=== PATIENT | male | born 1960 | race Caucasian/White ===

== ENCOUNTER 2017-07-08 15:14 | Emergency (ER) | payer BC ==
[~2017-07-08 15:14] MED LIST: CYCL10TA6 PO; DABI150C PO; DILT1CAP PO; FURO80TA63 PO; GLIM2TAB PO; HYDR-5688 PO; MELATAB2 PO; METO5TAB25 PO; POTA20TA16 PO; SUCR1TAB PO; SYN100 PO; TRC145 PO; TRIA0.2579 PO
[2017-07-08 15:20] VITALS: TEMP 36.4; Ht 177.8 cm
[2017-07-08] MEDS ORDERED: MoRPHine SULFATE 10 MG/ML CARP/VIAL IM STA (15:40)
[2017-07-08] MEDS ORDERED: MULTTAB58 PO (15:42)
[2017-07-08] MEDS ORDERED: ONDANSETRON 4MG OD TAB PO ONE (15:45)
[2017-07-08] MEDS ORDERED: DILT360C17 PO (15:59)
[2017-07-08] MEDS ORDERED: ESZO1TAB19 PO (15:59)
[2017-07-08] MEDS ORDERED: LEVO112T4 PO (15:59)
[2017-07-08] MEDS ORDERED: HYDR-3983 PO (15:59)
[2017-07-08] MEDS ORDERED: LSN5 PO (15:59)
[2017-07-08] MEDS ORDERED: FLX10 PO (16:04)
[2017-07-08] MEDS ORDERED: LSX80 PO (16:04)
[2017-07-08] MEDS ORDERED: CHOL20002 PO (16:07)
[2017-07-08] MEDS ORDERED: [UNRECOGNIZED DRUG - CODE] PO (16:07)
[2017-07-08] MEDS ORDERED: DULA1INJ INJ (16:07)
--- NOTE | 2017-07-08 16:42 | DIAGNOSTIC IMAGING REPORT ---
LUMBAR SPINE WITHOUT CLINICAL HISTORY: Right lumbar radiculitis. COMPARISON STUDY: CT of the abdomen and pelvis July 28, 2016. FINDINGS: For purposes of numbering on this exam, the L5-S1 disc space is assigned to axial image 669 of 783. Alignment of the lumbar spine is anatomic with the exception of mild levoscoliosis. Vertebral body heights are maintained. No fracture or suspicious lesion is dense 5. Note is made of a 3.9 x 3.7 cm infrarenal saccular abdominal aortic aneurysm with displaced intimal calcifications. This is similar to exam of July 28, 2016. There is no rupture. The left kidney is surgically absent. Central canal and neural foramen are suboptimally assessed by CT. T12-L1: The central canal and neural foramen are patent. L1-L2: The central canal and neural foramen are patent. L2-L3: There is mild disc bulge, ligamentous hypertrophy and facet arthrosis. There is mild narrowing of the central canal and lateral recesses. The neural foramen are patent. L3-L4: There is disc space narrowing with osteophytosis and vacuum disc phenomenon. There is disc bulge with ligamentous hypertrophy and facet arthrosis. Findings result in moderate narrowing of the central canal, lateral recesses and the right neural foramen. L4-L5: Disc bulge is noted. There is mild narrowing of the central canal and neural foramen. L5-S1: There is disc space narrowing with disc bulge and vacuum disc phenomenon. There is mild during of the central canal and lateral recesses with mild narrowing of the left neural foramen. IMPRESSION: 1. No acute lumbar spine fracture or subluxation. 2. Moderate multilevel degenerative disc disease and facet arthrosis, most pronounced at L3-L4. Suboptimal evaluation of the central canal and neural foramen but suspected moderate central canal stenosis at L3-L4. No disc herniation identified by CT. 3. Mild levoscoliosis of the lumbar spine. 4. 3.9 cm infrarenal saccular abdominal aortic aneurysm which is similar to CT of July 28, 2016. No rupture. Electronically signed by: Abdifatah Bledsoe M.D. 07/08/2017 4:40 PM Dictated Date/Time: 07/08/2017 4:28 PM
[2017-07-08 18:45] VITALS: BP 106/65; PULSE 89; O2SAT 96
[2017-07-08] MEDS ORDERED: OXYCODONE IR HOME PACK PO ONE (18:45)
[2017-07-08] MEDS ORDERED: FLEXERIL HOME PACK 10 MG VIAL PO ONE (18:45)
[2017-07-08] MEDS ORDERED: CYCL10TA6 PO (18:47)
[2017-07-08] MEDS ORDERED: OXYC1TAB3 PO (18:47)
[2017-07-08] MEDS ORDERED: TPRSR/100 PO (20:28)
[2017-07-08] MEDS ORDERED: MAGN1TAB19 PO (20:28)
[2017-07-08] MEDS ORDERED: PRAV80TA2 PO (20:33)
[2017-07-08] MEDS ORDERED: OXGN (20:33)
--- NOTE | 2017-07-08 22:52 | EMERGENCY ROOM VISIT NOTE ---
History First contact with patient: 15:28 Chief Complaint: LEG PAIN,LEG INJURY Stated Complaint: INTENSE PAIN IN RT LEG, LEG NOT WORKING History of Present Illness The patient is a 57 year old male who presents to the Emergency Room with complaints of lower pain radiating into the right lower extremity with weakness. The patient reports that he cannot put any weight on the leg at this point. The patient reports a history of chronic lumbar pain and osteoarthritis of the back and joints. He was seen by orthopedics and may for a left knee pain. A steroid shot was administered to the knee without any significant relief. The patient now reports that he has had right leg pain for the past 2 weeks. The pain is getting worse. The patient has an appointment scheduled with Dr. Guzman on 07/16. The patient reports that the weakness has significantly worsened over the past 2 days. He denies any recent infections, fevers or chills. He denies any recent trauma to the back. He has been taking [place] 7.5/ 325 without relief. He was able to find a left over oxycodone at home that allowed him to sleep last night for 8 hours. The patient reports that he has chronic diarrhea, but denies stool or urine incontinence. He denies saddle anesthesias. He reports that he cannot lift the leg because of pain and weakness. He currently rates his discomfort a 9 out of 10. Review of Systems 10 system review was performed and was negative except for pertinent positives and negatives as indicated in history of present illness Past Medical/Surgical History Medical Problems: (1) Abdominal pain (2) Acute on chronic diastolic heart failure (3) Acute on chronic systolic heart failure (4) GENE (acute kidney injury) (5) Anticoagulants,Lt,Current Use (6) Atrial fibrillation (7) Congestive Heart Failure Nos (8) Coronary Atherosclerosis Of [place] Coronary Vessel (9) Diabetes mellitus type 2 (10) Hyperlipidemia (11) Hypertensive disorder, systemic arterial (12) Hypotension (13) Hypothyroidism (14) Obstructive Sleep Apnea (Adult) (Pediatric) (15) possible ileus (16) Renal cell carcinoma (17) Renal insufficiency (18) Renal insufficiency Surgical Problems: (1) S/p nephrectomy Family History No family history noted Social History Smoking Status: Former Smoker Marital Status: single Occupation Status: disabled Current/Historical Medications Scheduled Cholecalciferol (Vitamin D3 Super Strength), 2,000 INTER.UNIT PO DAILY Cyclobenzaprine HCl (Cyclobenzaprine HCl), 10 MG PO HS Dabigatran Etexilate Mesylate (Pradaxa), 150 MG PO BID Diltiazem Hcl Coated Beads (Cardizem Cd), 360 MG PO DAILY Dulaglutide (Trulicity), 0.75 MG INJ WK Fenofibrate (Fenofibrate), 145 MG PO DAILY Ferrous Sulfate (Ferrousul), 325 MG PO DAILY Furosemide (Furosemide), 80 MG PO BID Home O2 Therapy (Oxygen), 2 LITERS NA HS Levothyroxine Sodium (Levothyroxine Sodium), 112 MCG PO Q2D Lisinopril (Lisinopril), 5 MG PO DAILY Magnesium Oxide (Mg Supplement (Magnesium Oxide), 400 MG PO Q2D Metoprolol Succinate (Metoprolol Succinate ER), 100 MG PO DAILY Multiple Vitamin (Multivitamin), 1 TAB PO DAILY Potassium Ext Rel (Klor-Con), 1 DOSE PO BID Pravastatin Sodium (Pravastatin Sodium), 80 MG PO DAILY Scheduled PRN Cyclobenzaprine Hcl (Flexeril), 10 MG PO TID PRN for spasm Eszopiclone (Eszopiclone), 1 MG PO HS PRN for Sleep Hydrocodone/Acetaminophen 7.5MG/325MG ([place] 7.5MG/325MG), 1 TAB PO Q4-6HRS PRN for Pain Metolazone (Zaroxolyn), 5 MG PO DAILY PRN for Fluid Retention Oxycodone Ir (Roxicodone Ir), 1-2 TAB PO Q4H PRN for Pain Physical Exam Vital Signs Date Time Temp Pulse Resp B/P (MAP) Pulse Ox O2 Delivery O2 Flow Rate FiO2 07/08/17 18:45 89 20 106/65 96 Room Air 07/08/17 17:06 98 24 115/73 92 Room Air 07/08/17 15:20 36.4 82 18 116/64 96 Room Air Physical Exam CONSTITUTIONAL: Healthy and well nourished. Alert and oriented X 3 with positive affect. Patient appears in mild discomfort from pain. HEENT: Normocephalic, atraumatic. Pupils equal, round and reactive. NECK: Full active range of motion without discomfort. RESPIRATORY: Clear to auscultation bilaterally with no wheezing, crackles, rhonchi or stridor. CARDIOVASCULAR: Regular rate and rhythm with no murmurs, rubs or gallops. GASTROINTESTINAL: Bowel sounds present in all quadrants. Soft and nontender to palpation. MUSCULOSKELETAL: Examination of the right lower extremity shows that the patient has difficulty lifting the leg off of the bed. Ankle plantar/ dorsiflexion strength is 2 out of 5 on the right, 4 out of 5 on the left. Negative logroll bilaterally. Positive straight leg raise on the right. The patient does have tenderness to palpation through the right lower lumbar paraspinous muscle and SI joints. Pedal pulses are intact. INTEGUMENTARY: No rash or other significant dermatologic conditions noted. NEUROLOGIC: No focal neurologic deficits noted. Deep tendon reflexes are 2+ and symmetric bilaterally. Feet and toes are sensory intact. Medical Decision & Procedures ER Provider Diagnostic Interpretation: Noncontrast CT of the lumbar spine shows the following: LUMBAR SPINE WITHOUT CLINICAL HISTORY: Right lumbar radiculitis. COMPARISON STUDY: CT of the abdomen and pelvis July 28, 2016. FINDINGS: For purposes of numbering on this exam, the L5-S1 disc space is assigned to axial image 669 of 783. Alignment of the lumbar spine is anatomic with the exception of mild levoscoliosis. Vertebral body heights are maintained. No fracture or suspicious lesion is dense 5. Note is made of a 3.9 x 3.7 cm infrarenal saccular abdominal aortic aneurysm with displaced intimal calcifications. This is similar to exam of July 28, 2016. There is no rupture. The left kidney is surgically absent. Central canal and neural foramen are suboptimally assessed by CT. T12-L1: The central canal and neural foramen are patent. L1-L2: The central canal and neural foramen are patent. L2-L3: There is mild disc bulge, ligamentous hypertrophy and facet arthrosis. There is mild narrowing of the central canal and lateral recesses. The neural foramen are patent. L3-L4: There is disc space narrowing with osteophytosis and vacuum disc phenomenon. There is disc bulge with ligamentous hypertrophy and facet arthrosis. Findings result in moderate narrowing of the central canal, lateral recesses and the right neural foramen. L4-L5: Disc bulge is noted. There is mild narrowing of the central canal and neural foramen. L5-S1: There is disc space narrowing with disc bulge and vacuum disc phenomenon. There is mild during of the central canal and lateral recesses with mild narrowing of the left neural foramen. IMPRESSION: 1. No acute lumbar spine fracture or subluxation. 2. Moderate multilevel degenerative disc disease and facet arthrosis, most pronounced at L3-L4. Suboptimal evaluation of the central canal and neural foramen but suspected moderate central canal stenosis at L3-L4. No disc herniation identified by CT. 3. Mild levoscoliosis of the lumbar spine. 4. 3.9 cm infrarenal saccular abdominal aortic aneurysm which is similar to CT of July 28, 2016. No rupture. Medications Administered Medications (Trade) Dose Ordered Sig/Elizabeth Route Start Time Stop Time Status Last Admin Dose Admin Morphine Sulfate (MoRPHine SULFATE INJ) 10 mg NOW STAT IM 07/08/17 15:40 07/08/17 15:42 DC 07/08/17 16:00 10 MG Ondansetron HCl (Zofran Odt) 4 mg ONE ONCE PO 07/08/17 15:45 07/08/17 15:46 DC 07/08/17 15:59 4 MG Oxycodone HCl (Roxicodone Immediate Rel 5MG Home Pack) 1 homepack UD ONCE PO 07/08/17 18:45 07/08/17 18:46 DC 07/08/17 19:00 1 HOMEPACK Cyclobenzaprine HCl (FLEXERIL 10MG Home Pack) 1 homepack UD ONCE PO 07/08/17 18:45 07/08/17 18:46 DC 07/08/17 19:00 1 HOMEPACK ED Course Patient history and physical exam were performed. Nurse's notes were reviewed. Vital signs were reviewed and normal. The patient appears in moderate discomfort from pain. Because the patient has cochlear implants, an MRI cannot be performed. The patient was administered morphine 10 mg IM and Zofran [address] of the lumbar spine shows degenerative changes with probable moderate central canal stenosis. The patient was advised of his CT findings. He reports that the pain medicine provided only provided minimal relief, but refused any additional medications. The patient is requesting a prescription for a muscle relaxer, and something stronger than his hydrocodone 7.5/325. He again reports that oxycodone works better for him. I'll ambulation prior to discharge shows the patient was able to ambulate well with a walker. The walker was dispensed for his use. Review of the [place] Prescription Drug Monitoring Program shows that the patient receives monthly prescriptions from his PCP. Unfortunate, I reviewed this after I had already sent prescriptions to his pharmacy for oxycodone 5 mg and Flexeril 10 mg. I explained to the patient that he MUST contact his family doctor to advise them that he received a prescription for narcotics in our emergency department. The patient was advised that he likely has a pain management contract, and if he does not advise them, he runs the risk of his contract being canceled. The patient reports that he will call the office first thing in the morning. Upon further questioning, the patient reports that he also drove here, and would like to drive home. The patient was advised that our policy is that he must wait a total 6 hours after receiving his opioid analgesics, or call someone for a ride. The patient reports that he would try to call someone to come get him. Someone did come to pick him up from the emergency department. The patient was otherwise instructed to contact [facility] to advise them of his visit here. He may also try to call Dr. Guzman's office for a sooner appointment, or an appointment with one of the spine surgeons in the same office. The patient was advised that the emergency department would not provide chronic pain management, and this must also be discussed with his PCP. The patient rated his discomfort a 4 out of 10 at the time of discharge. Medical Decision Patient history and clinical exam findings are not consistent with conus medullaris or cauda equina syndrome. He does have notable weakness of the right leg. Unfortunately, an MRI cannot be performed because he has cochlear implants. He will need to discuss further workup options with Dr. Guzman or orthopedics/spine surgery. [place] Drug Monitoring Program Search Results: patient reviewed within database, see additional documentation Impression Primary Impression: Right lumbar radiculitis Departure Information Prescriptions Oxycodone Ir (Roxicodone Ir) 5 Mg Tab 1-2 TAB PO Q4H Y for Pain, #24 TAB For Initial Treatment Prov: Jose Johnson PA 07/08/17 Cyclobenzaprine Hcl (FLEXERIL) 10 Mg Tab 10 MG PO TID Y for spasm, #15 TAB Prov: Jose Johnson PA 07/08/17 Referrals Drew James D.O. (PCP) Forms HOME CARE DOCUMENTATION FORM, IMPORTANT VISIT INFORMATION Patient Instructions [facility]
== END 2017-07-08 19:25 | disposition home or self-care (01) ==
LOC: C.EDB 15:15 → C.EDC 19:25
DX: M54.16 Radiculopathy, lumbar region (principal); I50.9 Heart failure, unspecified; N17.9 Acute kidney failure, unspecified; E11.9 Type 2 diabetes mellitus without complications; E78.5 Hyperlipidemia, unspecified; I10 Essential (primary) hypertension; E03.9 Hypothyroidism, unspecified; G47.33 Obstructive sleep apnea (adult) (pediatric); Z87.891 Personal history of nicotine dependence

== ENCOUNTER 2017-10-17 12:14 | Inpatient (IN) | payer BC ==
[~2017-10-17] VITALS: Ht 177.8 cm; Wt 101.2 kg
[~2017-10-17 12:14] MED LIST changes: +CHOL20002 PO; -CYCL10TA6 PO; -DILT1CAP PO; +DILT360C17 PO; +DULA1INJ INJ; +ESZO1TAB19 PO; +FLX10 PO; -FURO80TA63 PO; -GLIM2TAB PO; +HYDR-3983 PO; -HYDR-5688 PO; +LEVO112T4 PO; +LSN5 PO; +LSX80 PO; +MAGN1TAB19 PO; -MELATAB2 PO; +MULTTAB58 PO; +OXGN; +OXYC1TAB3 PO; +PRAV80TA2 PO; -SUCR1TAB PO; -SYN100 PO; +TPRSR/100 PO; -TRIA0.2579 PO; +[UNRECOGNIZED DRUG - CODE] PO
[2017-10-17 13:21] VITALS: BP 116/74; PULSE 100; TEMP 36.5; O2SAT 94
[2017-10-17 13:45] VITALS: BP 116/74; PULSE 100; TEMP 36.5; O2SAT 98; Ht 177.8 cm; Wt 101.2 kg
[2017-10-17 15:07] LABS: BASO % 0.1 %; BASO ABS # 0.01 K/uL (0-0.2); COMPLETE YES; EOS % 2.3 %; HEMATOCRIT 39.1 % (42-52); IG% 0.1 %; LYMPH % 9.7 %; LYMPH ABS # 0.72 K/uL (1.2-3.4); MEAN CELL VOLUME 89.1 fL (80-100); MEAN CORPUSCULAR HEMOGLOBIN 29.4 pg (25-34); MEAN PLATELET VOLUME 10.5 fL (7.4-10.4); MONO % 8.3 %; NEUT % 79.5 %; PLATELET COUNT 161 K/uL (130-400); RED BLOOD COUNT 4.39 M/uL (4.7-6.1); WHITE BLOOD COUNT 7.46 K/uL (4.8-10.8)
[2017-10-17 15:10] VITALS: BP 111/75; PULSE 88; TEMP 36.7; O2SAT 97
[2017-10-17 15:30] LABS: CALCIUM 10.3 mg/dl (8.5-10.1); CREATININE 1.39 mg/dl (0.60-1.40); POTASSIUM 3.8 mmol/L (3.5-5.1)
[2017-10-17] MEDS ORDERED: METOLAZONE 5 MG TAB PO PRN (15:30)
[2017-10-17] MEDS ORDERED: HYDROCODONE/ACETAMINOPHEN 7.5/325MG TAB PO PRN (15:30)
[2017-10-17] MEDS ORDERED: OXYCODONE HCL IR 5 MG TAB (IMMEDIATE RELEASE) PO PRN (15:30)
[2017-10-17] MEDS ORDERED: ESZOPICLONE 1 MG TAB PO PRN (15:30)
[2017-10-17] MEDS ORDERED: DEXTROSE 50% 50 ML SYR IV PRN (15:45)
[2017-10-17] MEDS ORDERED: POLYETHYLENE (MIRALAX) 17 GM PACK PO PRN (15:45)
[2017-10-17] MEDS ORDERED: GLUCAGON FOR INJ 1 MG VIAL SQ PRN (15:45)
[2017-10-17] MEDS ORDERED: ZOLPIDEM TARTRATE 5 MG TAB PO PRN (15:45)
[2017-10-17] MEDS ORDERED: MAGNESIUM HYDROXIDE SUSP 30 ML UDC PO PRN (15:45)
[2017-10-17] MEDS ORDERED: ACETAMINOPHEN 325 MG TAB PO PRN (15:45)
[2017-10-17] MEDS ORDERED: ALUMINUM/MAGNESIUM/SIMETH (MAALOX MAX) 30 ML UDC PO PRN (15:45)
[2017-10-17] MEDS ORDERED: GLUCOSE 10 TABS/TUBE PO PRN (15:45)
[2017-10-17] MEDS ORDERED: NITROGLYCERIN 0.4 MG SL PER TAB CHARGE SL PRN (15:45)
[2017-10-17] MEDS ORDERED: GLUCOSE 40% GEL 15 GM TUBE PO PRN (15:45)
[2017-10-17 16:00] VITALS: O2SAT 97
[2017-10-17] MEDS ORDERED: APIX1TAB3 PO (16:03)
[2017-10-17] MEDS ORDERED: DILT-113 PO (16:04)
[2017-10-17 16:05] LABS: INR 1.1 (0.9-1.1); PROTHROMBIN TIME (PATIENT) 11.7 SECONDS (9.0-12.0)
[2017-10-17] MEDS: INSULIN ASPART 100 UNITS/ML 3 ML PEN SC SCH ×2 (16:15→20:22)
--- NOTE | 2017-10-17 16:26 | DIAGNOSTIC IMAGING REPORT ---
SINGLE VIEW CHEST CLINICAL HISTORY: Dyspnea. FINDINGS: An AP, portable, upright chest radiograph is compared to study dated 07/19/2015 and correlated with chest CT dated 05/03/2012. The examination is degraded by portable technique and patient rotation. There is significant mediastinal widening. The heart appears mildly enlarged. The pulmonary vasculature is noncongested. There are layering pleural effusions with bibasilar atelectasis. No pneumothorax is seen. The skeletal structures are osteopenic. The bony thorax is grossly intact. IMPRESSION: 1. There is marked mediastinal widening, which represents a significant change from 07/19/2015. This could represent mass lesion/adenopathy versus aneurysm. Correlation with a CT angiogram of the chest is recommended for further assessment. 2. Cardiomegaly without radiographic evidence of congestive failure. 3. Bilateral pleural effusions with associated consolidation. Electronically signed by: Norris Bell M.D. 10/17/2017 4:24 PM Dictated Date/Time: 10/17/2017 4:22 PM
[2017-10-17] MEDS ORDERED: FUROSEMIDE 80 MG TAB PO SCH (17:00)
[2017-10-17 17:10] LABS: CKMB/CK RATIO 1.7 (0-3.0)
[2017-10-17] MEDS ORDERED: OPTIRAY 320 IV PRN (17:45)
--- NOTE | 2017-10-17 18:09 | DIAGNOSTIC IMAGING REPORT ---
CT ANGIOGRAM OF THE CHEST CLINICAL HISTORY: Mediastinal widening seen by x-ray. Reported history of recently diagnosed lymphoma. COMPARISON STUDY: Chest x-ray dated 10/17/2017. Chest CT dated 05/03/2012. TECHNIQUE: Following the IV administration of 115 cc of Optiray 320, CT angiogram of the chest was performed from the thoracic inlet to the upper abdomen utilizing the dissection protocol. Images are reviewed in the axial, sagittal, and coronal planes. 3-D MIPS images are created and assessed. IV contrast was administered without complication. A dose lowering technique was utilized adhering to the principles of ALARA. CT DOSE: 623.03 mGy.cm FINDINGS: Thyroid: Imaged portions of the thyroid gland are normal in size and attenuation. Thoracic aorta: There is mild atherosclerotic calcification of the thoracic aorta, which is normal in caliber and demonstrates standard 3-vessel arch anatomy. No dissection is seen. Pulmonary vasculature: The pulmonary trunk is normal in caliber. The left lower lobe pulmonary artery is narrowed by the large mediastinal mass. There are no central filling defects identified in the pulmonary vessels to suggest pulmonary embolus. Note that this examination was not specifically protocoled to assess for pulmonary emboli. Heart: The heart is mildly enlarged and without pericardial effusion. There are coronary artery calcifications. Lungs and pleural spaces: There are small to moderate layering pleural effusions with associated atelectasis. The large mediastinal mass significantly narrows the ravindra, in the main stem bronchi, left greater than right. There is near complete occlusion of the left lower lobe bronchus. Mediastinum: There is a large mediastinal mass which measures approximately 16 x 7 x 13.5 cm. This is centered in the subcarinal space, and extends from the AP window to the diaphragmatic hiatus. Ange: There is abnormal soft tissue in the ange bilaterally extending along the bronchial vascular bundles, greatest in the left lower lobe. Axillae: There is no axillary lymphadenopathy. Upper abdomen: The spleen is enlarged measuring over 14 cm in length. A tiny hiatal hernia is identified. A prominent gastrohepatic lymph node measures up to 11 mm in short axis. The esophagus is filled with fluid to the level of the thoracic inlet. Skeletal structures: No lytic or blastic bony lesions are seen. IMPRESSION: 1. Unremarkable CT angiogram of the thoracic aorta. 2. There is a large heterogeneous mass lesion in the mediastinum as above, likely related to the reported history of recently diagnosed lymphoma. 3. 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 4. Abnormal soft tissue tracking along the bronchovascular bundles in the lower lobes likely represents lymphomatous involvement. 5. Small to moderate pleural effusions with associated atelectasis. 6. Splenomegaly. 7. There is fluid filling the upper esophagus. This is likely related to some degree of esophageal obstruction due to the mediastinal mass, and may place the patient at risk for aspiration. 8. Additional findings as above. Electronically signed by: Norris Bell M.D. 10/17/2017 6:08 PM Dictated Date/Time: 10/17/2017 5:59 PM
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
[2017-10-17] MEDS ORDERED: FUROSEMIDE INJ 40 MG in SYRINGE 0 ML IV SCH (19:00)
[2017-10-17 20:00] VITALS: BP 106/66; PULSE 74; TEMP 36.6; O2SAT 98
[2017-10-17] MEDS: MoRPHine SULFATE 2 MG/ML CARP IV PRN ×2 (20:13→22:11)
[2017-10-17] MEDS: METOPROLOL TARTRATE 1 MG/ML VIAL IV. SCH (20:15)
[2017-10-17] MEDS: APIXABAN 2.5 MG TAB PO SCH (20:23)
[2017-10-17] MEDS ORDERED: BISACODYL 10 MG SUPP PR PRN (20:30)
[2017-10-17] MEDS ORDERED: FENTANYL PATCH REMOVE & WASTE SCH (20:59)
[2017-10-17] MEDS ORDERED: FENTANYL 12 MCG/HR TDSY TD SCH (21:00)
[2017-10-17] MEDS ORDERED: POTASSIUM CHLORIDE 10 MEQ TABCR PO SCH (21:00)
[2017-10-17] MEDS ORDERED: DABIGATRAN ELEXILATE 75 MG CAP PO SCH (21:00)
[2017-10-17] MEDS ORDERED: CYCLOBENZAPRINE HCL 10 MG TAB PO SCH (21:00)
[2017-10-17] MEDS ORDERED: NURSING VERBAL MED ORDER ONE (23:30)
[2017-10-17 23:56] VITALS: BP 98/58; PULSE 73; TEMP 36.5; O2SAT 97
[2017-10-17] MEDS: CHECK FENTANYL PATCH PLACEMENT SCH (23:56)
[2017-10-18] VITALS (10 sets, daily range): BP systolic 106–114; BP diastolic 69–73; PULSE 76–119; TEMP 36.2–36.6; O2SAT 91–98
[2017-10-18] MEDS ORDERED: LEVOFLOXACIN / D5W 500 MG in PREMIXED IN D5W 100 ML IV SCH
[2017-10-18] MEDS: MoRPHine SULFATE 2 MG/ML CARP IV PRN ×4 (00:20→20:09)
[2017-10-18] MEDS ORDERED: NURSING VERBAL MED ORDER ONE (01:30)
[2017-10-18] MEDS ORDERED: ONDANSETRON INJ 2 MG/ML 2 ML VIAL ONE (01:33)
[2017-10-18] MEDS: METOPROLOL TARTRATE 1 MG/ML VIAL IV. SCH ×4 (01:42→20:08)
[2017-10-18] MEDS: INSULIN ASPART 100 UNITS/ML 3 ML PEN SC SCH ×4 (06:00→23:27)
[2017-10-18 06:58] LABS: HEMATOCRIT 40.5 % (42-52); MEAN CELL VOLUME 91.4 fL (80-100); MEAN CORPUSCULAR HEMOGLOBIN 28.7 pg (25-34); MEAN CORPUSCULAR HGB CONC 31.4 g/dl (32-36); MEAN PLATELET VOLUME 10.3 fL (7.4-10.4); PLATELET COUNT 148 K/uL (130-400); RED BLOOD COUNT 4.43 M/uL (4.7-6.1)
[2017-10-18] MEDS: ALBUT/IPRATROP 3MG/0.5MG NEB 3 ML VIAL INH SCH ×4 (07:12→19:30)
[2017-10-18 07:29] LABS: BUN/CREATININE RATIO 19.5 (10-20); CALCIUM 9.7 mg/dl (8.5-10.1); CREATININE 1.39 mg/dl (0.60-1.40); POTASSIUM 3.9 mmol/L (3.5-5.1)
[2017-10-18 07:30] LABS: URINE APPEARANCE CLEAR (CLEAR); URINE BILIRUBIN NEG (NEG); URINE COLOR DK YELLOW; URINE NITRITE NEG (NEG); URINE SPECIFIC GRAVITY > 1.045 (1.000-1.030); UROBILINOGEN NEG (NEG); ZZUR CULT IF INDIC CLEAN CATCH NO
[2017-10-18 07:32] LABS: CHOLESTEROL/HDL RATIO 2.6
[2017-10-18 07:37] LABS: MANUAL MICROSCOPIC REQUIRED? NO; REVIEW REQ? NO
[2017-10-18 07:41] LABS: ESTIMATED AVERAGE GLUCOSE 134 mg/dl; HA1C FLAG Normal (Normal)
[2017-10-18] MEDS: CHECK FENTANYL PATCH PLACEMENT SCH ×3 (08:00→23:19)
[2017-10-18] MEDS: APIXABAN 2.5 MG TAB PO SCH (08:31)
[2017-10-18] MEDS ORDERED: LISINOPRIL 5 MG TAB PO SCH (09:00)
[2017-10-18] MEDS ORDERED: MULTIVITAMIN TAB PO SCH (09:00)
[2017-10-18] MEDS ORDERED: ASPIRIN 81 MG ECTAB PO SCH (09:00)
[2017-10-18] MEDS ORDERED: PRAVASTATIN SOD 40 MG TAB PO SCH (09:00)
[2017-10-18] MEDS ORDERED: FERROUS SULFATE 325 MG TAB PO SCH (09:00)
[2017-10-18] MEDS ORDERED: FENOFIBRATE 145 MG TAB PO SCH (09:00)
[2017-10-18] MEDS ORDERED: CHOLECALCIFEROL 1000 INTER.UNIT TAB PO SCH (09:00)
[2017-10-18] MEDS ORDERED: METOPROLOL SUCC 50MG EXT REL TAB PO SCH (09:00)
[2017-10-18] MEDS ORDERED: DILTIAZEM HCL 180 MG ER CAP PO SCH (09:00)
[2017-10-18] MEDS ORDERED: FUROSEMIDE INJ 40 MG in SYRINGE 0 ML IV SCH (09:00)
--- NOTE | 2017-10-18 09:21 | Progress Note ---
Progress Note Date of Service Oct 18, 2017. Progress Note Full consultation was dictated today Recommendations Consider use of TPN for nutritional support Consider referral to tertiary center as an esophageal stent is likely to result in respiratory compromise due to the mass Patient may benefit from feeding tube placement, given his prior abdominal surgeries this is likely to be complicated and would be best performed at a tertiary center
--- NOTE | 2017-10-18 09:41 | GASTROINTESTINAL CONSULTATION ---
DATE OF CONSULTATION: 10/18/2017 CHIEF COMPLAINT: Shortness of breath. HISTORY OF PRESENT ILLNESS: The patient is a 57-year-old male who was referred to the emergency room by his oncologist due to progressive shortness of breath and worsening difficulty with swallowing over the past month. The patient has a recently diagnosed small cell lung cancer notable for mediastinal lymphadenopathy. He recently had a bronchoscopy performed by Dr. Ovalles at [facility] who made the diagnosis. The patient was referred to medical oncology at [facility]. Details of this meeting are not available for review today. The patient was referred to Dr. Olsen as he lives in the [facility]. Today, the patient notes that he continues to have shortness of breath and is unable to lie flat. He describes having inability to swallow solids or liquids which has been progressive over the last few weeks. 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 PAST MEDICAL HISTORY: 1. Congestive heart failure. 2. Chronic renal insufficiency. 3. Atrial fibrillation. 4. Diabetes. 5. Hypercholesterolemia. 6. Hypertension. 7. Hypothyroidism. 8. Obstructive sleep apnea. 9. Renal cell carcinoma. PAST SURGICAL HISTORY: 1. Right nephrectomy. 2. Duodenotomy performed after abdominal trauma. OUTPATIENT MEDICATIONS: 1. Eliquis 5 mg daily. 2. Neurontin 300 mg daily. 3. Metoprolol 50 mg daily. 4. Diltiazem 180 mg daily. 5. Prednisone 20 mg daily. 6. Furosemide 20 mg daily. 7. Metolazone 5 mg daily. 8. Levothyroxine 112 mcg daily. 9. Pepcid 20 mg daily. 10. Pravastatin 80 mg at bedtime. 11. Albuterol inhaler. 12. Advair inhaler. 13. Tricor 145 mg daily. 14. Oxycodone IR 5 mg p.r.n. 15. Trulicity one time weekly. 16. Allopurinol 100 mg daily. ALLERGIES: PENICILLIN. SOCIAL HISTORY: Prior smoker, 1.5 pack per day x30 years. The patient does drink alcohol 1-2 drinks per day. FAMILY HISTORY: Brother with no significant problems. Father with a history of atherosclerotic coronary artery disease and a myocardial infarction. Mother with history of diabetes and stroke. REVIEW OF SYSTEMS: CONSTITUTIONAL: The patient with history of weight loss and weakness. RESPIRATORY: The patient with cough, shortness of breath. CARDIOVASCULAR: The patient without chest pain today. Denies palpitations today. GASTROINTESTINAL: The patient with history of nausea, vomiting. NEUROLOGIC: The patient without double vision. Patient with diffuse weakness. ENDOCRINE: The patient with fatigue. No polydipsia noted. MUSCULOSKELETAL: The patient with no new joint pains or muscle pains. PSYCHIATRIC: History of depression. DERMATOLOGY: No rashes, no itching noted by patient. PHYSICAL EXAMINATION: VITAL SIGNS: Temperature is 36.3, pulse 76, respiratory rate 22, blood pressure is 107/73, pulse ox 97% on 2 liters by nasal cannula. HEENT: No scleral icterus noted. NECK: No JVD noted. LUNGS: The patient with wheezes bilaterally, crackles in the bases on the left with poor air sounds throughout. CARDIAC: Irregular rhythm. ABDOMEN: Soft, nontender today. No rebound or peritoneal signs. EXTREMITIES: 1-2+ pitting edema noted bilaterally with stasis dermatitis noted. NEUROLOGIC: Cranial nerves grossly intact, motor grossly intact. No asterixis noted. LABORATORIES: White blood cell count 5.2, hemoglobin is 12.7, hematocrit is 40.5, platelet count is 148. Chemistry: Sodium is 135, potassium 3.9, chloride is 96, BUN is 8, creatinine 1.39, calcium 9.7, magnesium 2.0. Triglycerides are 210, cholesterol was 123. IMAGING STUDIES: Reviewed, please see CT angio report from 10/17/2017. IMPRESSION: A 57-year-old male with a history of small cell lung cancer. GI is consulted due to dysphagia. The specific request was made for need of esophageal stenting. I reviewed the patient's imaging study and it appears he has a very large mediastinal mass that extends from the trachea up near the region of the AP window down to the ravindra and distal esophagus. Based on the appearance, he would need a rather long esophageal stent and there is a high probability that this could result in a tracheal compression or compromise resulting in respiratory distress. Given this and his prior surgical history, it may be best to refer the patient to a tertiary care medical center for an expert opinion with regard to options of therapy. RECOMMENDATIONS: 1. N.p.o. 2. Consider TPN. 3. Consider referral to a tertiary center as this would be the best approach for this complex patient. We appreciate this consult. Please call with any questions or concerns during the remainder of the hospital admission.
--- NOTE | 2017-10-18 09:45 | ECHOCARDIOGRAM REPORT ---
*NOTICE TO RECEIVING [employer] This information is strictly Confidential and protected under [place] law. [place] law prohibits you from making any further disclosure of this information unless further disclosure is expressly permitted by the written consent of the person to whom it pertains or is authorized by law. A general authorization for the release of medical or other information is not sufficient for this purpose. Hospital accepts no responsibility if the information is made available to any other person, INCLUDING THE PATIENT. Interpretation Summary * Name: TYREE LARSON Study Date: 10/18/2017 07:35 AM BP: 114/70 mmHg * Patient Location: C.2T\S\E217\S\1 HR: 76 * : 1960 (M/d/yyyy) Gender: Male Height: 70 in * Age: 57 yrs Ethnicity: CA Weight: 220 lb * Ordering Physician: Kathie Garza * Referring Physician: Shahzad Blue * Performed By: Noelle Crowell RDCS * * Reason For Study: Chest pain * BSA: 2.2 m2 * -- Conclusions -- * Normal LV chamber size and wall thickness. * Normal LV systolic function, EF 60-65%. * Flattened septum is consistent with RV pressure/volume overload, otherwise, no segmental left ventricular wall motion abnormalities are noted. * Diastolic dysfunction is present based on left atrial enlargement. * Aortic valve sclerosis moderate, without significant aortic valvular stenosis. * The mitral valve leaflets appear thickened, but open well. * Calcified mitral apparatus. * There is mild mitral regurgitation. * Mild tricuspid regurgitation. * Mild biatrial enlargement. * Pulmonary hypertension is present with a PASP of 48 mmHg assuming a RA pressure of 15 mmHg. Procedure Details * A complete two-dimensional transthoracic echocardiogram was performed (2D, M-mode, Doppler and color flow Doppler). * A contrast injection of Definity was performed to improve assessment of LV function. * Contrast was injected into an intravenous site in the right arm. * One vial of Definity ultrasound contrast was diluted in normal saline to a total volume of 10 ml. A total of '2' ml of solution was administered during imaging. * Lot # [id number] of Definity utilized for procedure. * Expiration date NOV 12. * The attending nurse who injected the contrast agent was Brooks Chavez RN. Left Ventricle * The left ventricle is normal in size. * There is normal left ventricular wall thickness. * Ejection Fraction = 60-65%. * Left ventricular systolic function is normal. * No segmental left ventricular wall motion abnormalities are noted. * Flattened septum is consistent with RV pressure/volume overload. Right Ventricle * The right ventricle is mildly dilated. * The right ventricular systolic function is normal as assessed by tricuspid annular plane systolic excursion (TAPSE) (normal >1.5 cm). Atria * The left atrium is mildly dilated. * The right atrium is mildly dilated. * No ASD detected; PFO is not assessed. Mitral Valve * The mitral valve leaflets appear thickened, but open well. * Calcified mitral apparatus. * There is no mitral valve stenosis. * There is mild mitral regurgitation. Tricuspid Valve * The tricuspid valve anatomy is normal. * There is no tricuspid stenosis. * There is mild tricuspid regurgitation. Aortic Valve * The aortic valve is not well visualized. * Aortic valve sclerosis moderate, without significant aortic valvular stenosis. * There is no significant aortic regurgitation. Pulmonic Valve * The pulmonary valve is not well seen, but the Doppler examination is normal without significant regurgitation or stenosis. Great Vessels * The aortic root and proximal ascending aorta are normal sized. Pericardium/Pleural * There is no pericardial effusion. Great Vessels * Dilated inferior vena cava with reduced collapsability with sniff indicates an elevated right atrial pressure of 15 mmHg Left Ventricular Diastolic Function * Diastolic dysfunction is present based on left atrial enlargement. MMode 2D Measurements and Calculations IVSd 0.89 cm LVIDd 4.7 cm LVIDs 3.1 cm LVPWd 1.0 cm IVS/LVPW 0.86 FS 33.5 % EDV(Teich) 103.5 ml ESV(Teich) 39.1 ml EF(Teich) 62.2 % EDV(cubed) 105.3 ml ESV(cubed) 30.9 ml EF(cubed) 70.6 % LV mass(C)d 157.6 grams LV mass(C)dI 72.5 grams/m\S\2 SV(Teich) 64.4 ml SI(Teich) 29.6 ml/m\S\2 SV(cubed) 74.4 ml SI(cubed) 34.2 ml/m\S\2 Ao root diam 2.9 cm Ao root area 6.6 cm\S\2 ACS 1.5 cm asc Aorta Diam 3.8 cm LVOT diam 2.0 cm LVOT area 3.2 cm\S\2 LVAd ap4 34.8 cm\S\2 LVLd ap4 7.3 cm EDV(MOD-sp4) 136.5 ml EDV(sp4-el) 140.9 ml LVAs ap4 18.5 cm\S\2 LVLs ap4 5.9 cm ESV(MOD-sp4) 47.2 ml ESV(sp4-el) 49.4 ml EF(MOD-sp4) 65.4 % EF(sp4-el) 64.9 % LVAd ap2 23.7 cm\S\2 LVLd ap2 6.2 cm EDV(MOD-sp2) 75.5 ml EDV(sp2-el) 77.1 ml LVAs ap2 13.9 cm\S\2 LVLs ap2 5.6 cm ESV(MOD-sp2) 29.0 ml ESV(sp2-el) 29.3 ml EF(MOD-sp2) 61.6 % EF(sp2-el) 62.0 % LVLd %diff -18.55 % EDV(MOD-bp) 106.3 ml LVLs %diff -5.21 % ESV(MOD-bp) 37.9 ml EF(MOD-bp) 64.3 % SV(MOD-sp4) 89.3 ml SI(MOD-sp4) 41.1 ml/m\S\2 SV(MOD-sp2) 46.5 ml SI(MOD-sp2) 21.4 ml/m\S\2 SV(MOD-bp) 68.3 ml SI(MOD-bp) 31.4 ml/m\S\2 SV(sp4-el) 91.5 ml SI(sp4-el) 42.1 ml/m\S\2 SV(sp2-el) 47.8 ml SI(sp2-el) 22.0 ml/m\S\2 Doppler Measurements and Calculations MV E max rosaura 148.1 cm/sec MV dec time 0.22 sec Ao V2 max 135.5 cm/sec Ao max PG 7.3 mmHg Ao max PG (full) 4.0 mmHg GAY(V,A) 2.2 cm\S\2 GAY(V,D) 2.2 cm\S\2 LV V1 max PG 3.4 mmHg LV V1 max 91.8 cm/sec PA V2 max 99.1 cm/sec PA max PG 3.9 mmHg PA acc slope 590.4 cm/sec\S\2 PA acc time 0.10 sec PI max rosaura 171.0 cm/sec PI max PG 11.7 mmHg PI dec slope 211.8 cm/sec\S\2 PI P1/2t 236.6 msec TR max rosaura 288.4 cm/sec PA pr(Accel) 34.6 mmHg
--- NOTE | 2017-10-18 12:29 | Oncology Consultation ---
Oncology/Heme Consultation Date of Consultation: Oct 18, 2017. Attending Physician: Mohsen Abdullahi M.D. Reason for Consultation: Recent diagnosis of small cell lung carcinoma History of Present Illness Mr. Glasgow was seen yesterday in our clinic. He is a 57-year-old gentleman who recently was found to have an diagnosed as having small cell lung carcinoma most likely extensive stage. His history is that he has been in a general decline over the past several months with weight loss of several pounds with associated anorexia and dysphasia. He has had anterior chest wall pain typically on inspiration. He denies fever or chills. He has a history of atrial fibrillation in the past as well as heart failure he states. He also has a history of renal carcinoma with resection of the left kidney in 2013 for a small renal cell neoplasm. Because of this general decline the patient had CT scans revealed a very large mediastinal mass. A PET scan performed on October 09 revealed large bulky mediastinal lymphadenopathy with extension into the left hilar region with central necrosis and mass-effect causing dilatation of the proximal esophagus. In addition there was a 3.9 cm necrotic right upper lobe paratracheal lymph node in a metabolically active 0.4 cm left lower lobe nodule suspicious for disease extension. There is no evidence of metastatic disease in the abdomen or pelvis. Biopsies of this tissue were read at [facility] as showing small cell carcinoma. The patient was seen in our clinic yesterday and because of his comorbid issues and general decline was admitted. Today he is seen at the bedside reading a newspaper and looking fairly comfortable. He reviews with me that he has had marked dysphagia over the past few weeks. He is able to swallow juices at the very most. He does have trouble with clearing mucus secretion Past Medical/Surgical History Medical Problems: (1) Anticoagulants,Lt,Current Use Status: Chronic (2) Atrial fibrillation Status: Chronic (3) Bowel obstruction Status: Acute (4) Congestive Heart Failure Nos Status: Chronic (5) Coronary Atherosclerosis Of [place] Coronary Vessel Status: Chronic (6) Diabetes mellitus type 2 Status: Chronic (7) Hyperlipidemia Status: Chronic (8) Hypertensive disorder, systemic arterial Status: Chronic (9) Hypothyroidism Status: Chronic (10) Obstructive Sleep Apnea (Adult) (Pediatric) Status: Chronic (11) Renal insufficiency Status: Chronic (12) Right lumbar radiculitis Status: Acute (13) Upper abdominal pain Status: Acute Family History No family history noted Social History Smoking Status: Former Smoker Marital Status: single Occupation Status: disabled Allergies Coded Allergies: Penicillins (Verified Allergy, Intermediate, RASH, 07/28/16) PT HAD A RXN AND IT COULD NOT BE RULED OUT IF IT WAS THE PCN Home Medications Scheduled Apixaban (Eliquis), 5 MG PO BID Cholecalciferol (Vitamin D3 Super Strength), 2,000 INTER.UNIT PO DAILY Cyclobenzaprine HCl (Cyclobenzaprine HCl), 10 MG PO HS Diltiazem Hcl Ext Rel (Tiazac), 180 MG PO DAILY Dulaglutide (Trulicity), 0.75 MG INJ WK Fenofibrate (Fenofibrate), 145 MG PO DAILY Ferrous Sulfate (Ferrousul), 325 MG PO DAILY Furosemide (Furosemide), 80 MG PO BID Home O2 Therapy (Oxygen), 2 LITERS NA HS Levothyroxine Sodium (Levothyroxine Sodium), 112 MCG PO Q2D Lisinopril (Lisinopril), 5 MG PO DAILY Magnesium Oxide (Mg Supplement (Magnesium Oxide), 400 MG PO Q2D Metoprolol Succinate (Metoprolol Succinate ER), 100 MG PO DAILY Multiple Vitamin (Multivitamin), 1 TAB PO DAILY Potassium Ext Rel (Klor-Con), 1 DOSE PO BID Pravastatin Sodium (Pravastatin Sodium), 80 MG PO DAILY Scheduled PRN Eszopiclone (Eszopiclone), 1 MG PO HS PRN for Sleep Hydrocodone/Acetaminophen 7.5MG/325MG ([place] 7.5MG/325MG), 1 TAB PO Q4-6HRS PRN for Pain Metolazone (Zaroxolyn), 5 MG PO DAILY PRN for Fluid Retention Oxycodone Ir (Roxicodone Ir), 1-2 TAB PO Q4H PRN for Pain Current Inpatient Medications Current Inpatient Medications Medications (Trade) Dose Ordered Sig/Elizabeth Route Start Time Stop Time Status Last Admin Dose Admin Eszopiclone (Lunesta Tab) 1 mg HS PRN PO 10/17/17 15:30 11/16/17 15:29 Acetaminophen/ Hydrocodone Bitart ([place] 7.5/325 Tab) 1 tab Q6 PRN PO 10/17/17 15:30 10/31/17 15:29 Metolazone (Zaroxolyn Tab) 5 mg DAILY PRN PO 10/17/17 15:30 11/16/17 15:29 Oxycodone HCl (Roxicodone Immediate Rel Tab) 10 mg Q4H PRN PO 10/17/17 15:30 10/31/17 15:29 Magnesium Hydroxide (Milk Of Magnesia Susp) 30 ml Q12H PRN PO 10/17/17 15:45 11/16/17 15:44 Nitroglycerin (Nitrostat Tab) 0.4 mg UD PRN SL 10/17/17 15:45 11/16/17 15:44 Polyethylene (Miralax Powder Packet) 17 gm DAILY PRN PO 10/17/17 15:45 11/16/17 15:44 Glucose (Glucose 40% Gel) 15-30 GRAMS 15 GRAMS... UD PRN PO 10/17/17 15:45 11/16/17 15:44 Glucose (Glucose Chew Tab) 4-8 Tablets 4 Tabl... UD PRN PO 10/17/17 15:45 11/16/17 15:44 Dextrose (Dextrose 50% 50ML Syringe) 25-50ML OF 50% DW IV FOR... UD PRN IV 10/17/17 15:45 11/16/17 15:44 Glucagon (Glucagon Inj) 1 mg UD PRN SQ 10/17/17 15:45 11/16/17 15:44 Apixaban (Eliquis Tab) 5 mg BID PO 10/17/17 21:00 11/16/17 20:59 Morphine Sulfate (MoRPHine SULFATE INJ) 1 mg Q4 PRN IV 10/17/17 17:30 10/31/17 17:29 10/18/17 00:20 1 MG Morphine Sulfate (MoRPHine SULFATE INJ) 2 mg Q4 PRN IV 10/17/17 17:30 10/31/17 17:29 10/18/17 07:04 2 MG Ioversol (Optiray 320) 100 ml UD PRN IV 10/17/17 17:45 10/21/17 17:44 Metoprolol Tartrate (Lopressor Iv) 5 mg Q6H IV. 10/17/17 20:00 11/16/17 19:59 10/18/17 08:33 5 MG Furosemide 40 mg/ Syringe 4 ml @ 4 mls/min BID17 IV 10/18/17 09:00 11/17/17 08:59 10/18/17 08:33 4 MLS/MIN Fentanyl (Duragesic Patch) 12 mcg Q3D@2100 TD 10/17/17 21:00 10/31/17 20:59 10/17/17 22:06 12 MCG Miscellaneous (Fentanyl Patch Remove & Waste) 1 ea Q3D@2059 N/A 10/17/17 20:59 11/16/17 20:58 Miscellaneous Information (Check Fentanyl Patch Placement) 1 ea QS N/A 10/18/17 00:00 11/17/17 00:00 10/18/17 08:00 1 EA Bisacodyl (Dulcolax Supp) 10 mg DAILY PRN [place] 10/17/17 20:30 11/16/17 20:29 Insulin Aspart (novoLOG ASPART) SLIDING SCALE IF C... Q6 SC 10/18/17 06:00 11/17/17 05:59 Albuterol/ Ipratropium (Duoneb) 3 ml QIDR INH 10/18/17 08:00 11/17/17 07:59 10/18/17 11:13 3 ML Levofloxacin 500 mg/Prmx 100 ml @ 100 mls/hr Q24H IV 10/18/17 00:00 10/25/17 00:00 10/18/17 00:20 100 MLS/HR Ondansetron HCl (Zofran Inj) 4 mg Q6H PRN IV 10/18/17 02:15 11/17/17 02:14 Review of Systems Constitutional: Negative for night sweats, or fever Eyes: Negative for event change of vision ENT: Negative for epistaxis, nasal discharge, sore throat, or deafness Cardiovascular: Negative for diaphoresis. He has had some retrosternal chest pain Respiratory: Positive for increasing shortness of breath Gastrointestinal: Negative for diarrhea, hematemesis, melena, nausea, vomiting , or dyspepsia Integumentary (skin): Negative for rash or jaundice discoloration Genitourinary: Negative for urinary frequency, hematuria, or dysuria Neurological: Negative for weakness, seizure activity, headache, or dizziness Lymphatic/Hematologic: Negative for petechiae, bleeding or new adenopathy Musculoskeletal: Negative for new joint or back pain Allergic/Immunologic: Negative for unusual rash or pruritis. Physical Exam Date Time Temp Pulse Resp B/P (MAP) Pulse Ox O2 Delivery O2 Flow Rate FiO2 10/18/17 12:00 Nasal Cannula 2.0 10/18/17 11:33 36.6 90 20 108/72 (84) 93 Nasal Cannula 3.0 10/18/17 11:13 85 18 91 Nasal Cannula 2.0 10/18/17 08:33 83 107/73 10/18/17 08:00 Nasal Cannula 2.0 10/18/17 07:36 78 18 97 Nasal Cannula 2.0 10/18/17 07:34 36.3 76 22 107/73 (84) 97 Nasal Cannula 2.0 10/18/17 04:00 Nasal Cannula 2.0 10/18/17 03:24 36.6 76 19 114/70 (85) 98 Nasal Cannula 2.0 10/17/17 23:59 Nasal Cannula 2.0 10/17/17 23:56 36.5 73 18 98/58 (71) 97 Nasal Cannula 2.0 10/17/17 20:15 77 110/72 10/17/17 20:00 Nasal Cannula 2.0 10/17/17 20:00 36.6 74 24 106/66 (79) 98 Nasal Cannula 2.0 10/17/17 16:00 97 Nasal Cannula 2.0 10/17/17 15:10 36.7 88 22 111/75 (87) 97 Nasal Cannula 3.0 10/17/17 13:45 36.5 100 16 116/74 98 Nasal Cannula 2.0 10/17/17 13:21 36.5 100 18 116/74 (88) 94 Room Air Constitutional: vitals are stable. Voice quality was mildly dysphonic. Eyes: Eyes are DANG EOMI without conjuctival erythema or icterus. ENT: External examination was negative for masses. Neck: Negative for masses or palpable thyromegaly Respiratory: Lung sounds were generally clear but decreased bilaterally Cardiovascular: Heart was RRR without significant murmur, gallops aoe rubs Gastrointestinal: No palpable hepatic or splenomegaly. The abdomen was soft with normal bowel sounds. Lymphatic system: there was no palpable peripheral lymphadenopathy Musculoskeletal System: The musculoskeletal system seemed concordant with age. Skin: The skin was negative for jaundice. Neurologic exam: The exam was negative for any focal findings. Deep tendon reflexes were equal and symmetrical. Psychiatric exam: Was essentially negative with normal mood and effect. Extremities: Mild trace to 1+ bilateral dependent lower extremity edema Laboratory Results Last 24 Hours Test 10/17/17 14:58 10/17/17 15:44 10/17/17 16:07 10/17/17 20:14 White Blood Count 7.46 K/uL Red Blood Count 4.39 M/uL Hemoglobin 12.9 g/dL Hematocrit 39.1 % Mean Corpuscular Volume 89.1 fL Mean Corpuscular Hemoglobin 29.4 pg Mean Corpuscular Hemoglobin Concent 33.0 g/dl Platelet Count 161 K/uL Mean Platelet Volume 10.5 fL Neutrophils (%) (Auto) 79.5 % Lymphocytes (%) (Auto) 9.7 % Monocytes (%) (Auto) 8.3 % Eosinophils (%) (Auto) 2.3 % Basophils (%) (Auto) 0.1 % Neutrophils # (Auto) 5.93 K/uL Lymphocytes # (Auto) 0.72 K/uL Monocytes # (Auto) 0.62 K/uL Eosinophils # (Auto) 0.17 K/uL Basophils # (Auto) 0.01 K/uL RDW Standard Deviation 47.7 fL RDW Coefficient of Variation 14.6 % Immature Granulocyte % (Auto) 0.1 % Immature Granulocyte # (Auto) 0.01 K/uL Sodium Level 136 mmol/L Potassium Level 3.8 mmol/L Chloride Level 97 mmol/L Carbon Dioxide Level 34 mmol/L Anion Gap 5.0 mmol/L Blood Urea Nitrogen 26 mg/dl Creatinine 1.39 mg/dl Est Creatinine Clear Calc Drug Dose 70.3 ml/min Estimated GFR () 65.2 Estimated GFR (Non- 56.3 BUN/Creatinine Ratio 19.0 Random Glucose 116 mg/dl Calcium Level 10.3 mg/dl Prothrombin Time 11.7 SECONDS Prothromb Time International Ratio 1.1 Total Creatine Kinase 42 U/L Creatine Kinase MB 0.7 ng/ml Creatine Kinase MB Ratio 1.7 Troponin I < 0.015 ng/ml Bedside Glucose 112 mg/dl 123 mg/dl Test 10/18/17 00:00 10/18/17 06:03 10/18/17 06:43 10/18/17 07:05 Bedside Glucose 99 mg/dl 99 mg/dl White Blood Count 5.20 K/uL Red Blood Count 4.43 M/uL Hemoglobin 12.7 g/dL Hematocrit 40.5 % Mean Corpuscular Volume 91.4 fL Mean Corpuscular Hemoglobin 28.7 pg Mean Corpuscular Hemoglobin Concent 31.4 g/dl RDW Standard Deviation 50.4 fL RDW Coefficient of Variation 15.0 % Platelet Count 148 K/uL Mean Platelet Volume 10.3 fL Sodium Level 135 mmol/L Potassium Level 3.9 mmol/L Chloride Level 96 mmol/L Carbon Dioxide Level 31 mmol/L Anion Gap 8.0 mmol/L Blood Urea Nitrogen 27 mg/dl Creatinine 1.39 mg/dl Est Creatinine Clear Calc Drug Dose 69.9 ml/min Estimated GFR () 65.2 Estimated GFR (Non- 56.3 BUN/Creatinine Ratio 19.5 Random Glucose 102 mg/dl Estimated Average Glucose 134 mg/dl Hemoglobin A1c 6.3 % Calcium Level 9.7 mg/dl Magnesium Level 2.0 mg/dl Triglycerides Level 210 mg/dl Cholesterol Level 123 mg/dl HDL Cholesterol 48 mg/dl LDL Cholesterol, Calculated 33 mg/dl VLDL Cholesterol, Calculated 42 mg/dl Cholesterol/HDL Ratio 2.6 Urine Color DK YELLOW Urine Appearance CLEAR Urine pH 5.0 Urine Specific [place] > 1.045 Urine Protein NEG Urine Glucose (UA) NEG Urine Ketones NEG Urine Occult Blood NEG Urine Nitrite NEG Urine Bilirubin NEG Urine Urobilinogen NEG Urine Leukocyte Esterase NEG Test 10/18/17 11:58 Bedside Glucose 98 mg/dl Assessment & Plan Recent diagnosis of small cell lung carcinoma probable extensions extensive stage by PET CT scan. He is obviously having major problems locally with dysphasia. I suspect the chest pain that he has is secondary to this large bulky mediastinal mass. His tumor is treatment julian. I would expected this neoplasm to respond to chemotherapy and radiation. He is able to swallow some liquids. One approach that could be started would be the initiation of chemotherapy plus radiation therapy to this mass. He will need support nutritionally for the next 2-3 weeks. Predictably this tumor should respond at the rate of 70-80%. Hopefully then this dysphagia would be relieved. I introduced this idea to him receiving nutrition perhaps parenterally for the next 2-3 weeks as we begin our therapy. I introduced to him the possibility of receiving chemotherapy namely carboplatinum plus [employer]-16. I reviewed this is a 3 day IV treatment usually given as an outpatient every 3-4 weeks with the major potential side effects of nausea risk of hair loss risk of fever infection bleeding and paresthesias. I stated that this tumor is not curable. I stated though that this tumor should respond to her therapy so that he can swallow once again. I did also review this with Dr. Abdullahi. We reviewed the possibility of placing a double-lumen PICC line in preparation for the above. I will be in touch with radiation therapy. We can perhaps even begin the chemotherapy this weekend in anticipation of the addition of radiation therapy to this mediastinal mass early next week.
--- NOTE | 2017-10-18 15:20 | Progress Note ---
Medicine Progress Note Date & Time of Visit: Oct 18, 2017 at 15:20 . Subjective Occasional cough. No dyspnea. No fever. Left parasternal chest pain. Ongoing dysphagia; unable to swallow oral medications. No diarrhea. . Objective Last 8 Hrs Date Time Temp Pulse Resp B/P (MAP) Pulse Ox O2 Delivery O2 Flow Rate FiO2 10/18/17 15:06 83 108/72 10/18/17 14:32 96 18 98 Nasal Cannula 3.0 10/18/17 12:00 Nasal Cannula 2.0 10/18/17 11:33 36.6 90 20 108/72 (84) 93 Nasal Cannula 3.0 10/18/17 11:13 85 18 91 Nasal Cannula 2.0 10/18/17 08:33 83 107/73 10/18/17 08:00 Nasal Cannula 2.0 10/18/17 07:36 78 18 97 Nasal Cannula 2.0 10/18/17 07:34 36.3 76 22 107/73 (84) 97 Nasal Cannula 2.0 Physical Exam: General- no acute distress Eyes- anicteric Neck- no JVD Lungs- diffuse wheezing, few scattered rhonchi Heart- irregular; no murmur or gallop appreciated Abdomen- + BS, soft, nontender Extremities- trace pretibial edema; no calf tenderness Neuro- alert . Laboratory Results: Last 24 Hours Test 10/17/17 15:44 10/17/17 16:07 10/17/17 20:14 10/18/17 00:00 Prothrombin Time 11.7 SECONDS Prothromb Time International Ratio 1.1 Total Creatine Kinase 42 U/L Creatine Kinase MB 0.7 ng/ml Creatine Kinase MB Ratio 1.7 Troponin I < 0.015 ng/ml Bedside Glucose 112 mg/dl 123 mg/dl 99 mg/dl Test 10/18/17 06:03 10/18/17 06:43 10/18/17 07:05 10/18/17 11:58 Bedside Glucose 99 mg/dl 98 mg/dl White Blood Count 5.20 K/uL Red Blood Count 4.43 M/uL Hemoglobin 12.7 g/dL Hematocrit 40.5 % Mean Corpuscular Volume 91.4 fL Mean Corpuscular Hemoglobin 28.7 pg Mean Corpuscular Hemoglobin Concent 31.4 g/dl RDW Standard Deviation 50.4 fL RDW Coefficient of Variation 15.0 % Platelet Count 148 K/uL Mean Platelet Volume 10.3 fL Sodium Level 135 mmol/L Potassium Level 3.9 mmol/L Chloride Level 96 mmol/L Carbon Dioxide Level 31 mmol/L Anion Gap 8.0 mmol/L Blood Urea Nitrogen 27 mg/dl Creatinine 1.39 mg/dl Est Creatinine Clear Calc Drug Dose 69.9 ml/min Estimated GFR () 65.2 Estimated GFR (Non- 56.3 BUN/Creatinine Ratio 19.5 Random Glucose 102 mg/dl Estimated Average Glucose 134 mg/dl Hemoglobin A1c 6.3 % Calcium Level 9.7 mg/dl Magnesium Level 2.0 mg/dl Triglycerides Level 210 mg/dl Cholesterol Level 123 mg/dl HDL Cholesterol 48 mg/dl LDL Cholesterol, Calculated 33 mg/dl VLDL Cholesterol, Calculated 42 mg/dl Cholesterol/HDL Ratio 2.6 Urine Color DK YELLOW Urine Appearance CLEAR Urine pH 5.0 Urine Specific [place] > 1.045 Urine Protein NEG Urine Glucose (UA) NEG Urine Ketones NEG Urine Occult Blood NEG Urine Nitrite NEG Urine Bilirubin NEG Urine Urobilinogen NEG Urine Leukocyte Esterase NEG Test 10/18/17 12:42 Lactate Dehydrogenase 298 U/L Assessment & Plan DYSPHAGIA Severe dysphagia to solids, liquids, meds due to extrinsic compression from mediastinal mass. NPO. Case discussed with GI and Medical Oncology. Esophageal stent placement would be challenging and could lead to complications. Medical Oncology suggests short-term nutritional support with TPN pending anticipated response to chemoradiation. PICC line ordered for administration of TPN. Keep head elevated at all times. SMALL CELL CARCINOMA OF LUNG Imaging by CT and PET scans demonstrated large mediastinal lymphadenopathy with extension into the left hilar region and extrinsic compression on the proximal esophagus. Biopsy demonstrated small cell carcinoma. Management per Medical Oncology and Radiation Oncology. COUGH Probably aspirating, but no evidence of pneumonia (afebrile, no infiltrates on chest imaging). Discontinue levofloxacin. NPO. Aspiration precautions. Keep head of bed elevated to minimize risk of aspiration. CORONARY ARTERY DISEASE Chest pain probably due to malignancy. Troponin normal. Hold aspirin because of GI symptoms. Continue metoprolol. ATRIAL FIBRILLATION (CHRONIC) Rate controlled on metoprolol; converted to parenteral metoprolol due to severe dysphagia. Usually anticoagulated with a apixaban; change to SQ enoxaparin (will wait until PICC or Hooper placement before starting full dose). HYPERTENSION Continue metoprolol as noted above. CHRONIC HYPOXIC RESPIRATORY FAILURE Continue oxygen. SLEEP APNEA Does not tolerate CPAP. DM TYPE 2 Expect fluctuating blood sugars due to acute illness, NPO status, anticipated TPN. Lantus / NovoLog per protocol. VTE PROPHYLAXIS Unable to swallow apixaban. Transition to SQ enoxaparin (prophylactic dosing until line placed for TPN, then therapeutic dosing). DISPOSITION To be determined. Primary care follow-up with Dr. James. . Current Inpatient Medications: Current Inpatient Medications Medications (Trade) Dose Ordered Sig/Elizabeth Route Start Time Stop Time Status Last Admin Dose Admin Eszopiclone (Lunesta Tab) 1 mg HS PRN PO 10/17/17 15:30 11/16/17 15:29 Acetaminophen/ Hydrocodone Bitart ([place] 7.5/325 Tab) 1 tab Q6 PRN PO 10/17/17 15:30 10/31/17 15:29 Metolazone (Zaroxolyn Tab) 5 mg DAILY PRN PO 10/17/17 15:30 11/16/17 15:29 Oxycodone HCl (Roxicodone Immediate Rel Tab) 10 mg Q4H PRN PO 10/17/17 15:30 10/31/17 15:29 Magnesium Hydroxide (Milk Of Magnesia Susp) 30 ml Q12H PRN PO 10/17/17 15:45 11/16/17 15:44 Nitroglycerin (Nitrostat Tab) 0.4 mg UD PRN SL 10/17/17 15:45 11/16/17 15:44 Polyethylene (Miralax Powder Packet) 17 gm DAILY PRN PO 10/17/17 15:45 11/16/17 15:44 Glucose (Glucose 40% Gel) 15-30 GRAMS 15 GRAMS... UD PRN PO 10/17/17 15:45 11/16/17 15:44 Glucose (Glucose Chew Tab) 4-8 Tablets 4 Tabl... UD PRN PO 10/17/17 15:45 11/16/17 15:44 Dextrose (Dextrose 50% 50ML Syringe) 25-50ML OF 50% DW IV FOR... UD PRN IV 10/17/17 15:45 11/16/17 15:44 Glucagon (Glucagon Inj) 1 mg UD PRN SQ 10/17/17 15:45 11/16/17 15:44 Apixaban (Eliquis Tab) 5 mg BID PO 10/17/17 21:00 11/16/17 20:59 Morphine Sulfate (MoRPHine SULFATE INJ) 1 mg Q4 PRN IV 10/17/17 17:30 10/31/17 17:29 10/18/17 00:20 1 MG Morphine Sulfate (MoRPHine SULFATE INJ) 2 mg Q4 PRN IV 10/17/17 17:30 10/31/17 17:29 10/18/17 12:51 2 MG Ioversol (Optiray 320) 100 ml UD PRN IV 10/17/17 17:45 10/21/17 17:44 Metoprolol Tartrate (Lopressor Iv) 5 mg Q6H IV. 10/17/17 20:00 11/16/17 19:59 10/18/17 15:06 5 MG Furosemide 40 mg/ Syringe 4 ml @ 4 mls/min BID17 IV 10/18/17 09:00 11/17/17 08:59 10/18/17 08:33 4 MLS/MIN Fentanyl (Duragesic Patch) 12 mcg Q3D@2100 TD 10/17/17 21:00 10/31/17 20:59 10/17/17 22:06 12 MCG Miscellaneous (Fentanyl Patch Remove & Waste) 1 ea Q3D@2059 N/A 10/17/17 20:59 11/16/17 20:58 Miscellaneous Information (Check Fentanyl Patch Placement) 1 ea QS N/A 10/18/17 00:00 11/17/17 00:00 10/18/17 15:06 1 EA Bisacodyl (Dulcolax Supp) 10 mg DAILY PRN [place] 10/17/17 20:30 11/16/17 20:29 Insulin Aspart (novoLOG ASPART) SLIDING SCALE IF C... Q6 SC 10/18/17 06:00 11/17/17 05:59 Albuterol/ Ipratropium (Duoneb) 3 ml QIDR INH 10/18/17 08:00 11/17/17 07:59 10/18/17 14:31 3 ML Levofloxacin 500 mg/Prmx 100 ml @ 100 mls/hr Q24H IV 10/18/17 00:00 10/25/17 00:00 10/18/17 00:20 100 MLS/HR Ondansetron HCl (Zofran Inj) 4 mg Q6H PRN IV 10/18/17 02:15 11/17/17 02:14
[2017-10-18] MEDS ORDERED: ENOXAPARIN 40 MG/0.4 ML SYR SQ ONE (15:30)
[2017-10-18] MEDS ORDERED: POTASSIUM CHLORIDE INJ 20 MEQ in D5W AND NSS 1,000 ML IV SCH (16:45)
[2017-10-18] MEDS: D5NSS + 20MEQ KCL 1,000 ML IV SCH (17:42)
[2017-10-19] VITALS (18 sets, daily range): BP systolic 95–118; BP diastolic 64–79; PULSE 95–138; TEMP 36.2–37.2; O2SAT 90–97
[2017-10-19] MEDS: D5NSS + 20MEQ KCL 1,000 ML IV SCH ×2 (01:49→08:06)
[2017-10-19] MEDS: METOPROLOL TARTRATE 1 MG/ML VIAL IV. SCH ×4 (01:49→20:00)
[2017-10-19] MEDS: MoRPHine SULFATE 2 MG/ML CARP IV PRN ×4 (01:51→13:57)
[2017-10-19] MEDS: INSULIN ASPART 100 UNITS/ML 3 ML PEN SC SCH ×3 (06:00→18:52)
[2017-10-19] MEDS ORDERED: LEVOTHYROXINE 112 MCG TAB PO SCH (06:00)
[2017-10-19] MEDS: ALBUT/IPRATROP 3MG/0.5MG NEB 3 ML VIAL INH SCH ×4 (07:06→19:09)
[2017-10-19 07:22] LABS: BUN/CREATININE RATIO 19.3 (10-20); CALCIUM 9.2 mg/dl (8.5-10.1); CREATININE 1.35 mg/dl (0.60-1.40); MAGNESIUM 1.9 mg/dl (1.8-2.4); POTASSIUM 4.1 mmol/L (3.5-5.1)
[2017-10-19 07:25] LABS: ALB/GLOB RATIO 0.7 (0.9-2); PHOSPHORUS 3.9 mg/dl (2.5-4.9)
[2017-10-19] MEDS: CHECK FENTANYL PATCH PLACEMENT SCH ×2 (08:06→16:02)
--- NOTE | 2017-10-19 08:42 | DIAGNOSTIC IMAGING REPORT ---
CHEST ONE VIEW PORTABLE CLINICAL HISTORY: PICC PLACEMENT TO LEFT ARM tube position COMPARISON STUDY: 10/17/2017 FINDINGS: Unchanging mediastinal prominence. Mild increase in pulmonary vascular congestion. Small bilateral pleural effusions slightly increased in volume. PICC catheter is in the superior vena cava. No evidence pneumothorax. IMPRESSION: PICC catheter in superior vena cava. No evidence pneumothorax. Developing congestive failure The above report was generated using voice recognition software. It may contain grammatical, syntax or spelling errors. Electronically signed by: Luis Felipe Yang M.D. 10/19/2017 8:41 AM Dictated Date/Time: 10/19/2017 8:39 AM
[2017-10-19] MEDS ORDERED: MAGNESIUM OXIDE 400 MG TAB PO SCH (09:00)
[2017-10-19] MEDS ORDERED: FUROSEMIDE INJ 40 MG in SYRINGE 0 ML IV ONE ×2 (09:30→19:00)
[2017-10-19] MEDS ORDERED: TPN/PPN CONSULT PHARMACY SCH (10:15)
--- NOTE | 2017-10-19 10:34 | Progress Note ---
Medicine Progress Note Date & Time of Visit: Oct 19, 2017 at 10:33 . Subjective Experiencing left ankle pain and left calf tenderness. No fever. Has some sinus drainage and occasional cough productive of green sputum. Ongoing left parasternal chest pain, relieved by morphine. No nausea, vomiting, diarrhea. . Objective Last 8 Hrs Date Time Temp Pulse Resp B/P (MAP) Pulse Ox O2 Delivery O2 Flow Rate FiO2 10/19/17 08:06 102 108/66 10/19/17 08:00 Room Air 10/19/17 07:29 37.2 102 18 108/66 (80) 97 Nasal Cannula 2.0 10/19/17 07:06 95 16 96 Nasal Cannula 2.0 10/19/17 04:10 36.6 101 17 107/72 (84) 91 Nasal Cannula 2.0 10/19/17 04:00 Nasal Cannula 2.0 Physical Exam: General- sitting in chair, no acute distress Eyes- anicteric Neck- no JVD Lungs- diffuse mild wheezing, few scattered rhonchi Heart- irregular; no murmur or gallop appreciated Abdomen- + BS, soft, nontender Extremities- trace pretibial edema; left calf tenderness; erythema and tenderness left medial ankle Neuro- alert . Laboratory Results: Last 24 Hours Test 10/18/17 11:58 10/18/17 12:42 10/18/17 17:40 10/18/17 23:21 Bedside Glucose 98 mg/dl 81 mg/dl 128 mg/dl Lactate Dehydrogenase 298 U/L Test 10/19/17 00:00 10/19/17 06:12 10/19/17 06:31 Bedside Glucose 134 mg/dl Sodium Level 140 mmol/L Potassium Level 4.1 mmol/L Chloride Level 101 mmol/L Carbon Dioxide Level 34 mmol/L Anion Gap 5.0 mmol/L Blood Urea Nitrogen 26 mg/dl Creatinine 1.35 mg/dl Est Creatinine Clear Calc Drug Dose 72.3 ml/min Estimated GFR () 67.5 Estimated GFR (Non- 58.3 BUN/Creatinine Ratio 19.3 Random Glucose 138 mg/dl Calcium Level 9.2 mg/dl Phosphorus Level 3.9 mg/dl Magnesium Level 1.9 mg/dl Total Bilirubin 0.5 mg/dl Aspartate Amino Transf (AST/SGOT) 40 U/L Alanine Aminotransferase (ALT/SGPT) 20 U/L Alkaline Phosphatase 61 U/L Total Protein 6.8 gm/dl Albumin 2.7 gm/dl Globulin 4.1 gm/dl Albumin/Globulin Ratio 0.7 Date/Time Source Procedure Growth Status 10/19/17 10:30 Sputum Expectorated Sputum Gram Stain Pending Ordered 10/19/17 10:30 Sputum Expectorated Sputum Sputum Culture Pending Ordered Assessment & Plan DYSPHAGIA Severe dysphagia to solids, liquids, meds due to extrinsic compression from mediastinal mass. NPO. Case discussed with GI and Medical Oncology. Esophageal stent placement would be challenging and could lead to complications. Medical Oncology suggests short-term nutritional support with TPN pending anticipated response to chemoradiation. Keep head elevated at all times. SMALL CELL CARCINOMA OF LUNG Imaging by CT and PET scans demonstrated large mediastinal lymphadenopathy with extension into the left hilar region and extrinsic compression on the proximal esophagus. Biopsy demonstrated small cell carcinoma. Management per Medical Oncology and Radiation Oncology. Chemotherapy starting today. COUGH Cough productive of green sputum. No fever. Probably aspirating, but no evidence of pneumonia (afebrile, no infiltrates on chest imaging). May have sinusitis or bronchitis. May be prudent to resume antibiotic therapy in light of chemotherapy. Allergic to penicillin. Resume levofloxacin. NPO. Aspiration precautions. Keep head of bed elevated to minimize risk of aspiration. CORONARY ARTERY DISEASE Chest pain probably due to malignancy. Troponin normal. Hold aspirin because of GI symptoms. Continue metoprolol. ATRIAL FIBRILLATION (CHRONIC) Rate controlled on metoprolol; converted to parenteral metoprolol due to severe dysphagia. Usually anticoagulated with a apixaban; change to SQ enoxaparin. CHF Acute on chronic left ventricular diastolic heart failure. Continue diuretics. HYPERTENSION Continue metoprolol as noted above. CHRONIC HYPOXIC RESPIRATORY FAILURE Continue oxygen. SLEEP APNEA Does not tolerate CPAP. DM TYPE 2 Expect fluctuating blood sugars due to acute illness, NPO status, anticipated TPN, steroids. Lantus / NovoLog per protocol. FBS this morning = 134. LEFT CALF PAIN Venous duplex negative for DVT. LEFT ANKLE PAIN Suspect gout flare. Uric acid this morning 14.9. Cannot take colchicine due to NPO status (may be potential issue with chemo as well). Cannot take NSAID's. Best option = steroids. IV methylprednisolone ordered. VTE PROPHYLAXIS Unable to swallow apixaban. Transitioned to SQ enoxaparin. DISPOSITION To be determined. Primary care follow-up with Dr. James. Patient being transferred to for chemotherapy. Intermittent tachycardia, but otherwise stable on IV metoprolol. . Current Inpatient Medications: Current Inpatient Medications Medications (Trade) Dose Ordered Sig/Elizabeth Route Start Time Stop Time Status Last Admin Dose Admin Acetaminophen/ Hydrocodone Bitart ([place] 7.5/325 Tab) 1 tab Q6 PRN PO 10/17/17 15:30 10/31/17 15:29 Nitroglycerin (Nitrostat Tab) 0.4 mg UD PRN SL 10/17/17 15:45 11/16/17 15:44 Glucose (Glucose 40% Gel) 15-30 GRAMS 15 GRAMS... UD PRN PO 10/17/17 15:45 11/16/17 15:44 Glucose (Glucose Chew Tab) 4-8 Tablets 4 Tabl... UD PRN PO 10/17/17 15:45 11/16/17 15:44 Dextrose (Dextrose 50% 50ML Syringe) 25-50ML OF 50% DW IV FOR... UD PRN IV 10/17/17 15:45 11/16/17 15:44 Glucagon (Glucagon Inj) 1 mg UD PRN SQ 10/17/17 15:45 11/16/17 15:44 Morphine Sulfate (MoRPHine SULFATE INJ) 1 mg Q4 PRN IV 10/17/17 17:30 10/31/17 17:29 10/19/17 05:08 1 MG Morphine Sulfate (MoRPHine SULFATE INJ) 2 mg Q4 PRN IV 10/17/17 17:30 10/31/17 17:29 10/19/17 01:51 2 MG Ioversol (Optiray 320) 100 ml UD PRN IV 10/17/17 17:45 10/21/17 17:44 Metoprolol Tartrate (Lopressor Iv) 5 mg Q6H IV. 10/17/17 20:00 11/16/17 19:59 10/19/17 08:06 5 MG Fentanyl (Duragesic Patch) 12 mcg Q3D@2100 TD 10/17/17 21:00 10/31/17 20:59 10/17/17 22:06 12 MCG Miscellaneous (Fentanyl Patch Remove & Waste) 1 ea Q3D@2058 N/A 10/17/17 20:59 11/16/17 20:58 Miscellaneous Information (Check Fentanyl Patch Placement) 1 ea QS N/A 10/18/17 00:00 11/17/17 00:00 10/19/17 08:06 1 EA Bisacodyl (Dulcolax Supp) [address] 10/17/17 20:30 11/16/17 20:29 Insulin Aspart (novoLOG ASPART) SLIDING SCALE IF C... Q6 SC 10/18/17 06:00 11/17/17 05:59 Albuterol/ Ipratropium (Duoneb) 3 ml QIDR INH 10/18/17 08:00 11/17/17 07:59 10/19/17 07:06 3 ML Ondansetron HCl (Zofran Inj) 4 mg Q6H PRN IV 10/18/17 02:15 11/17/17 02:14 Miscellaneous Information (Pharmacy Tpn/ Ppn Consult Active) 1 ea NOW N/A 10/19/17 10:15 11/18/17 10:14 UNV Miscellaneous Information (Pharmacy Tpn/ Ppn Consult Active) 1 ea DAILY N/A 10/20/17 09:00 11/19/17 08:59 UNV
--- NOTE | 2017-10-19 10:45 | Hematology/Oncology Prog Note ---
Hematology/Onc Progress Note Date of Service Oct 19, 2017. Diagnoses Small cell lung carcinoma probable extensive stage with massive mediastinal involvement Medications Medications Administered Medications (Trade) Dose Ordered Sig/Elizabeth Route Start Time Stop Time Status Last Admin Dose Admin Furosemide (Lasix Tab) 80 mg BID17 PO 10/17/17 17:00 10/17/17 18:30 DC 10/17/17 16:26 80 MG Morphine Sulfate (MoRPHine SULFATE INJ) 1 mg Q4 PRN IV 10/17/17 17:30 10/31/17 17:29 10/19/17 05:08 1 MG Morphine Sulfate (MoRPHine SULFATE INJ) 2 mg Q4 PRN IV 10/17/17 17:30 10/31/17 17:29 10/19/17 01:51 2 MG Metoprolol Tartrate (Lopressor Iv) 5 mg Q6H IV. 10/17/17 20:00 11/16/17 19:59 10/19/17 08:06 5 MG Furosemide 40 mg/ Syringe 4 ml @ 4 mls/min BID17 IV 10/18/17 09:00 10/18/17 15:24 DC 10/18/17 08:33 4 MLS/MIN Fentanyl (Duragesic Patch) 12 mcg Q3D@2100 TD 10/17/17 21:00 10/31/17 20:59 10/17/17 22:06 12 MCG Miscellaneous Information (Check Fentanyl Patch Placement) 1 ea QS N/A 10/18/17 00:00 11/17/17 00:00 10/19/17 08:06 1 EA Albuterol/ Ipratropium (Duoneb) 3 ml QIDR INH 10/18/17 08:00 11/17/17 07:59 10/19/17 07:06 3 ML Levofloxacin 500 mg/Prmx 100 ml @ 100 mls/hr Q24H IV 10/18/17 00:00 10/18/17 15:24 DC 10/18/17 00:20 100 MLS/HR Ondansetron HCl (Zofran Inj) 4 mg STK-MED ONCE .ROUTE 10/18/17 01:33 10/18/17 01:34 DC 10/18/17 01:42 4 MG Enoxaparin Sodium (Lovenox Inj) 40 mg NOW ONCE SQ 10/18/17 15:30 10/18/17 16:22 DC 10/18/17 17:43 40 MG Potassium Chloride/Dextrose/ Sod Cl 1,000 ml @ 125 mls/hr Q8H IV 10/18/17 17:00 10/19/17 10:31 DC 10/19/17 08:06 125 MLS/HR Furosemide 40 mg/ Syringe 4 ml @ 4 mls/min NOW ONCE IV 10/19/17 09:30 10/19/17 09:31 DC 10/19/17 09:57 4 MLS/MIN Subjective A PICC line has been placed. Echocardiogram is acceptable. Today I reviewed with him chemotherapy and I believe you are ready to begin. CT scans of been reviewed with radiology. Review of Systems: Constitutional: Negative for night sweats, or fever Eyes: Negative for event change of vision ENT: Negative for epistaxis, nasal discharge, sore throat, or deafness Cardiovascular: Negative for chest pain, palpitations, dizziness, diaphoresis Respiratory: Negative for new shortness of breath,hemoptysis, or purulent cough Gastrointestinal: Negative for diarrhea, hematemesis, melena, nausea, vomiting , or dyspepsia. Marked dysphagia as before Integumentary (skin): Negative for rash or jaundice discoloration Genitourinary: Negative for urinary frequency, hematuria, or dysuria Neurological: Negative for weakness, seizure activity, headache, or dizziness Lymphatic/Hematologic: Negative for petechiae, bleeding or new adenopathy Musculoskeletal: Negative for new joint or back pain Allergic/Immunologic: Negative for unusual rash or pruritis. Vital Signs Vital Signs Past 12 Hours Date Time Temp Pulse Resp B/P (MAP) Pulse Ox O2 Delivery O2 Flow Rate FiO2 10/19/17 08:06 102 108/66 10/19/17 08:00 Room Air 10/19/17 07:29 37.2 102 18 108/66 (80) 97 Nasal Cannula 2.0 10/19/17 07:06 95 16 96 Nasal Cannula 2.0 10/19/17 04:10 36.6 101 17 107/72 (84) 91 Nasal Cannula 2.0 10/19/17 04:00 Nasal Cannula 2.0 10/19/17 01:49 118 109/71 10/18/17 23:59 Nasal Cannula 2.0 10/18/17 23:54 36.6 119 18 106/72 (83) 97 Nasal Cannula 2.0 Physical Exam Constitutional: vitals are stable. Eyes: Eyes are DANG EOMI without conjuctival erythema or icterus. ENT: External examination was negative for masses. Neck: Negative for masses or palpable thyromegaly Respiratory: Lung sounds were generally clear bilaterally Cardiovascular: Heart was IRRR without significant murmur, gallops aoe rubs Gastrointestinal: No palpable hepatic or splenomegaly. The abdomen was soft with normal bowel sounds. Lymphatic system: there was no palpable peripheral lymphadenopathy Musculoskeletal System: The musculoskeletal system seemed concordant with age. Skin: The skin was negative for jaundice. Neurologic exam: The exam was negative for any focal findings. Deep tendon reflexes were equal and symmetrical. Psychiatric exam: Was essentially negative with normal mood and effect. Extremities: mild dependent edema as before Laboratory Last 24 Hours Test 10/18/17 11:58 10/18/17 12:42 10/18/17 17:40 10/18/17 23:21 Bedside Glucose 98 mg/dl 81 mg/dl 128 mg/dl Lactate Dehydrogenase 298 U/L Test 10/19/17 00:00 10/19/17 06:12 10/19/17 06:31 Bedside Glucose 134 mg/dl Sodium Level 140 mmol/L Potassium Level 4.1 mmol/L Chloride Level 101 mmol/L Carbon Dioxide Level 34 mmol/L Anion Gap 5.0 mmol/L Blood Urea Nitrogen 26 mg/dl Creatinine 1.35 mg/dl Est Creatinine Clear Calc Drug Dose 72.3 ml/min Estimated GFR () 67.5 Estimated GFR (Non- 58.3 BUN/Creatinine Ratio 19.3 Random Glucose 138 mg/dl Calcium Level 9.2 mg/dl Phosphorus Level 3.9 mg/dl Magnesium Level 1.9 mg/dl Total Bilirubin 0.5 mg/dl Aspartate Amino Transf (AST/SGOT) 40 U/L Alanine Aminotransferase (ALT/SGPT) 20 U/L Alkaline Phosphatase 61 U/L Total Protein 6.8 gm/dl Albumin 2.7 gm/dl Globulin 4.1 gm/dl Albumin/Globulin Ratio 0.7 Assessment & Plan Small cell lung carcinoma with massive mediastinal mass. I believe we are ready now to begin therapy. I spoke with the patient today about carboplatinum and etoposide. I chose carboplatinum (instead of cisplatin ) to try to limit the amount of fluid that he might get. He does have a history of congestive heart failure. In addition he is status post resection of one kidney due to a prior history of renal cell carcinoma. I reviewed the regimen as carboplatinum and etoposide given IV every 3 weeks times at least 4 sessions. Carboplatinum and etoposide is given on day 1 with etoposide given as a single agent day 2 and day 3. Again a PICC line is in place. I reviewed the major potential side effects of nausea vomiting, hair loss, risk of fever, infection, bleeding, and paresthesias. I stated that this tumor is not curable and the hopes are that it will respond to therapy so that he can breathe and swallow better. Scans reviewed with radiology and although is difficult to be certain there may be disease in both lungs. I also reviewed over the phone the situation with radiation therapy. I would like to intervene also with radiation therapy to this large mediastinal mass early in the upcoming week. Again this was reviewed with the patient. Consent forms were signed Orders are written for the chemotherapy and hopefully will be able to begin later today. This was reviewed also with . TPN will be coordinated with Dr. Abdullahi help
--- NOTE | 2017-10-19 11:03 | DIAGNOSTIC IMAGING REPORT ---
ULTRASOUND LEFT LOWER EXTREMITY VENOUS CLINICAL HISTORY: Calf pain. COMPARISON STUDY: No priors. TECHNIQUE: Real-time, grayscale, and color Doppler sonography of the deep veins of the left lower extremity was performed from the inguinal crease to the calf. Compression and augmentation were utilized. FINDINGS: There is no sonographic evidence of deep venous thrombosis identified in the left lower extremity. The common femoral, superficial femoral, and popliteal veins are patent and normally compressible. The greater saphenous vein and the profunda femoris vein at the junction with the common femoral vein are clear. The visualized calf veins are patent. Atherosclerotic calcification is noted in the femoral artery. IMPRESSION: There is no sonographic evidence of deep venous thrombosis identified in the left lower extremity. Electronically signed by: Norris Bell M.D. 10/19/2017 11:02 AM Dictated Date/Time: 10/19/2017 11:01 AM
[2017-10-19] MEDS: LEVOFLOXACIN / D5W 750 MG in PREMIXED IN D5W 150 ML IV SCH (11:42)
[2017-10-19] MEDS ORDERED: METHYLPREDNISOLONE IV 40 MG in SYRINGE 0 ML IV ONE (11:45)
[2017-10-19] MEDS ORDERED: DEXTROSE 10% 1,000 ML IV PRN (11:50)
[2017-10-19] MEDS ORDERED: MoRPHine SULFATE 2 MG/ML CARP IV PRN (13:30)
[2017-10-19 14:53] LABS: BASO % 0.2 %; BASO ABS # 0.01 K/uL (0-0.2); EOS % 0.4 %; HEMATOCRIT 39.5 % (42-52); LYMPH % 6.7 %; LYMPH ABS # 0.34 K/uL (1.2-3.4); MEAN CELL VOLUME 92.3 fL (80-100); MEAN PLATELET VOLUME 10.5 fL (7.4-10.4); MONO % 2.4 %; NEUT % 90.3 %; PLATELET COUNT 156 K/uL (130-400); RED BLOOD COUNT 4.28 M/uL (4.7-6.1); WHITE BLOOD COUNT 5.05 K/uL (4.8-10.8)
[2017-10-19 15:42] LABS: COMPLETE YES; MEAN CORPUSCULAR HGB CONC 31.4 g/dl (32-36)
[2017-10-19] MEDS ORDERED: CUSTOM CENTRAL PN 1 BAG IV SCH (16:00)
[2017-10-19] MEDS: ONDANSETRON INJ 2 MG/ML 2 ML VIAL IV PRN ×2 (17:19→17:20)
[2017-10-19] MEDS ORDERED: FOSAPREPITANT DIMEGLUMINE INJ 150 MG in SODIUM CHLORIDE 0.9% 150ML 145 ML IV SCH (18:00)
[2017-10-19] MEDS ORDERED: DEXAMETHASONE IV SCH (18:00)
[2017-10-19] MEDS ORDERED: SODIUM CHLORIDE 0.9% IV SCH ×3 (18:00→19:00)
[2017-10-19] MEDS ORDERED: ONDANSETRON IV SCH (18:00)
[2017-10-19] MEDS ORDERED: CARBOPLATIN IV SCH (18:30)
[2017-10-19] MEDS ORDERED: ETOPOSIDE IV SCH (19:00)
[2017-10-19] MEDS ORDERED: NURSING VERBAL MED ORDER ONE (21:00)
[2017-10-19] MEDS ORDERED: ENOXAPARIN 100 MG/1ML SYR SQ SCH (21:00)
[2017-10-19] MEDS ORDERED: DIGOXIN IV 250 MCG in SYRINGE 9 ML IV SCH (21:15)
[2017-10-20] VITALS (14 sets, daily range): BP systolic 100–134; BP diastolic 66–78; PULSE 78–115; TEMP 36.2–36.5; O2SAT 90–95
[2017-10-20] MEDS: CHECK FENTANYL PATCH PLACEMENT SCH ×3 (00:17→15:48)
[2017-10-20] MEDS: INSULIN ASPART 100 UNITS/ML 3 ML PEN SC SCH ×4 (00:20→18:06)
[2017-10-20] MEDS: ONDANSETRON INJ 2 MG/ML 2 ML VIAL IV PRN (00:35)
[2017-10-20] MEDS: MoRPHine SULFATE 2 MG/ML CARP IV PRN ×3 (00:36→22:10)
[2017-10-20] MEDS: METOPROLOL TARTRATE 1 MG/ML VIAL IV. SCH ×4 (02:44→20:13)
[2017-10-20 06:46] LABS: COMPLETE YES; HEMATOCRIT 37.2 % (42-52); IG% 0.2 %; LYMPH % 5.9 %; LYMPH ABS # 0.26 K/uL (1.2-3.4); MEAN CELL VOLUME 91.9 fL (80-100); MEAN CORPUSCULAR HEMOGLOBIN 29.1 pg (25-34); MEAN CORPUSCULAR HGB CONC 31.7 g/dl (32-36); MEAN PLATELET VOLUME 10.5 fL (7.4-10.4); MONO % 3.4 %; NEUT % 90.5 %; PLATELET COUNT 161 K/uL (130-400); RED BLOOD COUNT 4.05 M/uL (4.7-6.1); WHITE BLOOD COUNT 4.43 K/uL (4.8-10.8)
[2017-10-20] MEDS: ALBUT/IPRATROP 3MG/0.5MG NEB 3 ML VIAL INH SCH (06:53)
[2017-10-20 07:17] LABS: BUN/CREATININE RATIO 22.2 (10-20); CALCIUM 9.5 mg/dl (8.5-10.1); CREATININE 1.32 mg/dl (0.60-1.40); MAGNESIUM 1.9 mg/dl (1.8-2.4); POTASSIUM 4.7 mmol/L (3.5-5.1)
[2017-10-20 07:20] LABS: PHOSPHORUS 2.8 mg/dl (2.5-4.9)
[2017-10-20] MEDS: DEXAMETHASONE INJ 4 MG in SYRINGE 0 ML IV SCH (07:35)
[2017-10-20] MEDS ORDERED: INSULIN GLARGINE SOLOSTAR 100 UNITS/ML 3 ML PEN SC ONE ×2 (08:00→13:30)
--- NOTE | 2017-10-20 08:43 | Progress Note ---
Medicine Progress Note Date & Time of Visit: Oct 20, 2017 at 08:05 . Subjective Received chemo last evening. Experienced some nausea, no other problems. Afebrile. Cough productive of bloody mucus. No significant SOB. Intermittent anterior chest pain, no different than what he has been experiencing recently. No bowel movements for several days. Left ankle pain better. . Objective Last 8 Hrs Date Time Temp Pulse Resp B/P (MAP) Pulse Ox O2 Delivery O2 Flow Rate FiO2 10/20/17 07:35 78 100/66 10/20/17 07:19 36.3 105 18 100/66 (77) 92 Room Air 10/20/17 06:54 93 16 93 Room Air 10/20/17 05:12 36.5 81 21 108/69 (82) 95 Room Air 10/20/17 02:44 106 113/77 (89) 92 Room Air 10/20/17 02:44 115 113/77 10/20/17 00:30 Room Air Physical Exam: General- sitting in chair, no acute distress Eyes- anicteric Neck- no JVD Lungs- diffuse mild wheezing, few scattered rhonchi Heart- irregular; no murmur or gallop appreciated Abdomen- + BS, soft, nontender Extremities- trace pretibial edema; less erythema and tenderness left medial ankle Neuro- alert . Laboratory Results: Last 24 Hours Test 10/19/17 11:26 10/19/17 14:27 10/19/17 18:19 10/20/17 00:08 Bedside Glucose 123 mg/dl 207 mg/dl 247 mg/dl White Blood Count 5.05 K/uL Red Blood Count 4.28 M/uL Hemoglobin 12.4 g/dL Hematocrit 39.5 % Mean Corpuscular Volume 92.3 fL Mean Corpuscular Hemoglobin 29.0 pg Mean Corpuscular Hemoglobin Concent 31.4 g/dl Platelet Count 156 K/uL Mean Platelet Volume 10.5 fL Neutrophils (%) (Auto) 90.3 % Lymphocytes (%) (Auto) 6.7 % Monocytes (%) (Auto) 2.4 % Eosinophils (%) (Auto) 0.4 % Basophils (%) (Auto) 0.2 % Neutrophils # (Auto) 4.56 K/uL Lymphocytes # (Auto) 0.34 K/uL Monocytes # (Auto) 0.12 K/uL Eosinophils # (Auto) 0.02 K/uL Basophils # (Auto) 0.01 K/uL RDW Standard Deviation 50.0 fL RDW Coefficient of Variation 14.9 % Immature Granulocyte % (Auto) 0.0 % Immature Granulocyte # (Auto) 0.00 K/uL Test 10/20/17 06:05 10/20/17 06:35 White Blood Count 4.43 K/uL Red Blood Count 4.05 M/uL Hemoglobin 11.8 g/dL Hematocrit 37.2 % Mean Corpuscular Volume 91.9 fL Mean Corpuscular Hemoglobin 29.1 pg Mean Corpuscular Hemoglobin Concent 31.7 g/dl Platelet Count 161 K/uL Mean Platelet Volume 10.5 fL Neutrophils (%) (Auto) 90.5 % Lymphocytes (%) (Auto) 5.9 % Monocytes (%) (Auto) 3.4 % Eosinophils (%) (Auto) 0.0 % Basophils (%) (Auto) 0.0 % Neutrophils # (Auto) 4.01 K/uL Lymphocytes # (Auto) 0.26 K/uL Monocytes # (Auto) 0.15 K/uL Eosinophils # (Auto) 0.00 K/uL Basophils # (Auto) 0.00 K/uL RDW Standard Deviation 50.0 fL RDW Coefficient of Variation 14.8 % Immature Granulocyte % (Auto) 0.2 % Immature Granulocyte # (Auto) 0.01 K/uL Sodium Level 137 mmol/L Potassium Level 4.7 mmol/L Chloride Level 100 mmol/L Carbon Dioxide Level 30 mmol/L Anion Gap 7.0 mmol/L Blood Urea Nitrogen 29 mg/dl Creatinine 1.32 mg/dl Est Creatinine Clear Calc Drug Dose 74.2 ml/min Estimated GFR () 69.4 Estimated GFR (Non- 59.9 BUN/Creatinine Ratio 22.2 Random Glucose 210 mg/dl Calcium Level 9.5 mg/dl Phosphorus Level 2.8 mg/dl Magnesium Level 1.9 mg/dl Bedside Glucose 205 mg/dl Assessment & Plan SMALL CELL CARCINOMA OF LUNG Imaging by CT and PET scans demonstrated large mediastinal lymphadenopathy with extension into the left hilar region and extrinsic compression on the proximal esophagus. Biopsy demonstrated small cell carcinoma. Management per Medical Oncology and Radiation Oncology. Chemotherapy started 10/19 (carboplatin, etoposide, fosaprepitant, dexamethasone ). DYSPHAGIA Severe dysphagia to solids, liquids, meds due to extrinsic compression from mediastinal mass. NPO. Case discussed with GI and Medical Oncology. Esophageal stent placement would be challenging and could lead to complications. Medical Oncology suggests short-term nutritional support with TPN pending anticipated response to chemoradiation. Keep head elevated at all times. COUGH / HEMOPTYSIS Cough productive of green sputum for past few weeks. No fever. Probably aspirating, but no evidence of pneumonia (afebrile, no infiltrates on chest imaging). May have sinusitis or bronchitis. May be prudent to resume antibiotic therapy in light of chemotherapy. Sputum C&S pending. Continue levofloxacin. Aspiration precautions. Keep head of bed elevated to minimize risk of aspiration. Cough now productive of bloody mucus. Differential diagnosis includes hemoptysis secondary to infection, malignancy, pulmonary embolism. Blood seems to be mixed with purulent sputum, so favor infection. Certainly at risk for pulmonary embolism, but hemoptysis not characteristic, CTA chest on admission negative for PE, and venous duplex left lower extremity negative for DVT. Hold enoxaparin. Check sputum gram stain, C&S. CORONARY ARTERY DISEASE Chest pain probably due to malignancy. Troponin normal. Hold aspirin because of GI symptoms. Continue metoprolol. ATRIAL FIBRILLATION (CHRONIC) Rate usually controlled on metoprolol and diltiazem. Converted to parenteral metoprolol due to severe dysphagia. Unable to swallow apixaban. Add IV digoxin for better rate control. Anticoagulation management as noted. CHF Acute on chronic left ventricular diastolic heart failure. Receiving TPN + chemo. Watch exam, weights. Continue diuretics. HYPERTENSION Continue metoprolol as noted above. CHRONIC HYPOXIC RESPIRATORY FAILURE Continue oxygen. SLEEP APNEA Does not tolerate CPAP. DM TYPE 2 Expect fluctuating blood sugars due to acute illness, NPO status, anticipated TPN, steroids. Lantus / NovoLog per protocol. FBS this morning = 205. LEFT CALF PAIN Venous duplex 10/19 negative for DVT. LEFT ANKLE PAIN Suspect gout flare. Uric acid 10/19 14.9. Cannot take colchicine due to NPO status (may be potential issue with chemo as well). Cannot take NSAID's. Best option = steroids. IV methylprednisolone x 1 ordered. Also receiving dexamethasone with chemo. Pain / exam improved. VTE PROPHYLAXIS Unable to swallow apixaban. Transitioned to SQ enoxaparin. Now with bloody sputum. Hold enoxaparin. SCD's. Ambulate. DISPOSITION To be determined. Primary care follow-up with Dr. James. . Consultants: GI Medical Oncology Radiation Oncology . Procedures: CTA chest cardiac monitoring IV meds PICC TPN chemotherapy . Current Inpatient Medications: Current Inpatient Medications Medications (Trade) Dose Ordered Sig/Elizabeth Route Start Time Stop Time Status Last Admin Dose Admin Acetaminophen/ Hydrocodone Bitart ([place] 7.5/325 Tab) 1 tab Q6 PRN PO 10/17/17 15:30 10/31/17 15:29 Nitroglycerin (Nitrostat Tab) 0.4 mg UD PRN SL 10/17/17 15:45 11/16/17 15:44 Glucose (Glucose 40% Gel) 15-30 GRAMS 15 GRAMS... UD PRN PO 10/17/17 15:45 11/16/17 15:44 Glucose (Glucose Chew Tab) 4-8 Tablets 4 Tabl... UD PRN PO 10/17/17 15:45 11/16/17 15:44 Dextrose (Dextrose 50% 50ML Syringe) 25-50ML OF 50% DW IV FOR... UD PRN IV 10/17/17 15:45 11/16/17 15:44 Glucagon (Glucagon Inj) 1 mg UD PRN SQ 10/17/17 15:45 11/16/17 15:44 Ioversol (Optiray 320) 100 ml UD PRN IV 10/17/17 17:45 10/21/17 17:44 Metoprolol Tartrate (Lopressor Iv) 5 mg Q6H IV. 10/17/17 20:00 11/16/17 19:59 10/20/17 07:35 5 MG Fentanyl (Duragesic Patch) 12 mcg Q3D@2100 TD 10/17/17 21:00 10/31/17 20:59 10/17/17 22:06 12 MCG Miscellaneous (Fentanyl Patch Remove & Waste) 1 ea Q3D@2059 N/A 10/17/17 20:59 11/16/17 20:58 Miscellaneous Information (Check Fentanyl Patch Placement) 1 ea QS N/A 10/18/17 00:00 11/17/17 00:00 10/20/17 07:38 1 EA Bisacodyl (Dulcolax Supp) 10 mg DAILY PRN DC 10/17/17 20:30 11/16/17 20:29 Insulin Aspart (novoLOG ASPART) SLIDING SCALE IF C... Q6 SC 10/18/17 06:00 11/17/17 05:59 10/20/17 07:14 3 UNITS Albuterol/ Ipratropium (Duoneb) 3 ml QIDR INH 10/18/17 08:00 11/17/17 07:59 10/20/17 06:53 3 ML Ondansetron HCl (Zofran Inj) 4 mg Q6H PRN IV 10/18/17 02:15 11/17/17 02:14 10/20/17 00:35 4 MG Miscellaneous Information (Pharmacy Tpn/ Ppn Consult Active) 1 ea UD PRN N/A 10/20/17 09:00 11/19/17 08:59 Levofloxacin 750 mg/Prmx 150 ml @ 100 mls/hr Q24H IV 10/19/17 12:00 10/26/17 11:59 10/19/17 11:42 100 MLS/HR Nutrition (Parenteral) 0 ml @ 0 mls/hr TODAY@1600 IV 10/19/17 16:00 10/20/17 15:59 10/19/17 16:03 0 MLS/HR Dextrose 1,000 ml @ 0 mls/hr Q0M PRN IV 10/19/17 11:50 11/18/17 11:49 Dexamethasone Sodium Phosphate 4 mg/Syringe 1 ml @ 1 mls/min DAILY IV 10/20/17 08:00 11/19/17 07:59 10/20/17 07:35 1 MLS/MIN Morphine Sulfate (MoRPHine SULFATE INJ) 1 mg Q2H PRN IV 10/19/17 13:30 10/31/17 17:29 Morphine Sulfate (MoRPHine SULFATE INJ) 2 mg Q2H PRN IV 10/19/17 13:30 11/02/17 13:29 10/20/17 07:37 2 MG Etoposide 175 mg/ Sodium Chloride 558.75 ml @ 558.75 mls/hr DAILY@1830 IV 10/20/17 18:30 10/21/17 19:29 Ondansetron HCl 24 mg/ Dexamethasone Sodium Phosphate 4 mg/Sodium Chloride 63 ml @ 236.8 mls/ hr TODAY@1800 IV 10/20/17 18:00 10/21/17 18:16 Furosemide 40 mg/ Syringe 4 ml @ 4 mls/min BID@0900,1500 IV 10/20/17 09:00 11/19/17 08:59 Heparin Sodium (Porcine) (Heparin 10 Unit/ ml 5 ml Flush) 5 ml PRN PRN FLUSH 10/20/17 02:15 11/19/17 02:14 10/20/17 06:06 5 ML Fentanyl (Duragesic Patch) 25 mcg Q72H TD 10/20/17 09:00 11/03/17 08:59 UNV Miscellaneous (Fentanyl Patch Remove & Waste) 1 ea Q3D N/A 10/23/17 08:30 11/22/17 08:29 UNV Miscellaneous Information (Check Fentanyl Patch Placement) 1 ea QS N/A 10/20/17 16:00 11/19/17 15:59 UNV
[2017-10-20] MEDS: FUROSEMIDE INJ 40 MG in SYRINGE 0 ML IV SCH ×2 (08:50→15:47)
[2017-10-20] MEDS ORDERED: TPN/PPN CONSULT PHARMACY PRN (09:00)
[2017-10-20] MEDS ORDERED: LEVALBUTEROL 0.63MG/3 ML NEB INH PRN (09:00)
[2017-10-20] MEDS ORDERED: DIGOXIN IV 250 MCG in SYRINGE 9 ML IV ONE ×2 (09:00→21:00)
[2017-10-20] MEDS: FENTANYL PATCH REMOVE & WASTE SCH (09:32)
[2017-10-20] MEDS: FENTANYL 25 MCG/HR TDSY TD SCH (09:33)
[2017-10-20] MEDS: IPRATROPIUM BROMIDE NEB SOLN 0.02% 2.5 ML VIAL INH SCH ×3 (11:03→19:59)
[2017-10-20] MEDS: LEVALBUTEROL 1.25MG/0.5ML NEB INH SCH ×3 (11:03→19:59)
[2017-10-20] MEDS ORDERED: PHARMACY GLYCEMIC MGMT CONSULT PRN (11:12)
--- NOTE | 2017-10-20 12:09 | Hematology/Oncology Prog Note ---
Hematology/Onc Progress Note Date of Service Oct 20, 2017. 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 10/17/17 20:00 11/16/17 19:59 10/20/17 07:35 5 MG Furosemide 40 mg/ Syringe 4 ml @ 4 mls/min BID17 IV 10/18/17 09:00 10/18/17 15:24 DC 10/18/17 08:33 4 MLS/MIN Fentanyl (Duragesic Patch) 12 mcg Q3D@2100 TD 10/17/17 21:00 10/20/17 08:46 DC 10/17/17 22:06 12 MCG Miscellaneous Information (Check Fentanyl Patch Placement) 1 ea QS N/A 10/18/17 00:00 10/20/17 08:46 DC 10/20/17 07:38 1 EA Insulin Aspart (novoLOG ASPART) SLIDING SCALE IF C... Q6 SC 10/18/17 06:00 11/17/17 05:59 10/20/17 07:14 3 UNITS Albuterol/ Ipratropium (Duoneb) 3 ml QIDR INH 10/18/17 08:00 10/20/17 08:48 DC 10/20/17 06:53 3 ML Levofloxacin 500 mg/Prmx 100 ml @ 100 mls/hr Q24H IV 10/18/17 00:00 10/18/17 15:24 DC 10/18/17 00:20 100 MLS/HR Ondansetron HCl (Zofran Inj) 4 mg STK-MED ONCE .ROUTE 10/18/17 01:33 10/18/17 01:34 DC 10/18/17 01:42 4 MG Ondansetron HCl (Zofran Inj) 4 mg Q6H PRN IV 10/18/17 02:15 11/17/17 02:14 10/20/17 00:35 4 MG Enoxaparin Sodium (Lovenox Inj) 40 mg NOW ONCE SQ 10/18/17 15:30 10/18/17 16:22 DC 10/18/17 17:43 40 MG Potassium Chloride/Dextrose/ Sod Cl 1,000 ml @ 125 mls/hr Q8H IV 10/18/17 17:00 10/19/17 10:31 DC 10/19/17 08:06 125 MLS/HR Furosemide 40 mg/ Syringe 4 ml @ 4 mls/min NOW ONCE IV 10/19/17 09:30 10/19/17 09:31 DC 10/19/17 09:57 4 MLS/MIN Levofloxacin 750 mg/Prmx 150 ml @ 100 mls/hr Q24H IV 10/19/17 12:00 10/26/17 11:59 10/19/17 11:42 100 MLS/HR Methylprednisolone Sodium Succinate 40 mg/Syringe 0.64 ml @ 1.5 mls/min NOW ONCE IV 10/19/17 11:45 10/19/17 11:46 DC 10/19/17 11:42 1.5 MLS/MIN Enoxaparin Sodium (Lovenox Inj) 100 mg Q12 SQ 10/19/17 21:00 10/20/17 08:22 DC 10/19/17 21:13 100 MG Nutrition (Parenteral) 0 ml @ 0 mls/hr TODAY@1600 IV 10/19/17 16:00 10/20/17 15:59 10/19/17 16:03 0 MLS/HR Dexamethasone Sodium Phosphate 4 mg/Syringe 1 ml @ 1 mls/min DAILY IV 10/20/17 08:00 11/19/17 07:59 10/20/17 07:35 1 MLS/MIN Morphine Sulfate (MoRPHine SULFATE INJ) 2 mg Q2H PRN IV 10/19/17 13:30 11/02/17 13:29 10/20/17 07:37 2 MG Ondansetron HCl 16 mg/ Dexamethasone Sodium Phosphate 12 mg/Sodium Chloride 59.2 ml @ 236.8 mls/ hr TODAY@1800 IV 10/19/17 18:00 10/19/17 20:00 DC 10/19/17 18:15 236.8 MLS/HR Fosaprepitant 150 mg/Sodium Chloride 150 ml @ 300 mls/hr TODAY@1800 IV 10/19/17 18:00 10/19/17 20:00 DC 10/19/17 18:15 300 MLS/HR Carboplatin 550 mg/Sodium Chloride 305 ml @ 610 mls/hr TODAY@1830 IV 10/19/17 18:30 10/19/17 20:30 DC 10/19/17 19:09 610 MLS/HR Etoposide 175 mg/ Sodium Chloride 558.75 ml @ 558.75 mls/hr TODAY@1900 IV 10/19/17 19:00 10/19/17 21:00 DC 10/19/17 20:20 558.75 MLS/HR Furosemide 40 mg/ Syringe 4 ml @ 4 mls/min NOW ONCE IV 10/19/17 19:00 10/19/17 19:01 DC 10/19/17 21:11 4 MLS/MIN Furosemide 40 mg/ Syringe 4 ml @ 4 mls/min BID@0900,1500 IV 10/20/17 09:00 11/19/17 08:59 10/20/17 08:50 4 MLS/MIN Digoxin 250 mcg/ Syringe 10 ml @ 2 mls/min TODAY@2115 IV 10/19/17 21:15 10/19/17 21:19 DC 10/19/17 21:26 2 MLS/MIN Heparin Sodium (Porcine) (Heparin 10 Unit/ ml 5 ml Flush) 5 ml PRN PRN FLUSH 10/20/17 02:15 11/19/17 02:14 10/20/17 06:06 5 ML Insulin Glargine (Lantus Solostar Pen) 10 units NOW ONCE SC 10/20/17 08:00 10/20/17 08:01 DC 10/20/17 08:48 10 UNITS Fentanyl (Duragesic Patch) 25 mcg Q3D@0900 TD 10/20/17 09:30 11/03/17 09:29 10/20/17 09:33 25 MCG Miscellaneous (Fentanyl Patch Remove & Waste) 1 ea Q3D@0859 N/A 10/20/17 09:29 11/19/17 09:28 10/20/17 09:32 1 EA Digoxin 250 mcg/ Syringe 10 ml @ 2 mls/min 0900 ONCE IV 10/20/17 09:00 10/20/17 09:04 DC 10/20/17 09:23 2 MLS/MIN Ipratropium [place] (Atrovent 0.02% 0.5MG/2.5ML Neb) 0.5 mg QIDR INH 10/20/17 12:00 11/19/17 11:59 10/20/17 11:03 0.5 MG Levalbuterol (Xopenex 1.25MG/ 0.5ML Neb) 1.25 mg QIDR INH 10/20/17 12:00 11/19/17 11:59 10/20/17 11:03 1.25 MG Subjective Received carboplatinum and [employer] PHYSICIAN-16 yesterday and is scheduled for another dose of etoposide today. He did have some mild nausea but he downplays that. Otherwise he seems to be doing rather well. Review of Systems: Constitutional: Negative for night sweats, or fever Eyes: Negative for event change of vision ENT: Negative for epistaxis, nasal discharge, sore throat, or deafness Cardiovascular: Negative for worsening chest pain, palpitations, dizziness, diaphoresis Respiratory: Negative for worsening shortness of breath,hemoptysis, or purulent cough Gastrointestinal: Negative for diarrhea, hematemesis, melena, nausea, vomiting , or dyspepsia Integumentary (skin): Negative for rash or jaundice discoloration Genitourinary: Negative for urinary frequency, hematuria, or dysuria Neurological: Negative for weakness, seizure activity, headache, or dizziness Lymphatic/Hematologic: Negative for petechiae, bleeding or new adenopathy Musculoskeletal: Negative for new joint or back pain Allergic/Immunologic: Negative for unusual rash or pruritis. Vital Signs Vital Signs Past 12 Hours Date Time Temp Pulse Resp B/P (MAP) Pulse Ox O2 Delivery O2 Flow Rate FiO2 10/20/17 11:09 103 20 116/77 (90) 93 Room Air 10/20/17 11:05 104 16 93 Room Air 10/20/17 09:23 100 10/20/17 08:00 Room Air 10/20/17 07:35 78 100/66 10/20/17 07:19 36.3 105 18 100/66 (77) 92 Room Air 10/20/17 06:54 93 16 93 Room Air 10/20/17 05:12 36.5 81 21 108/69 (82) 95 Room Air 10/20/17 02:44 106 113/77 (89) 92 Room Air 10/20/17 02:44 115 113/77 10/20/17 00:30 Room Air Physical Exam Constitutional: vitals are stable. Eyes: Eyes are DANG EOMI without conjuctival erythema or icterus. ENT: External examination was negative for masses. Neck: Negative for masses or palpable thyromegaly Respiratory: Lung sounds were generally clear but with decreased sounds bilaterally Cardiovascular: Heart was IRRR without significant murmur, gallops aoe rubs Gastrointestinal: No palpable hepatic or splenomegaly. The abdomen was soft with normal bowel sounds. Lymphatic system: there was no palpable peripheral lymphadenopathy Musculoskeletal System: The musculoskeletal system seemed concordant with age. Skin: The skin was negative for jaundice. Neurologic exam: The exam was negative for any focal findings. Deep tendon reflexes were equal and symmetrical. Psychiatric exam: Was essentially negative with normal mood and effect. Extremities; Bilateral edema particularly on the left. Mild erythema around the just inferior to the ankle and the left Laboratory Last 24 Hours Test 10/19/17 14:27 10/19/17 18:19 10/20/17 00:08 10/20/17 06:05 White Blood Count 5.05 K/uL 4.43 K/uL Red Blood Count 4.28 M/uL 4.05 M/uL Hemoglobin 12.4 g/dL 11.8 g/dL Hematocrit 39.5 % 37.2 % Mean Corpuscular Volume 92.3 fL 91.9 fL Mean Corpuscular Hemoglobin 29.0 pg 29.1 pg Mean Corpuscular Hemoglobin Concent 31.4 g/dl 31.7 g/dl Platelet Count 156 K/uL 161 K/uL Mean Platelet Volume 10.5 fL 10.5 fL Neutrophils (%) (Auto) 90.3 % 90.5 % Lymphocytes (%) (Auto) 6.7 % 5.9 % Monocytes (%) (Auto) 2.4 % 3.4 % Eosinophils (%) (Auto) 0.4 % 0.0 % Basophils (%) (Auto) 0.2 % 0.0 % Neutrophils # (Auto) 4.56 K/uL 4.01 K/uL Lymphocytes # (Auto) 0.34 K/uL 0.26 K/uL Monocytes # (Auto) 0.12 K/uL 0.15 K/uL Eosinophils # (Auto) 0.02 K/uL 0.00 K/uL Basophils # (Auto) 0.01 K/uL 0.00 K/uL RDW Standard Deviation 50.0 fL 50.0 fL RDW Coefficient of Variation 14.9 % 14.8 % Immature Granulocyte % (Auto) 0.0 % 0.2 % Immature Granulocyte # (Auto) 0.00 K/uL 0.01 K/uL Bedside Glucose 207 mg/dl 247 mg/dl Sodium Level 137 mmol/L Potassium Level 4.7 mmol/L Chloride Level 100 mmol/L Carbon Dioxide Level 30 mmol/L Anion Gap 7.0 mmol/L Blood Urea Nitrogen 29 mg/dl Creatinine 1.32 mg/dl Est Creatinine Clear Calc Drug Dose 74.2 ml/min Estimated GFR () 69.4 Estimated GFR (Non- 59.9 BUN/Creatinine Ratio 22.2 Random Glucose 210 mg/dl Calcium Level 9.5 mg/dl Phosphorus Level 2.8 mg/dl Magnesium Level 1.9 mg/dl Test 10/20/17 06:35 10/20/17 11:42 Bedside Glucose 205 mg/dl 247 mg/dl Assessment & Plan Small cell lung carcinoma with massive mediastinal mass. TPN ongoing. Chemotherapy has begun. Etoposide dose #2 of 3 doses planned for today. Clinically he appears stable. Laboratory is acceptable. Radiation therapy consult Sunday.
[2017-10-20] MEDS: LEVOFLOXACIN / D5W 750 MG in PREMIXED IN D5W 150 ML IV SCH (12:20)
--- NOTE | 2017-10-20 14:00 | Pharmacy Progress Note ---
Glycemic Control Intl Consult Date of Service Oct 20, 2017. Scope Glycemic Pharmacist consulted by Dr Abdullahi on 10/20/17 for glycemic control and to write orders per [facility] inpatient glycemic control protocol Objective Weight (Kilograms): 100.400 Accuchecks BSG (last 24hrs): Test 10/19/17 18:19 10/20/17 00:08 10/20/17 06:05 10/20/17 06:35 Bedside Glucose 207 mg/dl (70-99) 247 mg/dl (70-99) 205 mg/dl (70-99) Random Glucose 210 mg/dl (70-99) Test 10/20/17 11:42 Bedside Glucose 247 mg/dl (70-99) Laboratory Data (last 24hrs) Test 10/19/17 14:27 10/20/17 06:05 White Blood Count 5.05 K/uL 4.43 K/uL Red Blood Count 4.28 M/uL 4.05 M/uL Hemoglobin 12.4 g/dL 11.8 g/dL Hematocrit 39.5 % 37.2 % Mean Corpuscular Volume 92.3 fL 91.9 fL Mean Corpuscular Hemoglobin 29.0 pg 29.1 pg Mean Corpuscular Hemoglobin Concent 31.4 g/dl 31.7 g/dl Platelet Count 156 K/uL 161 K/uL Mean Platelet Volume 10.5 fL 10.5 fL Neutrophils (%) (Auto) 90.3 % 90.5 % Lymphocytes (%) (Auto) 6.7 % 5.9 % Monocytes (%) (Auto) 2.4 % 3.4 % Eosinophils (%) (Auto) 0.4 % 0.0 % Basophils (%) (Auto) 0.2 % 0.0 % Neutrophils # (Auto) 4.56 K/uL 4.01 K/uL Lymphocytes # (Auto) 0.34 K/uL 0.26 K/uL Monocytes # (Auto) 0.12 K/uL 0.15 K/uL Eosinophils # (Auto) 0.02 K/uL 0.00 K/uL Basophils # (Auto) 0.01 K/uL 0.00 K/uL Anion Gap 7.0 mmol/L BUN/Creatinine Ratio 22.2 Blood Urea Nitrogen 29 mg/dl Creatinine 1.32 mg/dl Potassium Level 4.7 mmol/L Sodium Level 137 mmol/L HbA1c Test 10/18/17 06:43 Hemoglobin A1c 6.3 % (4.5-5.6) H Recent Pertinent Medications Outpatient Anti-diabetic Regimen: * None - diet controlled? The patient is currently receiving: * Basal insulin: Lantus 10 units x 1 this AM, then BID as per scale * Correctional Insulin: Novolog Correction per scale q6h Goal Range: Low 140 mg/dL - High 180 mg/dL Correction Factor: 20 mg/dL/unit * Prandial insulin: None Risk Factors for Insulin Resistance: * Steroids: Decadron 12 mg last night, then 4 mg IV BID while receiving chemo * Diet: TPN started last evening - current bag w/ 150 gm of dextrose Assessment & Plan ASSESSMENT: * 57 y/o male with type 2 diabetes, not on any medications at home * TPN was started last evening, along with IV Decadron with chemo and BSGs have been in the 200s since starting both * Dr. Abdullahi was making some changes with SQ insulin and I spoke with him about adding insulin in the bag as well. Pharmacy has been consulted for glycemic management because we are also managing the TPN. * Dextrose in TPN will be increased today, but only by 50 gm due to hyperglycemia * Insulin regimen based on insulin calculator estimates using patient's weight and stress level of 3 - due to the IV Decadron * Will determine further adjustments to insulin in the bag based upon what patient receives in correctional insulin over the next 24 hours PLAN FOR INPATIENT GLYCEMIC CONTROL: * Additional 15 units of Lantus x 1 now, then 17 or 25 units (stress level of 2 or 3) BID * Novolog q6h * Goal 140-180 * TIGHTEN CF to 15 * 30 units of insulin in TPN to start at 1600 today Discharge recommendations: * No change, A1c in pre-diabetes range Thank you.
[2017-10-20] MEDS ORDERED: CUSTOM CENTRAL PN 1 BAG IV SCH (16:00)
[2017-10-20] MEDS: DEXAMETHASONE IV SCH (17:04)
[2017-10-20] MEDS: ONDANSETRON IV SCH (17:04)
[2017-10-20] MEDS: SODIUM CHLORIDE 0.9% IV SCH ×2 (17:04→17:58)
[2017-10-20] MEDS: ETOPOSIDE IV SCH (17:58)
[2017-10-20] MEDS ORDERED: ONDANSETRON IV SCH (18:00)
[2017-10-20] MEDS ORDERED: ONDANSETRON 8 MG TAB PO SCH (18:00)
[2017-10-20] MEDS ORDERED: INSULIN GLARGINE SOLOSTAR 100 UNITS/ML 3 ML PEN SC SCH ×2 (18:00→20:00)
[2017-10-20] MEDS ORDERED: DEXAMETHASONE IV SCH (18:00)
[2017-10-20] MEDS ORDERED: DEXAMETHASONE 4 MG TAB PO SCH (18:00)
[2017-10-20] MEDS ORDERED: SODIUM CHLORIDE 0.9% IV SCH (18:00)
[2017-10-21] VITALS (16 sets, daily range): BP systolic 107–124; BP diastolic 68–81; PULSE 80–109; TEMP 36–37.4; O2SAT 91–98
[2017-10-21] MEDS: INSULIN ASPART 100 UNITS/ML 3 ML PEN SC SCH ×4 (00:57→18:00)
[2017-10-21] MEDS: CHECK FENTANYL PATCH PLACEMENT SCH ×3 (00:59→16:11)
[2017-10-21] MEDS: ONDANSETRON INJ 2 MG/ML 2 ML VIAL IV PRN (02:10)
[2017-10-21] MEDS: METOPROLOL TARTRATE 1 MG/ML VIAL IV. SCH ×4 (02:15→20:17)
[2017-10-21] MEDS: MoRPHine SULFATE 2 MG/ML CARP IV PRN (04:10)
[2017-10-21 06:07] LABS: COMPLETE YES; HEMATOCRIT 34.9 % (42-52); IG% 0.2 %; LYMPH % 3.8 %; LYMPH ABS # 0.22 K/uL (1.2-3.4); MEAN CELL VOLUME 90.9 fL (80-100); MEAN CORPUSCULAR HEMOGLOBIN 29.2 pg (25-34); MEAN CORPUSCULAR HGB CONC 32.1 g/dl (32-36); MEAN PLATELET VOLUME 10.8 fL (7.4-10.4); MONO % 5.4 %; NEUT % 90.6 %; PLATELET COUNT 157 K/uL (130-400); RED BLOOD COUNT 3.84 M/uL (4.7-6.1); WHITE BLOOD COUNT 5.72 K/uL (4.8-10.8)
[2017-10-21 06:40] LABS: CALCIUM 8.9 mg/dl (8.5-10.1); CREATININE 1.3 mg/dl (0.60-1.40); POTASSIUM 4.7 mmol/L (3.5-5.1)
[2017-10-21 06:41] LABS: PHOSPHORUS 2.9 mg/dl (2.5-4.9)
[2017-10-21] MEDS: IPRATROPIUM BROMIDE NEB SOLN 0.02% 2.5 ML VIAL INH SCH ×4 (07:17→18:36)
[2017-10-21] MEDS: LEVALBUTEROL 1.25MG/0.5ML NEB INH SCH ×4 (07:17→18:36)
[2017-10-21] MEDS ORDERED: INSULIN GLARGINE SOLOSTAR 100 UNITS/ML 3 ML PEN SC ONE (08:00)
[2017-10-21] MEDS: DEXAMETHASONE INJ 4 MG in SYRINGE 0 ML IV SCH (09:12)
[2017-10-21] MEDS: FUROSEMIDE INJ 40 MG in SYRINGE 0 ML IV SCH ×2 (09:13→16:01)
[2017-10-21] MEDS: LEVOFLOXACIN / D5W 750 MG in PREMIXED IN D5W 150 ML IV SCH (11:50)
--- NOTE | 2017-10-21 11:52 | Pharmacy Progress Note ---
Pharmacy Glycemic Short Note 2 Date of Service Oct 21, 2017. ASSESSMENT: * Mr. Glasgow received 95 units of insulin yesterday with BSGs improved significantly * BID Decadron will remain for today and will plan to increase dextrose in the TPN by another 50 gm * I would like to adjust the insulin regimen to be ~30% basal with the steroids on board, especially if the TPN would be stopped abruptly PLAN FOR INPATIENT GLYCEMIC CONTROL: * Increase insulin in TPN to 70 units (will receive 250 gm dextrose in TPN) * Decrease Lantus to 15 units BID, but give 20 units this AM since insulin increase in TPN will not start until ~1600 * Continue Novolog q6h * Goal 140-180 * CF 15 mg/dL/unit * Note that Decadron will be decreased to just once daily tomorrow since last day of chemo is today. Will need to reassess tomorrow AM to determine further changes.
--- NOTE | 2017-10-21 12:09 | Hematology/Oncology Prog Note ---
Hematology/Onc Progress Note Date of Service Oct 21, 2017. 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 10/17/17 20:00 11/16/17 19:59 10/21/17 09:12 5 MG Furosemide 40 mg/ Syringe 4 ml @ 4 mls/min BID17 IV 10/18/17 09:00 10/18/17 15:24 DC 10/18/17 08:33 4 MLS/MIN Fentanyl (Duragesic Patch) 12 mcg Q3D@2100 TD 10/17/17 21:00 10/20/17 08:46 DC 10/17/17 22:06 12 MCG Miscellaneous Information (Check Fentanyl Patch Placement) 1 ea QS N/A 10/18/17 00:00 10/20/17 08:46 DC 10/20/17 07:38 1 EA Insulin Aspart (novoLOG ASPART) SLIDING SCALE IF C... Q6 SC 10/18/17 06:00 11/17/17 05:59 10/21/17 06:52 1 UNITS Albuterol/ Ipratropium (Duoneb) 3 ml QIDR INH 10/18/17 08:00 10/20/17 08:48 DC 10/20/17 06:53 3 ML Levofloxacin 500 mg/Prmx 100 ml @ 100 mls/hr Q24H IV 10/18/17 00:00 10/18/17 15:24 DC 10/18/17 00:20 100 MLS/HR Ondansetron HCl (Zofran Inj) 4 mg STK-MED ONCE .ROUTE 10/18/17 01:33 10/18/17 01:34 DC 10/18/17 01:42 4 MG Ondansetron HCl (Zofran Inj) 4 mg Q6H PRN IV 10/18/17 02:15 11/17/17 02:14 10/21/17 02:10 4 MG Enoxaparin Sodium (Lovenox Inj) 40 mg NOW ONCE SQ 10/18/17 15:30 10/18/17 16:22 DC 10/18/17 17:43 40 MG Potassium Chloride/Dextrose/ Sod Cl 1,000 ml @ 125 mls/hr Q8H IV 10/18/17 17:00 10/19/17 10:31 DC 10/19/17 08:06 125 MLS/HR Furosemide 40 mg/ Syringe 4 ml @ 4 mls/min NOW ONCE IV 10/19/17 09:30 10/19/17 09:31 DC 10/19/17 09:57 4 MLS/MIN Levofloxacin 750 mg/Prmx 150 ml @ 100 mls/hr Q24H IV 10/19/17 12:00 10/26/17 11:59 10/21/17 11:50 100 MLS/HR Methylprednisolone Sodium Succinate 40 mg/Syringe 0.64 ml @ 1.5 mls/min NOW ONCE IV 10/19/17 11:45 10/19/17 11:46 DC 10/19/17 11:42 1.5 MLS/MIN Enoxaparin Sodium (Lovenox Inj) 100 mg Q12 SQ 10/19/17 21:00 10/20/17 08:22 DC 10/19/17 21:13 100 MG Nutrition (Parenteral) 0 ml @ 0 mls/hr TODAY@1600 IV 10/19/17 16:00 10/20/17 15:59 DC 10/19/17 16:03 0 MLS/HR Dexamethasone Sodium Phosphate 4 mg/Syringe 1 ml @ 1 mls/min DAILY IV 10/20/17 08:00 11/19/17 07:59 10/21/17 09:12 1 MLS/MIN Morphine Sulfate (MoRPHine SULFATE INJ) 2 mg Q2H PRN IV 10/19/17 13:30 11/02/17 13:29 10/21/17 04:10 2 MG Ondansetron HCl 16 mg/ Dexamethasone Sodium Phosphate 12 mg/Sodium Chloride 59.2 ml @ 236.8 mls/ hr TODAY@1800 IV 10/19/17 18:00 10/19/17 20:00 DC 10/19/17 18:15 236.8 MLS/HR Fosaprepitant 150 mg/Sodium Chloride 150 ml @ 300 mls/hr TODAY@1800 IV 10/19/17 18:00 10/19/17 20:00 DC 10/19/17 18:15 300 MLS/HR Carboplatin 550 mg/Sodium Chloride 305 ml @ 610 mls/hr TODAY@1830 IV 10/19/17 18:30 10/19/17 20:30 DC 10/19/17 19:09 610 MLS/HR Etoposide 175 mg/ Sodium Chloride 558.75 ml @ 558.75 mls/hr TODAY@1900 IV 10/19/17 19:00 10/19/17 21:00 DC 10/19/17 20:20 558.75 MLS/HR Etoposide 175 mg/ Sodium Chloride 558.75 ml @ 558.75 mls/hr DAILY@1830 IV 10/20/17 18:30 10/21/17 15:29 10/20/17 17:58 558.75 MLS/HR Ondansetron HCl 24 mg/ Dexamethasone Sodium Phosphate 4 mg/Sodium Chloride 63 ml @ 236.8 mls/ hr TODAY@1800 IV 10/20/17 18:00 10/21/17 14:16 10/20/17 17:04 236.8 MLS/HR Furosemide 40 mg/ Syringe 4 ml @ 4 mls/min NOW ONCE IV 10/19/17 19:00 10/19/17 19:01 DC 10/19/17 21:11 4 MLS/MIN Furosemide 40 mg/ Syringe 4 ml @ 4 mls/min BID@0900,1500 IV 10/20/17 09:00 11/19/17 08:59 10/21/17 09:13 4 MLS/MIN Digoxin 250 mcg/ Syringe 10 ml @ 2 mls/min TODAY@2115 IV 10/19/17 21:15 10/19/17 21:19 DC 10/19/17 21:26 2 MLS/MIN Heparin Sodium (Porcine) (Heparin 10 Unit/ ml 5 ml Flush) 5 ml PRN PRN FLUSH 10/20/17 02:15 11/19/17 02:14 10/20/17 19:10 5 ML Insulin Glargine (Lantus Solostar Pen) 10 units NOW ONCE SC 10/20/17 08:00 10/20/17 08:01 DC 10/20/17 08:48 10 UNITS Fentanyl (Duragesic Patch) 25 mcg Q3D@0900 TD 10/20/17 09:30 11/03/17 09:29 10/20/17 09:33 25 MCG Miscellaneous (Fentanyl Patch Remove & Waste) 1 ea Q3D@0859 N/A 10/20/17 09:29 11/19/17 09:28 10/20/17 09:32 1 EA Miscellaneous Information (Check Fentanyl Patch Placement) 1 ea QS N/A 10/20/17 16:00 11/19/17 15:59 10/21/17 09:13 1 EA Digoxin 250 mcg/ Syringe 10 ml @ 2 mls/min 0900 ONCE IV 10/20/17 09:00 10/20/17 09:04 DC 10/20/17 09:23 2 MLS/MIN Digoxin 250 mcg/ Syringe 10 ml @ 2 mls/min TODAY@2100 ONCE IV 10/20/17 21:00 10/20/17 21:04 DC 10/20/17 20:10 2 MLS/MIN Ipratropium [place] (Atrovent 0.02% 0.5MG/2.5ML Neb) 0.5 mg QIDR INH 10/20/17 12:00 11/19/17 11:59 10/21/17 11:11 0.5 MG Levalbuterol (Xopenex 1.25MG/ 0.5ML Neb) 1.25 mg QIDR INH 10/20/17 12:00 11/19/17 11:59 10/21/17 11:11 1.25 MG Nutrition (Parenteral) 0 ml @ 0 mls/hr TODAY@1600 IV 10/20/17 16:00 10/21/17 15:59 10/20/17 16:25 0 MLS/HR Insulin Glargine (Lantus Solostar Pen) 15 units ONE ONCE SC 10/20/17 13:30 10/20/17 13:31 DC 10/20/17 13:35 15 UNITS Insulin Glargine (Lantus Solostar Pen) SEE PROTOCOL TEXT BID SC 10/20/17 20:00 10/21/17 07:42 DC 10/20/17 20:17 25 UNITS Insulin Glargine (Lantus Solostar Pen) 20 units 0800 ONCE SC 10/21/17 08:00 10/21/17 08:01 DC 10/21/17 09:27 20 UNITS Subjective Received MEDICAID SERVICE COORDINATOR-16 yesterday and is doing well. He states he felt a little queasy but tolerated it well. Sitting in a bedside chair reading the morning newspaper. Review of Systems: Constitutional: Negative for night sweats, or fever Eyes: Negative for event change of vision ENT: Negative for epistaxis, nasal discharge, sore throat, or deafness Cardiovascular: Negative for new chest pain, palpitations, dizziness, diaphoresis Respiratory: Negative for new shortness of breath,hemoptysis, or purulent cough Gastrointestinal: Negative for diarrhea, hematemesis, melena, nausea, vomiting , or dyspepsia. He states he feels actually is swallowing might be a little better Integumentary (skin): Negative for rash or jaundice discoloration Genitourinary: Negative for urinary frequency, hematuria, or dysuria Neurological: Negative for weakness, seizure activity, headache, or dizziness Lymphatic/Hematologic: Negative for petechiae, bleeding or new adenopathy Musculoskeletal: Negative for new joint or back pain Allergic/Immunologic: Negative for unusual rash or pruritis. Vital Signs Vital Signs Past 12 Hours Date Time Temp Pulse Resp B/P (MAP) Pulse Ox O2 Delivery O2 Flow Rate FiO2 10/21/17 11:25 108 20 107/68 (81) Nasal Cannula 2.0 10/21/17 11:11 98 16 98 Nasal Cannula 2.0 10/21/17 09:12 89 112/68 10/21/17 09:11 89 112/68 (83) 10/21/17 08:00 Nasal Cannula 2.0 10/21/17 07:20 36.0 88 121/81 (94) 96 Nasal Cannula 2.0 10/21/17 07:17 80 16 96 Nasal Cannula 2.0 10/21/17 04:15 36.3 95 20 107/71 (83) 94 Room Air 10/21/17 02:15 105 114/72 10/21/17 00:20 Room Air Physical Exam Constitutional: vitals are stable. Eyes: Eyes are DANG EOMI without conjuctival erythema or icterus. ENT: External examination was negative for masses. Neck: Negative for masses or palpable thyromegaly Respiratory: Lung sounds were generally clear bilaterally Cardiovascular: Heart was RRR without significant murmur, gallops aoe rubs Gastrointestinal: No palpable hepatic or splenomegaly. The abdomen was soft with normal bowel sounds. Lymphatic system: there was no palpable peripheral lymphadenopathy Musculoskeletal System: The musculoskeletal system seemed concordant with age. Skin: The skin was negative for jaundice. Neurologic exam: The exam was negative for any focal findings. Deep tendon reflexes were equal and symmetrical. Psychiatric exam: Was essentially negative with normal mood and effect. Extremities: Mild edema as before dependently. Laboratory Last 24 Hours Test 10/20/17 16:36 10/20/17 18:03 10/21/17 00:47 10/21/17 05:48 Bedside Glucose 244 mg/dl 251 mg/dl 225 mg/dl White Blood Count 5.72 K/uL Red Blood Count 3.84 M/uL Hemoglobin 11.2 g/dL Hematocrit 34.9 % Mean Corpuscular Volume 90.9 fL Mean Corpuscular Hemoglobin 29.2 pg Mean Corpuscular Hemoglobin Concent 32.1 g/dl Platelet Count 157 K/uL Mean Platelet Volume 10.8 fL Neutrophils (%) (Auto) 90.6 % Lymphocytes (%) (Auto) 3.8 % Monocytes (%) (Auto) 5.4 % Eosinophils (%) (Auto) 0.0 % Basophils (%) (Auto) 0.0 % Neutrophils # (Auto) 5.18 K/uL Lymphocytes # (Auto) 0.22 K/uL Monocytes # (Auto) 0.31 K/uL Eosinophils # (Auto) 0.00 K/uL Basophils # (Auto) 0.00 K/uL RDW Standard Deviation 48.0 fL RDW Coefficient of Variation 14.6 % Immature Granulocyte % (Auto) 0.2 % Immature Granulocyte # (Auto) 0.01 K/uL Sodium Level 135 mmol/L Potassium Level 4.7 mmol/L Chloride Level 98 mmol/L Carbon Dioxide Level 28 mmol/L Anion Gap 9.0 mmol/L Blood Urea Nitrogen 46 mg/dl Creatinine 1.30 mg/dl Est Creatinine Clear Calc Drug Dose 75.3 ml/min Estimated GFR () 70.7 Estimated GFR (Non- 61.0 BUN/Creatinine Ratio 35.0 Random Glucose 165 mg/dl Calcium Level 8.9 mg/dl Phosphorus Level 2.9 mg/dl Magnesium Level 2.0 mg/dl Digoxin Level 1.3 ng/ml Test 10/21/17 06:48 10/21/17 11:30 Bedside Glucose 188 mg/dl 152 mg/dl Assessment & Plan Small cell lung carcinoma with massive mediastinal mass. TPN ongoing. Received day #2 with chest etoposide yesterday in the same will happen today. Seems to be tolerating therapy well. Neck systemic chemotherapy will be in 3 weeks. Radiation therapy will see the patient tomorrow in anticipation of radiation in addition to this massive mediastinal mass.
[2017-10-21] MEDS: DEXAMETHASONE IV SCH (14:04)
[2017-10-21] MEDS: ONDANSETRON IV SCH (14:04)
[2017-10-21] MEDS: SODIUM CHLORIDE 0.9% IV SCH ×2 (14:04→14:45)
[2017-10-21] MEDS: ETOPOSIDE IV SCH (14:45)
[2017-10-21] MEDS ORDERED: CUSTOM CENTRAL PN 1 BAG IV SCH (16:00)
[2017-10-21] MEDS: DIGOXIN IV 250 MCG in SYRINGE 9 ML IV SCH (16:01)
[2017-10-21] MEDS: INSULIN GLARGINE SOLOSTAR 100 UNITS/ML 3 ML PEN SC SCH (19:55)
--- NOTE | 2017-10-21 22:42 | Progress Note ---
Medicine Progress Note Date & Time of Visit: Oct 21, 2017 at 10:30 . Subjective Tolerating chemotherapy without significant side effects. Cough improved. No hemoptysis since last evening. No dyspnea. Anterior chest pain about same. Tolerating ice chips and sips of clear liquids. No nausea or vomiting. No diarrhea. Ambulating in hallway. . Objective Last 8 Hrs Date Time Temp Pulse Resp B/P (MAP) Pulse Ox O2 Delivery O2 Flow Rate FiO2 10/21/17 20:17 111 111/73 10/21/17 19:53 97 116/71 (86) 10/21/17 19:32 36.7 107 20 115/73 (87) 97 Nasal Cannula 2.0 10/21/17 18:38 98 16 97 Nasal Cannula 2.0 10/21/17 16:01 99 10/21/17 16:00 Nasal Cannula 2.0 10/21/17 15:56 95 20 115/76 (89) 96 Nasal Cannula 1.5 10/21/17 15:51 109 18 116/74 (88) 94 10/21/17 15:15 95 20 115/76 (89) 96 Nasal Cannula 2.0 10/21/17 14:45 36.2 100 18 115/71 (86) 97 Nasal Cannula 2.0 Physical Exam: General- sitting in chair, no acute distress Eyes- anicteric Neck- no JVD Lungs- diffuse mild wheezing, few scattered rhonchi Heart- irregular; no murmur or gallop appreciated Abdomen- + BS, soft, nontender Extremities- trace pretibial edema; no erythema or tenderness left medial ankle Neuro- alert . Laboratory Results: Last 24 Hours Test 10/21/17 00:47 10/21/17 05:48 10/21/17 06:48 10/21/17 11:30 Bedside Glucose 225 mg/dl 188 mg/dl 152 mg/dl White Blood Count 5.72 K/uL Red Blood Count 3.84 M/uL Hemoglobin 11.2 g/dL Hematocrit 34.9 % Mean Corpuscular Volume 90.9 fL Mean Corpuscular Hemoglobin 29.2 pg Mean Corpuscular Hemoglobin Concent 32.1 g/dl Platelet Count 157 K/uL Mean Platelet Volume 10.8 fL Neutrophils (%) (Auto) 90.6 % Lymphocytes (%) (Auto) 3.8 % Monocytes (%) (Auto) 5.4 % Eosinophils (%) (Auto) 0.0 % Basophils (%) (Auto) 0.0 % Neutrophils # (Auto) 5.18 K/uL Lymphocytes # (Auto) 0.22 K/uL Monocytes # (Auto) 0.31 K/uL Eosinophils # (Auto) 0.00 K/uL Basophils # (Auto) 0.00 K/uL RDW Standard Deviation 48.0 fL RDW Coefficient of Variation 14.6 % Immature Granulocyte % (Auto) 0.2 % Immature Granulocyte # (Auto) 0.01 K/uL Sodium Level 135 mmol/L Potassium Level 4.7 mmol/L Chloride Level 98 mmol/L Carbon Dioxide Level 28 mmol/L Anion Gap 9.0 mmol/L Blood Urea Nitrogen 46 mg/dl Creatinine 1.30 mg/dl Est Creatinine Clear Calc Drug Dose 75.3 ml/min Estimated GFR () 70.7 Estimated GFR (Non- 61.0 BUN/Creatinine Ratio 35.0 Random Glucose 165 mg/dl Calcium Level 8.9 mg/dl Phosphorus Level 2.9 mg/dl Magnesium Level 2.0 mg/dl Digoxin Level 1.3 ng/ml Test 10/21/17 18:11 Bedside Glucose 154 mg/dl Assessment & Plan SMALL CELL CARCINOMA OF LUNG Imaging by CT and PET scans demonstrated large mediastinal lymphadenopathy with extension into the left hilar region and extrinsic compression on the proximal esophagus. Biopsy demonstrated small cell carcinoma. Management per Medical Oncology and Radiation Oncology. Chemotherapy started 10/19 (carboplatin, etoposide, fosaprepitant, dexamethasone ). DYSPHAGIA Severe dysphagia to solids, liquids, meds due to extrinsic compression from mediastinal mass. NPO. Case discussed with GI and Medical Oncology. Esophageal stent placement would be challenging and could lead to complications. Medical Oncology suggests short-term nutritional support with TPN pending anticipated response to chemoradiation. Keep head elevated at all times. COUGH / HEMOPTYSIS Cough productive of green sputum for past few weeks. No fever. Probably aspirating, but no evidence of pneumonia (afebrile, no infiltrates on chest imaging). May have sinusitis or bronchitis. [place] prudent to resume antibiotic therapy in light of chemotherapy. Sputum C&S --> normal rao. Continue levofloxacin. Aspiration precautions. Keep head of bed elevated to minimize risk of aspiration. Cough became productive of bloody mucus. Differential diagnosis includes hemoptysis secondary to infection, malignancy, pulmonary embolism. Blood seems to be mixed with purulent sputum, so favor infection. Certainly at risk for pulmonary embolism, but hemoptysis not characteristic, CTA chest on admission negative for PE, and venous duplex left lower extremity negative for DVT. Holding enoxaparin. Cough / hemoptysis improved. CORONARY ARTERY DISEASE Chest pain probably due to malignancy. Troponin normal. Holding aspirin because of GI symptoms and hemoptysis. Continue metoprolol. ATRIAL FIBRILLATION (CHRONIC) Rate usually controlled on metoprolol and diltiazem. Converted to parenteral metoprolol due to severe dysphagia. Unable to swallow apixaban. Added IV digoxin for better rate control. Hold therapeutic dosing for enoxaparin due to hemoptysis. CHF Acute on chronic left ventricular diastolic heart failure. Receiving TPN + chemo. Watch exam, weights. Continue IV diuretics. HYPERTENSION Continue metoprolol as noted above. CHRONIC HYPOXIC RESPIRATORY FAILURE Continue oxygen. SLEEP APNEA Does not tolerate CPAP. DM TYPE 2 Expect fluctuating blood sugars due to acute illness, NPO status, anticipated TPN, steroids. Lantus / NovoLog per protocol. FBS this morning = 188. LEFT CALF PAIN Venous duplex 10/19 negative for DVT. LEFT ANKLE PAIN Suspect gout flare. Uric acid 10/19 14.9. Cannot take colchicine due to NPO status (may be potential issue with chemo as well). Cannot take NSAID's. Best option = steroids. Received IV methylprednisolone x 1. Also receiving dexamethasone with chemo. Pain / exam improved. VTE PROPHYLAXIS Unable to swallow apixaban. Transitioned to therapeutic dosing of SQ enoxaparin. Developed bloody sputum. SCD's. Ambulate. Try resuming enoxaparin at prophylactic dose tomorrow. DISPOSITION To be determined. Primary care follow-up with Dr. James. Hematology / Oncology follow-up with Drs. Olsen and Lorenza. . Consultants: GI Medical Oncology Radiation Oncology . Procedures: CTA chest cardiac monitoring IV meds PICC TPN chemotherapy . Current Inpatient Medications: Current Inpatient Medications Medications (Trade) Dose Ordered Sig/Elizabeth Route Start Time Stop Time Status Last Admin Dose Admin Nitroglycerin (Nitrostat Tab) 0.4 mg UD PRN SL 10/17/17 15:45 11/16/17 15:44 10/21/17 04:11 0.4 MG Glucose (Glucose 40% Gel) 15-30 GRAMS 15 GRAMS... UD PRN PO 11/22/17 15:45 11/16/17 15:44 Glucose (Glucose Chew Tab) 4-8 Tablets 4 Tabl... UD PRN PO 10/17/17 15:45 11/16/17 15:44 Dextrose (Dextrose 50% 50ML Syringe) 25-50ML OF 50% DW IV FOR... UD PRN IV 10/17/17 15:45 11/16/17 15:44 Glucagon (Glucagon Inj) 1 mg UD PRN SQ 10/17/17 15:45 11/16/17 15:44 Metoprolol Tartrate (Lopressor Iv) 5 mg Q6H IV. 10/17/17 20:00 11/16/17 19:59 10/21/17 20:17 5 MG Bisacodyl (Dulcolax Supp) 10 mg DAILY PRN [place] 10/17/17 20:30 11/16/17 20:29 Insulin Aspart (novoLOG ASPART) SLIDING SCALE IF C... Q6 SC 10/18/17 06:00 11/17/17 05:59 10/21/17 06:52 1 UNITS Ondansetron HCl (Zofran Inj) 4 mg Q6H PRN IV 10/18/17 02:15 11/17/17 02:14 10/21/17 02:10 4 MG Miscellaneous Information (Pharmacy Tpn/ Ppn Consult Active) 1 ea UD PRN N/A 10/20/17 09:00 11/19/17 08:59 Levofloxacin 750 mg/Prmx 150 ml @ 100 mls/hr Q24H IV 10/19/17 12:00 10/26/17 11:59 10/21/17 11:50 100 MLS/HR Dextrose 1,000 ml @ 0 mls/hr Q0M PRN IV 10/19/17 11:50 11/18/17 11:49 Dexamethasone Sodium Phosphate 4 mg/Syringe 1 ml @ 1 mls/min DAILY IV 10/20/17 08:00 11/19/17 07:59 10/21/17 09:12 1 MLS/MIN Morphine Sulfate (MoRPHine SULFATE INJ) 1 mg Q2H PRN IV 10/19/17 13:30 10/31/17 17:29 Morphine Sulfate (MoRPHine SULFATE INJ) 2 mg Q2H PRN IV 10/19/17 13:30 11/02/17 13:29 10/21/17 04:10 2 MG Furosemide 40 mg/ Syringe 4 ml @ 4 mls/min BID@0900,1500 IV 10/20/17 09:00 11/19/17 08:59 10/21/17 16:01 4 MLS/MIN Heparin Sodium (Porcine) (Heparin 10 Unit/ ml 5 ml Flush) 5 ml PRN PRN FLUSH 10/20/17 02:15 11/19/17 02:14 10/21/17 16:47 5 ML Fentanyl (Duragesic Patch) 25 mcg Q3D@0900 TD 10/20/17 09:30 11/03/17 09:29 10/20/17 09:33 25 MCG Miscellaneous (Fentanyl Patch Remove & Waste) 1 ea Q3D@0859 N/A 10/20/17 09:29 11/19/17 09:28 10/20/17 09:32 1 EA Miscellaneous Information (Check Fentanyl Patch Placement) 1 ea QS N/A 10/20/17 16:00 11/19/17 15:59 10/21/17 16:11 1 EA Ipratropium [place] (Atrovent 0.02% 0.5MG/2.5ML Neb) 0.5 mg QIDR INH 10/20/17 12:00 11/19/17 11:59 10/21/17 18:36 0.5 MG Levalbuterol (Xopenex 1.25MG/ 0.5ML Neb) 1.25 mg QIDR INH 10/20/17 12:00 11/19/17 11:59 10/21/17 18:36 1.25 MG Levalbuterol (Xopenex 0.63 Mg/ 3 Ml Neb) 0.63 mg Q2H PRN INH 10/20/17 09:00 11/19/17 08:59 Miscellaneous Information (Consult Glycemic Management Pharmacy) 1 ea UD PRN N/A 10/20/17 11:12 11/19/17 11:11 Insulin Glargine (Lantus Solostar Pen) 15 units BID SC 10/21/17 20:00 11/20/17 19:59 10/21/17 19:55 15 UNITS Nutrition (Parenteral) 0 ml @ 0 mls/hr TODAY@1600 IV 10/21/17 16:00 10/22/17 15:59 10/21/17 17:42 0 MLS/HR Digoxin 250 mcg/ Syringe 10 ml @ 2 mls/min DAILY@16 IV 10/21/17 16:00 11/20/17 15:59 10/21/17 16:01 2 MLS/MIN
[2017-10-22] VITALS (11 sets, daily range): BP systolic 95–122; BP diastolic 64–78; PULSE 85–109; TEMP 36.2–36.7; O2SAT 90–98
[2017-10-22] MEDS: INSULIN ASPART 100 UNITS/ML 3 ML PEN SC SCH ×4 (00:38→18:00)
[2017-10-22] MEDS: METOPROLOL TARTRATE 1 MG/ML VIAL IV. SCH ×4 (02:08→20:00)
[2017-10-22] MEDS: MoRPHine SULFATE 2 MG/ML CARP IV PRN ×2 (02:16→10:01)
[2017-10-22 06:52] LABS: COMPLETE YES; HEMATOCRIT 36.1 % (42-52); IG% 0.2 %; LYMPH % 4.4 %; LYMPH ABS # 0.25 K/uL (1.2-3.4); MEAN CELL VOLUME 90.9 fL (80-100); MEAN CORPUSCULAR HGB CONC 31.9 g/dl (32-36); MEAN PLATELET VOLUME 10.5 fL (7.4-10.4); MONO % 1.9 %; NEUT % 93.5 %; PLATELET COUNT 166 K/uL (130-400); RED BLOOD COUNT 3.97 M/uL (4.7-6.1); WHITE BLOOD COUNT 5.67 K/uL (4.8-10.8)
[2017-10-22] MEDS: LEVALBUTEROL 1.25MG/0.5ML NEB INH SCH ×4 (07:21→19:34)
[2017-10-22] MEDS: IPRATROPIUM BROMIDE NEB SOLN 0.02% 2.5 ML VIAL INH SCH ×4 (07:21→19:34)
[2017-10-22 07:28] LABS: CREATININE 1.15 mg/dl (0.60-1.40); POTASSIUM 4.6 mmol/L (3.5-5.1)
[2017-10-22 07:31] LABS: PHOSPHORUS 3.5 mg/dl (2.5-4.9)
[2017-10-22] MEDS ORDERED: ONDANSETRON IV SCH (08:30)
[2017-10-22] MEDS ORDERED: SODIUM CHLORIDE 0.9% IV SCH ×3 (08:30→09:30)
[2017-10-22] MEDS ORDERED: DEXAMETHASONE IV SCH (08:30)
[2017-10-22] MEDS ORDERED: FOSAPREPITANT DIMEGLUMINE INJ 150 MG in SODIUM CHLORIDE 0.9% 150ML 145 ML IV SCH (08:30)
[2017-10-22] MEDS: FUROSEMIDE INJ 40 MG in SYRINGE 0 ML IV SCH ×2 (08:50→15:22)
[2017-10-22] MEDS: DEXAMETHASONE INJ 4 MG in SYRINGE 0 ML IV SCH (08:50)
--- NOTE | 2017-10-22 08:51 | Radiation Oncology Consult ---
Radiation Oncology Consult Date / Reason Oct 22, 2017. Physicians Medical Oncologist: Dr. Britt/Dr. Blue Radiation Oncologist: Dr. Dav Baron Diagnosis (1) Small cell lung cancer Stage: lll (Limited stage) History of Present Illness I am seeing Mr. Glasgow in consultation at the request of Dr. Brigido Britt. ECOG PS: 2 Mr. Glasgow is a 57-year-old gentleman who initially presented with shortness of breath and significant weight loss over the last several months. The patient underwent a chest x-ray (reports available) and a CT of the chest on and a CT of the abdomen/pelvis on 09/24/2017 (reports unavailable) which revealed a large mediastinal mass (reports unavailable). The patient underwent a bronchoscopy on 10/04/2017 and biopsied subcarinal lymph node, station 7, and right paratracheal lymph node, station 4, which revealed metastatic small cell lung carcinoma. The patient underwent a PET/CT scan on which revealed: "a metabolically active large bulky mediastinal lymphadenopathy centered in the subcarinal and paraesophageal region with extension into the left hilar region. This demonstrates central necrosis and mass effect and nearby structures causing dilatation of the proximal esophagus. Findings are consistent with biopsy proven small cell carcinoma. Metabolically active 3.9 cm necrotic right upper paratracheal lymph node consistent with small cell carcinoma. Metabolically active 2.4 segment left lower lobe nodule suspicious for additional sites of disease. No evidence of metabolically active disease in the abdomen/pelvis." The patient was seen by Dr. Luis Enrique Olsen from medical oncology 10/17/2017. Dr. Olsen recommended the patient a direct admission due to his severe malnutrition and overall poor performance status. The patient was admitted to [facility] on 10/17/2017. The patient did have a CT chest angiograph completed on 10/17/2017 which revealed: "IMPRESSION: 1. Unremarkable CT angiogram of the thoracic aorta. 2. There is a large heterogeneous mass lesion in the mediastinum as above, likely related to the reported history of recently diagnosed lymphoma. 3. 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 4. Abnormal soft tissue tracking along the bronchovascular bundles in the lower lobes likely represents lymphomatous involvement. 5. Small to moderate pleural effusions with associated atelectasis. 6. Splenomegaly." The patient has been seen by Dr. Britt from medical oncology who is recommended consideration of chemotherapy with radiation therapy. The patient has received carboplatin/etoposide chemotherapy and is currently undergoing etoposide chemotherapy as part of his first cycle. We have been asked to evaluate the patient for consideration of radiation therapy. Currently, the patient continues to have some dyspnea at rest and exertional dyspnea. Additionally, the patient does have some dysphagia which has stabilized. He denies any other significant complaints. Pacemaker Hx Pacemaker: No Past History Past Medical/Surgical History: Atrial Fibrillation, Diabetes Type 2, Endocrine Disorder, Sleep Apnea, CHF, Hypertension, Kidney Disease Social History Smoking Status: Former Smoker Hx Tobacco Use In Past Year?: No Quit Date: Feb 28, 2004 Do You Dip or Chew Tobacco: No Hx Alcohol Use: No Hx Substance Use : No Allergies Coded Allergies: Penicillins (Verified Allergy, Intermediate, RASH, 07/28/16) PT HAD A RXN AND IT COULD NOT BE RULED OUT IF IT WAS THE PCN Home Medications Scheduled Apixaban (Eliquis), 5 MG PO BID Cholecalciferol (Vitamin D3 Super Strength), 2,000 INTER.UNIT PO DAILY Cyclobenzaprine HCl (Cyclobenzaprine HCl), 10 MG PO HS Diltiazem Hcl Ext Rel (Tiazac), 180 MG PO DAILY Dulaglutide (Trulicity), 0.75 MG INJ WK Fenofibrate (Fenofibrate), 145 MG PO DAILY Ferrous Sulfate (Ferrousul), 325 MG PO DAILY Furosemide (Furosemide), 80 MG PO BID Home O2 Therapy (Oxygen), 2 LITERS NA HS Levothyroxine Sodium (Levothyroxine Sodium), 112 MCG PO Q2D Lisinopril (Lisinopril), 5 MG PO DAILY Magnesium Oxide (Mg Supplement (Magnesium Oxide), 400 MG PO Q2D Metoprolol Succinate (Metoprolol Succinate ER), 100 MG PO DAILY Multiple Vitamin (Multivitamin), 1 TAB PO DAILY Potassium Ext Rel (Klor-Con), 1 DOSE PO BID Pravastatin Sodium (Pravastatin Sodium), 80 MG PO DAILY Scheduled PRN Eszopiclone (Eszopiclone), 1 MG PO HS PRN for Sleep Hydrocodone/Acetaminophen 7.5MG/325MG ([place] 7.5MG/325MG), 1 TAB PO Q4-6HRS PRN for Pain Metolazone (Zaroxolyn), 5 MG PO DAILY PRN for Fluid Retention Oxycodone Ir (Roxicodone Ir), 1-2 TAB PO Q4H PRN for Pain Review of Systems Ear/Hearing: Ear Side: Bilateral Hearing Ability: Hard of Hearing Hearing Aid: Bilateral Edema: Present?: Yes Location Body Site Modifier: Right Type: Pitting Degree: 1+ Pain Management Side: Right Pain Location: Chest Patient Preferred Pain Scale: 0 - 10 Pain Rating (0-10): 0 Pain Management Plan Currently on fentanyl transdermal 25 g. Continue with current pain management plan. Physical Exam Height: 5 (Feet) 10.00 (Inches) 177.8 (Centimeters) 1.7780 (Meters) Weight: 223 (Pounds) 1.7 (Ounces) 101.200 (Kilograms) 177467.000 (Grams) Date Time Temp Pulse Resp B/P (MAP) Pulse Ox O2 Delivery O2 Flow Rate FiO2 10/22/17 08:13 36.2 92 18 122/78 (93) 96 1.0 10/22/17 07:21 97 16 98 Nasal Cannula 2.0 10/22/17 04:40 36.4 91 20 116/73 (87) 95 Nasal Cannula 2.0 10/22/17 02:08 84 113/72 10/22/17 02:06 92 113/72 (86) 10/22/17 00:00 Nasal Cannula 2.0 10/21/17 23:59 36.4 97 20 113/73 (86) 93 Nasal Cannula 2.0 10/21/17 20:17 111 111/73 10/21/17 20:00 Nasal Cannula 2.0 10/21/17 19:53 97 116/71 (86) 10/21/17 19:32 36.7 107 20 115/73 (87) 97 Nasal Cannula 2.0 10/21/17 18:38 98 16 97 Nasal Cannula 2.0 10/21/17 16:01 99 10/21/17 16:00 Nasal Cannula 2.0 10/21/17 15:56 95 20 115/76 (89) 96 Nasal Cannula 1.5 10/21/17 15:51 109 18 116/74 (88) 94 10/21/17 15:15 95 20 115/76 (89) 96 Nasal Cannula 2.0 10/21/17 14:45 36.2 100 18 115/71 (86) 97 Nasal Cannula 2.0 10/21/17 14:22 90 16 97 Nasal Cannula 2.0 10/21/17 13:49 97 117/74 10/21/17 11:25 108 20 107/68 (81) Nasal Cannula 2.0 10/21/17 11:11 98 16 98 Nasal Cannula 2.0 10/21/17 09:12 89 112/68 10/21/17 09:11 89 112/68 (83) General Appearance: no apparent distress Head: normocephalic, atraumatic Eyes: normal inspection ENT: normal ENT inspection Neck: supple, no adenopathy Respiratory/Chest: chest non-tender, lungs clear, normal breath sounds, no respiratory distress Cardiovascular: regular rate, rhythm, no edema, no gallop, no JVD Abdomen/GI: normal bowel sounds, non tender, soft, no organomegaly Back: normal inspection, no CVA tenderness Extremities: normal inspection, no calf tenderness, normal capillary refill, no pedal edema Neurologic/Psych: hide buyer II-XII nml as tested, alert, oriented x 3 Skin: normal color, warm/dry, no rash Laboratory Labortaory Results: were reviewed, and no pertinent findings Pathology Pathology results: were reviewed Imaging Imaging studies: were reviewed Assessment & Recommendations Mr. Glasgow is a 57-year-old gentleman who presents with locally advanced small cell lung carcinoma involving the mediastinum and left lung. After reviewing the PET/CT scan with Dr. Britt, we both agreed the patient most likely has limited stage small cell lung carcinoma and have recommended up front chemotherapy and radiation therapy. The patient has already received chemotherapy with carboplatin and etoposide. We plan to initiate radiation therapy as soon as possible. We will bring the patient today down for CT simulation. We will expedite treatment planning as quickly as possible and treat the patient once the plan is finalized. The patient was in agreement with this plan. We have explained the indications, alternatives, benefits, risks and side effects of radiation therapy to the lung. We have explained the most common side effects which include but are not limited to skin erythema, skin break down , pulmonary fibrosis, adhesion development, radiation pneumonitis, rib fracture , heart failure and heart disease, esophagitis, development of fistula, fatigue and development of secondary malignancy. We have explained the CT simulation process and treatment planning. We explained what to expect before, during and after treatment on a regular basis. The patient understands and would be willing to consent to treatment. The patient had multiple questions which were answered to their full satisfaction. Thank you for allowing us to participate in the care of this patient. This chart was completed in part utilizing [employer] Speech Voice Recognition software. Attempts were made to minimize the grammatical errors, random word insertions, pronoun errors and incomplete sentences. Any formal questions or concerns about the content, text or information contained within the body of this dictation should be directly addressed to the provider for clarification. Dav Baron MD Department of Radiation Oncology [facility] Total Time In Consultation I spent 30 minutes examining and counseling the patient. I spent 15 minutes completing this note. DARKLIGHT INSPECTOR Copy To Brigido Britt D.O.; Mohsen Abdullahi M.D.; Shahzad Blue MD
[2017-10-22] MEDS: CHECK FENTANYL PATCH PLACEMENT SCH ×3 (08:52→16:00)
[2017-10-22] MEDS: INSULIN GLARGINE SOLOSTAR 100 UNITS/ML 3 ML PEN SC SCH ×2 (08:54→20:28)
[2017-10-22] MEDS ORDERED: CARBOPLATIN IV SCH (09:00)
[2017-10-22] MEDS ORDERED: ETOPOSIDE IV SCH (09:30)
--- NOTE | 2017-10-22 10:08 | Pharmacy Progress Note ---
Pharmacy Glycemic Short Note 2 Date of Service Oct 22, 2017. OUTPATIENT ANTIDIABETIC REGIMEN: * diet controlled ASSESSMENT: * Mr. Glasgow received 107 units of insulin yesterday and BSGs have remained stable - well controlled * BID Decadron reduced to daily decadron starting this AM * Dextrose in TPN to be increased to 300 g (up 50 g from yesterday) - titrating slowly on dextrose due to steroid changes and insulin requirements * I want to continue keeping the majority of glycemic control in the TPN as steroids increase need for tight carb coverage * My plan today will be to reduce basal insulin further to a stress of 1 and continue aggressive carb coverage in TPN but keep this to a maximum of wt based/ stress 3 carb coverage equivalent PLAN FOR INPATIENT GLYCEMIC CONTROL: * Reduce insulin in TPN to 60 units * Decrease Lantus to 10 units BID * Continue Novolog q6h * Goal 140-180 * CF 15 mg/dL/unit * Note that insulin requirements will drastically change if dexamethasone discontinued
--- NOTE | 2017-10-22 10:51 | Hematology/Oncology Prog Note ---
Hematology/Onc Progress Note Date of Service Oct 22, 2017. 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 10/17/17 20:00 11/16/17 19:59 10/22/17 08:51 5 MG Furosemide 40 mg/ Syringe 4 ml @ 4 mls/min BID17 IV 10/18/17 09:00 10/18/17 15:24 DC 10/18/17 08:33 4 MLS/MIN Fentanyl (Duragesic Patch) 12 mcg Q3D@2100 TD 10/17/17 21:00 10/20/17 08:46 DC 10/17/17 22:06 12 MCG Miscellaneous Information (Check Fentanyl Patch Placement) 1 ea QS N/A 10/18/17 00:00 10/20/17 08:46 DC 10/20/17 07:38 1 EA Insulin Aspart (novoLOG ASPART) SLIDING SCALE IF C... Q6 SC 10/18/17 06:00 11/17/17 05:59 10/22/17 00:38 1 UNITS Albuterol/ Ipratropium (Duoneb) 3 ml QIDR INH 10/18/17 08:00 10/20/17 08:48 DC 10/20/17 06:53 3 ML Levofloxacin 500 mg/Prmx 100 ml @ 100 mls/hr Q24H IV 10/18/17 00:00 10/18/17 15:24 DC 10/18/17 00:20 100 MLS/HR Ondansetron HCl (Zofran Inj) 4 mg STK-MED ONCE .ROUTE 10/18/17 01:33 10/18/17 01:34 DC 10/18/17 01:42 4 MG Ondansetron HCl (Zofran Inj) 4 mg Q6H PRN IV 10/18/17 02:15 11/17/17 02:14 10/21/17 02:10 4 MG Enoxaparin Sodium (Lovenox Inj) 40 mg NOW ONCE SQ 10/18/17 15:30 10/18/17 16:22 DC 10/18/17 17:43 40 MG Potassium Chloride/Dextrose/ Sod Cl 1,000 ml @ 125 mls/hr Q8H IV 10/18/17 17:00 10/19/17 10:31 DC 10/19/17 08:06 125 MLS/HR Furosemide 40 mg/ Syringe 4 ml @ 4 mls/min NOW ONCE IV 10/19/17 09:30 10/19/17 09:31 DC 10/19/17 09:57 4 MLS/MIN Levofloxacin 750 mg/Prmx 150 ml @ 100 mls/hr Q24H IV 10/19/17 12:00 10/26/17 11:59 10/21/17 11:50 100 MLS/HR Methylprednisolone Sodium Succinate 40 mg/Syringe 0.64 ml @ 1.5 mls/min NOW ONCE IV 10/19/17 11:45 10/19/17 11:46 DC 10/19/17 11:42 1.5 MLS/MIN Enoxaparin Sodium (Lovenox Inj) 100 mg Q12 SQ 10/19/17 21:00 10/20/17 08:22 DC 10/19/17 21:13 100 MG Nutrition (Parenteral) 0 ml @ 0 mls/hr TODAY@1600 IV 10/19/17 16:00 10/20/17 15:59 DC 10/19/17 16:03 0 MLS/HR Dexamethasone Sodium Phosphate 4 mg/Syringe 1 ml @ 1 mls/min DAILY IV 10/20/17 08:00 11/19/17 07:59 10/22/17 08:50 1 MLS/MIN Morphine Sulfate (MoRPHine SULFATE INJ) 2 mg Q2H PRN IV 10/19/17 13:30 11/02/17 13:29 10/22/17 10:01 2 MG Ondansetron HCl 16 mg/ Dexamethasone Sodium Phosphate 12 mg/Sodium Chloride 59.2 ml @ 236.8 mls/ hr TODAY@1800 IV 10/19/17 18:00 10/19/17 20:00 DC 10/19/17 18:15 236.8 MLS/HR Fosaprepitant 150 mg/Sodium Chloride 150 ml @ 300 mls/hr TODAY@1800 IV 10/19/17 18:00 10/19/17 20:00 DC 10/19/17 18:15 300 MLS/HR Carboplatin 550 mg/Sodium Chloride 305 ml @ 610 mls/hr TODAY@1830 IV 10/19/17 18:30 10/19/17 20:30 DC 10/19/17 19:09 610 MLS/HR Etoposide 175 mg/ Sodium Chloride 558.75 ml @ 558.75 mls/hr TODAY@1900 IV 10/19/17 19:00 10/19/17 21:00 DC 10/19/17 20:20 558.75 MLS/HR Etoposide 175 mg/ Sodium Chloride 558.75 ml @ 558.75 mls/hr DAILY@1830 IV 10/20/17 18:30 10/21/17 15:29 DC 10/21/17 14:45 558.75 MLS/HR Ondansetron HCl 24 mg/ Dexamethasone Sodium Phosphate 4 mg/Sodium Chloride 63 ml @ 236.8 mls/ hr TODAY@1800 IV 10/20/17 18:00 10/21/17 14:16 DC 10/21/17 14:04 236.8 MLS/HR Furosemide 40 mg/ Syringe 4 ml @ 4 mls/min NOW ONCE IV 10/19/17 19:00 10/19/17 19:01 DC 10/19/17 21:11 4 MLS/MIN Furosemide 40 mg/ Syringe 4 ml @ 4 mls/min BID@0900,1500 IV 10/20/17 09:00 11/19/17 08:59 10/22/17 08:50 4 MLS/MIN Digoxin 250 mcg/ Syringe 10 ml @ 2 mls/min TODAY@2115 IV 10/19/17 21:15 10/19/17 21:19 DC 10/19/17 21:26 2 MLS/MIN Heparin Sodium (Porcine) (Heparin 10 Unit/ ml 5 ml Flush) 5 ml PRN PRN FLUSH 10/20/17 02:15 11/19/17 02:14 10/21/17 16:47 5 ML Insulin Glargine (Lantus Solostar Pen) 10 units NOW ONCE SC 10/20/17 08:00 10/20/17 08:01 DC 10/20/17 08:48 10 UNITS Fentanyl (Duragesic Patch) 25 mcg Q3D@0900 TD 10/20/17 09:30 11/03/17 09:29 10/20/17 09:33 25 MCG Miscellaneous (Fentanyl Patch Remove & Waste) 1 ea Q3D@0859 N/A 10/20/17 09:29 11/19/17 09:28 10/20/17 09:32 1 EA Miscellaneous Information (Check Fentanyl Patch Placement) 1 ea QS N/A 10/20/17 16:00 11/19/17 15:59 10/22/17 08:52 1 EA Digoxin 250 mcg/ Syringe 10 ml @ 2 mls/min 0900 ONCE IV 10/20/17 09:00 10/20/17 09:04 DC 10/20/17 09:23 2 MLS/MIN Digoxin 250 mcg/ Syringe 10 ml @ 2 mls/min TODAY@2100 ONCE IV 10/20/17 21:00 10/20/17 21:04 DC 10/20/17 20:10 2 MLS/MIN Ipratropium [place] (Atrovent 0.02% 0.5MG/2.5ML Neb) 0.5 mg QIDR INH 10/20/17 12:00 11/19/17 11:59 10/22/17 07:21 0.5 MG Levalbuterol (Xopenex 1.25MG/ 0.5ML Neb) 1.25 mg QIDR INH 10/20/17 12:00 11/19/17 11:59 10/22/17 07:21 1.25 MG Nutrition (Parenteral) 0 ml @ 0 mls/hr TODAY@1600 IV 10/20/17 16:00 10/21/17 15:59 DC 10/20/17 16:25 0 MLS/HR Insulin Glargine (Lantus Solostar Pen) 15 units ONE ONCE SC 10/20/17 13:30 10/20/17 13:31 DC 10/20/17 13:35 15 UNITS Insulin Glargine (Lantus Solostar Pen) SEE PROTOCOL TEXT BID SC 10/20/17 20:00 10/21/17 07:42 DC 10/20/17 20:17 25 UNITS Insulin Glargine (Lantus Solostar Pen) 15 units BID SC 10/21/17 20:00 10/22/17 09:53 DC 10/22/17 08:54 15 UNITS Insulin Glargine (Lantus Solostar Pen) 20 units 0800 ONCE SC 10/21/17 08:00 10/21/17 08:01 DC 10/21/17 09:27 20 UNITS Nutrition (Parenteral) 0 ml @ 0 mls/hr TODAY@1600 IV 10/21/17 16:00 10/22/17 15:59 10/21/17 17:42 0 MLS/HR Digoxin 250 mcg/ Syringe 10 ml @ 2 mls/min DAILY@16 IV 10/21/17 16:00 11/20/17 15:59 10/21/17 16:01 2 MLS/MIN Subjective Received [employer]-16 yesterday and continues to do well. He states he has some mild nausea but is comfortable now. He is being seen in radiation therapy this morning Review of Systems: Constitutional: Negative for night sweats, or fever Eyes: Negative for event change of vision ENT: Negative for epistaxis, nasal discharge, sore throat, or deafness Cardiovascular: Negative for worsening chest pain, palpitations, dizziness, diaphoresis Respiratory: Negative for new shortness of breath,hemoptysis, or purulent cough Gastrointestinal: Negative for diarrhea, hematemesis, melena, significant nausea, vomiting, or dyspepsia, Dysphagia continues. Integumentary (skin): Negative for rash or jaundice discoloration Genitourinary: Negative for urinary frequency, hematuria, or dysuria Neurological: Negative for weakness, seizure activity, headache, or dizziness Lymphatic/Hematologic: Negative for petechiae, bleeding or new adenopathy Musculoskeletal: Negative for new joint or back pain Allergic/Immunologic: Negative for unusual rash or pruritis. Vital Signs Vital Signs Past 12 Hours Date Time Temp Pulse Resp B/P (MAP) Pulse Ox O2 Delivery O2 Flow Rate FiO2 10/22/17 08:51 92 122/78 10/22/17 08:13 36.2 92 18 122/78 (93) 96 1.0 10/22/17 07:21 97 16 98 Nasal Cannula 2.0 10/22/17 04:40 36.4 91 20 116/73 (87) 95 Nasal Cannula 2.0 10/22/17 02:08 84 113/72 10/22/17 02:06 92 113/72 (86) 10/22/17 00:00 Nasal Cannula 2.0 10/21/17 23:59 36.4 97 20 113/73 (86) 93 Nasal Cannula 2.0 Physical Exam Constitutional: vitals are stable. Eyes: Eyes are DANG EOMI without conjuctival erythema or icterus. ENT: External examination was negative for masses. Neck: Negative for masses or palpable thyromegaly Respiratory: Lung sounds were generally clear bilaterally Cardiovascular: Heart was IRRR without significant murmur, gallops aoe rubs Gastrointestinal: No palpable hepatic or splenomegaly. The abdomen was soft with normal bowel sounds. Lymphatic system: there was no palpable peripheral lymphadenopathy Musculoskeletal System: The musculoskeletal system seemed concordant with age. Skin: The skin was negative for jaundice. Neurologic exam: The exam was negative for any focal findings. Deep tendon reflexes were equal and symmetrical. Psychiatric exam: Was essentially negative with normal mood and effect. Laboratory Last 24 Hours Test 10/21/17 11:30 10/21/17 18:11 10/22/17 00:26 10/22/17 05:46 Bedside Glucose 152 mg/dl 154 mg/dl 181 mg/dl 122 mg/dl Test 10/22/17 06:03 10/22/17 07:54 White Blood Count 5.67 K/uL Red Blood Count 3.97 M/uL Hemoglobin 11.5 g/dL Hematocrit 36.1 % Mean Corpuscular Volume 90.9 fL Mean Corpuscular Hemoglobin 29.0 pg Mean Corpuscular Hemoglobin Concent 31.9 g/dl Platelet Count 166 K/uL Mean Platelet Volume 10.5 fL Neutrophils (%) (Auto) 93.5 % Lymphocytes (%) (Auto) 4.4 % Monocytes (%) (Auto) 1.9 % Eosinophils (%) (Auto) 0.0 % Basophils (%) (Auto) 0.0 % Neutrophils # (Auto) 5.30 K/uL Lymphocytes # (Auto) 0.25 K/uL Monocytes # (Auto) 0.11 K/uL Eosinophils # (Auto) 0.00 K/uL Basophils # (Auto) 0.00 K/uL RDW Standard Deviation 48.6 fL RDW Coefficient of Variation 14.7 % Immature Granulocyte % (Auto) 0.2 % Immature Granulocyte # (Auto) 0.01 K/uL Sodium Level 133 mmol/L Potassium Level 4.6 mmol/L Chloride Level 98 mmol/L Carbon Dioxide Level 25 mmol/L Anion Gap 10.0 mmol/L Blood Urea Nitrogen 51 mg/dl Creatinine 1.15 mg/dl Est Creatinine Clear Calc Drug Dose 85.5 ml/min Estimated GFR () 82.0 Estimated GFR (Non- 70.7 BUN/Creatinine Ratio 44.0 Random Glucose 104 mg/dl Calcium Level 9.0 mg/dl Phosphorus Level 3.5 mg/dl Magnesium Level 2.0 mg/dl Bedside Glucose 131 mg/dl Assessment & Plan Small cell lung carcinoma with massive mediastinal mass. It is difficult to be certain of his disease staging. PET scan is reviewed and left lung nodule is noted with of course the major mediastinal mass and no disease elsewhere. I believe it is fair to approach and then has having a limited stage problem. TPN ongoing. Received day #3 etoposide yesterday. Tolerated chemotherapy well. Next systemic therapy will be in 3 weeks. Radiation therapy to mediastinal mass is about to begin.
[2017-10-22] MEDS: LEVOFLOXACIN / D5W 750 MG in PREMIXED IN D5W 150 ML IV SCH (12:07)
[2017-10-22] MEDS ORDERED: CUSTOM CENTRAL PN 1 BAG IV SCH (16:00)
[2017-10-22] MEDS: DIGOXIN IV 250 MCG in SYRINGE 9 ML IV SCH (16:37)
--- NOTE | 2017-10-22 23:57 | Progress Note ---
Medicine Progress Note Date & Time of Visit: Oct 22, 2017 at 11:50 . Subjective Anterior chest pain somewhat better. Cough improved. No hemoptysis since yesterday. Swallowing clear liquids without difficulty. No nausea or vomiting. No diarrhea. Left ankle pain resolved. . Objective Last 8 Hrs Date Time Temp Pulse Resp B/P (MAP) Pulse Ox O2 Delivery O2 Flow Rate FiO2 10/22/17 23:35 36.3 92 20 107/68 (81) 95 Nasal Cannula 2.0 10/22/17 20:00 102 95/64 10/22/17 19:41 36.4 102 16 95/64 (74) 96 Nasal Cannula 1.0 10/22/17 19:36 92 16 97 Nasal Cannula 2.0 10/22/17 16:37 96 Physical Exam: General- sitting in chair, no distress Eyes- anicteric Neck- no JVD Lungs- diffuse mild wheezing Heart- irregular; no murmur or gallop appreciated Abdomen- + BS, soft, nontender Extremities- trace pretibial edema Neuro- alert . Laboratory Results: Last 24 Hours Test 10/22/17 00:26 10/22/17 05:46 10/22/17 06:03 10/22/17 07:54 Bedside Glucose 181 mg/dl 122 mg/dl 131 mg/dl White Blood Count 5.67 K/uL Red Blood Count 3.97 M/uL Hemoglobin 11.5 g/dL Hematocrit 36.1 % Mean Corpuscular Volume 90.9 fL Mean Corpuscular Hemoglobin 29.0 pg Mean Corpuscular Hemoglobin Concent 31.9 g/dl Platelet Count 166 K/uL Mean Platelet Volume 10.5 fL Neutrophils (%) (Auto) 93.5 % Lymphocytes (%) (Auto) 4.4 % Monocytes (%) (Auto) 1.9 % Eosinophils (%) (Auto) 0.0 % Basophils (%) (Auto) 0.0 % Neutrophils # (Auto) 5.30 K/uL Lymphocytes # (Auto) 0.25 K/uL Monocytes # (Auto) 0.11 K/uL Eosinophils # (Auto) 0.00 K/uL Basophils # (Auto) 0.00 K/uL RDW Standard Deviation 48.6 fL RDW Coefficient of Variation 14.7 % Immature Granulocyte % (Auto) 0.2 % Immature Granulocyte # (Auto) 0.01 K/uL Sodium Level 133 mmol/L Potassium Level 4.6 mmol/L Chloride Level 98 mmol/L Carbon Dioxide Level 25 mmol/L Anion Gap 10.0 mmol/L Blood Urea Nitrogen 51 mg/dl Creatinine 1.15 mg/dl Est Creatinine Clear Calc Drug Dose 85.5 ml/min Estimated GFR () 82.0 Estimated GFR (Non- 70.7 BUN/Creatinine Ratio 44.0 Random Glucose 104 mg/dl Calcium Level 9.0 mg/dl Phosphorus Level 3.5 mg/dl Magnesium Level 2.0 mg/dl Test 10/22/17 11:36 10/22/17 18:16 Bedside Glucose 79 mg/dl 174 mg/dl Assessment & Plan SMALL CELL CARCINOMA OF LUNG Imaging by CT and PET scans demonstrated large mediastinal lymphadenopathy with extension into the left hilar region and extrinsic compression on the proximal esophagus. Biopsy demonstrated small cell carcinoma. Management per Medical Oncology and Radiation Oncology. Received chemotherapy 10/19 - 10/21. (carboplatin, etoposide, fosaprepitant, dexamethasone). Radiation therapy being initiated. DYSPHAGIA Severe dysphagia to solids, liquids, meds due to extrinsic compression from mediastinal mass. NPO. Case discussed with GI and Medical Oncology. Esophageal stent placement would be challenging and could lead to complications. Medical Oncology suggests short-term nutritional support with TPN pending anticipated response to chemoradiation. Keep head elevated at all times. Tolerating thin liquids. Advance diet as tolerated with caution. COUGH / HEMOPTYSIS Cough productive of green sputum for past few weeks. No fever. Probably aspirating, but no evidence of pneumonia (afebrile, no infiltrates on chest imaging). May have sinusitis or bronchitis. [place] prudent to resume antibiotic therapy in light of chemotherapy. Sputum C&S --> normal rao. Continue levofloxacin. Aspiration precautions. Keep head of bed elevated to minimize risk of aspiration. Cough became productive of bloody mucus. Differential diagnosis includes hemoptysis secondary to infection, malignancy, pulmonary embolism. Blood seems to be mixed with purulent sputum, so favor infection. Certainly at risk for pulmonary embolism, but hemoptysis not characteristic, CTA chest on admission negative for PE, and venous duplex left lower extremity negative for DVT. Held enoxaparin. No further hemoptysis. Cough improved. CORONARY ARTERY DISEASE Chest pain probably due to malignancy. Troponin normal. Holding aspirin because of GI symptoms and hemoptysis. Continue metoprolol. ATRIAL FIBRILLATION (CHRONIC) Rate usually controlled on metoprolol and diltiazem. Converted to parenteral metoprolol due to severe dysphagia. Unable to swallow apixaban. Added IV digoxin for better rate control. Held therapeutic dosing for enoxaparin due to hemoptysis; resume as able. CHF Acute on chronic left ventricular diastolic heart failure. Receiving TPN + chemo. Watch exam, weights. Continue IV diuretics. HYPERTENSION Continue metoprolol as noted above. CHRONIC HYPOXIC RESPIRATORY FAILURE Continue oxygen. SLEEP APNEA Does not tolerate CPAP. DM TYPE 2 Expect fluctuating blood sugars due to acute illness, NPO status, anticipated TPN, steroids. Pharmacy consulted for glycemic management. Lantus / NovoLog per protocol + insulin in TPN. FBS this morning = 131. LEFT CALF PAIN Venous duplex 10/19 negative for DVT. LEFT ANKLE PAIN Suspect gout flare. Uric acid 10/19 14.9. Cannot take colchicine due to NPO status (may be potential issue with chemo as well). Cannot take NSAID's. Best option = steroids. Received IV methylprednisolone x 1 and dexamethasone with chemo x 3. Pain / exam improved. Start allopurinol (1) after current flare and (2) when able to swallow meds. VTE PROPHYLAXIS Unable to swallow apixaban. Transitioned to therapeutic dosing of SQ enoxaparin. Developed bloody sputum and enoxaparin held. SCD's. Ambulate. Resume enoxaparin at prophylactic dose tomorrow. DISPOSITION To be determined. Primary care follow-up with Dr. James. Hematology / Oncology follow-up with Drs. Olsen and Lorenza. . Consultants: GI Medical Oncology Radiation Oncology . Procedures: CTA chest cardiac monitoring IV meds PICC TPN chemotherapy . Current Inpatient Medications: Current Inpatient Medications Medications (Trade) Dose Ordered Sig/Elizabeth Route Start Time Stop Time Status Last Admin Dose Admin Nitroglycerin (Nitrostat Tab) 0.4 mg UD PRN SL 10/17/17 15:45 11/16/17 15:44 10/21/17 04:11 0.4 MG Glucose (Glucose 40% Gel) 15-30 GRAMS 15 GRAMS... UD PRN PO 10/17/17 15:45 11/16/17 15:44 Glucose (Glucose Chew Tab) 4-8 Tablets 4 Tabl... UD PRN PO 10/17/17 15:45 11/16/17 15:44 Dextrose (Dextrose 50% 50ML Syringe) 25-50ML OF 50% DW IV FOR... UD PRN IV 10/17/17 15:45 11/16/17 15:44 Glucagon (Glucagon Inj) 1 mg UD PRN SQ 10/17/17 15:45 11/16/17 15:44 Metoprolol Tartrate (Lopressor Iv) 5 mg Q6H IV. 10/17/17 20:00 11/16/17 19:59 10/22/17 13:47 5 MG Bisacodyl (Dulcolax Supp) 10 mg DAILY PRN OK 10/17/17 20:30 11/16/17 20:29 Insulin Aspart (novoLOG ASPART) SLIDING SCALE IF C... Q6 SC 10/18/17 06:00 11/17/17 05:59 10/22/17 00:38 1 UNITS Ondansetron HCl (Zofran Inj) 4 mg Q6H PRN IV 10/18/17 02:15 11/17/17 02:14 10/21/17 02:10 4 MG Miscellaneous Information (Pharmacy Tpn/ Ppn Consult Active) 1 ea UD PRN N/A 10/20/17 09:00 11/19/17 08:59 Levofloxacin 750 mg/Prmx 150 ml @ 100 mls/hr Q24H IV 10/19/17 12:00 10/26/17 11:59 10/22/17 12:07 100 MLS/HR Dextrose 1,000 ml @ 0 mls/hr Q0M PRN IV 10/19/17 11:50 11/18/17 11:49 Dexamethasone Sodium Phosphate 4 mg/Syringe 1 ml @ 1 mls/min DAILY IV 10/20/17 08:00 11/19/17 07:59 10/22/17 08:50 1 MLS/MIN Morphine Sulfate (MoRPHine SULFATE INJ) 1 mg Q2H PRN IV 10/19/17 13:30 10/31/17 17:29 Morphine Sulfate (MoRPHine SULFATE INJ) 2 mg Q2H PRN IV 10/19/17 13:30 11/02/17 13:29 10/22/17 10:01 2 MG Furosemide 40 mg/ Syringe 4 ml @ 4 mls/min BID@0900,1500 IV 10/20/17 09:00 11/19/17 08:59 10/22/17 15:22 4 MLS/MIN Heparin Sodium (Porcine) (Heparin 10 Unit/ ml 5 ml Flush) 5 ml PRN PRN FLUSH 10/20/17 02:15 11/19/17 02:14 10/22/17 13:48 5 ML Fentanyl (Duragesic Patch) 25 mcg Q3D@0900 TD 10/20/17 09:30 11/03/17 09:29 10/20/17 09:33 25 MCG Miscellaneous (Fentanyl Patch Remove & Waste) 1 ea Q3D@0859 N/A 10/20/17 09:29 11/19/17 09:28 10/20/17 09:32 1 EA Miscellaneous Information (Check Fentanyl Patch Placement) 1 ea QS N/A 10/20/17 16:00 11/19/17 15:59 10/22/17 16:00 1 EA Ipratropium [place] (Atrovent 0.02% 0.5MG/2.5ML Neb) 0.5 mg QIDR INH 10/20/17 12:00 11/19/17 11:59 10/22/17 19:34 0.5 MG Levalbuterol (Xopenex 1.25MG/ 0.5ML Neb) 1.25 mg QIDR INH 10/20/17 12:00 11/19/17 11:59 10/22/17 19:34 1.25 MG Levalbuterol (Xopenex 0.63 Mg/ 3 Ml Neb) 0.63 mg Q2H PRN INH 10/20/17 09:00 11/19/17 08:59 Miscellaneous Information (Consult Glycemic Management Pharmacy) 1 ea UD PRN N/A 10/20/17 11:12 11/19/17 11:11 Digoxin 250 mcg/ Syringe 10 ml @ 2 mls/min DAILY@16 IV 10/21/17 16:00 11/20/17 15:59 10/22/17 16:37 2 MLS/MIN Insulin Glargine (Lantus Solostar Pen) 10 units BID SC 10/22/17 20:00 11/21/17 19:59 10/22/17 20:28 10 UNITS Nutrition (Parenteral) 0 ml @ 0 mls/hr TODAY@1600 IV 10/22/17 16:00 10/23/17 15:59 10/22/17 16:35 0 MLS/HR
[2017-10-23] VITALS (13 sets, daily range): BP systolic 106–124; BP diastolic 72–78; PULSE 86–100; TEMP 36.2–36.6; O2SAT 94–99
[2017-10-23] MEDS: INSULIN ASPART 100 UNITS/ML 3 ML PEN SC SCH ×5 (00:07→19:26)
[2017-10-23] MEDS: CHECK FENTANYL PATCH PLACEMENT SCH ×4 (00:10→23:02)
[2017-10-23] MEDS: METOPROLOL TARTRATE 1 MG/ML VIAL IV. SCH ×4 (02:06→19:25)
[2017-10-23] MEDS: MoRPHine SULFATE 2 MG/ML CARP IV PRN (02:14)
[2017-10-23 07:22] LABS: BUN/CREATININE RATIO 50.6 (10-20); CALCIUM 8.6 mg/dl (8.5-10.1); CREATININE 1.04 mg/dl (0.60-1.40); PHOSPHORUS 2.8 mg/dl (2.5-4.9); POTASSIUM 3.9 mmol/L (3.5-5.1)
[2017-10-23] MEDS: LEVALBUTEROL 1.25MG/0.5ML NEB INH SCH ×4 (07:47→18:59)
[2017-10-23] MEDS: IPRATROPIUM BROMIDE NEB SOLN 0.02% 2.5 ML VIAL INH SCH ×4 (07:47→18:59)
[2017-10-23] MEDS: DEXAMETHASONE INJ 4 MG in SYRINGE 0 ML IV SCH (07:47)
[2017-10-23] MEDS: INSULIN GLARGINE SOLOSTAR 100 UNITS/ML 3 ML PEN SC SCH ×2 (07:52→19:25)
[2017-10-23] MEDS: ENOXAPARIN 40 MG/0.4 ML SYR SQ SCH (07:53)
[2017-10-23] MEDS ORDERED: ONDANSETRON 8 MG TAB PO SCH (08:00)
[2017-10-23] MEDS ORDERED: DEXAMETHASONE 4 MG TAB PO SCH (08:00)
[2017-10-23] MEDS: FENTANYL PATCH REMOVE & WASTE SCH (08:05)
[2017-10-23] MEDS: FENTANYL 25 MCG/HR TDSY TD SCH (08:07)
[2017-10-23] MEDS: FUROSEMIDE INJ 40 MG in SYRINGE 0 ML IV SCH ×2 (08:08→14:44)
[2017-10-23] MEDS ORDERED: SODIUM CHLORIDE 0.9% IV SCH (09:00)
[2017-10-23] MEDS ORDERED: ETOPOSIDE IV SCH (09:00)
--- NOTE | 2017-10-23 11:24 | Pharmacy Progress Note ---
Pharmacy Glycemic Short Note 2 Date of Service Oct 23, 2017. OUTPATIENT ANTIDIABETIC REGIMEN: * Diet controlled * A1c 6.3% 10/18/17 ASSESSMENT: * 57 yr old male with hyperglycemia due to IV steroids and administration of TPN * Dextrose in TPN was titrated to goal of 350 grams per day on 10/23 * Dexamethasone IV was decreased from 4 mg BID to daily on 10/22 - expect to see the effect of this change today. * Pt received 88 units of insulin over the past 24 hours with BSGs ranging from 79 to 216 mg/dL. * Will increase regular insulin in TPN to cover additional dextrose and increase Lantus to scale (10-15 units) since fasting BSG is elevated today. PLAN FOR INPATIENT GLYCEMIC CONTROL: * Basal insulin - increase * Lantus 10-15 units SQ BID * 10 units for BSG less than 180 * 15 units for BSG 180 or more * Bolus insulin * NovoLog per scale Q6hrs * Goal Range: Low 140 mg/dL - High 180 mg/dL * Correction Factor: 15 mg/dL/unit * 70 units of regular insulin in TPN * to cover 350 grams of dextrose * equal to carb ratio of 5
[2017-10-23] MEDS: LEVOFLOXACIN / D5W 750 MG in PREMIXED IN D5W 150 ML IV SCH (12:27)
--- NOTE | 2017-10-23 13:15 | Progress Note ---
Internal Med Progress Note Date of Service: Oct 23, 2017. Provider Documentation: SUBJECTIVE: The patient was seen and examined OOB in a chair Generally weak but denies any other complaints OBJECTIVE: Vital Signs-as noted below Exam: General-No distress at rest Eyes-normal ENT-normal Neck-supple Lungs-Clear to auscultate bilaterally with decreased breath sound Heart-Regular,no murmur appreciated Abdomen-Benign,no masses Extremities-1 to 2 + edema bilaterally with chronic skin changes Neuro-AAOx3 Deaf and generally weak Lab data as noted below. ASSESSMENT & PLAN: SMALL CELL CARCINOMA OF LUNG Imaging by CT and PET scans demonstrated large mediastinal lymphadenopathy with extension into the left hilar region and extrinsic compression on the proximal esophagus. Biopsy demonstrated small cell carcinoma. Management per Medical Oncology and Radiation Oncology. Received chemotherapy 10/19 - 10/21. (carboplatin, etoposide, fosaprepitant, dexamethasone). Appreciate Oncology input Radiation Oncology will start Radiation soon Patient remains stable COUGH / HEMOPTYSIS Cough productive of green sputum for past few weeks. Probably aspirating, but no evidence of pneumonia (afebrile, no infiltrates on chest imaging). Sputum C&S --> normal rao. Continue Levofloxacin for probable Bronchitis/pneumonia. Aspiration precautions. Keep head of bed elevated to minimize risk of aspiration. Differential diagnosis includes hemoptysis secondary to infection, malignancy, pulmonary embolism. Blood seems to be mixed with purulent sputum, so favor infection. Certainly at risk for pulmonary embolism, but hemoptysis not characteristic, CTA chest on admission negative for PE, and venous duplex left lower extremity negative for DVT. Held enoxaparin due to Hemoptysis No further hemoptysis. Cough improved. DYSPHAGIA Severe dysphagia to solids, liquids, meds due to extrinsic compression from mediastinal mass. Case discussed with GI and Medical Oncology. Esophageal stent placement would be challenging and could lead to complications. Started on short-term nutritional support with TPN pending anticipated response to chemoradiation. Keep head elevated at all times. Tolerating thin liquids orally . Advance diet as tolerated with caution. CORONARY ARTERY DISEASE Chest pain probably due to malignancy. Troponin normal. Holding aspirin because of GI symptoms and hemoptysis. Continue metoprolol. ATRIAL FIBRILLATION (CHRONIC) Rate usually controlled on metoprolol and diltiazem. Converted to parenteral metoprolol due to severe dysphagia. Unable to swallow apixaban. Added IV digoxin for better rate control. Held therapeutic dosing for enoxaparin due to hemoptysis; resume as able. CHF Acute on chronic left ventricular diastolic heart failure. Receiving TPN + chemo. Watch exam, weights. Continue IV diuretics for now No overt CHF HTN,Chronic Respiratory Failure and Sleep Apnea Remains stable DM TYPE 2 Expect fluctuating blood sugars due to acute illness, NPO status, anticipated TPN, steroids. Pharmacy consulted for glycemic management. Lantus / NovoLog per protocol + insulin in TPN. FBS this morning = 131. LEFT ANKLE PAIN Suspect gout flare. Uric acid 10/19 14.9. Received IV methylprednisolone x 1 and dexamethasone with chemo x 3. Pain / exam improved. Venous duplex 10/19 negative for DVT. Start allopurinol (1) after current flare and (2) when able to swallow meds. VTE PROPHYLAXIS Unable to swallow apixaban. Transitioned to therapeutic dosing of SQ enoxaparin. Developed bloody sputum and enoxaparin held. SCD's. Ambulate. Resume enoxaparin prophylactic dose DISPOSITION To be determined. Primary care follow-up with Dr. James. Hematology / Oncology follow-up with Drs. Olsen and Lorenza. . Consultants: GI Medical Oncology Radiation Oncology . Procedures: CTA chest cardiac monitoring IV meds PICC TPN chemotherapy Vital Signs: Date Time Temp Pulse Resp B/P (MAP) Pulse Ox O2 Delivery O2 Flow Rate FiO2 10/23/17 11:49 36.3 98 18 115/72 (86) 98 Nasal Cannula 1.5 10/23/17 11:31 100 18 97 Nasal Cannula 2.0 10/23/17 08:15 96 Nasal Cannula 2.0 10/23/17 07:51 90 16 96 Nasal Cannula 2.0 10/23/17 07:51 94 119/78 10/23/17 07:38 36.3 88 20 106/73 (84) 94 Nasal Cannula 1.5 10/23/17 02:50 36.6 93 17 107/73 (84) 98 Nasal Cannula 2.0 Humidified Oxygen 10/23/17 02:06 82 113/70 10/23/17 00:00 96 Nasal Cannula 2.0 10/22/17 23:35 36.3 92 20 107/68 (81) 95 Nasal Cannula 2.0 10/22/17 20:00 102 95/64 10/22/17 19:41 36.4 102 16 95/64 (74) 96 Nasal Cannula 1.0 10/22/17 19:36 92 16 97 Nasal Cannula 2.0 10/22/17 16:37 96 10/22/17 15:41 36.7 109 18 97/69 (78) 90 1.0 10/22/17 15:30 90 Nasal Cannula 2.0 10/22/17 14:28 90 16 97 Nasal Cannula 2.0 10/22/17 13:47 101 108/71 Lab Results: Results Past 24 Hours Test 10/22/17 18:16 10/23/17 00:04 10/23/17 05:29 10/23/17 06:00 Range/Units Bedside Glucose 174 216 159 70-99 mg/dl Sodium Level 132 136-145 mmol/L Potassium Level 3.9 3.5-5.1 mmol/L Chloride Level 96 98-107 mmol/L Carbon Dioxide Level 29 21-32 mmol/L Anion Gap 7.0 3-11 mmol/L Blood Urea Nitrogen 53 7-18 mg/dl Creatinine 1.04 0.60-1.40 mg/dl Est Creatinine Clear Calc Drug Dose 93.9 ml/min Estimated GFR () 92.6 Estimated GFR (Non- 79.9 BUN/Creatinine Ratio 50.6 10-20 Random Glucose 181 70-99 mg/dl Calcium Level 8.6 8.5-10.1 mg/dl Phosphorus Level 2.8 2.5-4.9 mg/dl Magnesium Level 2.0 1.8-2.4 mg/dl Triglycerides Level 198 0-150 mg/dl Test 10/23/17 11:27 Range/Units Bedside Glucose 177 70-99 mg/dl
[2017-10-23] MEDS ORDERED: CUSTOM CENTRAL PN 1 BAG IV SCH (16:00)
[2017-10-23] MEDS: DIGOXIN IV 250 MCG in SYRINGE 9 ML IV SCH (16:24)
[2017-10-23] MEDS ORDERED: NURSING DECISION MEDICATION ORDER SCH (17:45)
[2017-10-23] MEDS ORDERED: INSULIN GLARGINE SOLOSTAR 100 UNITS/ML 3 ML PEN SC SCH (20:00)
[2017-10-24] VITALS (10 sets, daily range): BP systolic 117–130; BP diastolic 68–78; PULSE 79–105; TEMP 36.2–36.6; O2SAT 96–99
[2017-10-24] MEDS: METOPROLOL TARTRATE 1 MG/ML VIAL IV. SCH ×4 (01:57→20:31)
[2017-10-24] MEDS: MoRPHine SULFATE 2 MG/ML CARP IV PRN (01:58)
[2017-10-24 06:40] LABS: BUN/CREATININE RATIO 49.1 (10-20); CALCIUM 8.5 mg/dl (8.5-10.1); CREATININE 0.9 mg/dl (0.60-1.40); MAGNESIUM 1.8 mg/dl (1.8-2.4); PHOSPHORUS 2.5 mg/dl (2.5-4.9); POTASSIUM 3.7 mmol/L (3.5-5.1)
[2017-10-24] MEDS: LEVALBUTEROL 1.25MG/0.5ML NEB INH SCH ×4 (06:58→19:06)
[2017-10-24] MEDS: IPRATROPIUM BROMIDE NEB SOLN 0.02% 2.5 ML VIAL INH SCH ×4 (06:58→19:06)
[2017-10-24] MEDS: FUROSEMIDE INJ 40 MG in SYRINGE 0 ML IV SCH ×2 (07:57→15:33)
[2017-10-24] MEDS: DEXAMETHASONE INJ 4 MG in SYRINGE 0 ML IV SCH (07:58)
[2017-10-24] MEDS: ENOXAPARIN 40 MG/0.4 ML SYR SQ SCH (07:58)
[2017-10-24] MEDS: INSULIN ASPART 100 UNITS/ML 3 ML PEN SC SCH ×4 (08:34→21:13)
[2017-10-24] MEDS: INSULIN GLARGINE SOLOSTAR 100 UNITS/ML 3 ML PEN SC SCH ×2 (08:35→21:13)
[2017-10-24] MEDS: CHECK FENTANYL PATCH PLACEMENT SCH ×3 (08:35→23:28)
--- NOTE | 2017-10-24 10:33 | Pharmacy Progress Note ---
Parenteral Nutrition Consult Date of Service Oct 24, 2017. Scope Pharmacy was consulted on 10/19/17 to manage parenteral nutrition orders for this patient. Subjective The patient is currently on day 6 of central parenteral nutrition for lung cancer with large mediastinal mass. Pt has severe dysphagia to solids, liquids, and medications due to extrinsic compression from mediastinal mass. Objective Height (Feet): 5 Height (Inches): 10.00 Weight (Kilograms): 100.400 Intake & Output (Last 72 Hr): 10/23/17 10/24/17 10/25/17 08:00 08:00 08:00 Intake Total 2715 ml 4195 ml Output Total 3175 ml 5725 ml Balance -460 ml -1530 ml Laboratory Data (Last 24 Hr): Test 10/24/17 05:24 Blood Urea Nitrogen 44 mg/dl (7-18) Calcium Level 8.5 mg/dl (8.5-10.1) Carbon Dioxide Level 32 mmol/L (21-32) Chloride Level 97 mmol/L (98-107) Creatinine 0.90 mg/dl (0.60-1.40) Magnesium Level 1.8 mg/dl (1.8-2.4) Phosphorus Level 2.5 mg/dl (2.5-4.9) Potassium Level 3.7 mmol/L (3.5-5.1) Random Glucose 166 mg/dl (70-99) Sodium Level 133 mmol/L (136-145) Nutrition Assessment Please refer to the Notes section of the EMR for the most recent salvage winder and inspector note. Assessment Mr. Glasgow is a 57 yr old male on day #6 of TPN administered via PICC line * macronutrients at goal * serum sodium, potassium, phosphorus, and magnesium were low this morning ( this is despite increasing potassium, sodium, and phosphorus in TPN yesterday) * electrolyte abnormality likely due to diuresis (pt receiving Lasix 40 mg IV BID); h/o chronic left ventricular diastolic hear failure, A fib, and renal cancer s/p nephrectomy * good urine output, ~4075 mL documented on 10/23 Plan For day 6 of PN administration, the following will be ordered: Macronutrients Amino acids 150 grams/day Dextrose 350 grams/day Lipids 50 grams/day Micronutrients Sodium phosphate 33 MMol - increased Sodium chloride 150 mEq - increased Sodium acetate 40 mEq Potassium chloride 120 mEq - increased Magnesium sulfate 16.24 mEq - increased Calcium gluconate (removed due to increasing Phos and Mag) Multivitamins 10 mL Trace Elements 1 mL Folic acid 1 mg Thiamine 100 mg Regular insulin 80 units Total volume 2418 mL to be infused over 24 hrs will provide 2290 kcal/day Labs, as indicated, will be ordered per protocol Pharmacy will continue to follow and adjust parenteral nutrition orders on a daily basis. Thank you for allowing us to participate in the care of this patient.
--- NOTE | 2017-10-24 10:45 | Pharmacy Progress Note ---
Pharmacy Glycemic Short Note 2 Date of Service Oct 24, 2017. OUTPATIENT ANTIDIABETIC REGIMEN: * Diet controlled * A1c 6.3% 10/18/17 ASSESSMENT: * 57 yr old male with hyperglycemia due to IV steroids and administration of TPN * Dextrose in TPN was titrated to goal of 350 grams per day on 10/23 * Dexamethasone continues at 4 mg IV daily * Pt tolerating thin liquids on 10/23. Diet advanced today starting with lunch. * Pt received 108 units of insulin over the past 24 hours with BSGs ranging from 159 to 235 mg/dL. * I have lowered his goal range to allow for more correctional insulin. A carb ratio was added last evening since diet is advancing. PLAN FOR INPATIENT GLYCEMIC CONTROL: * Basal insulin * Lantus 15 units SQ BID * Bolus insulin * NovoLog per scale ACHS * Goal Gange: Low 120 mg/dL - High 150 mg/dL * Correction Factor: 15 mg/dL/unit * Carb ratio: 1 unit for every 5 grams of carbohydrate * Increase to 80 units of regular insulin in TPN * to cover 350 grams of dextrose PLAN FOR DISCHARGE: * Patient is diet controlled with adequate outpatient glycemic management. Patient may require a daily dose of NPH on discharge if steroids are continued.
[2017-10-24] MEDS: LEVOFLOXACIN / D5W 750 MG in PREMIXED IN D5W 150 ML IV SCH (12:20)
--- NOTE | 2017-10-24 14:28 | Progress Note ---
Internal Med Progress Note Date of Service: Oct 24, 2017. Provider Documentation: SUBJECTIVE: The patient was seen and examined OOB in a chair Generally weak but denies any other complaints Tolerating oral feeding Advanced as tolerated OBJECTIVE: Vital Signs-as noted below Exam: General-No distress at rest Eyes-normal ENT-normal Neck-supple Lungs-Clear to auscultate bilaterally with decreased breath sound Heart-Regular,no murmur appreciated Abdomen-Benign,no masses Extremities-1 to 2 + edema bilaterally with chronic skin changes Neuro-AAOx3 Deaf and generally weak Lab data as noted below. ASSESSMENT & PLAN: SMALL CELL CARCINOMA OF LUNG Imaging by CT and PET scans demonstrated large mediastinal lymphadenopathy with extension into the left hilar region and extrinsic compression on the proximal esophagus. Biopsy demonstrated small cell carcinoma. Management per Medical Oncology and Radiation Oncology. Received chemotherapy 10/19 - 10/21. (carboplatin, etoposide, fosaprepitant, dexamethasone). Appreciate Oncology input Radiation Oncology will start Radiation soon Denies any symptoms COUGH / HEMOPTYSIS Cough productive of green sputum for past few weeks. Probably aspirating, but no evidence of pneumonia (afebrile, no infiltrates on chest imaging). Sputum C&S --> normal rao. Continue Levofloxacin for probable Bronchitis/pneumonia. Aspiration precautions. Keep head of bed elevated to minimize risk of aspiration. Differential diagnosis includes hemoptysis secondary to infection, malignancy, pulmonary embolism. Blood seems to be mixed with purulent sputum, so favor infection. Certainly at risk for pulmonary embolism, but hemoptysis not characteristic, CTA chest on admission negative for PE, and venous duplex left lower extremity negative for DVT. Held enoxaparin due to Hemoptysis No further hemoptysis. Cough improved and no more hemoptysis . DYSPHAGIA Severe dysphagia to solids, liquids, meds due to extrinsic compression from mediastinal mass. Case discussed with GI and Medical Oncology. Esophageal stent placement would be challenging and could lead to complications. Started on short-term nutritional support with TPN pending anticipated response to chemoradiation. Keep head elevated at all times. Tolerating thin liquids orally and want more food to take orally . Advance diet as tolerated with caution.-explained the risk of aspiration CORONARY ARTERY DISEASE Chest pain probably due to malignancy. Troponin normal. Holding aspirin because of GI symptoms and hemoptysis. Continue metoprolol. ATRIAL FIBRILLATION (CHRONIC) Rate usually controlled on metoprolol and diltiazem. Converted to parenteral metoprolol due to severe dysphagia. Unable to swallow apixaban. Added IV digoxin for better rate control. Held therapeutic dosing for enoxaparin due to hemoptysis; resume as able. Resumed Therapeutic dose of Lovenox CHF Acute on chronic left ventricular diastolic heart failure. Receiving TPN + chemo. Watch exam, weights. Continue IV diuretics for now No overt CHF HTN,Chronic Respiratory Failure and Sleep Apnea Remains stable DM TYPE 2 Expect fluctuating blood sugars due to acute illness, NPO status, anticipated TPN, steroids. Pharmacy consulted for glycemic management. Lantus / NovoLog per protocol + insulin in TPN. FBS this morning = 131. LEFT ANKLE PAIN Suspect gout flare. Uric acid 10/19 14.9. Received IV methylprednisolone x 1 and dexamethasone with chemo x 3. Pain / exam improved. Venous duplex 10/19 negative for DVT. Start allopurinol (1) after current flare and (2) when able to swallow meds. VTE PROPHYLAXIS Unable to swallow apixaban. Transitioned to therapeutic dosing of SQ enoxaparin. Developed bloody sputum and enoxaparin held. SCD's. Ambulate. Resume enoxaparin prophylactic dose DISPOSITION To be determined. Primary care follow-up with Dr. James. Hematology / Oncology follow-up with Drs. Olsen and Lorenza. . Consultants: GI Medical Oncology Radiation Oncology . Procedures: CTA chest cardiac monitoring IV meds PICC TPN chemotherapy Vital Signs: Date Time Temp Pulse Resp B/P (MAP) Pulse Ox O2 Delivery O2 Flow Rate FiO2 10/24/17 13:06 108 124/75 10/24/17 11:28 82 16 96 Nasal Cannula 2.0 10/24/17 11:08 36.2 79 14 121/78 (92) 96 Nasal Cannula 2.0 10/24/17 08:00 Nasal Cannula 2.0 10/24/17 07:58 92 120/71 10/24/17 07:48 97 Nasal Cannula 2.0 10/24/17 07:15 36.3 87 16 117/74 (88) 97 Nasal Cannula 2.0 10/24/17 07:00 89 16 98 Nasal Cannula 2.0 10/24/17 01:57 91 109/71 10/24/17 00:00 Nasal Cannula 2.0 10/23/17 23:08 36.5 86 20 122/76 (91) 98 Nasal Cannula 2.0 10/23/17 20:00 Nasal Cannula 2.0 10/23/17 19:25 99 128/72 10/23/17 19:22 36.2 99 18 124/78 (93) 97 Nasal Cannula 2.0 10/23/17 18:59 91 16 97 Nasal Cannula 2.0 10/23/17 16:24 102 10/23/17 16:15 99 Nasal Cannula 2.0 10/23/17 15:19 36.3 89 20 122/75 (91) 99 Nasal Cannula 1.5 10/23/17 15:01 89 16 96 Nasal Cannula 2.0 10/23/17 14:44 98 115/72 Lab Results: Results Past 24 Hours Test 10/23/17 16:19 10/23/17 19:23 10/23/17 23:56 10/24/17 05:24 Range/Units Bedside Glucose 235 218 189 70-99 mg/dl Sodium Level 133 136-145 mmol/L Potassium Level 3.7 3.5-5.1 mmol/L Chloride Level 97 98-107 mmol/L Carbon Dioxide Level 32 21-32 mmol/L Anion Gap 4.0 3-11 mmol/L Blood Urea Nitrogen 44 7-18 mg/dl Creatinine 0.90 0.60-1.40 mg/dl Est Creatinine Clear Calc Drug Dose 108.8 ml/min Estimated GFR () 110.3 Estimated GFR (Non- 95.1 BUN/Creatinine Ratio 49.1 10-20 Random Glucose 166 70-99 mg/dl Calcium Level 8.5 8.5-10.1 mg/dl Phosphorus Level 2.5 2.5-4.9 mg/dl Magnesium Level 1.8 1.8-2.4 mg/dl Test 10/24/17 07:36 10/24/17 11:17 Range/Units Bedside Glucose 130 146 70-99 mg/dl
[2017-10-24] MEDS: DIGOXIN IV 250 MCG in SYRINGE 9 ML IV SCH (15:42)
[2017-10-24] MEDS ORDERED: CUSTOM CENTRAL PN 1 BAG IV SCH (16:00)
[2017-10-25] VITALS (11 sets, daily range): BP systolic 113–131; BP diastolic 65–86; PULSE 71–97; TEMP 36.3–36.8; O2SAT 91–98
[2017-10-25] MEDS: MoRPHine SULFATE 2 MG/ML CARP IV PRN ×2 (01:08→10:23)
[2017-10-25] MEDS: METOPROLOL TARTRATE 1 MG/ML VIAL IV. SCH ×2 (01:09→07:48)
[2017-10-25 06:37] LABS: BUN/CREATININE RATIO 46.6 (10-20); CALCIUM 8.4 mg/dl (8.5-10.1); CREATININE 0.91 mg/dl (0.60-1.40); MAGNESIUM 1.9 mg/dl (1.8-2.4); POTASSIUM 3.8 mmol/L (3.5-5.1)
[2017-10-25 06:42] LABS: PHOSPHORUS 2.2 mg/dl (2.5-4.9); PREALBUMIN 36.6 mg/dl (20-40)
[2017-10-25] MEDS: IPRATROPIUM BROMIDE NEB SOLN 0.02% 2.5 ML VIAL INH SCH ×4 (07:12→19:23)
[2017-10-25] MEDS: LEVALBUTEROL 1.25MG/0.5ML NEB INH SCH ×4 (07:12→19:23)
[2017-10-25] MEDS: DEXAMETHASONE INJ 4 MG in SYRINGE 0 ML IV SCH (07:48)
[2017-10-25] MEDS: INSULIN GLARGINE SOLOSTAR 100 UNITS/ML 3 ML PEN SC SCH ×2 (07:49→20:55)
[2017-10-25] MEDS: FUROSEMIDE INJ 40 MG in SYRINGE 0 ML IV SCH (07:50)
[2017-10-25] MEDS: ENOXAPARIN 40 MG/0.4 ML SYR SQ SCH (07:50)
[2017-10-25] MEDS: CHECK FENTANYL PATCH PLACEMENT SCH ×2 (08:00→16:09)
[2017-10-25] MEDS: INSULIN ASPART 100 UNITS/ML 3 ML PEN SC SCH ×4 (09:01→20:58)
--- NOTE | 2017-10-25 11:25 | Pharmacy Progress Note ---
Pharmacy Glycemic Short Note 2 Date of Service Oct 25, 2017. Test 10/24/17 11:17 10/24/17 17:42 10/24/17 21:03 10/25/17 05:23 Bedside Glucose 146 mg/dl (70-99) 177 mg/dl (70-99) 188 mg/dl (70-99) Random Glucose 141 mg/dl (70-99) Test 10/25/17 07:20 Bedside Glucose 135 mg/dl (70-99) OUTPATIENT ANTIDIABETIC REGIMEN: * Diet controlled * A1c 6.3% 10/18/17 ASSESSMENT: * 57 yr old male with hyperglycemia due to IV steroids and administration of TPN * Dextrose in TPN was titrated to goal of 350 grams per day on 10/23 * Dexamethasone continues at 4 mg IV daily * Pt tolerating type 2 diabetes diet - TPN to discontinue after finishing current bag at 1600 today * TPN contains 350g CHO and 80 units of insulin to cover those carbohydrates so patient should not need any changes in insulin regimen, blood sugars at goal * Will do an additional accucheck overnight tonight to ensure glycemic control PLAN FOR INPATIENT GLYCEMIC CONTROL: * Continue Basal insulin * Lantus 15 units SQ BID * Continue Bolus insulin * NovoLog per scale ACHS and at 0200 tonight * Goal Gange: Low 120 mg/dL - High 150 mg/dL * Correction Factor: 15 mg/dL/unit * Carb ratio: 1 unit for every 5 grams of carbohydrate * 80 units of regular insulin in TPN - DISCONTINUE AT 1600 TODAY AFTER TODAY'S BAG IS FINISHED * to cover 350 grams of dextrose PLAN FOR DISCHARGE: * Patient is diet controlled with adequate outpatient glycemic management. Patient may require a daily dose of NPH on discharge if steroids are continued. * For a prednisone equivalent of 30mg (Dexamethasone 4mg) - recommend NPH 30 units SQ QAM Thank you.
[2017-10-25] MEDS: LEVOFLOXACIN / D5W 750 MG in PREMIXED IN D5W 150 ML IV SCH (12:50)
[2017-10-25] MEDS: FUROSEMIDE 40 MG TAB PO SCH (16:06)
[2017-10-25] MEDS: DIGOXIN 0.125 MG TAB PO SCH (16:07)
--- NOTE | 2017-10-25 16:53 | Progress Note ---
Internal Med Progress Note Date of Service: Oct 25, 2017. Provider Documentation: SUBJECTIVE: The patient was seen and examined Generally weak but denies any other complaints Tolerating oral feeding Advanced as tolerated and tolerated well OBJECTIVE: Vital Signs-as noted below Exam: General-No distress at rest Eyes-normal ENT-normal Neck-supple Lungs-Clear to auscultate bilaterally with decreased breath sound Heart-Regular,no murmur appreciated Abdomen-Benign,no masses Extremities-1 to 2 + edema bilaterally with chronic skin changes Neuro-AAOx3 Deaf and generally weak Lab data as noted below. ASSESSMENT & PLAN: SMALL CELL CARCINOMA OF LUNG Imaging by CT and PET scans demonstrated large mediastinal lymphadenopathy with extension into the left hilar region and extrinsic compression on the proximal esophagus. Biopsy demonstrated small cell carcinoma. Management per Medical Oncology and Radiation Oncology. Received chemotherapy 10/19 - 10/21. (carboplatin, etoposide, fosaprepitant, dexamethasone). Appreciate Oncology input Radiation Oncology will start Radiation soon Denies any symptoms Arrange to continue RT sessions in [facility] COUGH / HEMOPTYSIS Cough productive of green sputum for past few weeks. Probably aspirating, but no evidence of pneumonia (afebrile, no infiltrates on chest imaging). Sputum C&S --> normal rao. Continue Levofloxacin for probable Bronchitis/pneumonia. Aspiration precautions. Keep head of bed elevated to minimize risk of aspiration. Differential diagnosis includes hemoptysis secondary to infection, malignancy, pulmonary embolism. Blood seems to be mixed with purulent sputum, so favor infection. Certainly at risk for pulmonary embolism, but hemoptysis not characteristic, CTA chest on admission negative for PE, and venous duplex left lower extremity negative for DVT. Held enoxaparin due to Hemoptysis No further hemoptysis. Cough improved and no more hemoptysis . Restarted on Eliquis DYSPHAGIA Severe dysphagia to solids, liquids, meds due to extrinsic compression from mediastinal mass. Case discussed with GI and Medical Oncology. Esophageal stent placement would be challenging and could lead to complications. Started on short-term nutritional support with TPN pending anticipated response to chemoradiation. Keep head elevated at all times. Tolerating thin liquids orally and want more food to take orally . Advance diet as tolerated with caution.-explained the risk of aspiration Denies any more symptoms and tolerating advanced diet CORONARY ARTERY DISEASE Chest pain probably due to malignancy. Troponin normal. Holding aspirin because of GI symptoms and hemoptysis. Continue metoprolol. ATRIAL FIBRILLATION (CHRONIC) Rate usually controlled on metoprolol and diltiazem. Converted to parenteral metoprolol due to severe dysphagia. Unable to swallow apixaban. Added IV digoxin for better rate control. Held therapeutic dosing for enoxaparin due to hemoptysis; resume as able. Resumed Therapeutic dose of Lovenox and changed to Eliquis CHF Acute on chronic left ventricular diastolic heart failure. Receiving TPN + chemo. Watch exam, weights. Continue IV diuretics for now No overt CHF HTN,Chronic Respiratory Failure and Sleep Apnea Remains stable DM TYPE 2 Expect fluctuating blood sugars due to acute illness, NPO status, anticipated TPN, steroids. Pharmacy consulted for glycemic management. Lantus / NovoLog per protocol + insulin in TPN. Blood sugar remains reasonable LEFT ANKLE PAIN Suspect gout flare. Uric acid 10/19 14.9. Received IV methylprednisolone x 1 and dexamethasone with chemo x 3. Pain / exam improved. Venous duplex 10/19 negative for DVT. Start allopurinol (1) after current flare and (2) when able to swallow meds. VTE PROPHYLAXIS Unable to swallow apixaban. Transitioned to therapeutic dosing of SQ enoxaparin. Developed bloody sputum and enoxaparin held. SCD's. Ambulate. Resume enoxaparin prophylactic dose DISPOSITION To be determined. Primary care follow-up with Dr. James. Hematology / Oncology follow-up with Drs. Olsen and Lorenza. . Consultants: GI Medical Oncology Radiation Oncology . Procedures: CTA chest cardiac monitoring IV meds PICC TPN chemotherapy Disposition Likely discharge home tomorrow Vital Signs: Date Time Temp Pulse Resp B/P (MAP) Pulse Ox O2 Delivery O2 Flow Rate FiO2 10/25/17 16:07 82 10/25/17 16:00 94 Room Air 10/25/17 15:46 82 16 94 Room Air 10/25/17 15:05 36.6 97 22 113/73 (86) 97 Nasal Cannula 1.5 10/25/17 11:58 36.3 71 18 131/86 (101) 95 Room Air 10/25/17 08:00 95 Nasal Cannula 1.5 10/25/17 07:48 90 122/79 10/25/17 07:46 36.6 73 18 119/78 (92) 95 Nasal Cannula 1.5 10/25/17 07:14 90 17 96 Nasal Cannula 2.0 10/25/17 04:03 36.7 79 18 114/73 (87) 98 Nasal Cannula 2.0 10/25/17 01:09 88 118/77 10/25/17 00:00 Nasal Cannula 2.0 10/24/17 23:52 36.4 85 16 118/77 (91) 99 Nasal Cannula 2.0 10/24/17 22:00 Nasal Cannula 2.0 Humidified Oxygen 10/24/17 20:31 105 125/74 10/24/17 19:26 36.6 100 18 122/68 (86) 96 Nasal Cannula 1.5 10/24/17 19:06 89 16 98 Nasal Cannula 2.0 Lab Results: Results Past 24 Hours Test 10/24/17 17:42 10/24/17 21:03 10/25/17 05:23 10/25/17 07:20 Range/Units Bedside Glucose 177 188 135 70-99 mg/dl Sodium Level 133 136-145 mmol/L Potassium Level 3.8 3.5-5.1 mmol/L Chloride Level 98 98-107 mmol/L Carbon Dioxide Level 32 21-32 mmol/L Anion Gap 3.0 3-11 mmol/L Blood Urea Nitrogen 43 7-18 mg/dl Creatinine 0.91 0.60-1.40 mg/dl Est Creatinine Clear Calc Drug Dose 108.1 ml/min Estimated GFR () 108.8 Estimated GFR (Non- 93.9 BUN/Creatinine Ratio 46.6 10-20 Random Glucose 141 70-99 mg/dl Calcium Level 8.4 8.5-10.1 mg/dl Phosphorus Level 2.2 2.5-4.9 mg/dl Magnesium Level 1.9 1.8-2.4 mg/dl Total Bilirubin 0.3 0.2-1 mg/dl Aspartate Amino Transf (AST/SGOT) 27 15-37 U/L Alanine Aminotransferase (ALT/SGPT) 24 12-78 U/L Alkaline Phosphatase 47 45-117 U/L Prealbumin 36.6 20-40 mg/dl Test 10/25/17 12:01 10/25/17 16:20 Range/Units Bedside Glucose 114 113 70-99 mg/dl
[2017-10-25] MEDS: DEXAMETHASONE 1 MG TAB PO SCH (20:56)
[2017-10-25] MEDS: APIXABAN 2.5 MG TAB PO SCH (20:58)
[2017-10-26] MEDS: CHECK FENTANYL PATCH PLACEMENT SCH ×3 (00:02→16:00)
[2017-10-26] MEDS: MoRPHine SULFATE 2 MG/ML CARP IV PRN (00:19)
[2017-10-26] MEDS ORDERED: INSULIN ASPART 100 UNITS/ML 3 ML PEN SC ONE (02:00)
[2017-10-26 04:13] VITALS: BP 128/86; PULSE 79; TEMP 36.3; O2SAT 94
[2017-10-26 06:03] LABS: HEMATOCRIT 34.2 % (42-52); MEAN CELL VOLUME 88.4 fL (80-100); MEAN CORPUSCULAR HEMOGLOBIN 29.2 pg (25-34); MEAN PLATELET VOLUME 10.5 fL (7.4-10.4); PLATELET COUNT 149 K/uL (130-400); RED BLOOD COUNT 3.87 M/uL (4.7-6.1); WHITE BLOOD COUNT 1.28 K/uL (4.8-10.8)
[2017-10-26 06:42] LABS: BUN/CREATININE RATIO 45.9 (10-20); CALCIUM 8.7 mg/dl (8.5-10.1); CREATININE 0.88 mg/dl (0.60-1.40); MAGNESIUM 1.9 mg/dl (1.8-2.4); PHOSPHORUS 3.1 mg/dl (2.5-4.9); POTASSIUM 4.5 mmol/L (3.5-5.1)
[2017-10-26 07:26] VITALS: BP 119/74; PULSE 79; TEMP 36.6; O2SAT 94
[2017-10-26 07:36] VITALS: PULSE 77; O2SAT 96
[2017-10-26] MEDS: IPRATROPIUM BROMIDE NEB SOLN 0.02% 2.5 ML VIAL INH SCH (07:36)
[2017-10-26] MEDS: LEVALBUTEROL 1.25MG/0.5ML NEB INH SCH (07:36)
[2017-10-26] MEDS ORDERED: DILTIAZEM HCL (TIAzac) 180 MG CAPCR PO SCH (08:00)
[2017-10-26] MEDS: DEXAMETHASONE 1 MG TAB PO SCH (08:08)
[2017-10-26] MEDS: FUROSEMIDE 40 MG TAB PO SCH ×2 (08:08→17:52)
[2017-10-26] MEDS: APIXABAN 2.5 MG TAB PO SCH (08:09)
[2017-10-26] MEDS: INSULIN ASPART 100 UNITS/ML 3 ML PEN SC SCH ×2 (08:19→12:34)
[2017-10-26] MEDS: INSULIN GLARGINE SOLOSTAR 100 UNITS/ML 3 ML PEN SC SCH (08:19)
[2017-10-26] MEDS: FENTANYL PATCH REMOVE & WASTE SCH (09:00)
[2017-10-26] MEDS: FENTANYL 25 MCG/HR TDSY TD SCH (09:00)
[2017-10-26] MEDS ORDERED: IPRATROPIUM BROMIDE NEB SOLN 0.02% 2.5 ML VIAL INH PRN (09:45)
[2017-10-26] MEDS ORDERED: LEVALBUTEROL 1.25MG/0.5ML NEB INH PRN (09:45)
[2017-10-26] MEDS ORDERED: LEVOFLOXACIN 750 MG TAB PO SCH (11:00)
[2017-10-26 11:09] VITALS: BP 120/73; PULSE 82; TEMP 36.4; O2SAT 96
[2017-10-26] MEDS ORDERED: LEVALBUTEROL 1.25MG/0.5ML NEB INH SCH (12:00)
[2017-10-26] MEDS ORDERED: IPRATROPIUM BROMIDE NEB SOLN 0.02% 2.5 ML VIAL INH SCH (12:00)
--- NOTE | 2017-10-26 15:24 | Progress Note ---
Internal Med Progress Note Date of Service: Oct 26, 2017. Provider Documentation: SUBJECTIVE: The patient was seen and examined Generally weak but denies any other complaints Advanced as tolerated and tolerated well Ready to be discharged today Ambulating well OBJECTIVE: Vital Signs-as noted below Exam: General-No distress at rest Eyes-normal ENT-normal Neck-supple Lungs-Clear to auscultate bilaterally with decreased breath sound Heart-Regular,no murmur appreciated Abdomen-Benign,no masses Extremities-1 to 2 + edema bilaterally with chronic skin changes -improves a little Neuro-AAOx3 Deaf and generally weak Lab data as noted below. ASSESSMENT & PLAN: SMALL CELL CARCINOMA OF LUNG Imaging by CT and PET scans demonstrated large mediastinal lymphadenopathy with extension into the left hilar region and extrinsic compression on the proximal esophagus. Biopsy demonstrated small cell carcinoma. Management per Medical Oncology and Radiation Oncology. Received chemotherapy 10/19 - 10/21. (carboplatin, etoposide, fosaprepitant, dexamethasone). Appreciate Oncology input Radiation Oncology will start Radiation soon Denies any symptoms Arrange to continue RT sessions in [facility] Discussed with the Oncologist -will call patient for follow up appointment after radiation therapy is done COUGH / HEMOPTYSIS Cough productive of green sputum for past few weeks. Probably aspirating, but no evidence of pneumonia (afebrile, no infiltrates on chest imaging). Sputum C&S --> normal rao. Continue Levofloxacin for probable Bronchitis/pneumonia. Aspiration precautions. Keep head of bed elevated to minimize risk of aspiration. Differential diagnosis includes hemoptysis secondary to infection, malignancy, pulmonary embolism. Blood seems to be mixed with purulent sputum, so favor infection. Certainly at risk for pulmonary embolism, but hemoptysis not characteristic, CTA chest on admission negative for PE, and venous duplex left lower extremity negative for DVT. Held enoxaparin due to Hemoptysis No further hemoptysis.and no more cough Cough improved and no more hemoptysis . Restarted on Eliquis DYSPHAGIA Severe dysphagia to solids, liquids, meds due to extrinsic compression from mediastinal mass. Case discussed with GI and Medical Oncology. Esophageal stent placement would be challenging and could lead to complications. Started on short-term nutritional support with TPN pending anticipated response to chemoradiation. Keep head elevated at all times. Tolerating thin liquids orally and want more food to take orally . Advance diet as tolerated with caution.-explained the risk of aspiration Denies any more symptoms and tolerating advanced diet CORONARY ARTERY DISEASE Chest pain probably due to malignancy. Troponin normal. Holding aspirin because of GI symptoms and hemoptysis. Continue metoprolol. ATRIAL FIBRILLATION (CHRONIC) Rate usually controlled on metoprolol and diltiazem. Converted to parenteral metoprolol due to severe dysphagia. Unable to swallow apixaban. Added IV digoxin for better rate control. Held therapeutic dosing for enoxaparin due to hemoptysis; resume as able. Resumed Therapeutic dose of Lovenox and changed to Eliquis CHF Acute on chronic left ventricular diastolic heart failure. Receiving TPN + chemo. Watch exam, weights. Continue IV diuretics for now No overt CHF HTN,Chronic Respiratory Failure and Sleep Apnea Remains stable DM TYPE 2 Expect fluctuating blood sugars due to acute illness, NPO status, anticipated TPN, steroids. Pharmacy consulted for glycemic management. Lantus / NovoLog per protocol + insulin in TPN. Blood sugar remains reasonable LEFT ANKLE PAIN Suspect gout flare. Uric acid 10/19 14.9. Received IV methylprednisolone x 1 and dexamethasone with chemo x 3. Pain / exam improved. Venous duplex 10/19 negative for DVT. Start allopurinol (1) after current flare and (2) when able to swallow meds. Resolved VTE PROPHYLAXIS Unable to swallow apixaban. Transitioned to therapeutic dosing of SQ enoxaparin. Developed bloody sputum and enoxaparin held. SCD's. Ambulate. Resume enoxaparin prophylactic dosee Eliquis DISPOSITION To be determined. Primary care follow-up with Dr. James. Hematology / Oncology follow-up with Drs. Olsen and Lorenza. . Consultants: GI Medical Oncology Radiation Oncology . Procedures: CTA chest cardiac monitoring IV meds PICC TPN chemotherapy Disposition Discharge home today Vital Signs: Date Time Temp Pulse Resp B/P (MAP) Pulse Ox O2 Delivery O2 Flow Rate FiO2 10/26/17 14:03 36.4 82 18 96 Room Air 10/26/17 11:09 36.4 82 18 120/73 (89) 96 10/26/17 08:15 Room Air 10/26/17 07:36 77 18 96 Room Air 10/26/17 07:26 36.6 79 19 119/74 (89) 94 10/26/17 04:13 36.3 79 18 128/86 (100) 94 Room Air 10/26/17 00:00 Room Air 10/25/17 23:28 36.4 75 20 121/75 (90) 97 Room Air 10/25/17 19:24 80 16 93 Room Air 10/25/17 19:20 36.6 80 21 131/79 (96) 91 Room Air 10/25/17 16:07 82 10/25/17 16:00 94 Room Air 10/25/17 15:46 82 16 94 Room Air Lab Results: Results Past 24 Hours Test 10/25/17 16:20 10/25/17 20:47 10/26/17 02:16 10/26/17 05:22 Range/Units Bedside Glucose 113 127 148 70-99 mg/dl White Blood Count 1.28 4.8-10.8 K/uL Red Blood Count 3.87 4.7-6.1 M/uL Hemoglobin 11.3 14.0-18.0 g/dL Hematocrit 34.2 42-52 % Mean Corpuscular Volume 88.4 80-100 fL Mean Corpuscular Hemoglobin 29.2 25-34 pg Mean Corpuscular Hemoglobin Concent 33.0 32-36 g/dl RDW Standard Deviation 47.1 36.4-46.3 fL RDW Coefficient of Variation 14.5 11.5-14.5 % Platelet Count 149 130-400 K/uL Mean Platelet Volume 10.5 7.4-10.4 fL Sodium Level 134 136-145 mmol/L Potassium Level 4.5 3.5-5.1 mmol/L Chloride Level 98 98-107 mmol/L Carbon Dioxide Level 31 21-32 mmol/L Anion Gap 5.0 3-11 mmol/L Blood Urea Nitrogen 40 7-18 mg/dl Creatinine 0.88 0.60-1.40 mg/dl Est Creatinine Clear Calc Drug Dose 111.7 ml/min Estimated GFR () 111.3 Estimated GFR (Non- 96.0 BUN/Creatinine Ratio 45.9 10-20 Random Glucose 128 70-99 mg/dl Calcium Level 8.7 8.5-10.1 mg/dl Phosphorus Level 3.1 2.5-4.9 mg/dl Magnesium Level 1.9 1.8-2.4 mg/dl Test 10/26/17 07:43 10/26/17 11:49 Range/Units Bedside Glucose 139 146 70-99 mg/dl
[2017-10-26 15:27] VITALS: BP 109/69; PULSE 60; TEMP 36.6; O2SAT 94
[2017-10-26] MEDS ORDERED: DXM1 PO (15:59)
[2017-10-26] MEDS ORDERED: NTRSLP4 SL (15:59)
[2017-10-26] MEDS ORDERED: DRGTP25 TD (15:59)
[2017-10-26] MEDS ORDERED: LNX125 PO (15:59)
[2017-10-26] MEDS ORDERED: HYDR-3983 PO (15:59)
--- NOTE | 2017-10-26 16:04 | Discharge Instructions ---
Discharge Instructions Date of Service Oct 26, 2017. 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 Instructions / Follow-Up Instructions / Follow-Up PCP's office will call for appoint.Oncologist -Dr Britt will call after completion of Radiation at [facility].Please take precaution to avoid fall Current Hospital Diet Patient's current hospital diet: AHA Diet (Heart Healthy), Diabetes Type 2 Diet Discharge Diet Recommended Diet: AHA Diet (Heart Healthy), Diabetes Type 2 Diet Fluid Restriction: 1500 ml (6 cups) Pending Studies Studies pending at discharge: no Laboratory Results Hemoglobin A1c Test 10/18/17 06:43 Range/Units Estimated Average Glucose 134 mg/dl Hemoglobin A1c 6.3 H 4.5-5.6 % Lipid Panel Test 10/18/17 06:43 10/23/17 05:29 Range/Units Triglycerides Level 210 H 198 H 0-150 mg/dl Cholesterol Level 123 0-200 mg/dl HDL Cholesterol 48 mg/dl Cholesterol/HDL Ratio 2.6 LDL Cholesterol, Calculated 33 mg/dl Medical Emergencies . Who to Call and When: Medical Emergencies: If at any time you feel your situation is an emergency, please call 911 immediately. . Non-Emergent Contact Non-Emergency issues call your: Primary Care Provider . Past History Medical & Surgical History: (1) Dysphasia (2) Hemoptysis (3) Atrial fibrillation (4) Small cell lung cancer (5) Acute on chronic systolic heart failure (6) Right lumbar radiculitis (7) possible ileus (8) Abdominal pain (9) Renal insufficiency (10) Chest pain . "Provider Documentation" section prepared by Jing Liao. . VTE Core Measure Inpt VTE Proph given/why not?: Other Anticoagulation (Eliquis )
[2017-10-26] MEDS: DIGOXIN 0.125 MG TAB PO SCH (17:52)
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
[2017-11-07] MEDS ORDERED: TPRSR25 PO (16:28)
[2017-11-07] MEDS ORDERED: DMD20 PO (16:28)
[2017-11-07] MEDS ORDERED: LVQ750 OR (16:47)
[2017-11-07] MEDS ORDERED: CLIN300C2 PO (16:52)
== END 2017-10-26 18:15 | disposition home or self-care (01) | DRG 180 ==
LOC: C.2T 12:54 → C.4E 10-19 11:11 → ENRESERV 10-19 11:36
PROVIDERS: ADMIT Hospitalist; ATTEND Internal Medicine
DX: C34.90 Malignant neoplasm of unspecified part of unspecified bronchus or lung (principal); J96.01 Acute respiratory failure with hypoxia; I50.33 Acute on chronic diastolic (congestive) heart failure; J90 Pleural effusion, not elsewhere classified; Z66 Do not resuscitate; I48.2 Chronic atrial fibrillation; I11.0 Hypertensive heart disease with heart failure; N18.3 Chronic kidney disease, stage 3 (moderate); E11.9 Type 2 diabetes mellitus without complications; E78.5 Hyperlipidemia, unspecified; E03.9 Hypothyroidism, unspecified; G47.33 Obstructive sleep apnea (adult) (pediatric); Z87.891 Personal history of nicotine dependence; R19.7 Diarrhea, unspecified; E78.00 Pure hypercholesterolemia, unspecified; I25.10 Atherosclerotic heart disease of native coronary artery without angina pectoris; Z85.528 Personal history of other malignant neoplasm of kidney; Z79.01 Long term (current) use of anticoagulants

== ENCOUNTER 2017-10-29 09:14 | Inpatient (IN) | payer BC ==
[~2017-10-29] VITALS: Ht 177.8 cm; Wt 104.4 kg
[~2017-10-29 09:14] MED LIST changes: +APIX1TAB3 PO; -DABI150C PO; +DILT-113 PO; -DILT360C17 PO; +DRGTP25 TD; +DXM1 PO; +LNX125 PO; +NTRSLP4 SL; -OXYC1TAB3 PO; -TPRSR/100 PO
[2017-10-29] MEDS ORDERED: ONDANSETRON INJ 2 MG/ML 2 ML VIAL IV STA (09:39)
[2017-10-29] MEDS ORDERED: ALBUT/IPRATROP 3MG/0.5MG NEB 3 ML VIAL INH STA (09:39)
[2017-10-29] MEDS ORDERED: FENTANYL CITRATE INJ 50 MCG/1 ML 2 ML VIAL IV STA ×2 (09:39→13:17)
--- NOTE | 2017-10-29 09:44 | EMERGENCY ROOM VISIT NOTE ---
History Report prepared by Mark: Rangel Mills Under the Supervision of: Dr. Sushil Dickens M.D. First contact with patient: 09:32 Chief Complaint: CHEST PAIN Stated Complaint: CHEST PAIN-COMING FROM RAD/ONC Nursing Triage Summary: pt reports chest pain started sunday morning at 0300. pt reports he went for radiation this am when lting down pain worsened sent here for eval History of Present Illness The patient is a 57 year old male who presents to the Emergency Room with complaints of a constant upper chest pain that began yesterday. He rates his pain an 8/10 in severity. He has a past medical history of lung cancer, CHF, sleep apnea, and atrial fibrillation. He was recently evaluated in our hospital as an inpatient for his "lung pain" for 9 days. He has a Fentanyl patch on his back for pain management. He is also receiving chemotherapy and radiation. Early yesterday morning, he began to experience this pain in his chest with associated mild shortness of breath. He denies any fevers, nausea, vomiting, abdominal pain, or increased leg swelling. He normally sleeps with oxygen, but has been using it more frequently. He denies any past history of [place]. He is currently taking Eliquis and a water pill. He notes that he took a Nitroglycerin and an Oxycodone yesterday which did not help his pain. Source of History: patient Onset: early yesterday morning Position: chest (upper) Symptom Intensity: 8/10 Quality: ache Timing: constant Associated Symptoms: + SOB (mild), No fevers, No nausea, No vomiting, No abdominal pain Review of Systems See HPI for pertinent positives and negatives. A total of ten systems were reviewed and were otherwise negative. Past Medical & Surgical Medical Problems: (1) Abdominal pain (2) Acute on chronic diastolic heart failure (3) Acute on chronic systolic heart failure (4) GENE (acute kidney injury) (5) Anticoagulants,Lt,Current Use (6) Atrial fibrillation (7) Atrial fibrillation (8) Chest pain (9) Congestive Heart Failure Nos (10) Coronary Atherosclerosis Of [place] Coronary Vessel (11) Diabetes mellitus type 2 (12) Dysphasia (13) Dyspnea (14) Hemoptysis (15) Hyperlipidemia (16) Hypertensive disorder, systemic arterial (17) Hypotension (18) Hypothyroidism (19) Obstructive Sleep Apnea (Adult) (Pediatric) (20) possible ileus (21) Renal cell carcinoma (22) Renal insufficiency (23) Renal insufficiency (24) Small cell lung cancer Surgical Problems: (1) S/p nephrectomy Family History No family history noted Social History Smoking Status: Never Smoker Smokeless Tobacco Use: No Drug Use: none Marital Status: single Occupation Status: disabled Current/Historical Medications Scheduled Apixaban (Eliquis), 5 MG PO BID Cholecalciferol (Vitamin D3 Super Strength), 2,000 INTER.UNIT PO DAILY Dexamethasone (Dexamethasone), 2 MG PO UD Digoxin (Digoxin), 0.125 MG PO DAILY@16 Diltiazem Hcl Ext Rel (Tiazac), 180 MG PO DAILY Dulaglutide (Trulicity), 0.75 MG INJ WK Fenofibrate (Fenofibrate), 145 MG PO DAILY Fentanyl (Fentanyl), 25 MCG TD Q3D@0900 Ferrous Sulfate (Ferrousul), 325 MG PO DAILY Furosemide (Furosemide), 80 MG PO BID Home O2 Therapy (Oxygen), 2 LITERS NA HS Levothyroxine Sodium (Levothyroxine Sodium), 112 MCG PO Q2D Lisinopril (Lisinopril), 5 MG PO DAILY Magnesium Oxide (Mg Supplement (Magnesium Oxide), 400 MG PO Q2D Multiple Vitamin (Multivitamin), 1 TAB PO DAILY Potassium Ext Rel (Klor-Con), 3 TABS PO BID Pravastatin Sodium (Pravastatin Sodium), 80 MG PO DAILY Scheduled PRN Cyclobenzaprine HCl (Cyclobenzaprine HCl), 10 MG PO HS PRN for Muscle Spasms Eszopiclone (Eszopiclone), 1 MG PO HS PRN for Sleep Hydrocodone/Acetaminophen 7.5MG/325MG (Salkum 7.5MG/325MG), 1 TAB PO Q4-6HRS PRN for Pain Metolazone (Zaroxolyn), 5 MG PO DAILY PRN for Fluid Retention Nitroglycerin (Nitrostat), 0.4 MG SL UD PRN for Chest Pain Allergies Coded Allergies: Penicillins (Verified Allergy, Intermediate, RASH, 07/28/16) PT HAD A RXN AND IT COULD NOT BE RULED OUT IF IT WAS THE PCN Physical Exam Vital Signs Date Time Temp Pulse Resp B/P (MAP) Pulse Ox O2 Delivery O2 Flow Rate FiO2 10/29/17 13:44 36.8 94 18 98/56 96 Nasal Cannula 2.0 10/29/17 13:40 86 18 112/64 96 Nasal Cannula 2.0 10/29/17 13:24 86 10/29/17 12:16 77 18 112/64 95 Nasal Cannula 2.0 10/29/17 09:41 80 10/29/17 09:40 96 Nasal Cannula 10/29/17 09:40 96 Nasal Cannula 2.0 10/29/17 09:18 61 18 92/59 95 Room Air Physical Exam GENERAL: Awake, alert, uncomfortable appearing, in no distress HENT: Normocephalic, atraumatic. Oropharynx reveals dry mucous membranes. EYES: Normal conjunctiva. Sclera non-icteric. NECK: Supple. No nuchal rigidity. FROM. No JVD. RESPIRATORY: Diminished breath sounds bilaterally. Scattered rhonchi anteriorly. CARDIAC: Regular rate, normal rhythm. Extremities warm and well perfused. Pulses equal. ABDOMEN: Soft, non-distended. No tenderness to palpation. No rebound or guarding. No masses. RECTAL: Deferred. MUSCULOSKELETAL: Chest examination reveals no tenderness. The back is symmetrical on inspection without obvious abnormality. There is no CVA tenderness to palpation. No joint edema. LOWER EXTREMITIES: Calves are equal size bilaterally and non-tender. 1+ edema bilaterally. No discoloration. NEURO: Normal sensorium. No sensory or motor deficits noted. SKIN: No rash or jaundice noted. Medical Decision & Procedures ER Provider Diagnostic Interpretation: Radiology results as stated below per my review and radiologist interpretation: CHEST ONE VIEW PORTABLE CLINICAL HISTORY: CHEST PAIN dyspnea COMPARISON STUDY: 10/19/2017 FINDINGS: Persistent moderate cardiomegaly. Bilateral pleural effusions. Unchanging to minimally improved findings of congestive failure. PICC catheter has been removed IMPRESSION: Findings of congestive failure stable to perhaps to slightly improved from the prior study. The above report was generated using voice recognition software. It may contain grammatical, syntax or spelling errors. Electronically signed by: Luis Felipe Yang M.D. 10/29/2017 10:29 AM Dictated Date/Time: 10/29/2017 10:27 AM CHEST COMBO ANGIO DISSECTION HISTORY: 57 years-old male presents with severe chest pain. COMPARISON: PET CT 10/09/2017 TECHNIQUE: CTA of the chest was obtained both with and without the use of 92 mL Optiray 320 IV contrast. 3-D coronal and sagittal MIPS were obtained from the axial data set and submitted for review. All measurements were obtained according to NASCET Criteria. A dose lowering technique was used consistent with the principals of MAHAMED. FINDINGS: CTA: Heart size is upper limits of normal. Coronary arterial calcifications are noted. There are calcifications of the mitral and aortic annulus. No intramural hematoma on the noncontrast scan. There is moderate atherosclerotic plaquing of the thoracic aorta. Imaged proximal great vessels are patent. There is no aortic dissection or aneurysm identified. There is high-grade narrowing of the inferior left pulmonary vein as seen on image 172 series 8 secondary to the bulky adenopathy as below. The opacified pulmonary arterial tree is unremarkable. CT CHEST: Mildly heterogeneous thyroid without dominant nodule. Bulky soft tissue attenuating infiltrative mass of the mediastinum suggesting conglomerate adenopathy with splaying of the ravindra is again seen measuring up to 5.6 x 10.0 x 10.1 cm extending into the bilateral hilar regions and compressing the left ventricle. This mass is predominately interposed between the descending thoracic aorta, tracheobronchial tree and left atrium extending into the right paratracheal tissues and AP window. Moderate right and [id number] left pleural effusions are again noted. There is no pneumothorax. There is bibasilar compressive atelectasis with additional patchy bibasilar consolidative and groundglass opacities, notably within the left lung base with associated bronchial wall thickening. Apparent pleural-parenchymal scarring of the inferior segment lingula redemonstrated. There is narrowing of the left mainstem bronchus secondary to aforementioned mediastinal mass. Mild layering secretions of the trachea are noted. Air-fluid level of the proximal and mid thoracic esophagus noted. Prior cholecystectomy. No acute intra-abdominal abnormality identified. Mild gastrohepatic adenopathy. Soft tissues are unremarkable. No definite suspicious lytic or blastic bony lesions. IMPRESSION: 1. No aortic dissection or aneurysm identified. 2. Bulky heterogeneous soft tissue attenuating infiltrating mass of the mediastinum suggests conglomerate adenopathy correlating with markedly FDG avid mass seen on comparison PET CT 10/09/2017. This narrows the left mainstem bronchus and inferior left pulmonary vein as above. 3. Moderate right and small to moderate left pleural effusions with compressive bibasilar atelectasis. Additional consolidative and groundglass opacities are seen notably within the left lung base suggesting associated pneumonia or aspiration pneumonitis. 4. Air-fluid level of the mid esophagus suggests reflux. The above report was generated using voice recognition software. It may contain grammatical, syntax or spelling errors. Electronically signed by: Chaitanya Cunha M.D. 10/29/2017 12:05 PM Dictated Date/Time: 10/29/2017 11:52 AM ANGIO ABD/PELVIS WITH CONTRAST CLINICAL HISTORY: Dyspnea pleural effusions TECHNIQUE: Transaxial acquisition with analysis of multi axial reformatted images COMPARISON STUDY: PET scan dated 10/09/2017 [facility] FINDINGS: Bilateral pleural effusions similar. Focal consolidative components of the right pleural effusion similar as compared to the prior exam. Liver appears generally uniform. Prior cholecystectomy. Moderate cortical scarring of the right kidney. Left kidney appears to have been resected. There is is distended and fluid-filled structure occupying the left renal fossa extending to the bowel on the left. This is unchanged in the prior study and appears to be postoperative. The complex bowel architecture in the central abdomen as remain generally similar. 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 There is stable. It is associated with mild aneurysmal dilatation of 3.5 cm maximum dimension. This is similar as compared to the prior study. There is considerable atherosclerotic change of the iliac arterial vasculature. A high-grade stenotic process, however is not appreciated. There is present 50% narrowing origin of the right superficial femoral artery. This is seen to a slightly lesser extent on the left. IMPRESSION: 1. 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 2. This is unchanged from the prior exam. 3. Chronic postoperative changes mid abdominal bowel pattern including resection of the left kidney. 4. Stable bilateral pleural effusions with moderate complexity on the right as well as noted previously. 6. No acute or interval process of the arterial vasculature. 7. 50 present narrowing of the proximal superficial femoral arteries bilaterally. 8. All findings are stable compared to the patient's prior PET scan with no evidence for an acute vascular process. The above report was generated using voice recognition software. It may contain grammatical, syntax or spelling errors. Electronically signed by: Luis Felipe Yang M.D. 10/29/2017 12:05 PM Dictated Date/Time: 10/29/2017 11:53 AM Laboratory Results 10/29/17 09:40 10/29/17 09:40 Test 10/29/17 09:40 10/29/17 10:39 Red Blood Count 4.27 M/uL (4.7-6.1) Mean Corpuscular Volume 86.7 fL (80-100) Mean Corpuscular Hemoglobin 29.0 pg (25-34) Mean Corpuscular Hemoglobin Concent 33.5 g/dl (32-36) RDW Standard Deviation 45.8 fL (36.4-46.3) RDW Coefficient of Variation 14.5 % (11.5-14.5) Mean Platelet Volume 10.7 fL (7.4-10.4) Anion Gap 8.0 mmol/L (3-11) Est Creatinine Clear Calc Drug Dose 83.6 ml/min Estimated GFR () 80.3 Estimated GFR (Non- 69.3 BUN/Creatinine Ratio 31.3 (10-20) Calcium Level 9.1 mg/dl (8.5-10.1) Total Bilirubin 0.9 mg/dl (0.2-1) Direct Bilirubin 0.4 mg/dl (0-0.2) Aspartate Amino Transf (AST/SGOT) 32 U/L (15-37) Alanine Aminotransferase (ALT/SGPT) 29 U/L (12-78) Alkaline Phosphatase 57 U/L (45-117) Pro-B-Type Natriuretic Peptide 973 pg/ml (0-900) Total Protein 7.2 gm/dl (6.4-8.2) Albumin 3.1 gm/dl (3.4-5.0) Lipase 132 U/L (73-393) Prothrombin Time 12.2 SECONDS (9.0-12.0) Prothromb Time International Ratio 1.2 (0.9-1.1) Activated Partial Thromboplast Time 34.9 SECONDS (21.0-31.0) Partial Thromboplastin Ratio 1.3 Laboratory results reviewed by me Medications Administered Medications (Trade) Dose Ordered Sig/Elizabeth Route Start Time Stop Time Status Last Admin Dose Admin Fentanyl Citrate (Fentanyl Inj) 50 mcg NOW STAT IV 10/29/17 09:39 10/29/17 09:43 DC 10/29/17 10:19 50 MCG Ondansetron HCl (Zofran Inj) 4 mg NOW STAT IV 10/29/17 09:39 10/29/17 09:44 DC 10/29/17 10:19 4 MG Albuterol/ Ipratropium (Duoneb) 3 ml NOW STAT INH 10/29/17 09:39 10/29/17 09:44 DC 10/29/17 09:56 3 ML Sodium Chloride 500 ml @ 100 mls/hr Q5H STAT IV 10/29/17 11:18 10/29/17 16:17 DC 10/29/17 12:17 100 MLS/HR ECG Indication: chest pain Rate (beats per minute): 100 Rhythm: atrial fibrillation Findings: other (Poor baseline secondary to artifact, normal axis) Comparison ECG Date: 19 Oct 2017 Change: no significant change ED Course 0932: The patient was evaluated in room B6. A complete history and physical exam was performed. 1319: Upon reexamination, the patient was resting. I discussed the test results and treatment plan with him. I discussed the patient's case with [facility]. The patient will be evaluated for further management. Medical Decision I reviewed the patient's past medical history, medications, and the nursing notes as described above. Differential diagnosis includes but is not limited to: worsening lung malignancy , worsening mass effect on the aorta, ACS, CHF, pneumonia, bronchitis, and pulmonary embolism. The patient is a 57-year-old gentleman with a past medical history of extensive small cell lung cancer with mass effect on the aorta who presents to the emergency department with persistent chest pain since Sunday night with shortness of breath. History of present illness. The patient is mildly uncomfortable but no acute distress, afebrile with SBP 90s but otherwise stable vital signs. BP improved to SBP 100s with gentle IVF hydration. CTA shows stable findings including mass effect from mediastinal mass on left mainstem bronchus and inferior left pulmonary vein which appears similar to 10/17 study. Labs notable for a worsening leukopenia from recent, 0.18 from 1.2 Otherwise labs unremarkable including negative trop and BNP wnl. Given the patient's extensive pulmonary malignancy causing the patient worsening symptoms will admit the patient for further management. Considering the patient is afebrile will hold antibiotics at this time and will defer to admitting team. Case was discussed with [facility] who will admit the patient for further management. Medication Reconcilliation Current Medication List: was personally reviewed by me Blood Pressure Screening Patient's blood pressure: Low blood pressure Consults Time Called: 1315 [facility]ing Phys[facility] Returned Call: 1310 I discussed the patient with them - they will evaluate the patient for further treatment. Impression Primary Impression: Substernal chest pain Additional Impressions: SOB (shortness of breath) Small cell lung cancer Scribe Attestation The scribe's documentation has been prepared under my direction and personally reviewed by me in its entirety. I confirm that the note above accurately reflects all work, treatment, procedures, and medical decision making performed by me. Departure Information Dispostion Being Evaluated By Hospitalist Referrals No Doctor, Assigned (PCP) Patient Instructions My [facility] Problem Qualifiers
[2017-10-29] MEDS ORDERED: OPTIRAY 320 IV PRN (09:45)
--- NOTE | 2017-10-29 10:30 | DIAGNOSTIC IMAGING REPORT ---
CHEST ONE VIEW PORTABLE CLINICAL HISTORY: CHEST PAIN dyspnea COMPARISON STUDY: 10/19/2017 FINDINGS: Persistent moderate cardiomegaly. Bilateral pleural effusions. Unchanging to minimally improved findings of congestive failure. PICC catheter has been removed IMPRESSION: Findings of congestive failure stable to perhaps to slightly improved from the prior study. The above report was generated using voice recognition software. It may contain grammatical, syntax or spelling errors. Electronically signed by: Luis Felipe Yang M.D. 10/29/2017 10:29 AM Dictated Date/Time: 10/29/2017 10:27 AM
[2017-10-29 10:38] LABS: ALT/SGPT 29 U/L (12-78); BLOOD UREA NITROGEN 37 mg/dl (7-18); BUN/CREATININE RATIO 31.3 (10-20); CALCIUM 9.1 mg/dl (8.5-10.1); CARBON DIOXIDE 29 mmol/L (21-32); CHLORIDE 94 mmol/L (98-107); CREATININE 1.17 mg/dl (0.60-1.40); GLUCOSE 112 mg/dl (70-99); POTASSIUM 4.4 mmol/L (3.5-5.1); SODIUM 132 mmol/L (136-145)
[2017-10-29 10:43] LABS: ALKALINE PHOSPHATASE 57 U/L (45-117); AST/SGOT 32 U/L (15-37)
[2017-10-29 10:56] LABS: MEAN CELL VOLUME 86.7 fL (80-100); MEAN CORPUSCULAR HGB CONC 33.5 g/dl (32-36); MEAN PLATELET VOLUME 10.7 fL (7.4-10.4); PLATELET COUNT 103 K/uL (130-400); RED BLOOD COUNT 4.27 M/uL (4.7-6.1); WHITE BLOOD COUNT 0.18 K/uL (4.8-10.8)
[2017-10-29] MEDS ORDERED: SODIUM CHLORIDE 0.9% 500ML 500 ML IV STA (11:18)
[2017-10-29 11:25] LABS: INR 1.2 (0.9-1.1); PARTIAL THROMBOPLASTIN RATIO 1.3; PROTHROMBIN TIME (PATIENT) 12.2 SECONDS (9.0-12.0)
--- NOTE | 2017-10-29 12:06 | DIAGNOSTIC IMAGING REPORT ---
ANGIO ABD/PELVIS WITH CONTRAST CLINICAL HISTORY: Dyspnea pleural effusions TECHNIQUE: Transaxial acquisition with analysis of multi axial reformatted images COMPARISON STUDY: PET scan dated 10/09/2017 [facility] FINDINGS: Bilateral pleural effusions similar. Focal consolidative components of the right pleural effusion similar as compared to the prior exam. Liver appears generally uniform. Prior cholecystectomy. Moderate cortical scarring of the right kidney. Left kidney appears to have been resected. There is is distended and fluid-filled structure occupying the left renal fossa extending to the bowel on the left. This is unchanged in the prior study and appears to be postoperative. The complex bowel architecture in the central abdomen as remain generally similar. 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 There is stable. It is associated with mild aneurysmal dilatation of 3.5 cm maximum dimension. This is similar as compared to the prior study. There is considerable atherosclerotic change of the iliac arterial vasculature. A high-grade stenotic process, however is not appreciated. There is present 50% narrowing origin of the right superficial femoral artery. This is seen to a slightly lesser extent on the left. IMPRESSION: 1. 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 2. This is unchanged from the prior exam. 3. Chronic postoperative changes mid abdominal bowel pattern including resection of the left kidney. 4. Stable bilateral pleural effusions with moderate complexity on the right as well as noted previously. 6. No acute or interval process of the arterial vasculature. 7. 50 present narrowing of the proximal superficial femoral arteries bilaterally. 8. All findings are stable compared to the patient's prior PET scan with no evidence for an acute vascular process. The above report was generated using voice recognition software. It may contain grammatical, syntax or spelling errors. Electronically signed by: Luis Felipe Yang M.D. 10/29/2017 12:05 PM Dictated Date/Time: 10/29/2017 11:53 AM
--- NOTE | 2017-10-29 12:07 | DIAGNOSTIC IMAGING REPORT ---
CHEST COMBO ANGIO DISSECTION HISTORY: 57 years-old male presents with severe chest pain. COMPARISON: PET CT 10/09/2017 TECHNIQUE: CTA of the chest was obtained both with and without the use of 92 mL Optiray 320 IV contrast. 3-D coronal and sagittal MIPS were obtained from the axial data set and submitted for review. All measurements were obtained according to NASCET Criteria. A dose lowering technique was used consistent with the principals of MAHAMED. FINDINGS: CTA: Heart size is upper limits of normal. Coronary arterial calcifications are noted. There are calcifications of the mitral and aortic annulus. No intramural hematoma on the noncontrast scan. There is moderate atherosclerotic plaquing of the thoracic aorta. Imaged proximal great vessels are patent. There is no aortic dissection or aneurysm identified. There is high-grade narrowing of the inferior left pulmonary vein as seen on image 172 series 8 secondary to the bulky adenopathy as below. The opacified pulmonary arterial tree is unremarkable. CT CHEST: Mildly heterogeneous thyroid without dominant nodule. Bulky soft tissue attenuating infiltrative mass of the mediastinum suggesting conglomerate adenopathy with splaying of the ravindra is again seen measuring up to 5.6 x 10.0 x 10.1 cm extending into the bilateral hilar regions and compressing the left ventricle. This mass is predominately interposed between the descending thoracic aorta, tracheobronchial tree and left atrium extending into the right paratracheal tissues and AP window. Moderate right and [id number] left pleural effusions are again noted. There is no pneumothorax. There is bibasilar compressive atelectasis with additional patchy bibasilar consolidative and groundglass opacities, notably within the left lung base with associated bronchial wall thickening. Apparent pleural-parenchymal scarring of the inferior segment lingula redemonstrated. There is narrowing of the left mainstem bronchus secondary to aforementioned mediastinal mass. Mild layering secretions of the trachea are noted. Air-fluid level of the proximal and mid thoracic esophagus noted. Prior cholecystectomy. No acute intra-abdominal abnormality identified. Mild gastrohepatic adenopathy. Soft tissues are unremarkable. No definite suspicious lytic or blastic bony lesions. IMPRESSION: 1. No aortic dissection or aneurysm identified. 2. Bulky heterogeneous soft tissue attenuating infiltrating mass of the mediastinum suggests conglomerate adenopathy correlating with markedly FDG avid mass seen on comparison PET CT 10/09/2017. This narrows the left mainstem bronchus and inferior left pulmonary vein as above. 3. Moderate right and small to moderate left pleural effusions with compressive bibasilar atelectasis. Additional consolidative and groundglass opacities are seen notably within the left lung base suggesting associated pneumonia or aspiration pneumonitis. 4. Air-fluid level of the mid esophagus suggests reflux. The above report was generated using voice recognition software. It may contain grammatical, syntax or spelling errors. Electronically signed by: Chaitanya Cunha M.D. 10/29/2017 12:05 PM Dictated Date/Time: 10/29/2017 11:52 AM
[2017-10-29 13:40] VITALS: BP 112/64; PULSE 86; O2SAT 96; Ht 177.8 cm; Wt 104.4 kg
[2017-10-29] MEDS ORDERED: MoRPHine SULFATE 4 MG/ML 1 ML CARP\\VIAL IV STA (14:20)
[2017-10-29] MEDS ORDERED: FUROSEMIDE 40 MG/4 ML VIAL IV STA (14:53)
[2017-10-29] MEDS ORDERED: ACETAMINOPHEN 325 MG TAB PO PRN (15:00)
[2017-10-29] MEDS ORDERED: GLUCOSE 10 TABS/TUBE PO PRN (15:00)
[2017-10-29] MEDS ORDERED: GLUCAGON FOR INJ 1 MG VIAL SQ PRN (15:00)
[2017-10-29] MEDS ORDERED: GLUCOSE 40% GEL 15 GM TUBE PO PRN (15:00)
[2017-10-29] MEDS ORDERED: DEXTROSE 50% 50 ML SYR IV PRN (15:00)
[2017-10-29] MEDS ORDERED: POLYETHYLENE (MIRALAX) 17 GM PACK PO PRN (15:00)
[2017-10-29] MEDS ORDERED: ESZOPICLONE 1 MG TAB PO PRN (15:15)
[2017-10-29] MEDS ORDERED: NITROGLYCERIN 0.4 MG SL PER TAB CHARGE SL PRN (15:15)
[2017-10-29] MEDS ORDERED: POTA20TA16 PO (15:24)
[2017-10-29 16:41] LABS: MAGNESIUM 1.8 mg/dl (1.8-2.4); THYROID STIMULATING HORMONE 0.899 uIu/ml (0.300-4.500)
[2017-10-29] MEDS ORDERED: LISINOPRIL 5 MG TAB PO ONE (17:00)
[2017-10-29 20:00] VITALS: O2SAT 98
[2017-10-29] MEDS: MoRPHine SULFATE 4 MG/ML 1 ML CARP\\VIAL IV PRN ×2 (20:56→23:49)
[2017-10-29] MEDS: APIXABAN 2.5 MG TAB PO SCH (20:56)
[2017-10-29] MEDS: INSULIN ASPART 100 UNITS/ML 3 ML PEN SC SCH (20:57)
[2017-10-29 21:51] LABS: CKMB/CK RATIO 3.7 (0-3.0)
[2017-10-29] MEDS: PRAVASTATIN SOD 40 MG TAB PO SCH (23:42)
[2017-10-29] MEDS: CHECK FENTANYL PATCH PLACEMENT SCH (23:43)
--- NOTE | 2017-10-29 23:48 | History and Physical ---
History & Physical Date & Time of Service: Oct 29, 2017 at 23:09 Chief Complaint: Dyspnea Primary Care Physician: Drew James D.O. History of Present Illness Source: patient, clinic records, hospital records Pt is 57 y/o M with PMH A-fib with failed cardioversion, diastolic CHF, CKD III , hx renal CA s/p nephrectomy, hx small cell lung CA presented to ER with c/o worsening SOB, CP x 2 days. Pt was hospitalized 10/17/17- 10/27/17 for CP, dysphagia. Pt states constant CP mid and upper central chest and worsened with movement, deep inspiration and being supine. Improved with sitting upright and not moving. Tried oxycodone and nitro without much relief. States this pain is higher than it was last admission. Has been wearing O2 NC @ 2L constantly past 2 days. Had chemo last week. Pt states was to have radiation today, however when supine had increased CP, so was sent to ER. Pt states dysphagia has improved from d/c and was able to eat peanut butter sandwich last night. Taking his pills with applesauce. Able to drink liquids. Denies choking. C/O continued spitting up foamy mucous, worse after eating. Chronic cough productive cadena, denies any worsening or changes. Denies increased LE edema. Hx chronic abdominal pain, denies worsening. Was d/c on dexamethasone taper, however pt didn't get from pharmacy yet. Denies fever/chills, diaphoresis, vomiting, diarrhea, constipation, melena, hematochezia, dizziness, syncope, vision changes , palpitations, sore throat, otalgia, rhinorrhea,paresthesias, weakness, rashes , urinary symptoms. In ER afebrile. Worsening leukopenia WBC: 0.18 (was 1.28 3 days ago). Negative troponin. CT angio chest: No aortic dissection or aneurysm identified. Bulky heterogeneous soft tissue attenuating infiltrating mass of the mediastinum suggests conglomerate adenopathy correlating with markedly FDG avid mass seen on comparison PET CT 10/09/2017. This narrows the left mainstem bronchus and inferior left pulmonary vein. EKG: a-fib rate 78, RBBB Past Medical/Surgical History Medical Problems: (1) Abdominal pain Status: Chronic (2) Acute on chronic diastolic heart failure Status: Resolved (3) GENE (acute kidney injury) Status: Resolved (4) Anticoagulants,Lt,Current Use Status: Chronic (5) Atrial fibrillation Status: Chronic (6) Atrial fibrillation Status: Chronic (7) CKD (chronic kidney disease), stage III Status: Chronic (8) Congestive Heart Failure Nos Status: Chronic (9) Coronary Atherosclerosis Of [place] Coronary Vessel Status: Chronic (10) Diabetes mellitus type 2 Status: Chronic (11) Diastolic heart failure Status: Chronic (12) DM type 2 (diabetes mellitus, type 2) Status: Chronic (13) HTN (hypertension) Status: Chronic (14) Hyperlipidemia Status: Chronic (15) Hypertensive disorder, systemic arterial Status: Chronic (16) Hypotension Status: Resolved (17) Hypothyroidism Status: Chronic (18) Hypothyroidism Status: Chronic (19) Obstructive Sleep Apnea (Adult) (Pediatric) Status: Chronic (20) Renal cell carcinoma Status: Resolved (21) Renal insufficiency Status: Resolved (22) Renal insufficiency Status: Chronic (23) Sleep apnea Status: Chronic Surgical Problems: (1) S/p nephrectomy Status: Resolved Family History Diabetes mellitus MOTHER FH: CAD (coronary artery disease) FATHER FH: cancer SISTER (possible uterine CA) Stroke FATHER MOTHER Social History Smoking Status: Former Smoker Smokeless Tobacco Use: No Drug Use: none Marital Status: single Housing status: lives alone Occupational Status: disabled Immunizations History of Influenza Vaccine: Yes Influenza Vaccine Date: Sep 18, 2013 History of Tetanus Vaccine?: Unknown History of Pneumococcal: No History of Hepatitis B Vaccine: Unknown Allergies Coded Allergies: Penicillins (Verified Allergy, Intermediate, RASH, 07/28/16) PT HAD A RXN AND IT COULD NOT BE RULED OUT IF IT WAS THE PCN Home Medications Scheduled Apixaban (Eliquis), 5 MG PO BID Cholecalciferol (Vitamin D3 Super Strength), 2,000 INTER.UNIT PO DAILY Dexamethasone (Dexamethasone), 2 MG PO UD Digoxin (Digoxin), 0.125 MG PO DAILY@16 Diltiazem Hcl Ext Rel (Tiazac), 180 MG PO DAILY Dulaglutide (Trulicity), 0.75 MG INJ WK Fenofibrate (Fenofibrate), 145 MG PO DAILY Fentanyl (Fentanyl), 25 MCG TD Q3D@0900 Ferrous Sulfate (Ferrousul), 325 MG PO DAILY Furosemide (Furosemide), 80 MG PO BID Home O2 Therapy (Oxygen), 2 LITERS NA HS Levothyroxine Sodium (Levothyroxine Sodium), 112 MCG PO Q2D Lisinopril (Lisinopril), 5 MG PO DAILY Magnesium Oxide (Mg Supplement (Magnesium Oxide), 400 MG PO Q2D Multiple Vitamin (Multivitamin), 1 TAB PO DAILY Potassium Ext Rel (Klor-Con), 3 TABS PO BID Pravastatin Sodium (Pravastatin Sodium), 80 MG PO DAILY Scheduled PRN Cyclobenzaprine HCl (Cyclobenzaprine HCl), 10 MG PO HS PRN for Muscle Spasms Eszopiclone (Eszopiclone), 1 MG PO HS PRN for Sleep Hydrocodone/Acetaminophen 7.5MG/325MG ([place] 7.5MG/325MG), 1 TAB PO Q4-6HRS PRN for Pain Metolazone (Zaroxolyn), 5 MG PO DAILY PRN for Fluid Retention Nitroglycerin (Nitrostat), 0.4 MG SL UD PRN for Chest Pain Review of Systems Constitutional: No fever, No chills, No sweats Eyes: No eye pain, No redness, No discharge ENT: No unusual epistaxis, No nasal symptoms, No sore throat Respiratory: + problem reported (see HPI. Denies hemoptysis) Cardiovascular: + problem reported (see HPI) Abdomen: + problem reported (see HPI) Musculoskeletal: No calf pain Genitourinary - Male: No hematuria, No dysuria, No urinary frequency, No urinary urgency Neurologic: No paralysis, No weakness, No numbness/tingling, No vertigo Psychiatric: No depression symptoms, No anxiety Endocrine: No excessive thirst, No excessive urination Integumentary: No rash, No itch Physical Exam Vital Signs Date Time Temp Pulse Resp B/P (MAP) Pulse Ox O2 Delivery O2 Flow Rate FiO2 10/29/17 20:00 98 Nasal Cannula 2.0 10/29/17 15:15 78 18 102/56 98 10/29/17 13:44 36.8 94 18 98/56 96 Nasal Cannula 2.0 10/29/17 13:40 86 18 112/64 96 Nasal Cannula 2.0 10/29/17 13:24 86 10/29/17 12:16 77 18 112/64 95 Nasal Cannula 2.0 10/29/17 09:41 80 10/29/17 09:40 96 Nasal Cannula 10/29/17 09:40 96 Nasal Cannula 2.0 10/29/17 09:18 61 18 92/59 95 Room Air General Appearance: + mild distress, + pertinent finding (chronic ill appearance, non-toxic appearance) Head: normocephalic, atraumatic Eyes: normal inspection, PERRL, EOMI, sclerae normal ENT: hearing grossly normal, pharynx normal (mucous membranes moist) Neck: supple, no JVD, trachea midline Respiratory/Chest: chest non-tender, no respiratory distress, no accessory muscle use, + decreased breath sounds (bases bilaterally) Cardiovascular: no murmur, + irregularly irregular Abdomen/GI: normal bowel sounds, non tender, soft, + pertinent finding (+ healed surgical scar) Extremities/Musculoskelatal: no calf tenderness, normal capillary refill, non- tender, + pedal edema (mild bilaterally) Neurologic/Psych: alert, normal mood/affect, oriented x 3 Skin: normal color, warm/dry Diagnostics Laboratory Results Results Past 24 Hours Test 10/29/17 09:40 10/29/17 10:39 10/29/17 15:54 10/29/17 20:43 Range/Units White Blood Count 0.18 4.8-10.8 K/uL Red Blood Count 4.27 4.7-6.1 M/uL Hemoglobin 12.4 14.0-18.0 g/dL Hematocrit 37.0 42-52 % Mean Corpuscular Volume 86.7 80-100 fL Mean Corpuscular Hemoglobin 29.0 25-34 pg Mean Corpuscular Hemoglobin Concent 33.5 32-36 g/dl RDW Standard Deviation 45.8 36.4-46.3 fL RDW Coefficient of Variation 14.5 11.5-14.5 % Platelet Count 103 130-400 K/uL Mean Platelet Volume 10.7 7.4-10.4 fL Sodium Level 132 136-145 mmol/L Potassium Level 4.4 3.5-5.1 mmol/L Chloride Level 94 98-107 mmol/L Carbon Dioxide Level 29 21-32 mmol/L Anion Gap 8.0 3-11 mmol/L Blood Urea Nitrogen 37 7-18 mg/dl Creatinine 1.17 0.60-1.40 mg/dl Est Creatinine Clear Calc Drug Dose 83.6 ml/min Estimated GFR () 80.3 Estimated GFR (Non- 69.3 BUN/Creatinine Ratio 31.3 10-20 Random Glucose 112 70-99 mg/dl Calcium Level 9.1 8.5-10.1 mg/dl Total Bilirubin 0.9 0.2-1 mg/dl Direct Bilirubin 0.4 0-0.2 mg/dl Aspartate Amino Transf (AST/SGOT) 32 15-37 U/L Alanine Aminotransferase (ALT/SGPT) 29 12-78 U/L Alkaline Phosphatase 57 45-117 U/L Troponin I < 0.015 < 0.015 0-0.045 ng/ml Pro-B-Type Natriuretic Peptide 973 0-900 pg/ml Total Protein 7.2 6.4-8.2 gm/dl Albumin 3.1 3.4-5.0 gm/dl Lipase 132 73-393 U/L Prothrombin Time 12.2 9.0-12.0 SECONDS Prothromb Time International Ratio 1.2 0.9-1.1 Activated Partial Thromboplast Time 34.9 21.0-31.0 SECONDS Partial Thromboplastin Ratio 1.3 Magnesium Level 1.8 1.8-2.4 mg/dl Total Creatine Kinase 42 39-308 U/L Creatine Kinase MB 1.7 0.5-3.6 ng/ml Creatine Kinase MB Ratio 4.0 0-3.0 Thyroid Stimulating Hormone (TSH) 0.899 0.300-4.500 uIu/ml Digoxin Level 0.8 0.8-2.0 ng/ml Bedside Glucose 147 70-99 mg/dl Test 10/29/17 21:06 Range/Units Total Creatine Kinase 38 39-308 U/L Creatine Kinase MB 1.4 0.5-3.6 ng/ml Creatine Kinase MB Ratio 3.7 0-3.0 Troponin I < 0.015 0-0.045 ng/ml Diagnostic Radiology ANGIO ABD/PELVIS WITH CONTRAST IMPRESSION: 1. 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 2. This is unchanged from the prior exam. 3. Chronic postoperative changes mid abdominal bowel pattern including resection of the left kidney. 4. Stable bilateral pleural effusions with moderate complexity on the right as well as noted previously. 6. No acute or interval process of the arterial vasculature. 7. 50 present narrowing of the proximal superficial femoral arteries bilaterally. 8. All findings are stable compared to the patient's prior PET scan with no evidence for an acute vascular process. CXR: IMPRESSION: Findings of congestive failure stable to perhaps to slightly improved from the prior study. CHEST COMBO ANGIO DISSECTION IMPRESSION: 1. No aortic dissection or aneurysm identified. 2. Bulky heterogeneous soft tissue attenuating infiltrating mass of the mediastinum suggests conglomerate adenopathy correlating with markedly FDG avid mass seen on comparison PET CT 10/09/2017. This narrows the left mainstem bronchus and inferior left pulmonary vein as above. 3. Moderate right and small to moderate left pleural effusions with compressive bibasilar atelectasis. Additional consolidative and groundglass opacities are seen notably within the left lung base suggesting associated pneumonia or aspiration pneumonitis. 4. Air-fluid level of the mid esophagus suggests reflux. EKG EKG: Atrial fibrillation Right bundle branch block Cannot rule out Septal infarct ST elevation, consider anterior injury pattern Abnormal ECG When compared with ECG of 29-OCT-2017 09:45, ST elevation now present in Anterior leads Confirmed by HILDA GONZALEZ ([id number]) on 10/29/2017 11:16:46 AM Impression Assessment and Plan SOB/CP Pt with hx small cell CA with mediastinal mass. Worsening pleural effusions noted. Suspect worsening CP/SOB from increased pleural effusions vs mass causing symptoms. Afebrile. Negative initial troponin. EKG: a-fib rate 78. Pt improved with swallowing from previous admission. Will continue to monitor. -trend cardiac enzymes -hold ASA as currently thrombocytopenic -pulmonology consult -oncology consult -fentanyl patch -morphine prn breakthrough pain -hold home flexeril and norco -repeat cbc, prp in am LEUKOPENIA Pt received chemo last week. WBC: 0.18, was 1.28 on 10/26/17 -neutropenic precautions -repeat cbc in am A-Fib currently rate controlled. Dig level: 0.8 -continue eliquis -continue Cardizem -continue digoxin CAD negative troponin. Lipid panel: 10/18/17 - total: 123, LDL: 33, HDL: 48, Tri -trend troponin -continue pravastatin DIASTOLIC HF -lasix IV CKD III Cr: 1.17 -avoid nephrotoxic agents DM A1c6.3 on 10/18/17 -hold triplicity -novalog sliding scale per protocol HTN -lisinopril HYPOTHYROIDISM TSH: 0.89 -continue levothyroxine SLEEP APENA Pt reports doesn't tolerate CPAP, has tried in past DVT PROPHYLAXIS -SCD's DISPOSITION -admit tele -DNR, DNI as per discussion with pt -Follows with Dr James for routine care Pt was seen with Dr Keys. See addendum ADDENDUM: The patient was examined and I agree with the assessment and plan as above with the following exceptions. CXR findings, in addition to known h/o diastolic function and level of discomfort seemed consistent with a mild diastolic heart failure. Recent TTE was just performed, decreased breath sounds on exam, heart exam normal, no JVD, some trace edema in legs bilaterally. Decided to start Lasix IV BID to help with breathing and help resolve hypoxia. Apprec pulm input into the need for a thoracentesis. Case was discussed with Oncology who will be seeing him shortly. Continuing narcs to help with pain-morphine appears to be working well. Of note, no XRT was performed yet on him. DO Massimo Level of Care Telemetry Advanced Directives Existing Living Will: Yes Existing Power of Ore Trimmer: No Resuscitation Status DO NOT RESUSCITATE VTE Prophylaxis VTE Risk Assessment Done? Y/N: Yes Risk Level: Moderate Given or contraindicated: SCD's, Contraindicated Additional Copies To Drew James D.O.
[2017-10-30] VITALS (7 sets, daily range): BP systolic 77–103; BP diastolic 43–73; PULSE 61–98; TEMP 36.5–36.8; O2SAT 92–98
[2017-10-30] MEDS: INSULIN ASPART 100 UNITS/ML 3 ML PEN SC SCH ×4 (07:00→20:45)
[2017-10-30 07:04] LABS: HEMATOCRIT 31.3 % (42-52); MEAN CELL VOLUME 86.5 fL (80-100); MEAN CORPUSCULAR HEMOGLOBIN 28.7 pg (25-34); MEAN CORPUSCULAR HGB CONC 33.2 g/dl (32-36); MEAN PLATELET VOLUME 10.8 fL (7.4-10.4); PLATELET COUNT 73 K/uL (130-400); RED BLOOD COUNT 3.62 M/uL (4.7-6.1); WHITE BLOOD COUNT 0.22 K/uL (4.8-10.8)
[2017-10-30 07:11] LABS: CALCIUM 8.9 mg/dl (8.5-10.1); CREATININE 0.95 mg/dl (0.60-1.40); MAGNESIUM 1.8 mg/dl (1.8-2.4)
[2017-10-30] MEDS: MAGNESIUM OXIDE 400 MG TAB PO SCH (07:38)
[2017-10-30] MEDS: CHOLECALCIFEROL 1000 INTER.UNIT TAB PO SCH (07:38)
[2017-10-30] MEDS: FENOFIBRATE 145 MG TAB PO SCH (07:38)
[2017-10-30] MEDS: APIXABAN 2.5 MG TAB PO SCH ×2 (07:39→19:36)
[2017-10-30] MEDS: LEVOTHYROXINE 112 MCG TAB PO SCH (07:39)
[2017-10-30] MEDS: MULTIVITAMIN TAB PO SCH (07:39)
[2017-10-30] MEDS: LISINOPRIL 5 MG TAB PO SCH (07:39)
[2017-10-30] MEDS: DILTIAZEM HCL (TIAzac) 180 MG CAPCR PO SCH (07:39)
[2017-10-30] MEDS: CHECK FENTANYL PATCH PLACEMENT SCH ×3 (07:42→23:26)
--- NOTE | 2017-10-30 08:47 | Clinical Documentation Query ---
QUERY 1 OF [address] MEDEL, In your clinical opinion is this patient being managed for: ( x ) Acute on chronic diastolic CHF ( ) Not Agree ( ) Other explanation of clinical findings (Please Explain) ( ) Unable to determine (Please Define) ( ) Need to Discuss The medical record reflects the following clinical findings, treatment, and risk factors. Clinical Indicators: 57 yo male presenting with upper chest pain. Documentation in the H/P indicates " CXR findings, in addition to known h/o diastolic function and level of discomfort seemed consistent with a mild diastolic heart failure." BNP 973. Pt also with trace edema in legs bilaterally. Treatment: tele, O2 support, IV lasix bid, I/O, daily wts Risk Factors: Afib, HTN, DM, CAD, lung cancer, [place] QUERY 2 OF 2 In your clinical opinion is this patient being managed for: ( x ) pancytopenia due to chemotherapy ( ) Not Agree ( ) Other explanation of clinical findings (Please Explain) ( ) Unable to determine (Please Define) ( ) Need to Discuss The medical record reflects the following clinical findings, treatment, and risk factors. Clinical Indicators: 57 yo male with lung cancer currently receiving chemotherapy treatments. WBC 0.18, Hgb 12.4, Hct 37, plts 103 Treatment: neutropenic precautions, monitor CBC, O2 support, tele, Risk Factors: lung cancer and receiving chemotherapy treatments Please clarify and document your clinical opinion in the progress notes and discharge summary. Terms such as "probable", "suspected", "likely", "questionable", "possible", or "still to be ruled out" are acceptable. IF IN AGREEMENT, YOU MUST DOCUMENT ABOVE DIAGNOSTIC STATEMENT IN DAILY PROGRESS NOTES AND DISCHARGE SUMMARY. This document is not part of the patient's record. Thank You, Saranya Dominguez, [place] [phone]
[2017-10-30] MEDS ORDERED: FUROSEMIDE INJ 40 MG in SYRINGE 0 ML IV SCH (09:00)
--- NOTE | 2017-10-30 09:34 | Pulmonary Consultation ---
History General Date of Service: Oct 30, 2017. Stated Complaint: Dyspnea HPI The patient is a 57 year old male who presents to [facility] with complaints of Dyspnea. The patient's primary care provider is Drew James D.O.. Patient is a 57 yo male with history of Diastolic CHF, CKD III, Renal CA s/p Nephrectomy, recently diagnosed Small cell lung CA with likely extensive involvement, and Afib failed cardioversion who presented to the ED with concern of increasing SOB and chest pain. The patient states that his chest pain is still present especially with deep breath. He has been taking shallow breaths which helps the pain. He states that he coughs up some cadena sputum on and off, but no hemoptysis. He has continued SOB. He was recently started on chemotherapy. The patient was recently admitted at the end of September for dysphagia at which time he was evaluated by Dr. Britt. The patient had a PET/CT scan on which showed large bulky mediastinal lymphadenopathy with extension into the left hilar region with central necrosis and mass-effect causing dilatation of the proximal esophagus. 3.9 cm necrotic right upper lobe paratracheal lymph node was noted to be metabolically active, and LLL nodule suspicious for disease extension was also noted. No evidence of metastatic disease in the abdomen or pelvis was seen. Patient was started on chemotherapy during previous admission and anticipated to begin radiation. Since admission, the patient was noted to have pancytopenia with severe leukopenia. He is currently on Neutropenic precautions. The patient does have cochlear implants, and unfortunately the battery . His daughter is bringing in new batteries soon. I wrote down questions/statements during exam to have a discussion with the patient this morning. I did discuss this patient with Dr. Pacheco briefly. Labs since admission were reviewed. Sputum culture showing normal rao. WBC 0.18 on admission, 0.22 today. BUN 28. Creatinine 0.95 CT for dissection showed bulky heterogeneous soft tissue mass of the mediastinum with conglomerate adenopathy, and narrowing of the left main stem. Consolidative and groudglass opacities are seen notably within the left lung base suggesting associated pneumonia or aspiration pneumonitis. These images were viewed and reviewed with Dr. Gonzalez Historian: patient Review of Systems Constitutional: denies: fever Eyes: denies: eye pain ENT: reports: loss of hearing (chronic- cochlear implants) Cardiovascular: reports: chest pain, chest pressure, denies: edema Respiratory: reports: cough, shortness of breath, sputum production (cadena), denies: hemoptysis Gastrointestinal: denies: vomiting Genitourinary - Male: denies: dysuria Integumentary: denies: rash All Other Symptoms All Other Systems: Reviewed and Negative Past Medical History Past Medical History: Medical Problems: (1) Abdominal pain (2) Acute on chronic diastolic heart failure (3) GENE (acute kidney injury) (4) Anticoagulants,Lt,Current Use (5) Atrial fibrillation (6) Atrial fibrillation (7) CKD (chronic kidney disease), stage III (8) Congestive Heart Failure Nos (9) Coronary Atherosclerosis Of [place] Coronary Vessel (10) Diabetes mellitus type 2 (11) Diastolic heart failure (12) DM type 2 (diabetes mellitus, type 2) (13) Dyspnea (14) Hemoptysis (15) HTN (hypertension) (16) Hyperlipidemia (17) Hypertensive disorder, systemic arterial (18) Hypotension (19) Hypothyroidism (20) Hypothyroidism (21) Obstructive Sleep Apnea (Adult) (Pediatric) (22) possible ileus (23) Renal cell carcinoma (24) Renal insufficiency (25) Renal insufficiency (26) Sleep apnea Surgical Problems: (1) S/p nephrectomy Family History Diabetes mellitus MOTHER FH: CAD (coronary artery disease) FATHER FH: cancer SISTER (possible uterine CA) Stroke FATHER MOTHER Social History Hx Tobacco Use In Past Year?: No Smoking Status: Former Smoker Marital status: single Housing status: lives alone Occupational Status: disabled Immunizations History of Influenza Vaccine: Yes Influenza Vaccine Date: Sep 18, 2013 History of Tetanus Vaccine?: Unknown History of Pneumococcal: No History of Hepatitis B Vaccine: Unknown Allergies Coded Allergies: Penicillins (Verified Allergy, Intermediate, RASH, 07/28/16) PT HAD A RXN AND IT COULD NOT BE RULED OUT IF IT WAS THE PCN Current Medications Reported Home Medications Medications Dose Route/Sig Max Daily Dose Days Date Category Dose Instructions Klor-Con (Potassium Chloride) 20 Meq Tabcr 3 Tabs PO BID 10/29/17 Reported Nitrostat (Nitroglycerin) 0.4 Mg/1 Tab Subl 0.4 Mg SL UD PRN 30 10/26/17 Rx Dexamethasone 1 Mg Tab 2 Mg PO UD 10 10/26/17 Rx 1 po twice daily for 5 days and then 1 po daily for 5 days Fentanyl 25 Mcg Tdsy 25 Mcg TD Q3D@0900 30 10/26/17 Rx Digoxin 0.125 Mg Tab 0.125 Mg PO DAILY@16 30 10/26/17 Rx Fletcher 7.5MG/325MG (Acetaminophen/Hydrocodone Bitart) Tab 1 Tab PO Q4-6HRS PRN 10 10/26/17 Rx Tiazac (Diltiazem HCl) 180 Mg Capcr 180 Mg PO DAILY 10/17/17 Reported Eliquis (Apixaban) 5 Mg Tab 5 Mg PO BID 10/17/17 Reported Ferrousul (Ferrous Sulfate) 325 Mg Tab 325 Mg PO DAILY 07/08/17 Reported Vitamin D3 Super Strength (Cholecalciferol) 2,000 Unit Tab 2,000 Inter.unit PO DAILY 07/08/17 Reported Trulicity (Dulaglutide) 0.75 Mg/0.5 Ml Inj 0.75 Mg INJ WK 07/08/17 Reported ADMINISTER EVERY SUNDAY Cyclobenzaprine HCl 10 Mg Tab 10 Mg PO HS PRN 07/08/17 Reported Furosemide 80 Mg Tab 80 Mg PO BID 07/08/17 Reported Lisinopril 5 Mg Tab 5 Mg PO DAILY 07/08/17 Reported Eszopiclone 1 Mg Tab 1 Mg PO HS PRN 07/08/17 Reported Levothyroxine Sodium 112 Mcg Tab 112 Mcg PO Q2D 07/08/17 Reported Fenofibrate 145 Mg Tab 145 Mg PO DAILY 07/19/15 Reported Zaroxolyn (Metolazone) 5 Mg Tab 5 Mg PO DAILY PRN 02/19/15 Reported Oxygen Gas 2 Liters NA HS 03/05/14 Reported Pravastatin Sodium 80 Mg Tab 80 Mg PO DAILY 03/05/14 Reported Magnesium Oxide (Magnesium Oxide (Mg Supplement) 400 Mg Tab 400 Mg PO Q2D 03/05/14 Reported Multivitamin (Multiple Vitamin) 1 Tab Tab 1 Tab PO DAILY 05/02/12 Reported Physical Physical Exam Vital Signs: Date Time Temp Pulse Resp B/P (MAP) Pulse Ox O2 Delivery O2 Flow Rate FiO2 10/30/17 08:00 Room Air 10/30/17 07:13 36.7 98 20 99/63 (75) 92 Room Air 10/30/17 04:00 98 Nasal Cannula 2.0 10/30/17 04:00 36.5 93 20 103/67 (79) 92 Room Air 10/30/17 00:00 36.6 89 20 95/63 (74) 98 Room Air 10/30/17 00:00 98 Nasal Cannula 2.0 10/29/17 20:00 98 Nasal Cannula 2.0 10/29/17 15:15 78 18 102/56 98 10/29/17 13:44 36.8 94 18 98/56 96 Nasal Cannula 2.0 10/29/17 13:40 86 18 112/64 96 Nasal Cannula 2.0 10/29/17 13:24 86 10/29/17 12:16 77 18 112/64 95 Nasal Cannula 2.0 10/29/17 09:41 80 10/29/17 09:40 96 Nasal Cannula 10/29/17 09:40 96 Nasal Cannula 2.0 10/29/17 09:18 61 18 92/59 95 Room Air General Appearance: WD/WN, NO APPARENT DISTRESS Head: NORMOCEPHALIC Eyes: NO DISCHARGE ENT: other (hearing loss. Currently without batteries for cochlear implants- deaf. Waiting on new batteries) Neck: TRACHEA MIDLINE, SUPPLE Respiratory: other (decreased breath sounds left side. No wheezing noted) Cardiovasular: REGULAR RATE/RHYTHM Abdomen: NORMAL BOWEL SOUNDS Back: NORMAL INSPECTION Lower Extremities: other (trace edema b/l LE) Neuro: ALERT, ORIENTED x 3 Psychiatric: NORMAL AFFECT Diagnostics Labs Results Past 24 Hours Test 10/29/17 09:40 10/29/17 10:39 10/29/17 15:54 10/29/17 20:43 Range/Units White Blood Count 0.18 4.8-10.8 K/uL Red Blood Count 4.27 4.7-6.1 M/uL Hemoglobin 12.4 14.0-18.0 g/dL Hematocrit 37.0 42-52 % Mean Corpuscular Volume 86.7 80-100 fL Mean Corpuscular Hemoglobin 29.0 25-34 pg Mean Corpuscular Hemoglobin Concent 33.5 32-36 g/dl RDW Standard Deviation 45.8 36.4-46.3 fL RDW Coefficient of Variation 14.5 11.5-14.5 % Platelet Count 103 130-400 K/uL Mean Platelet Volume 10.7 7.4-10.4 fL Sodium Level 132 136-145 mmol/L Potassium Level 4.4 3.5-5.1 mmol/L Chloride Level 94 98-107 mmol/L Carbon Dioxide Level 29 21-32 mmol/L Anion Gap 8.0 3-11 mmol/L Blood Urea Nitrogen 37 7-18 mg/dl Creatinine 1.17 0.60-1.40 mg/dl Est Creatinine Clear Calc Drug Dose 83.6 ml/min Estimated GFR () 80.3 Estimated GFR (Non- 69.3 BUN/Creatinine Ratio 31.3 10-20 Random Glucose 112 70-99 mg/dl Calcium Level 9.1 8.5-10.1 mg/dl Total Bilirubin 0.9 0.2-1 mg/dl Direct Bilirubin 0.4 0-0.2 mg/dl Aspartate Amino Transf (AST/SGOT) 32 15-37 U/L Alanine Aminotransferase (ALT/SGPT) 29 12-78 U/L Alkaline Phosphatase 57 45-117 U/L Troponin I < 0.015 < 0.015 0-0.045 ng/ml Pro-B-Type Natriuretic Peptide 973 0-900 pg/ml Total Protein 7.2 6.4-8.2 gm/dl Albumin 3.1 3.4-5.0 gm/dl Lipase 132 73-393 U/L Prothrombin Time 12.2 9.0-12.0 SECONDS Prothromb Time International Ratio 1.2 0.9-1.1 Activated Partial Thromboplast Time 34.9 21.0-31.0 SECONDS Partial Thromboplastin Ratio 1.3 Magnesium Level 1.8 1.8-2.4 mg/dl Total Creatine Kinase 42 39-308 U/L Creatine Kinase MB 1.7 0.5-3.6 ng/ml Creatine Kinase MB Ratio 4.0 0-3.0 Thyroid Stimulating Hormone (TSH) 0.899 0.300-4.500 uIu/ml Digoxin Level 0.8 0.8-2.0 ng/ml Bedside Glucose 147 70-99 mg/dl Test 10/29/17 21:06 10/30/17 05:50 10/30/17 06:13 Range/Units Total Creatine Kinase 38 39-308 U/L Creatine Kinase MB 1.4 0.5-3.6 ng/ml Creatine Kinase MB Ratio 3.7 0-3.0 Troponin I < 0.015 0-0.045 ng/ml White Blood Count 0.22 4.8-10.8 K/uL Red Blood Count 3.62 4.7-6.1 M/uL Hemoglobin 10.4 14.0-18.0 g/dL Hematocrit 31.3 42-52 % Mean Corpuscular Volume 86.5 80-100 fL Mean Corpuscular Hemoglobin 28.7 25-34 pg Mean Corpuscular Hemoglobin Concent 33.2 32-36 g/dl RDW Standard Deviation 45.4 36.4-46.3 fL RDW Coefficient of Variation 14.4 11.5-14.5 % Platelet Count 73 130-400 K/uL Mean Platelet Volume 10.8 7.4-10.4 fL Sodium Level 132 136-145 mmol/L Potassium Level 4.0 3.5-5.1 mmol/L Chloride Level 96 98-107 mmol/L Carbon Dioxide Level 30 21-32 mmol/L Anion Gap 6.0 3-11 mmol/L Blood Urea Nitrogen 28 7-18 mg/dl Creatinine 0.95 0.60-1.40 mg/dl Est Creatinine Clear Calc Drug Dose 103.6 ml/min Estimated GFR () 103.3 Estimated GFR (Non- 89.1 BUN/Creatinine Ratio 29.0 10-20 Random Glucose 83 70-99 mg/dl Calcium Level 8.9 8.5-10.1 mg/dl Magnesium Level 1.8 1.8-2.4 mg/dl Bedside Glucose 88 70-99 mg/dl Diagnostic Radiology CHEST COMBO ANGIO DISSECTION HISTORY: 57 years-old male presents with severe chest pain. COMPARISON: PET CT 10/09/2017 TECHNIQUE: CTA of the chest was obtained both with and without the use of 92 mL Optiray 320 IV contrast. 3-D coronal and sagittal MIPS were obtained from the axial data set and submitted for review. All measurements were obtained according to NASCET Criteria. A dose lowering technique was used consistent with the principals of MAHAMED. FINDINGS: CTA: Heart size is upper limits of normal. Coronary arterial calcifications are noted. There are calcifications of the mitral and aortic annulus. No intramural hematoma on the noncontrast scan. There is moderate atherosclerotic plaquing of the thoracic aorta. Imaged proximal great vessels are patent. There is no aortic dissection or aneurysm identified. There is high-grade narrowing of the inferior left pulmonary vein as seen on image 172 series 8 secondary to the bulky adenopathy as below. The opacified pulmonary arterial tree is unremarkable. CT CHEST: Mildly heterogeneous thyroid without dominant nodule. Bulky soft tissue attenuating infiltrative mass of the mediastinum suggesting conglomerate adenopathy with splaying of the ravindra is again seen measuring up to 5.6 x 10.0 x 10.1 cm extending into the bilateral hilar regions and compressing the left ventricle. This mass is predominately interposed between the descending thoracic aorta, tracheobronchial tree and left atrium extending into the right paratracheal tissues and AP window. Moderate right and [id number] left pleural effusions are again noted. There is no pneumothorax. There is bibasilar compressive atelectasis with additional patchy bibasilar consolidative and groundglass opacities, notably within the left lung base with associated bronchial wall thickening. Apparent pleural-parenchymal scarring of the inferior segment lingula redemonstrated. There is narrowing of the left mainstem bronchus secondary to aforementioned mediastinal mass. Mild layering secretions of the trachea are noted. Air-fluid level of the proximal and mid thoracic esophagus noted. Prior cholecystectomy. No acute intra-abdominal abnormality identified. Mild gastrohepatic adenopathy. Soft tissues are unremarkable. No definite suspicious lytic or blastic bony lesions. IMPRESSION: 1. No aortic dissection or aneurysm identified. 2. Bulky heterogeneous soft tissue attenuating infiltrating mass of the mediastinum suggests conglomerate adenopathy correlating with markedly FDG avid mass seen on comparison PET CT 10/09/2017. This narrows the left mainstem bronchus and inferior left pulmonary vein as above. 3. Moderate right and small to moderate left pleural effusions with compressive bibasilar atelectasis. Additional consolidative and groundglass opacities are seen notably within the left lung base suggesting associated pneumonia or aspiration pneumonitis. 4. Air-fluid level of the mid esophagus suggests reflux. Impression Assessment and Plan Small Cell Lung CA Left mainstem partial occlusion Bilateral pleural effusions Bilateral consolidation/infiltration of the lung bases- possible PNA versus pneumonitis Patient with partial occlusion from mass-effect of the left main stem. Patient continues to experience SOB and pain with deep inspiration. He likely will need stent placement of the left main stem and should have bronchoscopy to evaluate the airway and for washings. Patient states that he previously has had "problems " with general anesthesia. Will consult anesthesia to evaluate the patient for bronchoscopy in the OR under general anesthesia with stent placement. Patient is currently on Levaquin- will add IV Clindamycin for now as well for concerns of aspiration pneumonitis/pneumonia since patient is PCN allergic. Will further discuss this patient with Dr. Gonzalez and Dr. Márquez. Will make patient NPO overnight in anticipation of procedure pending anesthesia evaluation.
[2017-10-30] MEDS ORDERED: LEVOFLOXACIN CONSULT ACTIVE PRN (10:15)
[2017-10-30] MEDS: LEVOFLOXACIN / D5W 750 MG in PREMIXED IN D5W 150 ML IV SCH (10:51)
[2017-10-30] MEDS: CLINDAMYCIN IV 600 MG in DEXTROSE 5% 50ML 50 ML IV SCH ×2 (12:41→19:36)
[2017-10-30] MEDS ORDERED: NURSING VERBAL MED ORDER ONE (13:00)
[2017-10-30] MEDS: FENTANYL PATCH REMOVE & WASTE SCH (13:59)
--- NOTE | 2017-10-30 14:14 | Anesthesiology Progress Note ---
Anesthesia Progress Note Date of Service Oct 30, 2017. Progress Notes The patient is a 57 y/o male scheduled for a bronchoscopy with possible bronchial stent tomorrow. He has a large lung mass that is compressing his L mainstem bronchus. The patient has a constant chest pain related to the mass that worsens when he lies supine, breaths deeply, or moves around. PMH includes lung cancer which he takes chemo (one wk ago) and radiation, sleep apnea, diastolic CHF, afib, dyslipidemia, AAA 3.5 cm, dysphagia, type 2 DM, hypothyroidism, state III kidney disease, anemia, hx renal cancer s/p nephrectomy, thrombocytopenia, obesity, and severe leukopenia. The patient has a history of PONV. His CXR shows CHF and pleural effusions. His chest CT shows bulky mediastinal mass adenopathy. His EKG shows afib with RVR, RBB, and ST elevations. His recent echo showed EF 60%, flattened septum, volume overload , diastolic mild MR, TR, pulmonary HTN, and biatrial enlargement. Labs are significant for WBC 0.22, hgb 10.4, plt 73, Na 132, Cl 96, BUN 28, and BNP 973. On exam the patient was sitting in a chair. He has a thick wagner. He has a MP 2 airway with 3 FB TMD. Teeth are intact. Lungs are diminished bilaterally. Heart is irregular. He is negative for bruits. The patient is an ASA 4. He was consented for both MAC and general anesthesia. The patient was counseled to trim his wagner if possible. He was counseled to remain NPO after midnight except for sips of water with pills. The patient will wear one cochlear implant with a fresh battery during the procedure. I discussed the patient with both Dr. Márquez and Dr. Pandey.
--- NOTE | 2017-10-30 15:45 | Progress Note ---
Internal Med Progress Note Date of Service: Oct 30, 2017. Provider Documentation: SUBJECTIVE: sitting on the chair comfortably not able to hear cough and sob somewhat better pain while taking deep breath or coughing no nausea no fever await procedure tomorrow OBJECTIVE: Vital Signs-as noted below Exam: General-alert and awake and not in distress ENT- cannot hear Neck-no neck masses Lungs-cta b/l no wheezing or crackles Heart-s1 and s2 heard regular rate and rhythm no murmurs Abdomen-soft BS present non tender no distension Extremities-no edema no erythema Neuro-alert and awake moves extremities Lab data as noted below. ASSESSMENT & PLAN: SOB/CP Pt with hx small cell CA with mediastinal mass presents with worsening sob ct chest shows partial occlusion of left main bronchus plan for bronchoscopy with stent placement in am appreciate pulmonary inputs post obstructive pneumonia/.pneumonitis? aspiration? started on Levaquin and clindamycin await bronchoscopy LEUKOPENIA Pt received chemo last week. WBC: 0.18, was 1.28 on 10/26/17 neutropenic precautions f/u cbc in am A-Fib currently rate controlled. Dig level: 0.8 on eliquis on Cardizem and digoxin will monitor. CAD negative troponin. Lipid panel: 10/18/17 - total: 123, LDL: 33, HDL: 48, Tri continue pravastatin Acute DIASTOLIC CHF? congestion and pleural effusions on imaging studies on Lasix IV which will be stopped because of hypotension will monitor. CKD III Cr: 1.17 on presentation cr 0.95 today will f/u labs Hypotension stopping Lasix fluid bolus and monitor DM A1c6.3 on 10/18/17 holding trulicity on NovoLog sliding scale per protocol HTN -lisinopril with hold parameters HYPOTHYROIDISM TSH: 0.89 -continue levothyroxine SLEEP APENA Pt reports doesn't tolerate CPAP, has tried in past DVT PROPHYLAXIS -SCD's DISPOSITION monitor in tele-DNR, DNI as per h and p to be determined Vital Signs: Date Time Temp Pulse Resp B/P (MAP) Pulse Ox O2 Delivery O2 Flow Rate FiO2 10/30/17 12:00 Room Air 10/30/17 11:34 36.8 97 16 92/54 (67) 95 Room Air 10/30/17 08:00 Room Air 10/30/17 07:13 36.7 98 20 99/63 (75) 92 Room Air 10/30/17 04:00 98 Nasal Cannula 2.0 10/30/17 04:00 36.5 93 20 103/67 (79) 92 Room Air 10/30/17 00:00 36.6 89 20 95/63 (74) 98 Room Air 10/30/17 00:00 98 Nasal Cannula 2.0 10/29/17 20:00 98 Nasal Cannula 2.0 Lab Results: Results Past 24 Hours Test 10/29/17 15:54 10/29/17 20:43 10/29/17 21:06 10/30/17 05:50 Range/Units Magnesium Level 1.8 1.8 1.8-2.4 mg/dl Total Creatine Kinase 42 38 39-308 U/L Creatine Kinase MB 1.7 1.4 0.5-3.6 ng/ml Creatine Kinase MB Ratio 4.0 3.7 0-3.0 Troponin I < 0.015 < 0.015 0-0.045 ng/ml Thyroid Stimulating Hormone (TSH) 0.899 0.300-4.500 uIu/ml Digoxin Level 0.8 0.8-2.0 ng/ml Bedside Glucose 147 70-99 mg/dl White Blood Count 0.22 4.8-10.8 K/uL Red Blood Count 3.62 4.7-6.1 M/uL Hemoglobin 10.4 14.0-18.0 g/dL Hematocrit 31.3 42-52 % Mean Corpuscular Volume 86.5 80-100 fL Mean Corpuscular Hemoglobin 28.7 25-34 pg Mean Corpuscular Hemoglobin Concent 33.2 32-36 g/dl RDW Standard Deviation 45.4 36.4-46.3 fL RDW Coefficient of Variation 14.4 11.5-14.5 % Platelet Count 73 130-400 K/uL Mean Platelet Volume 10.8 7.4-10.4 fL Sodium Level 132 136-145 mmol/L Potassium Level 4.0 3.5-5.1 mmol/L Chloride Level 96 98-107 mmol/L Carbon Dioxide Level 30 21-32 mmol/L Anion Gap 6.0 3-11 mmol/L Blood Urea Nitrogen 28 7-18 mg/dl Creatinine 0.95 0.60-1.40 mg/dl Est Creatinine Clear Calc Drug Dose 103.6 ml/min Estimated GFR () 103.3 Estimated GFR (Non- 89.1 BUN/Creatinine Ratio 29.0 10-20 Random Glucose 83 70-99 mg/dl Calcium Level 8.9 8.5-10.1 mg/dl Test 10/30/17 06:13 10/30/17 11:08 Range/Units Bedside Glucose 88 135 70-99 mg/dl
[2017-10-30] MEDS ORDERED: SODIUM CHLORIDE 0.9% 500ML 500 ML IV STA (15:54)
[2017-10-30] MEDS: DIGOXIN 0.125 MG TAB PO SCH (16:00)
[2017-10-30] MEDS: FENTANYL 25 MCG/HR TDSY TD SCH (16:07)
[2017-10-30] MEDS: SODIUM CHLORIDE 0.9% 1000ML 1,000 ML IV SCH (18:17)
[2017-10-30] MEDS: MoRPHine SULFATE 4 MG/ML 1 ML CARP\\VIAL IV PRN ×2 (19:33→23:26)
[2017-10-30] MEDS: PRAVASTATIN SOD 40 MG TAB PO SCH (19:36)
[2017-10-31] VITALS (8 sets, daily range): BP systolic 78–103; BP diastolic 57–67; PULSE 63–94; TEMP 36.4–36.8; O2SAT 93–100
[2017-10-31] MEDS: CLINDAMYCIN IV 600 MG in DEXTROSE 5% 50ML 50 ML IV SCH ×3 (04:25→20:25)
[2017-10-31] MEDS: INSULIN ASPART 100 UNITS/ML 3 ML PEN SC SCH ×4 (07:00→21:00)
[2017-10-31 07:11] LABS: CALCIUM 8.2 mg/dl (8.5-10.1); CREATININE 1.47 mg/dl (0.60-1.40); MAGNESIUM 1.8 mg/dl (1.8-2.4); POTASSIUM 4.3 mmol/L (3.5-5.1)
[2017-10-31 07:35] LABS: HEMATOCRIT 28.1 % (42-52); MEAN CELL VOLUME 86.7 fL (80-100); MEAN CORPUSCULAR HEMOGLOBIN 28.4 pg (25-34); MEAN CORPUSCULAR HGB CONC 32.7 g/dl (32-36); MEAN PLATELET VOLUME 10.3 fL (7.4-10.4); PLATELET COUNT 49 K/uL (130-400); RED BLOOD COUNT 3.24 M/uL (4.7-6.1); WHITE BLOOD COUNT 0.37 K/uL (4.8-10.8)
[2017-10-31 07:37] LABS: PLT ESTIMATE DECREASED
[2017-10-31] MEDS: FENOFIBRATE 145 MG TAB PO SCH (07:37)
[2017-10-31] MEDS: MULTIVITAMIN TAB PO SCH (07:37)
[2017-10-31] MEDS: CHOLECALCIFEROL 1000 INTER.UNIT TAB PO SCH (07:38)
[2017-10-31] MEDS: MAGNESIUM OXIDE 400 MG TAB PO SCH (07:38)
[2017-10-31] MEDS: CHECK FENTANYL PATCH PLACEMENT SCH ×3 (07:38→23:42)
[2017-10-31] MEDS: DILTIAZEM HCL (TIAzac) 180 MG CAPCR PO SCH (09:00)
[2017-10-31] MEDS: APIXABAN 2.5 MG TAB PO SCH ×2 (09:00→20:38)
[2017-10-31] MEDS: LISINOPRIL 5 MG TAB PO SCH (09:00)
--- NOTE | 2017-10-31 09:33 | Pulmonology Progress Note ---
Pulmonary Progress Note Date of Service Oct 31, 2017. Attending Dr. Márquez Subjective Patient stable today with no overnight issues Objective Able to complete full sentences and walk 100yds at this time. 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 I explained to him that if his clinic condition changes the care team will need a DPOA to help guide his care, especially if terminal extubation is required. He has no DPOA at this time. DO to this I will not move forward with a bronchoscopic intervention as this places him at risk for prolonged mechanical ventilation with no DPOA/clinic decision maker to help guide our team. I have left him the consent form to sign and let him know if he can find a DPOA to help guide treatment or termination of treatment we can move forward with a bronchoscopic procedure. this patient is no longer a viable candidate for active intervention the pulmonary team will sign-off. Data Medications: Current Inpatient Medications Medications (Trade) Dose Ordered Sig/Elizabeth Route Start Time Stop Time Status Last Admin Dose Admin Ioversol (Optiray 320) 100 ml UD PRN IV 10/29/17 09:45 11/02/17 09:44 Morphine Sulfate (MoRPHine SULFATE INJ) 4 mg Q2HWA PRN IV 10/29/17 16:00 11/12/17 15:59 10/30/17 23:26 4 MG Acetaminophen (Tylenol Tab) 650 mg Q4H PRN PO 10/29/17 15:00 11/28/17 14:59 Ondansetron HCl (Zofran Inj) 4 mg Q6H PRN IV 10/29/17 15:00 11/28/17 14:59 Polyethylene (Miralax Powder Packet) 17 gm DAILY PRN PO 10/29/17 15:00 11/28/17 14:59 Insulin Aspart (novoLOG ASPART) SLIDING SCALE If C... ACHS SC 12/4/17 16:15 11/28/17 16:14 10/30/17 18:18 3 UNITS Glucose (Glucose 40% Gel) 15-30 GRAMS 15 GRAMS... UD PRN PO 10/29/17 15:00 11/28/17 14:59 Glucose (Glucose Chew Tab) 4-8 Tablets 4 Tabl... UD PRN PO 10/29/17 15:00 11/28/17 14:59 Dextrose (Dextrose 50% 50ML Syringe) 25-50ML OF 50% DW IV FOR... UD PRN IV 10/29/17 15:00 11/28/17 14:59 Glucagon (Glucagon Inj) 1 mg UD PRN SQ 10/29/17 15:00 11/28/17 14:59 Diltiazem HCl (TIAzac CAP) 180 mg DAILY PO 10/30/17 09:00 11/29/17 08:59 10/30/17 07:39 180 MG Eszopiclone (Lunesta Tab) 1 mg HS PRN PO 10/29/17 15:15 11/28/17 15:14 Fenofibrate (Tricor Tab) 145 mg DAILY PO 10/30/17 09:00 11/29/17 08:59 10/31/17 07:37 145 MG Lisinopril (Zestril Tab) 5 mg DAILY PO 10/30/17 09:00 11/29/17 08:59 10/30/17 07:39 5 MG Multivitamins (Multivitamin Tab) 1 tab DAILY PO 10/30/17 09:00 11/29/17 08:59 10/31/17 07:37 1 TAB Nitroglycerin (Nitrostat Tab) 0.4 mg UD PRN SL 10/29/17 15:15 11/28/17 15:14 Cholecalciferol (Vitamin D Tab) 2,000 inter.unit DAILY PO 10/30/17 09:00 11/29/17 08:59 10/31/17 07:38 2,000 INTER.UNIT Apixaban (Eliquis Tab) 5 mg BID PO 10/29/17 21:00 11/28/17 20:59 10/30/17 19:36 5 MG Pravastatin Sodium (Pravachol Tab) 80 mg HS PO 10/29/17 21:00 11/28/17 20:59 10/30/17 19:36 80 MG Levothyroxine Sodium (Synthroid Tab) 112 mcg Q2D@0900 PO 10/30/17 09:00 11/29/17 08:59 10/30/17 07:39 112 MCG Magnesium Oxide (Mag-Ox Tab) 400 mg QAM PO 10/30/17 09:00 11/29/17 08:59 10/31/17 07:38 400 MG Miscellaneous Information (Check Fentanyl Patch Placement) 1 ea QS N/A 10/30/17 00:00 11/29/17 00:00 10/31/17 07:38 1 EA Digoxin (Lanoxin Tab) 0.125 mg DAILY@16 PO 10/30/17 16:00 11/29/17 15:59 Levofloxacin 750 mg/Prmx 150 ml @ 100 mls/hr Q24H IV 10/30/17 10:00 11/06/17 09:59 10/30/17 10:51 100 MLS/HR Clindamycin Phosphate 600 mg/ Dextrose 54 ml @ 100 mls/hr Q8H IV 10/30/17 12:00 11/06/17 11:59 10/31/17 04:25 100 MLS/HR Levofloxacin (Consult) 1 ea UD PRN N/A 10/30/17 10:15 11/29/17 10:14 Fentanyl (Duragesic Patch) 25 mcg Q72H TD 10/30/17 14:00 11/13/17 13:59 10/30/17 16:07 25 MCG Miscellaneous (Fentanyl Patch Remove & Waste) 1 ea Q72H N/A 10/30/17 13:59 11/29/17 13:58 10/30/17 13:59 1 EA Sodium Chloride 1,000 ml @ 50 mls/hr Q20H IV 10/30/17 17:52 11/29/17 17:51 10/30/17 18:17 50 MLS/HR Vital Signs: Date Time Temp Pulse Resp B/P (MAP) Pulse Ox O2 Delivery O2 Flow Rate FiO2 10/31/17 08:00 Room Air 10/31/17 07:39 36.6 63 20 94/60 (71) 98 Nasal Cannula 2.0 10/31/17 04:30 94 Nasal Cannula 2.0 10/31/17 03:39 36.8 71 21 92/57 (69) 94 Nasal Cannula 2.0 10/31/17 00:00 93 Room Air 10/30/17 23:30 36.6 65 16 88/56 (67) 93 Room Air 10/30/17 20:00 Room Air 10/30/17 19:29 36.6 61 15 92/60 (71) 92 Room Air 10/30/17 16:00 Nasal Cannula 2.0 10/30/17 16:00 57 10/30/17 15:36 36.5 71 20 78/62 (67) 92 Room Air 77/43 (54) 10/30/17 12:00 Room Air 10/30/17 11:34 36.8 97 16 92/54 (67) 95 Room Air Laboratory Results: Last 24 Hours Test 10/30/17 11:08 10/30/17 16:24 10/30/17 20:22 10/31/17 05:47 Bedside Glucose 135 mg/dl 110 mg/dl 116 mg/dl White Blood Count 0.37 K/uL Red Blood Count 3.24 M/uL Hemoglobin 9.2 g/dL Hematocrit 28.1 % Mean Corpuscular Volume 86.7 fL Mean Corpuscular Hemoglobin 28.4 pg Mean Corpuscular Hemoglobin Concent 32.7 g/dl RDW Standard Deviation 45.8 fL RDW Coefficient of Variation 14.4 % Platelet Count 49 K/uL Mean Platelet Volume 10.3 fL Platelet Estimate DECREASED Sodium Level 129 mmol/L Potassium Level 4.3 mmol/L Chloride Level 94 mmol/L Carbon Dioxide Level 30 mmol/L Anion Gap 5.0 mmol/L Blood Urea Nitrogen 41 mg/dl Creatinine 1.47 mg/dl Est Creatinine Clear Calc Drug Dose 67.8 ml/min Estimated GFR () 60.9 Estimated GFR (Non- 52.6 BUN/Creatinine Ratio 28.0 Random Glucose 80 mg/dl Calcium Level 8.2 mg/dl Magnesium Level 1.8 mg/dl Test 10/31/17 06:00 Bedside Glucose 84 mg/dl
[2017-10-31] MEDS: LEVOFLOXACIN / D5W 750 MG in PREMIXED IN D5W 150 ML IV SCH (10:28)
[2017-10-31] MEDS ORDERED: SODIUM CHLORIDE 0.9% 1000ML 250 ML IV SCH (12:05)
[2017-10-31] MEDS ORDERED: CALCIUM CARBONATE 500 MG CHEWABLE PO ONE (14:15)
[2017-10-31] MEDS ORDERED: PANTOprazole SOD 40 MG TAB PO ONE (14:15)
[2017-10-31] MEDS ORDERED: NURSING VERBAL MED ORDER ONE (14:45)
[2017-10-31] MEDS: DIGOXIN 0.125 MG TAB PO SCH (16:03)
[2017-10-31] MEDS: SODIUM CHLORIDE 0.9% 1000ML 1,000 ML IV SCH (16:04)
--- NOTE | 2017-10-31 17:32 | Progress Note ---
Internal Med Progress Note Date of Service: Oct 31, 2017. Provider Documentation: SUBJECTIVE: standing in room comfortably cough and sob better has some chest pain which has been here for sometime afebrile no dizziness OBJECTIVE: Vital Signs-as noted below Exam: General-alert and awake and not in distress ENT- Normal hearing Neck-no neck masses Lungs-cta b/l no wheezing or crackles Heart-s1 and s2 heard regular rate and rhythm no murmurs Abdomen-soft BS present non tender no distension Extremities- pedal edema present no erythema Neuro-alert and awake moves extremities Lab data as noted below. ASSESSMENT & PLAN: SOB/CP Pt with hx small cell CA with mediastinal mass presents with worsening sob ct chest shows partial occlusion of left main bronchus plan for bronchoscopy with stent placement possibly tomorrow appreciate pulmonary inputs post obstructive pneumonia/.pneumonitis? aspiration? started on Levaquin and clindamycin await bronchoscopy continue abx Pancytopenia with neutropenia Pt received chemo last week. WBC: 0.18, was 1.28 on 10/26/17 neutropenic precautions f/u cbc in am A-Fib currently rate controlled. Dig level: 0.8 on eliquis on Cardizem and digoxin will monitor. CAD negative troponin. Lipid panel: 10/18/17 - total: 123, LDL: 33, HDL: 48, Tri continue pravastatin Acute DIASTOLIC CHF? congestion and pleural effusions on imaging studies on Lasix IV which will be stopped because of hypotension will monitor. CKD III Cr: 1.17 on presentation cr 0.95 today will f/u labs Hypotension stopping Lasix bp Meds on hold fluid bolus and monitor f/u echo asymptomatic ARF from hypotension holding BP meds on fluids f/u labs. DM A1c6.3 on 10/18/17 holding trulicity on NovoLog sliding scale per protocol HTN currently hypotensive HYPOTHYROIDISM TSH: 0.89 -continue levothyroxine SLEEP APENA Pt reports doesn't tolerate CPAP, has tried in past DVT PROPHYLAXIS -SCD's DISPOSITION monitor in tele-DNR, DNI as per h and p to be determined Vital Signs: Date Time Temp Pulse Resp B/P (MAP) Pulse Ox O2 Delivery O2 Flow Rate FiO2 11/02/17 16:49 72 11/02/17 15:34 36.6 68 18 89/54 (66) 95 Room Air 11/02/17 11:34 36.7 80 20 107/67 (80) 96 11/02/17 08:00 Room Air 11/02/17 07:42 36.4 81 19 108/70 (83) 95 Room Air 11/02/17 04:17 36.5 69 17 126/76 (93) 97 Nasal Cannula 2.0 11/02/17 04:00 Room Air 11/02/17 00:01 Room Air 11/01/17 22:55 36.5 93 18 114/74 (87) 95 Room Air 11/01/17 20:37 36.9 80 18 112/73 (86) 99 Nasal Cannula 2.0 11/01/17 20:00 Room Air Lab Results: Results Past 24 Hours Test 11/01/17 20:40 11/02/17 06:36 11/02/17 08:19 Range/Units Bedside Glucose 90 84 70-99 mg/dl White Blood Count 0.15 4.8-10.8 K/uL Red Blood Count 3.53 4.7-6.1 M/uL Hemoglobin 10.0 14.0-18.0 g/dL Hematocrit 30.4 42-52 % Mean Corpuscular Volume 86.1 80-100 fL Mean Corpuscular Hemoglobin 28.3 25-34 pg Mean Corpuscular Hemoglobin Concent 32.9 32-36 g/dl RDW Standard Deviation 44.8 36.4-46.3 fL RDW Coefficient of Variation 14.2 11.5-14.5 % Platelet Count 40 130-400 K/uL Mean Platelet Volume 10.4 7.4-10.4 fL Sodium Level 132 136-145 mmol/L Potassium Level 3.9 3.5-5.1 mmol/L Chloride Level 98 98-107 mmol/L Carbon Dioxide Level 27 21-32 mmol/L Anion Gap 7.0 3-11 mmol/L Blood Urea Nitrogen 13 7-18 mg/dl Creatinine 0.91 0.60-1.40 mg/dl Est Creatinine Clear Calc Drug Dose 110.2 ml/min Estimated GFR () 108.8 Estimated GFR (Non- 93.9 BUN/Creatinine Ratio 14.1 10-20 Random Glucose 102 70-99 mg/dl Calcium Level 8.9 8.5-10.1 mg/dl Magnesium Level 1.8 1.8-2.4 mg/dl
[2017-10-31] MEDS: MoRPHine SULFATE 4 MG/ML 1 ML CARP\\VIAL IV PRN ×2 (19:50→23:42)
[2017-10-31] MEDS: PRAVASTATIN SOD 40 MG TAB PO SCH (19:50)
[2017-11-01] VITALS (8 sets, daily range): BP systolic 103–135; BP diastolic 60–75; PULSE 71–93; TEMP 36.5–36.9; O2SAT 93–100
[2017-11-01] MEDS: MoRPHine SULFATE 4 MG/ML 1 ML CARP\\VIAL IV PRN ×3 (00:17→23:03)
[2017-11-01] MEDS: CLINDAMYCIN IV 600 MG in DEXTROSE 5% 50ML 50 ML IV SCH ×3 (04:10→19:44)
[2017-11-01] MEDS: SODIUM CHLORIDE 0.9% 1000ML 1,000 ML IV SCH (04:10)
[2017-11-01] MEDS: APIXABAN 2.5 MG TAB PO SCH ×2 (06:54→19:43)
[2017-11-01] MEDS: INSULIN ASPART 100 UNITS/ML 3 ML PEN SC SCH ×4 (07:00→21:00)
[2017-11-01 07:03] LABS: CALCIUM 8.3 mg/dl (8.5-10.1); CREATININE 0.99 mg/dl (0.60-1.40); MAGNESIUM 1.9 mg/dl (1.8-2.4); POTASSIUM 4.1 mmol/L (3.5-5.1)
[2017-11-01 07:09] LABS: HEMATOCRIT 27.9 % (42-52); MEAN CELL VOLUME 86.6 fL (80-100); MEAN CORPUSCULAR HGB CONC 32.3 g/dl (32-36); PLATELET COUNT 34 K/uL (130-400); RED BLOOD COUNT 3.22 M/uL (4.7-6.1); WHITE BLOOD COUNT 0.25 K/uL (4.8-10.8)
[2017-11-01] MEDS: MAGNESIUM OXIDE 400 MG TAB PO SCH (07:24)
[2017-11-01] MEDS: CHOLECALCIFEROL 1000 INTER.UNIT TAB PO SCH (07:24)
[2017-11-01] MEDS: FENOFIBRATE 145 MG TAB PO SCH (07:24)
[2017-11-01] MEDS: DILTIAZEM HCL (TIAzac) 180 MG CAPCR PO SCH (07:25)
[2017-11-01] MEDS: MULTIVITAMIN TAB PO SCH (07:25)
[2017-11-01] MEDS: LEVOTHYROXINE 112 MCG TAB PO SCH (07:25)
[2017-11-01] MEDS: LISINOPRIL 5 MG TAB PO SCH (07:25)
[2017-11-01] MEDS: CHECK FENTANYL PATCH PLACEMENT SCH ×3 (07:25→23:03)
[2017-11-01] MEDS ORDERED: FENTANYL PATCH REMOVE & WASTE SCH (08:59)
[2017-11-01] MEDS ORDERED: FENTANYL 25 MCG/HR TDSY TD SCH (09:00)
[2017-11-01] MEDS ORDERED: PANTOprazole SOD 40 MG TAB PO SCH (09:00)
[2017-11-01] MEDS: LEVOFLOXACIN / D5W 750 MG in PREMIXED IN D5W 150 ML IV SCH (10:26)
[2017-11-01] MEDS ORDERED: OPTIRAY 320 IV PRN (12:30)
--- NOTE | 2017-11-01 13:08 | DIAGNOSTIC IMAGING REPORT ---
CT SOFT TISSUE NECK WITH CT DOSE: 645.15 mGy.cm CLINICAL HISTORY: dysphagia. lung cancer TECHNIQUE: Helical images were acquired during intravenous administration of 70 cc of Optiray 320. A dose lowering technique was utilized adhering to the principles of ALARA. COMPARISON STUDY: None. FINDINGS: The visualized portions of the lung apices reveal bulky mediastinal lymphadenopathy. No thyroid masses are visualized. No salivary gland masses are visualized. There is no pathologic cervical lymphadenopathy. There are no fluid collections suspicious for abscess. There is no evidence of airway compromise. No mucosal space masses are visualized. There is a right mastoid effusion. There are postsurgical changes involving the mastoids. Bilateral cochlear implants are visualized. IMPRESSION: 1. Bulky mediastinal lymphadenopathy 2. No pathologic neck masses. No evidence of pathologic cervical lymphadenopathy. Electronically signed by: Addison Adler M.D. 11/01/2017 1:07 PM Dictated Date/Time: 11/01/2017 1:02 PM
[2017-11-01] MEDS: DIGOXIN 0.125 MG TAB PO SCH (16:25)
--- NOTE | 2017-11-01 16:40 | ECHOCARDIOGRAM REPORT ---
*NOTICE TO RECEIVING [employer] This information is strictly Confidential and protected under [place] law. [place] law prohibits you from making any further disclosure of this information unless further disclosure is expressly permitted by the written consent of the person to whom it pertains or is authorized by law. A general authorization for the release of medical or other information is not sufficient for this purpose. Hospital accepts no responsibility if the information is made available to any other person, INCLUDING THE PATIENT. Interpretation Summary * Name: TYREE LARSON Study Date: 11/01/2017 06:19 AM * Patient Location: .2T\S\S231\S\1 HR: 57 * : 1960 (M/d/yyyy) Gender: Male Height: 70 in * Age: 57 yrs Ethnicity: CA Weight: 229 lb * Ordering Physician: Pancho Pacheco * Referring Physician: No Doctor, Assigned * Performed By: Lucrecia Payan RCS * * Reason For Study: HYPOTENSION * BSA: 2.2 m2 * The study was technically adequate. * Compared to prior study, changes are noted. * -- Conclusions -- * Ejection Fraction = 60-65%. * There is mild concentric left ventricular hypertrophy. * The right ventricle is mildly dilated. * The right ventricular systolic function is normal as assessed by tricuspid annular plane systolic excursion (TAPSE) (normal >1.5 cm). * Aortic valve sclerosis moderate, without significant aortic valvular stenosis. * There is moderate tricuspid regurgitation. * The estimated systolic PAP is 50mmHg. * Dilated inferior vena cava with reduced collapsability with sniff indicates an elevated right atrial pressure of 15 mmHg * There is mild mitral regurgitation. * Flattened septum is consistent with RV pressure overload. Procedure Details * A complete two-dimensional transthoracic echocardiogram was performed (2D, M-mode, Doppler and color flow Doppler). Left Ventricle * The left ventricle is normal in size. * There is mild concentric left ventricular hypertrophy. * Left ventricular systolic function is normal. * Ejection Fraction = 60-65%. * Flattened septum is consistent with RV pressure overload. Right Ventricle * The right ventricle is mildly dilated. * The right ventricular systolic function is normal as assessed by tricuspid annular plane systolic excursion (TAPSE) (normal >1.5 cm). Atria * The left atrium is mildly dilated. * The right atrium is mildly dilated. * There is no evidence of atrial septal defect, but resolution does not allow assessment for a patent foramen ovale. Mitral Valve * There is mild mitral annular calcification. * The mitral valve leaflets appear thickened, but open well. * There is no mitral valve stenosis. * There is mild mitral regurgitation. Tricuspid Valve * The tricuspid valve is normal. * There is no tricuspid stenosis. * There is moderate tricuspid regurgitation. * The estimated systolic PAP is 50mmHg. Aortic Valve * The aortic valve is not well visualized. * Aortic valve sclerosis moderate, without significant aortic valvular stenosis. * Aortic stenosis is absent. * There is no significant aortic regurgitation. Pulmonic Valve * The pulmonary valve is not well seen, but the Doppler examination is normal without significant regurgitation or stenosis. Great Vessels * The aortic root and proximal ascending aorta are normal sized. Pericardium/Pleural * There is no pericardial effusion. Great Vessels * Dilated inferior vena cava with reduced collapsability with sniff indicates an elevated right atrial pressure of 15 mmHg Left Ventricular Diastolic Function * Pulse wave TDI of the anterior and posterior mitral annulas demonstrates abnormal LV relaxation MMode 2D Measurements and Calculations IVSd 1.5 cm IVSs 1.7 cm LVIDd 4.9 cm LVIDs 2.8 cm LVPWd 1.3 cm LVPWs 1.7 cm IVS/LVPW 1.2 FS 42.8 % EDV(Teich) 112.5 ml ESV(Teich) 29.6 ml EF(Teich) 73.7 % EDV(cubed) 117.3 ml ESV(cubed) 22.0 ml EF(cubed) 81.3 % % IVS thick 10.1 % % LVPW thick 30.5 % LV mass(C)d 286.4 grams LV mass(C)dI 129.5 grams/m\S\2 LV mass(C)s 179.1 grams LV mass(C)sI 81.0 grams/m\S\2 SV(Teich) 83.0 ml SI(Teich) 37.5 ml/m\S\2 SV(cubed) 95.3 ml SI(cubed) 43.1 ml/m\S\2 ACS 1.1 cm LVOT diam 2.0 cm LVOT area 3.1 cm\S\2 LVAd ap4 34.1 cm\S\2 LVLd ap4 7.9 cm EDV(MOD-sp4) 122.3 ml EDV(sp4-el) 125.4 ml LVAs ap4 16.7 cm\S\2 LVLs ap4 6.2 cm ESV(MOD-sp4) 36.8 ml ESV(sp4-el) 38.2 ml EF(MOD-sp4) 69.9 % EF(sp4-el) 69.5 % LVAd ap2 31.3 cm\S\2 LVLd ap2 7.2 cm EDV(MOD-sp2) 114.0 ml EDV(sp2-el) 115.1 ml LVAs ap2 16.4 cm\S\2 LVLs ap2 6.2 cm ESV(MOD-sp2) 35.7 ml ESV(sp2-el) 36.5 ml EF(MOD-sp2) 68.7 % EF(sp2-el) 68.3 % LVLd %diff -9.18 % EDV(MOD-bp) 123.5 ml LVLs %diff 0.46 % ESV(MOD-bp) 36.3 ml EF(MOD-bp) 70.6 % SV(MOD-sp4) 85.5 ml SI(MOD-sp4) 38.7 ml/m\S\2 SV(MOD-sp2) 78.2 ml SI(MOD-sp2) 35.4 ml/m\S\2 SV(MOD-bp) 87.2 ml SI(MOD-bp) 39.4 ml/m\S\2 SV(sp4-el) 87.2 ml SI(sp4-el) 39.4 ml/m\S\2 SV(sp2-el) 78.7 ml SI(sp2-el) 35.6 ml/m\S\2 Doppler Measurements and Calculations MV E max rosaura 131.0 cm/sec MV P1/2t max rosaura 141.5 cm/sec MV P1/2t 95.5 msec MVA(P1/2t) 2.3 cm\S\2 MV dec slope 434.0 cm/sec\S\2 MV dec time 0.31 sec Ao V2 max 146.0 cm/sec Ao max PG 8.5 mmHg Ao max PG (full) 6.4 mmHg GAY(V,A) 1.6 cm\S\2 GAY(V,D) 1.6 cm\S\2 LV V1 max PG 2.2 mmHg LV V1 max 73.3 cm/sec MR max rosaura 427.1 cm/sec MR max PG 73.0 mmHg TR max rosaura 270.7 cm/sec
--- NOTE | 2017-11-01 17:19 | Progress Note ---
Internal Med Progress Note Date of Service: Nov 01, 2017. Provider Documentation: SUBJECTIVE: comfortable says had some difficulty swallowing afebrile has cough some sob denies any other complaints OBJECTIVE: Vital Signs-as noted below Exam: General-alert and awake and not in distress ENT- normal hearing Neck-no neck masses Lungs-cta b/l no wheezing bibasilar crackles present Heart-s1 and s2 heard regular rate and rhythm no murmurs Abdomen-soft BS present non tender no distension Extremities- pedal edema present no erythema Neuro-alert and awake moves extremities Lab data as noted below. ASSESSMENT & PLAN: SOB/CP Pt with hx small cell CA with mediastinal mass presents with worsening sob ct chest shows partial occlusion of left main bronchus plan for bronchoscopy with stent placement but currently pulmonary signed off consulted CT surgery for recommendations post obstructive pneumonia/.pneumonitis? aspiration? started on Levaquin and clindamycin to continue abx Pancytopenia with neutropenia Pt received chemo last week. WBC: 0.18, was 1.28 on 10/26/17 neutropenic precautions f/u cbc in am A-Fib currently rate controlled. Dig level: 0.8 on eliquis on Cardizem and digoxin will monitor. Dysphagia has some dificult swallowing today ct soft neck was unremarkable CAD negative troponin. Lipid panel: 10/18/17 - total: 123, LDL: 33, HDL: 48, Tri continue pravastatin stable Acute DIASTOLIC CHF? congestion and pleural effusions on imaging studies on Lasix IV which will be stopped because of hypotension will monitor. CKD III Cr: 1.17 on presentation cr 0.95 today will f/u labs Hypotension stopping Lasix bp Meds on hold fluid bolus and monitor echo- normal ef asymptomatic resolved today and stopped fluids ARF from hypotension holding BP meds on fluids f/u labs.resolved DM A1c6.3 on 10/18/17 holding trulicity on NovoLog sliding scale per protocol HTN currently hypotensive to restart BOP meds when BP elevates HYPOTHYROIDISM TSH: 0.89 -continue levothyroxine SLEEP APENA Pt reports doesn't tolerate CPAP, has tried in past DVT PROPHYLAXIS -SCD's DISPOSITION monitor in tele-DNR, DNI as per h and p to be determined Vital Signs: Date Time Temp Pulse Resp B/P (MAP) Pulse Ox O2 Delivery O2 Flow Rate FiO2 11/02/17 16:49 72 11/02/17 15:34 36.6 68 18 89/54 (66) 95 Room Air 11/02/17 11:34 36.7 80 20 107/67 (80) 96 11/02/17 08:00 Room Air 11/02/17 07:42 36.4 81 19 108/70 (83) 95 Room Air 11/02/17 04:17 36.5 69 17 126/76 (93) 97 Nasal Cannula 2.0 11/02/17 04:00 Room Air 11/02/17 00:01 Room Air 11/01/17 22:55 36.5 93 18 114/74 (87) 95 Room Air 11/01/17 20:37 36.9 80 18 112/73 (86) 99 Nasal Cannula 2.0 11/01/17 20:00 Room Air Lab Results: Results Past 24 Hours Test 11/01/17 20:40 11/02/17 06:36 11/02/17 08:19 Range/Units Bedside Glucose 90 84 70-99 mg/dl White Blood Count 0.15 4.8-10.8 K/uL Red Blood Count 3.53 4.7-6.1 M/uL Hemoglobin 10.0 14.0-18.0 g/dL Hematocrit 30.4 42-52 % Mean Corpuscular Volume 86.1 80-100 fL Mean Corpuscular Hemoglobin 28.3 25-34 pg Mean Corpuscular Hemoglobin Concent 32.9 32-36 g/dl RDW Standard Deviation 44.8 36.4-46.3 fL RDW Coefficient of Variation 14.2 11.5-14.5 % Platelet Count 40 130-400 K/uL Mean Platelet Volume 10.4 7.4-10.4 fL Sodium Level 132 136-145 mmol/L Potassium Level 3.9 3.5-5.1 mmol/L Chloride Level 98 98-107 mmol/L Carbon Dioxide Level 27 21-32 mmol/L Anion Gap 7.0 3-11 mmol/L Blood Urea Nitrogen 13 7-18 mg/dl Creatinine 0.91 0.60-1.40 mg/dl Est Creatinine Clear Calc Drug Dose 110.2 ml/min Estimated GFR () 108.8 Estimated GFR (Non- 93.9 BUN/Creatinine Ratio 14.1 10-20 Random Glucose 102 70-99 mg/dl Calcium Level 8.9 8.5-10.1 mg/dl Magnesium Level 1.8 1.8-2.4 mg/dl
[2017-11-01] MEDS: PRAVASTATIN SOD 40 MG TAB PO SCH (19:43)
--- NOTE | 2017-11-01 21:18 | SURGICAL CONSULTATION ---
DATE OF CONSULTATION: 11/01/2017 REASON FOR CONSULTATION: Evaluate for possible bronchial stent. HISTORY OF PRESENT ILLNESS: This is a 57-year-old obese male who has small cell lung carcinoma, has received chemotherapy and radiation. He has marked lymphadenopathy in his mediastinum which is causing compression of his airways, but also more importantly, I think at this point compression of his esophagus. He continually coughs up undigested food and I think that he may have some aspiration. There is concern about his left mainstem bronchus and I was asked to evaluate him about this today. PAST MEDICAL HISTORY: 1. Small cell lung carcinoma. 2. Acute lung injury. 3. Atrial fibrillation. 4. History of diabetes mellitus. 5. Hypertension. 6. Hyperlipidemia. 7. Hypothyroidism. 8. Obstructive sleep apnea. 9. History of renal cell carcinoma. PAST SURGICAL HISTORY: Status post nephrectomy. MEDICATIONS: Please see chart. ALLERGIES: PENICILLIN. SOCIAL HISTORY: The patient lives alone. He has smoked but quit in the past. He has a single daughter who helps him. 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 He lives alone and is disabled. FAMILY MEDICAL HISTORY: The patient's mother in her 50s from complications from diabetes mellitus. Father is still alive and is in his mid 80s in the shelter. A sister, who had apparent uterine carcinoma. Both his mother and father suffered from cerebral vascular disease. He has a daughter and 2 grandchildren, all appear to be healthy. REVIEW OF SYSTEMS: The patient has had increasing chest pain. He is unable to lay down for radiation therapy which has been recommended for the compression of his esophagus. His chest pain worsened and he was admitted for this. He has a history of dysphagia recently which has worsened. He has trouble lying down flat and he has not been sleeping in a bed. He is short of breath and does have dyspnea on exertion. He has had chemotherapy about 10 days ago. He is followed by Dr. Nathan Baron. He is able to drink liquids and I watched him drink today during this interview and he did well with that, but he states that he is constantly coughing up food. By history, he has had quite a bit of problems with swallowing. The patient denies any wound breakdown. He has had chronic edema of his lower extremities, discoloration, left greater than right. He denies any diarrhea, but does have vomiting. He has had no fevers or chills. He states he has lost weight. He wears glasses. Denies any visual or auditory symptoms. He does have chest pain as described in history of present illness and he is short of breath and is on oxygen. He also has a history of sleep apnea. PHYSICAL EXAMINATION: GENERAL: This is a disheveled appearing male who wears glasses. He stands 5 feet 10 inches tall and weighs 232 pounds. He is conversant. HEENT: His sclerae are pale but anicteric. He has no nasolabial flattening. He has a wagner. NECK: Supple. I detect no real supraclavicular or cervical lymphadenopathy and has no carotid bruits. He has no neck vein distention or tracheal deviation. LUNGS: His lungs actually do not sound bad except he does have some decreased breath sounds in both bases. He has no wheezing and no rales. HEART: He has an irregularly irregular heart rate, but no significant rub. ABDOMEN: Soft, nontender. I cannot palpate his abdominal aorta but he does have aneurysmal dilatation of 3.[address] scan. EXTREMITIES: He has 2+ edema in the left lower extremity, 1+ edema in the right with hemosiderin deposition but he does have pulses which are palpable and has no joint effusions. NEUROLOGIC: He is awake, alert and oriented with no focal deficits. ASSESSMENT AND PLAN: Small cell lung carcinoma with marked mediastinal lymphadenopathy which is causing compression of the airways, although I do not think this is severe enough to warrant an intervention. He also has compression of his esophagus which is causing a problem. I would be very aggressive in getting him radiation therapy. I think that if we give him time, he is going to respond and these symptoms should improve. Another option would be to consult gastroenterology to see about a possible esophageal stent.
[2017-11-02] VITALS (7 sets, daily range): BP systolic 89–126; BP diastolic 54–76; PULSE 68–81; TEMP 36.4–37; O2SAT 95–97
[2017-11-02] MEDS: CLINDAMYCIN IV 600 MG in DEXTROSE 5% 50ML 50 ML IV SCH ×3 (04:00→21:03)
[2017-11-02] MEDS: INSULIN ASPART 100 UNITS/ML 3 ML PEN SC SCH ×4 (07:00→20:38)
[2017-11-02] MEDS: MAGNESIUM OXIDE 400 MG TAB PO SCH (07:21)
[2017-11-02] MEDS: APIXABAN 2.5 MG TAB PO SCH ×2 (07:21→21:03)
[2017-11-02] MEDS: MULTIVITAMIN TAB PO SCH (07:21)
[2017-11-02] MEDS: CHOLECALCIFEROL 1000 INTER.UNIT TAB PO SCH (07:21)
[2017-11-02] MEDS: DILTIAZEM HCL (TIAzac) 180 MG CAPCR PO SCH (07:22)
[2017-11-02] MEDS: CHECK FENTANYL PATCH PLACEMENT SCH ×3 (07:22→23:12)
[2017-11-02] MEDS: FENOFIBRATE 145 MG TAB PO SCH (07:22)
[2017-11-02] MEDS: LISINOPRIL 5 MG TAB PO SCH (07:22)
[2017-11-02 09:19] LABS: HEMATOCRIT 30.4 % (42-52); MEAN CELL VOLUME 86.1 fL (80-100); MEAN CORPUSCULAR HEMOGLOBIN 28.3 pg (25-34); MEAN CORPUSCULAR HGB CONC 32.9 g/dl (32-36); MEAN PLATELET VOLUME 10.4 fL (7.4-10.4); PLATELET COUNT 40 K/uL (130-400); RED BLOOD COUNT 3.53 M/uL (4.7-6.1); WHITE BLOOD COUNT 0.15 K/uL (4.8-10.8)
[2017-11-02 09:23] LABS: BUN/CREATININE RATIO 14.1 (10-20); CALCIUM 8.9 mg/dl (8.5-10.1); CREATININE 0.91 mg/dl (0.60-1.40); MAGNESIUM 1.8 mg/dl (1.8-2.4); POTASSIUM 3.9 mmol/L (3.5-5.1)
--- NOTE | 2017-11-02 09:23 | Radiation Oncology Follow-Up ---
Radiation Oncology Follow-Up Date of Visit Nov 02, 2017. Reason For Visit To evaluate for continued radiation therapy Diagnosis (1) Small cell lung cancer Status: Acute Onset Date: 10/04/2017 Histology Subtype: Small Cell Stage: lll (Limited) Permanent Comment: Shortness of breath, weight loss, and difficulty swallowing CT scan 09/20/2017-large mediastinal mass Status post bronchoscopy and biopsies 10/14/2017 Small cell carcinoma Admission and initiation of chemotherapy Initiation of radiation therapy 10/24/2017 has received 3 of 15 fractions. Last Edited By: Ayleen Harrison on Nov 02, 2017 09:06 History of Present Illness Mr. Glasgow is a 57-year-old gentleman who initially presented with shortness of breath and significant weight loss over the last several months. The patient underwent a chest x-ray (reports available) and a CT of the chest on and a CT of the abdomen/pelvis on 09/24/2017 (reports unavailable) which revealed a large mediastinal mass (reports unavailable). The patient underwent a bronchoscopy on 10/04/2017 and biopsied subcarinal lymph node, station 7, and right paratracheal lymph node, station 4, which revealed metastatic small cell lung carcinoma. The patient underwent a PET/CT scan on which revealed: "a metabolically active large bulky mediastinal lymphadenopathy centered in the subcarinal and paraesophageal region with extension into the left hilar region. This demonstrates central necrosis and mass effect and nearby structures causing dilatation of the proximal esophagus. Findings are consistent with biopsy proven small cell carcinoma. Metabolically active 3.9 cm necrotic right upper paratracheal lymph node consistent with small cell carcinoma. Metabolically active 2.4 segment left lower lobe nodule suspicious for additional sites of disease. No evidence of metabolically active disease in the abdomen/pelvis." The patient was seen by Dr. Luis Enrique Olsen from medical oncology 10/17/2017. Dr. Olsen recommended the patient a direct admission due to his severe malnutrition and overall poor performance status. The patient was admitted to [facility] on 10/17/2017. The patient did have a CT chest angiograph completed on 10/17/2017 which revealed: "IMPRESSION: 1. Unremarkable CT angiogram of the thoracic aorta. 2. There is a large heterogeneous mass lesion in the mediastinum as above, likely related to the reported history of recently diagnosed lymphoma. 3. 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 4. Abnormal soft tissue tracking along the bronchovascular bundles in the lower lobes likely represents lymphomatous involvement. 5. Small to moderate pleural effusions with associated atelectasis. 6. Splenomegaly." The patient has been seen by Dr. Britt from medical oncology who is recommended consideration of chemotherapy with radiation therapy. The patient has received carboplatin/etoposide chemotherapy and is currently undergoing etoposide chemotherapy as part of his first cycle. We have been asked to evaluate the patient for consideration of radiation therapy. Interim History Patient began radiation therapy as an inpatient. He was discharged home. While an inpatient his first treatment of chemotherapy was given. He received carboplatin any topical side. He presented to our office on October 29. At that time he had complaints of severe chest pain. Treatment was attempted but he could not lie on the table. He was sent to the emergency room for evaluation. He was admitted to PCU for cardiac evaluation. He was found to be neutropenic. His counts have remained low throughout his hospitalization. He is been seen by Dr. Márquez and most recently Dr. Espino. There had been discussion of possible placement of a bronchial stent. This procedure was canceled due to concern for possible need for being on a ventilator. With the initiation of the chemotherapy and radiation patient has had improvement in his swallowing. He continues to have the chest pain when he lies down flat. Today he gave a pain level of 5 sitting up. He feels his respiratory status is unchanged. He has received 3 of the planned 15 fractions of radiation. He would continue to be evaluated throughout treatment with his recheck pretreatment scans. He continues to have a cough which is productive of "foamy" sputum. He denies hemoptysis. Our office was consult and to review if the patient can possibly restart radiation therapy. The issue remains in regards to his low blood counts. Laboratory studies for today are currently pending. Allergies Coded Allergies: Penicillins (Verified Allergy, Intermediate, RASH, 07/28/16) PT HAD A RXN AND IT COULD NOT BE RULED OUT IF IT WAS THE PCN Home Medications Scheduled Apixaban (Eliquis), 5 MG PO BID Cholecalciferol (Vitamin D3 Super Strength), 2,000 INTER.UNIT PO DAILY Dexamethasone (Dexamethasone), 2 MG PO UD Digoxin (Digoxin), 0.125 MG PO DAILY@16 Diltiazem Hcl Ext Rel (Tiazac), 180 MG PO DAILY Dulaglutide (Trulicity), 0.75 MG INJ WK Fenofibrate (Fenofibrate), 145 MG PO DAILY Fentanyl (Fentanyl), 25 MCG TD Q3D@0900 Ferrous Sulfate (Ferrousul), 325 MG PO DAILY Furosemide (Furosemide), 80 MG PO BID Home O2 Therapy (Oxygen), 2 LITERS NA HS Levothyroxine Sodium (Levothyroxine Sodium), 112 MCG PO Q2D Lisinopril (Lisinopril), 5 MG PO DAILY Magnesium Oxide (Mg Supplement (Magnesium Oxide), 400 MG PO Q2D Multiple Vitamin (Multivitamin), 1 TAB PO DAILY Potassium Ext Rel (Klor-Con), 3 TABS PO BID Pravastatin Sodium (Pravastatin Sodium), 80 MG PO DAILY Scheduled PRN Cyclobenzaprine HCl (Cyclobenzaprine HCl), 10 MG PO HS PRN for Muscle Spasms Eszopiclone (Eszopiclone), 1 MG PO HS PRN for Sleep Hydrocodone/Acetaminophen 7.5MG/325MG ([place] 7.5MG/325MG), 1 TAB PO Q4-6HRS PRN for Pain Metolazone (Zaroxolyn), 5 MG PO DAILY PRN for Fluid Retention Nitroglycerin (Nitrostat), 0.4 MG SL UD PRN for Chest Pain Review of Systems Gastrointestinal: Symptoms: Nausea (he feels this is minor and has not requested any antinausea medication) Respiratory: Additional Notes: See history of present illness. Skin: Symptoms: No Problems Additional Notes: He did have a mild headache yesterday. This is in the left temporal area. This resolved. Physical Exam Vital Signs Date Time Temp Pulse Resp B/P (MAP) Pulse Ox O2 Delivery O2 Flow Rate FiO2 11/02/17 08:00 Room Air 11/02/17 07:42 36.4 81 19 108/70 (83) 95 Room Air 11/02/17 04:17 36.5 69 17 126/76 (93) 97 Nasal Cannula 2.0 11/02/17 04:00 Room Air 11/02/17 00:01 Room Air 11/01/17 22:55 36.5 93 18 114/74 (87) 95 Room Air 11/01/17 20:37 36.9 80 18 112/73 (86) 99 Nasal Cannula 2.0 11/01/17 20:00 Room Air 11/01/17 16:25 81 11/01/17 16:06 36.6 81 18 114/72 (86) 100 Nasal Cannula 2.0 11/01/17 16:00 Room Air 11/01/17 12:09 36.5 71 22 135/75 (95) 97 Room Air 11/01/17 12:05 36.6 91 20 122/73 (89) 93 Room Air 11/01/17 12:00 Room Air 11/01/17 08:00 Room Air 11/01/17 07:29 36.5 83 20 103/60 (74) 98 Nasal Cannula 2.0 11/01/17 06:35 36.7 79 22 110/71 96 Nasal Cannula 2.0 100 11/01/17 04:00 Room Air 11/01/17 03:47 36.7 79 22 110/71 (84) 96 Nasal Cannula 2.0 11/01/17 00:01 Room Air 10/31/17 23:34 36.6 89 21 103/63 (76) 94 Room Air 10/31/17 20:37 36.7 94 18 97/67 (77) 95 Room Air 10/31/17 20:00 Room Air 10/31/17 16:03 83 10/31/17 16:00 Room Air 10/31/17 16:00 36.4 80 18 81/61 (68) 93 Room Air 10/31/17 12:12 36.4 83 22 78/65 (69) 100 Room Air 2.0 100 10/31/17 12:00 Room Air ECOG Performance Status: 1 Fatigue: Mild General Appearance: no apparent distress Eyes: normal inspection, EOMI ENT: normal ENT inspection Respiratory/Chest: no respiratory distress, no accessory muscle use, + decreased breath sounds Cardiovascular: regular rate, rhythm, no gallop, no murmur Abdomen: non tender, no organomegaly Extremities: + pertinent finding (+2 edema, stasis dermatitis) Neurologic/Psychiatric: no motor/sensory deficits, alert, normal mood/affect Skin: warm/dry Pain Management Patient Reports Pain: Yes Side: Bilateral Pain Location: Chest Patient Preferred Pain Scale: 0 - 10 Initial Pain Intensity: 5.0 Level of Consciousness: Spontaneously Alert Relief Measures: Medication - Injection Pain Intervention: See MAR Pain Management Plan He has a fentanyl patch 25 mcg/h. He also has morphine available for pain when necessary. Laboratory Laboratory Results: were reviewed, and pertinent findings noted below Laboratory Comments: 11/02/17 08:19 11/02/17 08:19 Test 11/02/17 06:36 11/02/17 08:19 Bedside Glucose 84 mg/dl (70-99) Red Blood Count 3.53 M/uL (4.7-6.1) Mean Corpuscular Volume 86.1 fL (80-100) Mean Corpuscular Hemoglobin 28.3 pg (25-34) Mean Corpuscular Hemoglobin Concent 32.9 g/dl (32-36) RDW Standard Deviation 44.8 fL (36.4-46.3) RDW Coefficient of Variation 14.2 % (11.5-14.5) Mean Platelet Volume 10.4 fL (7.4-10.4) Anion Gap 7.0 mmol/L (3-11) Est Creatinine Clear Calc Drug Dose 110.2 ml/min Estimated GFR () 108.8 Estimated GFR (Non- 93.9 BUN/Creatinine Ratio 14.1 (10-20) Calcium Level 8.9 mg/dl (8.5-10.1) Magnesium Level 1.8 mg/dl (1.8-2.4) Pathology Pathology Results: were reviewed, and pertinent findings noted in HPI Imaging Imaging Studies: were reviewed, and pertinent findings noted below Imaging Comments Patient: TYREE GLASGOW Address1: [address] [place] [address] Rec: [id number] [facility] [id number] Zip: [place] [address] Date: 1960 Sex: M Room/Bed: [facility] Ref Phy: Richard Fatima D.O. SC: [place]ak Att Phy: Pancho Pacheco MD Report #: [id number] Maricarmen Phy: Drew James D.O. Test: NCKW Admit Phy: Beatrice Keys DO Swimmer: NADINE Interpreting Phy: Addison Adler M.D. Diagnosis: DYSPNEA Ordering Phy: Pancho Pacheco MD Service Date: 11/01/17 Admit Date: 10/29/1712/04/17 MNE: [id number] CONF: DICTATED BY: Addison Adler M.D.]] CC: Drew James D.O., Jeffrey A., D.O. Palepu, Rajendra P., MD Endcc: [~ rep ct add3]] CT SOFT TISSUE NECK WITH CT DOSE: 645.15 mGy.cm CLINICAL HISTORY: dysphagia. lung cancer TECHNIQUE: Helical images were acquired during intravenous administration of 70 cc of Optiray 320. A dose lowering technique was utilized adhering to the principles of ALARA. COMPARISON STUDY: None. FINDINGS: The visualized portions of the lung apices reveal bulky mediastinal lymphadenopathy. No thyroid masses are visualized. No salivary gland masses are visualized. There is no pathologic cervical lymphadenopathy. There are no fluid collections suspicious for abscess. There is no evidence of airway compromise. No mucosal space masses are visualized. There is a right mastoid effusion. There are postsurgical changes involving the mastoids. Bilateral cochlear implants are visualized. IMPRESSION: 1. Bulky mediastinal lymphadenopathy 2. No pathologic neck masses. No evidence of pathologic cervical lymphadenopathy. Electronically signed by: Addison Adler M.D. 11/01/2017 1:07 PM Dictated Date/Time: 11/01/2017 1:02 PM Patient: TYREE GLASGOW Address1: [address] [place] [address] Rec: [id number] Address2: Acct ID: [id number] [facility] Zip: [place] [address] Date: 1960 Sex: M Room/Bed: Ref Phy: Richard Fatima D.O. SC: IMER Att Phy: Report #: [id number] Maricarmen Phy: Drew James D.O. Test: AAPW Admit Phy: Swimmer: LAZARUS Interpreting Phy: Tyree Yang M.D. Diagnosis: CHEST PAIN-COMING FROM RAD/ ONC Ordering Phy: Sushil Dickens M.D. Service Date: 10/29/17 Admit Date: 10/29/17 MNE: PWRSCRIBE CONF: DICTATED BY: Tyree Yang M.D.]] CC: Sushil Dickens M.D. Erdman, Kenneth D.O. Gilbert, Jeffrey A., D.O. Endcc: [~ rep ct add3]] ANGIO ABD/PELVIS WITH CONTRAST CLINICAL HISTORY: Dyspnea pleural effusions TECHNIQUE: Transaxial acquisition with analysis of multi axial reformatted images COMPARISON STUDY: PET scan dated 10/09/2017 [facility] FINDINGS: Bilateral pleural effusions similar. Focal consolidative components of the right pleural effusion similar as compared to the prior exam. Liver appears generally uniform. Prior cholecystectomy. Moderate cortical scarring of the right kidney. Left kidney appears to have been resected. There is is distended and fluid-filled structure occupying the left renal fossa extending to the bowel on the left. This is unchanged in the prior study and appears to be postoperative. The complex bowel architecture in the central abdomen as remain generally similar. 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 There is stable. It is associated with mild aneurysmal dilatation of 3.5 cm maximum dimension. This is similar as compared to the prior study. There is considerable atherosclerotic change of the iliac arterial vasculature. A high-grade stenotic process, however is not appreciated. There is present 50% narrowing origin of the right superficial femoral artery. This is seen to a slightly lesser extent on the left. IMPRESSION: 1. 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 2. This is unchanged from the prior exam. 3. Chronic postoperative changes mid abdominal bowel pattern including resection of the left kidney. 4. Stable bilateral pleural effusions with moderate complexity on the right as well as noted previously. 6. No acute or interval process of the arterial vasculature. 7. 50 present narrowing of the proximal superficial femoral arteries bilaterally. 8. All findings are stable compared to the patient's prior PET scan with no evidence for an acute vascular process. The above report was generated using voice recognition software. It may contain grammatical, syntax or spelling errors. Electronically signed by: Tyree Yang M.D. 10/29/2017 12:05 PM Dictated Date/Time: 10/29/2017 11:53 AM Assessment & Plan Plan: Will await the final results of his laboratory studies today. These will be reviewed with medical oncology. Determination will be made in regards to treatment today. The patient had previously planned to continue treatment in [place]. Once discharged the arrangements can be made again to be seen in [place]. He previously been scheduled to be seen on 10/30/2017. Unfortunately he had been admitted prior to that appointment. He did have a headache yesterday. With the diagnosis of small cell carcinoma the patient should have a staging MRI of the brain. If treatment is approved he'll be brought to radiation oncology later today. He will need premedicated with pain medication prior to his therapy. The final count for the white blood cell today is 150 total white blood cells. The platelets were 40,000. These results were discussed with Dr. Britt. It was felt that radiation should continue to be held until there is improvement in the white count. We discussed his current status. He does have improvement in swallowing. This is showing clinical signs of improvement. We will reevaluate his laboratory studies again on Sunday. If there has been improvement he may be able to undergo treatment on Sunday. Total Time In Follow-Up I spent 20 minutes speaking to the patient performing examination. I spent 15 minutes reviewing information in completing this note. AK Copy To Brigido Britt D.O.; Pancho Pacheco MD; Dereck Espino MD Problem Qualifiers (1) Small cell lung cancer: Laterality: left Qualified Codes: C34.92 - Malignant neoplasm of unspecified part of left bronchus or lung
[2017-11-02] MEDS: LEVOFLOXACIN / D5W 750 MG in PREMIXED IN D5W 150 ML IV SCH (10:30)
[2017-11-02] MEDS: MoRPHine SULFATE 4 MG/ML 1 ML CARP\\VIAL IV PRN (11:30)
[2017-11-02] MEDS: LACTOBACILLUS ACIDOPHILUS (FLORANEX) TAB PO SCH ×2 (11:31→16:54)
[2017-11-02] MEDS: ONDANSETRON INJ 2 MG/ML 2 ML VIAL IV PRN ×2 (11:46→23:12)
--- NOTE | 2017-11-02 12:40 | SURGERY PROGRESS NOTE ---
DATE: 11/02/2017 SUBJECTIVE: Mr. Glasgow is seen today on 11/02/2017. I saw him last night for the first time. He is complaining of dysphagia and there is a question of bronchial stenosis. He is on room air with excellent saturations. He really does not appear to be short of breath. He is swallowing better. I discussed this case with Dr. Britt and Dr. Rendon. With his white count being so low, we are going to hold off doing radiation until reevaluation after the weekend. I feel that is totally appropriate. I do not believe this patient needs a bronchial stent and I relieved and hopeful that he does not need an esophageal stent. I think he may be responding to the chemotherapy and radiation already received. MTDD
[2017-11-02] MEDS: FENTANYL PATCH REMOVE & WASTE SCH (13:26)
[2017-11-02] MEDS: FENTANYL 25 MCG/HR TDSY TD SCH (13:40)
[2017-11-02] MEDS: DIGOXIN 0.125 MG TAB PO SCH (16:49)
--- NOTE | 2017-11-02 18:20 | Progress Note ---
Internal Med Progress Note Date of Service: Nov 02, 2017. Provider Documentation: SUBJECTIVE: resting comfortably has some chest pain denies sob has some cough swallowing better today OBJECTIVE: Vital Signs-as noted below Exam: General-alert and awake and not in distress ENT- Normal hearing Neck-no neck masses Lungs-cta b/l no wheezing or crackles Heart-s1 and s2 heard regular rate and rhythm no murmurs Abdomen-soft BS present non tender no distension Extremities- pedal edema present no erythema Neuro-alert and awake moves extremities Lab data as noted below. ASSESSMENT & PLAN: SOB/CP Pt with hx small cell CA with mediastinal mass presents with worsening sob ct chest shows partial occlusion of left main bronchus plan for bronchoscopy with stent placement but currently pulmonary signed off consulted CT surgery for recommendations- thinks bronchial stent may not be need at this time but may need radiation to reduce oesophageal compression consulted rad/oncology- await pancytopenia to improve before initiating radiation post obstructive pneumonia/.pneumonitis? aspiration? started on Levaquin and clindamycin to continue abx Pancytopenia with neutropenia Pt received chemo last week. WBC: 0.18, was 1.28 on 10/26/17 neutropenic precautions persistent consulted heme/onco f/u cbc in am A-Fib currently rate controlled. Dig level: 0.8 on eliquis on Cardizem and digoxin with hold parameters will monitor. Dysphagia has some difficult swallowing today ct soft neck was unremarkable plan for radiation to reduce oesophageal compression tolerating mechanical soft diet CAD negative troponin. Lipid panel: 10/18/17 - total: 123, LDL: 33, HDL: 48, Tri continue pravastatin stable Acute DIASTOLIC CHF? congestion and pleural effusions on imaging studies on Lasix IV which will be stopped because of hypotension will monitor. CKD III Cr: 1.17 on presentation cr 0.95 today will f/u labs Hypotension stopping Lasix bp Meds with hold parameters fluid bolus and monitor echo- normal ef asymptomatic resolved and stopped fluids ARF from hypotension holding BP meds on fluids f/u labs.resolved DM A1c6.3 on 10/18/17 holding trulicity on NovoLog sliding scale per protocol HTN currently hypotensive to restart BP meds when BP elevates HYPOTHYROIDISM TSH: 0.89 -continue levothyroxine SLEEP APENA Pt reports doesn't tolerate CPAP, has tried in past DVT PROPHYLAXIS -SCD's DISPOSITION monitor in tele-DNR, DNI as per h and p to be determined Vital Signs: Date Time Temp Pulse Resp B/P (MAP) Pulse Ox O2 Delivery O2 Flow Rate FiO2 11/02/17 16:49 72 11/02/17 15:34 36.6 68 18 89/54 (66) 95 Room Air 11/02/17 11:34 36.7 80 20 107/67 (80) 96 11/02/17 08:00 Room Air 11/02/17 07:42 36.4 81 19 108/70 (83) 95 Room Air 11/02/17 04:17 36.5 69 17 126/76 (93) 97 Nasal Cannula 2.0 11/02/17 04:00 Room Air 11/02/17 00:01 Room Air 11/01/17 22:55 36.5 93 18 114/74 (87) 95 Room Air 11/01/17 20:37 36.9 80 18 112/73 (86) 99 Nasal Cannula 2.0 11/01/17 20:00 Room Air Lab Results: Results Past 24 Hours Test 11/01/17 20:40 11/02/17 06:36 11/02/17 08:19 Range/Units Bedside Glucose 90 84 70-99 mg/dl White Blood Count 0.15 4.8-10.8 K/uL Red Blood Count 3.53 4.7-6.1 M/uL Hemoglobin 10.0 14.0-18.0 g/dL Hematocrit 30.4 42-52 % Mean Corpuscular Volume 86.1 80-100 fL Mean Corpuscular Hemoglobin 28.3 25-34 pg Mean Corpuscular Hemoglobin Concent 32.9 32-36 g/dl RDW Standard Deviation 44.8 36.4-46.3 fL RDW Coefficient of Variation 14.2 11.5-14.5 % Platelet Count 40 130-400 K/uL Mean Platelet Volume 10.4 7.4-10.4 fL Sodium Level 132 136-145 mmol/L Potassium Level 3.9 3.5-5.1 mmol/L Chloride Level 98 98-107 mmol/L Carbon Dioxide Level 27 21-32 mmol/L Anion Gap 7.0 3-11 mmol/L Blood Urea Nitrogen 13 7-18 mg/dl Creatinine 0.91 0.60-1.40 mg/dl Est Creatinine Clear Calc Drug Dose 110.2 ml/min Estimated GFR () 108.8 Estimated GFR (Non- 93.9 BUN/Creatinine Ratio 14.1 10-20 Random Glucose 102 70-99 mg/dl Calcium Level 8.9 8.5-10.1 mg/dl Magnesium Level 1.8 1.8-2.4 mg/dl
[2017-11-02] MEDS: PRAVASTATIN SOD 40 MG TAB PO SCH (21:03)
[2017-11-03] VITALS (7 sets, daily range): BP systolic 95–113; BP diastolic 58–69; PULSE 67–92; TEMP 36.2–36.8; O2SAT 92–98
[2017-11-03] MEDS: MoRPHine SULFATE 4 MG/ML 1 ML CARP\\VIAL IV PRN ×2 (00:35→23:32)
[2017-11-03] MEDS: CLINDAMYCIN IV 600 MG in DEXTROSE 5% 50ML 50 ML IV SCH ×3 (03:16→19:47)
[2017-11-03] MEDS: MULTIVITAMIN TAB PO SCH (08:00)
[2017-11-03] MEDS: LACTOBACILLUS ACIDOPHILUS (FLORANEX) TAB PO SCH ×3 (08:00→17:42)
[2017-11-03] MEDS: LEVOTHYROXINE 112 MCG TAB PO SCH (08:00)
[2017-11-03] MEDS: APIXABAN 2.5 MG TAB PO SCH ×2 (08:01→21:13)
[2017-11-03] MEDS: MAGNESIUM OXIDE 400 MG TAB PO SCH (08:01)
[2017-11-03] MEDS: CHOLECALCIFEROL 1000 INTER.UNIT TAB PO SCH (08:01)
[2017-11-03] MEDS: CHECK FENTANYL PATCH PLACEMENT SCH ×3 (08:02→23:32)
[2017-11-03] MEDS: DILTIAZEM HCL (TIAzac) 180 MG CAPCR PO SCH (08:02)
[2017-11-03] MEDS: FENOFIBRATE 145 MG TAB PO SCH (08:03)
[2017-11-03] MEDS: INSULIN ASPART 100 UNITS/ML 3 ML PEN SC SCH ×4 (08:06→21:00)
[2017-11-03] MEDS: LEVOFLOXACIN / D5W 750 MG in PREMIXED IN D5W 150 ML IV SCH (10:39)
[2017-11-03] MEDS: FILGRASTIM 480 MCG/1.6 ML VIAL SC SCH (11:10)
[2017-11-03] MEDS: ONDANSETRON INJ 2 MG/ML 2 ML VIAL IV PRN ×3 (11:30→23:32)
--- NOTE | 2017-11-03 11:40 | SURGERY PROGRESS NOTE ---
DATE: 11/03/2017 DATE: 11/03/2017 Mr. Glasgow looks better to me today. He states he is swallowing a bit better and his breathing is "a bit better." All in all I think he looks better. I am hopeful he will continue to respond. He is scheduled to resume radiation therapy in 11/05/2017. He is scheduled for repeat lab work tomorrow.
[2017-11-03] MEDS: DIGOXIN 0.125 MG TAB PO SCH (16:30)
--- NOTE | 2017-11-03 17:07 | Progress Note ---
Internal Med Progress Note Date of Service: Nov 03, 2017. Provider Documentation: SUBJECTIVE: sitting on the chair comfortably has some chest pain when coughing more has some sob has some cough swallowing better with soft diet OBJECTIVE: Vital Signs-as noted below Exam: General-alert and awake and not in distress ENT- Normal hearing Neck-no neck masses Lungs-cta b/l no wheezing or crackles Heart-s1 and s2 heard regular rate and rhythm no murmurs Abdomen-soft BS present non tender no distension Extremities- lower extremity edema present no erythema Neuro-alert and awake moves extremities Lab data as noted below. ASSESSMENT & PLAN: SOB/CP Pt with hx small cell CA with mediastinal mass presents with worsening sob ct chest shows partial occlusion of left main bronchus plan for bronchoscopy with stent placement but currently pulmonary signed off consulted CT surgery for recommendations- thinks bronchial stent may not be need at this time but may need radiation to reduce oesophageal compression consulted rad/oncology- await pancytopenia to improve before initiating radiation continue to monitor Acute DIASTOLIC CHF? congestion and pleural effusions on imaging studies Was on Lasix IV which was stopped because of hypotension restart on iv Lasix and monitor post obstructive pneumonia/.pneumonitis? aspiration? started on Levaquin and clindamycin to continue abx Pancytopenia with neutropenia Pt received chemo last week. WBC: 0.18, was 1.28 on 10/26/17 neutropenic precautions persistent consulted heme/onco- started on Neupogen f/u cbc in am A-Fib currently rate controlled. Dig level: 0.8 on eliquis on Cardizem and digoxin with hold parameters cutting on back on cardzem to 120mg daily to bring BP up for iv lasix will monitor HR Dysphagia has some difficult swallowing today ct soft neck was unremarkable plan for radiation to reduce oesophageal compression tolerating mechanical soft diet CAD negative troponin. Lipid panel: 10/18/17 - total: 123, LDL: 33, HDL: 48, Tri continue pravastatin stable ARF CKD III Cr: 1.17 on presentation cr 0.95 today will f/u labs Hypotension stopping Lasix bp Meds with hold parameters fluid bolus and monitor echo- normal ef asymptomatic resolved and stopped fluids DM A1c6.3 on 10/18/17 holding trulicity on NovoLog sliding scale per protocol HTN on Cardizem with hold parameter lisinopril on hold for low BP HYPOTHYROIDISM TSH: 0.89 -continue levothyroxine SLEEP APENA Pt reports doesn't tolerate CPAP, has tried in past DVT PROPHYLAXIS -SCD's DISPOSITION monitor in tele-DNR, DNI as per h and p to be determined Vital Signs: Date Time Temp Pulse Resp B/P (MAP) Pulse Ox O2 Delivery O2 Flow Rate FiO2 11/03/17 15:32 36.6 69 16 108/69 (82) 92 Room Air 11/03/17 12:00 Room Air 11/03/17 11:43 36.5 67 22 99/64 (76) 93 Nasal Cannula 2.0 11/03/17 08:00 Room Air 11/03/17 07:09 36.2 76 18 95/61 (72) 94 Nasal Cannula 2.0 11/03/17 04:00 Room Air 11/03/17 03:13 36.4 92 18 101/66 (78) 96 Room Air 11/03/17 00:01 Room Air 11/02/17 23:35 37.0 78 18 99/66 (77) 96 Room Air 11/02/17 20:00 Room Air 11/02/17 19:16 36.6 78 18 100/63 (75) 96 11/02/17 18:56 100/63 (75) Lab Results: Results Past 24 Hours Test 11/02/17 20:04 11/03/17 06:58 11/03/17 10:36 Range/Units Bedside Glucose 116 100 91 70-99 mg/dl
[2017-11-03] MEDS ORDERED: FUROSEMIDE INJ 40 MG in SYRINGE 0 ML IV ONE (17:15)
[2017-11-03] MEDS: PRAVASTATIN SOD 40 MG TAB PO SCH (21:13)
[2017-11-04] VITALS (7 sets, daily range): BP systolic 90–116; BP diastolic 57–72; PULSE 82–102; TEMP 36.5–36.9; O2SAT 91–97
[2017-11-04] MEDS: CLINDAMYCIN IV 600 MG in DEXTROSE 5% 50ML 50 ML IV SCH ×3 (03:54→19:29)
[2017-11-04 06:37] LABS: HEMATOCRIT 26.4 % (42-52); MEAN CELL VOLUME 86.3 fL (80-100); MEAN CORPUSCULAR HEMOGLOBIN 27.8 pg (25-34); MEAN CORPUSCULAR HGB CONC 32.2 g/dl (32-36); RED BLOOD COUNT 3.06 M/uL (4.7-6.1); WHITE BLOOD COUNT 1.97 K/uL (4.8-10.8)
[2017-11-04 06:47] LABS: MEAN PLATELET VOLUME 10.3 fL (7.4-10.4); PLATELET COUNT 57 K/uL (130-400)
[2017-11-04 07:11] LABS: BUN/CREATININE RATIO 13.8 (10-20); CALCIUM 8.6 mg/dl (8.5-10.1); CREATININE 0.95 mg/dl (0.60-1.40); MAGNESIUM 1.5 mg/dl (1.8-2.4); POTASSIUM 3.9 mmol/L (3.5-5.1)
[2017-11-04 07:12] LABS: BASO ABS # 0.04 K/uL (0-0.2); COMPLETE YES; EOS % 0.5 %; GIANT PLATELETS 2+; LYMPH % 19.3 %; LYMPH ABS # 0.38 K/uL (1.2-3.4); MONO % 11.2 %; OVALOCYTES 1+; TOXIC GRANULATION 3+
[2017-11-04] MEDS ORDERED: MAGNESIUM SULFATE 1GM / D5W 1 GM in PREMIXED IN D5W 100 ML IV ONE (08:00)
[2017-11-04] MEDS: FILGRASTIM 480 MCG/1.6 ML VIAL SC SCH (08:39)
[2017-11-04] MEDS: MAGNESIUM OXIDE 400 MG TAB PO SCH ×2 (08:39→20:59)
[2017-11-04] MEDS: LACTOBACILLUS ACIDOPHILUS (FLORANEX) TAB PO SCH ×3 (08:40→17:40)
[2017-11-04] MEDS: MULTIVITAMIN TAB PO SCH (08:40)
[2017-11-04] MEDS: APIXABAN 2.5 MG TAB PO SCH ×2 (08:41→20:59)
[2017-11-04] MEDS: CHECK FENTANYL PATCH PLACEMENT SCH ×3 (08:41→23:31)
[2017-11-04] MEDS: DILTIAZEM HCL 120 MG EXT REL CAP PO SCH ×2 (08:41→08:53)
[2017-11-04] MEDS: FENOFIBRATE 145 MG TAB PO SCH (08:41)
[2017-11-04] MEDS: CHOLECALCIFEROL 1000 INTER.UNIT TAB PO SCH (08:44)
[2017-11-04] MEDS: INSULIN ASPART 100 UNITS/ML 3 ML PEN SC SCH ×4 (08:53→20:59)
[2017-11-04] MEDS: FUROSEMIDE INJ 20 MG in SYRINGE 0 ML IV SCH ×2 (09:00→11:39)
[2017-11-04] MEDS: LEVOFLOXACIN / D5W 750 MG in PREMIXED IN D5W 150 ML IV SCH (11:09)
--- NOTE | 2017-11-04 12:19 | ONCOLOGY CONSULTATION ---
DATE OF CONSULTATION: 11/04/2017 MEDICAL ONCOLOGY CONSULTATION REASON FOR CONSULTATION: A 57-year-old gentleman well known to [facility] with limited-stage small cell lung cancer. HISTORY OF PRESENT ILLNESS: Luis Felipe is a very pleasant 57-year-old gentleman familiar to the [facility], recently diagnosed with limited-stage small cell lung cancer, was admitted to [facility] on October 29 with substernal chest pain and dysphagia. The patient was previously hospitalized from 10/17/2017 through 10/27/2017 with chest pain and dysphagia. Apparently, there was modest improvement upon discharge; however, his pain worsened as he continued radiation therapy. In fact, Luis Felipe was sent directly to the Emergency Room from radiation because of constant mid sternal chest pain, worsening with movement, deep inspiration and being supine. Luis Felipe admits to some improvement when he sits upright. He has been on oxycodone and nitroglycerin with minimal relief. He has also been utilizing supplemental oxygen over the past couple of days. He was subsequently admitted for further workup. Luis Felipe was originally evaluated by myself on 10/17/2017, at which time he was in general decline over the past several months, reporting weight loss of 70 pounds and associated anorexia. Again, at that time, he had been complaining of anterior chest wall pain, especially on inspiration with marked congestion and sputum production. He was not experiencing fever or chills. Unfortunately, Luis Felipe has multiple comorbid issues including chronic diastolic heart failure, and abdominal aortic aneurysm, chronic kidney disease, atrial fibrillation and more recently the diagnosis of a small cell lung cancer. In the midst of a workup for general decline, the patient had undergone CT scan of the chest which revealed emergent lung cancer. Biopsy from bronchoscopy confirmed the diagnosis. Staging PET scan was performed on 10/09/2017 revealing a large bulky mediastinal lymphadenopathy with extension into the left hilar region demonstrating central necrosis and mass effect, causing dilatation of the proximal esophagus which was most likely attributable to his dysphagia. Additionally, a 3.9 cm necrotic right upper paratracheal lymph node and a metabolically active 0.4 cm left lobe nodule also suspicious for disease extension. The patient received his initial course of carboplatin and etoposide in the hospital and continues to receive concurrent radiation therapy. His peripheral counts demonstrate neutropenia and was recently started on supplemental Neupogen. PAST MEDICAL HISTORY: Again, significant for chronic renal insufficiency, congestive heart failure, diabetes mellitus type 2, history of malignant tumor of the kidney, paroxysmal atrial fibrillation and small cell lung cancer. PAST SURGICAL HISTORY: Includes a fine needle aspiration as described in the HPI and bronchial washing. MEDICATIONS: Prior to admission include Eliquis 5 mg p.o. b.i.d., cholecalciferol 2000 international units daily, dexamethasone 2 mg p.o. every day, digoxin 0.125 mg p.o. every day, diltiazem 180 mg p.o. every day, Trulicity 0.75 mg injection weekly, Fenofibrate 145 mg p.o. every day, fentanyl 25 mcg topically every 3 days, ferrous sulfate 325 mg p.o. daily, Lasix 80 mg p.o. b.i.d., home O2 at 2 liters via nasal cannula, levothyroxine 112 mcg p.o. every day, lisinopril 5 mg p.o. every day, magnesium oxide 400 mg p.o. daily, multivitamin and potassium chloride 3 tablets p.o. b.i.d., and pravastatin 80 mg p.o. every day. ALLERGIES: PENICILLIN. SOCIAL HISTORY: The patient is single, lives alone, currently disabled, reformed smoker. FAMILY HISTORY: Mother significant for diabetes and coronary artery disease; father with history of cancer; sister with possible uterine cancer and stroke. REVIEW OF SYSTEMS: GENERAL: As per HPI, continued dysphagia, chest pain with associated anorexia. Denies any fevers or chills. Weight loss is 70 pounds prior to diagnosis. SKIN: No rashes or lesions. No history dermatosis. HEENT: Negative for headaches, lightheadedness or dizziness. No visual or hearing deficits. No sinus symptoms, sore throat or dysphagia. LYMPH: No history of lymphadenopathy or lymphoproliferative disorder. CARDIAC: Positive for coronary artery disease, positive for diastolic heart failure. No current angina. Positive for substernal chest pain, which is most likely secondary to disease expansion. PULMONARY: He is oxygen dependent, no present cough or hemoptysis. He is not presently dyspneic. GASTROINTESTINAL: Negative for abdominal pain, nausea, vomiting, diarrhea or constipation. GENITOURINARY: No history of prostate disease. No hematuria, dysuria, or urinary incontinence. PSYCHIATRIC: Negative for anxiety, depression or psychoses. ENDOCRINE: Positive for diabetes. Positive for hypothyroidism. NEUROLOGIC: Negative for seizure, stroke, or migraine headache. HEMATOLOGIC: Positive for treatment-induced pancytopenia. PHYSICAL EXAMINATION: GENERAL: A very pleasant 57-year-old gentleman lying supine in bed, awake, alert, and answers questions appropriately, in no acute distress. VITAL SIGNS: Temperature 36.6, pulse 82, respirations 18, blood pressure 101/65. SKIN: Warm, dry, noncyanotic without petechia, rash or ecchymosis. HEAD: Atraumatic, normocephalic. EYES: PERRLA, EOMI. Sclerae nonicteric. No conjunctival injection. Nares are patent without rhinorrhea or discharge. Throat clear. Tongue midline. Mucous membranes are moist. NECK: Supple without JVD or thyromegaly. LYMPH: No cervical, supraclavicular, axillary or inguinal palpable nodes. HEART: Regular rate and rhythm. No clicks, rubs, murmurs or gallops. LUNGS: Clear to auscultation bilaterally. ABDOMEN: Soft, nontender, nondistended without palpable hepatosplenomegaly. No rigidity or guarding appreciated. MUSCULOSKELETAL: Strength and pulses are equal. No clubbing, cyanosis or edema otherwise. NEUROLOGICALLY: He is awake, alert and oriented x3. Cranial nerves II-XII are intact. There are no gross motor or sensory deficits noted. LABORATORY DATA: WBC count 1970, hemoglobin 8.5, platelet count 57,000. Sodium 131, potassium 3.9, chloride 99, carbon dioxide 26, creatinine 0.95, BUN 13, magnesium 1.5. RADIOGRAPHIC DATA: CT scan of the chest performed on admission again reveals a bulky heterogeneous soft tissue attenuating infiltrating mass in the mediastinum suggests a conglomerate adenopathy correlating with PET findings. Moderate right and small to moderate left pleural effusions with compressive bibasilar atelectasis. Additional consolidative ground-glass opacities are seen notably within the left lung base, suggesting associated pneumonia or aspiration pneumonitis. IMPRESSION: 1. Limited stage small cell lung cancer. 2. Pancytopenia attributable to chemotherapeutic effect. 3. Atrial fibrillation. 4. Dysphagia. 5. Coronary artery disease. 6. Acute renal failure, chronic kidney disease stage III. 7. Hypotension. PLAN: Mr. Glasgow. ASSESSMENT AND PLAN: Mr. Glasgow is a pleasant but unfortunate 57 gentleman who was diagnosed with limited stage small cell lung cancer back in late September. At the time of diagnosis was in general decline with significant weight loss and anorexia. Dysphagia and chest pain have been problematic since diagnosis; however, he does show evidence of some improvement. At bedside today, he states he can swallow a bit better and pain is certainly less. He was profoundly neutropenic and started on Neupogen 480 mcg subQ. Luis Felipe has had a very nice initial response with his ANC over 1000, at present. His platelets are also on the upswing. From a hematologic standpoint, no further intervention is necessary and I expect him to recover spontaneously. Mr. Glasgow is due for chemotherapy in the next week or so. Ideally, I would like him discharge and would see him back as an outpatient when medically stable. He is tentatively to resume radiation therapy tomorrow as well. I agree with current medical management and have nothing further to add at this time. We will continue to follow him periodically during his hospital stay. Thank you very much for assisting us in the care of this very pleasant gentleman. ALIRIO
[2017-11-04] MEDS: ONDANSETRON INJ 2 MG/ML 2 ML VIAL IV PRN (14:04)
--- NOTE | 2017-11-04 16:57 | Progress Note ---
Internal Med Progress Note Date of Service: Nov 04, 2017. Provider Documentation: SUBJECTIVE: sitting on the chair comfortably has some cough, sob and chest pain afebrile eating ok moved bowels swelling in extremities slightly decreased OBJECTIVE: Vital Signs-as noted below Exam: General-alert and awake and not in distress ENT- Normal hearing Neck-no neck masses Lungs-cta b/l no wheezing or crackles Heart-s1 and s2 heard regular rate and rhythm no murmurs Abdomen-soft BS present non tender no distension Extremities- lower extremity edema present no erythema Neuro-alert and awake moves extremities Lab data as noted below. ASSESSMENT & PLAN: SOB/CP Pt with hx small cell CA with mediastinal mass presents with worsening sob ct chest shows partial occlusion of left main bronchus plan for bronchoscopy with stent placement but currently pulmonary signed off consulted CT surgery for recommendations- thinks bronchial stent may not be need at this time but may need radiation to reduce oesophageal compression consulted rad/oncology- await pancytopenia to improve before initiating radiation-possibly tomorrow continue to monitor Acute DIASTOLIC CHF? congestion and pleural effusions on imaging studies Was on Lasix IV which was stopped because of hypotension restarted on iv Lasix and monitor post obstructive pneumonia/.pneumonitis? aspiration? started on Levaquin and clindamycin# 6 to continue abx to complete 10 day course Pancytopenia with neutropenia Pt received chemo last week. WBC: 0.18, was 1.28 on 10/26/17 neutropenic precautions persistent consulted heme/onco- started on Neupogen improving appreciate heme/onco inputs A-Fib currently rate controlled. Dig level: 0.8 on eliquis on Cardizem and digoxin with hold parameters cutting on back on cardzem to 120mg daily to bring BP up for iv lasix cardizem held today will monitor Dysphagia has some difficult swallowing today ct soft neck was unremarkable plan for radiation to reduce oesophageal compression tolerating mechanical soft diet CAD negative troponin. Lipid panel: 10/18/17 - total: 123, LDL: 33, HDL: 48, Tri continue pravastatin stable ARF CKD III Cr: 1.17 on presentation cr 0.95 today will f/u labs Hypotension stopping Lasix bp Meds with hold parameters fluid bolus and monitor echo- normal ef asymptomatic resolved and stopped fluids DM A1c6.3 on 10/18/17 holding trulicity on NovoLog sliding scale per protocol HTN on Cardizem with hold parameter lisinopril on hold for low BP HYPOTHYROIDISM TSH: 0.89 -continue levothyroxine SLEEP APENA Pt reports doesn't tolerate CPAP, has tried in past DVT PROPHYLAXIS -SCD's DISPOSITION monitor in tele-DNR, DNI as per h and p to be determined Vital Signs: Date Time Temp Pulse Resp B/P (MAP) Pulse Ox O2 Delivery O2 Flow Rate FiO2 11/04/17 16:12 Room Air 11/04/17 15:27 36.6 89 20 108/71 (83) 91 Room Air 11/04/17 12:00 Room Air 11/04/17 11:30 36.7 91 20 109/72 (84) 93 Room Air 11/04/17 08:00 Room Air 11/04/17 07:30 36.5 87 20 90/57 (68) 97 11/04/17 04:00 95 Nasal Cannula 2.0 11/04/17 04:00 36.6 82 18 101/65 (77) 96 Nasal Cannula 2.0 11/03/17 23:59 95 Nasal Cannula 2.0 11/03/17 23:26 36.6 86 19 113/67 (82) 98 Nasal Cannula 11/03/17 20:00 95 Nasal Cannula 2.0 11/03/17 20:00 36.8 72 18 105/58 (74) 95 Nasal Cannula 2.0 Lab Results: Results Past 24 Hours Test 11/03/17 21:05 11/04/17 06:04 11/04/17 06:05 11/04/17 06:43 Range/Units Bedside Glucose 103 83 70-99 mg/dl White Blood Count 1.97 4.8-10.8 K/uL Red Blood Count 3.06 4.7-6.1 M/uL Hemoglobin 8.5 14.0-18.0 g/dL Hematocrit 26.4 42-52 % Mean Corpuscular Volume 86.3 80-100 fL Mean Corpuscular Hemoglobin 27.8 25-34 pg Mean Corpuscular Hemoglobin Concent 32.2 32-36 g/dl Platelet Count 57 130-400 K/uL Mean Platelet Volume 10.3 7.4-10.4 fL Neutrophils (%) (Auto) 64.0 % Lymphocytes (%) (Auto) 19.3 % Monocytes (%) (Auto) 11.2 % Eosinophils (%) (Auto) 0.5 % Basophils (%) (Auto) 2.0 % Neutrophils # (Auto) 1.26 1.4-6.5 K/uL Lymphocytes # (Auto) 0.38 1.2-3.4 K/uL Monocytes # (Auto) 0.22 0.11-0.59 K/uL Eosinophils # (Auto) 0.01 0-0.5 K/uL Basophils # (Auto) 0.04 0-0.2 K/uL RDW Standard Deviation 46.3 36.4-46.3 fL RDW Coefficient of Variation 14.7 11.5-14.5 % Immature Granulocyte % (Auto) 3.0 % Immature Granulocyte # (Auto) 0.06 0.00-0.02 K/uL Toxic Granulation 3+ Giant Platelets 2+ Ovalocytes 1+ Sodium Level 131 136-145 mmol/L Potassium Level 3.9 3.5-5.1 mmol/L Chloride Level 99 98-107 mmol/L Carbon Dioxide Level 26 21-32 mmol/L Anion Gap 6.0 3-11 mmol/L Blood Urea Nitrogen 13 7-18 mg/dl Creatinine 0.95 0.60-1.40 mg/dl Est Creatinine Clear Calc Drug Dose 105.5 ml/min Estimated GFR () 103.3 Estimated GFR (Non- 89.1 BUN/Creatinine Ratio 13.8 10-20 Random Glucose 81 70-99 mg/dl Calcium Level 8.6 8.5-10.1 mg/dl Magnesium Level 1.5 1.8-2.4 mg/dl Test 11/04/17 10:26 11/04/17 16:17 Range/Units Bedside Glucose 100 91 70-99 mg/dl
[2017-11-04] MEDS: DIGOXIN 0.125 MG TAB PO SCH (17:00)
[2017-11-04] MEDS: MoRPHine SULFATE 4 MG/ML 1 ML CARP\\VIAL IV PRN ×2 (17:41→23:31)
[2017-11-04] MEDS: PRAVASTATIN SOD 40 MG TAB PO SCH (20:58)
[2017-11-05] VITALS (11 sets, daily range): BP systolic 90–115; BP diastolic 59–72; PULSE 69–99; TEMP 36.5–37; O2SAT 90–99
[2017-11-05] MEDS: CLINDAMYCIN IV 600 MG in DEXTROSE 5% 50ML 50 ML IV SCH ×3 (04:26→20:39)
[2017-11-05 06:03] LABS: HEMATOCRIT 28.4 % (42-52); MEAN CELL VOLUME 86.1 fL (80-100); MEAN CORPUSCULAR HEMOGLOBIN 27.9 pg (25-34); MEAN CORPUSCULAR HGB CONC 32.4 g/dl (32-36); WHITE BLOOD COUNT 3.65 K/uL (4.8-10.8)
[2017-11-05 06:21] LABS: MEAN PLATELET VOLUME 10.1 fL (7.4-10.4); PLATELET COUNT 75 K/uL (130-400)
[2017-11-05 06:51] LABS: BUN/CREATININE RATIO 9.7 (10-20); CALCIUM 8.7 mg/dl (8.5-10.1); CREATININE 0.94 mg/dl (0.60-1.40); MAGNESIUM 1.7 mg/dl (1.8-2.4); POTASSIUM 3.7 mmol/L (3.5-5.1)
[2017-11-05 07:00] LABS: COMPLETE YES; DOHLE BODIES 2+; GIANT PLATELETS 1+; LYMPH ABS # 0.28 K/uL (1.2-3.4); LYMPHOCYTE % 7.8 %; NEUTROPHILS % 85.3 %; TOXIC GRANULATION 3+
[2017-11-05] MEDS: INSULIN ASPART 100 UNITS/ML 3 ML PEN SC SCH ×4 (07:00→20:47)
[2017-11-05] MEDS: CHECK FENTANYL PATCH PLACEMENT SCH ×3 (07:45→23:20)
[2017-11-05] MEDS: MoRPHine SULFATE 4 MG/ML 1 ML CARP\\VIAL IV PRN ×3 (07:46→18:01)
[2017-11-05] MEDS: DILTIAZEM HCL 120 MG EXT REL CAP PO SCH ×2 (07:48→09:52)
[2017-11-05] MEDS: FUROSEMIDE INJ 20 MG in SYRINGE 0 ML IV SCH (07:54)
[2017-11-05] MEDS: APIXABAN 2.5 MG TAB PO SCH ×2 (07:55→20:44)
[2017-11-05] MEDS: MULTIVITAMIN TAB PO SCH (07:55)
[2017-11-05] MEDS: LEVOTHYROXINE 112 MCG TAB PO SCH (07:56)
[2017-11-05] MEDS: LACTOBACILLUS ACIDOPHILUS (FLORANEX) TAB PO SCH ×3 (07:56→15:36)
[2017-11-05] MEDS: FENOFIBRATE 145 MG TAB PO SCH (07:57)
[2017-11-05] MEDS: CHOLECALCIFEROL 1000 INTER.UNIT TAB PO SCH (07:57)
[2017-11-05] MEDS: MAGNESIUM OXIDE 400 MG TAB PO SCH ×2 (07:57→20:44)
[2017-11-05] MEDS: FILGRASTIM 480 MCG/1.6 ML VIAL SC SCH (08:08)
--- NOTE | 2017-11-05 09:29 | Hematology/Oncology Prog Note ---
Hematology/Onc Progress Note Date of Service Nov 05, 2017. 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 Medications Medications Administered Medications (Trade) Dose Ordered Sig/Elizabeth Route Start Time Stop Time Status Last Admin Dose Admin Fentanyl Citrate (Fentanyl Inj) 50 mcg NOW STAT IV 10/29/17 09:39 10/29/17 09:43 DC 10/29/17 10:19 50 MCG Ondansetron HCl (Zofran Inj) 4 mg NOW STAT IV 10/29/17 09:39 10/29/17 09:44 DC 10/29/17 10:19 4 MG Albuterol/ Ipratropium (Duoneb) 3 ml NOW STAT INH 10/29/17 09:39 10/29/17 09:44 DC 10/29/17 09:56 3 ML Sodium Chloride 500 ml @ 100 mls/hr Q5H STAT IV 10/29/17 11:18 10/29/17 16:17 DC 10/29/17 12:17 100 MLS/HR Morphine Sulfate (MoRPHine SULFATE INJ) 4 mg Q2HWA PRN IV 10/29/17 16:00 11/12/17 15:59 11/05/17 07:46 4 MG Ondansetron HCl (Zofran Inj) 4 mg Q6H PRN IV 10/29/17 15:00 11/28/17 14:59 11/04/17 14:04 4 MG Furosemide 40 mg/ Syringe 4 ml @ 4 mls/min BID17 IV 10/30/17 09:00 10/30/17 15:45 DC 10/30/17 07:42 4 MLS/MIN Insulin Aspart (novoLOG ASPART) SLIDING SCALE If C... ACHS SC 10/29/17 16:15 11/28/17 16:14 11/04/17 17:03 2 UNITS Diltiazem HCl (TIAzac CAP) 180 mg DAILY PO 10/30/17 09:00 11/03/17 17:02 DC 11/03/17 08:02 180 MG Fenofibrate (Tricor Tab) 145 mg DAILY PO 10/30/17 09:00 11/29/17 08:59 11/05/17 07:57 145 MG Lisinopril (Zestril Tab) 5 mg DAILY PO 10/30/17 09:00 11/29/17 08:59 Future Hold 11/02/17 07:22 5 MG Multivitamins (Multivitamin Tab) 1 tab DAILY PO 10/30/17 09:00 11/29/17 08:59 11/05/17 07:55 1 TAB Cholecalciferol (Vitamin D Tab) 2,000 inter.unit DAILY PO 10/30/17 09:00 11/29/17 08:59 11/05/17 07:57 2,000 INTER.UNIT Apixaban (Eliquis Tab) 5 mg BID PO 10/29/17 21:00 11/28/17 20:59 11/05/17 07:55 5 MG Pravastatin Sodium (Pravachol Tab) 80 mg HS PO 10/29/17 21:00 11/28/17 20:59 11/04/17 20:58 80 MG Levothyroxine Sodium (Synthroid Tab) 112 mcg Q2D@0900 PO 10/30/17 09:00 11/29/17 08:59 11/05/17 07:56 112 MCG Magnesium Oxide (Mag-Ox Tab) 400 mg QAM PO 10/30/17 09:00 11/04/17 07:32 DC 11/03/17 08:01 400 MG Miscellaneous Information (Check Fentanyl Patch Placement) 1 ea QS N/A 10/30/17 00:00 11/29/17 00:00 11/05/17 07:45 1 EA Digoxin (Lanoxin Tab) 0.125 mg DAILY@16 PO 10/30/17 16:00 11/29/17 15:59 11/04/17 17:00 0.125 MG Levofloxacin 750 mg/Prmx 150 ml @ 100 mls/hr Q24H IV 10/30/17 10:00 11/06/17 09:59 11/04/17 11:09 100 MLS/HR Clindamycin Phosphate 600 mg/ Dextrose 54 ml @ 100 mls/hr Q8H IV 10/30/17 12:00 11/06/17 11:59 11/05/17 04:26 100 MLS/HR Fentanyl (Duragesic Patch) 25 mcg Q72H TD 10/30/17 14:00 11/13/17 13:59 11/02/17 13:40 25 MCG Miscellaneous (Fentanyl Patch Remove & Waste) 1 ea Q72H N/A 10/30/17 13:59 11/29/17 13:58 11/02/17 13:26 1 EA Sodium Chloride 1,000 ml @ 80 mls/hr [id number] IV 10/30/17 17:52 11/01/17 13:38 DC 11/01/17 04:10 80 MLS/HR Sodium Chloride 500 ml @ 250 mls/hr TODAY STAT IV 10/30/17 15:54 10/30/17 17:53 DC 10/30/17 16:14 250 MLS/HR Sodium Chloride 250 ml @ 999 mls/hr Q16M IV 10/31/17 12:05 10/31/17 12:20 DC 10/31/17 12:24 999 MLS/HR Lactobacillus Acidophilus (Floranex Tab) 4 tab TIDM PO 11/02/17 11:30 12/02/17 11:29 11/05/17 07:56 4 TAB Filgrastim (Neupogen Sq) 480 mcg DAILY SC 11/03/17 09:00 11/06/17 08:59 11/05/17 08:08 480 MCG Furosemide 20 mg/ Syringe 2 ml @ 4 mls/min DAILY IV 11/04/17 09:00 12/04/17 08:59 11/05/17 07:54 4 MLS/MIN Furosemide 40 mg/ Syringe 4 ml @ 4 mls/min NOW ONCE IV 11/03/17 17:15 11/03/17 17:16 DC 11/03/17 17:39 4 MLS/MIN Magnesium Sulfate 1 gm/Prmx 100 ml @ 100 mls/hr 0800 ONCE IV 11/04/17 08:00 11/04/17 08:59 DC 11/04/17 08:40 100 MLS/HR Magnesium Oxide (Mag-Ox Tab) 400 mg BID PO 11/04/17 09:00 12/04/17 08:59 11/05/17 07:57 400 MG Subjective States he is able to swallow a little bit better. He states he had some cheeseburger last night. Pain seems controlled with the current regimen. Remains afebrile. Review of Systems: Constitutional: Negative for night sweats, or fever Eyes: Negative for event change of vision ENT: Negative for epistaxis, nasal discharge, sore throat, or deafness Cardiovascular: Negative for chest pain, palpitations, dizziness, diaphoresis Respiratory: Negative for new shortness of breath,hemoptysis, or purulent cough Gastrointestinal: Negative for diarrhea, hematemesis, melena, nausea, vomiting , or dyspepsia Integumentary (skin): Negative for rash or jaundice discoloration Genitourinary: Negative for urinary frequency, hematuria, or dysuria Neurological: Negative for weakness, seizure activity, headache, or dizziness Lymphatic/Hematologic: Negative for petechiae, bleeding or new adenopathy Musculoskeletal: Negative for new joint or back pain Allergic/Immunologic: Negative for unusual rash or pruritis. Vital Signs Vital Signs Past 12 Hours Date Time Temp Pulse Resp B/P (MAP) Pulse Ox O2 Delivery O2 Flow Rate FiO2 11/05/17 08:37 36.6 92 12 90/59 93 11/05/17 07:24 36.6 86 19 91/59 (70) 91 Room Air 11/05/17 04:00 Nasal Cannula 2.0 11/05/17 03:35 37.0 91 18 98/62 (74) 95 Room Air 11/04/17 23:59 93 Nasal Cannula 2.0 11/04/17 23:59 36.9 88 18 116/72 (87) 95 Nasal Cannula 2.0 Physical Exam Constitutional: vitals are stable. Eyes: Eyes are DANG EOMI without conjuctival erythema or icterus. ENT: External examination was negative for masses. Neck: Negative for masses or palpable thyromegaly Respiratory: Lung sounds were generally clear bilaterally. Sounds were decreased bilaterally Cardiovascular: Heart was I RRR without significant murmur, gallops aoe rubs Gastrointestinal: No palpable hepatic or splenomegaly. The abdomen was soft with normal bowel sounds. Lymphatic system: there was no palpable peripheral lymphadenopathy Musculoskeletal System: The musculoskeletal system seemed concordant with age. Skin: The skin was negative for jaundice. Neurologic exam: The exam was negative for any focal findings. Deep tendon reflexes were equal and symmetrical. Psychiatric exam: Was essentially negative with normal mood and effect. Laboratory Last 24 Hours Test 11/04/17 10:26 11/04/17 16:17 11/04/17 20:52 11/05/17 05:29 Bedside Glucose 100 mg/dl 91 mg/dl 93 mg/dl White Blood Count 3.65 K/uL Red Blood Count 3.30 M/uL Hemoglobin 9.2 g/dL Hematocrit 28.4 % Mean Corpuscular Volume 86.1 fL Mean Corpuscular Hemoglobin 27.9 pg Mean Corpuscular Hemoglobin Concent 32.4 g/dl Platelet Count 75 K/uL Mean Platelet Volume 10.1 fL RDW Standard Deviation 46.4 fL RDW Coefficient of Variation 14.7 % Neutrophils % (Manual) 85.3 % Lymphocytes % (Manual) 7.8 % Monocytes % (Manual) 2.6 % Promyelocytes % 2.6 % Blast Cells % 1.7 % Neutrophils # (Manual) 3.11 K/uL Total Absolute Neutrophils 3.11 K/uL Lymphocytes # (Manual) 0.28 K/uL Total Absolute Lymphocytes 0.28 K/uL Monocytes # (Manual) 0.09 K/uL Promyelocytes # 0.09 K/uL Blast Cells # 0.06 K/uL Toxic Granulation 3+ Dohle Bodies 2+ Giant Platelets 1+ Sodium Level 134 mmol/L Potassium Level 3.7 mmol/L Chloride Level 98 mmol/L Carbon Dioxide Level 30 mmol/L Anion Gap 5.0 mmol/L Blood Urea Nitrogen 9 mg/dl Creatinine 0.94 mg/dl Est Creatinine Clear Calc Drug Dose 105.8 ml/min Estimated GFR () 104.6 Estimated GFR (Non- 90.3 BUN/Creatinine Ratio 9.7 Random Glucose 71 mg/dl Calcium Level 8.7 mg/dl Magnesium Level 1.7 mg/dl Test 11/05/17 06:32 11/05/17 06:49 Bedside Glucose 67 mg/dl 80 mg/dl Assessment & Plan Small cell lung carcinoma status post carboplatin and AUTHORIZATION NURSE-16. Radiation was on hold for short while because of cytopenias. Those cytopenias secondary to therapy seem to be recovering now. Radiation will resume today. Would hold further Neupogen after today's dose. Clinically appears stable and is encouraging that he is able to swallow better.
[2017-11-05] MEDS: LEVOFLOXACIN / D5W 750 MG in PREMIXED IN D5W 150 ML IV SCH (09:53)
--- NOTE | 2017-11-05 10:50 | Progress Note ---
Internal Med Progress Note Date of Service: Nov 05, 2017. Provider Documentation: SUBJECTIVE: sitting on the chair comfortably cough is better today has some chest pain on and off swallowing soft diet ok afebrile s/p radiation today complains of dutch i left ankle region thinks his gout acting up OBJECTIVE: Vital Signs-as noted below Exam: General-alert and awake and not in distress ENT- Normal hearing Neck-no neck masses Lungs-cta b/l no wheezing or crackles Heart-s1 and s2 heard regular rate and rhythm no murmurs Abdomen-soft BS present non tender no distension Extremities- lower extremity edema present Left ankle medical aspect warm and tender Neuro-alert and awake moves extremities Lab data as noted below. 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 Mediastinal mass compressing left main bronchus and oesophagus. Started on radiation tx today. Also has post obstructive pneumonia since admission. Acute diastolic chf..BP on lower sides.Consulted cardiology to optimize medical management for chf and afib as his BPon lower side.f/u radiation tx and heme/onco recommendations. pancytopenia improving after starting on Neulasta. Pt/Ot when more stable SOB/CP Pt with hx small cell CA with mediastinal mass presents with worsening sob ct chest shows partial occlusion of left main bronchus plan for bronchoscopy with stent placement but currently pulmonary signed off consulted CT surgery for recommendations- thinks bronchial stent may not be need at this time but may need radiation to reduce oesophageal compression consulted rad/oncology- await pancytopenia to improve before initiating radiation- s/p radiation today continue to monitor Acute DIASTOLIC CHF congestion and pleural effusions on imaging studies Was on Lasix IV which was stopped because of hypotension restarted on iv Lasix 20mg daily and monitor consulted cardiology for medication optimization as patinet BP on lower side A-Fib currently rate controlled. Dig level: 0.8 on eliquis on Cardizem and digoxin with hold parameters cutting on back on Cardizem to 120mg daily to bring BP up for iv lasix consulted cardiology as above. will monitor. Hypotension Initially stoped Lasix bp Meds with hold parameters fluid bolus and monitor echo- normal ef asymptomatic still running on low side will monitor post obstructive pneumonia/.pneumonitis? aspiration? started on Levaquin and clindamycin# 7 to continue abx to complete 10 day course Pancytopenia with neutropenia CHEMO INDUCED Pt received chemo last week. WBC: 0.18, was 1.28 on 10/26/17 neutropenic precautions persistent consulted heme/onco- started on Neupogen improving appreciate heme/onco inputs f/u labs Gout? acute pain in left ankle region will give a course of steroids and monitor Dysphagia has some difficult swallowing ct soft neck was unremarkable plan for radiation to reduce oesophageal compression tolerating mechanical soft diet CAD negative troponin. Lipid panel: 10/18/17 - total: 123, LDL: 33, HDL: 48, Tri continue pravastatin stable ARF CKD III Cr: 1.17 on presentation cr 0.95 today will f/u labs DM A1c6.3 on 10/18/17 holding trulicity on NovoLog sliding scale per protocol close monitor HTN on Cardizem with hold parameter lisinopril on hold for low BP HYPOTHYROIDISM TSH: 0.89 -continue levothyroxine SLEEP APNEA Pt reports doesn't tolerate CPAP, has tried in past DVT PROPHYLAXIS -SCD's DISPOSITION monitor in tele-DNR, DNI as per h and p to be determined Vital Signs: Date Time Temp Pulse Resp B/P (MAP) Pulse Ox O2 Delivery O2 Flow Rate FiO2 11/05/17 16:00 90 Room Air 11/05/17 15:43 36.9 85 20 109/66 (80) 90 Room Air 11/05/17 15:35 94 11/05/17 12:00 94 Room Air 11/05/17 11:35 36.5 99 20 100/64 (76) 99 Nasal Cannula 2.0 11/05/17 09:49 92 115/72 (86) 11/05/17 08:37 36.6 92 12 90/59 93 11/05/17 08:00 91 Room Air 11/05/17 07:24 36.6 86 19 91/59 (70) 91 Room Air 11/05/17 04:00 Nasal Cannula 2.0 11/05/17 03:35 37.0 91 18 98/62 (74) 95 Room Air 11/04/17 23:59 93 Nasal Cannula 2.0 11/04/17 23:59 36.9 88 18 116/72 (87) 95 Nasal Cannula 2.0 11/04/17 20:00 93 Nasal Cannula 2.0 Lab Results: Results Past 24 Hours Test 11/04/17 20:52 11/05/17 05:29 11/05/17 06:32 11/05/17 06:49 Range/Units Bedside Glucose 93 67 80 70-99 mg/dl White Blood Count 3.65 4.8-10.8 K/uL Red Blood Count 3.30 4.7-6.1 M/uL Hemoglobin 9.2 14.0-18.0 g/dL Hematocrit 28.4 42-52 % Mean Corpuscular Volume 86.1 80-100 fL Mean Corpuscular Hemoglobin 27.9 25-34 pg Mean Corpuscular Hemoglobin Concent 32.4 32-36 g/dl Platelet Count 75 130-400 K/uL Mean Platelet Volume 10.1 7.4-10.4 fL RDW Standard Deviation 46.4 36.4-46.3 fL RDW Coefficient of Variation 14.7 11.5-14.5 % Neutrophils % (Manual) 85.3 % Lymphocytes % (Manual) 7.8 % Monocytes % (Manual) 2.6 % Promyelocytes % 2.6 % Blast Cells % 1.7 % Neutrophils # (Manual) 3.11 1.4-6.5 K/uL Total Absolute Neutrophils 3.11 1.4-6.5 K/uL Lymphocytes # (Manual) 0.28 1.2-3.4 K/uL Total Absolute Lymphocytes 0.28 1.2-3.4 K/uL Monocytes # (Manual) 0.09 0.11-0.59 K/uL Promyelocytes # 0.09 0-0 K/uL Blast Cells # 0.06 0-0 K/uL Toxic Granulation 3+ Dohle Bodies 2+ Giant Platelets 1+ Sodium Level 134 136-145 mmol/L Potassium Level 3.7 3.5-5.1 mmol/L Chloride Level 98 98-107 mmol/L Carbon Dioxide Level 30 21-32 mmol/L Anion Gap 5.0 3-11 mmol/L Blood Urea Nitrogen 9 7-18 mg/dl Creatinine 0.94 0.60-1.40 mg/dl Est Creatinine Clear Calc Drug Dose 105.8 ml/min Estimated GFR () 104.6 Estimated GFR (Non- 90.3 BUN/Creatinine Ratio 9.7 10-20 Random Glucose 71 70-99 mg/dl Calcium Level 8.7 8.5-10.1 mg/dl Magnesium Level 1.7 1.8-2.4 mg/dl Test 11/05/17 11:14 11/05/17 16:19 Range/Units Bedside Glucose 94 155 70-99 mg/dl
[2017-11-05] MEDS ORDERED: METHYLPREDNISOLONE IV 40 MG in SYRINGE 0 ML IV ONE (11:15)
[2017-11-05] MEDS: FENTANYL PATCH REMOVE & WASTE SCH (13:59)
[2017-11-05] MEDS: FENTANYL 25 MCG/HR TDSY TD SCH (14:00)
--- NOTE | 2017-11-05 15:20 | SURGERY PROGRESS NOTE ---
DATE: 11/05/2017 SUBJECTIVE: Mr. Glasgow was seen today on 11/05/2017. He states he is eating better and really has no difficulty with breathing now. His lungs do sound better. He is scheduled for radiation therapy today. His pain is improved. At this point, I would not consider intervention in either his esophagus or his bronchus. We will continue to follow along.
[2017-11-05] MEDS: DIGOXIN 0.125 MG TAB PO SCH (15:35)
[2017-11-05] MEDS: ONDANSETRON INJ 2 MG/ML 2 ML VIAL IV PRN (16:23)
--- NOTE | 2017-11-05 17:00 | CARDIOLOGY CONSULTATION ---
DATE OF CONSULTATION: 11/05/2017 The patient seen and examined. Chart, medications, telemetry reviewed. REFERRING: Dr. Pacheco. INDICATIONS: Chronic atrial fibrillation with elevated ventricular response rates, mild hypotension. HISTORY OF PRESENT ILLNESS: The patient is a complex 57-year-old male whose past medical history is notable for longstanding and chronic atrial fibrillation, hypertension, small abdominal aortic aneurysm, history of prior coronary artery disease by cardiac catheterization in 2012, treated medically, history of prior renal cell carcinoma status post nephrectomy, obstructive sleep apnea with right ventricular strain, chronic right heart failure secondary to above issues and diastolic dysfunction. He has recently been diagnosed in September 2017 with small cell lung carcinoma and has currently been undergoing multiple therapies including radiation and chemotherapy. He has been admitted with pancytopenia, mild hypotension, usual medications have been held, heart rates have been slightly higher since hospitalization but remain in chronic atrial fibrillation. In the past, he has required significant doses of diuretics to maintain diastolic heart failure control. He is referred now for aid in management. The patient denies any specific complaints today, notes no worsening shortness of breath. Notes no worsening edema. Does have some difficulties with pain with cough and deep inspiration. Notes no dizziness or lightheadedness. Notes no sense of tachypalpitations. He is aware of atrial fibrillation only as a diagnosis, notes its longstanding chronicity. Notes no worsening edema or chronic mild stasis changes. Denies melena, hematochezia, dysuria or hematuria. ALLERGIES: PENICILLIN. MEDICATIONS: Prior to hospitalization were - apixaban 5 mg twice per day, vitamin D supplement 2000 mg per day, dexamethasone 2 mg as directed with tapering dosing, digoxin 0.125 mg p.o. every day, diltiazem 180 mg p.o. every day, Trulicity, fenofibrate 145 mg per day, fentanyl patch, ferrous sulfate 325 mg, furosemide 80 mg twice per day, 2 liters oxygen nasal cannula at bedtime, levothyroxine 112 mcg p.o. every day, lisinopril 5 mg p.o. every day, Mag-Ox 400 mg every other day, metolazone 5 mg p.o. every day p.r.n. worsening edema, multivitamin per day, nitroglycerin sublingually, potassium chloride 20 mEq p.o. every day and pravastatin 80 mg p.o. every day. PAST SURGICAL HISTORY: Notable for prior nephrectomy. FAMILY HISTORY: Noncontributory. SOCIAL HISTORY: The patient is a prior smoker, uses no significant alcoholic beverages. PHYSICAL EXAMINATION: GENERAL: The patient is a chronically ill appearing male, currently in no acute distress. VITAL SIGNS: Heart rate is 99, blood pressure is 100/64, O2 saturation is 99% on 2 liters nasal cannula. HEENT: Normocephalic, atraumatic. NECK: Thin. There is no jugular venous distention. LUNGS: Reveal mildly diminished breath sounds diffusely. No rhonchi, rale or wheeze. CARDIOVASCULAR: Irregularly irregular. There is no S3 gallop. ABDOMEN: Soft, nontender. EXTREMITIES: Reveal chronic stasis changes and mild edema. LABORATORY DATA: Echocardiogram done since admission demonstrated mild left ventricular hypertrophy with preserved LV systolic function, dilated right atrial pressure by IVC measurement and moderate tricuspid insufficiency. LABORATORY STUDIES: White cell count today is 3.6 with initial white cell count of 0.37 on admission, platelet counts 75,000. Sodium is 134, potassium is 3.7, chloride is 98, bicarbonate is 30, BUN is 9, creatinine is 0.94, and glucose is 67. Magnesium level is 1.7. IMAGING DATA: Chest x-ray suggested increase in vasculature markings on study of 7 days prior. IMPRESSION: A 57-year-old male with underlying history of chronic and persistent atrial fibrillation, history of past diastolic and right heart failure, hypertension, hypertensive heart disease, now admitted with complications of treatment for small cell carcinoma with pancytopenia. Medications have been held due to relatively low blood pressures. Heart rates are slightly higher than baseline, but not predominantly significantly so, per patient. RECOMMENDATIONS: Would continue digoxin and diltiazem. The patient has received IV furosemide today, will hold and reassess in a.m. Exam does not suggest significant volume overload, time being. PA and lateral chest x-ray ordered for a.m. He is on antibiotic therapies as well as chronic anticoagulation and lipid-lowering therapies. He has received an additional dose of radiation therapy today and will plan on proceeding with radiation as already ordered. Blood pressures are remained borderline though are improving. Lisinopril has been held, would continue to hold this drug during this admission and likely on discharge.
[2017-11-05] MEDS: PRAVASTATIN SOD 40 MG TAB PO SCH (20:44)
[2017-11-05] MEDS ORDERED: MAGNESIUM OXIDE 400 MG TAB PO SCH (21:00)
[2017-11-06] VITALS (7 sets, daily range): BP systolic 94–121; BP diastolic 57–76; PULSE 61–77; TEMP 36.4–36.7; O2SAT 91–98
[2017-11-06] MEDS: ZOLPIDEM TARTRATE 5 MG TAB PO PRN ×2 (00:28→23:16)
[2017-11-06] MEDS: CLINDAMYCIN IV 600 MG in DEXTROSE 5% 50ML 50 ML IV SCH ×3 (04:27→23:16)
[2017-11-06 06:25] LABS: HEMATOCRIT 28.6 % (42-52); MEAN CELL VOLUME 85.4 fL (80-100); MEAN CORPUSCULAR HEMOGLOBIN 28.1 pg (25-34); MEAN CORPUSCULAR HGB CONC 32.9 g/dl (32-36); RED BLOOD COUNT 3.35 M/uL (4.7-6.1); WHITE BLOOD COUNT 7.87 K/uL (4.8-10.8)
[2017-11-06 06:46] LABS: BUN/CREATININE RATIO 11.3 (10-20); CALCIUM 8.8 mg/dl (8.5-10.1); CREATININE 1.1 mg/dl (0.60-1.40); MAGNESIUM 1.7 mg/dl (1.8-2.4); POTASSIUM 4.5 mmol/L (3.5-5.1)
[2017-11-06 06:53] LABS: MEAN PLATELET VOLUME 10.9 fL (7.4-10.4); PLATELET COUNT 98 K/uL (130-400)
[2017-11-06] MEDS: INSULIN ASPART 100 UNITS/ML 3 ML PEN SC SCH ×4 (07:00→20:43)
[2017-11-06 07:30] LABS: COMPLETE YES; DOHLE BODIES 2+; LYMPH ABS # 0.35 K/uL (1.2-3.4); LYMPHOCYTE % 4.5 %; MYELOCYTE % 1.8 %; NEUTROPHILS % 90.1 %; TOXIC GRANULATION 2+
[2017-11-06] MEDS: MoRPHine SULFATE 4 MG/ML 1 ML CARP\\VIAL IV PRN ×3 (07:44→20:46)
[2017-11-06] MEDS: LACTOBACILLUS ACIDOPHILUS (FLORANEX) TAB PO SCH ×3 (07:44→17:33)
[2017-11-06] MEDS: APIXABAN 2.5 MG TAB PO SCH ×2 (07:45→20:42)
[2017-11-06] MEDS: CHECK FENTANYL PATCH PLACEMENT SCH ×3 (07:45→23:07)
[2017-11-06] MEDS: FENOFIBRATE 145 MG TAB PO SCH (07:46)
[2017-11-06] MEDS: MAGNESIUM OXIDE 400 MG TAB PO SCH ×2 (07:47→20:41)
[2017-11-06] MEDS: MULTIVITAMIN TAB PO SCH (07:47)
[2017-11-06] MEDS: DILTIAZEM HCL 120 MG EXT REL CAP PO SCH (07:47)
[2017-11-06] MEDS: CHOLECALCIFEROL 1000 INTER.UNIT TAB PO SCH (07:48)
--- NOTE | 2017-11-06 09:11 | DIAGNOSTIC IMAGING REPORT ---
CHEST 2 VIEWS ROUTINE HISTORY: 57 years-old Male assess chf previoulsy described follow-up study in a patient with congestive heart failure COMPARISON: Portable chest radiograph 10/29/2017 TECHNIQUE: PA and lateral views of the chest FINDINGS: Cardiac silhouette is again mildly enlarged. Atherosclerosis of the aorta. There is no pneumothorax. Small bilateral pleural effusions are noted with minimal pulmonary vascular congestion and patchy bibasilar opacities, left greater than right. There is improved aeration of the bilateral lungs from comparison. Bones of the chest appear grossly intact. IMPRESSION: 1. Cardiomegaly with improved aeration of the bilateral lungs and decreased pulmonary edema. 2. Small bilateral pleural effusions with left greater than right bibasilar opacities suggesting atelectasis. Superimposed pneumonitis would be difficult to exclude. The above report was generated using voice recognition software. It may contain grammatical, syntax or spelling errors. Electronically signed by: Chaitanya Cunha M.D. 11/06/2017 9:10 AM Dictated Date/Time: 11/06/2017 9:07 AM
--- NOTE | 2017-11-06 09:26 | Hematology/Oncology Prog Note ---
Hematology/Onc Progress Note Date of Service Nov 06, 2017. 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 Medications Medications Administered Medications (Trade) Dose Ordered Sig/Elizabeth Route Start Time Stop Time Status Last Admin Dose Admin Fentanyl Citrate (Fentanyl Inj) 50 mcg NOW STAT IV 10/29/17 09:39 10/29/17 09:43 DC 10/29/17 10:19 50 MCG Ondansetron HCl (Zofran Inj) 4 mg NOW STAT IV 10/29/17 09:39 10/29/17 09:44 DC 10/29/17 10:19 4 MG Albuterol/ Ipratropium (Duoneb) 3 ml NOW STAT INH 10/29/17 09:39 10/29/17 09:44 DC 10/29/17 09:56 3 ML Sodium Chloride 500 ml @ 100 mls/hr Q5H STAT IV 10/29/17 11:18 10/29/17 16:17 DC 10/29/17 12:17 100 MLS/HR Morphine Sulfate (MoRPHine SULFATE INJ) 4 mg Q2HWA PRN IV 10/29/17 16:00 11/12/17 15:59 11/06/17 07:44 4 MG Ondansetron HCl (Zofran Inj) 4 mg Q6H PRN IV 10/29/17 15:00 11/28/17 14:59 11/05/17 16:23 4 MG Furosemide 40 mg/ Syringe 4 ml @ 4 mls/min BID17 IV 10/30/17 09:00 10/30/17 15:45 DC 10/30/17 07:42 4 MLS/MIN Insulin Aspart (novoLOG ASPART) SLIDING SCALE If C... ACHS SC 10/29/17 16:15 11/28/17 16:14 11/05/17 20:47 1 UNITS Diltiazem HCl (TIAzac CAP) 180 mg DAILY PO 10/30/17 09:00 11/03/17 17:02 DC 11/03/17 08:02 180 MG Fenofibrate (Tricor Tab) 145 mg DAILY PO 10/30/17 09:00 11/29/17 08:59 11/06/17 07:46 145 MG Lisinopril (Zestril Tab) 5 mg DAILY PO 10/30/17 09:00 11/29/17 08:59 Future Hold 11/02/17 07:22 5 MG Multivitamins (Multivitamin Tab) 1 tab DAILY PO 10/30/17 09:00 11/29/17 08:59 11/06/17 07:47 1 TAB Cholecalciferol (Vitamin D Tab) 2,000 inter.unit DAILY PO 10/30/17 09:00 11/29/17 08:59 11/06/17 07:48 2,000 INTER.UNIT Apixaban (Eliquis Tab) 5 mg BID PO 10/29/17 21:00 11/28/17 20:59 11/06/17 07:45 5 MG Pravastatin Sodium (Pravachol Tab) 80 mg HS PO 10/29/17 21:00 11/28/17 20:59 11/05/17 20:44 80 MG Levothyroxine Sodium (Synthroid Tab) 112 mcg Q2D@0900 PO 10/30/17 09:00 11/29/17 08:59 11/05/17 07:56 112 MCG Magnesium Oxide (Mag-Ox Tab) 400 mg QAM PO 10/30/17 09:00 11/04/17 07:32 DC 11/03/17 08:01 400 MG Miscellaneous Information (Check Fentanyl Patch Placement) 1 ea QS N/A 10/30/17 00:00 11/29/17 00:00 11/06/17 07:45 1 EA Digoxin (Lanoxin Tab) 0.125 mg DAILY@16 PO 10/30/17 16:00 11/29/17 15:59 11/05/17 15:35 0.125 MG Levofloxacin 750 mg/Prmx 150 ml @ 100 mls/hr Q24H IV 10/30/17 10:00 11/06/17 09:59 11/05/17 09:53 100 MLS/HR Clindamycin Phosphate 600 mg/ Dextrose 54 ml @ 100 mls/hr Q8H IV 10/30/17 12:00 11/06/17 11:59 11/06/17 04:27 100 MLS/HR Fentanyl (Duragesic Patch) 25 mcg Q72H TD 10/30/17 14:00 11/13/17 13:59 11/05/17 14:00 25 MCG Miscellaneous (Fentanyl Patch Remove & Waste) 1 ea Q72H N/A 10/30/17 13:59 11/29/17 13:58 11/05/17 13:59 1 EA Sodium Chloride 1,000 ml @ 80 mls/hr [id number] IV 10/30/17 17:52 11/01/17 13:38 DC 11/01/17 04:10 80 MLS/HR Sodium Chloride 500 ml @ 250 mls/hr TODAY STAT IV 10/30/17 15:54 10/30/17 17:53 DC 10/30/17 16:14 250 MLS/HR Sodium Chloride 250 ml @ 999 mls/hr Q16M IV 10/31/17 12:05 10/31/17 12:20 DC 10/31/17 12:24 999 MLS/HR Zolpidem Tartrate (Ambien Tab) 5 mg HSZ PRN PO 11/01/17 18:00 12/01/17 17:59 11/06/17 00:28 5 MG Lactobacillus Acidophilus (Floranex Tab) 4 tab TIDM PO 11/02/17 11:30 12/02/17 11:29 11/06/17 07:44 4 TAB Filgrastim (Neupogen Sq) 480 mcg DAILY SC 11/03/17 09:00 11/06/17 08:59 DC 11/05/17 08:08 480 MCG Diltiazem HCl (TIAzac CAP) 120 mg DAILY PO 11/04/17 09:00 11/29/17 08:59 11/06/17 07:47 120 MG Furosemide 20 mg/ Syringe 2 ml @ 4 mls/min DAILY IV 11/04/17 09:00 12/04/17 08:59 Future Hold 11/05/17 07:54 4 MLS/MIN Furosemide 40 mg/ Syringe 4 ml @ 4 mls/min NOW ONCE IV 11/03/17 17:15 11/03/17 17:16 DC 11/03/17 17:39 4 MLS/MIN Magnesium Sulfate 1 gm/Prmx 100 ml @ 100 mls/hr 0800 ONCE IV 11/04/17 08:00 11/04/17 08:59 DC 11/04/17 08:40 100 MLS/HR Magnesium Oxide (Mag-Ox Tab) 400 mg BID PO 11/04/17 09:00 12/04/17 08:59 11/06/17 07:47 400 MG Methylprednisolone Sodium Succinate 40 mg/Syringe 0.64 ml @ 1.5 mls/min NOW ONCE IV 11/05/17 11:15 11/05/17 11:16 DC 11/05/17 11:38 1.5 MLS/MIN Prednisone (PredniSONE TAB) 20 mg DAILY PO 11/06/17 09:00 12/06/17 08:59 11/06/17 07:47 20 MG Subjective Afebrile and counts have returned to normal. His swallowing he states seems to be a little bit better. Review of Systems: Constitutional: Negative for weight loss, night sweats, or fever Eyes: Negative for event change of vision ENT: Negative for epistaxis, nasal discharge, sore throat, or deafness Cardiovascular: Negative for chest pain, palpitations, dizziness, diaphoresis Respiratory: Negative for new shortness of breath,hemoptysis, or purulent cough Gastrointestinal: Negative for diarrhea, hematemesis, melena, nausea, vomiting , or dyspepsia Integumentary (skin): Negative for rash or jaundice discoloration Genitourinary: Negative for urinary frequency, hematuria, or dysuria Neurological: Negative for weakness, seizure activity, headache, or dizziness Lymphatic/Hematologic: Negative for petechiae, bleeding or new adenopathy Musculoskeletal: Negative for new joint or back pain Allergic/Immunologic: Negative for unusual rash or pruritis. Vital Signs Vital Signs Past 12 Hours Date Time Temp Pulse Resp B/P (MAP) Pulse Ox O2 Delivery O2 Flow Rate FiO2 11/06/17 08:00 95 Nasal Cannula 2.0 11/06/17 07:35 36.4 74 19 100/64 (76) 95 Nasal Cannula 2.0 11/06/17 04:00 Room Air 11/06/17 03:29 36.6 77 15 101/65 (77) 92 Nasal Cannula 2.0 11/06/17 00:01 Room Air 11/05/17 23:53 36.7 79 20 108/64 (79) 93 Room Air Physical Exam Constitutional: vitals are stable. Eyes: Eyes are DANG EOMI without conjuctival erythema or icterus. ENT: External examination was negative for masses. Neck: Negative for masses or palpable thyromegaly Respiratory: Lung sounds were generally clear but decreased bilaterally Cardiovascular: Heart was RRR with occasional ectopic significant murmur, gallops aoe rubs Gastrointestinal: No palpable hepatic or splenomegaly. The abdomen was soft with normal bowel sounds. Lymphatic system: there was no palpable peripheral lymphadenopathy Musculoskeletal System: The musculoskeletal system seemed concordant with age. Skin: The skin was negative for jaundice. Neurologic exam: The exam was negative for any focal findings. Deep tendon reflexes were equal and symmetrical. Psychiatric exam: Was essentially negative with normal mood and effect. Extremities: without significant edema does have some mild dependent edema. Laboratory Last 24 Hours Test 11/05/17 11:14 11/05/17 16:19 11/05/17 20:06 11/06/17 05:47 Bedside Glucose 94 mg/dl 155 mg/dl 186 mg/dl White Blood Count 7.87 K/uL Red Blood Count 3.35 M/uL Hemoglobin 9.4 g/dL Hematocrit 28.6 % Mean Corpuscular Volume 85.4 fL Mean Corpuscular Hemoglobin 28.1 pg Mean Corpuscular Hemoglobin Concent 32.9 g/dl Platelet Count 98 K/uL Mean Platelet Volume 10.9 fL RDW Standard Deviation 45.7 fL RDW Coefficient of Variation 14.5 % Neutrophils % (Manual) 90.1 % Lymphocytes % (Manual) 4.5 % Monocytes % (Manual) 2.7 % Myelocytes % 1.8 % Promyelocytes % 0.9 % Neutrophils # (Manual) 7.09 K/uL Total Absolute Neutrophils 7.09 K/uL Lymphocytes # (Manual) 0.35 K/uL Total Absolute Lymphocytes 0.35 K/uL Monocytes # (Manual) 0.21 K/uL Myelocytes # 0.14 K/uL Promyelocytes # 0.07 K/uL Toxic Granulation 2+ Dohle Bodies 2+ Sodium Level 130 mmol/L Potassium Level 4.5 mmol/L Chloride Level 95 mmol/L Carbon Dioxide Level 29 mmol/L Anion Gap 6.0 mmol/L Blood Urea Nitrogen 12 mg/dl Creatinine 1.10 mg/dl Est Creatinine Clear Calc Drug Dose 90.4 ml/min Estimated GFR () 86.5 Estimated GFR (Non- 74.6 BUN/Creatinine Ratio 11.3 Random Glucose 149 mg/dl Calcium Level 8.8 mg/dl Magnesium Level 1.7 mg/dl Assessment & Plan White count is now acceptable and can stop Neupogen. Platelet count 98,000 hemoglobin 9.4. He is doing well. The next plan course of carboplatin and [employer]- 17 will be early next week -.e. Sunday of next week
--- NOTE | 2017-11-06 10:13 | Cardiology Follow-Up ---
Subjective General Date of Service: Nov 06, 2017. Chief Complaint: Atrial fibrillation Pt evaluation today including: conversation w/ patient, physical exam, chart review, lab review, review of studies, review of inpatient medication list History of Present Illness Patient seen and examined Chart, medications, and telemetry reviewed. + Cough. Stable difficulty getting a deep breath (presents since the lung cancer diagnosis) + Mild peripheral edema. No chest pain or palpitations. Telemetry: Chronic atrial fibrillation. Current rates are in the 70's. Slow ventricular response, down into the 30's, observed while sleeping. November 01, 2017 TTE Interpretation Summary ([facility], Dr. Arevalo): Ejection Fraction = 60-65%. There is mild concentric left ventricular hypertrophy. The right ventricle is mildly dilated. The right ventricular systolic function is normal as assessed by tricuspid annular plane systolic excursion (TAPSE) ( normal >1.5 cm). Aortic valve sclerosis moderate, without significant aortic valvular stenosis. There is moderate tricuspid regurgitation. The estimated systolic PAP is 50mmHg. Dilated inferior vena cava with reduced collapsibility with sniff indicates an elevated right atrial pressure of 15 mmHg There is mild mitral regurgitation. Flattened septum is consistent with RV pressure overload. Allergies Coded Allergies: Penicillins (Verified Allergy, Intermediate, RASH, 07/28/16) PT HAD A RXN AND IT COULD NOT BE RULED OUT IF IT WAS THE PCN Social History Smoking Status: Former Smoker Hx Tobacco Use In Past Year?: No Hx Alcohol Use - Type And Amou: No Hx Substance Use - Type And Am: No Problem List Medical Problems: (1) Anticoagulants,Lt,Current Use Status: Chronic (2) Atrial fibrillation Status: Chronic (3) Bowel obstruction Status: Acute (4) Congestive Heart Failure Nos Status: Chronic (5) Coronary Atherosclerosis Of [place] Coronary Vessel Status: Chronic (6) Diabetes mellitus type 2 Status: Chronic (7) Hyperlipidemia Status: Chronic (8) Hypertensive disorder, systemic arterial Status: Chronic (9) Hypothyroidism Status: Chronic (10) Obstructive Sleep Apnea (Adult) (Pediatric) Status: Chronic (11) Renal insufficiency Status: Chronic (12) Right lumbar radiculitis Status: Acute (13) Small cell lung cancer Permanent Comment: Shortness of breath, weight loss, and difficulty swallowing CT scan 09/20/2017-large mediastinal mass Status post bronchoscopy and biopsies 10/14/2017 Small cell carcinoma Admission and initiation of chemotherapy Initiation of radiation therapy 10/24/2017 has received 3 of 15 fractions. Status: Acute (14) SOB (shortness of breath) Status: Acute (15) Substernal chest pain Status: Acute (16) Upper abdominal pain Status: Acute Physical Exam Vital Signs Last Vital Signs Documentation Date Time Temp Pulse Resp B/P (MAP) Pulse Ox O2 Delivery O2 Flow Rate FiO2 11/06/17 08:00 95 Nasal Cannula 2.0 11/06/17 07:35 36.4 74 19 100/64 (76) 11/01/17 06:35 100 Physical Exam Constitutional: Level of Distress: acutely ill, chronically ill Psychiatric: Mental Status: abnormal affect Orientation: to time, to place, to person Eyes: Pupils: PERRLA Neck: pertinent finding (Normal JVP) Lungs: Auscultation: no wheezing, no rhonchi, deminished air movement, decreased breath sounds, rales/crackles on the right Cardiovascular: Heart Auscultation: no rubs, irregular rate rhythm Abdomen: Bowel Sounds: normal Inspection & Palpation: soft Extremities: no cyanosis, no clubbing, edema, pertinent finding (stasis changes ) Neurologic: Cranial Nerves: grossly intact Assessment and Plan Assessment and Plan Complex 57 year old male admitted with complications of treatment for small cell carcinoma of the lung. Cardiac history is complex and includes chronic atrial fibrillation previously requiring a three drug regimen to control rates, chronic anticoagulation with Eliquis, diastolic and right heart failure requiring significant diuretics previously, hypertension, hypertensive heart disease, and coronary artery disease. Medications were initially held due to hypotension. RECOMMENDATIONS: Hold digoxin given observed bradycardia Hold diltiazem given multifactorial fluid retention, utilizing Toprol XL for rate control Resume oral diuretics with lower dose Torsemide, 10 mg/day starting today. No lisinopril. Continue chronic anticoagulation and lipid-lowering therapies. Maintain continuous telemetry monitoring. Patient seen and examined, chart reviewed. Assessment and plan as above. Will gradually titrate meds in, no volume overlaid currently Darshan Nevarez MD Laboratory Results Last 24 Hours Test 11/05/17 11:14 11/05/17 16:19 11/05/17 20:06 11/06/17 05:47 Bedside Glucose 94 mg/dl 155 mg/dl 186 mg/dl White Blood Count 7.87 K/uL Red Blood Count 3.35 M/uL Hemoglobin 9.4 g/dL Hematocrit 28.6 % Mean Corpuscular Volume 85.4 fL Mean Corpuscular Hemoglobin 28.1 pg Mean Corpuscular Hemoglobin Concent 32.9 g/dl Platelet Count 98 K/uL Mean Platelet Volume 10.9 fL RDW Standard Deviation 45.7 fL RDW Coefficient of Variation 14.5 % Neutrophils % (Manual) 90.1 % Lymphocytes % (Manual) 4.5 % Monocytes % (Manual) 2.7 % Myelocytes % 1.8 % Promyelocytes % 0.9 % Neutrophils # (Manual) 7.09 K/uL Total Absolute Neutrophils 7.09 K/uL Lymphocytes # (Manual) 0.35 K/uL Total Absolute Lymphocytes 0.35 K/uL Monocytes # (Manual) 0.21 K/uL Myelocytes # 0.14 K/uL Promyelocytes # 0.07 K/uL Toxic Granulation 2+ Dohle Bodies 2+ Sodium Level 130 mmol/L Potassium Level 4.5 mmol/L Chloride Level 95 mmol/L Carbon Dioxide Level 29 mmol/L Anion Gap 6.0 mmol/L Blood Urea Nitrogen 12 mg/dl Creatinine 1.10 mg/dl Est Creatinine Clear Calc Drug Dose 90.4 ml/min Estimated GFR () 86.5 Estimated GFR (Non- 74.6 BUN/Creatinine Ratio 11.3 Random Glucose 149 mg/dl Calcium Level 8.8 mg/dl Magnesium Level 1.7 mg/dl Test 11/06/17 06:12 Bedside Glucose 143 mg/dl
[2017-11-06] MEDS: TORSEMIDE 20 MG TAB PO SCH (13:01)
[2017-11-06] MEDS ORDERED: MAGNESIUM SULFATE 1GM / D5W 1 GM in PREMIXED IN D5W 100 ML IV STA (14:47)
[2017-11-06] MEDS: ONDANSETRON INJ 2 MG/ML 2 ML VIAL IV PRN (15:36)
--- NOTE | 2017-11-06 16:17 | Progress Note ---
Internal Med Progress Note Date of Service: Nov 06, 2017. Provider Documentation: Subjective Patient s/p radiation therapy today. denies acute shortness of breath or chest pain OBJECTIVE: Exam: General-alert and awake and not in distress ENT- Normal hearing Neck-no neck masses Lungs- good air entry, no wheezing Heart-s1 and s2 heard regular rate and rhythm no murmurs Abdomen-soft BS present non tender no distension Neuro-alert and awake, moves extremities ASSESSMENT & PLAN: Oncology CT scan 09/20/2017-large mediastinal mass Status post bronchoscopy and biopsies 10/14/2017 Small cell lung CA with mediastinal mass presents with SOB and chest pain. Mediastinal mass compressing left main bronchus and oesophagus. Admission and initiation of chemotherapy Initiation of radiation therapy 10/24/2017 received radiation therapy, recent dose 11/06/17 has been evaluated by pulmonary service and CT surgery but no immediate plan from bronchial stent as patient now on radiation therapy Pancytopenia with neutropenia secondary to chemo and needing Neupogen Oncology recommendations 11/06/17: White count is now acceptable and can stop Neupogen. Platelet count 98,000 hemoglobin 9.4. He is doing well. 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 Sunday of next week Post obstructive pneumonia vs pneumonitis has been on Levaquin and Clindamycin and expected to complete 10 day course on 11/09/17 Dysphagia has some difficult swallowing ct soft neck was unremarkable plan for radiation to reduce oesophageal compression tolerating mechanical soft diet Cardiac history iincludes chronic atrial fibrillation previously requiring a three drug regimen to control rates, chronic anticoagulation with Eliquis, diastolic and right heart failure requiring significant diuretics previously, hypertension, hypertensive heart disease, and coronary artery disease. Medications were initially held due to hypotension. Cardiology RECOMMENDATIONS 11/06/17: "Hold digoxin given observed bradycardia Hold diltiazem given multifactorial fluid retention, utilizing Toprol XL for rate control Resume oral diuretics with lower dose Torsemide, 10 mg/day starting today. No lisinopril. Continue chronic anticoagulation and lipid-lowering therapies. Maintain continuous telemetry monitoring." Acute pain in left ankle region, possible gout on steroids, monitor inflammation Renal, GENE resolved Diabetes A1c6.3 on 10/18/17, holding Trulicity, is on NovoLog sliding scale per protocol HYPOTHYROIDISM TSH: 0.89 -continue levothyroxine SLEEP APNEA Pt reports doesn't tolerate CPAP, has tried in past DVT PROPHYLAXIS -SCD's DISPOSITION monitor in tele-DNR, DNI Vital Signs: Date Time Temp Pulse Resp B/P (MAP) Pulse Ox O2 Delivery O2 Flow Rate FiO2 11/06/17 15:15 36.7 72 18 104/65 (78) 91 Room Air 11/06/17 15:15 Room Air 11/06/17 12:00 Nasal Cannula 2.0 11/06/17 11:46 36.5 63 19 94/57 (69) 92 Room Air 11/06/17 08:00 95 Nasal Cannula 2.0 11/06/17 07:35 36.4 74 19 100/64 (76) 95 Nasal Cannula 2.0 11/06/17 04:00 Room Air 11/06/17 03:29 36.6 77 15 101/65 (77) 92 Nasal Cannula 2.0 11/06/17 00:01 Room Air 11/05/17 23:53 36.7 79 20 108/64 (79) 93 Room Air 11/05/17 20:04 36.7 69 18 101/63 (76) 97 Nasal Cannula 2.0 11/05/17 19:50 Room Air Lab Results: Results Past 24 Hours Test 11/05/17 20:06 11/06/17 05:47 11/06/17 06:12 11/06/17 11:23 Range/Units Bedside Glucose 186 143 153 70-99 mg/dl White Blood Count 7.87 4.8-10.8 K/uL Red Blood Count 3.35 4.7-6.1 M/uL Hemoglobin 9.4 14.0-18.0 g/dL Hematocrit 28.6 42-52 % Mean Corpuscular Volume 85.4 80-100 fL Mean Corpuscular Hemoglobin 28.1 25-34 pg Mean Corpuscular Hemoglobin Concent 32.9 32-36 g/dl Platelet Count 98 130-400 K/uL Mean Platelet Volume 10.9 7.4-10.4 fL RDW Standard Deviation 45.7 36.4-46.3 fL RDW Coefficient of Variation 14.5 11.5-14.5 % Neutrophils % (Manual) 90.1 % Lymphocytes % (Manual) 4.5 % Monocytes % (Manual) 2.7 % Myelocytes % 1.8 % Promyelocytes % 0.9 % Neutrophils # (Manual) 7.09 1.4-6.5 K/uL Total Absolute Neutrophils 7.09 1.4-6.5 K/uL Lymphocytes # (Manual) 0.35 1.2-3.4 K/uL Total Absolute Lymphocytes 0.35 1.2-3.4 K/uL Monocytes # (Manual) 0.21 0.11-0.59 K/uL Myelocytes # 0.14 0-0 K/uL Promyelocytes # 0.07 0-0 K/uL Toxic Granulation 2+ Dohle Bodies 2+ Sodium Level 130 136-145 mmol/L Potassium Level 4.5 3.5-5.1 mmol/L Chloride Level 95 98-107 mmol/L Carbon Dioxide Level 29 21-32 mmol/L Anion Gap 6.0 3-11 mmol/L Blood Urea Nitrogen 12 7-18 mg/dl Creatinine 1.10 0.60-1.40 mg/dl Est Creatinine Clear Calc Drug Dose 90.4 ml/min Estimated GFR () 86.5 Estimated GFR (Non- 74.6 BUN/Creatinine Ratio 11.3 10-20 Random Glucose 149 70-99 mg/dl Calcium Level 8.8 8.5-10.1 mg/dl Magnesium Level 1.7 1.8-2.4 mg/dl Test 11/06/17 16:01 Range/Units Bedside Glucose 229 70-99 mg/dl
[2017-11-06] MEDS: LEVOFLOXACIN / D5W 750 MG in PREMIXED IN D5W 150 ML IV SCH (17:06)
[2017-11-06] MEDS: PRAVASTATIN SOD 40 MG TAB PO SCH (20:42)
[2017-11-07] VITALS (7 sets, daily range): BP systolic 95–129; BP diastolic 60–77; PULSE 73–88; TEMP 35.4–36.7; O2SAT 93–98
[2017-11-07] MEDS: MoRPHine SULFATE 4 MG/ML 1 ML CARP\\VIAL IV PRN ×2 (05:45→10:04)
[2017-11-07 06:27] LABS: HEMATOCRIT 28.2 % (42-52); MEAN CELL VOLUME 86.8 fL (80-100); MEAN CORPUSCULAR HGB CONC 32.3 g/dl (32-36); MEAN PLATELET VOLUME 10.4 fL (7.4-10.4); PLATELET COUNT 115 K/uL (130-400); RED BLOOD COUNT 3.25 M/uL (4.7-6.1); WHITE BLOOD COUNT 7.13 K/uL (4.8-10.8)
[2017-11-07 06:55] LABS: ALB/GLOB RATIO 0.7 (0.9-2); BUN/CREATININE RATIO 19.1 (10-20); CALCIUM 8.8 mg/dl (8.5-10.1); CREATININE 0.96 mg/dl (0.60-1.40); MAGNESIUM 1.8 mg/dl (1.8-2.4); POTASSIUM 4.2 mmol/L (3.5-5.1)
[2017-11-07 07:57] LABS: BASO % 0.8 %; BASO ABS # 0.06 K/uL (0-0.2); COMPLETE YES; GIANT PLATELETS 1+; IG% 5.9 %; LYMPH ABS # 0.64 K/uL (1.2-3.4); MONO % 20.1 %; NEUT % 64.2 %; TOXIC GRANULATION 2+
[2017-11-07] MEDS: CHECK FENTANYL PATCH PLACEMENT SCH ×2 (08:04→16:00)
[2017-11-07] MEDS: CLINDAMYCIN IV 600 MG in DEXTROSE 5% 50ML 50 ML IV SCH ×2 (08:10→17:18)
[2017-11-07] MEDS: LACTOBACILLUS ACIDOPHILUS (FLORANEX) TAB PO SCH ×3 (08:10→17:10)
[2017-11-07] MEDS: LEVOTHYROXINE 112 MCG TAB PO SCH (08:11)
[2017-11-07] MEDS: APIXABAN 2.5 MG TAB PO SCH (08:11)
[2017-11-07] MEDS: FENOFIBRATE 145 MG TAB PO SCH (08:11)
[2017-11-07] MEDS: TORSEMIDE 20 MG TAB PO SCH (08:11)
[2017-11-07] MEDS: MULTIVITAMIN TAB PO SCH (08:11)
[2017-11-07] MEDS: MAGNESIUM OXIDE 400 MG TAB PO SCH (08:11)
[2017-11-07] MEDS: CHOLECALCIFEROL 1000 INTER.UNIT TAB PO SCH (08:12)
[2017-11-07] MEDS: INSULIN ASPART 100 UNITS/ML 3 ML PEN SC SCH ×3 (08:17→17:12)
--- NOTE | 2017-11-07 08:57 | Cardiology Follow-Up ---
Subjective General Date of Service: Nov 07, 2017. Chief Complaint: Atrial fibrillation Pt evaluation today including: conversation w/ patient, physical exam, chart review, lab review, review of studies, review of inpatient medication list History of Present Illness Patient seen and examined. Chart, medications, and telemetry reviewed. + Cough, chest pain aided by PRN morphine, and chronic difficulty getting a deep breath (presents since the lung cancer diagnosis) No palpitations. Peripheral edema has improved. Telemetry: Chronic atrial fibrillation. Current rates are in 80-90 bpm. Intermittent slow ventricular response (into the mid 30's) observed while sleeping. November 01, 2017 TTE Interpretation Summary ([facility], Dr. Arevalo): Ejection Fraction = 60-65%. There is mild concentric left ventricular hypertrophy. The right ventricle is mildly dilated. The right ventricular systolic function is normal as assessed by tricuspid annular plane systolic excursion (TAPSE) ( normal >1.5 cm). Aortic valve sclerosis moderate, without significant aortic valvular stenosis. There is moderate tricuspid regurgitation. The estimated systolic PAP is 50mmHg. Dilated inferior vena cava with reduced collapsibility with sniff indicates an elevated right atrial pressure of 15 mmHg There is mild mitral regurgitation. Flattened septum is consistent with RV pressure overload. Allergies Coded Allergies: Penicillins (Verified Allergy, Intermediate, RASH, 07/28/16) PT HAD A RXN AND IT COULD NOT BE RULED OUT IF IT WAS THE PCN Social History Smoking Status: Former Smoker Hx Tobacco Use In Past Year?: No Hx Alcohol Use - Type And Amou: No Hx Substance Use - Type And Am: No Problem List Medical Problems: (1) Anticoagulants,Lt,Current Use Status: Chronic (2) Atrial fibrillation Status: Chronic (3) Bowel obstruction Status: Acute (4) Congestive Heart Failure Nos Status: Chronic (5) Coronary Atherosclerosis Of [place] Coronary Vessel Status: Chronic (6) Diabetes mellitus type 2 Status: Chronic (7) Hyperlipidemia Status: Chronic (8) Hypertensive disorder, systemic arterial Status: Chronic (9) Hypothyroidism Status: Chronic (10) Obstructive Sleep Apnea (Adult) (Pediatric) Status: Chronic (11) Renal insufficiency Status: Chronic (12) Right lumbar radiculitis Status: Acute (13) Small cell lung cancer Permanent Comment: Shortness of breath, weight loss, and difficulty swallowing CT scan 09/20/2017-large mediastinal mass Status post bronchoscopy and biopsies 10/14/2017 Small cell carcinoma Admission and initiation of chemotherapy Initiation of radiation therapy 10/24/2017 has received 3 of 15 fractions. Status: Acute (14) SOB (shortness of breath) Status: Acute (15) Substernal chest pain Status: Acute (16) Upper abdominal pain Status: Acute Physical Exam Vital Signs Last Vital Signs Documentation Date Time Temp Pulse Resp B/P (MAP) Pulse Ox O2 Delivery O2 Flow Rate FiO2 11/07/17 08:36 Nasal Cannula 2.0 11/07/17 08:09 88 129/77 (94) 11/07/17 07:46 36.4 20 96 11/01/17 06:35 100 Physical Exam Constitutional: Level of Distress: acutely ill, chronically ill Psychiatric: Mental Status: abnormal affect Orientation: to time, to place, to person Eyes: Pupils: PERRLA Neck: pertinent finding (Normal JVP) Lungs: Auscultation: no wheezing, no rhonchi, deminished air movement, decreased breath sounds, rales/crackles on the right Cardiovascular: Heart Auscultation: no rubs, irregular rate rhythm Abdomen: Bowel Sounds: normal Inspection & Palpation: soft Extremities: no cyanosis, no clubbing, edema, pertinent finding (stasis changes ) Neurologic: Cranial Nerves: grossly intact Assessment and Plan Assessment and Plan Complex 57 year old male admitted with complications of treatment for small cell carcinoma of the lung. Cardiac history is complex and includes chronic atrial fibrillation previously requiring a three drug regimen to control rates, chronic anticoagulation with Eliquis, diastolic and right heart failure previously requiring significant diuretics, hypertension, hypertensive heart disease, and coronary artery disease. Medications were initially held due to hypotension. RECOMMENDATIONS: Assess heart rates today on Toprol XL (first dose given this AM), off digoxin and diltiazem Avoid diltiazem if possible given multifactorial fluid retention Continue Torsemide as presently prescribed. Lisinopril discontinued this admission. Continue chronic anticoagulation and statin therapy. Patient seen and examined, no complaints. Had brisk diuresis with torsemide 10 mg po, atrial fibrillation rates controlled. Plan make Toprol dose 25 mg, Torsemide 10mg 3 days per week F/U with Dr Fatima, cardiology [place] Darshan Nevarez MD Laboratory Results Last 24 Hours Test 11/06/17 11:23 11/06/17 16:01 11/06/17 19:54 11/07/17 05:19 Bedside Glucose 153 mg/dl 229 mg/dl 195 mg/dl White Blood Count 7.13 K/uL Red Blood Count 3.25 M/uL Hemoglobin 9.1 g/dL Hematocrit 28.2 % Mean Corpuscular Volume 86.8 fL Mean Corpuscular Hemoglobin 28.0 pg Mean Corpuscular Hemoglobin Concent 32.3 g/dl Platelet Count 115 K/uL Mean Platelet Volume 10.4 fL Neutrophils (%) (Auto) 64.2 % Lymphocytes (%) (Auto) 9.0 % Monocytes (%) (Auto) 20.1 % Eosinophils (%) (Auto) 0.0 % Basophils (%) (Auto) 0.8 % Neutrophils # (Auto) 4.58 K/uL Lymphocytes # (Auto) 0.64 K/uL Monocytes # (Auto) 1.43 K/uL Eosinophils # (Auto) 0.00 K/uL Basophils # (Auto) 0.06 K/uL RDW Standard Deviation 47.1 fL RDW Coefficient of Variation 14.8 % Immature Granulocyte % (Auto) 5.9 % Immature Granulocyte # (Auto) 0.42 K/uL Nucleated RBC Absolute Count (auto) 0.03 K/uL Nucleated Red Blood Cells % 0.4 % Toxic Granulation 2+ Giant Platelets 1+ Sodium Level 134 mmol/L Potassium Level 4.2 mmol/L Chloride Level 97 mmol/L Carbon Dioxide Level 30 mmol/L Anion Gap 7.0 mmol/L Blood Urea Nitrogen 18 mg/dl Creatinine 0.96 mg/dl Est Creatinine Clear Calc Drug Dose 104.0 ml/min Estimated GFR () 102.0 Estimated GFR (Non- 88.0 BUN/Creatinine Ratio 19.1 Random Glucose 119 mg/dl Calcium Level 8.8 mg/dl Magnesium Level 1.8 mg/dl Total Bilirubin 0.3 mg/dl Aspartate Amino Transf (AST/SGOT) 20 U/L Alanine Aminotransferase (ALT/SGPT) 17 U/L Alkaline Phosphatase 58 U/L Total Protein 5.7 gm/dl Albumin 2.4 gm/dl Globulin 3.3 gm/dl Albumin/Globulin Ratio 0.7 Test 11/07/17 06:11 Bedside Glucose 121 mg/dl
[2017-11-07] MEDS ORDERED: LEVOTHYROXINE SODIUM IV SCH (09:00)
[2017-11-07] MEDS ORDERED: METOPROLOL SUCC 50MG EXT REL TAB PO SCH (09:00)
--- NOTE | 2017-11-07 16:08 | Progress Note ---
Internal Med Progress Note Date of Service: Nov 07, 2017. Provider Documentation: Subjective Patient s/p radiation therapy again today. denies acute shortness of breath or chest pain OBJECTIVE: Exam: General-alert and awake and not in distress ENT- Normal hearing Neck-no neck masses Lungs- good air entry, no wheezing Heart-s1 and s2 heard regular rate and rhythm no murmurs Abdomen-soft BS present non tender no distension Extremities: Leg edema bilaterally Neuro-alert and awake, moves extremities ASSESSMENT & PLAN: Oncology CT scan 09/20/2017-large mediastinal mass Status post bronchoscopy and biopsies 10/14/2017 Small cell lung CA with mediastinal mass presents with SOB and chest pain. Mediastinal mass compressing left main bronchus and oesophagus. Admission and initiation of chemotherapy Initiation of radiation therapy 10/24/2017 received radiation therapy, recent dose 11/07/17 has been evaluated by pulmonary service and CT surgery but no immediate plan from bronchial stent as patient now on radiation therapy Pancytopenia with neutropenia secondary to chemo and needing Neupogen Oncology recommendations 11/06/17: White count is now acceptable and can stop Neupogen. Platelet count 98,000 hemoglobin 9.4. He is doing well. 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 Sunday of next week Post obstructive pneumonia vs pneumonitis has been on Levaquin and Clindamycin and expected to complete 10 day course on 11/09/17 Dysphagia has some difficult swallowing ct soft neck was unremarkable plan for radiation to reduce oesophageal compression tolerating mechanical soft diet Cardiac history iincludes chronic atrial fibrillation previously requiring a three drug regimen to control rates, chronic anticoagulation with Eliquis, diastolic and right heart failure requiring significant diuretics previously, hypertension, hypertensive heart disease, and coronary artery disease. Medications were initially held due to hypotension. Cardiology RECOMMENDATIONS 11/07/17: "Assess heart rates today on Toprol XL (first dose given this AM), off digoxin and diltiazem Avoid diltiazem if possible given multifactorial fluid retention Continue Torsemide as presently prescribed. Lisinopril discontinued this admission. Continue chronic anticoagulation and statin therapy. Patient seen and examined, no complaints. Had brisk diuresis with torsemide 10 mg po, atrial fibrillation rates controlled. Plan make Toprol dose 25 mg, Torsemide 10mg 3 days per week F/U with Dr Fatima, cardiology [place]" Acute pain in left ankle region, possible gout Bilateral Leg edema: Ultrasound lower extremities: No sonographic evidence of deep venous thrombosis within the right or left lower extremity, complex right Reese's cyst measures up to 6.5 cm Renal, GENE resolved Diabetes, continue home medications of Trulicity Hypothyroidism, continue levothyroxine Discharge to home with follow up to primary care medical doctor (patient to make own appointment, follow up with Dr. Fatima's cardiology clinic to see his colleague Diane Issa on 11/28/2017 8:00 AM at [facility]), patient will be called by oncology and radiation oncology for outpatient chemotherapy and radiation therapy treatments next week. If there are any concerns with appointments please called the [facility] appointment line or [facility] appointment line [phone] Vital Signs: Date Time Temp Pulse Resp B/P (MAP) Pulse Ox O2 Delivery O2 Flow Rate FiO2 11/07/17 16:00 Nasal Cannula 2.0 11/07/17 15:45 36.7 87 20 112/69 (83) 98 Nasal Cannula 2.0 11/07/17 12:33 Nasal Cannula 2.0 11/07/17 10:57 36.5 83 20 95/60 (72) 94 Nasal Cannula 2.0 11/07/17 08:36 Nasal Cannula 2.0 11/07/17 08:09 88 129/77 (94) 11/07/17 07:46 36.4 82 20 116/73 (87) 96 Room Air 11/07/17 05:45 36.6 11/07/17 04:40 Nasal Cannula 2.0 11/07/17 04:24 35.4 73 20 119/71 (87) 93 Nasal Cannula 2.0 11/06/17 23:20 36.4 61 17 121/76 (91) 96 Nasal Cannula 2.0 11/06/17 23:15 Nasal Cannula 11/06/17 19:15 Room Air 11/06/17 18:56 36.7 73 18 108/67 (81) 98 Nasal Cannula 2.0 Lab Results: Results Past 24 Hours Test 11/06/17 19:54 11/07/17 05:19 11/07/17 06:11 11/07/17 11:37 Range/Units Bedside Glucose 195 121 134 70-99 mg/dl White Blood Count 7.13 4.8-10.8 K/uL Red Blood Count 3.25 4.7-6.1 M/uL Hemoglobin 9.1 14.0-18.0 g/dL Hematocrit 28.2 42-52 % Mean Corpuscular Volume 86.8 80-100 fL Mean Corpuscular Hemoglobin 28.0 25-34 pg Mean Corpuscular Hemoglobin Concent 32.3 32-36 g/dl Platelet Count 115 130-400 K/uL Mean Platelet Volume 10.4 7.4-10.4 fL Neutrophils (%) (Auto) 64.2 % Lymphocytes (%) (Auto) 9.0 % Monocytes (%) (Auto) 20.1 % Eosinophils (%) (Auto) 0.0 % Basophils (%) (Auto) 0.8 % Neutrophils # (Auto) 4.58 1.4-6.5 K/uL Lymphocytes # (Auto) 0.64 1.2-3.4 K/uL Monocytes # (Auto) 1.43 0.11-0.59 K/uL Eosinophils # (Auto) 0.00 0-0.5 K/uL Basophils # (Auto) 0.06 0-0.2 K/uL RDW Standard Deviation 47.1 36.4-46.3 fL RDW Coefficient of Variation 14.8 11.5-14.5 % Immature Granulocyte % (Auto) 5.9 % Immature Granulocyte # (Auto) 0.42 0.00-0.02 K/uL Nucleated RBC Absolute Count (auto) 0.03 0-0 K/uL Nucleated Red Blood Cells % 0.4 % Toxic Granulation 2+ Giant Platelets 1+ Sodium Level 134 136-145 mmol/L Potassium Level 4.2 3.5-5.1 mmol/L Chloride Level 97 98-107 mmol/L Carbon Dioxide Level 30 21-32 mmol/L Anion Gap 7.0 3-11 mmol/L Blood Urea Nitrogen 18 7-18 mg/dl Creatinine 0.96 0.60-1.40 mg/dl Est Creatinine Clear Calc Drug Dose 104.0 ml/min Estimated GFR () 102.0 Estimated GFR (Non- 88.0 BUN/Creatinine Ratio 19.1 10-20 Random Glucose 119 70-99 mg/dl Calcium Level 8.8 8.5-10.1 mg/dl Magnesium Level 1.8 1.8-2.4 mg/dl Total Bilirubin 0.3 0.2-1 mg/dl Aspartate Amino Transf (AST/SGOT) 20 15-37 U/L Alanine Aminotransferase (ALT/SGPT) 17 12-78 U/L Alkaline Phosphatase 58 45-117 U/L Total Protein 5.7 6.4-8.2 gm/dl Albumin 2.4 3.4-5.0 gm/dl Globulin 3.3 2.5-4.0 gm/dl Albumin/Globulin Ratio 0.7 0.9-2
[2017-11-07] MEDS ORDERED: TPRSR25 PO (16:28)
[2017-11-07] MEDS ORDERED: DMD20 PO (16:28)
[2017-11-07] MEDS ORDERED: LVQ750 OR (16:47)
--- NOTE | 2017-11-07 16:48 | DIAGNOSTIC IMAGING REPORT ---
BILATERAL LOWER EXTREMITY VENOUS DOPPLER HISTORY: Acute swelling of the lower extremities rule out DVT COMPARISON STUDY: Duplex venous Doppler study 05/05/2012. FINDINGS: There is normal compressibility, flow, and augmentation within the bilateral lower extremity deep venous systems. Within the right popliteal fossa there is a complex linear hypoechoic structure, 6.5 x 1.1 x 2.0 cm without internal vascularity. IMPRESSION: 1. No sonographic evidence of deep venous thrombosis within the right or left lower extremity. 2. Complex right Reese's cyst measures up to 6.5 cm. Electronically signed by: Chaitanya Cunha M.D. 11/07/2017 4:46 PM Dictated Date/Time: 11/07/2017 4:45 PM
[2017-11-07] MEDS ORDERED: CLIN300C2 PO (16:52)
--- NOTE | 2017-11-07 17:24 | Discharge Instructions ---
Discharge Instructions Date of Service Nov 07, 2017. Admission Reason for Admission: Dyspnea Discharge Discharge Diagnosis / Problem: small cell lung cancer, pneumonia, chronic atrial fibrillation Discharge Goals Goal(s): Improve function, Improve disease control Activity Recommendations Activity Limitations: per Instructions/Follow-up section Driving or Machine Use: no limitations . Instructions / Follow-Up Instructions / Follow-Up Oncology CT scan 09/20/2017-large mediastinal mass Status post bronchoscopy and biopsies 10/14/2017 Small cell lung CA with mediastinal mass presents with SOB and chest pain. Mediastinal mass compressing left main bronchus and oesophagus. Admission and initiation of chemotherapy Initiation of radiation therapy 10/24/2017 received radiation therapy, recent dose 11/07/17 has been evaluated by pulmonary service and CT surgery but no immediate plan from bronchial stent as patient now on radiation therapy Pancytopenia with neutropenia secondary to chemo and needing Neupogen Oncology recommendations 11/06/17: White count is now acceptable and can stop Neupogen. Platelet count 98,000 hemoglobin 9.4. He is doing well. The next plan course of carboplatin and SIGNAL MANAGER-16 will be early next week -.e. Sunday of next week Post obstructive pneumonia vs pneumonitis has been on Levaquin and Clindamycin and expected to complete 10 day course on 11/09/17 Dysphagia has some difficult swallowing ct soft neck was unremarkable plan for radiation to reduce oesophageal compression tolerating mechanical soft diet Cardiac history includes chronic atrial fibrillation previously requiring a three drug regimen to control rates, chronic anticoagulation with Eliquis, diastolic and right heart failure requiring significant diuretics previously, hypertension, hypertensive heart disease, and coronary artery disease. Medications were initially held due to hypotension. Cardiology RECOMMENDATIONS 11/07/17: "Assess heart rates today on Toprol XL (first dose given this AM), off digoxin and diltiazem Avoid diltiazem if possible given multifactorial fluid retention Continue Torsemide as presently prescribed. Lisinopril discontinued this admission. Continue chronic anticoagulation and statin therapy. Patient seen and examined, no complaints. Had brisk diuresis with torsemide 10 mg po, atrial fibrillation rates controlled. Plan make Toprol dose 25 mg, Torsemide 10mg 3 days per week F/U with Dr Fatima, cardiology [place]" Acute pain in left ankle region, possible gout Bilateral Leg edema: Ultrasound lower extremities: No sonographic evidence of deep venous thrombosis within the right or left lower extremity, complex right Reese's cyst measures up to 6.5 cm Renal, GENE resolved Diabetes, continue home medications of Trulicity Hypothyroidism, continue levothyroxine Discharge to home with follow up to primary care medical doctor (patient to make own appointment, follow up with Dr. Fatima's cardiology clinic to see his colleague Diane Issa on 11/28/2017 8:00 AM at [facility]), patient will be called by oncology and radiation oncology for outpatient chemotherapy and radiation therapy treatments next week. If there are any concerns with appointments please called the [facility] appointment line or [facility] appointment line [phone] Current Hospital Diet Patient's current hospital diet: Diabetes Type 2 Diet Discharge Diet Recommended Diet: Diabetes Type 2 Diet Pending Studies Studies pending at discharge: no Laboratory Results 11/07/17 05:19 Red Blood Count 3.25, Mean Corpuscular Volume 86.8, Mean Corpuscular Hemoglobin 28.0, Mean Corpuscular Hemoglobin Concent 32.3, Mean Platelet Volume 10.4, Neutrophils (%) (Auto) 64.2, Lymphocytes (%) (Auto) 9.0, Monocytes (%) (Auto) 20.1, Eosinophils (%) (Auto) 0.0, Basophils (%) (Auto) 0.8, Neutrophils # (Auto ) 4.58, Lymphocytes # (Auto) 0.64, Monocytes # (Auto) 1.43, Eosinophils # (Auto ) 0.00, Basophils # (Auto) 0.06 11/07/17 05:19 Test 10/29/17 09:40 10/29/17 10:39 10/29/17 15:54 10/29/17 21:06 Direct Bilirubin 0.4 mg/dl (0-0.2) Pro-B-Type Natriuretic Peptide 973 pg/ml (0-900) Lipase 132 U/L (73-393) Prothrombin Time 12.2 SECONDS (9.0-12.0) Prothromb Time International Ratio 1.2 (0.9-1.1) Activated Partial Thromboplast Time 34.9 SECONDS (21.0-31.0) Partial Thromboplastin Ratio 1.3 Thyroid Stimulating Hormone (TSH) 0.899 uIu/ml (0.300-4.500) Digoxin Level 0.8 ng/ml (0.8-2.0) Total Creatine Kinase 38 U/L (39-308) Creatine Kinase MB 1.4 ng/ml (0.5-3.6) Creatine Kinase MB Ratio 3.7 (0-3.0) Troponin I < 0.015 ng/ml (0-0.045) Test 10/31/17 05:47 11/04/17 06:04 11/05/17 05:29 11/06/17 05:47 Blood Smear Review Platelet Estimate DECREASED Ovalocytes 1+ Blast Cells % 1.7 % Blast Cells # 0.06 K/uL (0-0) Neutrophils % (Manual) 90.1 % Lymphocytes % (Manual) 4.5 % Monocytes % (Manual) 2.7 % Myelocytes % 1.8 % Promyelocytes % 0.9 % Neutrophils # (Manual) 7.09 K/uL (1.4-6.5) Total Absolute Neutrophils 7.09 K/uL (1.4-6.5) Lymphocytes # (Manual) 0.35 K/uL (1.2-3.4) Total Absolute Lymphocytes 0.35 K/uL (1.2-3.4) Monocytes # (Manual) 0.21 K/uL (0.11-0.59) Myelocytes # 0.14 K/uL (0-0) Promyelocytes # 0.07 K/uL (0-0) Dohle Bodies 2+ Test 11/07/17 05:19 11/07/17 11:37 White Blood Count 7.13 K/uL (4.8-10.8) Red Blood Count 3.25 M/uL (4.7-6.1) Hemoglobin 9.1 g/dL (14.0-18.0) Hematocrit 28.2 % (42-52) Mean Corpuscular Volume 86.8 fL (80-100) Mean Corpuscular Hemoglobin 28.0 pg (25-34) Mean Corpuscular Hemoglobin Concent 32.3 g/dl (32-36) Platelet Count 115 K/uL (130-400) Mean Platelet Volume 10.4 fL (7.4-10.4) Neutrophils (%) (Auto) 64.2 % Lymphocytes (%) (Auto) 9.0 % Monocytes (%) (Auto) 20.1 % Eosinophils (%) (Auto) 0.0 % Basophils (%) (Auto) 0.8 % Neutrophils # (Auto) 4.58 K/uL (1.4-6.5) Lymphocytes # (Auto) 0.64 K/uL (1.2-3.4) Monocytes # (Auto) 1.43 K/uL (0.11-0.59) Eosinophils # (Auto) 0.00 K/uL (0-0.5) Basophils # (Auto) 0.06 K/uL (0-0.2) RDW Standard Deviation 47.1 fL (36.4-46.3) RDW Coefficient of Variation 14.8 % (11.5-14.5) Immature Granulocyte % (Auto) 5.9 % Immature Granulocyte # (Auto) 0.42 K/uL (0.00-0.02) Nucleated RBC Absolute Count (auto) 0.03 K/uL (0-0) Nucleated Red Blood Cells % 0.4 % Toxic Granulation 2+ Giant Platelets 1+ Anion Gap 7.0 mmol/L (3-11) Est Creatinine Clear Calc Drug Dose 104.0 ml/min Estimated GFR () 102.0 Estimated GFR (Non- 88.0 BUN/Creatinine Ratio 19.1 (10-20) Calcium Level 8.8 mg/dl (8.5-10.1) Magnesium Level 1.8 mg/dl (1.8-2.4) Total Bilirubin 0.3 mg/dl (0.2-1) Aspartate Amino Transf (AST/SGOT) 20 U/L (15-37) Alanine Aminotransferase (ALT/SGPT) 17 U/L (12-78) Alkaline Phosphatase 58 U/L (45-117) Total Protein 5.7 gm/dl (6.4-8.2) Albumin 2.4 gm/dl (3.4-5.0) Globulin 3.3 gm/dl (2.5-4.0) Albumin/Globulin Ratio 0.7 (0.9-2) Bedside Glucose 134 mg/dl (70-99) Hemoglobin A1c Test 10/18/17 06:43 Range/Units Estimated Average Glucose 134 mg/dl Hemoglobin A1c 6.3 H 4.5-5.6 % Lipid Panel Test 10/18/17 06:43 10/23/17 05:29 Range/Units Triglycerides Level 210 H 198 H 0-150 mg/dl Cholesterol Level 123 0-200 mg/dl HDL Cholesterol 48 mg/dl Cholesterol/HDL Ratio 2.6 LDL Cholesterol, Calculated 33 mg/dl Medical Emergencies . Who to Call and When: Medical Emergencies: If at any time you feel your situation is an emergency, please call 911 immediately. . Non-Emergent Contact Non-Emergency issues call your: Primary Care Provider, Seasonal Greenery Bundler, Oncologist . . "Provider Documentation" section prepared by Mynor Black. . VTE Core Measure Inpt VTE Proph given/why not?: Other Anticoagulation (apixban), SCD's
[2017-11-07] MEDS: LEVOFLOXACIN / D5W 750 MG in PREMIXED IN D5W 150 ML IV SCH (17:51)
--- NOTE | 2017-11-07 18:47 | Discharge Summary ---
Discharge Summary Date of Service Nov 07, 2017. Discharge Summary Admission Date: Oct 29, 2017 at 14:03 Discharge Date: Nov 07, 2017 Discharge Disposition: Home Principal Diagnosis: Small cell lung CA with mediastinal mass presents with SOB and chest pain. Radiation Therapy Post obstructive pneumonia vs pneumonitis Dysphagia chronic atrial fibrillation diastolic and right heart failure Bilateral Leg edema: Renal, GENE resolved Medication Reconciliation New Medications: Clindamycin Hcl (Cleocin) 300 Mg Cap 600 MG PO TID for 2 Days, #12 CAP Levofloxacin (Levofloxacin) 750 Mg Tab 1 TAB OR DAILY for 2 Days, #2 TAB Metoprolol Succinate (Metoprolol Succinate ER) 25 Mg Tabcr 25 MG PO QAM for 30 Days, #30 Torsemide (Torsemide) 20 Mg Tab 10 MG PO QAM for 12 Days, #12 TAB Take 1 tablet daily every Sunday, , Sunday Continued Medications: Apixaban (Eliquis) 5 Mg Tab 5 MG PO BID, TAB Cholecalciferol (Vitamin D3 Super Strength) 2,000 Unit Tab 2000 INTER.UNIT PO DAILY Cyclobenzaprine HCl (Cyclobenzaprine HCl) 10 Mg Tab 10 MG PO HS PRN for Muscle Spasms Dexamethasone (Dexamethasone) 1 Mg Tab 2 MG PO UD for 10 Days, #15 TAB 1 po twice daily for 5 days and then 1 po daily for 5 days Dulaglutide (Trulicity) 0.75 Mg/0.5 Ml Inj 0.75 MG INJ WK ADMINISTER EVERY SUNDAY Eszopiclone (Eszopiclone) 1 Mg Tab 1 MG PO HS PRN for Sleep Fenofibrate (Fenofibrate) 145 Mg Tab 145 MG PO DAILY Fentanyl (Fentanyl) 25 Mcg Tdsy 25 MCG TD Q3D@0900 for 30 Days, #10 Ferrous Sulfate (Ferrousul) 325 Mg Tab 325 MG PO DAILY Home O2 Therapy (Oxygen) Gas 2 LITERS NA HS Hydrocodone/Acetaminophen 7.5MG/325MG ([place] 7.5MG/325MG) Tab 1 TAB PO Q4-6HRS PRN for Pain for 10 Days, #30 TAB Levothyroxine Sodium (Levothyroxine Sodium) 112 Mcg Tab 112 MCG PO Q2D Lisinopril (Lisinopril) 5 Mg Tab 5 MG PO DAILY Magnesium Oxide (Mg Supplement (Magnesium Oxide) 400 Mg Tab 400 MG PO Q2D Multiple Vitamin (Multivitamin) 1 Tab Tab 1 TAB PO DAILY, TAB Nitroglycerin (Nitrostat) 0.4 Mg/1 Tab Subl 0.4 MG SL UD PRN for Chest Pain for 30 Days, #25 Potassium Ext Rel (Klor-Con) 20 Meq Tabcr 3 TABS PO BID, TAB Pravastatin Sodium (Pravastatin Sodium) 80 Mg Tab 80 MG PO DAILY Discontinued Medications: Digoxin (Digoxin) 0.125 Mg Tab 0.125 MG PO DAILY@16 for 30 Days, #30 TAB Diltiazem Hcl Ext Rel (Tiazac) 180 Mg Capcr 180 MG PO DAILY, CAP Furosemide (Furosemide) 80 Mg Tab 80 MG PO BID Metolazone (Zaroxolyn) 5 Mg Tab 5 MG PO DAILY PRN for Fluid Retention, TAB Admission Information HPI (per Admitting provider): Pt is 57 y/o M with PMH A-fib with failed cardioversion, diastolic CHF, CKD III , hx renal CA s/p nephrectomy, hx small cell lung CA presented to ER with c/o worsening SOB, CP x 2 days. Pt was hospitalized 10/17/17- 10/27/17 for CP, dysphagia. Pt states constant CP mid and upper central chest and worsened with movement, deep inspiration and being supine. Improved with sitting upright and not moving. Tried oxycodone and nitro without much relief. States this pain is higher than it was last admission. Has been wearing O2 NC @ 2L constantly past 2 days. Had chemo last week. Pt states was to have radiation today, however when supine had increased CP, so was sent to ER. Pt states dysphagia has improved from d/c and was able to eat peanut butter sandwich last night. Taking his pills with applesauce. Able to drink liquids. Denies choking. C/O continued spitting up foamy mucous, worse after eating. Chronic cough productive cadena, denies any worsening or changes. Denies increased LE edema. Hx chronic abdominal pain, denies worsening. Was d/c on dexamethasone taper, however pt didn't get from pharmacy yet. Denies fever/chills, diaphoresis, vomiting, diarrhea, constipation, melena, hematochezia, dizziness, syncope, vision changes , palpitations, sore throat, otalgia, rhinorrhea,paresthesias, weakness, rashes , urinary symptoms. In ER afebrile. Worsening leukopenia WBC: 0.18 (was 1.28 3 days ago). Negative troponin. CT angio chest: No aortic dissection or aneurysm identified. Bulky heterogeneous soft tissue attenuating infiltrating mass of the mediastinum suggests conglomerate adenopathy correlating with markedly FDG avid mass seen on comparison PET CT 10/09/2017. This narrows the left mainstem bronchus and inferior left pulmonary vein. EKG: a-fib rate 78, RBBB Physical Exam (per Admitting): General Appearance: + mild distress, + pertinent finding (chronic ill appearance, non-toxic appearance) Head: normocephalic, atraumatic Eyes: normal inspection, PERRL, EOMI, sclerae normal ENT: hearing grossly normal, pharynx normal (mucous membranes moist) Neck: supple, no JVD, trachea midline Respiratory/Chest: chest non-tender, no respiratory distress, no accessory muscle use, + decreased breath sounds (bases bilaterally) Cardiovascular: no murmur, + irregularly irregular Abdomen/GI: normal bowel sounds, non tender, soft, + pertinent finding (+ healed surgical scar) Extremities/Musculoskelatal: no calf tenderness, normal capillary refill, non-tender, + pedal edema (mild bilaterally) Neurologic/Psych: alert, normal mood/affect, oriented x 3 Skin: normal color, warm/dry Hospital Course Oncology CT scan 09/20/2017-large mediastinal mass Status post bronchoscopy and biopsies 10/14/2017 Small cell lung CA with mediastinal mass presents with SOB and chest pain. Mediastinal mass compressing left main bronchus and oesophagus. Admission and initiation of chemotherapy Initiation of radiation therapy 10/24/2017 received radiation therapy, recent dose 11/07/17 has been evaluated by pulmonary service and CT surgery but no immediate plan from bronchial stent as patient now on radiation therapy Pancytopenia with neutropenia secondary to chemo and needing Neupogen Oncology recommendations 11/06/17: White count is now acceptable and can stop Neupogen. Platelet count 98,000 hemoglobin 9.4. He is doing well. The next plan course of carboplatin and ENGINEERING PROGRAM ANALYST-16 will be early next week -.e. Sunday of next week Post obstructive pneumonia vs pneumonitis has been on Levaquin and Clindamycin and expected to complete 10 day course on 11/09/17 Dysphagia has some difficult swallowing ct soft neck was unremarkable plan for radiation to reduce oesophageal compression tolerating mechanical soft diet Cardiac history iincludes chronic atrial fibrillation previously requiring a three drug regimen to control rates, chronic anticoagulation with Eliquis, diastolic and right heart failure requiring significant diuretics previously, hypertension, hypertensive heart disease, and coronary artery disease. Medications were initially held due to hypotension. Cardiology RECOMMENDATIONS 11/07/17: "Assess heart rates today on Toprol XL (first dose given this AM), off digoxin and diltiazem Avoid diltiazem if possible given multifactorial fluid retention Continue Torsemide as presently prescribed. Lisinopril discontinued this admission. Continue chronic anticoagulation and statin therapy. Patient seen and examined, no complaints. Had brisk diuresis with torsemide 10 mg po, atrial fibrillation rates controlled. Plan make Toprol dose 25 mg, Torsemide 10mg 3 days per week F/U with Dr Fatima, cardiology [place]" Acute pain in left ankle region, possible gout Bilateral Leg edema: Ultrasound lower extremities: No sonographic evidence of deep venous thrombosis within the right or left lower extremity, complex right Reese's cyst measures up to 6.5 cm Renal, GENE resolved Diabetes, continue home medications of Trulicity Hypothyroidism, continue levothyroxine Discharge to home with follow up to primary care medical doctor (patient to make own appointment, follow up with Dr. Fatima's cardiology clinic to see his colleague Diane Luis Manuel on 11/28/2017 8:00 AM at [facility]), patient will be called by oncology and radiation oncology for outpatient chemotherapy and radiation therapy treatments next week. If there are any concerns with appointments please called the [facility] appointment line [phone] or [facility] appointment line [phone] Total time spent on discharge = This includes examination of the patient, discharge planning, medication reconciliation, and communication with other providers. Discharge Instructions see above
[2017-11-08] MEDS ORDERED: METOPROLOL SUCC 25MG EXT REL TAB PO SCH (09:00)
== END 2017-11-07 20:00 | disposition home or self-care (01) | DRG 180 ==
LOC: C.EDB 09:15 → C.2T 14:03 → ENRESERV 14:51
PROVIDERS: ADMIT Hospitalist; ATTEND Hospitalist
DX: C34.90 Malignant neoplasm of unspecified part of unspecified bronchus or lung (principal); I50.33 Acute on chronic diastolic (congestive) heart failure; D61.810 Antineoplastic chemotherapy induced pancytopenia; J69.0 Pneumonitis due to inhalation of food and vomit; I50.32 Chronic diastolic (congestive) heart failure; N17.9 Acute kidney failure, unspecified; Z66 Do not resuscitate; I11.0 Hypertensive heart disease with heart failure; E11.9 Type 2 diabetes mellitus without complications; E78.00 Pure hypercholesterolemia, unspecified; J44.9 Chronic obstructive pulmonary disease, unspecified; G47.33 Obstructive sleep apnea (adult) (pediatric); E78.5 Hyperlipidemia, unspecified; E03.9 Hypothyroidism, unspecified; N18.3 Chronic kidney disease, stage 3 (moderate); Z87.891 Personal history of nicotine dependence

== ENCOUNTER 2017-11-24 13:29 | Inpatient (IN) | payer BC ==
[~2017-11-24] VITALS: Ht 177.8 cm; Wt 93.1 kg
[~2017-11-24 13:29] MED LIST changes: -DILT-113 PO; +DMD20 PO; -LNX125 PO; -LSX80 PO; +LVQ750 OR; -METO5TAB25 PO; +TPRSR25 PO
[2017-11-24] MEDS ORDERED: MoRPHine SULFATE 10 MG/ML CARP/VIAL IV STA (14:02)
[2017-11-24] MEDS ORDERED: SODIUM CHLORIDE 0.9% 1000ML 2,000 ML IV STA (14:02)
[2017-11-24] MEDS ORDERED: ONDANSETRON INJ 2 MG/ML 2 ML VIAL IV STA (14:02)
--- NOTE | 2017-11-24 14:20 | DIAGNOSTIC IMAGING REPORT ---
CHEST ONE VIEW PORTABLE CLINICAL HISTORY: 57 years-old Male presenting with can not swallow . TECHNIQUE: Portable upright AP view of the chest was obtained. COMPARISON: 11/06/2017. FINDINGS: Atherosclerosis of the aortic arch. Cardiac silhouette mildly enlarged, unchanged. Mildly low lung volumes. Resolution of previously noted left basilar opacity. Minimal right basilar opacity persists. Resolution of left pleural effusion. Small right pleural effusion persists with no pneumothorax. Osseous structures normal. Upper abdomen normal. IMPRESSION: 1. Persistent minimal right basilar opacity with small right pleural effusion. Resolution of left basilar opacity and left pleural effusion. Electronically signed by: Robert Sheehan M.D. 11/24/2017 2:18 PM Dictated Date/Time: 11/24/2017 2:17 PM
[2017-11-24 14:57] LABS: MEAN CORPUSCULAR HGB CONC 32.6 g/dl (32-36); MEAN PLATELET VOLUME 9.8 fL (7.4-10.4); PLATELET COUNT 46 K/uL (130-400)
[2017-11-24 14:59] LABS: HEMATOCRIT 27.3 % (42-52); HEMOGLOBIN 8.9 g/dL (14.0-18.0); MEAN CELL VOLUME 86.1 fL (80-100); MEAN CORPUSCULAR HEMOGLOBIN 28.1 pg (25-34); RED CELL DISTRIBUTION WIDTH SD 47.2 fL (36.4-46.3); WHITE BLOOD COUNT 0.33 K/uL (4.8-10.8)
[2017-11-24 15:00] LABS: ALBUMIN 3.4 gm/dl (3.4-5.0); ALT/SGPT 17 U/L (12-78); BLOOD UREA NITROGEN 27 mg/dl (7-18); CALCIUM 9.6 mg/dl (8.5-10.1); CARBON DIOXIDE 25 mmol/L (21-32); CREATININE 1.45 mg/dl (0.60-1.40); GLUCOSE 89 mg/dl (70-99); LIPASE 107 U/L (73-393); POTASSIUM 4.7 mmol/L (3.5-5.1); SODIUM 135 mmol/L (136-145)
[2017-11-24 15:05] LABS: ALKALINE PHOSPHATASE 48 U/L (45-117); AST/SGOT 17 U/L (15-37); TOTAL PROTEIN 7.4 gm/dl (6.4-8.2)
--- NOTE | 2017-11-24 15:29 | DIAGNOSTIC IMAGING REPORT ---
ADDENDUM ADDITIONAL FINDINGS: Significant wall thickening of the distal esophagus with adjacent possible loculated fluid along the left lateral aspect (series 3 image 9). Previously this was largely obscured secondary to loculated fluid. ADDITIONAL IMPRESSION: 9. Significant wall thickening of the distal esophagus. This could suggest esophagitis, however, underlying neoplasm is difficult to exclude. The report will be called/faxed according to standard departmental protocol. Electronically signed by: Robert Sheehan M.D. 11/24/2017 6:24 PM Dictated Date/Time: 11/24/2017 6:22 PM ORIGINAL REPORT ABD/PELVIS NO IV OR ORAL CONT CLINICAL HISTORY: 57 years-old Male presenting with abd pain, history of appendectomy, recent nausea and vomiting, history of lung cancer, last chemotherapy 2 weeks ago. TECHNIQUE: Multidetector CT of the abdomen and pelvis was performed without the use of intravenous contrast. IV contrast: None. A dose lowering technique was used consistent with the principles of ALARA (as low as reasonably achievable). COMPARISON: CTA from 10/29/2017. CT DOSE (mGy.cm): The estimated cumulative dose is 624.57 mGy.cm. FINDINGS: Staff Nurse Anesthetist topogram: Scattered surgical clips. Lung bases: Dependent groundglass opacity in the lower lobes, right greater than left. Small loculated right pleural effusion with a prominent subpulmonic component. Hamartoma noted in the azygos esophageal recess. Multichamber enlargement of the heart. Aortic valve, mitral annular, and coronary artery calcification. The intraventricular blood pool is less dense and adjacent myocardium consistent with anemia. Trace left pleural effusion. No pericardial effusion. Liver: Normal morphology. Density consistent with hepatic steatosis. Ill-defined lesion at the right hepatic dome (series 3 image 44). Biliary: Mild biliary ductal prominence likely a reservoir effect in the post cholecystectomy state. Gallbladder surgically absent. Pancreas: Normal noncontrast appearance. Spleen: Normal noncontrast appearance. Adrenal glands: Normal noncontrast appearance. Kidneys and ureters: Postsurgical changes of left nephrectomy. The residual mid to distal left ureter is unremarkable. Normal noncontrast appearance of the right kidney. Punctate nonobstructing calculus at the lower pole. No hydronephrosis. Right ureter normal. Bladder: Normal. Pelvic organs: Prostate and seminal vesicles normal. Bowel: Moderate stool burden throughout normal caliber colon. Chronic postsurgical changes of the small bowel, which is dilated and altered in architecture. Multiple loops of small bowel. Appearance of the anterior peritoneum subjacent to postsurgical change. Peritoneal cavity: No free fluid or intraperitoneal gas. Lymph nodes: No gross lymphadenopathy allowing for noncontrast technique. Vasculature: Aneurysmal dilatation of the infrarenal abdominal aorta, which measures up to 3.8 cm in diameter, unchanged when remeasured at a comparable level. Displacement of intimal calcifications consistent with chronic dissection. Abdominal wall: Extensive postsurgical change of the anterior abdominal wall with surgical material noted and peritoneal thickening. Musculoskeletal: Degenerative changes of the spine. IMPRESSION: 1. Suspicious lesion in the right hepatic dome, which is concerning for a site of metastatic disease. 2. Hepatic steatosis. 3. Chronic postsurgical changes of the small bowel. Small bowel appears adherent to the anterior abdominal wall suggesting adhesions no bowel obstruction is present. 4. Stable appearance of the infrarenal abdominal aortic aneurysm. 5. Post surgical changes of left nephrectomy. 6. Nonobstructing punctate right renal calculus. 7. Loculated right pleural effusion with dependent atelectasis suspected. 8. Anemia. Electronically signed by: Robert Sheehan M.D. 11/24/2017 3:27 PM Dictated Date/Time: 11/24/2017 3:16 PM
[2017-11-24] MEDS ORDERED: OXYC1TAB3 PO (15:43)
[2017-11-24] MEDS ORDERED: ONDA4TAB46 PO (15:43)
[2017-11-24] MEDS ORDERED: LACT1CAP21 PEG (15:43)
[2017-11-24] MEDS ORDERED: ENOXAPARIN 40 MG/0.4 ML SYR SQ SCH (17:00)
[2017-11-24] MEDS ORDERED: HYDROCODONE/ACETAMINOPHEN 7.5/325MG TAB PO PRN (17:15)
[2017-11-24] MEDS ORDERED: ESZOPICLONE 1 MG TAB PO PRN (17:15)
[2017-11-24] MEDS ORDERED: NITROGLYCERIN 0.4 MG SL PER TAB CHARGE SL PRN (17:15)
[2017-11-24] MEDS ORDERED: CYCLOBENZAPRINE HCL 10 MG TAB PO PRN (17:15)
[2017-11-24 17:42] VITALS: BP 105/68; PULSE 114; TEMP 36.5; O2SAT 96; BMI 27.3
[2017-11-24] MEDS ORDERED: FILGRASTIM 480 MCG/1.6 ML VIAL SC ONE (18:30)
[2017-11-24] MEDS: SODIUM CHLORIDE 0.9% 1000ML 1,000 ML IV SCH (19:08)
[2017-11-24] MEDS: ONDANSETRON INJ 2 MG/ML 2 ML VIAL IV PRN (19:47)
[2017-11-24] MEDS: OXYCODONE HCL IR 5 MG TAB (IMMEDIATE RELEASE) PO PRN (19:47)
--- NOTE | 2017-11-24 19:49 | EMERGENCY ROOM VISIT NOTE ---
History Report prepared by Mark: Bernadette Kline Under the Supervision of: Kaylan KraftO. First contact with patient: 13:52 Chief Complaint: VOMITING Stated Complaint: LUNG CANCER PT,UNABLE TO EAT OR DRINK FOR 2 DAYS Nursing Triage Summary: patient states he is [employer] [place] bilateral coclear implants. patient c/o nausea, vomting, unable to keep fluid/foods down. hx small cell lung CA last chemo 2 weeks ago last radiation last patient also c/o throat pain. "I have a hard time swallowing anything." History of Present Illness The patient is a 57 year old male who presents to the Emergency Room with complaints of persistent vomiting that began 3 days ago. The patient states that he has been nauseous, vomiting, and unable to swallow. He states he has abdominal pain, noting he has had similar symptoms in the past but no as severe. Symptoms initially started back in August. The patient states he has small cell lung cancer, noting his last chemo was a week and a half ago and his last radiation was last week. The patient was diagnosed with this cancer in August. The patient notes he has atrial fibrillation and takes Eliquis. Pt denies headache, change in vision, fevers, chest pain, shortness of breath, diarrhea, pain with urination, and melena. He notes the majority of his discomfort is when he initiates swallowing. Source of History: patient Onset: 3 days ago Position: other (global) Quality: other (vomiting) Timing: other (persistent) Associated Symptoms: + nausea, + abdominal pain Review of Systems See HPI for pertinent positives & negatives. A total of 10 systems reviewed and were otherwise negative. Past Medical & Surgical Medical Problems: (1) Abdominal pain (2) Acute on chronic diastolic heart failure (3) GENE (acute kidney injury) (4) GENE (acute kidney injury) (5) Anticoagulants,Lt,Current Use (6) Atrial fibrillation (7) Atrial fibrillation (8) Chemotherapy induced nausea and vomiting (9) CKD (chronic kidney disease), stage III (10) Congestive Heart Failure Nos (11) Coronary Atherosclerosis Of [place] Coronary Vessel (12) Diabetes mellitus type 2 (13) Diastolic heart failure (14) DM type 2 (diabetes mellitus, type 2) (15) Dyspnea (16) Hemoptysis (17) HTN (hypertension) (18) Hyperlipidemia (19) Hypertensive disorder, systemic arterial (20) Hypotension (21) Hypothyroidism (22) Hypothyroidism (23) Neutropenia (24) Obstructive Sleep Apnea (Adult) (Pediatric) (25) possible ileus (26) Renal cell carcinoma (27) Renal insufficiency (28) Renal insufficiency (29) Sleep apnea Surgical Problems: (1) S/p nephrectomy Family History Diabetes mellitus MOTHER FH: CAD (coronary artery disease) FATHER FH: cancer SISTER (possible uterine CA) Stroke FATHER MOTHER Social History Smoking Status: Former Smoker Drug Use: none Marital Status: single Occupation Status: disabled Current/Historical Medications Scheduled Apixaban (Eliquis), 5 MG PO BID Cholecalciferol (Vitamin D3 Super Strength), 2,000 INTER.UNIT PO DAILY Dulaglutide (Trulicity), 0.75 MG INJ WK Fenofibrate (Fenofibrate), 145 MG PO DAILY Ferrous Sulfate (Ferrousul), 325 MG PO DAILY Home O2 Therapy (Oxygen), 2 LITERS NA HS Lactobacillus (Probiotic Acidophilus), 1 CAP PEG BID Levothyroxine Sodium (Levothyroxine Sodium), 112 MCG PO DAILY Lisinopril (Lisinopril), 5 MG PO DAILY Magnesium Oxide (Mg Supplement (Magnesium Oxide), 400 MG PO Q2D Metoprolol Succinate (Metoprolol Succinate ER), 25 MG PO QAM Potassium Ext Rel (Klor-Con), 3 TABS PO BID Pravastatin Sodium (Pravastatin Sodium), 80 MG PO DAILY Torsemide (Torsemide), 10 MG PO QAM Scheduled PRN Cyclobenzaprine HCl (Cyclobenzaprine HCl), 10 MG PO HS PRN for Muscle Spasms Eszopiclone (Eszopiclone), 1 MG PO HS PRN for Sleep Hydrocodone/Acetaminophen 7.5MG/325MG ([place] 7.5MG/325MG), 1 TAB PO Q4-6HRS PRN for Pain Nitroglycerin (Nitrostat), 0.4 MG SL UD PRN for Chest Pain Ondansetron Hcl (Zofran), 4 MG PO q6-8h PRN for Nausea or Vomiting Oxycodone Immediate Rel Tab (Roxicodone Ir), 1-2 TAB PO Q4H-6H PRN for Severe Pain Allergies Coded Allergies: Penicillins (Verified Allergy, Intermediate, RASH, 11/24/17) PT HAD A RXN AND IT COULD NOT BE RULED OUT IF IT WAS THE PCN Physical Exam Vital Signs Date Time Temp Pulse Resp B/P (MAP) Pulse Ox O2 Delivery O2 Flow Rate FiO2 11/24/17 16:33 114 105/68 97 Room Air 11/24/17 15:05 99 21 11/24/17 15:00 93/60 11/24/17 14:59 102 15 11/24/17 14:34 152 11/24/17 14:30 92/58 11/24/17 13:43 36.5 134 24 106/63 97 Room Air Physical Exam GENERAL: Sitting up in bed, alert, ill-appearing, well nourished, mild distress , non-toxic EYE EXAM: normal conjunctiva. OROPHARYNX: Dry mucous membranes. No exudate, no erythema, lips, buccal mucosa, and tongue normal NECK: supple, no nuchal rigidity, no adenopathy, non-tender LUNGS: Clear to auscultation. Normal chest wall mechanics HEART: Tachycardic. no murmurs, S1 normal and S2 normal ABDOMEN: Multiple old abdominal incisions. abdomen soft, non-tender, normo- active bowel sounds, no masses, no rebound or guarding. BACK: Back is symmetrical on inspection and there is no deformity, no midline tenderness, no CVA tenderness. SKIN: no rashes and no bruising UPPER EXTREMITIES: upper extremities are grossly normal. LOWER EXTREMITIES: No pitting edema. NEURO EXAM: Normal sensorium, cranial nerves II-XII grossly intact, normal speech, no gross weakness of arms, no gross weakness of legs. Medical Decision & Procedures ER Provider Diagnostic Interpretation: Radiology results as stated below per my review and the radiologist's interpretation: ABD/PELVIS NO IV OR ORAL CONT CLINICAL HISTORY: 57 years-old Male presenting with abd pain, history of appendectomy, recent nausea and vomiting, history of lung cancer, last chemotherapy 2 weeks ago. TECHNIQUE: Multidetector CT of the abdomen and pelvis was performed without the use of intravenous contrast. IV contrast: None. A dose lowering technique was used consistent with the principles of ALARA (as low as reasonably achievable). COMPARISON: CTA from 10/29/2017. CT DOSE (mGy.cm): The estimated cumulative dose is 624.57 mGy.cm. FINDINGS: Back Tacker topogram: Scattered surgical clips. Lung bases: Dependent groundglass opacity in the lower lobes, right greater than left. Small loculated right pleural effusion with a prominent subpulmonic component. Hamartoma noted in the azygos esophageal recess. Multichamber enlargement of the heart. Aortic valve, mitral annular, and coronary artery calcification. The intraventricular blood pool is less dense and adjacent myocardium consistent with anemia. Trace left pleural effusion. No pericardial effusion. Liver: Normal morphology. Density consistent with hepatic steatosis. Ill-defined lesion at the right hepatic dome (series 3 image 44). Biliary: Mild biliary ductal prominence likely a reservoir effect in the post cholecystectomy state. Gallbladder surgically absent. Pancreas: Normal noncontrast appearance. Spleen: Normal noncontrast appearance. Adrenal glands: Normal noncontrast appearance. Kidneys and ureters: Postsurgical changes of left nephrectomy. The residual mid to distal left ureter is unremarkable. Normal noncontrast appearance of the right kidney. Punctate nonobstructing calculus at the lower pole. No hydronephrosis. Right ureter normal. Bladder: Normal. Pelvic organs: Prostate and seminal vesicles normal. Bowel: Moderate stool burden throughout normal caliber colon. Chronic postsurgical changes of the small bowel, which is dilated and altered in architecture. Multiple loops of small bowel. Appearance of the anterior peritoneum subjacent to postsurgical change. Peritoneal cavity: No free fluid or intraperitoneal gas. Lymph nodes: No gross lymphadenopathy allowing for noncontrast technique. Vasculature: Aneurysmal dilatation of the infrarenal abdominal aorta, which measures up to 3.8 cm in diameter, unchanged when remeasured at a comparable level. Displacement of intimal calcifications consistent with chronic dissection. Abdominal wall: Extensive postsurgical change of the anterior abdominal wall with surgical material noted and peritoneal thickening. Musculoskeletal: Degenerative changes of the spine. IMPRESSION: 1. Suspicious lesion in the right hepatic dome, which is concerning for a site of metastatic disease. 2. Hepatic steatosis. 3. Chronic postsurgical changes of the small bowel. Small bowel appears adherent to the anterior abdominal wall suggesting adhesions no bowel obstruction is present. 4. Stable appearance of the infrarenal abdominal aortic aneurysm. 5. Post surgical changes of left nephrectomy. 6. Nonobstructing punctate right renal calculus. 7. Loculated right pleural effusion with dependent atelectasis suspected. 8. Anemia. Electronically signed by: Robert Sheehan M.D. 11/24/2017 3:27 PM Dictated Date/Time: 11/24/2017 3:16 PM CHEST ONE VIEW PORTABLE CLINICAL HISTORY: 57 years-old Male presenting with can not swallow . TECHNIQUE: Portable upright AP view of the chest was obtained. COMPARISON: 11/06/2017. FINDINGS: Atherosclerosis of the aortic arch. Cardiac silhouette mildly enlarged, unchanged. Mildly low lung volumes. Resolution of previously noted left basilar opacity. Minimal right basilar opacity persists. Resolution of left pleural effusion. Small right pleural effusion persists with no pneumothorax. Osseous structures normal. Upper abdomen normal. IMPRESSION: 1. Persistent minimal right basilar opacity with small right pleural effusion. Resolution of left basilar opacity and left pleural effusion. Electronically signed by: Robert Sheehan M.D. 11/24/2017 2:18 PM Dictated Date/Time: 11/24/2017 2:17 PM Laboratory Results 11/24/17 14:25 11/24/17 14:25 Test 11/24/17 14:25 11/24/17 14:31 Red Blood Count 3.17 M/uL (4.7-6.1) Mean Corpuscular Volume 86.1 fL (80-100) Mean Corpuscular Hemoglobin 28.1 pg (25-34) Mean Corpuscular Hemoglobin Concent 32.6 g/dl (32-36) RDW Standard Deviation 47.2 fL (36.4-46.3) RDW Coefficient of Variation 15.0 % (11.5-14.5) Mean Platelet Volume 9.8 fL (7.4-10.4) Platelet Estimate DECREASED Anion Gap 8.0 mmol/L (3-11) Est Creatinine Clear Calc Drug Dose 58.7 ml/min Estimated GFR () 62.0 Estimated GFR (Non- 53.5 BUN/Creatinine Ratio 18.3 (10-20) Calcium Level 9.6 mg/dl (8.5-10.1) Total Bilirubin 1.3 mg/dl (0.2-1) Direct Bilirubin 0.6 mg/dl (0-0.2) Aspartate Amino Transf (AST/SGOT) 17 U/L (15-37) Alanine Aminotransferase (ALT/SGPT) 17 U/L (12-78) Alkaline Phosphatase 48 U/L (45-117) Troponin I < 0.015 ng/ml (0-0.045) Total Protein 7.4 gm/dl (6.4-8.2) Albumin 3.4 gm/dl (3.4-5.0) Lipase 107 U/L (73-393) Bedside Lactic Acid Venous 1.42 mmol/L (0.90-1.70) Laboratory results per my review. Medications Administered Medications (Trade) Dose Ordered Sig/Elizabeth Route Start Time Stop Time Status Last Admin Dose Admin Sodium Chloride 2,000 ml @ 999 mls/hr Q2H1M STAT IV 11/24/17 14:02 11/24/17 16:07 DC 11/24/17 14:21 999 MLS/HR Ondansetron HCl (Zofran Inj) 4 mg NOW STAT IV 11/24/17 14:02 11/24/17 14:04 DC 11/24/17 14:21 4 MG Morphine Sulfate (MoRPHine SULFATE INJ) 6 mg NOW STAT IV 11/24/17 14:02 11/24/17 14:04 DC 11/24/17 14:22 6 MG ECG Indication: vomiting Rate (beats per minute): 143 Rhythm: atrial fibrillation (with RVR) Findings: RBBB, other (right axis, slight ST elevation inferior and lateral) Change: no significant change (10/31/17) ED Course ED COURSE: Vital signs were reviewed and showed tachycardic rate. The patients medical record was reviewed The above diagnostic studies were performed and reviewed. ED treatments and interventions as stated above. 1356: The patient was evaluated in room C11. A complete history and physical examination was performed. 1402: Ordered Sodium Chloride 2000ml @ 999mls/hr IV, and Zofran Inj 4mg IV, and Morphine sulfate 6mg IV. 1543: I reevaluated the patient. I updated him on the test findings and results. 1550: I reviewed the patient's case with , [facility] will evaluate the patient for further management. Medical Decision Differential diagnosis: Etiologies such as appendicitis, diverticulitis, PUD, biliary pathology, UTI, pancreatitis, obstruction, mesenteric ischemia, aortic pathology, infections, inflammatory bowel disease, renal colic, as well as others were entertained. The patient is a 57 year old male who presents to the ED with complaints of abdominal pain associated with nausea and vomiting. He has been unable to keep anything down for the past 48 hours. He does have small cell lung carcinoma and is receiving chemotherapy and radiation. Last doses were last week. No fevers. Labs were obtained and show white count of 0.33. Neutrophils never resulted. BMP was unremarkable along with LFTs, bilirubin and lactic acid. Lipase was normal. Troponin was negative. EKG was unchanged from his previous. He had no chest pain or shortness of breath. Chest x-ray and CT of abdomen and pelvis was benign with the exception of possible metastatic disease in the liver. Patient was given 2 L IV fluids along with IV morphine and Zofran. He did feel significant better. He was admitted to internal medicine as he was unable to keep anything down. His A. fib with RVR rate did trend down with hydration. He was not given any rate controlling medications. Medication Reconcilliation Current Medication List: was personally reviewed by me Blood Pressure Screening Patient's blood pressure: Normal blood pressure Consults Time Called: 1550 dR. de la cruz I reviewed the patient's case with , [facility] will evaluate the patient for further management. Impression Primary Impression: Vomiting Additional Impressions: Dehydration Abdominal pain Scribe Attestation The scribe's documentation has been prepared under my direction and personally reviewed by me in its entirety. I confirm that the note above accurately reflects all work, treatment, procedures, and medical decision making performed by me. Departure Information Dispostion Being Evaluated By Hospitalist Drew Gann D.O. (PCP) Forms HOME CARE DOCUMENTATION FORM, IMPORTANT VISIT INFORMATION Patient Instructions My [facility] Problem Qualifiers Primary Impression: Vomiting Vomiting type: unspecified Vomiting Intractability: non-intractable Nausea presence: with nausea Qualified Codes: R11.2 - Nausea with vomiting, unspecified Additional Impressions: Abdominal pain Abdominal location: unspecified location Qualified Codes: R10.9 - Unspecified abdominal pain
[2017-11-24] MEDS ORDERED: APIXABAN 2.5 MG TAB PO SCH (20:00)
[2017-11-24] MEDS ORDERED: LACTOBACILLUS ACIDOPHILUS 1 GM PACK PEG SCH (20:00)
[2017-11-24] MEDS ORDERED: HYDROmorphone INJ 0.5 MG/0.5 ML SYR IV ONE (21:12)
--- NOTE | 2017-11-24 21:57 | HISTORY & PHYSICAL EXAMINATION ---
DATE OF ADMISSION: 11/24/2017 PRIMARY CARE PHYSICIAN: Dr. Marie CHIEF COMPLAINT: Ongoing nausea and vomiting for the last 2 days. He feels lightheadedness and also dizziness at times with it. HISTORY OF PRESENT COMPLAINT: He is a 57-year-old male with significant past medical history of small cell lung cancer with mediastinal mass and other metastasis, ongoing chemo and radiation, chronic atrial fibrillation, on Eliquis, and diastolic heart failure, apparently has been getting chemo and radiation for his small cell lung cancer. He got his chemo about 2 weeks ago and radiation last Sunday. Last Sunday and before that, he was complaining of ongoing nausea and vomiting and actually on Sunday, he was seen by his oncologist, Dr. Britt and he got intravenous fluid administration on Sunday and Sunday for nausea and vomiting. The condition has not got any better. He continues to have nausea and vomiting. He cannot keep anything down and he is getting weak and tired from it. No fever, chills, or rigors. No cough or phlegm and no problem with urine and/or bowel habits. He is evaluated today in the ER and he has GENE and also he was noted to have a very low neutrophil count of 0.33. From that point, he was admitted to medical floor for continuation of care. PAST MEDICAL HISTORY: Significant for small cell lung cancer with mediastinal mass with ongoing chemo and radiation; acute on chronic diastolic heart failure with atrial fibrillation, on Eliquis; history of abdominal aortic aneurysm; solitary kidney; CAD without angina; hyperlipidemia; and history of pleural effusion. PAST SURGICAL HISTORY: Significant for bronchoscopic biopsy on September of this year and removal of kidney in 2014. FAMILY HISTORY: Mother has diabetes. Father did have a heart attack and stroke. SOCIAL HISTORY: He is single. He has 1 child. He quit smoking in 2003. He drinks occasionally and he has been reasonably ambulant. ALLERGIES: PENICILLIN. MEDICATIONS: As an outpatient, he has been getting fenofibrate 145 mg daily, lisinopril 5 mg daily, Zofran 4 mg tablet as directed, potassium 60 mEq b.i.d., torsemide 20 mg in the morning, Trulicity as directed, home oxygen, pravastatin 80 mg daily, Eliquis 5 mg b.i.d., vitamin D3 of 2000 units daily, cyclobenzaprine 10 mg at night, Nucynta 1 mg for sleep as needed, ferrous sulfate 325 mg daily, hydrocodone/acetaminophen 7.5/325 one tablet p.o. q.4-6 hourly p.r.n., lactobacillus as directed, Synthroid 112 mcg daily, magnesium oxide 400 mg every 2 days, metoprolol succinate 25 mg in the morning, nitroglycerin as directed, and oxycodone immediate release 5 to 10 mg 1 tablet q.4 hourly. REVIEW OF SYSTEMS: Other systems that were unremarkable except those mentioned in history of present complaint. PHYSICAL EXAMINATION: GENERAL: On examination in the Emergency Room, he is not having any acute distress. VITAL SIGNS: Temperature 36.5, pulse is 124, blood pressure 106/63, and saturation 97% on room air. HEENT: Unremarkable. NECK: Supple. No JVD. No bruit. CHEST: Occasional crackles on the left side. HEART: S1, S2 regular. ABDOMEN: Soft, benign, nontender. No organomegaly. Scar from prior surgery. EXTREMITIES: 1+ edema bilaterally, seems to be chronic skin changes associated with it. MUSCULOSKELETAL: Examination of the musculoskeletal system did not show any acute arthritis. CENTRAL NERVOUS SYSTEM: He is alert, awake, oriented x3. No focal sensory and/or motor deficit appreciated. LABORATORY DATA: Labs noted today white count was 0.33, H&H 8.9/27.3, and platelet was 46. Sodium 135, potassium 4.7, chloride 102, carbon dioxide 25, BUN 27, creatinine 1.45. Lactic acid 1.42. Bilirubin 1.3. AST, ALT, and alkaline phosphatase normal. Troponin less than 0.015. Lipase 107. IMAGING STUDIES: Chest x-ray reported persistent minimal right basilar opacity with a small right pleural effusion, resolution of left basilar opacity and left pleural effusion. CT of the abdomen and pelvis reported as suspicious lesion in the right hepatic dome, which is concerning for a site of metastatic disease, hepatic steatosis, chronic non-postsurgical changes. No obstruction. EKG was in sinus rhythm with baseline irregularity, right bundle branch block with associated ST-T wave changes. Compared with EKG before, he has no significant change except tachycardia. IMPRESSION AND PLAN: 1. Ongoing nausea, vomiting, and dehydration Secondary to Radiation induced Esophagitis and on spread of Lung cancer-See addendum on CT scan Complicated by chemotherapy medication. The patient will be admitted to medical floor. He will be given adequate amount of IV fluid. Keeping in mind that he has history of diastolic heart failure, we will hold his diuretics and lisinopril at this time. Monitor kidney functions and fluid status. 2.GENE: Secondary to ongoing Nausea,vomiting.Will give cautious amount of IVF , hold Lisinopril and Monitor PRP. 3. Neutropenia. His neutrophil count is 0.33. The case was discussed with on-call oncologist, Dr. Macks. Suggested Neupogen for 3 days. We will monitor CBC and put him for neutropenic precaution.Antibiotics if any signs of infection. Discussed with the Oncologist. 4.Small Cell Lung Cancer with metastases with metastasis, ongoing chemo and radiation as per oncologist.Last Chemo ~2weeks ago and Radiation on Sunday last. 5. Atrial fibrillation, on Eliquis. His heart rate is increased right now, less likely secondary to dehydration. Has Diastolic Heart failure. We will continue with his Eliquis and other cardiac medications except lisinopril. 6. Hyperlipidemia. He has been on statin. At this time, we will hold for a few days. 7. Gastrointestinal prophylaxis with Protonix. 8. Deep venous thrombosis prophylaxis, Eliquis. He has very high suspicion for Clot formation. Eliquis is continued after discussion with the patient even with Low Platelet count. He was receiving Eliquis during his last admission when Platelet was ~40s.May need to stop if any sign of bleeding. 8. Code status. Discussed with the patient. He will be a DNR. In my clinical assessment, the beneficiary meets criteria as per CMS for 2 midnight stay in the hospital. ALIRIO
[2017-11-24 23:32] VITALS: BP 97/59; PULSE 100; TEMP 36.7; O2SAT 95
[2017-11-25] VITALS (8 sets, daily range): BP systolic 87–124; BP diastolic 53–78; PULSE 103–144; TEMP 36.7–37.3; O2SAT 95–100; Ht 177.8 cm; Wt 93.1 kg
[2017-11-25] MEDS: OXYCODONE HCL IR 5 MG TAB (IMMEDIATE RELEASE) PO PRN ×2 (01:57→09:41)
[2017-11-25] MEDS: ONDANSETRON INJ 2 MG/ML 2 ML VIAL IV PRN ×2 (01:57→07:46)
[2017-11-25] MEDS: HYDROmorphone INJ 0.5 MG/0.5 ML SYR IV PRN ×5 (02:03→21:07)
[2017-11-25] MEDS: SODIUM CHLORIDE 0.9% 1000ML 1,000 ML IV SCH ×3 (05:23→23:45)
[2017-11-25] MEDS: LEVOTHYROXINE 112 MCG TAB PO SCH ×2 (06:29→07:57)
[2017-11-25 07:00] LABS: CALCIUM 8.6 mg/dl (8.5-10.1); CREATININE 1.14 mg/dl (0.60-1.40); POTASSIUM 4.5 mmol/L (3.5-5.1)
[2017-11-25 07:01] LABS: PHOSPHORUS 2.2 mg/dl (2.5-4.9)
[2017-11-25 07:10] LABS: HEMATOCRIT 24.2 % (42-52); HEMOGLOBIN 7.9 g/dL (14.0-18.0); MEAN CELL VOLUME 86.1 fL (80-100); MEAN CORPUSCULAR HEMOGLOBIN 28.1 pg (25-34); MEAN CORPUSCULAR HGB CONC 32.6 g/dl (32-36); PLATELET COUNT 19 K/uL (130-400); RED CELL DISTRIBUTION WIDTH CV 14.9 % (11.5-14.5); WHITE BLOOD COUNT 0.24 K/uL (4.8-10.8)
[2017-11-25] MEDS: MAGNESIUM OXIDE 400 MG TAB PO SCH (07:51)
[2017-11-25] MEDS: FERROUS SULFATE 325 MG TAB PO SCH (07:56)
[2017-11-25] MEDS: CHOLECALCIFEROL 1000 INTER.UNIT TAB PO SCH (07:56)
[2017-11-25] MEDS ORDERED: LACTOBACILLUS ACIDOPHILUS (FLORANEX) TAB PO SCH (08:00)
[2017-11-25] MEDS ORDERED: METOPROLOL SUCC 25MG EXT REL TAB PO SCH (08:00)
[2017-11-25] MEDS: FILGRASTIM 480 MCG/1.6 ML VIAL SC SCH (08:03)
[2017-11-25] MEDS ORDERED: [UNRECOGNIZED DRUG - OTHER] IV ONE (09:00)
[2017-11-25] MEDS ORDERED: SODIUM PHOSPHATE IV ONE (09:00)
[2017-11-25] MEDS ORDERED: MAG SULFATE IV ONE (09:00)
[2017-11-25] MEDS ORDERED: BISACODYL 10 MG SUPP PR STA (10:19)
[2017-11-25] MEDS ORDERED: BISACODYL 10 MG SUPP ONE (10:21)
--- NOTE | 2017-11-25 11:43 | Oncology Consultation ---
Oncology/Heme Consultation Date of Consultation: Nov 25, 2017. Attending Physician: Beatrice Keys DO Reason for Consultation: Limited stage SCLC Nausea, vomiting, and esophagitis History of Present Illness Mr. Glasgow is a 57 year old gentleman who was diagnosed in September with limited stage small cell lung cancer after presenting with a very large mediastinal mass. He initially required TPN, but now is taking his nutrition PO. He's undergone 2 cycles of carboplatin and etoposide. He recently completed a course of concurrent radiation and was planning to start a cone-down RT course in [place]. He has had intractable nausea and vomiting and painful esophagitis for the last week or two. He was admitted for symptom control. A CT as part of that evaluation reveals marked improvement in his mediastinal mass. It also demonstrates some thickening in his distal esophagus that is likely related to esophagitis. Finally, a subtle, ill-defined hypodense area was noted in the dome of his liver. He is feeling better today, though he still has considerable pain with swallowing. Using topical analgesics, he's able to swallow soft foods. Past Medical/Surgical History Medical Problems: (1) Abdominal pain Status: Chronic (2) Anticoagulants,Lt,Current Use Status: Chronic (3) Atrial fibrillation Status: Chronic (4) Bowel obstruction Status: Acute (5) Congestive Heart Failure Nos Status: Chronic (6) Coronary Atherosclerosis Of [place] Coronary Vessel Status: Chronic (7) Dehydration Status: Acute (8) Diabetes mellitus type 2 Status: Chronic (9) Hyperlipidemia Status: Chronic (10) Hypertensive disorder, systemic arterial Status: Chronic (11) Hypothyroidism Status: Chronic (12) Obstructive Sleep Apnea (Adult) (Pediatric) Status: Chronic (13) Renal insufficiency Status: Chronic (14) Right lumbar radiculitis Status: Acute (15) SOB (shortness of breath) Status: Acute (16) Substernal chest pain Status: Acute (17) Upper abdominal pain Status: Acute (18) Vomiting Status: Acute Family History Diabetes mellitus MOTHER FH: CAD (coronary artery disease) FATHER FH: cancer SISTER (possible uterine CA) Stroke FATHER MOTHER Social History Smoking Status: Former Smoker Drug Use: none Marital Status: single Occupation Status: disabled Allergies Coded Allergies: Penicillins (Verified Allergy, Intermediate, RASH, 11/24/17) PT HAD A RXN AND IT COULD NOT BE RULED OUT IF IT WAS THE PCN Home Medications Scheduled Apixaban (Eliquis), 5 MG PO BID Cholecalciferol (Vitamin D3 Super Strength), 2,000 INTER.UNIT PO DAILY Dulaglutide (Trulicity), 0.75 MG INJ WK Fenofibrate (Fenofibrate), 145 MG PO DAILY Ferrous Sulfate (Ferrousul), 325 MG PO DAILY Home O2 Therapy (Oxygen), 2 LITERS NA HS Lactobacillus (Probiotic Acidophilus), 1 CAP PEG BID Levothyroxine Sodium (Levothyroxine Sodium), 112 MCG PO DAILY Lisinopril (Lisinopril), 5 MG PO DAILY Magnesium Oxide (Mg Supplement (Magnesium Oxide), 400 MG PO Q2D Metoprolol Succinate (Metoprolol Succinate ER), 25 MG PO QAM Potassium Ext Rel (Klor-Con), 3 TABS PO BID Pravastatin Sodium (Pravastatin Sodium), 80 MG PO DAILY Torsemide (Torsemide), 10 MG PO QAM Scheduled PRN Cyclobenzaprine HCl (Cyclobenzaprine HCl), 10 MG PO HS PRN for Muscle Spasms Eszopiclone (Eszopiclone), 1 MG PO HS PRN for Sleep Hydrocodone/Acetaminophen 7.5MG/325MG ([place] 7.5MG/325MG), 1 TAB PO Q4-6HRS PRN for Pain Nitroglycerin (Nitrostat), 0.4 MG SL UD PRN for Chest Pain Ondansetron Hcl (Zofran), 4 MG PO q6-8h PRN for Nausea or Vomiting Oxycodone Immediate Rel Tab (Roxicodone Ir), 1-2 TAB PO Q4H-6H PRN for Severe Pain Current Inpatient Medications Current Inpatient Medications Medications (Trade) Dose Ordered Sig/Elizabeth Route Start Time Stop Time Status Last Admin Dose Admin Ondansetron HCl (Zofran Inj) 4 mg Q6H PRN IV 11/24/17 17:00 12/24/17 16:59 11/25/17 07:46 4 MG Cyclobenzaprine HCl (Flexeril Tab) 10 mg HS PRN PO 11/24/17 17:15 12/24/17 17:14 Eszopiclone (Lunesta Tab) 1 mg HS PRN PO 11/24/17 17:15 12/24/17 17:14 Acetaminophen/ Hydrocodone Bitart ([place] 7.5/325 Tab) 1 tab Q6H PRN PO 11/24/17 17:15 12/08/17 17:14 Levothyroxine Sodium (Synthroid Tab) 112 mcg DAILYBB PO 11/25/17 06:30 12/25/17 06:59 11/25/17 07:57 112 MCG Metoprolol Succinate (Toprol Xl Tab) 25 mg QAM PO 11/25/17 08:00 12/25/17 08:59 Nitroglycerin (Nitrostat Tab) 0.4 mg UD PRN SL 11/24/17 17:15 12/24/17 17:14 Oxycodone HCl (Roxicodone Immediate Rel Tab) 5 mg Q4H PRN PO 11/24/17 17:15 12/08/17 17:14 11/25/17 09:41 5 MG Apixaban (Eliquis Tab) 5 mg BID PO 11/24/17 20:00 12/24/17 20:59 Future Hold 11/24/17 19:49 5 MG Cholecalciferol (Vitamin D Tab) 2,000 inter.unit DAILY PO 11/25/17 08:00 12/25/17 08:59 11/25/17 07:56 2,000 INTER.UNIT Ferrous Sulfate (Feosol Tab) 325 mg DAILY PO 11/25/17 08:00 12/25/17 08:59 11/25/17 07:56 325 MG Magnesium Oxide (Mag-Ox Tab) 400 mg Q2D@0900 PO 11/25/17 09:00 12/25/17 08:59 11/25/17 07:51 400 MG Filgrastim (Neupogen Sq) 480 mcg DAILY SC 11/25/17 08:00 11/26/17 12:00 11/25/17 08:03 480 MCG Sodium Chloride 1,000 ml @ 100 mls/hr Q10H IV 11/24/17 17:15 12/24/17 17:14 Future hold 11/25/17 05:23 100 MLS/HR Lactobacillus Acidophilus (Floranex Tab) 4 tab BID PO 11/25/17 08:00 12/25/17 07:59 11/25/17 07:57 4 TAB Hydromorphone HCl (Dilaudid Inj) 0.5 mg Q3H PRN IV 11/24/17 21:15 12/08/17 21:14 11/25/17 10:43 0.5 MG Magnesium Sulfate 4 gm/Sodium Phosphate 15 mmol/ Sodium Chloride 513 ml @ 128 mls/hr 0900 ONCE IV 11/25/17 09:00 11/25/17 13:00 11/25/17 09:34 128 MLS/HR Review of Systems Constitutional: + weakness, + fatigue, No fever, No chills ENT: + trouble swallowing Respiratory: No cough, No shortness of breath Cardiovascular: + chest pain Abdomen: + pain, + nausea, + vomiting Hematologic / Lymphatic: No swollen lymph nodes, No night sweats Physical Exam Date Time Temp Pulse Resp B/P (MAP) Pulse Ox O2 Delivery O2 Flow Rate FiO2 11/25/17 09:44 124/78 (93) 11/25/17 08:15 37.1 115 19 87/56 (66) 98 Room Air 11/25/17 04:22 36.9 103 20 100/61 (74) 95 Room Air 11/25/17 00:00 Room Air 11/24/17 23:32 36.7 100 18 97/59 (72) 95 Room Air 11/24/17 20:00 Room Air 11/24/17 17:46 113 91/62 96 11/24/17 17:42 36.5 114 21 105/68 96 Room Air 11/24/17 16:33 114 105/68 97 Room Air 11/24/17 15:05 99 21 11/24/17 15:00 93/60 11/24/17 14:59 102 15 11/24/17 14:34 152 11/24/17 14:30 92/58 11/24/17 13:43 36.5 134 24 106/63 97 Room Air General Appearance: no apparent distress, + pertinent finding (Ill-appearing but comfortable) ENT: pharynx normal (mucous membranes moist), + pertinent finding (wears a cochlear inplant on the right) Respiratory/Chest: lungs clear Cardiovascular: regular rate, rhythm Abdomen/GI: non tender, soft Neurologic/Psych: alert, oriented x 3 Laboratory Results Last 24 Hours Test 11/24/17 14:25 11/24/17 14:31 11/24/17 22:40 11/25/17 05:58 White Blood Count 0.33 K/uL 0.24 K/uL Red Blood Count 3.17 M/uL 2.81 M/uL Hemoglobin 8.9 g/dL 7.9 g/dL Hematocrit 27.3 % 24.2 % Mean Corpuscular Volume 86.1 fL 86.1 fL Mean Corpuscular Hemoglobin 28.1 pg 28.1 pg Mean Corpuscular Hemoglobin Concent 32.6 g/dl 32.6 g/dl RDW Standard Deviation 47.2 fL 47.0 fL RDW Coefficient of Variation 15.0 % 14.9 % Platelet Count 46 K/uL 19 K/uL Mean Platelet Volume 9.8 fL Platelet Estimate DECREASED SIGNIFIC DECREASED Sodium Level 135 mmol/L 135 mmol/L Potassium Level 4.7 mmol/L 4.5 mmol/L Chloride Level 102 mmol/L 104 mmol/L Carbon Dioxide Level 25 mmol/L 20 mmol/L Anion Gap 8.0 mmol/L 11.0 mmol/L Blood Urea Nitrogen 27 mg/dl 23 mg/dl Creatinine 1.45 mg/dl 1.14 mg/dl Est Creatinine Clear Calc Drug Dose 58.7 ml/min 84.7 ml/min Estimated GFR () 62.0 82.9 Estimated GFR (Non- 53.5 71.5 BUN/Creatinine Ratio 18.3 20.6 Random Glucose 89 mg/dl 79 mg/dl Calcium Level 9.6 mg/dl 8.6 mg/dl Total Bilirubin 1.3 mg/dl Direct Bilirubin 0.6 mg/dl Aspartate Amino Transf (AST/SGOT) 17 U/L Alanine Aminotransferase (ALT/SGPT) 17 U/L Alkaline Phosphatase 48 U/L Troponin I < 0.015 ng/ml Total Protein 7.4 gm/dl Albumin 3.4 gm/dl Lipase 107 U/L Bedside Lactic Acid Venous 1.42 mmol/L Urine Color DK YELLOW Urine Appearance CLEAR Urine pH 5.0 Urine Specific [place] 1.022 Urine Protein NEG Urine Glucose (UA) NEG Urine Ketones NEG Urine Occult Blood NEG Urine Nitrite NEG Urine Bilirubin NEG Urine Urobilinogen NEG Urine Leukocyte Esterase NEG Urine WBC (Auto) 1-5 /hpf Urine RBC (Auto) 0-4 /hpf Urine Hyaline Casts (Auto) 10-30 /lpf Urine Epithelial Cells (Auto) 5-10 /lpf Urine Bacteria (Auto) NEG Urine Pathogenic Casts /lpf Phosphorus Level 2.2 mg/dl Magnesium Level 1.6 mg/dl Assessment & Plan With regard to his esophagitis, this is almost certainly related to his radiation injury. In addition to oral narcotics, I might consider some topical therapies, such as viscous lidocaine or an opiate elixir or both, prior to eating. He still has more RT planned, so this inflammation will likely get worse before it gets better. If he cannot maintain his nutrition by mouth, he may need to consider a feeding tube. With regard to the liver lesion, it is difficult to characterize. The finding is subtle and determining if it was present on prior scans is hard, as they had some scatter artifact and weren't necessarily done to image the liver. His PET/ CT did not show any focal uptake in this area, but there was a lot of heterogenous uptake throughout the liver and this can sometimes mask smaller lesions. Overall, it would be unusual for a patient who is responding to treatment to suddenly develop a metastasis during active therapy, though it is possible the response we're seeing in his mediastinal mass is due to radiation only rather than to chemo. One way to sort this out would be a dedicated triple- phase CT of the abdomen. This will help eliminate some of the timing issues that can make interpreting liver imaging difficult. He is not a candidate for MRI due to his cochlear implant, though that would also be useful. I would not keep him here to obtain such a CT, but if he's going to be here a few days anyway, it might be reasonable to get it done while he's here.
[2017-11-25] MEDS ORDERED: SODIUM CHLORIDE 0.9% 1000ML 1,000 ML IV SCH ×2 (16:30→21:00)
[2017-11-25] MEDS ORDERED: LIDOCAINE HCL 2% VISC SOLN 20 ML UDC MT PRN (16:30)
[2017-11-25] MEDS: ONDANSETRON INJ 2 MG/ML 2 ML VIAL IV SCH ×2 (16:56→23:45)
[2017-11-25] MEDS ORDERED: VANCOMYCIN CONSULT ACTIVE PRN (17:15)
[2017-11-25] MEDS ORDERED: CEFEPIME CONSULT ACTIVE PRN (17:15)
[2017-11-25 17:36] LABS: INR 1.1 (0.9-1.1)
[2017-11-25] MEDS ORDERED: VANCOMYCIN INJ 2,500 MG in SODIUM CHLORIDE 0.9% 500ML 500 ML IV ONE (17:45)
[2017-11-25 17:49] LABS: CALCIUM 8.3 mg/dl (8.5-10.1); CREATININE 1.24 mg/dl (0.60-1.40); PHOSPHORUS 2.2 mg/dl (2.5-4.9); POTASSIUM 4.2 mmol/L (3.5-5.1)
[2017-11-25 18:01] LABS: HEMATOCRIT 21.8 % (42-52); HEMOGLOBIN 7.3 g/dL (14.0-18.0); MEAN CELL VOLUME 84.8 fL (80-100); MEAN CORPUSCULAR HEMOGLOBIN 28.4 pg (25-34); MEAN CORPUSCULAR HGB CONC 33.5 g/dl (32-36); PLATELET COUNT 14 K/uL (130-400); RED CELL DISTRIBUTION WIDTH SD 46.1 fL (36.4-46.3); WHITE BLOOD COUNT 0.25 K/uL (4.8-10.8)
[2017-11-25 18:11] LABS: CKMB 0.8 ng/ml (0.5-3.6)
--- NOTE | 2017-11-25 19:00 | Pharmacy Progress Note ---
Pharmacy Abx Initial Consult Date of Service Nov 25, 2017. Pharmacy Dosing Scope Date of Consult: 11/25/17 Consultation requested by: Dr. Keys Pharmacy is consulted to initiate vancomycin and cefepime IV dosing therapy, order appropriate labs and adjust drug dose/frequency. Subjective The patient is a 57 year old male admitted on Nov 24, 2017 at 17:06. Objective Height (Feet): 5 Height (Inches): 10.00 Weight (Kilograms): 97.300 Vital Signs (Past 12Hrs) Vital Signs Past 12 Hours Date Time Temp Pulse Resp B/P (MAP) Pulse Ox O2 Delivery O2 Flow Rate FiO2 11/25/17 16:00 Room Air 11/25/17 15:20 36.7 144 18 116/72 (87) 99 Room Air 11/25/17 12:09 36.7 134 22 102/62 (75) 100 Room Air 11/25/17 09:44 124/78 (93) 11/25/17 08:20 Room Air 11/25/17 08:15 37.1 115 19 87/56 (66) 98 Room Air Lab Results (24Hrs) Laboratory Tests (24 Hours) Test 11/25/17 17:15 Lactic Acid Level 2.4 mmol/L (0.4-2.0) *H Total Creatine Kinase 26 U/L (39-308) L White Blood Count 0.25 K/uL (4.8-10.8) *L Micro Results Date/Time Source Procedure Growth Status 11/25/17 17:15 Blood Blood Culture Pending Received 11/25/17 17:01 Blood Blood Culture Pending Received 11/25/17 17:20 Sputum Expectorated Sputum Gram Stain - Preliminary Resulted 11/25/17 17:20 Sputum Expectorated Sputum Sputum Culture - Preliminary Resulted Risk Factors for Resistance * Hospitalization for 48 hours or more within the past 90 days * Hospitalized 10/17 - 10/27 for chest pain and 10/29-11/07 for pneumonia * Immunocompromised: chemotherapy and radiation treatment * Antimicrobial use within the last 90 days: received levaquin and clindamycin in early October for pneumonia. Assessment & Plan Assessment 57 year old male currently undergoing chemotherapy and radiation for small cell lung cancer with febrile neutropenia. Pt currently with GENE. Baseline Scr<1. Vancomycin dosing based on scr of 1.14. Dose will be adjusted if renal function changes. Estimated pk parameters: ke=0.075 t1/2=9hrs Blood and sputum cultures pending. Plan Vancomycin and cefepime for treatment of febrile neutropenia with evolving sepsis. Vancomycin IV * Loading dose: 2500 mg (25 mg/kg) * Maintenance dose: 1500 mg IV (15 mg/kg) every 12 hours * Goal trough level for febrile neutropenia: 15 to 20 mcg/mL * Trough/Random level ordered for 11/27 @1730 Cefepime * 2 gm IV q 8 hours * No dose adjustment necessary for patient's with crcl> 60ml/min Pharmacy will continue to follow and will adjust dose/frequency as necessary. Thank you.
[2017-11-25] MEDS: CEFEPIME IV 2,000 MG in SYRINGE 7.5 ML IV SCH (19:12)
[2017-11-25] MEDS: ACETAMINOPHEN/HYDROCODONE ELIX 15 ML/CUP UDP PO PRN (19:12)
[2017-11-25] MEDS: METOPROLOL TARTRATE 1 MG/ML VIAL IV. SCH ×2 (19:12→23:48)
--- NOTE | 2017-11-25 21:00 | Progress Note ---
Medicine Progress Note Date & Time of Visit: Nov 25, 2017 at 16:46. Subjective reports consistent spit up from excessive secretions. constantly blowing nose with some mild bleeding seen pt notices that his HR is fast but denies chest pain, palpitations or shortness of breath. feels shaking chills denies sore throat food gets stuck in esophagus-dilaudid helps him. Objective Last 8 Hrs Date Time Temp Pulse Resp B/P (MAP) Pulse Ox O2 Delivery O2 Flow Rate FiO2 11/25/17 16:00 Room Air 11/25/17 15:20 36.7 144 18 116/72 (87) 99 Room Air 11/25/17 12:09 36.7 134 22 102/62 (75) 100 Room Air 11/25/17 09:44 124/78 (93) Physical Exam: GEN: WNWD, in no acute distress, alert and appropriate HEENT: NC/AT, pupils are round and equal bilaterally, normal sclerae, no sinus TTP, pharynx is nonacute but there is posterior oropharyngeal cobblestoning indicating some about of post nasal drip. no cervical LAD, +alopecia CARDIO: reg rate, S1/2 heard without m/g/r LUNGS: CTA bilaterally, no crackles, rales or wheezes, good diaphragmatic excursion ABD: soft, non-tender, non-distended, no rebound or guarding, +BS EXTREMITY: RP and DP palpable 2+ bilat, no LE swelling or edema, extremities are warm and well-perfused NEURO: CN 2-12 grossly intact MUSC: moves all extremities equally, no gross focal deficits. SKIN: warm and dry Laboratory Results: 11/25/17 17:15 11/25/17 17:15 Test 11/24/17 14:25 11/24/17 14:31 11/24/17 22:40 11/25/17 05:58 Total Bilirubin 1.3 mg/dl (0.2-1) Direct Bilirubin 0.6 mg/dl (0-0.2) Aspartate Amino Transf (AST/SGOT) 17 U/L (15-37) Alanine Aminotransferase (ALT/SGPT) 17 U/L (12-78) Alkaline Phosphatase 48 U/L (45-117) Total Protein 7.4 gm/dl (6.4-8.2) Albumin 3.4 gm/dl (3.4-5.0) Lipase 107 U/L (73-393) Bedside Lactic Acid Venous 1.42 mmol/L (0.90-1.70) Urine Color DK YELLOW Urine Appearance CLEAR (CLEAR) Urine pH 5.0 (4.5-7.5) Urine Specific [place] 1.022 (1.000-1.030) Urine Protein NEG (NEG) Urine Glucose (UA) NEG (NEG) Urine Ketones NEG (NEG) Urine Occult Blood NEG (NEG) Urine Nitrite NEG (NEG) Urine Bilirubin NEG (NEG) Urine Urobilinogen NEG (NEG) Urine Leukocyte Esterase NEG (NEG) Urine WBC (Auto) 1-5 /hpf (0-5) Urine RBC (Auto) 0-4 /hpf (0-4) Urine Hyaline Casts (Auto) 10-30 /lpf (0-5) Urine Epithelial Cells (Auto) 5-10 /lpf (0-5) Urine Bacteria (Auto) NEG (NEG) Urine Pathogenic Casts /lpf (0) Platelet Estimate SIGNIFIC DECREASED Test 11/25/17 17:15 Red Blood Count 2.57 M/uL (4.7-6.1) Mean Corpuscular Volume 84.8 fL (80-100) Mean Corpuscular Hemoglobin 28.4 pg (25-34) Mean Corpuscular Hemoglobin Concent 33.5 g/dl (32-36) RDW Standard Deviation 46.1 fL (36.4-46.3) RDW Coefficient of Variation 15.0 % (11.5-14.5) Mean Platelet Volume 12.0 fL (7.4-10.4) Prothrombin Time 12.0 SECONDS (9.0-12.0) Prothromb Time International Ratio 1.1 (0.9-1.1) Anion Gap 9.0 mmol/L (3-11) Est Creatinine Clear Calc Drug Dose 77.8 ml/min Estimated GFR () 74.9 Estimated GFR (Non- 64.6 BUN/Creatinine Ratio 16.4 (10-20) Lactic Acid Level 2.4 mmol/L (0.4-2.0) Calcium Level 8.3 mg/dl (8.5-10.1) Phosphorus Level 2.2 mg/dl (2.5-4.9) Magnesium Level 2.4 mg/dl (1.8-2.4) Total Creatine Kinase 26 U/L (39-308) Creatine Kinase MB 0.8 ng/ml (0.5-3.6) Creatine Kinase MB Ratio 3.1 (0-3.0) Troponin I < 0.015 ng/ml (0-0.045) Thyroid Stimulating Hormone (TSH) 0.170 uIu/ml (0.300-4.500) Date/Time Source Procedure Growth Status 11/25/17 17:15 Blood Blood Culture Pending Received 11/25/17 17:20 Sputum Expectorated Sputum Gram Stain - Preliminary Resulted 11/25/17 17:20 Sputum Expectorated Sputum Sputum Culture - Preliminary Resulted Last 24 Hours Test 11/24/17 22:40 11/25/17 05:58 11/25/17 16:19 11/25/17 16:37 Urine Color DK YELLOW Urine Appearance CLEAR Urine pH 5.0 Urine Specific [place] 1.022 Urine Protein NEG Urine Glucose (UA) NEG Urine Ketones NEG Urine Occult Blood NEG Urine Nitrite NEG Urine Bilirubin NEG Urine Urobilinogen NEG Urine Leukocyte Esterase NEG Urine WBC (Auto) 1-5 /hpf Urine RBC (Auto) 0-4 /hpf Urine Hyaline Casts (Auto) 10-30 /lpf Urine Epithelial Cells (Auto) 5-10 /lpf Urine Bacteria (Auto) NEG Urine Pathogenic Casts /lpf White Blood Count 0.24 K/uL Red Blood Count 2.81 M/uL Hemoglobin 7.9 g/dL Hematocrit 24.2 % Mean Corpuscular Volume 86.1 fL Mean Corpuscular Hemoglobin 28.1 pg Mean Corpuscular Hemoglobin Concent 32.6 g/dl RDW Standard Deviation 47.0 fL RDW Coefficient of Variation 14.9 % Platelet Count 19 K/uL Platelet Estimate SIGNIFIC DECREASED Sodium Level 135 mmol/L Potassium Level 4.5 mmol/L Chloride Level 104 mmol/L Carbon Dioxide Level 20 mmol/L Anion Gap 11.0 mmol/L Blood Urea Nitrogen 23 mg/dl Creatinine 1.14 mg/dl Est Creatinine Clear Calc Drug Dose 84.7 ml/min Estimated GFR () 82.9 Estimated GFR (Non- 71.5 BUN/Creatinine Ratio 20.6 Random Glucose 79 mg/dl Calcium Level 8.6 mg/dl Phosphorus Level 2.2 mg/dl Magnesium Level 1.6 mg/dl Creatine Kinase MB Ratio Test 11/25/17 16:41 Date/Time Source Procedure Growth Status 11/25/17 16:19 Blood Blood Culture Pending Ordered 11/25/17 16:19 Blood Blood Culture Pending Ordered Assessment & Plan 57 yo M with lung cancer on XRT and chemo presents with intolerance to PO and nausea with vomiting. 1. Intolerance to PO 2/2 esophagitis likely 2/2 XRT-scheduled antiemetics, cont IVF, Lortab elixir, Diladud as needed. Pt reports that he realizes he may be aspirating but prefers to stick to the clears to give himself some caloric intake. Enrollment Representative saw him today and recommended Speech Path eval along with GI eval for PEG vs TPN. Cont supportive care. 2. Sepsis-unknown etiology but sinus infection is a possibility. Pt is tachycardic with neutropenia and shaking chills. He report continued runny nose and continues to blow his nose. He continues to cough up secretions. He has afib and is in RVR at this time. Concerned that he is developing a sepsis picture, however. Lactate is elevated, IVF were given, Vanc/Cepefime started and cultures were ordered. Will monitor for clinical improvement on telemetry floor. Repeat lactate in 6 hours. Cont to bolus IVF as needed. Reassessed after 1L bolus and appeared to be doing better with improved heart rate. Cont to hold lisinopril and diuretics. 3. GENE-resolved after IVF overnight 4. Neutropenia/pancytopenia 2/2 chemo. cont neutropenic precauations. Filgrastim x 3 days per Oncology who is following his progress in the hospital. 5. Small Cell Lung Cancer -cont per Oncology. Considering outpatient triple phase CT to better visualize liver findings. 6. Afib w RVR 2/2 sepsis and dehydration above along with intolerance of pills including his Toprol. Changed him to Lopressor 5mg IV q6hrs. IVF. Eliquis on hold in setting of <20K platelet count and significant anemia. This was discussed with Oncology. 7. Code status. Discussed with the patient. He will be a DNR. DVT proph-contraindicated, SCD DNR dispo-hospital for the next 2-3 days. Beatrice Keys DO [facility] Hospitalist Consultants: Oncology Current Inpatient Medications: Current Inpatient Medications Medications (Trade) Dose Ordered Sig/Elizabeth Route Start Time Stop Time Status Last Admin Dose Admin Cyclobenzaprine HCl (Flexeril Tab) 10 mg HS PRN PO 11/24/17 17:15 12/24/17 17:14 Eszopiclone (Lunesta Tab) 1 mg HS PRN PO 11/24/17 17:15 12/24/17 17:14 Metoprolol Succinate (Toprol Xl Tab) 25 mg QAM PO 11/25/17 08:00 12/25/17 08:59 Nitroglycerin (Nitrostat Tab) 0.4 mg UD PRN SL 11/24/17 17:15 12/24/17 17:14 Oxycodone HCl (Roxicodone Immediate Rel Tab) 5 mg Q4H PRN PO 11/24/17 17:15 12/08/17 17:14 11/25/17 09:41 5 MG Apixaban (Eliquis Tab) 5 mg BID PO 11/24/17 20:00 12/24/17 20:59 Future Hold 11/24/17 19:49 5 MG Cholecalciferol (Vitamin D Tab) 2,000 inter.unit DAILY PO 11/25/17 08:00 12/25/17 08:59 11/25/17 07:56 2,000 INTER.UNIT Ferrous Sulfate (Feosol Tab) 325 mg DAILY PO 11/25/17 08:00 12/25/17 08:59 11/25/17 07:56 325 MG Magnesium Oxide (Mag-Ox Tab) 400 mg Q2D@0900 PO 11/25/17 09:00 12/25/17 08:59 11/25/17 07:51 400 MG Filgrastim (Neupogen Sq) 480 mcg DAILY SC 11/25/17 08:00 11/26/17 12:00 11/25/17 08:03 480 MCG Sodium Chloride 1,000 ml @ 100 mls/hr Q10H IV 11/24/17 17:15 12/24/17 17:14 Future hold 11/25/17 05:23 100 MLS/HR Hydromorphone HCl (Dilaudid Inj) 0.5 mg Q3H PRN IV 11/24/17 21:15 12/08/17 21:14 11/25/17 10:43 0.5 MG Ondansetron HCl (Zofran Inj) 4 mg Q6H IV 11/25/17 16:30 12/24/17 16:59 UNV Thiamine HCl 100 mg/Syringe 10 ml @ 2 mls/min BID IV 11/25/17 20:00 11/30/17 19:59 UNV Acetaminophen/ Hydrocodone Bitart (Lortab Elixir) 15 ml TIDM PRN PO 11/25/17 16:30 12/09/17 16:29 UNV Lidocaine HCl (Viscous Lidocaine 2% Soln) 20 ml Q6H PRN MT 11/25/17 16:30 12/25/17 16:29 UNV Levothyroxine Sodium 55 mcg/ Syringe 2.75 ml @ 2 mls/min DAILY@09 IV 11/26/17 09:00 12/26/17 08:59 UNV Sodium Chloride 1,000 ml @ 999 mls/hr Q1H1M IV 11/25/17 16:30 11/25/17 17:30 UNV Polyethylene (Miralax Powder Packet) 17 gm BID PO 11/25/17 20:00 12/25/17 19:59 UNV Miscellaneous Information (Pharmacy Consult) 1 ea NOW STAT N/A 11/25/17 16:19 11/25/17 16:20 UNV
[2017-11-25] MEDS: THIAMINE HCL INJ 100 MG in SYRINGE 9 ML IV SCH (21:09)
[2017-11-25] MEDS: POLYETHYLENE (MIRALAX) 17 GM PACK PO SCH (21:10)
[2017-11-25 23:51] LABS: CKMB 0.7 ng/ml (0.5-3.6)
[2017-11-26] VITALS (44 sets, daily range): BP systolic 92–121; BP diastolic 56–75; PULSE 91–121; TEMP 36.3–36.9; O2SAT 95–100
[2017-11-26] MEDS: HYDROmorphone INJ 0.5 MG/0.5 ML SYR IV PRN ×3 (00:28→12:01)
[2017-11-26] MEDS: CEFEPIME IV 2,000 MG in SYRINGE 7.5 ML IV SCH ×3 (01:17→16:44)
[2017-11-26] MEDS: OXYCODONE HCL IR 5 MG TAB (IMMEDIATE RELEASE) PO PRN (05:06)
[2017-11-26] MEDS: VANCOMYCIN INJ 1,500 MG in SODIUM CHLORIDE 0.9% 500ML 500 ML IV SCH ×2 (05:07→19:18)
[2017-11-26] MEDS: ONDANSETRON INJ 2 MG/ML 2 ML VIAL IV SCH ×4 (05:08→23:53)
[2017-11-26] MEDS: METOPROLOL TARTRATE 1 MG/ML VIAL IV. SCH ×4 (05:10→23:54)
[2017-11-26 06:55] LABS: HEMOGLOBIN 6.6 g/dL (14.0-18.0); MEAN CELL VOLUME 84.7 fL (80-100); PLATELET COUNT 7 K/uL (130-400); RED CELL DISTRIBUTION WIDTH SD 45.5 fL (36.4-46.3); WHITE BLOOD COUNT 0.32 K/uL (4.8-10.8)
[2017-11-26 07:13] LABS: CALCIUM 7.6 mg/dl (8.5-10.1); CREATININE 0.87 mg/dl (0.60-1.40); POTASSIUM 3.8 mmol/L (3.5-5.1)
[2017-11-26 07:26] LABS: PHOSPHORUS 1.4 mg/dl (2.5-4.9)
[2017-11-26] MEDS ORDERED: SODIUM PHOSPHATE 3 MMOL/1 ML INFUSION IV STA (08:15)
[2017-11-26] MEDS ORDERED: CALCIUM GLUCONATE 10% 2,000 MG in SODIUM CHLORIDE 0.9% 50ML 50 ML IV ONE (09:00)
[2017-11-26] MEDS: POLYETHYLENE (MIRALAX) 17 GM PACK PO SCH ×2 (09:00→21:08)
[2017-11-26] MEDS: FERROUS SULFATE 325 MG TAB PO SCH (09:00)
[2017-11-26] MEDS ORDERED: LEVOTHYROXINE SODIUM INJ 55 MCG in SYRINGE 0 ML IV SCH (09:00)
[2017-11-26] MEDS ORDERED: SODIUM PHOSPHATE INJ 30 MMOL in SODIUM CHLORIDE 0.9% 500ML 500 ML IV ONE (09:00)
[2017-11-26] MEDS: CHOLECALCIFEROL 1000 INTER.UNIT TAB PO SCH (09:00)
[2017-11-26] MEDS: LEVOTHYROXINE SODIUM INJ 25 MCG in SYRINGE 0 ML IV SCH (09:11)
[2017-11-26] MEDS: THIAMINE HCL INJ 100 MG in SYRINGE 9 ML IV SCH ×2 (09:11→21:08)
[2017-11-26] MEDS ORDERED: DiphenhydrAMINE HCL 50 MG/ML VIAL IV ONE (09:45)
[2017-11-26] MEDS ORDERED: FENTANYL 25 MCG/HR TDSY TD SCH (10:00)
[2017-11-26] MEDS ORDERED: ACETAMINOPHEN IV 650 MG in EMPTY BAG 0 ML IV ONE (10:00)
--- NOTE | 2017-11-26 10:02 | Progress Note ---
Medicine Progress Note Date & Time of Visit: Nov 26, 2017 at 09:39. Subjective 57 yo M with lung cancer on XRT and chemo presents with intolerance to PO and nausea with vomiting. More intolerant to PO today. HR is down into the one- teens. Has some increased epistaxis in the R nose. Platelets are 7 today and he is more anemic, also. States that the dilaudid is not working for him and neither is the Lortab elixir. He is asking for the Fentanyl patch back that he was using as an outpatient. Additionally, he reports that he is really done with all of this and is interested in speaking to the Palliative Care team to understand what that means. I have placed a consult for this. Although he was counseled that NPO was the recommendation until the video swallow tomorrow, however, he states that he understands the risks of aspiration and he would still like to continue trying clear liquids, juices and Gatorade for some nutrition. Objective Last 8 Hrs Date Time Temp Pulse Resp B/P (MAP) Pulse Ox O2 Delivery O2 Flow Rate FiO2 11/26/17 07:58 36.7 121 20 99/68 (78) 96 Room Air 11/26/17 05:10 104 99/65 11/26/17 04:00 98 Room Air 11/26/17 02:50 36.7 104 20 97/66 (76) 95 Room Air Physical Exam: GEN: WNWD, in no acute distress, alert and appropriate, frequent spitting of secretions, has blood soaked tissue in R nostril. HEENT: NC/AT, pupils are round and equal bilaterally, normal sclerae, MMM CARDIO: tachy rate, S1/2 heard without m/g/r LUNGS: CTA bilaterally, no crackles, rales or wheezes, good diaphragmatic excursion ABD: soft, non-tender, non-distended, no rebound or guarding EXTREMITY: RP and DP palpable 2+ bilat, trace swelling bilaterally, extremities are warm and well-perfused NEURO: CN 2-12 grossly intact MUSC: moves all extremities equally, no gross focal deficits. SKIN: warm and dry Laboratory Results: 11/26/17 06:12 11/26/17 06:12 Test 11/24/17 14:25 11/24/17 14:31 11/24/17 22:40 11/25/17 05:58 Total Bilirubin 1.3 mg/dl (0.2-1) Direct Bilirubin 0.6 mg/dl (0-0.2) Aspartate Amino Transf (AST/SGOT) 17 U/L (15-37) Alanine Aminotransferase (ALT/SGPT) 17 U/L (12-78) Alkaline Phosphatase 48 U/L (45-117) Total Protein 7.4 gm/dl (6.4-8.2) Albumin 3.4 gm/dl (3.4-5.0) Lipase 107 U/L (73-393) Bedside Lactic Acid Venous 1.42 mmol/L (0.90-1.70) Urine Color DK YELLOW Urine Appearance CLEAR (CLEAR) Urine pH 5.0 (4.5-7.5) Urine Specific [place] 1.022 (1.000-1.030) Urine Protein NEG (NEG) Urine Glucose (UA) NEG (NEG) Urine Ketones NEG (NEG) Urine Occult Blood NEG (NEG) Urine Nitrite NEG (NEG) Urine Bilirubin NEG (NEG) Urine Urobilinogen NEG (NEG) Urine Leukocyte Esterase NEG (NEG) Urine WBC (Auto) 1-5 /hpf (0-5) Urine RBC (Auto) 0-4 /hpf (0-4) Urine Hyaline Casts (Auto) 10-30 /lpf (0-5) Urine Epithelial Cells (Auto) 5-10 /lpf (0-5) Urine Bacteria (Auto) NEG (NEG) Urine Pathogenic Casts /lpf (0) Platelet Estimate SIGNIFIC DECREASED Test 11/25/17 17:15 11/25/17 21:20 11/25/17 23:17 11/26/17 06:12 Mean Platelet Volume 12.0 fL (7.4-10.4) Prothrombin Time 12.0 SECONDS (9.0-12.0) Prothromb Time International Ratio 1.1 (0.9-1.1) Thyroid Stimulating Hormone (TSH) 0.170 uIu/ml (0.300-4.500) Bedside Glucose 164 mg/dl (70-99) Lactic Acid Level 1.1 mmol/L (0.4-2.0) Total Creatine Kinase 30 U/L (39-308) Creatine Kinase MB 0.7 ng/ml (0.5-3.6) Creatine Kinase MB Ratio 2.3 (0-3.0) Troponin I < 0.015 ng/ml (0-0.045) Red Blood Count 2.36 M/uL (4.7-6.1) Mean Corpuscular Volume 84.7 fL (80-100) Mean Corpuscular Hemoglobin 28.0 pg (25-34) Mean Corpuscular Hemoglobin Concent 33.0 g/dl (32-36) RDW Standard Deviation 45.5 fL (36.4-46.3) RDW Coefficient of Variation 15.0 % (11.5-14.5) Anion Gap 9.0 mmol/L (3-11) Est Creatinine Clear Calc Drug Dose 113.4 ml/min Estimated GFR () 111.8 Estimated GFR (Non- 96.5 BUN/Creatinine Ratio 20.1 (10-20) Calcium Level 7.6 mg/dl (8.5-10.1) Phosphorus Level 1.4 mg/dl (2.5-4.9) Magnesium Level 2.3 mg/dl (1.8-2.4) Date/Time Source Procedure Growth Status 11/25/17 17:15 Blood Blood Culture Pending Received 11/25/17 17:20 Sputum Expectorated Sputum Gram Stain - Final Resulted 11/25/17 17:20 Sputum Expectorated Sputum Sputum Culture - Preliminary Resulted Last 24 Hours Test 11/25/17 16:37 11/25/17 17:15 11/25/17 21:20 11/25/17 23:17 Creatine Kinase MB Ratio 3.1 2.3 White Blood Count 0.25 K/uL Red Blood Count 2.57 M/uL Hemoglobin 7.3 g/dL Hematocrit 21.8 % Mean Corpuscular Volume 84.8 fL Mean Corpuscular Hemoglobin 28.4 pg Mean Corpuscular Hemoglobin Concent 33.5 g/dl RDW Standard Deviation 46.1 fL RDW Coefficient of Variation 15.0 % Platelet Count 14 K/uL Mean Platelet Volume 12.0 fL Prothrombin Time 12.0 SECONDS Prothromb Time International Ratio 1.1 Sodium Level 134 mmol/L Potassium Level 4.2 mmol/L Chloride Level 103 mmol/L Carbon Dioxide Level 22 mmol/L Anion Gap 9.0 mmol/L Blood Urea Nitrogen 20 mg/dl Creatinine 1.24 mg/dl Est Creatinine Clear Calc Drug Dose 77.8 ml/min Estimated GFR () 74.9 Estimated GFR (Non- 64.6 BUN/Creatinine Ratio 16.4 Random Glucose 168 mg/dl Lactic Acid Level 2.4 mmol/L 1.1 mmol/L Calcium Level 8.3 mg/dl Phosphorus Level 2.2 mg/dl Magnesium Level 2.4 mg/dl Total Creatine Kinase 26 U/L 30 U/L Creatine Kinase MB 0.8 ng/ml 0.7 ng/ml Troponin I < 0.015 ng/ml < 0.015 ng/ml Thyroid Stimulating Hormone (TSH) 0.170 uIu/ml Bedside Glucose 164 mg/dl Test 11/26/17 06:12 White Blood Count 0.32 K/uL Red Blood Count 2.36 M/uL Hemoglobin 6.6 g/dL Hematocrit 20.0 % Mean Corpuscular Volume 84.7 fL Mean Corpuscular Hemoglobin 28.0 pg Mean Corpuscular Hemoglobin Concent 33.0 g/dl RDW Standard Deviation 45.5 fL RDW Coefficient of Variation 15.0 % Platelet Count 7 K/uL Sodium Level 137 mmol/L Potassium Level 3.8 mmol/L Chloride Level 106 mmol/L Carbon Dioxide Level 22 mmol/L Anion Gap 9.0 mmol/L Blood Urea Nitrogen 17 mg/dl Creatinine 0.87 mg/dl Est Creatinine Clear Calc Drug Dose 113.4 ml/min Estimated GFR () 111.8 Estimated GFR (Non- 96.5 BUN/Creatinine Ratio 20.1 Random Glucose 113 mg/dl Calcium Level 7.6 mg/dl Phosphorus Level 1.4 mg/dl Magnesium Level 2.3 mg/dl Date/Time Source Procedure Growth Status 11/25/17 17:15 Blood Blood Culture Pending Received 11/25/17 17:01 Blood Blood Culture Pending Received 11/25/17 17:20 Sputum Expectorated Sputum Gram Stain - Final Resulted 11/25/17 17:20 Sputum Expectorated Sputum Sputum Culture - Preliminary Resulted Assessment & Plan 57 yo M with lung cancer on XRT and chemo presents with intolerance to PO and nausea with vomiting. More intolerant to PO today. HR is down into the one- teens. Has some increased epistaxis in the R nose. Platelets are 7 today and he is more anemic, also. States that the dilaudid is not working for him and neither is the Lortab elixir. He is asking for the Fentanyl patch back that he was using as an outpatient. Additionally, he reports that he is really done with all of this and is interested in speaking to the Palliative Care team to understand what that means. I have placed a consult for this. Although he was counseled that NPO was the recommendation until the video swallow tomorrow, however, he states that he understands the risks of aspiration and he would still like to continue trying clear liquids, juices and Gatorade for some nutrition. 1. 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 Pt reports that he realizes he may be aspirating but prefers to stick to the clears to give himself some caloric intake. Paginator saw him today and recommended Speech Path eval along with GI eval for PEG vs TPN. Cont supportive care. Palliative care consult after short discussion with patient. 2. Sepsis-unknown etiology but sinus infection is a possibility. He appears clinically improved and his persistent tachycardia may be a combination of dehydration from poor PO intake vs hyperthyroidism vs his severe anemia. Will cont with the antibiotics for now pending cultures. Will plan to give blood and platelets and then reassess heart rate. Cont Lopressor 5 q6 IV for now. Cont to hold lisinopril and diuretics. 3. GENE-resolved, cont IVF 4. Neutropenia/pancytopenia 2/2 chemo. Cont neutropenic precautions. Filgrastim x 3 days per Oncology who is following his progress in the hospital. Worsened anemia and thrombocytopenia with epistaxis. Transfuse platelets and 2 units pRBCs this morning (irradiated). Will repeat CBC post transfusions. 5. Hypophosphatemia 2.2 poor PO intake. Cont IV thiamine per diet recs. IV phos ordered 6. Hypocalcemia-replace IV 7. Small Cell Lung Cancer -cont per Oncology. Considering outpatient triple phase CT to better visualize liver findings. 8. Afib w RVR 2/2 sepsis and dehydration above along with intolerance of pills including his Toprol. Cont IVF and hemodynamica support with blood products this morning then reassess heart rate. Eliquis on hold in setting of <20K platelet count and significant anemia. This was discussed with Oncology. DVT proph-contraindicated, SCD DNR dispo-hospital for the next 2-3 days. Palliative care consult to discuss options. Video swallow tomorrow. GI to discuss PEG vs TPN at this time. DO Mimi Lopezbrennan Hospitalist Consultants: [facility] Current Inpatient Medications: Current Inpatient Medications Medications (Trade) Dose Ordered Sig/Elizabeth Route Start Time Stop Time Status Last Admin Dose Admin Cyclobenzaprine HCl (Flexeril Tab) 10 mg HS PRN PO 11/24/17 17:15 12/24/17 17:14 Eszopiclone (Lunesta Tab) 1 mg HS PRN PO 11/24/17 17:15 12/24/17 17:14 Nitroglycerin (Nitrostat Tab) 0.4 mg UD PRN SL 11/24/17 17:15 12/24/17 17:14 Oxycodone HCl (Roxicodone Immediate Rel Tab) 5 mg Q4H PRN PO 11/24/17 17:15 12/08/17 17:14 11/26/17 05:06 5 MG Apixaban (Eliquis Tab) 5 mg BID PO 11/24/17 20:00 12/24/17 20:59 Future Hold 11/24/17 19:49 5 MG Cholecalciferol (Vitamin D Tab) 2,000 inter.unit DAILY PO 11/25/17 08:00 12/25/17 08:59 11/25/17 07:56 2,000 INTER.UNIT Ferrous Sulfate (Feosol Tab) 325 mg DAILY PO 11/25/17 08:00 12/25/17 08:59 11/25/17 07:56 325 MG Magnesium Oxide (Mag-Ox Tab) 400 mg Q2D@0900 PO 11/25/17 09:00 12/25/17 08:59 11/25/17 07:51 400 MG Filgrastim (Neupogen Sq) 480 mcg DAILY SC 11/25/17 08:00 11/26/17 12:00 11/25/17 08:03 480 MCG Sodium Chloride 1,000 ml @ 100 mls/hr Q10H IV 11/24/17 17:15 12/24/17 17:14 Future hold 11/25/17 23:45 100 MLS/HR Hydromorphone HCl (Dilaudid Inj) 0.5 mg Q3H PRN IV 11/24/17 21:15 12/08/17 21:14 11/26/17 07:28 0.5 MG Ondansetron HCl (Zofran Inj) 4 mg Q6H IV 11/25/17 17:00 12/24/17 16:59 11/26/17 05:08 4 MG Thiamine HCl 100 mg/Syringe 10 ml @ 2 mls/min BID IV 11/25/17 20:00 11/30/17 19:59 11/26/17 09:11 2 MLS/MIN Acetaminophen/ Hydrocodone Bitart (Lortab Elixir) 15 ml TIDM PRN PO 11/25/17 16:30 12/09/17 16:29 11/25/17 19:12 15 ML Lidocaine HCl (Viscous Lidocaine 2% Soln) 20 ml Q6H PRN MT 11/25/17 16:30 12/25/17 16:29 Polyethylene (Miralax Powder Packet) 17 gm BID PO 11/25/17 20:00 12/25/17 19:59 11/25/17 21:10 17 GM Vancomycin HCl (Consult) 1 ea UD PRN N/A 11/25/17 17:15 12/25/17 17:14 Cefepime HCl 2000 mg/Syringe 20 ml @ 5 mls/min Q8H IV 11/25/17 17:30 12/09/17 17:29 11/26/17 01:17 5 MLS/MIN Cefepime HCl (Consult) 1 ea UD PRN N/A 11/25/17 17:15 12/25/17 17:14 Metoprolol Tartrate (Lopressor Iv) 5 mg Q6 IV. 11/25/17 18:30 12/25/17 18:29 11/26/17 05:10 5 MG Vancomycin HCl 1500 mg/Sodium Chloride 530 ml @ 200 mls/hr Q12H IV 11/26/17 06:00 12/09/17 05:59 11/26/17 05:07 200 MLS/HR Levothyroxine Sodium 25 mcg/ Syringe 1.25 ml @ 2 mls/min DAILY@09 IV 11/26/17 09:00 12/26/17 08:59 11/26/17 09:11 2 MLS/MIN Calcium Gluconate 2000 mg/Sodium Chloride 70 ml @ 70 mls/hr NOW ONCE IV 11/26/17 09:00 11/26/17 09:59 11/26/17 09:11 70 MLS/HR Sodium Phosphate 30 mmol/Sodium Chloride 510 ml @ 88 mls/hr NOW ONCE IV 11/26/17 09:00 11/26/17 14:47 Fentanyl (Duragesic Patch) 25 mcg Q72H TD 11/26/17 09:45 12/10/17 09:44 UNV Miscellaneous (Fentanyl Patch Remove & Waste) 1 ea Q3D N/A 11/29/17 09:45 12/29/17 09:44 UNV Miscellaneous Information (Check Fentanyl Patch Placement) 1 ea QS N/A 11/26/17 16:00 12/26/17 15:59 UNV Diphenhydramine HCl (Benadryl Inj) 25 mg ONE ONCE IV 11/26/17 09:45 11/26/17 09:46 UNV Acetaminophen 650 mg/Empty Bag 65 ml @ 260 mls/hr Q6H IV 11/26/17 09:45 12/26/17 09:44 UNV
[2017-11-26] MEDS: FILGRASTIM 480 MCG/1.6 ML VIAL SC SCH (10:19)
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
[2017-11-26] MEDS: SODIUM CHLORIDE 0.9% 1000ML 1,000 ML IV SCH ×3 (12:31→19:22)
[2017-11-26] MEDS ORDERED: NALOXONE HCL 0.4 MG/1 ML VIAL/CARP IV PRN (12:45)
[2017-11-26] MEDS: HYDROmorphone HCL 0.5MG/ML 50 ML CASSETTE IV PRN (13:32)
[2017-11-26] MEDS: CHECK FENTANYL PATCH PLACEMENT SCH ×2 (16:07→23:54)
[2017-11-26] MEDS: FLUCONAZOLE / NSS 200 MG in PREMIXED NSS 100 ML IV SCH (16:42)
[2017-11-26 21:13] LABS: INR 1.1 (0.9-1.1); PTT PATIENT 29.2 SECONDS (21.0-31.0)
[2017-11-26 21:30] LABS: HEMATOCRIT 23.1 % (42-52); HEMOGLOBIN 7.9 g/dL (14.0-18.0); MEAN CELL VOLUME 84.9 fL (80-100); MEAN CORPUSCULAR HGB CONC 34.2 g/dl (32-36); MEAN PLATELET VOLUME 10.4 fL (7.4-10.4); PLATELET COUNT 16 K/uL (130-400); RED CELL DISTRIBUTION WIDTH CV 14.6 % (11.5-14.5); RED CELL DISTRIBUTION WIDTH SD 44.7 fL (36.4-46.3); WHITE BLOOD COUNT 0.57 K/uL (4.8-10.8)
[2017-11-27] VITALS (21 sets, daily range): BP systolic 86–125; BP diastolic 57–83; PULSE 90–118; TEMP 36.4–36.9; O2SAT 92–100
[2017-11-27 01:08] LABS: PLATELET COUNT 22 K/uL (130-400)
[2017-11-27] MEDS: CEFEPIME IV 2,000 MG in SYRINGE 7.5 ML IV SCH ×3 (02:32→18:09)
[2017-11-27] MEDS ORDERED: VANCOMYCIN TROUGH ONE ×2 (05:30→17:30)
[2017-11-27] MEDS: ONDANSETRON INJ 2 MG/ML 2 ML VIAL IV SCH ×3 (05:57→18:08)
[2017-11-27] MEDS: VANCOMYCIN INJ 1,500 MG in SODIUM CHLORIDE 0.9% 500ML 500 ML IV SCH ×2 (05:57→16:23)
[2017-11-27] MEDS: METOPROLOL TARTRATE 1 MG/ML VIAL IV. SCH ×3 (05:58→18:09)
[2017-11-27] MEDS: SODIUM CHLORIDE 0.9% 1000ML 1,000 ML IV SCH ×2 (05:58→19:56)
[2017-11-27 06:13] LABS: HEMATOCRIT 20.5 % (42-52); HEMOGLOBIN 6.9 g/dL (14.0-18.0); MEAN CORPUSCULAR HEMOGLOBIN 28.3 pg (25-34); MEAN CORPUSCULAR HGB CONC 33.7 g/dl (32-36); MEAN PLATELET VOLUME 9.3 fL (7.4-10.4); PLATELET COUNT 34 K/uL (130-400); RED CELL DISTRIBUTION WIDTH CV 14.4 % (11.5-14.5); RED CELL DISTRIBUTION WIDTH SD 43.8 fL (36.4-46.3)
[2017-11-27 06:15] LABS: WHITE BLOOD COUNT 0.65 K/uL (4.8-10.8)
[2017-11-27 06:33] LABS: CALCIUM 7.7 mg/dl (8.5-10.1); CREATININE 0.64 mg/dl (0.60-1.40); PHOSPHORUS 1.6 mg/dl (2.5-4.9); POTASSIUM 3.6 mmol/L (3.5-5.1)
[2017-11-27] MEDS: CHECK FENTANYL PATCH PLACEMENT SCH ×3 (08:00→23:48)
[2017-11-27] MEDS: FERROUS SULFATE 325 MG TAB PO SCH (08:58)
[2017-11-27] MEDS: POLYETHYLENE (MIRALAX) 17 GM PACK PO SCH ×2 (08:58→20:01)
[2017-11-27] MEDS: CHOLECALCIFEROL 1000 INTER.UNIT TAB PO SCH (08:58)
[2017-11-27] MEDS: MAGNESIUM OXIDE 400 MG TAB PO SCH (08:58)
[2017-11-27] MEDS: LEVOTHYROXINE SODIUM INJ 25 MCG in SYRINGE 0 ML IV SCH (09:16)
[2017-11-27] MEDS: THIAMINE HCL INJ 100 MG in SYRINGE 9 ML IV SCH ×2 (09:17→20:02)
[2017-11-27] MEDS ORDERED: POTASSIUM PHOS 3 MMOL/1 ML INFUSION IV STA (09:54)
[2017-11-27] MEDS ORDERED: POTASSIUM PHOSPHATE INJ 15 MMOL in SODIUM CHLORIDE 0.9% 250ML 250 ML IV ONE (10:30)
--- NOTE | 2017-11-27 10:42 | Progress Note ---
Subjective Date of Service: Nov 27, 2017. Subjective Pt evaluation today including: conversation w/ patient, physical exam, lab review, review of studies, conversation w/ managed services consultant, review of inpatient medication list Saw/examined the patient in room 208 He's doing well, tolerated breakfast; clear liquids States he has some chest burning when he swallows Denies significant shortness of breath, denies palpitations HRs in the 130s-140s during my exam Had epistaxis yesterday which has since stopped overnight Problem List Medical Problems: (1) Abdominal pain Status: Chronic (2) Anticoagulants,Lt,Current Use Status: Chronic (3) Atrial fibrillation Status: Chronic (4) Bowel obstruction Status: Acute (5) Congestive Heart Failure Nos Status: Chronic (6) Coronary Atherosclerosis Of [place] Coronary Vessel Status: Chronic (7) Dehydration Status: Acute (8) Diabetes mellitus type 2 Status: Chronic (9) Hyperlipidemia Status: Chronic (10) Hypertensive disorder, systemic arterial Status: Chronic (11) Hypothyroidism Status: Chronic (12) Obstructive Sleep Apnea (Adult) (Pediatric) Status: Chronic (13) Renal insufficiency Status: Chronic (14) Right lumbar radiculitis Status: Acute (15) SOB (shortness of breath) Status: Acute (16) Substernal chest pain Status: Acute (17) Upper abdominal pain Status: Acute (18) Vomiting Status: Acute Review of Systems Constitutional: + weakness, No fever, No chills ENT: + unusual epistaxis (resolved), + trouble swallowing Respiratory: No cough, No sputum, No wheezing, No shortness of breath, No dyspnea on exertion, No dyspnea at rest Cardiac: + chest pain, No palpitations Abdomen: No pain, No nausea, No vomiting, No diarrhea Heme: + abnormal bleeding/bruising (resolved epistaxis) Medications Current Inpatient Medications Medications (Trade) Dose Ordered Sig/Elizabeth Route Start Time Stop Time Status Last Admin Dose Admin Cyclobenzaprine HCl (Flexeril Tab) 10 mg HS PRN PO 11/24/17 17:15 12/24/17 17:14 Eszopiclone (Lunesta Tab) 1 mg HS PRN PO 11/24/17 17:15 12/24/17 17:14 Nitroglycerin (Nitrostat Tab) 0.4 mg UD PRN SL 11/24/17 17:15 12/24/17 17:14 Cholecalciferol (Vitamin D Tab) 2,000 inter.unit DAILY PO 11/25/17 08:00 12/25/17 08:59 11/25/17 07:56 2,000 INTER.UNIT Ferrous Sulfate (Feosol Tab) 325 mg DAILY PO 11/25/17 08:00 12/25/17 08:59 11/25/17 07:56 325 MG Magnesium Oxide (Mag-Ox Tab) 400 mg Q2D@0900 PO 11/25/17 09:00 12/25/17 08:59 11/25/17 07:51 400 MG Sodium Chloride 1,000 ml @ 100 mls/hr Q10H IV 11/24/17 17:15 12/24/17 17:14 Future hold 11/27/17 05:58 100 MLS/HR Hydromorphone HCl (Dilaudid Inj) 0.5 mg Q3H PRN IV 11/24/17 21:15 12/08/17 21:14 11/26/17 12:01 0.5 MG Ondansetron HCl (Zofran Inj) 4 mg Q6H IV 11/25/17 17:00 12/24/17 16:59 11/27/17 05:57 4 MG Thiamine HCl 100 mg/Syringe 10 ml @ 2 mls/min BID IV 11/25/17 20:00 11/30/17 19:59 11/27/17 09:17 2 MLS/MIN Acetaminophen/ Hydrocodone Bitart (Lortab Elixir) 15 ml TIDM PRN PO 11/25/17 16:30 12/09/17 16:29 11/25/17 19:12 15 ML Lidocaine HCl (Viscous Lidocaine 2% Soln) 20 ml Q6H PRN MT 11/25/17 16:30 12/25/17 16:29 11/26/17 13:39 20 ML Polyethylene (Miralax Powder Packet) 17 gm BID PO 11/25/17 20:00 12/25/17 19:59 11/26/17 21:08 17 GM Vancomycin HCl (Consult) 1 ea UD PRN N/A 11/25/17 17:15 12/25/17 17:14 Cefepime HCl 2000 mg/Syringe 20 ml @ 5 mls/min Q8H IV 11/25/17 17:30 12/09/17 17:29 11/27/17 09:29 5 MLS/MIN Cefepime HCl (Consult) 1 ea UD PRN N/A 11/25/17 17:15 12/25/17 17:14 Metoprolol Tartrate (Lopressor Iv) 5 mg Q6 IV. 11/25/17 18:30 12/25/17 18:29 11/26/17 23:54 5 MG Vancomycin HCl 1500 mg/Sodium Chloride 530 ml @ 200 mls/hr Q12H IV 11/26/17 06:00 12/09/17 05:59 11/27/17 05:57 200 MLS/HR Levothyroxine Sodium 25 mcg/ Syringe 1.25 ml @ 2 mls/min DAILY@09 IV 11/26/17 09:00 12/26/17 08:59 11/27/17 09:16 2 MLS/MIN Fentanyl (Duragesic Patch) 25 mcg Q3D@1000 TD 11/26/17 10:00 12/10/17 09:59 11/26/17 10:22 25 MCG Miscellaneous (Fentanyl Patch Remove & Waste) 1 ea Q3D@1000 N/A 11/29/17 10:00 12/29/17 09:59 Miscellaneous Information (Check Fentanyl Patch Placement) 1 ea QS N/A 11/26/17 16:00 12/26/17 15:59 11/27/17 08:00 1 EA Naloxone HCl (Narcan Inj) 0.1 mg Q5M PRN IV 11/26/17 12:45 12/26/17 12:44 Hydromorphone HCl (Dilaudid [employer]) 25 mg PRN PRN IV 11/26/17 12:45 12/10/17 12:44 11/26/17 13:32 25 MG Sodium Chloride 1,000 ml @ 15 mls/hr Q24H IV 11/26/17 12:31 12/26/17 12:30 Fluconazole/ Sodium Chloride 200 mg/Prmx 100 ml @ 100 mls/hr DAILY@1600 IV 11/27/17 16:00 12/05/17 16:59 Objective Vital Signs Date Time Temp Pulse Resp B/P (MAP) Pulse Ox O2 Delivery O2 Flow Rate FiO2 11/27/17 08:27 36.8 118 25 105/70 (82) 92 Room Air 1/2/18 05:58 96/70 11/27/17 04:50 36.5 102 17 102/71 96 11/27/17 04:00 96 Room Air 11/27/17 04:00 36.4 105 18 99/68 95 11/27/17 04:00 36.4 105 18 99/68 (78) 95 Room Air 11/27/17 03:30 36.5 101 20 105/71 98 11/27/17 03:15 36.4 98 18 114/80 97 11/27/17 00:00 99 Room Air 11/26/17 23:54 106 124/58 11/26/17 23:29 36.3 100 17 121/75 (90) 100 Room Air 11/26/17 22:45 36.6 105 20 102/75 100 0.0 11/26/17 22:30 36.3 108 20 108/70 100 0.0 11/26/17 22:27 36.3 104 16 108/70 100 0.0 11/26/17 20:17 36.8 108 20 108/72 (84) 100 Room Air 0.0 11/26/17 20:00 Room Air 11/26/17 19:45 36.9 110 20 105/72 (83) 100 Room Air 0.0 11/26/17 19:00 36.8 112 16 105/68 100 11/26/17 18:45 36.8 100 20 106/72 (83) 100 Room Air 0.0 11/26/17 18:45 112 11/26/17 18:30 102 11/26/17 18:15 36.8 99 16 101/63 (76) 100 Room Air 0.0 11/26/17 18:15 36.9 105 20 110/72 (85) 100 Room Air 0.0 11/26/17 18:00 36.8 115 18 116/68 100 11/26/17 17:50 36.8 112 16 105/70 (82) 100 Room Air 0.0 11/26/17 17:30 36.8 108 18 108/65 (79) 100 Room Air 0.0 11/26/17 17:30 36.8 111 18 108/65 (79) 100 Room Air 0.0 11/26/17 17:20 36.8 110 18 110/65 (80) 100 Room Air 0.0 11/26/17 16:55 110 106/63 11/26/17 16:50 36.8 111 18 106/65 (79) 99 Room Air 0.0 11/26/17 16:20 36.7 16 108/65 (79) 100 Room Air 0.0 11/26/17 16:00 Room Air 11/26/17 15:50 36.7 100 16 107/61 100 11/26/17 15:30 36.5 106 16 96/56 100 0.0 11/26/17 13:30 112 18 92/69 100 11/26/17 13:15 114 18 100/61 100 11/26/17 12:55 36.7 117 18 100/58 99 11/26/17 12:02 121 103/58 11/26/17 12:00 Room Air 11/26/17 11:10 36.6 112 20 103/58 (73) 98 Room Air Physical Exam General Appearance: no apparent distress Respiratory/Chest: no respiratory distress, no accessory muscle use, + decreased breath sounds Cardiovascular: no murmur, + tachycardia, + irregularly irregular Abdomen: normal bowel sounds, non tender, soft Extremities: normal inspection, no pedal edema Neurologic/Psychiatric: no motor/sensory deficits, alert, normal mood/affect Skin: + pertinent finding (petechial rash on L arm) Laboratory Results Last 24 Hours Test 11/26/17 20:45 11/27/17 00:17 11/27/17 05:32 White Blood Count 0.57 K/uL 0.65 K/uL Red Blood Count 2.72 M/uL 2.44 M/uL Hemoglobin 7.9 g/dL 6.9 g/dL Hematocrit 23.1 % 20.5 % Mean Corpuscular Volume 84.9 fL 84.0 fL Mean Corpuscular Hemoglobin 29.0 pg 28.3 pg Mean Corpuscular Hemoglobin Concent 34.2 g/dl 33.7 g/dl Platelet Count 16 K/uL 22 K/uL 34 K/uL Mean Platelet Volume 10.4 fL 9.3 fL RDW Standard Deviation 44.7 fL 43.8 fL RDW Coefficient of Variation 14.6 % 14.4 % Neutrophils % (Manual) 60.0 % 66.7 % Lymphocytes % (Manual) 21.0 % 17.4 % Monocytes % (Manual) 16.0 % 12.9 % Eosinophils % (Manual) 3.0 % 2.0 % Neutrophils # (Manual) 0.34 K/uL 0.43 K/uL Total Absolute Neutrophils 0.34 K/uL 0.43 K/uL Lymphocytes # (Manual) 0.12 K/uL 0.11 K/uL Total Absolute Lymphocytes 0.12 K/uL 0.11 K/uL Monocytes # (Manual) 0.09 K/uL 0.08 K/uL Eosinophils # (Manual) 0.02 K/uL 0.01 K/uL Percent Large Granular Lymphocytes 0.0 % Other Cell Type 0.0 % Toxic Granulation 2+ 2+ Platelet Estimate SIGNIFIC DECREASED DECREASED Ovalocytes 1+ Prothrombin Time 11.6 SECONDS Prothromb Time International Ratio 1.1 Activated Partial Thromboplast Time 29.2 SECONDS Partial Thromboplastin Ratio 1.1 Myelocytes % 1.0 % Myelocytes # 0.01 K/uL Spherocytes 1+ Sodium Level 137 mmol/L Potassium Level 3.6 mmol/L Chloride Level 107 mmol/L Carbon Dioxide Level 24 mmol/L Anion Gap 7.0 mmol/L Blood Urea Nitrogen 10 mg/dl Creatinine 0.64 mg/dl Est Creatinine Clear Calc Drug Dose 154.2 ml/min Estimated GFR () 126.9 Estimated GFR (Non- 109.5 BUN/Creatinine Ratio 14.8 Random Glucose 96 mg/dl Calcium Level 7.7 mg/dl Phosphorus Level 1.6 mg/dl Magnesium Level 2.1 mg/dl Vancomycin Level Trough 11.0 mcg/ml Assessment and Plan This is a 57 year old male with a PMH of small cell lung carcinoma with ongoing chemo and radiation tx., chronic atrial fibrillation on Eliquis, diastolic CHF, CKD stage 3 - presents with difficulty and painful swallowing likely secondary to radiation induced esophagitis Radiation-Induced Esophagitis he is a clear aspiration risk; occasional coughing episodes while eating tolerated clears - and he is requested more of a full liquid diet, which I will order GI consult appreciated - discussed PEG tube options - patient is thinking about it, though leaning against this Diflucan in case candidal esophagitis is a possibility continue pain medications including Fentanyl patch and Dilaudid PRN viscous lidocaine PRN Pancytopenia/Chemo-Induced Neutropenia patient presents with pancytopenia, including thrombocytopenia, neutropenia and anemia patient has received 3 units of platelets and 2 units of pRBCs so far he had some epistaxis yesterday, likely secondary to low platelets, which have come up today (11/27/17) Filgrastim x3 days, now completed Eliquis d/c'd Hgb is now low at 6.9; platelets improving will transfuse another 2 units of pRBCs - recheck H/H four hours post- transfusion Chronic Atrial Fibrillation patient with chronic A. fib, rates are currently elevated ranging from 100s-130s not tolerated PO b-christian well; continue IV Lopressor PRN will transfuse two more units of pRBCs and monitor HRs no anticoagulation due to pancytopenia/anemia and epistaxis SIRS criteria meets SIRS secondary to tachycardia and neutropenia likely not infectious, though aspiration pneumonia is a risk for now, will continue Cefepime and Vanco preliminary blood cultures negative, will await final cultures Acute Kidney Injury creatinine 1.45 on admission given IVFs and creat improved will advance diet and monitor creatinine Electrolyte Imbalances low phos, Mg, and calcium given Mg, which is now wnl will replace phos and recheck in AM DVT ppx SCDs DNR palliative care consult pending
--- NOTE | 2017-11-27 11:04 | Pharmacy Progress Note ---
Pharmacy Abx Dose Short Note Date of Service Nov 27, 2017. Assessment & Plan Assessment * 57 year old male receiving vancomycin 1500mg IV Q 12 hours and cefepime 2000mg IV Q 8 hours for treatment of febrile neutropenia, possible aspiration pneumonia * Day # 3 of antimicrobial therapy * Multiple risk factors for resistant organism: recent hospitalization and abx therapy, chemotherapy, pancytopenia, T2DM * Blood cultures remain negative, sputum grew heavy normal rao * 11/24 CXR: * Resolution of previously noted left basilar opacity. Minimal right basilar opacity persists. Resolution of left pleural effusion. * Currently afebrile, WBC and neutrophils still low but improving, WBC 640 and neut 430 today * Renal fxn improving: SCr 1.14 --> 0.87 -->0.64 Plan Vancomycin * Trough level of 11 mcg/mL is subtherapeutic. This level was drawn at the appropriate time and other doses were hung on schedule. This level was drawn prior to achieving steady-state and would likely increase with repeat dosing, however I question if level would climb to goal at steady-state. Shortening the dosing interval slightly will help ensure higher trough. * Change to 1500 mg (~15mg/kg) IV every 10 hours * Goal trough level for febrile neutropenia w/ possible pulm infxn : 15 to 20 mcg/mL * Trough level ordered for: 11/28/17 w/ 4th dose of new regimen Cefepime * eCrCl > 100cc/min, continue 2gm Q 8 hours Pharmacy will continue to follow and will adjust dose/frequency as necessary. Thank you.
--- NOTE | 2017-11-27 11:18 | Gastroenterology Progress Note ---
Progress Note Date of Service: Nov 27, 2017 Subjective Pt evaluation today including: conversation w/ patient, physical exam, chart review, lab review, review of studies, review of inpatient medication list Ms. Glasgow is a 57 yr old male patient with lung cancer, undergoing XRT most recently 11/22, who experienced dysphagia in the setting of neutropenia and thrombocytopenia. On Carafate, empiric tx of esophageal candidiasis. Avoiding endoscopy due to neutropenia, thrombocytopenia. Review of Systems Constitutional: No fever ENT: No hearing loss Respiratory: No cough Cardiac: No chest pain Abdomen: + pain (moderate lower retrosternal pain with swallowing but pt tells me this is much improved compared to yesterday), No nausea, No vomiting, No diarrhea, No constipation, No GI bleeding Male : No dysuria Neuro: No memory loss Psych: No depression symptoms Endo: + fatigue Skin: No rash Medications Current Inpatient Medications Medications (Trade) Dose Ordered Sig/Elizabeth Route Start Time Stop Time Status Last Admin Dose Admin Cyclobenzaprine HCl (Flexeril Tab) 10 mg HS PRN PO 11/24/17 17:15 12/24/17 17:14 Eszopiclone (Lunesta Tab) 1 mg HS PRN PO 11/24/17 17:15 12/24/17 17:14 Nitroglycerin (Nitrostat Tab) 0.4 mg UD PRN SL 11/24/17 17:15 12/24/17 17:14 Cholecalciferol (Vitamin D Tab) 2,000 inter.unit DAILY PO 11/25/17 08:00 12/25/17 08:59 11/25/17 07:56 2,000 INTER.UNIT Ferrous Sulfate (Feosol Tab) 325 mg DAILY PO 11/25/17 08:00 12/25/17 08:59 11/25/17 07:56 325 MG Magnesium Oxide (Mag-Ox Tab) 400 mg Q2D@0900 PO 11/25/17 09:00 12/25/17 08:59 11/25/17 07:51 400 MG Hydromorphone HCl (Dilaudid Inj) 0.5 mg Q3H PRN IV 11/24/17 21:15 12/08/17 21:14 11/26/17 12:01 0.5 MG Ondansetron HCl (Zofran Inj) 4 mg Q6H IV 11/25/17 17:00 12/24/17 16:59 11/27/17 05:57 4 MG Thiamine HCl 100 mg/Syringe 10 ml @ 2 mls/min BID IV 11/25/17 20:00 11/30/17 19:59 11/27/17 09:17 2 MLS/MIN Acetaminophen/ Hydrocodone Bitart (Lortab Elixir) 15 ml TIDM PRN PO 11/25/17 16:30 12/09/17 16:29 11/25/17 19:12 15 ML Lidocaine HCl (Viscous Lidocaine 2% Soln) 20 ml Q6H PRN MT 11/25/17 16:30 12/25/17 16:29 11/26/17 13:39 20 ML Polyethylene (Miralax Powder Packet) 17 gm BID PO 11/25/17 20:00 12/25/17 19:59 11/26/17 21:08 17 GM Vancomycin HCl (Consult) 1 ea UD PRN N/A 11/25/17 17:15 12/25/17 17:14 Cefepime HCl 2000 mg/Syringe 20 ml @ 5 mls/min Q8H IV 11/25/17 17:30 12/09/17 17:29 11/27/17 09:29 5 MLS/MIN Cefepime HCl (Consult) 1 ea UD PRN N/A 11/25/17 17:15 12/25/17 17:14 Metoprolol Tartrate (Lopressor Iv) 5 mg Q6 IV. 11/25/17 18:30 12/25/17 18:29 11/26/17 23:54 5 MG Levothyroxine Sodium 25 mcg/ Syringe 1.25 ml @ 2 mls/min DAILY@09 IV 11/26/17 09:00 12/26/17 08:59 11/27/17 09:16 2 MLS/MIN Fentanyl (Duragesic Patch) 25 mcg Q3D@1000 TD 11/26/17 10:00 12/10/17 09:59 11/26/17 10:22 25 MCG Miscellaneous (Fentanyl Patch Remove & Waste) 1 ea Q3D@1000 N/A 11/29/17 10:00 12/29/17 09:59 Miscellaneous Information (Check Fentanyl Patch Placement) 1 ea QS N/A 1/1/18 16:00 12/26/17 15:59 11/27/17 08:00 1 EA Naloxone HCl (Narcan Inj) 0.1 mg Q5M PRN IV 11/26/17 12:45 12/26/17 12:44 Hydromorphone HCl (Dilaudid [employer]) 25 mg PRN PRN IV 11/26/17 12:45 12/10/17 12:44 11/26/17 13:32 25 MG Sodium Chloride 1,000 ml @ 15 mls/hr Q24H IV 11/26/17 12:31 12/26/17 12:30 Fluconazole/ Sodium Chloride 200 mg/Prmx 100 ml @ 100 mls/hr DAILY@1600 IV 11/27/17 16:00 12/05/17 16:59 Pantoprazole Sodium 40 mg/ Syringe 10 ml @ 5 mls/min DAILY@09,21 IV 11/27/17 21:00 12/27/17 20:59 Potassium Phosphate 15 mmol/ Sodium Chloride 255 ml @ 88 mls/hr TODAY@1030 ONCE IV 11/27/17 10:30 11/27/17 13:23 Vancomycin HCl 1500 mg/Sodium Chloride 530 ml @ 200 mls/hr Q10H IV 11/27/17 16:00 12/09/17 05:59 Objective Vital Signs Date Time Temp Pulse Resp B/P (MAP) Pulse Ox O2 Delivery O2 Flow Rate FiO2 11/27/17 08:27 36.8 118 25 105/70 (82) 92 Room Air 11/27/17 05:58 96/70 11/27/17 04:50 36.5 102 17 102/71 96 11/27/17 04:00 96 Room Air 11/27/17 04:00 36.4 105 18 99/68 95 11/27/17 04:00 36.4 105 18 99/68 (78) 95 Room Air 11/27/17 03:30 36.5 101 20 105/71 98 11/27/17 03:15 36.4 98 18 114/80 97 11/27/17 00:00 99 Room Air 11/26/17 23:54 106 124/58 11/26/17 23:29 36.3 100 17 121/75 (90) 100 Room Air 11/26/17 22:45 36.6 105 20 102/75 100 0.0 11/26/17 22:30 36.3 108 20 108/70 100 0.0 11/26/17 22:27 36.3 104 16 108/70 100 0.0 11/26/17 20:17 36.8 108 20 108/72 (84) 100 Room Air 0.0 11/26/17 20:00 Room Air 11/26/17 19:45 36.9 110 20 105/72 (83) 100 Room Air 0.0 11/26/17 19:00 36.8 112 16 105/68 100 11/26/17 18:45 36.8 100 20 106/72 (83) 100 Room Air 0.0 11/26/17 18:45 112 11/26/17 18:30 102 11/26/17 18:15 36.8 99 16 101/63 (76) 100 Room Air 0.0 11/26/17 18:15 36.9 105 20 110/72 (85) 100 Room Air 0.0 11/26/17 18:00 36.8 115 18 116/68 100 11/26/17 17:50 36.8 112 16 105/70 (82) 100 Room Air 0.0 11/26/17 17:30 36.8 108 18 108/65 (79) 100 Room Air 0.0 11/26/17 17:30 36.8 111 18 108/65 (79) 100 Room Air 0.0 11/26/17 17:20 36.8 110 18 110/65 (80) 100 Room Air 0.0 11/26/17 16:55 110 106/63 11/26/17 16:50 36.8 111 18 106/65 (79) 99 Room Air 0.0 11/26/17 16:20 36.7 16 108/65 (79) 100 Room Air 0.0 11/26/17 16:00 Room Air 11/26/17 15:50 36.7 100 16 107/61 100 11/26/17 15:30 36.5 106 16 96/56 100 0.0 11/26/17 13:30 112 18 92/69 100 11/26/17 13:15 114 18 100/61 100 11/26/17 12:55 36.7 117 18 100/58 99 11/26/17 12:02 121 103/58 11/26/17 12:00 Room Air Physical Exam General Appearance: no apparent distress ENT: pharynx normal Neck: no JVD Respiratory/Chest: lungs clear Cardiovascular: regular rate, rhythm, no JVD, no murmur Abdomen: non tender, soft Neurologic/Psych: alert, normal mood/affect, oriented x 3 Skin: no jaundice Laboratory Results Last 24 Hours Test 11/26/17 20:45 11/27/17 00:17 11/27/17 05:32 White Blood Count 0.57 K/uL 0.65 K/uL Red Blood Count 2.72 M/uL 2.44 M/uL Hemoglobin 7.9 g/dL 6.9 g/dL Hematocrit 23.1 % 20.5 % Mean Corpuscular Volume 84.9 fL 84.0 fL Mean Corpuscular Hemoglobin 29.0 pg 28.3 pg Mean Corpuscular Hemoglobin Concent 34.2 g/dl 33.7 g/dl Platelet Count 16 K/uL 22 K/uL 34 K/uL Mean Platelet Volume 10.4 fL 9.3 fL RDW Standard Deviation 44.7 fL 43.8 fL RDW Coefficient of Variation 14.6 % 14.4 % Neutrophils % (Manual) 60.0 % 66.7 % Lymphocytes % (Manual) 21.0 % 17.4 % Monocytes % (Manual) 16.0 % 12.9 % Eosinophils % (Manual) 3.0 % 2.0 % Neutrophils # (Manual) 0.34 K/uL 0.43 K/uL Total Absolute Neutrophils 0.34 K/uL 0.43 K/uL Lymphocytes # (Manual) 0.12 K/uL 0.11 K/uL Total Absolute Lymphocytes 0.12 K/uL 0.11 K/uL Monocytes # (Manual) 0.09 K/uL 0.08 K/uL Eosinophils # (Manual) 0.02 K/uL 0.01 K/uL Percent Large Granular Lymphocytes 0.0 % Other Cell Type 0.0 % Toxic Granulation 2+ 2+ Platelet Estimate SIGNIFIC DECREASED DECREASED Ovalocytes 1+ Prothrombin Time 11.6 SECONDS Prothromb Time International Ratio 1.1 Activated Partial Thromboplast Time 29.2 SECONDS Partial Thromboplastin Ratio 1.1 Myelocytes % 1.0 % Myelocytes # 0.01 K/uL Spherocytes 1+ Sodium Level 137 mmol/L Potassium Level 3.6 mmol/L Chloride Level 107 mmol/L Carbon Dioxide Level 24 mmol/L Anion Gap 7.0 mmol/L Blood Urea Nitrogen 10 mg/dl Creatinine 0.64 mg/dl Est Creatinine Clear Calc Drug Dose 154.2 ml/min Estimated GFR () 126.9 Estimated GFR (Non- 109.5 BUN/Creatinine Ratio 14.8 Random Glucose 96 mg/dl Calcium Level 7.7 mg/dl Phosphorus Level 1.6 mg/dl Magnesium Level 2.1 mg/dl Vancomycin Level Trough 11.0 mcg/ml Assessment and Plan Mr. Glasgow is a 57 yr old male with (likely) radiation esophagitis, possible candidiasis. Plan: 1. Continue BID PPI x 1 week then daily. Continue candidiasis tx and Carafate. 2. There was some question of possible need for PEG but pt would like to try to swallow pills and foods and does not believe that he will need a PEG. 3. Advance diet to full liquids. I performed a history and physical examination of the patient. I have discussed the patient's case, impression and plan with ANMOL Langford. Her note reflects my findings and plan.Dysphagia symptoms are much improved. Slowly advance diet. Most c/w radiation esophagitis. No need for PEG at this point. Patient should stay on a PPI while undergoing treatment. Andres Romano MD
--- NOTE | 2017-11-27 11:47 | Hematology/Oncology Prog Note ---
Hematology/Onc Progress Note Date of Service Nov 27, 2017. Diagnoses Small Cell lung carcinoma Esophagitis Pancytopenia secondary to chemotherapy and radiation Medications Medications Administered Medications (Trade) Dose Ordered Sig/Elizabeth Route Start Time Stop Time Status Last Admin Dose Admin Sodium Chloride 2,000 ml @ 999 mls/hr Q2H1M STAT IV 11/24/17 14:02 11/24/17 16:07 DC 11/24/17 14:21 999 MLS/HR Ondansetron HCl (Zofran Inj) 4 mg NOW STAT IV 11/24/17 14:02 11/24/17 14:04 DC 11/24/17 14:21 4 MG Morphine Sulfate (MoRPHine SULFATE INJ) 6 mg NOW STAT IV 11/24/17 14:02 11/24/17 14:04 DC 11/24/17 14:22 6 MG Ondansetron HCl (Zofran Inj) 4 mg Q6H PRN IV 11/24/17 17:00 11/25/17 16:37 DC 11/25/17 07:46 4 MG Levothyroxine Sodium (Synthroid Tab) 112 mcg DAILYBB PO 11/25/17 06:30 11/25/17 16:37 DC 11/25/17 07:57 112 MCG Oxycodone HCl (Roxicodone Immediate Rel Tab) 5 mg Q4H PRN PO 11/24/17 17:15 11/26/17 12:31 DC 11/26/17 05:06 5 MG Apixaban (Eliquis Tab) 5 mg BID PO 11/24/17 20:00 11/26/17 12:31 DC 11/24/17 19:49 5 MG Cholecalciferol (Vitamin D Tab) 2,000 inter.unit DAILY PO 11/25/17 08:00 12/25/17 08:59 11/25/17 07:56 2,000 INTER.UNIT Ferrous Sulfate (Feosol Tab) 325 mg DAILY PO 11/25/17 08:00 12/25/17 08:59 11/25/17 07:56 325 MG Lactobacillus Acidophilus (Lactinex Granules Pack) 1 gm BID PEG 11/24/17 20:00 11/24/17 20:30 DC 11/24/17 19:49 1 GM Magnesium Oxide (Mag-Ox Tab) 400 mg Q2D@0900 PO 11/25/17 09:00 12/25/17 08:59 11/25/17 07:51 400 MG Filgrastim (Neupogen Sq) 480 mcg DAILY SC 11/25/17 08:00 11/26/17 12:00 DC 11/26/17 10:19 480 MCG Filgrastim (Neupogen Sq) 480 mcg 1830 ONCE SC 11/24/17 18:30 11/24/17 18:31 DC 11/24/17 20:50 480 MCG Sodium Chloride 1,000 ml @ 100 mls/hr Q10H IV 11/24/17 17:15 11/27/17 10:20 DC 11/27/17 05:58 100 MLS/HR Lactobacillus Acidophilus (Floranex Tab) 4 tab BID PO 11/25/17 08:00 11/25/17 16:43 DC 11/25/17 07:57 4 TAB Hydromorphone HCl (Dilaudid Inj) 0.5 mg Q3H PRN IV 11/24/17 21:15 12/08/17 21:14 11/26/17 12:01 0.5 MG Hydromorphone HCl (Dilaudid Inj) 0.5 mg 2112 ONCE IV 11/24/17 21:12 11/24/17 21:18 DC 11/24/17 21:28 0.5 MG Magnesium Sulfate 4 gm/Sodium Phosphate 15 mmol/ Sodium Chloride 513 ml @ 128 mls/hr 0900 ONCE IV 11/25/17 09:00 11/25/17 13:00 DC 11/25/17 09:34 128 MLS/HR Bisacodyl (Dulcolax Supp) 10 mg STK-MED ONCE .ROUTE 11/25/17 10:21 11/25/17 10:22 DC 11/25/17 10:25 10 MG Ondansetron HCl (Zofran Inj) 4 mg Q6H IV 11/25/17 17:00 12/24/17 16:59 11/27/17 05:57 4 MG Thiamine HCl 100 mg/Syringe 10 ml @ 2 mls/min BID IV 11/25/17 20:00 11/30/17 19:59 11/27/17 09:17 2 MLS/MIN Acetaminophen/ Hydrocodone Bitart (Lortab Elixir) 15 ml TIDM PRN PO 11/25/17 16:30 1/14/18 16:29 11/25/17 19:12 15 ML Lidocaine HCl (Viscous Lidocaine 2% Soln) 20 ml Q6H PRN MT 11/25/17 16:30 12/25/17 16:29 11/26/17 13:39 20 ML Sodium Chloride 1,000 ml @ 999 mls/hr Q1H1M IV 11/25/17 16:30 11/25/17 17:30 DC 11/25/17 16:52 999 MLS/HR Polyethylene (Miralax Powder Packet) 17 gm BID PO 11/25/17 20:00 12/25/17 19:59 11/26/17 21:08 17 GM Cefepime HCl 2000 mg/Syringe 20 ml @ 5 mls/min Q8H IV 11/25/17 17:30 12/09/17 17:29 11/27/17 09:29 5 MLS/MIN Vancomycin HCl 2500 mg/Sodium Chloride 550 ml @ 200 mls/hr TODAY@1745 ONCE IV 11/25/17 17:45 11/25/17 20:29 DC 11/25/17 19:13 200 MLS/HR Metoprolol Tartrate (Lopressor Iv) 5 mg Q6 IV. 11/25/17 18:30 12/25/17 18:29 11/26/17 23:54 5 MG Vancomycin HCl 1500 mg/Sodium Chloride 530 ml @ 200 mls/hr Q12H IV 11/26/17 06:00 11/27/17 10:51 DC 11/27/17 05:57 200 MLS/HR Levothyroxine Sodium 25 mcg/ Syringe 1.25 ml @ 2 mls/min DAILY@09 IV 11/26/17 09:00 12/26/17 08:59 11/27/17 09:16 2 MLS/MIN Sodium Chloride 1,000 ml @ 250 mls/hr Q4H IV 11/25/17 21:00 11/26/17 00:59 DC 11/25/17 21:07 250 MLS/HR Calcium Gluconate 2000 mg/Sodium Chloride 70 ml @ 70 mls/hr NOW ONCE IV 11/26/17 09:00 11/26/17 09:59 DC 11/26/17 09:11 70 MLS/HR Sodium Phosphate 30 mmol/Sodium Chloride 510 ml @ 88 mls/hr NOW ONCE IV 11/26/17 09:00 11/26/17 14:47 DC 11/26/17 10:16 88 MLS/HR Fentanyl (Duragesic Patch) 25 mcg Q3D@1000 TD 11/26/17 10:00 12/10/17 09:59 11/26/17 10:22 25 MCG Miscellaneous Information (Check Fentanyl Patch Placement) 1 ea QS N/A 11/26/17 16:00 12/26/17 15:59 11/27/17 08:00 1 EA Diphenhydramine HCl (Benadryl Inj) 25 mg ONE ONCE IV 11/26/17 09:45 11/26/17 09:46 DC 11/26/17 13:37 25 MG Acetaminophen 650 mg/Empty Bag 65 ml @ 260 mls/hr ONE ONCE IV 11/26/17 10:00 11/26/17 10:14 DC 11/26/17 13:36 260 MLS/HR Hydromorphone HCl (Dilaudid Supervisor [employer]erks) 25 mg PRN PRN IV 11/26/17 12:45 12/10/17 12:44 11/26/17 13:32 25 MG Fluconazole/ Sodium Chloride 200 mg/Prmx 100 ml @ 100 mls/hr TODAY@1600,1700 IV 11/26/17 16:00 11/26/17 17:59 DC 11/26/17 16:42 100 MLS/HR Subjective He states he is able to swallow liquids quite well. In the recent past he is also swallowed soft food. States his nausea is better is afebrile. He denies any headaches. Says his pain is fairly well controlled but he is requiring IV analgesia. Review of Systems: Constitutional: Negative for weight loss, night sweats, or fever Eyes: Negative for event change of vision ENT: Negative for epistaxis, nasal discharge, sore throat, or deafness Cardiovascular: Negative for chest pain, palpitations, dizziness, diaphoresis Respiratory: Negative for new shortness of breath,hemoptysis, or purulent cough Gastrointestinal: Negative for diarrhea, hematemesis, melena, nausea, vomiting , or dyspepsia Integumentary (skin): Negative for rash or jaundice discoloration Genitourinary: Negative for urinary frequency, hematuria, or dysuria Neurological: Negative for weakness, seizure activity, headache, or dizziness Lymphatic/Hematologic: Negative for petechiae, bleeding or new adenopathy Musculoskeletal: Negative for new joint or back pain Allergic/Immunologic: Negative for unusual rash or pruritis. Vital Signs Vital Signs Past 12 Hours Date Time Temp Pulse Resp B/P (MAP) Pulse Ox O2 Delivery O2 Flow Rate FiO2 11/27/17 08:27 36.8 118 25 105/70 (82) 92 Room Air 11/27/17 05:58 96/70 11/27/17 04:50 36.5 102 17 102/71 96 11/27/17 04:00 96 Room Air 11/27/17 04:00 36.4 105 18 99/68 95 11/27/17 04:00 36.4 105 18 99/68 (78) 95 Room Air 11/27/17 03:30 36.5 101 20 105/71 98 11/27/17 03:15 36.4 98 18 114/80 97 11/27/17 00:00 99 Room Air 11/26/17 23:54 106 124/58 Physical Exam Constitutional: vitals are stable. Eyes: Eyes are DANG EOMI without conjuctival erythema or icterus. ENT: External examination was negative for masses. Neck: Negative for masses or palpable thyromegaly Respiratory: Lung sounds were generally clear but decreased bilaterally Cardiovascular: Heart was RRR without significant murmur, gallops aoe rubs Gastrointestinal: No palpable hepatic or splenomegaly. The abdomen was soft with normal bowel sounds. Lymphatic system: there was no palpable peripheral lymphadenopathy Musculoskeletal System: The musculoskeletal system seemed concordant with age. Skin: The skin was negative for jaundice. Neurologic exam: The exam was negative for any focal findings. Deep tendon reflexes were equal and symmetrical. Psychiatric exam: Was essentially negative with normal mood and effect. Extremities: Negative for worsening edema. Laboratory Last 24 Hours Test 11/26/17 20:45 11/27/17 00:17 11/27/17 05:32 White Blood Count 0.57 K/uL 0.65 K/uL Red Blood Count 2.72 M/uL 2.44 M/uL Hemoglobin 7.9 g/dL 6.9 g/dL Hematocrit 23.1 % 20.5 % Mean Corpuscular Volume 84.9 fL 84.0 fL Mean Corpuscular Hemoglobin 29.0 pg 28.3 pg Mean Corpuscular Hemoglobin Concent 34.2 g/dl 33.7 g/dl Platelet Count 16 K/uL 22 K/uL 34 K/uL Mean Platelet Volume 10.4 fL 9.3 fL RDW Standard Deviation 44.7 fL 43.8 fL RDW Coefficient of Variation 14.6 % 14.4 % Neutrophils % (Manual) 60.0 % 66.7 % Lymphocytes % (Manual) 21.0 % 17.4 % Monocytes % (Manual) 16.0 % 12.9 % Eosinophils % (Manual) 3.0 % 2.0 % Neutrophils # (Manual) 0.34 K/uL 0.43 K/uL Total Absolute Neutrophils 0.34 K/uL 0.43 K/uL Lymphocytes # (Manual) 0.12 K/uL 0.11 K/uL Total Absolute Lymphocytes 0.12 K/uL 0.11 K/uL Monocytes # (Manual) 0.09 K/uL 0.08 K/uL Eosinophils # (Manual) 0.02 K/uL 0.01 K/uL Percent Large Granular Lymphocytes 0.0 % Other Cell Type 0.0 % Toxic Granulation 2+ 2+ Platelet Estimate SIGNIFIC DECREASED DECREASED Ovalocytes 1+ Prothrombin Time 11.6 SECONDS Prothromb Time International Ratio 1.1 Activated Partial Thromboplast Time 29.2 SECONDS Partial Thromboplastin Ratio 1.1 Myelocytes % 1.0 % Myelocytes # 0.01 K/uL Spherocytes 1+ Sodium Level 137 mmol/L Potassium Level 3.6 mmol/L Chloride Level 107 mmol/L Carbon Dioxide Level 24 mmol/L Anion Gap 7.0 mmol/L Blood Urea Nitrogen 10 mg/dl Creatinine 0.64 mg/dl Est Creatinine Clear Calc Drug Dose 154.2 ml/min Estimated GFR () 126.9 Estimated GFR (Non- 109.5 BUN/Creatinine Ratio 14.8 Random Glucose 96 mg/dl Calcium Level 7.7 mg/dl Phosphorus Level 1.6 mg/dl Magnesium Level 2.1 mg/dl Vancomycin Level Trough 11.0 mcg/ml Assessment & Plan Pancytopenia secondary to chemotherapy I believe will begin to recover quite soon. Fortunately he has remained afebrile. He states his nausea is better. I think along the way would probably should do a CT of his brain to rule out metastatic disease and I will order that. There have been plans for him to receive radiation therapy at [facility] although he continues to have some reservations about going to that facility. Might be helpful at this point to consult Dr. Yuliet Paul to help with his pain management going forward.
[2017-11-27] MEDS ORDERED: OPTIRAY 320 IV PRN (12:00)
--- NOTE | 2017-11-27 14:42 | DIAGNOSTIC IMAGING REPORT ---
CT HEAD COMBO CT DOSE: 1074.96 mGy.cm TECHNIQUE: Noncontrast images were obtained through the brain in the axial plane. The sequence was repeated following administration of 93 Optiray 320. A dose lowering technique was utilized adhering to the principles of ALARA. HISTORY: SMALL CELL LUNG CARCINOMA evaluate for metastatic disease COMPARISON: None. FINDINGS: No intra or extra-axial mass lesions are visualized. There is no CT evidence of acute cortical infarction. There is no evidence of midline shift. There is no acute hemorrhage. No calvarial fractures are visualized. There are patchy white matter hypodensities likely on a small vessel basis. There is no evidence of pathologic ventricular dilatation. There is no evidence of acute sinusitis. There are bilateral cochlear implants. Postsurgical changes involve the mastoids. There is a right mastoid effusion. There is artifact from the cochlear implant generator battery packs. Postcontrast images reveal no pathologically enhancing masses. IMPRESSION: No acute intracranial findings. No evidence of intracranial metastasis. Electronically signed by: Addison Adler M.D. 11/27/2017 2:40 PM Dictated Date/Time: 11/27/2017 2:38 PM
[2017-11-27] MEDS: FLUCONAZOLE / NSS 200 MG in PREMIXED NSS 100 ML IV SCH (16:23)
[2017-11-27] MEDS ORDERED: SODIUM CHLORIDE 0.65% NA SOLN 45 ML (OCEAN) ONE (18:11)
[2017-11-27] MEDS: PANTOprazole INJ 40 MG in SYRINGE 0 ML IV SCH (20:02)
[2017-11-28] VITALS (7 sets, daily range): BP systolic 101–126; BP diastolic 66–77; PULSE 99–116; TEMP 36.6–37.2; O2SAT 94–98
[2017-11-28] MEDS: METOPROLOL TARTRATE 1 MG/ML VIAL IV. SCH ×4 (00:07→16:04)
[2017-11-28] MEDS: ONDANSETRON INJ 2 MG/ML 2 ML VIAL IV SCH ×5 (00:07→23:10)
[2017-11-28] MEDS: CEFEPIME IV 2,000 MG in SYRINGE 7.5 ML IV SCH (02:00)
[2017-11-28] MEDS: VANCOMYCIN INJ 1,500 MG in SODIUM CHLORIDE 0.9% 500ML 500 ML IV SCH (02:11)
[2017-11-28 06:43] LABS: HEMATOCRIT 24.2 % (42-52); HEMOGLOBIN 8.5 g/dL (14.0-18.0); MEAN CORPUSCULAR HEMOGLOBIN 29.5 pg (25-34); MEAN CORPUSCULAR HGB CONC 35.1 g/dl (32-36); RED CELL DISTRIBUTION WIDTH CV 14.3 % (11.5-14.5); RED CELL DISTRIBUTION WIDTH SD 43.7 fL (36.4-46.3); WHITE BLOOD COUNT 1.26 K/uL (4.8-10.8)
[2017-11-28 07:09] LABS: CALCIUM 7.7 mg/dl (8.5-10.1); CREATININE 0.66 mg/dl (0.60-1.40); POTASSIUM 3.7 mmol/L (3.5-5.1)
[2017-11-28 07:11] LABS: MEAN PLATELET VOLUME 8.8 fL (7.4-10.4); PLATELET COUNT 29 K/uL (130-400)
[2017-11-28] MEDS: CHECK FENTANYL PATCH PLACEMENT SCH ×2 (07:18→15:25)
[2017-11-28 07:22] LABS: PHOSPHORUS 1.7 mg/dl (2.5-4.9)
[2017-11-28] MEDS ORDERED: SODIUM PHOSPHATE 3 MMOL/1 ML INFUSION IV STA (07:32)
[2017-11-28] MEDS ORDERED: SODIUM PHOSPHATE INJ 15 MMOL in SODIUM CHLORIDE 0.9% 250ML 250 ML IV ONE (07:45)
[2017-11-28] MEDS: PANTOprazole INJ 40 MG in SYRINGE 0 ML IV SCH ×2 (08:44→21:39)
[2017-11-28] MEDS: THIAMINE HCL INJ 100 MG in SYRINGE 9 ML IV SCH ×2 (08:44→21:40)
[2017-11-28] MEDS: CHOLECALCIFEROL 1000 INTER.UNIT TAB PO SCH (08:45)
[2017-11-28] MEDS: FERROUS SULFATE 325 MG TAB PO SCH (08:45)
[2017-11-28] MEDS: POLYETHYLENE (MIRALAX) 17 GM PACK PO SCH ×2 (08:45→21:00)
[2017-11-28] MEDS: LEVOTHYROXINE SODIUM INJ 25 MCG in SYRINGE 0 ML IV SCH (08:58)
--- NOTE | 2017-11-28 09:41 | Progress Note ---
Subjective Date of Service: Nov 28, 2017. Subjective Pt evaluation today including: conversation w/ patient, physical exam, lab review, review of studies, review of inpatient medication list Saw/examined the patient in room 208 No acute issues +cough, congestion persist, but improving Denies chest pain +lower extremity edema denies fevers/chills Problem List Medical Problems: (1) Abdominal pain Status: Chronic (2) Anticoagulants,Lt,Current Use Status: Chronic (3) Atrial fibrillation Status: Chronic (4) Bowel obstruction Status: Acute (5) Congestive Heart Failure Nos Status: Chronic (6) Coronary Atherosclerosis Of [place] Coronary Vessel Status: Chronic (7) Dehydration Status: Acute (8) Diabetes mellitus type 2 Status: Chronic (9) Hyperlipidemia Status: Chronic (10) Hypertensive disorder, systemic arterial Status: Chronic (11) Hypothyroidism Status: Chronic (12) Obstructive Sleep Apnea (Adult) (Pediatric) Status: Chronic (13) Renal insufficiency Status: Chronic (14) Right lumbar radiculitis Status: Acute (15) SOB (shortness of breath) Status: Acute (16) Substernal chest pain Status: Acute (17) Upper abdominal pain Status: Acute (18) Vomiting Status: Acute Review of Systems Constitutional: No fever, No chills, No weakness ENT: No unusual epistaxis Respiratory: + cough, + sputum, No wheezing, No shortness of breath, No dyspnea on exertion, No dyspnea at rest, No hemoptysis Cardiac: No chest pain Heme: No abnormal bleeding/bruising Medications Current Inpatient Medications Medications (Trade) Dose Ordered Sig/Elizabeth Route Start Time Stop Time Status Last Admin Dose Admin Cyclobenzaprine HCl (Flexeril Tab) 10 mg HS PRN PO 11/24/17 17:15 12/24/17 17:14 Eszopiclone (Lunesta Tab) 1 mg HS PRN PO 11/24/17 17:15 12/24/17 17:14 Nitroglycerin (Nitrostat Tab) 0.4 mg UD PRN SL 11/24/17 17:15 12/24/17 17:14 Cholecalciferol (Vitamin D Tab) 2,000 inter.unit DAILY PO 11/25/17 08:00 12/25/17 08:59 11/28/17 08:45 2,000 INTER.UNIT Ferrous Sulfate (Feosol Tab) 325 mg DAILY PO 11/25/17 08:00 12/25/17 08:59 11/28/17 08:45 325 MG Magnesium Oxide (Mag-Ox Tab) 400 mg Q2D@0900 PO 11/25/17 09:00 12/25/17 08:59 11/25/17 07:51 400 MG Hydromorphone HCl (Dilaudid Inj) 0.5 mg Q3H PRN IV 11/24/17 21:15 12/08/17 21:14 11/26/17 12:01 0.5 MG Ondansetron HCl (Zofran Inj) 4 mg Q6H IV 11/25/17 17:00 12/24/17 16:59 11/28/17 04:59 4 MG Thiamine HCl 100 mg/Syringe 10 ml @ 2 mls/min BID IV 11/25/17 20:00 11/30/17 19:59 11/28/17 08:44 2 MLS/MIN Acetaminophen/ Hydrocodone Bitart (Lortab Elixir) 15 ml TIDM PRN PO 11/25/17 16:30 12/09/17 16:29 11/25/17 19:12 15 ML Lidocaine HCl (Viscous Lidocaine 2% Soln) 20 ml Q6H PRN MT 11/25/17 16:30 12/25/17 16:29 11/26/17 13:39 20 ML Polyethylene (Miralax Powder Packet) 17 gm BID PO 11/25/17 20:00 12/25/17 19:59 11/28/17 08:45 17 GM Metoprolol Tartrate (Lopressor Iv) 5 mg Q6 IV. 11/25/17 18:30 12/25/17 18:29 11/28/17 05:00 5 MG Levothyroxine Sodium 25 mcg/ Syringe 1.25 ml @ 2 mls/min DAILY@09 IV 11/26/17 09:00 12/26/17 08:59 11/28/17 08:58 2 MLS/MIN Fentanyl (Duragesic Patch) 25 mcg Q3D@1000 TD 11/26/17 10:00 12/10/17 09:59 11/26/17 10:22 25 MCG Miscellaneous (Fentanyl Patch Remove & Waste) 1 ea Q3D@1000 N/A 11/29/17 10:00 12/29/17 09:59 Miscellaneous Information (Check Fentanyl Patch Placement) 1 ea QS N/A 11/26/17 16:00 12/26/17 15:59 11/28/17 07:18 1 EA Naloxone HCl (Narcan Inj) 0.1 mg Q5M PRN IV 11/26/17 12:45 12/26/17 12:44 Hydromorphone HCl (Dilaudid Vending Machine Technician) 25 mg PRN PRN IV 11/26/17 12:45 12/10/17 12:44 11/26/17 13:32 25 MG Sodium Chloride 1,000 ml @ 15 mls/hr Q24H IV 11/26/17 12:31 12/26/17 12:30 11/27/17 19:56 15 MLS/HR Fluconazole/ Sodium Chloride 200 mg/Prmx 100 ml @ 100 mls/hr DAILY@1600 IV 11/27/17 16:00 12/05/17 16:59 11/27/17 16:23 100 MLS/HR Pantoprazole Sodium 40 mg/ Syringe 10 ml @ 5 mls/min DAILY@09,21 IV 11/27/17 21:00 12/27/17 20:59 11/28/17 08:44 5 MLS/MIN Ioversol (Optiray 320) 100 ml UD PRN IV 11/27/17 12:00 12/01/17 11:59 Sodium Phosphate 15 mmol/Sodium Chloride 255 ml @ 88 mls/hr TODAY@0745 ONCE IV 11/28/17 07:45 11/28/17 10:38 11/28/17 08:41 88 MLS/HR Objective Vital Signs Date Time Temp Pulse Resp B/P (MAP) Pulse Ox O2 Delivery O2 Flow Rate FiO2 11/28/17 08:09 36.8 110 18 113/77 (89) 95 11/28/17 05:00 99 101/66 11/28/17 04:44 36.6 99 18 101/66 (78) 96 Room Air 11/28/17 04:00 Room Air 11/28/17 00:07 106 101/65 11/28/17 00:00 Room Air 11/27/17 23:47 36.7 106 20 101/65 98 11/27/17 22:52 36.5 106 22 111/69 98 11/27/17 22:30 95 22 113/79 95 11/27/17 22:00 105 20 110/66 95 11/27/17 21:32 36.7 97 20 125/75 97 11/27/17 21:13 36.6 105 20 105/83 94 11/27/17 20:00 90 22 113/77 98 11/27/17 20:00 Room Air 11/27/17 19:55 36.6 106 18 116/76 (89) 100 Room Air 11/27/17 19:00 106 16 106/64 99 11/27/17 18:30 101 16 107/71 98 11/27/17 18:16 98 18 86/59 98 11/27/17 18:09 111 109/62 11/27/17 18:06 36.7 111 18 111/62 100 11/27/17 17:52 36.8 110 16 105/70 98 11/27/17 16:00 Room Air 11/27/17 15:22 36.7 117 26 106/71 (83) 96 Room Air 11/27/17 12:26 36.9 93 17 109/57 (74) 98 Room Air 11/27/17 12:00 Room Air 11/27/17 11:52 128 109/57 Physical Exam General Appearance: no apparent distress, + pertinent finding (chronically ill appearing) ENT: + pertinent finding (+hearing aid in place) Respiratory/Chest: no respiratory distress, no accessory muscle use, + crackles (minimal crackles, improving) Cardiovascular: no murmur, + irregularly irregular Abdomen: normal bowel sounds, non tender, soft Extremities: + swelling (+1 pitting edema b/l LE), + pertinent finding Neurologic/Psychiatric: no motor/sensory deficits, alert, normal mood/affect Laboratory Results Last 24 Hours Test 11/27/17 15:20 11/28/17 06:05 Hemoglobin 7.0 g/dL 8.5 g/dL Hematocrit 21.0 % 24.2 % White Blood Count 1.26 K/uL Red Blood Count 2.88 M/uL Mean Corpuscular Volume 84.0 fL Mean Corpuscular Hemoglobin 29.5 pg Mean Corpuscular Hemoglobin Concent 35.1 g/dl Platelet Count 29 K/uL Mean Platelet Volume 8.8 fL RDW Standard Deviation 43.7 fL RDW Coefficient of Variation 14.3 % Neutrophils % (Manual) 73.7 % Lymphocytes % (Manual) 15.8 % Monocytes % (Manual) 7.9 % Eosinophils % (Manual) 2.6 % Neutrophils # (Manual) 0.93 K/uL Total Absolute Neutrophils 0.93 K/uL Lymphocytes # (Manual) 0.20 K/uL Total Absolute Lymphocytes 0.20 K/uL Monocytes # (Manual) 0.10 K/uL Eosinophils # (Manual) 0.03 K/uL Toxic Granulation 2+ Dohle Bodies 1+ Platelet Estimate DECREASED Large Platelets 1+ Red Blood Cell Morphology Unremarkable Sodium Level 134 mmol/L Potassium Level 3.7 mmol/L Chloride Level 106 mmol/L Carbon Dioxide Level 24 mmol/L Anion Gap 4.0 mmol/L Blood Urea Nitrogen 6 mg/dl Creatinine 0.66 mg/dl Est Creatinine Clear Calc Drug Dose 153.9 ml/min Estimated GFR () 125.3 Estimated GFR (Non- 108.1 BUN/Creatinine Ratio 8.8 Random Glucose 75 mg/dl Calcium Level 7.7 mg/dl Phosphorus Level 1.7 mg/dl Magnesium Level 1.8 mg/dl Assessment and Plan This is a 57 year old male with a PMH of small cell lung carcinoma with ongoing chemo and radiation tx., chronic atrial fibrillation on Eliquis, diastolic CHF, CKD stage 3 - presents with difficulty and painful swallowing likely secondary to radiation induced esophagitis Radiation-Induced Esophagitis 11/28/17 for now, no PEG tube currently on full liquid diet continue Diflucan currently on a Dilaudid [employer]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 and receiving Dilaudid PRN for breakthrough; pain management consulted for outpatient pain medications; fentanyl patch on 11/27/17 he is a clear aspiration risk; occasional coughing episodes while eating tolerated clears - and he is requested more of a full liquid diet, which I will order GI consult appreciated - discussed PEG tube options - patient is thinking about it, though leaning against this Diflucan in case candidal esophagitis is a possibility continue pain medications including Fentanyl patch and Dilaudid PRN viscous lidocaine PRN Pancytopenia/Chemo-Induced Neutropenia 11/28/17 s/p 4 units of pRBCs total; Hgb at 8.5 platelets are down to 29, will hold off on transfusion unless epistaxis recurs WBC improved appreciate hem/onc input 11/27/17 patient presents with pancytopenia, including thrombocytopenia, neutropenia and anemia patient has received 3 units of platelets and 2 units of pRBCs so far he had some epistaxis yesterday, likely secondary to low platelets, which have come up today (11/27/17) Filgrastim x3 days, now completed Eliquis d/c'd Hgb is now low at 6.9; platelets improving will transfuse another 2 units of pRBCs - recheck H/H four hours post- transfusion Chronic Atrial Fibrillation patient with chronic A. fib, rates are currently elevated ranging from 100s-130s not tolerated PO b-christian well; continue IV Lopressor PRN will transfuse two more units of pRBCs and monitor HRs (total 4 units pRBCs) no anticoagulation due to pancytopenia/anemia and epistaxis SIRS criteria 11/28/17 blood cultures negative x2 will d/c antibiotics today 11/27/17 meets SIRS secondary to tachycardia and neutropenia likely not infectious, though aspiration pneumonia is a risk for now, will continue Cefepime and Vanco preliminary blood cultures negative, will await final cultures Acute Kidney Injury - resolved creatinine 1.45 on admission given IVFs and creat improved will advance diet and monitor creatinine Electrolyte Imbalances low phos, Mg, and calcium given Mg, which is now wnl will replace phos and recheck in AM DVT ppx SCDs DNR palliative care consult pending
--- NOTE | 2017-11-28 09:46 | Pain Management Consultation ---
Pain Management Consultation Date of Consultation Nov 28, 2017. Reason for Consultation Chest pain Pain Location 1 - History Mr. Glasgow is a 57 year old white male with small cell lung carcinoma and esophagitis. Patient does complain of a deep aching pain in the substernal region. No radiation. Pain is aggravated with taking in deep breaths. Patient is undergoing chemotherapy with subsequent neutropenia. Patient has been on Hydrocodone 7.5/325mg and Oxycodone 5mg tablets at home which were providing mild pain relief. He was having difficulty swallowing due to radiation induced esophagitis so he has not been able to take the pills. He is currently in Fentanyl patch 25mcg/hr, PERSONNEL ARBITRATOR Dilaudid, and PRN Hydrocodone elixer. He has only used the hydrocodone elixer because of difficulty swallowing. He does report moderate pain relief with the current regimen but thinks the Dilaudid is causing drowsiness. He does have hemoptysis and blood in his sputum. + chronic cough. No fevers, chills, nausea, constipation. Case discussed with Dr. Thomas Past Medical/Surgical History (1) Neutropenia (2) Acute on chronic diastolic heart failure (3) CKD (chronic kidney disease), stage III (4) DM type 2 (diabetes mellitus, type 2) (5) Hypothyroidism (6) Atrial fibrillation (7) Sleep apnea (8) Hemoptysis (9) Dysphasia (10) HTN (hypertension) (11) Small cell lung cancer Family History Diabetes mellitus MOTHER FH: CAD (coronary artery disease) FATHER FH: cancer SISTER (possible uterine CA) Stroke FATHER MOTHER Social / Work History Marital Status: single Housing Status: lives alone Occupation: disabled Allergies Coded Allergies: Penicillins (Verified Allergy, Intermediate, RASH, 11/24/17) PT HAD A RXN AND IT COULD NOT BE RULED OUT IF IT WAS THE PCN Medications Current Inpatient Medications Medications (Trade) Dose Ordered Sig/Elizabeth Route Start Time Stop Time Status Last Admin Dose Admin Cyclobenzaprine HCl (Flexeril Tab) 10 mg HS PRN PO 11/24/17 17:15 12/24/17 17:14 Eszopiclone (Lunesta Tab) 1 mg HS PRN PO 11/24/17 17:15 12/24/17 17:14 Nitroglycerin (Nitrostat Tab) 0.4 mg UD PRN SL 11/24/17 17:15 12/24/17 17:14 Cholecalciferol (Vitamin D Tab) 2,000 inter.unit DAILY PO 11/25/17 08:00 12/25/17 08:59 11/28/17 08:45 2,000 INTER.UNIT Ferrous Sulfate (Feosol Tab) 325 mg DAILY PO 11/25/17 08:00 12/25/17 08:59 11/28/17 08:45 325 MG Magnesium Oxide (Mag-Ox Tab) 400 mg Q2D@0900 PO 11/25/17 09:00 12/25/17 08:59 11/25/17 07:51 400 MG Hydromorphone HCl (Dilaudid Inj) 0.5 mg Q3H PRN IV 11/24/17 21:15 12/08/17 21:14 11/26/17 12:01 0.5 MG Ondansetron HCl (Zofran Inj) 4 mg Q6H IV 11/25/17 17:00 12/24/17 16:59 11/28/17 04:59 4 MG Thiamine HCl 100 mg/Syringe 10 ml @ 2 mls/min BID IV 11/25/17 20:00 11/30/17 19:59 11/28/17 08:44 2 MLS/MIN Acetaminophen/ Hydrocodone Bitart (Lortab Elixir) 15 ml TIDM PRN PO 11/25/17 16:30 12/09/17 16:29 11/25/17 19:12 15 ML Lidocaine HCl (Viscous Lidocaine 2% Soln) 20 ml Q6H PRN MT 11/25/17 16:30 12/25/17 16:29 11/26/17 13:39 20 ML Polyethylene (Miralax Powder Packet) 17 gm BID PO 11/25/17 20:00 12/25/17 19:59 11/28/17 08:45 17 GM Metoprolol Tartrate (Lopressor Iv) 5 mg Q6 IV. 11/25/17 18:30 12/25/17 18:29 11/28/17 05:00 5 MG Levothyroxine Sodium 25 mcg/ Syringe 1.25 ml @ 2 mls/min DAILY@09 IV 11/26/17 09:00 12/26/17 08:59 11/28/17 08:58 2 MLS/MIN Fentanyl (Duragesic Patch) 25 mcg Q3D@1000 TD 11/26/17 10:00 12/10/17 09:59 11/26/17 10:22 25 MCG Miscellaneous (Fentanyl Patch Remove & Waste) 1 ea Q3D@1000 N/A 11/29/17 10:00 12/29/17 09:59 Miscellaneous Information (Check Fentanyl Patch Placement) 1 ea QS N/A 11/26/17 16:00 12/26/17 15:59 11/28/17 07:18 1 EA Naloxone HCl (Narcan Inj) 0.1 mg Q5M PRN IV 11/26/17 12:45 12/26/17 12:44 Hydromorphone HCl (Dilaudid Clinical Safety Manager) 25 mg PRN PRN IV 11/26/17 12:45 12/10/17 12:44 11/26/17 13:32 25 MG Sodium Chloride 1,000 ml @ 15 mls/hr Q24H IV 11/26/17 12:31 12/26/17 12:30 11/27/17 19:56 15 MLS/HR Fluconazole/ Sodium Chloride 200 mg/Prmx 100 ml @ 100 mls/hr DAILY@1600 IV 11/27/17 16:00 12/05/17 16:59 11/27/17 16:23 100 MLS/HR Pantoprazole Sodium 40 mg/ Syringe 10 ml @ 5 mls/min DAILY@09,21 IV 11/27/17 21:00 12/27/17 20:59 11/28/17 08:44 5 MLS/MIN Ioversol (Optiray 320) 100 ml UD PRN IV 11/27/17 12:00 12/01/17 11:59 Sodium Phosphate 15 mmol/Sodium Chloride 255 ml @ 88 mls/hr TODAY@0745 ONCE IV 11/28/17 07:45 11/28/17 10:38 11/28/17 08:41 88 MLS/HR Review of Systems Denies any constitutional, cardiac, pulmonary, neurological, GI, , extremity, endocrine, neuro, ENT, dermatological, or musculoskeletal complaints other than stated in HPI Physical Exam Height & Weight: Height 5 feet, 10.00 inches. Weight 108.200 (Kilograms) 238 (Pounds) Last Vital Signs Documentation Date Time Temp Pulse Resp B/P (MAP) Pulse Ox O2 Delivery O2 Flow Rate FiO2 11/28/17 08:09 36.8 110 18 113/77 (89) 95 11/28/17 04:44 Room Air 11/26/17 22:45 0.0 Exam: GENERAL: Mr. Baron is a 57 y/o white male that appears much older than his stated age. Speech and cognition is intact. Mood and affect is appropriate. Does not appear in acute distress. HEAD: Normocephalic; atraumatic. EYES: Pupils are round, equal, and reactive to light; EOM intact. ENT: No external ear discharge or lesions. No rhinorrhea or epistaxis. No mucosal lesions. CHEST: Regular chest respiration and excursion. No tenderness to palpation. NEURO: CN II-XII grossly intact with no focal deficits noted. SKIN: Mild ecchymosis along the right scapula. Laboratory Laboratory Results (Last CBC): 11/28/17 06:05 Red Blood Count 2.88 L, Mean Corpuscular Volume 84.0, Mean Corpuscular Hemoglobin 29.5, Mean Corpuscular Hemoglobin Concent 35.1, Mean Platelet Volume 8.[address] Findings Abdominal CT 11/24/17 Significant wall thickening of the distal esophagus with adjacent possible loculated fluid along the left lateral aspect (series 3 image 9). Previously this was largely obscured secondary to loculated fluid. ADDITIONAL IMPRESSION: 9. Significant wall thickening of the distal esophagus. This could suggest esophagitis, however, underlying neoplasm is difficult to exclude. [place] Drug Monitoring Program Search Results: patient reviewed within database (Multiple prescriptions since 03/2017. Prescriptions do appear appropriate from prescribers and pharmacy.) Assessment 1. Small cell lung cancer 2. Chest pain 3. Extensive esophagitis 4. Chemotherapy induced neutropenia 5. Atrial fibrillation 6. Chronic kidney disease 7. Diabetes Mellitus Recommendations 1. Will increase Fentanyl patch from 25mcg/hr to 50mcg/hr 2. Will keep Dilaudid PERSONNEL ARBITRATOR for breakthrough pain 3. Will check to see the patient's progress tomorrow 4. He does have Hydrocodone elixer ordered PRN breakthrough pain
--- NOTE | 2017-11-28 11:03 | Gastroenterology Progress Note ---
Progress Note Date of Service: Nov 28, 2017 Subjective Pt evaluation today including: conversation w/ patient, physical exam, chart review, lab review, review of studies, review of inpatient medication list Mr. Glasgow is a 57 yr old male admitted with small cell lung cancer and mediastinal mass undergoing radiation treatment, most recently last (6 days ago) and chemotherapy. He had a slow onset of painful swallowing as well as dysphagia over the past 2 weeks. Endoscopy deferred due to neutropenia and thrombocytopenia. On Diflucan x 48 hours as well as a PPI. Patient felt significantly better yesterday and even more improved today. On a full liquid diet now. Specifically today he denies any dysphagia or odynophagia. He does mention some chest discomfort which she thinks feels like he has mucus in his chest that he needs to cough up. This feeling is not worsened with swallowing. Review of Systems Constitutional: No fever ENT: + hearing loss (chronic) Respiratory: + cough (mild, productive of some mucus) Cardiac: + see HPI Abdomen: No pain, No nausea, No vomiting, No diarrhea, No constipation, No GI bleeding Male : No dysuria Neuro: No memory loss Psych: No depression symptoms Heme: No abnormal bleeding/bruising Endo: No fatigue Skin: No rash Medications Current Inpatient Medications Medications (Trade) Dose Ordered Sig/Elizabeth Route Start Time Stop Time Status Last Admin Dose Admin Cyclobenzaprine HCl (Flexeril Tab) 10 mg HS PRN PO 11/24/17 17:15 12/24/17 17:14 Eszopiclone (Lunesta Tab) 1 mg HS PRN PO 11/24/17 17:15 12/24/17 17:14 Nitroglycerin (Nitrostat Tab) 0.4 mg UD PRN SL 11/24/17 17:15 12/24/17 17:14 Cholecalciferol (Vitamin D Tab) 2,000 inter.unit DAILY PO 11/25/17 08:00 12/25/17 08:59 11/28/17 08:45 2,000 INTER.UNIT Ferrous Sulfate (Feosol Tab) 325 mg DAILY PO 11/25/17 08:00 12/25/17 08:59 11/28/17 08:45 325 MG Magnesium Oxide (Mag-Ox Tab) 400 mg Q2D@0900 PO 11/25/17 09:00 12/25/17 08:59 11/25/17 07:51 400 MG Hydromorphone HCl (Dilaudid Inj) 0.5 mg Q3H PRN IV 11/24/17 21:15 12/08/17 21:14 11/26/17 12:01 0.5 MG Ondansetron HCl (Zofran Inj) 4 mg Q6H IV 11/25/17 17:00 12/24/17 16:59 11/28/17 04:59 4 MG Thiamine HCl 100 mg/Syringe 10 ml @ 2 mls/min BID IV 11/25/17 20:00 11/30/17 19:59 11/28/17 08:44 2 MLS/MIN Acetaminophen/ Hydrocodone Bitart (Lortab Elixir) 15 ml TIDM PRN PO 11/25/17 16:30 12/09/17 16:29 11/25/17 19:12 15 ML Lidocaine HCl (Viscous Lidocaine 2% Soln) 20 ml Q6H PRN MT 11/25/17 16:30 12/25/17 16:29 11/26/17 13:39 20 ML Polyethylene (Miralax Powder Packet) 17 gm BID PO 11/25/17 20:00 12/25/17 19:59 11/28/17 08:45 17 GM Metoprolol Tartrate (Lopressor Iv) 5 mg Q6 IV. 11/25/17 18:30 12/25/17 18:29 11/28/17 05:00 5 MG Levothyroxine Sodium 25 mcg/ Syringe 1.25 ml @ 2 mls/min DAILY@09 IV 11/26/17 09:00 12/26/17 08:59 11/28/17 08:58 2 MLS/MIN Fentanyl (Duragesic Patch) 25 mcg Q3D@1000 TD 11/26/17 10:00 12/10/17 09:59 11/26/17 10:22 25 MCG Miscellaneous (Fentanyl Patch Remove & Waste) 1 ea Q3D@1000 N/A 11/29/17 10:00 12/29/17 09:59 Miscellaneous Information (Check Fentanyl Patch Placement) 1 ea QS N/A 11/26/17 16:00 12/26/17 15:59 11/28/17 07:18 1 EA Naloxone HCl (Narcan Inj) 0.1 mg Q5M PRN IV 11/26/17 12:45 12/26/17 12:44 Hydromorphone HCl (Dilaudid Public Relations Account Executive) 25 mg PRN PRN IV 11/26/17 12:45 12/10/17 12:44 11/26/17 13:32 25 MG Sodium Chloride 1,000 ml @ 15 mls/hr Q24H IV 11/26/17 12:31 12/26/17 12:30 11/27/17 19:56 15 MLS/HR Fluconazole/ Sodium Chloride 200 mg/Prmx 100 ml @ 100 mls/hr DAILY@1600 IV 11/27/17 16:00 12/05/17 16:59 11/27/17 16:23 100 MLS/HR Pantoprazole Sodium 40 mg/ Syringe 10 ml @ 5 mls/min DAILY@09,21 IV 11/27/17 21:00 12/27/17 20:59 11/28/17 08:44 5 MLS/MIN Ioversol (Optiray 320) 100 ml UD PRN IV 11/27/17 12:00 12/01/17 11:59 Objective Vital Signs Date Time Temp Pulse Resp B/P (MAP) Pulse Ox O2 Delivery O2 Flow Rate FiO2 11/28/17 08:09 36.8 110 18 113/77 (89) 95 11/28/17 08:00 Room Air 11/28/17 05:00 99 101/66 11/28/17 04:44 36.6 99 18 101/66 (78) 96 Room Air 11/28/17 04:00 Room Air 11/28/17 00:07 106 101/65 11/28/17 00:00 Room Air 11/27/17 23:47 36.7 106 20 101/65 98 11/27/17 22:52 36.5 106 22 111/69 98 11/27/17 22:30 95 22 113/79 95 11/27/17 22:00 105 20 110/66 95 11/27/17 21:32 36.7 97 20 125/75 97 11/27/17 21:13 36.6 105 20 105/83 94 11/27/17 20:00 90 22 113/77 98 11/27/17 20:00 Room Air 11/27/17 19:55 36.6 106 18 116/76 (89) 100 Room Air 11/27/17 19:00 106 16 106/64 99 11/27/17 18:30 101 16 107/71 98 11/27/17 18:16 98 18 86/59 98 11/27/17 18:09 111 109/62 11/27/17 18:06 36.7 111 18 111/62 100 11/27/17 17:52 36.8 110 16 105/70 98 11/27/17 16:00 Room Air 11/27/17 15:22 36.7 117 26 106/71 (83) 96 Room Air 11/27/17 12:26 36.9 93 17 109/57 (74) 98 Room Air 11/27/17 12:00 Room Air 11/27/17 11:52 128 109/57 Physical Exam General Appearance: no apparent distress ENT: pharynx normal Neck: no JVD Respiratory/Chest: lungs clear, normal breath sounds Cardiovascular: regular rate, rhythm, no JVD, no murmur Abdomen: non tender, soft Extremities: non-tender Neurologic/Psych: alert, normal mood/affect, oriented x 3 Skin: no jaundice, no rash Laboratory Results Last 24 Hours Test 11/27/17 15:20 11/28/17 06:05 Hemoglobin 7.0 g/dL 8.5 g/dL Hematocrit 21.0 % 24.2 % White Blood Count 1.26 K/uL Red Blood Count 2.88 M/uL Mean Corpuscular Volume 84.0 fL Mean Corpuscular Hemoglobin 29.5 pg Mean Corpuscular Hemoglobin Concent 35.1 g/dl Platelet Count 29 K/uL Mean Platelet Volume 8.8 fL RDW Standard Deviation 43.7 fL RDW Coefficient of Variation 14.3 % Neutrophils % (Manual) 73.7 % Lymphocytes % (Manual) 15.8 % Monocytes % (Manual) 7.9 % Eosinophils % (Manual) 2.6 % Neutrophils # (Manual) 0.93 K/uL Total Absolute Neutrophils 0.93 K/uL Lymphocytes # (Manual) 0.20 K/uL Total Absolute Lymphocytes 0.20 K/uL Monocytes # (Manual) 0.10 K/uL Eosinophils # (Manual) 0.03 K/uL Toxic Granulation 2+ Dohle Bodies 1+ Platelet Estimate DECREASED Large Platelets 1+ Red Blood Cell Morphology Unremarkable Sodium Level 134 mmol/L Potassium Level 3.7 mmol/L Chloride Level 106 mmol/L Carbon Dioxide Level 24 mmol/L Anion Gap 4.0 mmol/L Blood Urea Nitrogen 6 mg/dl Creatinine 0.66 mg/dl Est Creatinine Clear Calc Drug Dose 153.9 ml/min Estimated GFR () 125.3 Estimated GFR (Non- 108.1 BUN/Creatinine Ratio 8.8 Random Glucose 75 mg/dl Calcium Level 7.7 mg/dl Phosphorus Level 1.7 mg/dl Magnesium Level 1.8 mg/dl Assessment and Plan Mr. Glasgow is a 57 yr old male with (likely) radiation esophagitis, possible candidiasis. Plan: 1. Continue BID PPI x total 1 week then daily. Continue Diflucan times total 21 days. 2. Will advance diet to mechanical soft low fiber, no raw fruits or vegetables. 3. GI will sign off. Please notify us if any new or worsening GI issues. I performed a history and physical examination of the patient. I have discussed the patient's case, impression and plan with ANMOL Langford. Her note reflects my findings and plan. Tolerating POs. Improving radiation esophagitis. Andres Romano MD
[2017-11-28] MEDS: SODIUM CHLORIDE 0.9% 1000ML 1,000 ML IV SCH (11:20)
--- NOTE | 2017-11-28 12:11 | Hematology/Oncology Prog Note ---
Hematology/Onc Progress Note Date of Service Nov 28, 2017. Diagnoses Small Cell lung carcinoma Esophagitis Pancytopenia secondary to chemotherapy and radiation Medications Medications Administered Medications (Trade) Dose Ordered Sig/Elizabeth Route Start Time Stop Time Status Last Admin Dose Admin Sodium Chloride 2,000 ml @ 999 mls/hr Q2H1M STAT IV 11/24/17 14:02 11/24/17 16:07 DC 11/24/17 14:21 999 MLS/HR Ondansetron HCl (Zofran Inj) 4 mg NOW STAT IV 11/24/17 14:02 11/24/17 14:04 DC 11/24/17 14:21 4 MG Morphine Sulfate (MoRPHine SULFATE INJ) 6 mg NOW STAT IV 11/24/17 14:02 11/24/17 14:04 DC 11/24/17 14:22 6 MG Ondansetron HCl (Zofran Inj) 4 mg Q6H PRN IV 11/24/17 17:00 11/25/17 16:37 DC 11/25/17 07:46 4 MG Levothyroxine Sodium (Synthroid Tab) 112 mcg DAILYBB PO 11/25/17 06:30 11/25/17 16:37 DC 11/25/17 07:57 112 MCG Oxycodone HCl (Roxicodone Immediate Rel Tab) 5 mg Q4H PRN PO 11/24/17 17:15 11/26/17 12:31 DC 11/26/17 05:06 5 MG Apixaban (Eliquis Tab) 5 mg BID PO 11/24/17 20:00 11/26/17 12:31 DC 11/24/17 19:49 5 MG Cholecalciferol (Vitamin D Tab) 2,000 inter.unit DAILY PO 11/25/17 08:00 12/25/17 08:59 11/28/17 08:45 2,000 INTER.UNIT Ferrous Sulfate (Feosol Tab) 325 mg DAILY PO 11/25/17 08:00 12/25/17 08:59 11/28/17 08:45 325 MG Lactobacillus Acidophilus (Lactinex Granules Pack) 1 gm BID PEG 11/24/17 20:00 11/24/17 20:30 DC 11/24/17 19:49 1 GM Magnesium Oxide (Mag-Ox Tab) 400 mg Q2D@0900 PO 11/25/17 09:00 12/25/17 08:59 11/25/17 07:51 400 MG Filgrastim (Neupogen Sq) 480 mcg DAILY SC 11/25/17 08:00 11/26/17 12:00 DC 11/26/17 10:19 480 MCG Filgrastim (Neupogen Sq) 480 mcg 1830 ONCE SC 11/24/17 18:30 11/24/17 18:31 DC 11/24/17 20:50 480 MCG Sodium Chloride 1,000 ml @ 100 mls/hr Q10H IV 11/24/17 17:15 11/27/17 10:20 DC 11/27/17 05:58 100 MLS/HR Lactobacillus Acidophilus (Floranex Tab) 4 tab BID PO 11/25/17 08:00 11/25/17 16:43 DC 11/25/17 07:57 4 TAB Hydromorphone HCl (Dilaudid Inj) 0.5 mg Q3H PRN IV 11/24/17 21:15 12/08/17 21:14 11/26/17 12:01 0.5 MG Hydromorphone HCl (Dilaudid Inj) 0.5 mg 2112 ONCE IV 11/24/17 21:12 11/24/17 21:18 DC 11/24/17 21:28 0.5 MG Magnesium Sulfate 4 gm/Sodium Phosphate 15 mmol/ Sodium Chloride 513 ml @ 128 mls/hr 0900 ONCE IV 11/25/17 09:00 11/25/17 13:00 DC 11/25/17 09:34 128 MLS/HR Bisacodyl (Dulcolax Supp) 10 mg STK-MED ONCE .ROUTE 11/25/17 10:21 11/25/17 10:22 DC 11/25/17 10:25 10 MG Ondansetron HCl (Zofran Inj) 4 mg Q6H IV 11/25/17 17:00 12/24/17 16:59 11/28/17 11:15 4 MG Thiamine HCl 100 mg/Syringe 10 ml @ 2 mls/min BID IV 11/25/17 20:00 11/30/17 19:59 11/28/17 08:44 2 MLS/MIN Acetaminophen/ Hydrocodone Bitart (Lortab Elixir) 15 ml TIDM PRN PO 11/25/17 16:30 1/14/18 16:29 11/25/17 19:12 15 ML Lidocaine HCl (Viscous Lidocaine 2% Soln) 20 ml Q6H PRN MT 11/25/17 16:30 12/25/17 16:29 11/26/17 13:39 20 ML Sodium Chloride 1,000 ml @ 999 mls/hr Q1H1M IV 11/25/17 16:30 11/25/17 17:30 DC 11/25/17 16:52 999 MLS/HR Polyethylene (Miralax Powder Packet) 17 gm BID PO 11/25/17 20:00 12/25/17 19:59 11/28/17 08:45 17 GM Cefepime HCl 2000 mg/Syringe 20 ml @ 5 mls/min Q8H IV 11/25/17 17:30 11/28/17 08:40 DC 11/28/17 02:00 5 MLS/MIN Vancomycin HCl 2500 mg/Sodium Chloride 550 ml @ 200 mls/hr TODAY@1745 ONCE IV 11/25/17 17:45 11/25/17 20:29 DC 11/25/17 19:13 200 MLS/HR Metoprolol Tartrate (Lopressor Iv) 5 mg Q6 IV. 11/25/17 18:30 12/25/17 18:29 11/28/17 11:20 5 MG Vancomycin HCl 1500 mg/Sodium Chloride 530 ml @ 200 mls/hr Q12H IV 11/26/17 06:00 11/27/17 10:51 DC 11/27/17 05:57 200 MLS/HR Levothyroxine Sodium 25 mcg/ Syringe 1.25 ml @ 2 mls/min DAILY@09 IV 11/26/17 09:00 12/26/17 08:59 11/28/17 08:58 2 MLS/MIN Sodium Chloride 1,000 ml @ 250 mls/hr Q4H IV 11/25/17 21:00 11/26/17 00:59 DC 11/25/17 21:07 250 MLS/HR Calcium Gluconate 2000 mg/Sodium Chloride 70 ml @ 70 mls/hr NOW ONCE IV 11/26/17 09:00 11/26/17 09:59 DC 11/26/17 09:11 70 MLS/HR Sodium Phosphate 30 mmol/Sodium Chloride 510 ml @ 88 mls/hr NOW ONCE IV 11/26/17 09:00 11/26/17 14:47 DC 11/26/17 10:16 88 MLS/HR Fentanyl (Duragesic Patch) 25 mcg Q3D@1000 TD 11/26/17 10:00 11/28/17 12:03 DC 11/26/17 10:22 25 MCG Miscellaneous Information (Check Fentanyl Patch Placement) 1 ea QS N/A 11/26/17 16:00 11/28/17 12:03 DC 11/28/17 07:18 1 EA Diphenhydramine HCl (Benadryl Inj) 25 mg ONE ONCE IV 11/26/17 09:45 11/26/17 09:46 DC 11/26/17 13:37 25 MG Acetaminophen 650 mg/Empty Bag 65 ml @ 260 mls/hr ONE ONCE IV 11/26/17 10:00 11/26/17 10:14 DC 11/26/17 13:36 260 MLS/HR Hydromorphone HCl (Dilaudid Plugger) 25 mg PRN PRN IV 11/26/17 12:45 12/10/17 12:44 11/26/17 13:32 25 MG Sodium Chloride 1,000 ml @ 15 mls/hr Q24H IV 11/26/17 12:31 12/26/17 12:30 11/28/17 11:20 15 MLS/HR Fluconazole/ Sodium Chloride 200 mg/Prmx 100 ml @ 100 mls/hr TODAY@1600,1700 IV 11/26/17 16:00 11/26/17 17:59 DC 11/26/17 16:42 100 MLS/HR Fluconazole/ Sodium Chloride 200 mg/Prmx 100 ml @ 100 mls/hr DAILY@1600 IV 11/27/17 16:00 12/05/17 16:59 11/27/17 16:23 100 MLS/HR Pantoprazole Sodium 40 mg/ Syringe 10 ml @ 5 mls/min DAILY@09,21 IV 11/27/17 21:00 12/27/17 20:59 11/28/17 08:44 5 MLS/MIN Potassium Phosphate 15 mmol/ Sodium Chloride 255 ml @ 88 mls/hr TODAY@1030 ONCE IV 11/27/17 10:30 11/27/17 13:23 DC 11/27/17 11:50 88 MLS/HR Vancomycin HCl 1500 mg/Sodium Chloride 530 ml @ 200 mls/hr Q10H IV 11/27/17 16:00 11/28/17 08:40 DC 11/28/17 02:11 200 MLS/HR Sodium Phosphate 15 mmol/Sodium Chloride 255 ml @ 88 mls/hr TODAY@0745 ONCE IV 11/28/17 07:45 11/28/17 10:38 DC 11/28/17 08:41 88 MLS/HR Subjective He seems to be doing fairly well. He is afebrile. Blood counts are recovering. He just finished lunch that appeared to have some semisolid food. Pain seems fairly well controlled Review of Systems: Constitutional: Negative for weight loss, night sweats, or fever Eyes: Negative for event change of vision ENT: Negative for epistaxis, nasal discharge, sore throat, or deafness Cardiovascular: Negative for new chest pain, palpitations, dizziness, diaphoresis Respiratory: Negative for new shortness of breath,hemoptysis, or purulent cough Gastrointestinal: Negative for diarrhea, hematemesis, melena, nausea, vomiting , or dyspepsia Integumentary (skin): Negative for rash or jaundice discoloration Neurological: Negative for weakness, seizure activity, headache, or dizziness Lymphatic/Hematologic: Negative for petechiae, bleeding or new adenopathy Musculoskeletal: Negative for new joint or back pain Allergic/Immunologic: Negative for unusual rash or pruritis. Vital Signs Vital Signs Past 12 Hours Date Time Temp Pulse Resp B/P (MAP) Pulse Ox O2 Delivery O2 Flow Rate FiO2 11/28/17 11:20 36.9 100 20 97 Room Air 11/28/17 11:20 104 112/65 11/28/17 08:09 36.8 110 18 113/77 (89) 95 11/28/17 08:00 Room Air 11/28/17 05:00 99 101/66 11/28/17 04:44 36.6 99 18 101/66 (78) 96 Room Air 11/28/17 04:00 Room Air Physical Exam Constitutional: vitals are stable. alopecic gentleman Eyes: Eyes are DANG EOMI without conjuctival erythema or icterus. ENT: External examination was negative for masses. Neck: Negative for masses or palpable thyromegaly Respiratory: Lung sounds were generally clear bilaterally Cardiovascular: Heart was RRR without significant murmur, gallops aoe rubs Gastrointestinal: No palpable hepatic or splenomegaly. The abdomen was soft with normal bowel sounds. Lymphatic system: there was no palpable peripheral lymphadenopathy Musculoskeletal System: The musculoskeletal system seemed concordant with age. Skin: The skin was negative for jaundice. Neurologic exam: The exam was negative for any focal findings. Deep tendon reflexes were equal and symmetrical. Psychiatric exam: Was essentially negative with normal mood and effect. Extremities: negative for worsening edema Laboratory Last 24 Hours Test 11/27/17 15:20 11/28/17 06:05 Hemoglobin 7.0 g/dL 8.5 g/dL Hematocrit 21.0 % 24.2 % White Blood Count 1.26 K/uL Red Blood Count 2.88 M/uL Mean Corpuscular Volume 84.0 fL Mean Corpuscular Hemoglobin 29.5 pg Mean Corpuscular Hemoglobin Concent 35.1 g/dl Platelet Count 29 K/uL Mean Platelet Volume 8.8 fL RDW Standard Deviation 43.7 fL RDW Coefficient of Variation 14.3 % Neutrophils % (Manual) 73.7 % Lymphocytes % (Manual) 15.8 % Monocytes % (Manual) 7.9 % Eosinophils % (Manual) 2.6 % Neutrophils # (Manual) 0.93 K/uL Total Absolute Neutrophils 0.93 K/uL Lymphocytes # (Manual) 0.20 K/uL Total Absolute Lymphocytes 0.20 K/uL Monocytes # (Manual) 0.10 K/uL Eosinophils # (Manual) 0.03 K/uL Toxic Granulation 2+ Dohle Bodies 1+ Platelet Estimate DECREASED Large Platelets 1+ Red Blood Cell Morphology Unremarkable Sodium Level 134 mmol/L Potassium Level 3.7 mmol/L Chloride Level 106 mmol/L Carbon Dioxide Level 24 mmol/L Anion Gap 4.0 mmol/L Blood Urea Nitrogen 6 mg/dl Creatinine 0.66 mg/dl Est Creatinine Clear Calc Drug Dose 153.9 ml/min Estimated GFR () 125.3 Estimated GFR (Non- 108.1 BUN/Creatinine Ratio 8.8 Random Glucose 75 mg/dl Calcium Level 7.7 mg/dl Phosphorus Level 1.7 mg/dl Magnesium Level 1.8 mg/dl Assessment & Plan Pancytopenia secondary to chemotherapy. Count better on G-CSF. I suspect it will be back to something very normal within the next 24-48 hours. Platelet count is 29,000. No overt bleeding. Hemoglobin stable after transfusion. He is afebrile. Seems to be doing well. I did discuss with him receiving further radiation as was recommended by radiation therapy here in [place] and he seems to be willing to do that.
--- NOTE | 2017-11-28 12:16 | Clinical Documentation Query ---
XAVIER Boudreaux : CLINICAL DOCUMENTATION QUERY Documentation includes "pancytopenia/chemo-induced neutropenia". Previously documented was neutropenia/chemo-induced pancytopenia. As appropriate, consider documentation as suggested below in order to avoid remote broadcast engineer misinterpretation at time of discharge. He has been transfused platelets, PRBC's, and Neupogen. In your clinical opinion is this patient being managed for: ( X ) Chemotherapy induced pancytopenia ( ) Not Agree ( ) Other explanation of clinical findings (Please Explain) ( ) Unable to determine (Please Define) ( ) Need to Discuss The medical record reflects the following clinical findings, treatment, and risk factors. Clinical Indicators: As above Treatment:He has been transfused platelets, PRBC's, and Neupogen Risk Factors: Chemotherapy Please clarify and document your clinical opinion in the progress notes and discharge summary. Terms such as "probable", "suspected", "likely", "questionable", "possible", or "still to be ruled out" are acceptable. IF IN AGREEMENT, YOU MUST DOCUMENT ABOVE DIAGNOSTIC STATEMENT IN DAILY PROGRESS NOTES AND DISCHARGE SUMMARY. This document is not part of the patient's record. Thank You, Reza Parker, RN [phone]
[2017-11-28] MEDS ORDERED: FENTANYL PATCH REMOVE & WASTE SCH (12:29)
[2017-11-28] MEDS ORDERED: FENTANYL 50 MCG/HR TDSY TD SCH (12:30)
--- NOTE | 2017-11-28 14:51 | Palliative Care Consultation ---
Consultation Date of Consultation: Nov 28, 2017. Requesting Physician: Dr. Keys Attending Physician: Dr. Farmer Reason for Consultation: Goals of care History of Present Illness This 57 year old male patient presented to the hospital several days ago with c/ o nausea, vomiting, weakness, and tiredness. Patient was found to have GENE and neutropenia. He was admitted to telemetry floor for monitoring and is receiving supportive care there. His pain was severe upon admission, he is placed on Dilaudid CIVIL DESIGN TECHNICIAN at this time and has good pain control with that. Patient mentioned to the physician that he wanted to know more about hospice care and was unsure of whether or not he wanted to continue on with chemo/radiation for the cancer. Palliative care is consulted. I met with the patient in room 208. He is awake, alert and oriented x4. Very pleasant and talkative. His pain is 5/10 currently, which he is said is baseline and a livable number for him. He does not want any increase in pain meds because he does not want to be sedated. His pain is in esophagus, back, abdomen and lungs when he takes deep breaths. We had a discussion about goals of care. Please see plan below. 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 Afib, chronic Diastolic heart failure Nausea/vomiting, chronic Solitary kidney CAD HLD Pleural effusion AAA Surgical History: Bronchoscopy Removal of kidney 2014 Social History Smoking Status: Former Smoker History of Alcohol Use: No Drug Use: none Marital Status: single Housing Status: lives alone Occupation Status: disabled Review of Systems Constitutional: No weakness ENT: + hearing loss (chronic), + trouble swallowing Respiratory: No shortness of breath, No dyspnea on exertion Cardiac: + edema, No chest pain Abdomen: + pain, No nausea, No vomiting Male : No problem reported Neurologic: No problem reported Psychiatric: No depression symptoms, No anxiety Allergies Coded Allergies: Penicillins (Verified Allergy, Intermediate, RASH, 11/24/17) PT HAD A RXN AND IT COULD NOT BE RULED OUT IF IT WAS THE PCN Medications Current Inpatient Medications Medications (Trade) Dose Ordered Sig/Elizabeth Route Start Time Stop Time Status Last Admin Dose Admin Cyclobenzaprine HCl (Flexeril Tab) 10 mg HS PRN PO 11/24/17 17:15 12/24/17 17:14 Eszopiclone (Lunesta Tab) 1 mg HS PRN PO 11/24/17 17:15 12/24/17 17:14 Nitroglycerin (Nitrostat Tab) 0.4 mg UD PRN SL 11/24/17 17:15 12/24/17 17:14 Cholecalciferol (Vitamin D Tab) 2,000 inter.unit DAILY PO 11/25/17 08:00 12/25/17 08:59 11/28/17 08:45 2,000 INTER.UNIT Ferrous Sulfate (Feosol Tab) 325 mg DAILY PO 11/25/17 08:00 12/25/17 08:59 11/28/17 08:45 325 MG Magnesium Oxide (Mag-Ox Tab) 400 mg Q2D@0900 PO 11/25/17 09:00 12/25/17 08:59 11/25/17 07:51 400 MG Hydromorphone HCl (Dilaudid Inj) 0.5 mg Q3H PRN IV 11/24/17 21:15 12/08/17 21:14 11/26/17 12:01 0.5 MG Ondansetron HCl (Zofran Inj) 4 mg Q6H IV 11/25/17 17:00 12/24/17 16:59 11/28/17 11:15 4 MG Thiamine HCl 100 mg/Syringe 10 ml @ 2 mls/min BID IV 11/25/17 20:00 11/30/17 19:59 11/28/17 08:44 2 MLS/MIN Acetaminophen/ Hydrocodone Bitart (Lortab Elixir) 15 ml TIDM PRN PO 11/25/17 16:30 12/09/17 16:29 11/25/17 19:12 15 ML Lidocaine HCl (Viscous Lidocaine 2% Soln) 20 ml Q6H PRN MT 11/25/17 16:30 12/25/17 16:29 11/26/17 13:39 20 ML Polyethylene (Miralax Powder Packet) 17 gm BID PO 11/25/17 20:00 12/25/17 19:59 11/28/17 08:45 17 GM Metoprolol Tartrate (Lopressor Iv) 5 mg Q6 IV. 11/25/17 18:30 12/25/17 18:29 11/28/17 11:20 5 MG Levothyroxine Sodium 25 mcg/ Syringe 1.25 ml @ 2 mls/min DAILY@09 IV 11/26/17 09:00 12/26/17 08:59 11/28/17 08:58 2 MLS/MIN Naloxone HCl (Narcan Inj) 0.1 mg Q5M PRN IV 11/26/17 12:45 12/26/17 12:44 Hydromorphone HCl (Dilaudid Business Office Assistant) 25 mg PRN PRN IV 11/26/17 12:45 12/10/17 12:44 11/26/17 13:32 25 MG Sodium Chloride 1,000 ml @ 15 mls/hr Q24H IV 11/26/17 12:31 12/26/17 12:30 11/28/17 11:20 15 MLS/HR Fluconazole/ Sodium Chloride 200 mg/Prmx 100 ml @ 100 mls/hr DAILY@1600 IV 11/27/17 16:00 12/05/17 16:59 11/27/17 16:23 100 MLS/HR Pantoprazole Sodium 40 mg/ Syringe 10 ml @ 5 mls/min DAILY@09,21 IV 11/27/17 21:00 12/27/17 20:59 11/28/17 08:44 5 MLS/MIN Ioversol (Optiray 320) 100 ml UD PRN IV 11/27/17 12:00 12/01/17 11:59 Fentanyl (Duragesic Patch) 50 mcg Q3D@1230 TD 11/28/17 12:30 12/12/17 12:29 11/28/17 12:17 50 MCG Miscellaneous (Fentanyl Patch Remove & Waste) 1 ea Q3D@1229 N/A 11/28/17 12:29 12/28/17 12:28 11/28/17 12:20 1 EA Miscellaneous Information (Check Fentanyl Patch Placement) 1 ea QS N/A 11/28/17 16:00 12/28/17 15:59 Physical Exam Date Time Temp Pulse Resp B/P (MAP) Pulse Ox O2 Delivery O2 Flow Rate FiO2 11/28/17 12:00 Room Air 11/28/17 11:20 36.9 100 20 97 Room Air 11/28/17 11:20 104 112/65 11/28/17 08:09 36.8 110 18 113/77 (89) 95 11/28/17 08:00 Room Air 11/28/17 05:00 99 101/66 11/28/17 04:44 36.6 99 18 101/66 (78) 96 Room Air 11/28/17 04:00 Room Air 11/28/17 00:07 106 101/65 11/28/17 00:00 Room Air 11/27/17 23:47 36.7 106 20 101/65 98 11/27/17 22:52 36.5 106 22 111/69 98 11/27/17 22:30 95 22 113/79 95 11/27/17 22:00 105 20 110/66 95 11/27/17 21:32 36.7 97 20 125/75 97 11/27/17 21:13 36.6 105 20 105/83 94 11/27/17 20:00 90 22 113/77 98 11/27/17 20:00 Room Air 11/27/17 19:55 36.6 106 18 116/76 (89) 100 Room Air 11/27/17 19:00 106 16 106/64 99 11/27/17 18:30 101 16 107/71 98 11/27/17 18:16 98 18 86/59 98 11/27/17 18:09 111 109/62 11/27/17 18:06 36.7 111 18 111/62 100 11/27/17 17:52 36.8 110 16 105/70 98 11/27/17 16:00 Room Air 11/27/17 15:22 36.7 117 26 106/71 (83) 96 Room Air General Appearance: no apparent distress, + obese ENT: hearing grossly normal (with hearing implant device) Neck: supple, no JVD Respiratory: no respiratory distress, no accessory muscle use, + pertinent finding (room air) Cardiovascular: + irregularly irregular, + normal peripheral pulses, + pertinent finding (+2-3 pitting edema to bilateral lower extremities) Abdomen: normal bowel sounds, non tender, soft Neurologic/Psychiatric: alert, normal mood/affect, oriented x 3 Skin: normal color Laboratory Results Last 24 Hours Test 11/27/17 15:20 11/28/17 06:05 Hemoglobin 7.0 g/dL 8.5 g/dL Hematocrit 21.0 % 24.2 % White Blood Count 1.26 K/uL Red Blood Count 2.88 M/uL Mean Corpuscular Volume 84.0 fL Mean Corpuscular Hemoglobin 29.5 pg Mean Corpuscular Hemoglobin Concent 35.1 g/dl Platelet Count 29 K/uL Mean Platelet Volume 8.8 fL RDW Standard Deviation 43.7 fL RDW Coefficient of Variation 14.3 % Neutrophils % (Manual) 73.7 % Lymphocytes % (Manual) 15.8 % Monocytes % (Manual) 7.9 % Eosinophils % (Manual) 2.6 % Neutrophils # (Manual) 0.93 K/uL Total Absolute Neutrophils 0.93 K/uL Lymphocytes # (Manual) 0.20 K/uL Total Absolute Lymphocytes 0.20 K/uL Monocytes # (Manual) 0.10 K/uL Eosinophils # (Manual) 0.03 K/uL Toxic Granulation 2+ Dohle Bodies 1+ Platelet Estimate DECREASED Large Platelets 1+ Red Blood Cell Morphology Unremarkable Sodium Level 134 mmol/L Potassium Level 3.7 mmol/L Chloride Level 106 mmol/L Carbon Dioxide Level 24 mmol/L Anion Gap 4.0 mmol/L Blood Urea Nitrogen 6 mg/dl Creatinine 0.66 mg/dl Est Creatinine Clear Calc Drug Dose 153.9 ml/min Estimated GFR () 125.3 Estimated GFR (Non- 108.1 BUN/Creatinine Ratio 8.8 Random Glucose 75 mg/dl Calcium Level 7.7 mg/dl Phosphorus Level 1.7 mg/dl Magnesium Level 1.8 mg/dl Assessment & Plan Problem list: Pain- back, esophagus/chest, lungs, abdomen Lung cancer Radiation-induced esophagitis/odynophagia Neutropenia pancytopenia Afib, chronic GENE-resolved Goals of care (Z51.5) Palliative care recs: discussed with patient -Patient is level 5/DNR -Patient states he is the kind of person to want to focus on quality of life, not quantity. He does still feel that he would like to continue on with treatment for the cancer and plans to follow up with oncology after hospitalization. However, he states that as soon as he feels that it is no longer providing any benefit to him or is making things worse, he will stop and probably enter hospice. -Patient has a good understanding of hospice, he had a few questions which I did answer. -I would increase patient's fentanyl patch to 50mcg/hr and reassess pain tomorrow. I see that pain management is consulted and has made the same recommendation. I will defer pain management to them at this time, but Dr. Cedillo and I will follow as well. -Patient would like to follow up with Dr. Cedillo in outpatient palliative clinic. I will get this set up tomorrow with Mamadou. Thank you kindly for this consult. I will follow as needed.
[2017-11-28] MEDS: FLUCONAZOLE / NSS 200 MG in PREMIXED NSS 100 ML IV SCH (15:49)
[2017-11-28] MEDS ORDERED: VANCOMYCIN TROUGH ONE (21:30)
[2017-11-28] MEDS: HYDROmorphone HCL 0.5MG/ML 50 ML CASSETTE IV PRN (21:46)
[2017-11-29] VITALS (10 sets, daily range): BP systolic 104–121; BP diastolic 64–80; PULSE 90–109; TEMP 36.3–36.9; O2SAT 92–97
[2017-11-29] MEDS: METOPROLOL TARTRATE 1 MG/ML VIAL IV. SCH ×4 (00:33→18:11)
[2017-11-29] MEDS: CHECK FENTANYL PATCH PLACEMENT SCH ×2 (00:34→16:14)
[2017-11-29] MEDS ORDERED: VANCOMYCIN INJ 2,500 MG in SODIUM CHLORIDE 0.9% 500ML 500 ML IV STA (02:00)
[2017-11-29] MEDS ORDERED: VANCOMYCIN CONSULT ACTIVE PRN (02:15)
[2017-11-29] MEDS: ONDANSETRON INJ 2 MG/ML 2 ML VIAL IV SCH ×4 (04:52→22:50)
[2017-11-29 07:00] LABS: HEMATOCRIT 24.6 % (42-52); HEMOGLOBIN 8.5 g/dL (14.0-18.0); MEAN CELL VOLUME 84.2 fL (80-100); MEAN CORPUSCULAR HEMOGLOBIN 29.1 pg (25-34); MEAN CORPUSCULAR HGB CONC 34.6 g/dl (32-36); MEAN PLATELET VOLUME 9.8 fL (7.4-10.4); PLATELET COUNT 26 K/uL (130-400); RED CELL DISTRIBUTION WIDTH CV 14.8 % (11.5-14.5); RED CELL DISTRIBUTION WIDTH SD 44.8 fL (36.4-46.3); WHITE BLOOD COUNT 1.37 K/uL (4.8-10.8)
[2017-11-29 07:10] LABS: CALCIUM 7.9 mg/dl (8.5-10.1); CREATININE 0.66 mg/dl (0.60-1.40); POTASSIUM 3.6 mmol/L (3.5-5.1)
[2017-11-29 07:22] LABS: PHOSPHORUS 1.5 mg/dl (2.5-4.9)
[2017-11-29] MEDS ORDERED: SODIUM PHOSPHATE 3 MMOL/1 ML INFUSION IV STA (07:25)
[2017-11-29] MEDS ORDERED: MAGNESIUM SULFATE 1GM / D5W 1 GM in PREMIXED IN D5W 100 ML IV STA (07:47)
[2017-11-29] MEDS ORDERED: SODIUM PHOSPHATE INJ 21 MMOL in SODIUM CHLORIDE 0.9% 500ML 500 ML IV STA (07:49)
--- NOTE | 2017-11-29 08:34 | Pain Management Progress Note ---
Pain Management Progress Note Date of Service Nov 29, 2017. Subjective Mr. Glasgow is a 57-year-old white male with small cell lung carcinoma with large mediastinal mass. Patient also has esophagitis likely related to radiation therapy. Patient complains of pain in the chest/substernal locations as well as the posterior lateral chest wall bilaterally. Aggravation of pain occurs with deep breathing activities. Patient's fentanyl dose was adjusted to 50 g yesterday. The patient has not noted side effects to this dosage adjustment. He continues utilize SUMMER SESSIONS DIRECTOR Dilaudid for breakthrough pain with efficacy but does contribute to sedation. He reports his overall pain is similar compared to yesterday with regards to severity. He is rating his pain at a 2-6/10. He denies change in location or characteristic. Patient remains unable to utilize oral medications to to his esophagitis. He continues with painful swallowing. Patient has no new neurologic or further constitutional complaints. Objective Vital Signs: Last Vital Signs Documentation Date Time Temp Pulse Resp B/P (MAP) Pulse Ox O2 Delivery O2 Flow Rate FiO2 11/29/17 07:28 36.9 99 16 114/74 (87) 97 11/29/17 04:30 Room Air 11/26/17 22:45 0.0 Physical Exam: Gen.: Patient sitting up upon entering the room in no obvious acute distress. Speech and thought process appropriate. Mood and affect appropriate. Cognition intact. Chest: Patient is tender over the sternal location to palpation. Patient is tender along the anterior lateral and posterior chest wall to palpation slightly right greater than left-sided. Patient tender with AP and lateral compression of the chest wall. Neurologic: Cranial nerves grossly intact. Ambulatory function not witnessed. Laboratory Laboratory Findings 11/29/17 06:13 Assessment 1. Small cell lung cancer 2. History of large mediastinal mass 3. Chest pain secondary to above 4. Esophagitis likely radiation-induced 5. Chemotherapy-induced neutropenia 6. Atrial fibrillation 7. Chronic kidney disease 8. Diabetes mellitus Recommendations 1. Patient utilized approximately 9 mg of IV hydromorphone over the past 24 hours. Will further progress his fentanyl dose. Fentanyl will adjust from 50 g per hour to 75 g per hour at this time. 2. Patient will continue with hydromorphone SUMMER SESSIONS DIRECTOR for breakthrough pain 3. Patient will attempt to utilize the hydrocodone elixir in place of hydromorphone SUMMER SESSIONS DIRECTOR when able 4. Will reevaluate the patient in 24 hours
[2017-11-29] MEDS: POLYETHYLENE (MIRALAX) 17 GM PACK PO SCH ×2 (09:00→21:00)
--- NOTE | 2017-11-29 09:15 | Progress Note ---
Subjective Date of Service: Nov 29, 2017. Subjective Pt evaluation today including: conversation w/ patient, physical exam, lab review, review of studies, review of inpatient medication list Saw/examined the patient in room 208 Has intermittent issues with swallowing. Epistaxis has stopped. Had a BM yesterday. No chest pain. C/o worsening swelling in legs/ankles Problem List Medical Problems: (1) Abdominal pain Status: Chronic (2) Anticoagulants,Lt,Current Use Status: Chronic (3) Atrial fibrillation Status: Chronic (4) Bowel obstruction Status: Acute (5) Congestive Heart Failure Nos Status: Chronic (6) Coronary Atherosclerosis Of [place] Coronary Vessel Status: Chronic (7) Dehydration Status: Acute (8) Diabetes mellitus type 2 Status: Chronic (9) Hyperlipidemia Status: Chronic (10) Hypertensive disorder, systemic arterial Status: Chronic (11) Hypothyroidism Status: Chronic (12) Obstructive Sleep Apnea (Adult) (Pediatric) Status: Chronic (13) Renal insufficiency Status: Chronic (14) Right lumbar radiculitis Status: Acute (15) SOB (shortness of breath) Status: Acute (16) Substernal chest pain Status: Acute (17) Upper abdominal pain Status: Acute (18) Vomiting Status: Acute Review of Systems Constitutional: No fever, No chills, No weakness ENT: + trouble swallowing, No sore throat Respiratory: + cough, + wheezing, + shortness of breath, No sputum, No dyspnea on exertion, No dyspnea at rest, No hemoptysis Cardiac: + edema, No chest pain Abdomen: No pain, No nausea, No vomiting, No diarrhea, No constipation Heme: No abnormal bleeding/bruising Medications Current Inpatient Medications Medications (Trade) Dose Ordered Sig/Elizabeth Route Start Time Stop Time Status Last Admin Dose Admin Cyclobenzaprine HCl (Flexeril Tab) 10 mg HS PRN PO 11/24/17 17:15 12/24/17 17:14 Eszopiclone (Lunesta Tab) 1 mg HS PRN PO 11/24/17 17:15 12/24/17 17:14 Nitroglycerin (Nitrostat Tab) 0.4 mg UD PRN SL 11/24/17 17:15 12/24/17 17:14 Cholecalciferol (Vitamin D Tab) 2,000 inter.unit DAILY PO 11/25/17 08:00 12/25/17 08:59 11/28/17 08:45 2,000 INTER.UNIT Ferrous Sulfate (Feosol Tab) 325 mg DAILY PO 11/25/17 08:00 12/25/17 08:59 11/28/17 08:45 325 MG Magnesium Oxide (Mag-Ox Tab) 400 mg Q2D@0900 PO 11/25/17 09:00 12/25/17 08:59 11/25/17 07:51 400 MG Hydromorphone HCl (Dilaudid Inj) 0.5 mg Q3H PRN IV 11/24/17 21:15 12/08/17 21:14 11/26/17 12:01 0.5 MG Ondansetron HCl (Zofran Inj) 4 mg Q6H IV 11/25/17 17:00 12/24/17 16:59 11/29/17 04:52 4 MG Thiamine HCl 100 mg/Syringe 10 ml @ 2 mls/min BID IV 11/25/17 20:00 11/30/17 19:59 11/28/17 21:40 2 MLS/MIN Acetaminophen/ Hydrocodone Bitart (Lortab Elixir) 15 ml TIDM PRN PO 11/25/17 16:30 12/09/17 16:29 11/25/17 19:12 15 ML Lidocaine HCl (Viscous Lidocaine 2% Soln) 20 ml Q6H PRN MT 11/25/17 16:30 12/25/17 16:29 11/26/17 13:39 20 ML Polyethylene (Miralax Powder Packet) 17 gm BID PO 11/25/17 20:00 12/25/17 19:59 11/28/17 08:45 17 GM Metoprolol Tartrate (Lopressor Iv) 5 mg Q6 IV. 11/25/17 18:30 12/25/17 18:29 11/29/17 06:18 5 MG Levothyroxine Sodium 25 mcg/ Syringe 1.25 ml @ 2 mls/min DAILY@09 IV 11/26/17 09:00 12/26/17 08:59 11/28/17 08:58 2 MLS/MIN Naloxone HCl (Narcan Inj) 0.1 mg Q5M PRN IV 11/26/17 12:45 12/26/17 12:44 Hydromorphone HCl (Dilaudid Natural Gas Plant Technician) 25 mg PRN PRN IV 11/26/17 12:45 12/10/17 12:44 11/28/17 21:46 25 MG Sodium Chloride 1,000 ml @ 15 mls/hr Q24H IV 11/26/17 12:31 12/26/17 12:30 11/28/17 11:20 15 MLS/HR Fluconazole/ Sodium Chloride 200 mg/Prmx 100 ml @ 100 mls/hr DAILY@1600 IV 11/27/17 16:00 12/05/17 16:59 11/28/17 15:49 100 MLS/HR Pantoprazole Sodium 40 mg/ Syringe 10 ml @ 5 mls/min DAILY@09,21 IV 11/27/17 21:00 12/27/17 20:59 11/28/17 21:39 5 MLS/MIN Ioversol (Optiray 320) 100 ml UD PRN IV 11/27/17 12:00 12/01/17 11:59 Miscellaneous (Fentanyl Patch Remove & Waste) 1 ea Q3D@1229 N/A 11/28/17 12:29 12/28/17 12:28 11/28/17 12:20 1 EA Vancomycin HCl (Consult) 1 ea UD PRN N/A 11/29/17 02:15 12/29/17 02:14 Sodium Phosphate 21 mmol/Sodium Chloride 507 ml @ 144.857 mls/hr NOW STAT IV 11/29/17 07:49 11/29/17 11:18 Fentanyl (Duragesic Patch) 75 mcg Q72H TD 11/29/17 08:30 12/13/17 08:29 UNV Miscellaneous (Fentanyl Patch Remove & Waste) 1 ea Q3D N/A 12/02/17 08:30 01/01/18 08:29 UNV Miscellaneous Information (Check Fentanyl Patch Placement) 1 ea QS N/A 11/29/17 16:00 12/29/17 15:59 UNV Torsemide (Demadex Tab) 20 mg BID PO 11/29/17 09:00 12/29/17 08:59 UNV Objective Vital Signs Date Time Temp Pulse Resp B/P (MAP) Pulse Ox O2 Delivery O2 Flow Rate FiO2 11/29/17 07:28 36.9 99 16 114/74 (87) 97 11/29/17 06:18 100 114/72 11/29/17 04:30 94 Room Air 11/29/17 03:43 36.8 92 20 104/72 (83) 94 11/29/17 00:33 112 116/68 11/29/17 00:01 94 Room Air 11/28/17 23:40 37.0 110 18 116/68 (84) 94 Room Air 11/28/17 20:00 97 Room Air 11/28/17 19:21 37.2 116 18 126/77 (93) 97 Room Air 11/28/17 16:05 36.6 104 20 98 Room Air 11/28/17 16:04 103 121/66 11/28/17 16:00 Room Air 11/28/17 12:00 Room Air 11/28/17 11:20 36.9 100 20 97 Room Air 11/28/17 11:20 104 112/65 Physical Exam General Appearance: no apparent distress, + pertinent finding (chronically ill appearing) ENT: + pertinent finding (+hearing aid on R side) Respiratory/Chest: no respiratory distress, no accessory muscle use, + decreased breath sounds, + rhonchi Cardiovascular: no JVD, no murmur, + tachycardia, + irregularly irregular Abdomen: normal bowel sounds, non tender, soft Extremities: normal range of motion, no calf tenderness, + pedal edema, + swelling, + pertinent finding (+2 pitting edema b/l LE) Laboratory Results Last 24 Hours Test 11/29/17 06:13 White Blood Count 1.37 K/uL Red Blood Count 2.92 M/uL Hemoglobin 8.5 g/dL Hematocrit 24.6 % Mean Corpuscular Volume 84.2 fL Mean Corpuscular Hemoglobin 29.1 pg Mean Corpuscular Hemoglobin Concent 34.6 g/dl RDW Standard Deviation 44.8 fL RDW Coefficient of Variation 14.8 % Platelet Count 26 K/uL Mean Platelet Volume 9.8 fL Sodium Level 135 mmol/L Potassium Level 3.6 mmol/L Chloride Level 105 mmol/L Carbon Dioxide Level 27 mmol/L Anion Gap 3.0 mmol/L Blood Urea Nitrogen 4 mg/dl Creatinine 0.66 mg/dl Est Creatinine Clear Calc Drug Dose 154.5 ml/min Estimated GFR () 125.3 Estimated GFR (Non- 108.1 BUN/Creatinine Ratio 6.5 Random Glucose 76 mg/dl Calcium Level 7.9 mg/dl Phosphorus Level 1.5 mg/dl Magnesium Level 1.7 mg/dl Assessment and Plan This is a 57 year old male with a PMH of small cell lung carcinoma with ongoing chemo and radiation tx., chronic atrial fibrillation on Eliquis, diastolic CHF, CKD stage 3 - presents with difficulty and painful swallowing likely secondary to radiation induced esophagitis Radiation-Induced Esophagitis 1/4 intermittently has difficulty with food back on solids should be on slippery foods continue Diflucan for 21 days total PPI BID x one week and then PPI daily appreciate pain management input - Fentanyl patch increased, plan to taper off LEAD SECURITY OFFICER and IV Dilaudid 11/28/17 for now, no PEG tube currently on full liquid diet continue Diflucan currently on a Dilaudid LEAD SECURITY OFFICER and receiving Dilaudid PRN for breakthrough; pain management consulted for outpatient pain medications; fentanyl patch on 11/27/17 he is a clear aspiration risk; occasional coughing episodes while eating tolerated clears - and he is requested more of a full liquid diet, which I will order GI consult appreciated - discussed PEG tube options - patient is thinking about it, though leaning against this Diflucan in case candidal esophagitis is a possibility continue pain medications including Fentanyl patch and Dilaudid PRN viscous lidocaine PRN Pancytopenia/Chemo-Induced Neutropenia 1/ platelets stable Hgb at 8.5 WBC >1 patient is doing well, appreciate hem/onc input 11/28/17 s/p 4 units of pRBCs total; Hgb at 8.5 platelets are down to 29, will hold off on transfusion unless epistaxis recurs WBC improved appreciate hem/onc input 11/27/17 patient presents with pancytopenia, including thrombocytopenia, neutropenia and anemia patient has received 3 units of platelets and 2 units of pRBCs so far he had some epistaxis yesterday, likely secondary to low platelets, which have come up today (11/27/17) Filgrastim x3 days, now completed Eliquis d/c'd Hgb is now low at 6.9; platelets improving will transfuse another 2 units of pRBCs - recheck H/H four hours post- transfusion Chronic Atrial Fibrillation patient with chronic A. fib, rates are currently elevated ranging from 100s-130s not tolerated PO b-christian well; continue IV Lopressor PRN will transfuse two more units of pRBCs and monitor HRs (total 4 units pRBCs) no anticoagulation due to pancytopenia/anemia and epistaxis Chronic Diastolic CHF stopped IVFs restarted Torsemide 20mg q12 (home dose) SIRS criteria 11/29 blood culture positive x1 - gram positive cocci Vancomycin restarted 11/28/17 blood cultures negative x2 will d/c antibiotics today 11/27/17 meets SIRS secondary to tachycardia and neutropenia likely not infectious, though aspiration pneumonia is a risk for now, will continue Cefepime and Vanco preliminary blood cultures negative, will await final cultures Acute Kidney Injury - resolved creatinine 1.45 on admission given IVFs and creat improved will advance diet and monitor creatinine Electrolyte Imbalances low phos, Mg, and calcium given Mg, which is now wnl will replace phos and Mg recheck in AM DVT ppx SCDs DNR palliative care consult pending
[2017-11-29] MEDS: LEVOTHYROXINE SODIUM INJ 25 MCG in SYRINGE 0 ML IV SCH (09:21)
[2017-11-29] MEDS: PANTOprazole INJ 40 MG in SYRINGE 0 ML IV SCH ×2 (09:21→21:10)
[2017-11-29] MEDS: FERROUS SULFATE 325 MG TAB PO SCH (09:22)
[2017-11-29] MEDS: CHOLECALCIFEROL 1000 INTER.UNIT TAB PO SCH (09:22)
[2017-11-29] MEDS: MAGNESIUM OXIDE 400 MG TAB PO SCH (09:22)
[2017-11-29] MEDS: FENTANYL 75 MCG/HR TDSY TD SCH (09:35)
[2017-11-29] MEDS ORDERED: FENTANYL PATCH REMOVE & WASTE ONE (09:40)
[2017-11-29] MEDS: THIAMINE HCL INJ 100 MG in SYRINGE 9 ML IV SCH ×2 (09:40→21:10)
[2017-11-29] MEDS ORDERED: FENTANYL PATCH REMOVE & WASTE SCH (10:00)
--- NOTE | 2017-11-29 11:18 | Palliative Care Progress Note ---
Palliative Care Progress Note Date of Service Nov 29, 2017. Subjective Pt evaluation today including: conversation w/ patient, physical exam, chart review Pain: 5/10 PO Intake: tolerating some of diet Voiding: no voiding problems -Patient is still pretty well controlled today. -Able to tolerate diet without vomiting. -Spoke with patient about setting up outpatient palliative appointment with Dr. Cedilol. Review of Systems Constitutional: No fever, No chills, No weakness Respiratory: No cough, No shortness of breath, No dyspnea on exertion Cardiac: + edema, No chest pain Abdomen: + pain, No nausea, No vomiting Male : No problem reported Psychiatric: + depression symptoms (situational), No anxiety Objective Vital Signs Date Time Temp Pulse Resp B/P (MAP) Pulse Ox O2 Delivery O2 Flow Rate FiO2 11/29/17 08:00 Room Air 11/29/17 07:28 36.9 99 16 114/74 (87) 97 11/29/17 06:18 100 114/72 11/29/17 04:30 94 Room Air 11/29/17 03:43 36.8 92 20 104/72 (83) 94 11/29/17 00:33 112 116/68 11/29/17 00:01 94 Room Air 11/28/17 23:40 37.0 110 18 116/68 (84) 94 Room Air 11/28/17 20:00 97 Room Air 11/28/17 19:21 37.2 116 18 126/77 (93) 97 Room Air 11/28/17 16:05 36.6 104 20 98 Room Air 11/28/17 16:04 103 121/66 11/28/17 16:00 Room Air 11/28/17 12:00 Room Air 11/28/17 11:20 36.9 100 20 97 Room Air 11/28/17 11:20 104 112/65 Physical Exam General Appearance: no apparent distress, + obese ENT: hearing grossly normal (with implant and device) Neck: supple, no JVD Respiratory/Chest: lungs clear, no respiratory distress, no accessory muscle use, + decreased breath sounds (RLL) Cardiovascular: + tachycardia, + irregularly irregular, + normal peripheral pulses, + pertinent finding (+2 pitting edema to BLE) Abdomen: normal bowel sounds, non tender, soft Neurologic/Psychiatric: alert, normal mood/affect, oriented x 3 Laboratory Results Last 24 Hours Test 11/29/17 06:13 White Blood Count 1.37 K/uL Red Blood Count 2.92 M/uL Hemoglobin 8.5 g/dL Hematocrit 24.6 % Mean Corpuscular Volume 84.2 fL Mean Corpuscular Hemoglobin 29.1 pg Mean Corpuscular Hemoglobin Concent 34.6 g/dl RDW Standard Deviation 44.8 fL RDW Coefficient of Variation 14.8 % Platelet Count 26 K/uL Mean Platelet Volume 9.8 fL Sodium Level 135 mmol/L Potassium Level 3.6 mmol/L Chloride Level 105 mmol/L Carbon Dioxide Level 27 mmol/L Anion Gap 3.0 mmol/L Blood Urea Nitrogen 4 mg/dl Creatinine 0.66 mg/dl Est Creatinine Clear Calc Drug Dose 154.5 ml/min Estimated GFR () 125.3 Estimated GFR (Non- 108.1 BUN/Creatinine Ratio 6.5 Random Glucose 76 mg/dl Calcium Level 7.9 mg/dl Phosphorus Level 1.5 mg/dl Magnesium Level 1.7 mg/dl Assessment and Plan Problem list: Pain- back, esophagus/chest, lungs, abdomen Lung cancer Radiation-induced esophagitis/odynophagia Neutropenia pancytopenia Afib, chronic GENE-resolved Goals of care (Z51.5) Palliative care recs: -Continuing current medical management. -Patient being seen by pain management. They increased fentanyl patch to 75mcg. -Dilaudid [employer] continues. Total of 11mg in 24 hours [id number]. -Patient will get set up with Dr. Cedillo as an outpatient to follow up with palliative care. -Plans to continue treatment for cancer at this time. Thank you again for this consult. I will sign off for now but please don't hesitate to contact me with any further palliative care needs. Palliative Performance Scale: 70 % Continued [facility] stay due to: inadequate oral pain control, multiple IV medications needed Discharge planning: uncertain
--- NOTE | 2017-11-29 11:27 | Pharmacy Progress Note ---
Pharmacy Abx Dose Short Note Date of Service Nov 29, 2017. Assessment & Plan Assessment * 57 year old male resuming vancomycin IV therapy for gram + myrna bacteremia (1 of 2 blood cultures from 11/25); possible gram + rods (corynebacterium, propionibacterium, bacillus, clostridia), ? contaminant ? * Patient had received vancomycin IV 11/25 thru 11/28, last dose given 11/28 at ~ 0200 * He had originally presented with pancytopenia (neutropenia) secondary to chemo / radiation for sm cell lung CA. * Both WBC and neut counts improving. Afebrile. VSS. Tachycardia continues * Fluconazole IV continues for esophagitis Plan Vancomycin * Loading dose: 2500mg IV x 1 given at 0237 this AM as patient's last dose given > 24 hrs ago and estimated half-life ~6-7 hours * Maintenance dose: 1500mg (~14mg/kg) IV Q 10 hours * Goal trough level for bacteremia : 15 to 20 mcg/mL * Trough level ordered for: 12/01/17 w/ maintenance dose Pharmacy will continue to follow and will adjust dose/frequency as necessary. Thank you.
[2017-11-29] MEDS: VANCOMYCIN INJ 1,500 MG in SODIUM CHLORIDE 0.9% 500ML 500 ML IV SCH ×2 (12:26→22:04)
[2017-11-29] MEDS: TORSEMIDE 20 MG TAB PO SCH ×2 (12:28→21:11)
[2017-11-29] MEDS: FLUCONAZOLE / NSS 200 MG in PREMIXED NSS 100 ML IV SCH (16:14)
[2017-11-29] MEDS: SODIUM CHLORIDE 0.9% 1000ML 1,000 ML IV SCH (16:33)
--- NOTE | 2017-11-29 16:58 | Hematology/Oncology Prog Note ---
Hematology/Onc Progress Note Date of Service Nov 29, 2017. Diagnoses Small Cell lung carcinoma Esophagitis Pancytopenia secondary to chemotherapy and radiation Medications Medications Administered Medications (Trade) Dose Ordered Sig/Elizabeth Route Start Time Stop Time Status Last Admin Dose Admin Sodium Chloride 2,000 ml @ 999 mls/hr Q2H1M STAT IV 11/24/17 14:02 11/24/17 16:07 DC 11/24/17 14:21 999 MLS/HR Ondansetron HCl (Zofran Inj) 4 mg NOW STAT IV 11/24/17 14:02 11/24/17 14:04 DC 11/24/17 14:21 4 MG Morphine Sulfate (MoRPHine SULFATE INJ) 6 mg NOW STAT IV 11/24/17 14:02 11/24/17 14:04 DC 11/24/17 14:22 6 MG Ondansetron HCl (Zofran Inj) 4 mg Q6H PRN IV 11/24/17 17:00 11/25/17 16:37 DC 11/25/17 07:46 4 MG Levothyroxine Sodium (Synthroid Tab) 112 mcg DAILYBB PO 11/25/17 06:30 11/25/17 16:37 DC 11/25/17 07:57 112 MCG Oxycodone HCl (Roxicodone Immediate Rel Tab) 5 mg Q4H PRN PO 11/24/17 17:15 11/26/17 12:31 DC 11/26/17 05:06 5 MG Apixaban (Eliquis Tab) 5 mg BID PO 11/24/17 20:00 11/26/17 12:31 DC 11/24/17 19:49 5 MG Cholecalciferol (Vitamin D Tab) 2,000 inter.unit DAILY PO 11/25/17 08:00 12/25/17 08:59 11/29/17 09:22 2,000 INTER.UNIT Ferrous Sulfate (Feosol Tab) 325 mg DAILY PO 11/25/17 08:00 12/25/17 08:59 11/29/17 09:22 325 MG Lactobacillus Acidophilus (Lactinex Granules Pack) 1 gm BID PEG 11/24/17 20:00 11/24/17 20:30 DC 11/24/17 19:49 1 GM Magnesium Oxide (Mag-Ox Tab) 400 mg Q2D@0900 PO 11/25/17 09:00 12/25/17 08:59 11/29/17 09:22 400 MG Filgrastim (Neupogen Sq) 480 mcg DAILY SC 11/25/17 08:00 11/26/17 12:00 DC 11/26/17 10:19 480 MCG Filgrastim (Neupogen Sq) 480 mcg 1830 ONCE SC 11/24/17 18:30 11/24/17 18:31 DC 11/24/17 20:50 480 MCG Sodium Chloride 1,000 ml @ 100 mls/hr Q10H IV 11/24/17 17:15 11/27/17 10:20 DC 11/27/17 05:58 100 MLS/HR Lactobacillus Acidophilus (Floranex Tab) 4 tab BID PO 11/25/17 08:00 11/25/17 16:43 DC 11/25/17 07:57 4 TAB Hydromorphone HCl (Dilaudid Inj) 0.5 mg Q3H PRN IV 11/24/17 21:15 12/08/17 21:14 11/26/17 12:01 0.5 MG Hydromorphone HCl (Dilaudid Inj) 0.5 mg 2112 ONCE IV 11/24/17 21:12 11/24/17 21:18 DC 11/24/17 21:28 0.5 MG Magnesium Sulfate 4 gm/Sodium Phosphate 15 mmol/ Sodium Chloride 513 ml @ 128 mls/hr 0900 ONCE IV 11/25/17 09:00 11/25/17 13:00 DC 11/25/17 09:34 128 MLS/HR Bisacodyl (Dulcolax Supp) 10 mg STK-MED ONCE .ROUTE 11/25/17 10:21 11/25/17 10:22 DC 11/25/17 10:25 10 MG Ondansetron HCl (Zofran Inj) 4 mg Q6H IV 11/25/17 17:00 12/24/17 16:59 11/29/17 16:33 4 MG Thiamine HCl 100 mg/Syringe 10 ml @ 2 mls/min BID IV 11/25/17 20:00 11/30/17 19:59 11/29/17 09:40 2 MLS/MIN Acetaminophen/ Hydrocodone Bitart (Lortab Elixir) 15 ml TIDM PRN PO 11/25/17 16:30 1/14/18 16:29 11/25/17 19:12 15 ML Lidocaine HCl (Viscous Lidocaine 2% Soln) 20 ml Q6H PRN MT 11/25/17 16:30 12/25/17 16:29 11/26/17 13:39 20 ML Sodium Chloride 1,000 ml @ 999 mls/hr Q1H1M IV 11/25/17 16:30 11/25/17 17:30 DC 11/25/17 16:52 999 MLS/HR Polyethylene (Miralax Powder Packet) 17 gm BID PO 11/25/17 20:00 12/25/17 19:59 11/28/17 08:45 17 GM Cefepime HCl 2000 mg/Syringe 20 ml @ 5 mls/min Q8H IV 11/25/17 17:30 11/28/17 08:40 DC 11/28/17 02:00 5 MLS/MIN Vancomycin HCl 2500 mg/Sodium Chloride 550 ml @ 200 mls/hr TODAY@1745 ONCE IV 11/25/17 17:45 11/25/17 20:29 DC 11/25/17 19:13 200 MLS/HR Metoprolol Tartrate (Lopressor Iv) 5 mg Q6 IV. 11/25/17 18:30 12/25/17 18:29 11/29/17 12:28 5 MG Vancomycin HCl 1500 mg/Sodium Chloride 530 ml @ 200 mls/hr Q12H IV 11/26/17 06:00 11/27/17 10:51 DC 11/27/17 05:57 200 MLS/HR Levothyroxine Sodium 25 mcg/ Syringe 1.25 ml @ 2 mls/min DAILY@09 IV 11/26/17 09:00 12/26/17 08:59 11/29/17 09:21 2 MLS/MIN Sodium Chloride 1,000 ml @ 250 mls/hr Q4H IV 11/25/17 21:00 11/26/17 00:59 DC 11/25/17 21:07 250 MLS/HR Calcium Gluconate 2000 mg/Sodium Chloride 70 ml @ 70 mls/hr NOW ONCE IV 11/26/17 09:00 11/26/17 09:59 DC 11/26/17 09:11 70 MLS/HR Sodium Phosphate 30 mmol/Sodium Chloride 510 ml @ 88 mls/hr NOW ONCE IV 11/26/17 09:00 11/26/17 14:47 DC 11/26/17 10:16 88 MLS/HR Fentanyl (Duragesic Patch) 25 mcg Q3D@1000 TD 11/26/17 10:00 11/28/17 12:03 DC 11/26/17 10:22 25 MCG Miscellaneous Information (Check Fentanyl Patch Placement) 1 ea QS N/A 11/26/17 16:00 11/28/17 12:03 DC 11/28/17 07:18 1 EA Diphenhydramine HCl (Benadryl Inj) 25 mg ONE ONCE IV 11/26/17 09:45 11/26/17 09:46 DC 11/26/17 13:37 25 MG Acetaminophen 650 mg/Empty Bag 65 ml @ 260 mls/hr ONE ONCE IV 11/26/17 10:00 11/26/17 10:14 DC 11/26/17 13:36 260 MLS/HR Hydromorphone HCl (Dilaudid [employer]) 25 mg PRN PRN IV 11/26/17 12:45 12/10/17 12:44 11/28/17 21:46 25 MG Sodium Chloride 1,000 ml @ 15 mls/hr Q24H IV 11/26/17 12:31 12/26/17 12:30 11/29/17 16:33 15 MLS/HR Fluconazole/ Sodium Chloride 200 mg/Prmx 100 ml @ 100 mls/hr TODAY@1600,1700 IV 11/26/17 16:00 11/26/17 17:59 DC 11/26/17 16:42 100 MLS/HR Fluconazole/ Sodium Chloride 200 mg/Prmx 100 ml @ 100 mls/hr DAILY@1600 IV 11/27/17 16:00 12/05/17 16:59 11/29/17 16:14 100 MLS/HR Pantoprazole Sodium 40 mg/ Syringe 10 ml @ 5 mls/min DAILY@,21 IV 11/27/17 21:00 12/27/17 20:59 11/29/17 09:21 5 MLS/MIN Potassium Phosphate 15 mmol/ Sodium Chloride 255 ml @ 88 mls/hr TODAY@1030 ONCE IV 11/27/17 10:30 11/27/17 13:23 DC 11/27/17 11:50 88 MLS/HR Vancomycin HCl 1500 mg/Sodium Chloride 530 ml @ 200 mls/hr Q10H IV 11/27/17 16:00 11/28/17 08:40 DC 11/28/17 02:11 200 MLS/HR Sodium Chloride ([place]her[place] Nasal [place]) 225 sprays STK-MED ONCE .ROUTE 11/27/17 18:11 11/27/17 18:12 DC 11/28/17 21:39 225 SPRAYS Sodium Phosphate 15 mmol/Sodium Chloride 255 ml @ 88 mls/hr TODAY@0745 ONCE IV 11/28/17 07:45 11/28/17 10:38 DC 11/28/17 08:41 88 MLS/HR Fentanyl (Duragesic Patch) 50 mcg Q3D@1230 TD 11/28/17 12:30 11/29/17 08:28 DC 11/28/17 12:17 50 MCG Miscellaneous (Fentanyl Patch Remove & Waste) 1 ea Q3D@1229 N/A 11/28/17 12:29 11/29/17 09:12 DC 11/28/17 12:20 1 EA Miscellaneous Information (Check Fentanyl Patch Placement) 1 ea QS N/A 11/28/17 16:00 11/29/17 08:28 DC 11/29/17 00:34 1 EA Vancomycin HCl 2500 mg/Sodium Chloride 550 ml @ 200 mls/hr NOW STAT IV 11/29/17 02:00 11/29/17 04:44 DC 11/29/17 02:37 200 MLS/HR Magnesium Sulfate 1 gm/Prmx 100 ml @ 100 mls/hr NOW STAT IV 11/29/17 07:47 11/29/17 08:46 DC 11/29/17 09:21 100 MLS/HR Sodium Phosphate 21 mmol/Sodium Chloride 507 ml @ 144.857 mls/hr NOW STAT IV 11/29/17 07:49 11/29/17 11:18 DC 11/29/17 09:21 144.857 MLS/HR Fentanyl (Duragesic Patch) 75 mcg Q72H TD 11/29/17 09:30 12/13/17 09:29 11/29/17 09:35 75 MCG Miscellaneous Information (Check Fentanyl Patch Placement) 1 ea QS N/A 11/29/17 16:00 12/29/17 15:59 11/29/17 16:14 1 EA Torsemide (Demadex Tab) 20 mg BID PO 11/29/17 09:30 12/29/17 09:29 11/29/17 12:28 20 MG Miscellaneous (Fentanyl Patch Remove & Waste) 1 ea 0940 ONCE N/A 11/29/17 09:40 11/29/17 09:41 DC 11/29/17 09:40 1 EA Vancomycin HCl 1500 mg/Sodium Chloride 530 ml @ 200 mls/hr Q10H IV 11/29/17 12:00 12/13/17 11:59 11/29/17 12:26 200 MLS/HR Subjective He seems to be doing well. He is eating dinner tonight with some chicken. He states he is able to swallow the food fairly well. Remains afebrile. He remains also cytopenic. Review of Systems: Constitutional: Negative for night sweats, or fever Eyes: Negative for event change of vision ENT: Negative for epistaxis, nasal discharge, sore throat, or deafness Cardiovascular: Negative for chest pain, palpitations, dizziness, diaphoresis Respiratory: Negative for new shortness of breath,hemoptysis, or purulent cough Gastrointestinal: Negative for diarrhea, hematemesis, melena, nausea, vomiting , or dyspepsia Integumentary (skin): Negative for rash or jaundice discoloration Genitourinary: Negative for urinary frequency, hematuria, or dysuria Neurological: Negative for weakness, seizure activity, headache, or dizziness Lymphatic/Hematologic: Negative for petechiae, bleeding or new adenopathy Musculoskeletal: Negative for new joint or back pain Allergic/Immunologic: Negative for unusual rash or pruritis. Vital Signs Vital Signs Past 12 Hours Date Time Temp Pulse Resp B/P (MAP) Pulse Ox O2 Delivery O2 Flow Rate FiO2 11/29/17 16:02 36.7 91 22 114/78 (90) 92 Room Air 11/29/17 12:28 93 114/74 11/29/17 12:00 Room Air 11/29/17 11:41 36.7 109 18 118/79 (92) 96 11/29/17 08:00 Room Air 11/29/17 07:28 36.9 99 16 114/74 (87) 97 11/29/17 06:18 100 114/72 Physical Exam Constitutional: vitals are stable. Alert alopecic gentleman Eyes: Eyes are DANG EOMI without conjuctival erythema or icterus. ENT: External examination was negative for masses. Neck: Negative for masses or palpable thyromegaly Respiratory: Lung sounds were generally clear bilaterally Cardiovascular: Heart was RRR without significant murmur, gallops aoe rubs Gastrointestinal: No palpable hepatic or splenomegaly. The abdomen was soft with normal bowel sounds. Lymphatic system: there was no palpable peripheral lymphadenopathy Musculoskeletal System: The musculoskeletal system seemed concordant with age. Skin: The skin was negative for jaundice. Neurologic exam: The exam was negative for any focal findings. Deep tendon reflexes were equal and symmetrical. Psychiatric exam: Was essentially negative with normal mood and effect. Extremities: without progressive edema Laboratory Last 24 Hours Test 11/29/17 06:13 White Blood Count 1.37 K/uL Red Blood Count 2.92 M/uL Hemoglobin 8.5 g/dL Hematocrit 24.6 % Mean Corpuscular Volume 84.2 fL Mean Corpuscular Hemoglobin 29.1 pg Mean Corpuscular Hemoglobin Concent 34.6 g/dl RDW Standard Deviation 44.8 fL RDW Coefficient of Variation 14.8 % Platelet Count 26 K/uL Mean Platelet Volume 9.8 fL Sodium Level 135 mmol/L Potassium Level 3.6 mmol/L Chloride Level 105 mmol/L Carbon Dioxide Level 27 mmol/L Anion Gap 3.0 mmol/L Blood Urea Nitrogen 4 mg/dl Creatinine 0.66 mg/dl Est Creatinine Clear Calc Drug Dose 154.5 ml/min Estimated GFR () 125.3 Estimated GFR (Non- 108.1 BUN/Creatinine Ratio 6.5 Random Glucose 76 mg/dl Calcium Level 7.9 mg/dl Phosphorus Level 1.5 mg/dl Magnesium Level 1.7 mg/dl Assessment & Plan Pancytopenia secondary to chemotherapy. Counts are recovering but it has been slow. Hopefully we will see more of a jump in his white cell and platelet numbers of the next day or 2. He was scheduled for his next chemotherapy to begin December 03 but of course and will have to be delayed for at least a week. We will arrange for that through our clinic. Doses of the chemotherapy will also need to be reduced to try to keep him out of trouble with cytopenia going forward.
[2017-11-30] VITALS (8 sets, daily range): BP systolic 94–125; BP diastolic 65–74; PULSE 90–112; TEMP 36.4–37.2; O2SAT 93–99
[2017-11-30] MEDS: CHECK FENTANYL PATCH PLACEMENT SCH ×3 (00:10→16:15)
[2017-11-30] MEDS: METOPROLOL TARTRATE 1 MG/ML VIAL IV. SCH ×2 (00:11→06:18)
[2017-11-30] MEDS: ONDANSETRON INJ 2 MG/ML 2 ML VIAL IV SCH ×3 (05:12→17:00)
[2017-11-30 05:54] LABS: HEMATOCRIT 27.8 % (42-52); HEMOGLOBIN 9.2 g/dL (14.0-18.0); MEAN CELL VOLUME 84.5 fL (80-100); MEAN CORPUSCULAR HGB CONC 33.1 g/dl (32-36); MEAN PLATELET VOLUME 9.9 fL (7.4-10.4); PLATELET COUNT 26 K/uL (130-400); RED CELL DISTRIBUTION WIDTH CV 14.6 % (11.5-14.5); RED CELL DISTRIBUTION WIDTH SD 44.5 fL (36.4-46.3); WHITE BLOOD COUNT 1.61 K/uL (4.8-10.8)
[2017-11-30 06:23] LABS: CALCIUM 8.4 mg/dl (8.5-10.1); CREATININE 0.88 mg/dl (0.60-1.40); PHOSPHORUS 2.1 mg/dl (2.5-4.9)
[2017-11-30] MEDS ORDERED: POTASSIUM PHOS 3 MMOL/1 ML INFUSION IV STA (07:57)
[2017-11-30] MEDS ORDERED: POTASSIUM PHOSPHATE INJ 24 MMOL in SODIUM CHLORIDE 0.9% 500ML 500 ML IV ONE (08:45)
[2017-11-30] MEDS: VANCOMYCIN INJ 1,500 MG in SODIUM CHLORIDE 0.9% 500ML 500 ML IV SCH (08:45)
--- NOTE | 2017-11-30 08:55 | Pain Management Progress Note ---
Pain Management Progress Note Date of Service Nov 30, 2017. Subjective Mr. Glasgow is reporting improved pain control over the past 24 hours with further adjustment of fentanyl to 75 g per hour dose. He continues utilize Dilaudid [employer]IVING for breakthrough pain. He is reporting less sedation with diminished use. He continues reported his pain ranges to a 0-6/10. Patient denies change in location or characteristic of his pain continues to describe pain in the right anterior chest wall and sternal region as well as the throat with swallowing. He denies any noticeable side effects from dosage adjustment of the fentanyl. He has no further constitutional complaints at this time. Plan of care discussed with Dr. Thomas. Objective Vital Signs: Last Vital Signs Documentation Date Time Temp Pulse Resp B/P (MAP) Pulse Ox O2 Delivery O2 Flow Rate FiO2 11/30/17 07:48 36.5 112 18 125/65 (85) 94 Room Air 11/26/17 22:45 0.0 Physical Exam: Gen.: Mr. Glasgow is sitting up upon entering the room in no acute distress. Speech and thought process appropriate. Mood and affect appropriate. Cognition intact. Chest: Moderately tender over the sternum and left anterior/lateral chest wall to direct palpation. He remains tender with AP and lateral compression. Neurologic: Cranial nerves grossly intact. Ambulatory function not witnessed. Laboratory Laboratory Findings 11/30/17 05:23 Red Blood Count 3.29 L, Mean Corpuscular Volume 84.5, Mean Corpuscular Hemoglobin 28.0, Mean Corpuscular Hemoglobin Concent 33.1, Mean Platelet Volume 9.9 Assessment 1. Small cell lung cancer 2. History of large mediastinal mass 3. Chest pain secondary to above 4. Esophagitis-likely radiation induced 5. Chemotherapy-induced neutropenia Recommendations 1. Will plan to maintain fentanyl at 75 g per hour dose at this time. Will continue to monitor usage a [employer] GIVING Dilaudid and adjust fentanyl accordingly. Patient utilized a 8.75 mg a [employer]IV[employer] Dilaudid over the past 24 hours which is diminished over his prior 24-hour period. No adjustments will be made to [employer]NU[employer] GIVING Dilaudid at this time. 2. Will continue to follow.
[2017-11-30] MEDS: POLYETHYLENE (MIRALAX) 17 GM PACK PO SCH ×2 (09:00→21:00)
[2017-11-30] MEDS: THIAMINE HCL INJ 100 MG in SYRINGE 9 ML IV SCH (09:04)
[2017-11-30] MEDS: POTASSIUM CHLR 10 MEQ / WTR 10 MEQ in PREMIXED WATER 100 ML IV SCH ×2 (09:04→16:19)
[2017-11-30] MEDS: PANTOprazole INJ 40 MG in SYRINGE 0 ML IV SCH (09:04)
[2017-11-30] MEDS: MAGNESIUM SULFATE 1GM / D5W 1 GM in PREMIXED IN D5W 100 ML IV SCH ×2 (09:04→16:19)
[2017-11-30] MEDS: FERROUS SULFATE 325 MG TAB PO SCH (09:05)
[2017-11-30] MEDS: TORSEMIDE 20 MG TAB PO SCH ×2 (09:05→21:44)
[2017-11-30] MEDS: CHOLECALCIFEROL 1000 INTER.UNIT TAB PO SCH (09:05)
--- NOTE | 2017-11-30 10:07 | Hematology/Oncology Prog Note ---
Hematology/Onc Progress Note Date of Service Nov 30, 2017. Diagnoses Small Cell lung carcinoma Esophagitis Pancytopenia secondary to chemotherapy and radiation Medications Medications Administered Medications (Trade) Dose Ordered Sig/Elizabeth Route Start Time Stop Time Status Last Admin Dose Admin Sodium Chloride 2,000 ml @ 999 mls/hr Q2H1M STAT IV 11/24/17 14:02 11/24/17 16:07 DC 11/24/17 14:21 999 MLS/HR Ondansetron HCl (Zofran Inj) 4 mg NOW STAT IV 11/24/17 14:02 11/24/17 14:04 DC 11/24/17 14:21 4 MG Morphine Sulfate (MoRPHine SULFATE INJ) 6 mg NOW STAT IV 11/24/17 14:02 11/24/17 14:04 DC 11/24/17 14:22 6 MG Ondansetron HCl (Zofran Inj) 4 mg Q6H PRN IV 11/24/17 17:00 11/25/17 16:37 DC 11/25/17 07:46 4 MG Levothyroxine Sodium (Synthroid Tab) 112 mcg DAILYBB PO 11/25/17 06:30 11/25/17 16:37 DC 11/25/17 07:57 112 MCG Oxycodone HCl (Roxicodone Immediate Rel Tab) 5 mg Q4H PRN PO 11/24/17 17:15 11/26/17 12:31 DC 11/26/17 05:06 5 MG Apixaban (Eliquis Tab) 5 mg BID PO 11/24/17 20:00 11/26/17 12:31 DC 11/24/17 19:49 5 MG Cholecalciferol (Vitamin D Tab) 2,000 inter.unit DAILY PO 11/25/17 08:00 12/25/17 08:59 11/30/17 09:05 2,000 INTER.UNIT Ferrous Sulfate (Feosol Tab) 325 mg DAILY PO 11/25/17 08:00 12/25/17 08:59 11/30/17 09:05 325 MG Lactobacillus Acidophilus (Lactinex Granules Pack) 1 gm BID PEG 11/24/17 20:00 11/24/17 20:30 DC 11/24/17 19:49 1 GM Magnesium Oxide (Mag-Ox Tab) 400 mg Q2D@0900 PO 11/25/17 09:00 12/25/17 08:59 11/29/17 09:22 400 MG Filgrastim (Neupogen Sq) 480 mcg DAILY SC 11/25/17 08:00 11/26/17 12:00 DC 11/26/17 10:19 480 MCG Filgrastim (Neupogen Sq) 480 mcg 1830 ONCE SC 11/24/17 18:30 11/24/17 18:31 DC 11/24/17 20:50 480 MCG Sodium Chloride 1,000 ml @ 100 mls/hr Q10H IV 11/24/17 17:15 11/27/17 10:20 DC 11/27/17 05:58 100 MLS/HR Lactobacillus Acidophilus (Floranex Tab) 4 tab BID PO 11/25/17 08:00 11/25/17 16:43 DC 11/25/17 07:57 4 TAB Hydromorphone HCl (Dilaudid Inj) 0.5 mg Q3H PRN IV 11/24/17 21:15 12/08/17 21:14 11/26/17 12:01 0.5 MG Hydromorphone HCl (Dilaudid Inj) 0.5 mg 2112 ONCE IV 11/24/17 21:12 11/24/17 21:18 DC 11/24/17 21:28 0.5 MG Magnesium Sulfate 4 gm/Sodium Phosphate 15 mmol/ Sodium Chloride 513 ml @ 128 mls/hr 0900 ONCE IV 11/25/17 09:00 11/25/17 13:00 DC 11/25/17 09:34 128 MLS/HR Bisacodyl (Dulcolax Supp) 10 mg STK-MED ONCE .ROUTE 11/25/17 10:21 11/25/17 10:22 DC 11/25/17 10:25 10 MG Ondansetron HCl (Zofran Inj) 4 mg Q6H IV 11/25/17 17:00 12/24/17 16:59 11/30/17 05:12 4 MG Thiamine HCl 100 mg/Syringe 10 ml @ 2 mls/min BID IV 11/25/17 20:00 11/30/17 09:32 DC 11/30/17 09:04 2 MLS/MIN Acetaminophen/ Hydrocodone Bitart (Lortab Elixir) 15 ml TIDM PRN PO 11/25/17 16:30 12/09/17 16:29 11/25/17 19:12 15 ML Lidocaine HCl (Viscous Lidocaine 2% Soln) 20 ml Q6H PRN MT 11/25/17 16:30 12/25/17 16:29 11/26/17 13:39 20 ML Sodium Chloride 1,000 ml @ 999 mls/hr Q1H1M IV 11/25/17 16:30 11/25/17 17:30 DC 11/25/17 16:52 999 MLS/HR Polyethylene (Miralax Powder Packet) 17 gm BID PO 11/25/17 20:00 12/25/17 19:59 11/28/17 08:45 17 GM Cefepime HCl 2000 mg/Syringe 20 ml @ 5 mls/min Q8H IV 11/25/17 17:30 11/28/17 08:40 DC 11/28/17 02:00 5 MLS/MIN Vancomycin HCl 2500 mg/Sodium Chloride 550 ml @ 200 mls/hr TODAY@1745 ONCE IV 11/25/17 17:45 11/25/17 20:29 DC 11/25/17 19:13 200 MLS/HR Metoprolol Tartrate (Lopressor Iv) 5 mg Q6 IV. 11/25/17 18:30 12/25/17 18:29 11/30/17 06:18 5 MG Vancomycin HCl 1500 mg/Sodium Chloride 530 ml @ 200 mls/hr Q12H IV 11/26/17 06:00 11/27/17 10:51 DC 11/27/17 05:57 200 MLS/HR Levothyroxine Sodium 25 mcg/ Syringe 1.25 ml @ 2 mls/min DAILY@09 IV 11/26/17 09:00 11/30/17 09:25 DC 11/29/17 09:21 2 MLS/MIN Sodium Chloride 1,000 ml @ 250 mls/hr Q4H IV 11/25/17 21:00 11/26/17 00:59 DC 11/25/17 21:07 250 MLS/HR Calcium Gluconate 2000 mg/Sodium Chloride 70 ml @ 70 mls/hr NOW ONCE IV 11/26/17 09:00 11/26/17 09:59 DC 11/26/17 09:11 70 MLS/HR Sodium Phosphate 30 mmol/Sodium Chloride 510 ml @ 88 mls/hr NOW ONCE IV 11/26/17 09:00 11/26/17 14:47 DC 11/26/17 10:16 88 MLS/HR Fentanyl (Duragesic Patch) 25 mcg Q3D@1000 TD 11/26/17 10:00 11/28/17 12:03 DC 11/26/17 10:22 25 MCG Miscellaneous Information (Check Fentanyl Patch Placement) 1 ea QS N/A 11/26/17 16:00 11/28/17 12:03 DC 11/28/17 07:18 1 EA Diphenhydramine HCl (Benadryl Inj) 25 mg ONE ONCE IV 11/26/17 09:45 11/26/17 09:46 DC 11/26/17 13:37 25 MG Acetaminophen 650 mg/Empty Bag 65 ml @ 260 mls/hr ONE ONCE IV 11/26/17 10:00 11/26/17 10:14 DC 11/26/17 13:36 260 MLS/HR Hydromorphone HCl (Dilaudid Flotation Tender) 25 mg PRN PRN IV 11/26/17 12:45 12/10/17 12:44 11/28/17 21:46 25 MG Sodium Chloride 1,000 ml @ 15 mls/hr Q24H IV 11/26/17 12:31 12/26/17 12:30 11/29/17 16:33 15 MLS/HR Fluconazole/ Sodium Chloride 200 mg/Prmx 100 ml @ 100 mls/hr TODAY@1600,1700 IV 11/26/17 16:00 11/26/17 17:59 DC 11/26/17 16:42 100 MLS/HR Fluconazole/ Sodium Chloride 200 mg/Prmx 100 ml @ 100 mls/hr DAILY@1600 IV 11/27/17 16:00 11/30/17 09:32 DC 11/29/17 16:14 100 MLS/HR Pantoprazole Sodium 40 mg/ Syringe 10 ml @ 5 mls/min DAILY@09,21 IV 11/27/17 21:00 11/30/17 09:32 DC 11/30/17 09:04 5 MLS/MIN Potassium Phosphate 15 mmol/ Sodium Chloride 255 ml @ 88 mls/hr TODAY@1030 ONCE IV 11/27/17 10:30 11/27/17 13:23 DC 11/27/17 11:50 88 MLS/HR Vancomycin HCl 1500 mg/Sodium Chloride 530 ml @ 200 mls/hr Q10H IV 11/27/17 16:00 11/28/17 08:40 DC 11/28/17 02:11 200 MLS/HR Sodium Chloride ([place] Nasal [place]) 225 sprays STK-MED ONCE .ROUTE 11/27/17 18:11 11/27/17 18:12 DC 11/28/17 21:39 225 SPRAYS Sodium Phosphate 15 mmol/Sodium Chloride 255 ml @ 88 mls/hr TODAY@0745 ONCE IV 11/28/17 07:45 11/28/17 10:38 DC 11/28/17 08:41 88 MLS/HR Fentanyl (Duragesic Patch) 50 mcg Q3D@1230 TD 11/28/17 12:30 11/29/17 08:28 DC 11/28/17 12:17 50 MCG Miscellaneous (Fentanyl Patch Remove & Waste) 1 ea Q3D@1229 N/A 11/28/17 12:29 11/29/17 09:12 DC 11/28/17 12:20 1 EA Miscellaneous Information (Check Fentanyl Patch Placement) 1 ea QS N/A 11/28/17 16:00 11/29/17 08:28 DC 11/29/17 00:34 1 EA Vancomycin HCl 2500 mg/Sodium Chloride 550 ml @ 200 mls/hr NOW STAT IV 11/29/17 02:00 11/29/17 04:44 DC 11/29/17 02:37 200 MLS/HR Magnesium Sulfate 1 gm/Prmx 100 ml @ 100 mls/hr NOW STAT IV 11/29/17 07:47 11/29/17 08:46 DC 11/29/17 09:21 100 MLS/HR Sodium Phosphate 21 mmol/Sodium Chloride 507 ml @ 144.857 mls/hr NOW STAT IV 11/29/17 07:49 11/29/17 11:18 DC 11/29/17 09:21 144.857 MLS/HR Fentanyl (Duragesic Patch) 75 mcg Q72H TD 11/29/17 09:30 12/13/17 09:29 11/29/17 09:35 75 MCG Miscellaneous Information (Check Fentanyl Patch Placement) 1 ea QS N/A 11/29/17 16:00 2/3/18 15:59 11/30/17 08:00 1 EA Torsemide (Demadex Tab) 20 mg BID PO 11/29/17 09:30 12/29/17 09:29 11/30/17 09:05 20 MG Miscellaneous (Fentanyl Patch Remove & Waste) 1 ea 0940 ONCE N/A 11/29/17 09:40 11/29/17 09:41 DC 11/29/17 09:40 1 EA Vancomycin HCl 1500 mg/Sodium Chloride 530 ml @ 200 mls/hr Q10H IV 11/29/17 12:00 12/13/17 11:59 11/30/17 08:45 200 MLS/HR Potassium Chloride 10 meq/ Prmx 100 ml @ 100 mls/hr Q1H IV 11/30/17 08:30 11/30/17 10:29 11/30/17 09:04 100 MLS/HR Magnesium Sulfate 1 gm/Prmx 100 ml @ 100 mls/hr Q1H IV 11/30/17 08:30 11/30/17 10:29 11/30/17 09:04 100 MLS/HR Potassium Phosphate 24 mmol/ Sodium Chloride 508 ml @ 88 mls/hr TODAY@0845 ONCE IV 11/30/17 08:45 11/30/17 14:31 11/30/17 09:04 88 MLS/HR Subjective Seems to do well. Really offers no new complaints today. He remains afebrile. He does have occasional epistaxis Review of Systems: Constitutional: Negative for night sweats, or fever Eyes: Negative for event change of vision ENT: Negative for epistaxis, nasal discharge, sore throat, or deafness Cardiovascular: Negative for new chest pain, palpitations, dizziness, diaphoresis Respiratory: Negative for new shortness of breath,hemoptysis, or purulent cough Gastrointestinal: Negative for diarrhea, hematemesis, melena, nausea, vomiting , or dyspepsia Integumentary (skin): Negative for rash or jaundice discoloration Genitourinary: Negative for urinary frequency, hematuria, or dysuria Neurological: Negative for weakness, seizure activity, headache, or dizziness Lymphatic/Hematologic: Negative for petechiae, bleeding or new adenopathy Musculoskeletal: Negative for new joint or back pain Allergic/Immunologic: Negative for unusual rash or pruritis. Vital Signs Vital Signs Past 12 Hours Date Time Temp Pulse Resp B/P (MAP) Pulse Ox O2 Delivery O2 Flow Rate FiO2 11/30/17 07:48 36.5 112 18 125/65 (85) 94 Room Air 11/30/17 06:18 121 101/76 11/30/17 05:00 93 Room Air 11/30/17 05:00 109/70 (83) 11/30/17 03:38 37.2 110 22 94/67 (76) 93 Room Air 11/30/17 00:11 104 121/80 11/30/17 00:01 94 Room Air 11/29/17 23:35 36.9 90 21 121/80 (94) 94 Room Air Physical Exam Constitutional: vitals are stable. alopecic delightful gentleman. Eyes: Eyes are DANG EOMI without conjuctival erythema or icterus. ENT: External examination was negative for masses. Neck: Negative for masses or palpable thyromegaly Respiratory: Lung sounds were generally clear bilaterally Cardiovascular: Heart was RRR without significant murmur, gallops aoe rubs Gastrointestinal: No palpable hepatic or splenomegaly. The abdomen was soft with normal bowel sounds. Lymphatic system: there was no palpable peripheral lymphadenopathy Musculoskeletal System: The musculoskeletal system seemed concordant with age. Skin: The skin was negative for jaundice. Neurologic exam: The exam was negative for any focal findings. Deep tendon reflexes were equal and symmetrical. Psychiatric exam: Was essentially negative with normal mood and effect. Extremites: without worsening edema Laboratory Last 24 Hours Test 11/30/17 05:23 White Blood Count 1.61 K/uL Red Blood Count 3.29 M/uL Hemoglobin 9.2 g/dL Hematocrit 27.8 % Mean Corpuscular Volume 84.5 fL Mean Corpuscular Hemoglobin 28.0 pg Mean Corpuscular Hemoglobin Concent 33.1 g/dl Platelet Count 26 K/uL Mean Platelet Volume 9.9 fL RDW Standard Deviation 44.5 fL RDW Coefficient of Variation 14.6 % Neutrophils % (Manual) 83.9 % Lymphocytes % (Manual) 8.9 % Monocytes % (Manual) 3.6 % Eosinophils % (Manual) 3.6 % Neutrophils # (Manual) 1.35 K/uL Total Absolute Neutrophils 1.35 K/uL Lymphocytes # (Manual) 0.14 K/uL Total Absolute Lymphocytes 0.14 K/uL Monocytes # (Manual) 0.06 K/uL Eosinophils # (Manual) 0.06 K/uL Hyposegmented Neutrophils 1+ Hypogranular Neutrophils OCCASIONAL Toxic Granulation 2+ Dohle Bodies 1+ Sodium Level 135 mmol/L Potassium Level 3.0 mmol/L Chloride Level 98 mmol/L Carbon Dioxide Level 32 mmol/L Anion Gap 5.0 mmol/L Blood Urea Nitrogen 4 mg/dl Creatinine 0.88 mg/dl Est Creatinine Clear Calc Drug Dose 115.6 ml/min Estimated GFR () 111.3 Estimated GFR (Non- 96.0 BUN/Creatinine Ratio 4.7 Random Glucose 88 mg/dl Calcium Level 8.4 mg/dl Phosphorus Level 2.1 mg/dl Magnesium Level 1.3 mg/dl Assessment & Plan Pancytopenia secondary to chemotherapy. Counts are recovering but it has been slow. He has not been on feel gastrum but now his AGC is above 1000 and no need to begin that. Platelet numbers remain low but no transfusions are necessary. Once he has made to switch away from IV pain medicine he can be discharged to be followed for his next course of chemotherapy in our clinic on the .
--- NOTE | 2017-11-30 10:14 | Progress Note ---
Subjective Date of Service: Nov 30, 2017. Subjective Pt evaluation today including: conversation w/ patient, physical exam, lab review, review of studies, review of inpatient medication list Saw/examined the patient in room 208 Problem List Medical Problems: (1) Abdominal pain Status: Chronic (2) Anticoagulants,Lt,Current Use Status: Chronic (3) Atrial fibrillation Status: Chronic (4) Bowel obstruction Status: Acute (5) Congestive Heart Failure Nos Status: Chronic (6) Coronary Atherosclerosis Of [place] Coronary Vessel Status: Chronic (7) Dehydration Status: Acute (8) Diabetes mellitus type 2 Status: Chronic (9) Hyperlipidemia Status: Chronic (10) Hypertensive disorder, systemic arterial Status: Chronic (11) Hypothyroidism Status: Chronic (12) Obstructive Sleep Apnea (Adult) (Pediatric) Status: Chronic (13) Renal insufficiency Status: Chronic (14) Right lumbar radiculitis Status: Acute (15) SOB (shortness of breath) Status: Acute (16) Substernal chest pain Status: Acute (17) Upper abdominal pain Status: Acute (18) Vomiting Status: Acute Review of Systems Constitutional: No fever, No chills, No weakness ENT: + trouble swallowing (improving) Respiratory: No cough, No sputum, No shortness of breath Cardiac: + chest pain, + edema, No palpitations Abdomen: No pain, No nausea, No vomiting, No diarrhea Heme: No abnormal bleeding/bruising Medications Current Inpatient Medications Medications (Trade) Dose Ordered Sig/Elizabeth Route Start Time Stop Time Status Last Admin Dose Admin Cyclobenzaprine HCl (Flexeril Tab) 10 mg HS PRN PO 11/24/17 17:15 12/24/17 17:14 Eszopiclone (Lunesta Tab) 1 mg HS PRN PO 11/24/17 17:15 12/24/17 17:14 Nitroglycerin (Nitrostat Tab) 0.4 mg UD PRN SL 11/24/17 17:15 12/24/17 17:14 Cholecalciferol (Vitamin D Tab) 2,000 inter.unit DAILY PO 11/25/17 08:00 12/25/17 08:59 11/30/17 09:05 2,000 INTER.UNIT Ferrous Sulfate (Feosol Tab) 325 mg DAILY PO 11/25/17 08:00 12/25/17 08:59 11/30/17 09:05 325 MG Magnesium Oxide (Mag-Ox Tab) 400 mg Q2D@0900 PO 11/25/17 09:00 12/25/17 08:59 11/29/17 09:22 400 MG Hydromorphone HCl (Dilaudid Inj) 0.5 mg Q3H PRN IV 11/24/17 21:15 12/08/17 21:14 11/26/17 12:01 0.5 MG Ondansetron HCl (Zofran Inj) 4 mg Q6H IV 11/25/17 17:00 12/24/17 16:59 11/30/17 05:12 4 MG Acetaminophen/ Hydrocodone Bitart (Lortab Elixir) 15 ml TIDM PRN PO 11/25/17 16:30 12/09/17 16:29 11/25/17 19:12 15 ML Lidocaine HCl (Viscous Lidocaine 2% Soln) 20 ml Q6H PRN MT 11/25/17 16:30 12/25/17 16:29 11/26/17 13:39 20 ML Polyethylene (Miralax Powder Packet) 17 gm BID PO 11/25/17 20:00 12/25/17 19:59 11/28/17 08:45 17 GM Metoprolol Tartrate (Lopressor Iv) 5 mg Q6 IV. 11/25/17 18:30 12/25/17 18:29 11/30/17 06:18 5 MG Naloxone HCl (Narcan Inj) 0.1 mg Q5M PRN IV 11/26/17 12:45 12/26/17 12:44 Hydromorphone HCl (Dilaudid [place] Operator) 25 mg PRN PRN IV 11/26/17 12:45 12/10/17 12:44 11/28/17 21:46 25 MG Sodium Chloride 1,000 ml @ 15 mls/hr Q24H IV 11/26/17 12:31 12/26/17 12:30 11/29/17 16:33 15 MLS/HR Ioversol (Optiray 320) 100 ml UD PRN IV 11/27/17 12:00 12/01/17 11:59 Vancomycin HCl (Consult) 1 ea UD PRN N/A 11/29/17 02:15 12/29/17 02:14 Fentanyl (Duragesic Patch) 75 mcg Q72H TD 11/29/17 09:30 12/13/17 09:29 11/29/17 09:35 75 MCG Miscellaneous (Fentanyl Patch Remove & Waste) 1 ea Q3D N/A 12/02/17 09:29 01/01/18 09:28 Miscellaneous Information (Check Fentanyl Patch Placement) 1 ea QS N/A 11/29/17 16:00 12/29/17 15:59 11/30/17 08:00 1 EA Torsemide (Demadex Tab) 20 mg BID PO 11/29/17 09:30 12/29/17 09:29 11/30/17 09:05 20 MG Vancomycin HCl 1500 mg/Sodium Chloride 530 ml @ 200 mls/hr Q10H IV 11/29/17 12:00 12/13/17 11:59 11/30/17 08:45 200 MLS/HR Potassium Chloride 10 meq/ Prmx 100 ml @ 100 mls/hr Q1H IV 11/30/17 08:30 11/30/17 10:29 11/30/17 09:04 100 MLS/HR Magnesium Sulfate 1 gm/Prmx 100 ml @ 100 mls/hr Q1H IV 11/30/17 08:30 11/30/17 10:29 11/30/17 09:04 100 MLS/HR Potassium Chloride (Klor-Con Tab) 60 meq BID PO 11/30/17 09:00 12/30/17 08:59 Potassium Phosphate 24 mmol/ Sodium Chloride 508 ml @ 88 mls/hr TODAY@0845 ONCE IV 11/30/17 08:45 11/30/17 14:31 11/30/17 09:04 88 MLS/HR Non-Formulary Medication (Pravastatin Sodium ) 80 mg DAILY PO 12/01/17 09:00 12/31/17 08:59 UNV Fluconazole (Diflucan Tab) 100 mg QAM PO 12/01/17 09:00 12/11/17 08:59 UNV Pantoprazole Sodium (Protonix Tab) 40 mg BID PO 11/30/17 21:00 12/30/17 20:59 UNV Thiamine HCl (Vitamin B-1 Tab) 100 mg QAM PO 12/01/17 09:00 12/31/17 08:59 UNV Objective Vital Signs Date Time Temp Pulse Resp B/P (MAP) Pulse Ox O2 Delivery O2 Flow Rate FiO2 11/30/17 07:48 36.5 112 18 125/65 (85) 94 Room Air 11/30/17 06:18 121 101/76 11/30/17 05:00 93 Room Air 11/30/17 05:00 109/70 (83) 11/30/17 03:38 37.2 110 22 94/67 (76) 93 Room Air 11/30/17 00:11 104 121/80 11/30/17 00:01 94 Room Air 11/29/17 23:35 36.9 90 21 121/80 (94) 94 Room Air 11/29/17 20:00 94 Room Air 11/29/17 19:45 36.3 98 20 118/64 (82) 94 Room Air 11/29/17 18:11 101 115/75 11/29/17 16:02 36.7 91 22 114/78 (90) 92 Room Air 11/29/17 16:00 92 Room Air 11/29/17 12:28 93 114/74 11/29/17 12:00 Room Air 11/29/17 11:41 36.7 109 18 118/79 (92) 96 Physical Exam General Appearance: no apparent distress Respiratory/Chest: lungs clear, normal breath sounds, no respiratory distress, no accessory muscle use Cardiovascular: no murmur, + tachycardia, + irregularly irregular Abdomen: normal bowel sounds, non tender, soft Extremities: + pedal edema, + swelling (+1 pitting edema b/l LE) Neurologic/Psychiatric: alert, normal mood/affect Laboratory Results Last 24 Hours Test 11/30/17 05:23 White Blood Count 1.61 K/uL Red Blood Count 3.29 M/uL Hemoglobin 9.2 g/dL Hematocrit 27.8 % Mean Corpuscular Volume 84.5 fL Mean Corpuscular Hemoglobin 28.0 pg Mean Corpuscular Hemoglobin Concent 33.1 g/dl Platelet Count 26 K/uL Mean Platelet Volume 9.9 fL RDW Standard Deviation 44.5 fL RDW Coefficient of Variation 14.6 % Neutrophils % (Manual) 83.9 % Lymphocytes % (Manual) 8.9 % Monocytes % (Manual) 3.6 % Eosinophils % (Manual) 3.6 % Neutrophils # (Manual) 1.35 K/uL Total Absolute Neutrophils 1.35 K/uL Lymphocytes # (Manual) 0.14 K/uL Total Absolute Lymphocytes 0.14 K/uL Monocytes # (Manual) 0.06 K/uL Eosinophils # (Manual) 0.06 K/uL Hyposegmented Neutrophils 1+ Hypogranular Neutrophils OCCASIONAL Toxic Granulation 2+ Dohle Bodies 1+ Sodium Level 135 mmol/L Potassium Level 3.0 mmol/L Chloride Level 98 mmol/L Carbon Dioxide Level 32 mmol/L Anion Gap 5.0 mmol/L Blood Urea Nitrogen 4 mg/dl Creatinine 0.88 mg/dl Est Creatinine Clear Calc Drug Dose 115.6 ml/min Estimated GFR () 111.3 Estimated GFR (Non- 96.0 BUN/Creatinine Ratio 4.7 Random Glucose 88 mg/dl Calcium Level 8.4 mg/dl Phosphorus Level 2.1 mg/dl Magnesium Level 1.3 mg/dl Assessment and Plan This is a 57 year old male with a PMH of small cell lung carcinoma with ongoing chemo and radiation tx., chronic atrial fibrillation on Eliquis, diastolic CHF, CKD stage 3 - presents with difficulty and painful swallowing likely secondary to radiation induced esophagitis Radiation-Induced Esophagitis 11/30 will switch IV meds to PO today Diflucan 100mg daily for a total of 3 weeks PPI BID to total one week, and then change to Protonix daily slippery foods tapering FUEL MANAGER pump, Fentanyl patch as per pain management 11/29 intermittently has difficulty with food back on solids should be on slippery foods continue Diflucan for 21 days total PPI BID x one week and then PPI daily appreciate pain management input - Fentanyl patch increased, plan to taper off FUEL MANAGER and IV Dilaudid 11/28/17 for now, no PEG tube currently on full liquid diet continue Diflucan currently on a Dilaudid FUEL MANAGER and receiving Dilaudid PRN for breakthrough; pain management consulted for outpatient pain medications; fentanyl patch on 11/27/17 he is a clear aspiration risk; occasional coughing episodes while eating tolerated clears - and he is requested more of a full liquid diet, which I will order GI consult appreciated - discussed PEG tube options - patient is thinking about it, though leaning against this Diflucan in case candidal esophagitis is a possibility continue pain medications including Fentanyl patch and Dilaudid PRN viscous lidocaine PRN Pancytopenia/Chemo-Induced Neutropenia 11/30 Hgb, WBC, platelets have stabilized no transfusion is necessary at this time appreciate hem/onc input 11/29 platelets stable Hgb at 8.5 WBC >1 patient is doing well, appreciate hem/onc input 11/28/17 s/p 4 units of pRBCs total; Hgb at 8.5 platelets are down to 29, will hold off on transfusion unless epistaxis recurs WBC improved appreciate hem/onc input 11/27/17 patient presents with pancytopenia, including thrombocytopenia, neutropenia and anemia patient has received 3 units of platelets and 2 units of pRBCs so far he had some epistaxis yesterday, likely secondary to low platelets, which have come up today (11/27/17) Filgrastim x3 days, now completed Eliquis d/c'd Hgb is now low at 6.9; platelets improving will transfuse another 2 units of pRBCs - recheck H/H four hours post- transfusion Chronic Atrial Fibrillation patient with chronic A. fib, rates are currently elevated ranging from 100s-130s not tolerated PO b-christian well; continue IV Lopressor PRN will transfuse two more units of pRBCs and monitor HRs (total 4 units pRBCs) no anticoagulation due to pancytopenia/anemia and epistaxis Chronic Diastolic CHF stopped IVFs restarted Torsemide 20mg q12 (home dose) SIRS criteria 11/29 blood culture positive x1 - gram positive cocci Vancomycin restarted 11/28/17 blood cultures negative x2 will d/c antibiotics today 11/27/17 meets SIRS secondary to tachycardia and neutropenia likely not infectious, though aspiration pneumonia is a risk for now, will continue Cefepime and Vanco preliminary blood cultures negative, will await final cultures Acute Kidney Injury - resolved creatinine 1.45 on admission given IVFs and creat improved will advance diet and monitor creatinine Electrolyte Imbalances low phos, Mg, and calcium given Mg, which is now wnl will replace phos and Mg recheck in AM DVT ppx SCDs DNR palliative care consult pending Continued [facility] stay due to: multiple IV medications needed Discharge planning: uncertain
[2017-11-30] MEDS: POTASSIUM CHLORIDE 20 MEQ TABCR PO SCH ×2 (12:12→21:43)
--- NOTE | 2017-11-30 16:00 | DIAGNOSTIC IMAGING REPORT ---
CHEST ONE VIEW PORTABLE CLINICAL HISTORY: S/P PICC Line Placement COMPARISON STUDY: Chest radiograph November 24, 2017. FINDINGS: The tip of the left PICC projects over the distal SVC. There is no pneumothorax. Small right and trace left pleural effusions are present. Cardiomegaly is unchanged. Mediastinal and left hilar enlargement is noted. There is suspected mild pulmonary edema. IMPRESSION: 1. Tip of left PICC projects over the distal SVC. 2. Small right and trace left pleural effusions. 3. Mild pulmonary edema. 4. Mild mediastinal and left hilar enlargement which may be related to lymphadenopathy as shown on prior chest CT. Electronically signed by: Abdifatah Bledsoe M.D. 11/30/2017 3:58 PM Dictated Date/Time: 11/30/2017 3:56 PM
[2017-11-30] MEDS: SODIUM CHLORIDE 0.9% 1000ML 1,000 ML IV SCH (16:20)
[2017-11-30] MEDS ORDERED: VANCOMYCIN TROUGH ONE (17:30)
[2017-11-30] MEDS: PANTOprazole SOD 40 MG TAB PO SCH (21:43)
[2017-11-30] MEDS: PRAVASTATIN SOD 40 MG TAB PO SCH (21:43)
[2017-12-01] MEDS: ONDANSETRON INJ 2 MG/ML 2 ML VIAL IV SCH ×5 (00:05→23:05)
[2017-12-01] MEDS: CHECK FENTANYL PATCH PLACEMENT SCH ×4 (00:06→23:05)
[2017-12-01 03:45] VITALS: BP 108/64; PULSE 100; TEMP 36.8; O2SAT 96
[2017-12-01 07:18] LABS: HEMATOCRIT 24.3 % (42-52); HEMOGLOBIN 8.2 g/dL (14.0-18.0); MEAN CELL VOLUME 85.3 fL (80-100); MEAN CORPUSCULAR HEMOGLOBIN 28.8 pg (25-34); MEAN CORPUSCULAR HGB CONC 33.7 g/dl (32-36); MEAN PLATELET VOLUME 10.3 fL (7.4-10.4); PLATELET COUNT 24 K/uL (130-400); RED CELL DISTRIBUTION WIDTH CV 14.7 % (11.5-14.5); RED CELL DISTRIBUTION WIDTH SD 45.5 fL (36.4-46.3); WHITE BLOOD COUNT 1.42 K/uL (4.8-10.8)
[2017-12-01 07:28] LABS: CALCIUM 8.4 mg/dl (8.5-10.1); CREATININE 0.92 mg/dl (0.60-1.40); PHOSPHORUS 2.4 mg/dl (2.5-4.9); POTASSIUM 3.5 mmol/L (3.5-5.1)
[2017-12-01 08:16] VITALS: BP 124/66; PULSE 107; TEMP 36.8; O2SAT 96
[2017-12-01] MEDS: TORSEMIDE 20 MG TAB PO SCH ×2 (08:27→20:45)
[2017-12-01] MEDS: PANTOprazole SOD 40 MG TAB PO SCH ×2 (08:27→20:45)
[2017-12-01] MEDS: POTASSIUM CHLORIDE 20 MEQ TABCR PO SCH (08:27)
[2017-12-01] MEDS: FERROUS SULFATE 325 MG TAB PO SCH (08:28)
[2017-12-01] MEDS: MAGNESIUM OXIDE 400 MG TAB PO SCH ×2 (08:28→20:45)
[2017-12-01] MEDS: FLUCONAZOLE 100 MG TAB PO SCH (08:28)
[2017-12-01] MEDS: CHOLECALCIFEROL 1000 INTER.UNIT TAB PO SCH (08:28)
[2017-12-01] MEDS: METOPROLOL SUCC 25MG EXT REL TAB PO SCH (08:29)
[2017-12-01] MEDS: POLYETHYLENE (MIRALAX) 17 GM PACK PO SCH ×2 (08:29→20:45)
[2017-12-01] MEDS: THIAMINE HCL 100 MG TAB PO SCH (08:29)
[2017-12-01] MEDS ORDERED: POTASSIUM PHOS 3 MMOL/1 ML INFUSION IV STA (09:36)
[2017-12-01] MEDS: SODIUM CHLORIDE 0.9% 1000ML 1,000 ML IV SCH (10:41)
[2017-12-01] MEDS: MAGNESIUM SULFATE 1GM / D5W 1 GM in PREMIXED IN D5W 100 ML IV SCH ×2 (10:41→12:48)
[2017-12-01 11:54] VITALS: BP 114/72; PULSE 102; TEMP 36.3; O2SAT 100
[2017-12-01] MEDS ORDERED: POTASSIUM PHOSPHATE INJ 21 MMOL in SODIUM CHLORIDE 0.9% 500ML 500 ML IV ONE (12:00)
--- NOTE | 2017-12-01 15:29 | Progress Note ---
Subjective Date of Service: Dec 01, 2017. Subjective Pt evaluation today including: conversation w/ patient, physical exam, lab review, review of studies, review of inpatient medication list Saw/examined the patient in room 208 He had an episode of nausea/vomiting earlier today dysphagia improving, but nausea persists pain is improving with Fentanyl patch Problem List Medical Problems: (1) Abdominal pain Status: Chronic (2) Anticoagulants,Lt,Current Use Status: Chronic (3) Atrial fibrillation Status: Chronic (4) Bowel obstruction Status: Acute (5) Congestive Heart Failure Nos Status: Chronic (6) Coronary Atherosclerosis Of [place] Coronary Vessel Status: Chronic (7) Dehydration Status: Acute (8) Diabetes mellitus type 2 Status: Chronic (9) Hyperlipidemia Status: Chronic (10) Hypertensive disorder, systemic arterial Status: Chronic (11) Hypothyroidism Status: Chronic (12) Obstructive Sleep Apnea (Adult) (Pediatric) Status: Chronic (13) Renal insufficiency Status: Chronic (14) Right lumbar radiculitis Status: Acute (15) SOB (shortness of breath) Status: Acute (16) Substernal chest pain Status: Acute (17) Upper abdominal pain Status: Acute (18) Vomiting Status: Acute Review of Systems Constitutional: No fever, No chills, No weakness Respiratory: No shortness of breath Cardiac: No chest pain Abdomen: + nausea, + vomiting, No pain, No diarrhea Heme: No abnormal bleeding/bruising Medications Current Inpatient Medications Medications (Trade) Dose Ordered Sig/Elizabeth Route Start Time Stop Time Status Last Admin Dose Admin Cyclobenzaprine HCl (Flexeril Tab) 10 mg HS PRN PO 11/24/17 17:15 12/24/17 17:14 Eszopiclone (Lunesta Tab) 1 mg HS PRN PO 11/24/17 17:15 12/24/17 17:14 Nitroglycerin (Nitrostat Tab) 0.4 mg UD PRN SL 11/24/17 17:15 12/24/17 17:14 Cholecalciferol (Vitamin D Tab) 2,000 inter.unit DAILY PO 11/25/17 08:00 12/25/17 08:59 12/01/17 08:28 2,000 INTER.UNIT Ferrous Sulfate (Feosol Tab) 325 mg DAILY PO 11/25/17 08:00 12/25/17 08:59 12/01/17 08:28 325 MG Hydromorphone HCl (Dilaudid Inj) 0.5 mg Q3H PRN IV 11/24/17 21:15 12/08/17 21:14 11/26/17 12:01 0.5 MG Ondansetron HCl (Zofran Inj) 4 mg Q6H IV 11/25/17 17:00 12/24/17 16:59 12/01/17 10:40 4 MG Acetaminophen/ Hydrocodone Bitart (Lortab Elixir) 15 ml TIDM PRN PO 11/25/17 16:30 12/09/17 16:29 11/25/17 19:12 15 ML Lidocaine HCl (Viscous Lidocaine 2% Soln) 20 ml Q6H PRN MT 11/25/17 16:30 12/25/17 16:29 11/26/17 13:39 20 ML Polyethylene (Miralax Powder Packet) 17 gm BID PO 11/25/17 20:00 12/25/17 19:59 11/28/17 08:45 17 GM Naloxone HCl (Narcan Inj) 0.1 mg Q5M PRN IV 11/26/17 12:45 12/26/17 12:44 Hydromorphone HCl (Dilaudid Hand Cloth Folder) 25 mg PRN PRN IV 11/26/17 12:45 12/10/17 12:44 11/28/17 21:46 25 MG Sodium Chloride 1,000 ml @ 15 mls/hr Q24H IV 11/26/17 12:31 12/26/17 12:30 12/01/17 10:41 15 MLS/HR Fentanyl (Duragesic Patch) 75 mcg Q72H TD 11/29/17 09:30 12/13/17 09:29 11/29/17 09:35 75 MCG Miscellaneous (Fentanyl Patch Remove & Waste) 1 ea Q3D N/A 12/02/17 09:29 01/01/18 09:28 Miscellaneous Information (Check Fentanyl Patch Placement) 1 ea QS N/A 11/29/17 16:00 12/29/17 15:59 12/01/17 08:28 1 EA Torsemide (Demadex Tab) 20 mg BID PO 11/29/17 09:30 12/29/17 09:29 12/01/17 08:27 20 MG Potassium Chloride (Klor-Con Tab) 60 meq BID PO 11/30/17 09:00 12/30/17 08:59 12/01/17 08:27 60 MEQ Pravastatin Sodium (Pravachol Tab) 80 mg HS PO 11/30/17 21:00 12/30/17 20:59 11/30/17 21:43 80 MG Fluconazole (Diflucan Tab) 100 mg QAM PO 12/01/17 09:00 12/11/17 08:59 12/01/17 08:28 100 MG Pantoprazole Sodium (Protonix Tab) 40 mg BID PO 11/30/17 21:00 12/30/17 20:59 12/01/17 08:27 40 MG Thiamine HCl (Vitamin B-1 Tab) 100 mg QAM PO 12/01/17 09:00 12/31/17 08:59 12/01/17 08:29 100 MG Metoprolol Succinate (Toprol Xl Tab) 25 mg QAM PO 12/01/17 09:00 12/31/17 08:59 12/01/17 08:29 25 MG Heparin Sodium (Porcine) (Heparin 10 Unit/ ml 5 ml Flush) 5 ml PRN PRN FLUSH 11/30/17 16:30 12/30/17 16:29 Magnesium Oxide (Mag-Ox Tab) 400 mg BID PO 12/01/17 21:00 12/31/17 20:59 Potassium Phosphate 21 mmol/ Sodium Chloride 507 ml @ 144 mls/hr 1200 ONCE IV 12/01/17 12:00 12/01/17 15:31 12/01/17 10:41 144 MLS/HR Objective Vital Signs Date Time Temp Pulse Resp B/P (MAP) Pulse Ox O2 Delivery O2 Flow Rate FiO2 12/01/17 12:00 Room Air 12/01/17 11:54 36.3 102 20 114/72 (86) 100 Room Air 12/01/17 08:16 36.8 107 20 124/66 (85) 96 Room Air 12/01/17 08:00 Room Air 12/01/17 04:00 Room Air 12/01/17 03:45 36.8 100 19 108/64 (79) 96 Room Air 11/30/17 23:59 Room Air 11/30/17 23:45 36.9 90 19 116/65 (82) 95 Room Air 11/30/17 20:00 Room Air 11/30/17 19:04 37.0 107 21 106/73 (84) 97 Room Air 11/30/17 16:00 Room Air 11/30/17 15:52 36.4 101 20 105/74 (84) 95 Nasal Cannula Physical Exam General Appearance: no apparent distress Respiratory/Chest: lungs clear, normal breath sounds, no respiratory distress, no accessory muscle use Cardiovascular: regular rate, rhythm, no murmur Abdomen: normal bowel sounds, non tender, soft Extremities: + pertinent finding (+1 pitting edema b/l LE) Neurologic/Psychiatric: no motor/sensory deficits, alert, normal mood/affect Laboratory Results Last 24 Hours Test 12/01/17 06:09 White Blood Count 1.42 K/uL Red Blood Count 2.85 M/uL Hemoglobin 8.2 g/dL Hematocrit 24.3 % Mean Corpuscular Volume 85.3 fL Mean Corpuscular Hemoglobin 28.8 pg Mean Corpuscular Hemoglobin Concent 33.7 g/dl RDW Standard Deviation 45.5 fL RDW Coefficient of Variation 14.7 % Platelet Count 24 K/uL Mean Platelet Volume 10.3 fL Sodium Level 135 mmol/L Potassium Level 3.5 mmol/L Chloride Level 95 mmol/L Carbon Dioxide Level 34 mmol/L Anion Gap 6.0 mmol/L Blood Urea Nitrogen 6 mg/dl Creatinine 0.92 mg/dl Est Creatinine Clear Calc Drug Dose 110.3 ml/min Estimated GFR () 107.4 Estimated GFR (Non- 92.6 BUN/Creatinine Ratio 6.6 Random Glucose 100 mg/dl Calcium Level 8.4 mg/dl Phosphorus Level 2.4 mg/dl Magnesium Level 1.1 mg/dl Assessment and Plan This is a 57 year old male with a PMH of small cell lung carcinoma with ongoing chemo and radiation tx., chronic atrial fibrillation on Eliquis, diastolic CHF, CKD stage 3 - presents with difficulty and painful swallowing likely secondary to radiation induced esophagitis Radiation-Induced Esophagitis 12/01 continue PPI BID for now, then back to PPI daily in 1-2 days Diflucan 100mg daily for a total of 3 weeks Fentanyl patch at 75mcg will attempt to use Lortab before the METAL NEUTRALIZER pump and monitor pain management, oncology input appreciated once off of the IVs, we can d/c patient home off of all antibiotics 11/30 will switch IV meds to PO today Diflucan 100mg daily for a total of 3 weeks PPI BID to total one week, and then change to Protonix daily slippery foods tapering METAL NEUTRALIZER pump, Fentanyl patch as per pain management 11/29 intermittently has difficulty with food back on solids should be on slippery foods continue Diflucan for 21 days total PPI BID x one week and then PPI daily appreciate pain management input - Fentanyl patch increased, plan to taper off METAL NEUTRALIZER and IV Dilaudid 11/28/17 for now, no PEG tube currently on full liquid diet continue Diflucan currently on a Dilaudid METAL NEUTRALIZER and receiving Dilaudid PRN for breakthrough; pain management consulted for outpatient pain medications; fentanyl patch on 11/27/17 he is a clear aspiration risk; occasional coughing episodes while eating tolerated clears - and he is requested more of a full liquid diet, which I will order GI consult appreciated - discussed PEG tube options - patient is thinking about it, though leaning against this Diflucan in case candidal esophagitis is a possibility continue pain medications including Fentanyl patch and Dilaudid PRN viscous lidocaine PRN Pancytopenia/Chemo-Induced Neutropenia 11/30 Hgb, WBC, platelets have stabilized no transfusion is necessary at this time appreciate hem/onc input 11/29 platelets stable Hgb at 8.5 WBC >1 patient is doing well, appreciate hem/onc input 11/28/17 s/p 4 units of pRBCs total; Hgb at 8.5 platelets are down to 29, will hold off on transfusion unless epistaxis recurs WBC improved appreciate hem/onc input 11/27/17 patient presents with pancytopenia, including thrombocytopenia, neutropenia and anemia patient has received 3 units of platelets and 2 units of pRBCs so far he had some epistaxis yesterday, likely secondary to low platelets, which have come up today (11/27/17) Filgrastim x3 days, now completed Eliquis d/c'd Hgb is now low at 6.9; platelets improving will transfuse another 2 units of pRBCs - recheck H/H four hours post- transfusion Chronic Atrial Fibrillation patient with chronic A. fib, rates are currently elevated ranging from 100s-130s not tolerated PO b-christian well; continue IV Lopressor PRN will transfuse two more units of pRBCs and monitor HRs (total 4 units pRBCs) no anticoagulation due to pancytopenia/anemia and epistaxis Chronic Diastolic CHF stopped IVFs restarted Torsemide 20mg q12 (home dose) SIRS criteria 11/29 blood culture positive x1 - gram positive cocci Vancomycin restarted 11/28/17 blood cultures negative x2 will d/c antibiotics today 11/27/17 meets SIRS secondary to tachycardia and neutropenia likely not infectious, though aspiration pneumonia is a risk for now, will continue Cefepime and Vanco preliminary blood cultures negative, will await final cultures Acute Kidney Injury - resolved creatinine 1.45 on admission given IVFs and creat improved will advance diet and monitor creatinine Electrolyte Imbalances low phos, Mg, and calcium given Mg, which is now wnl will replace phos and Mg recheck in AM DVT ppx SCDs DNR palliative care consult pending Continued [facility] stay due to: multiple IV medications needed Discharge planning: uncertain
[2017-12-01 15:45] VITALS: BP 119/71; PULSE 97; TEMP 37.4; O2SAT 95
[2017-12-01 20:37] VITALS: BP 90/60; PULSE 107; TEMP 36.9; O2SAT 97
[2017-12-01] MEDS: POTASSIUM CHLORIDE PWD 20 MEQ PACK PO SCH (20:45)
[2017-12-01] MEDS: PRAVASTATIN SOD 40 MG TAB PO SCH (20:45)
[2017-12-01 23:40] VITALS: BP 104/72; PULSE 112; TEMP 36.8; O2SAT 91
[2017-12-02 03:58] VITALS: BP 96/62; PULSE 110; TEMP 36.9; O2SAT 91
[2017-12-02] MEDS: ONDANSETRON INJ 2 MG/ML 2 ML VIAL IV SCH ×4 (05:57→23:43)
[2017-12-02 07:51] VITALS: BP 93/65; PULSE 117; TEMP 36.8; O2SAT 96
[2017-12-02] MEDS: POLYETHYLENE (MIRALAX) 17 GM PACK PO SCH ×2 (08:14→21:23)
[2017-12-02] MEDS: CHECK FENTANYL PATCH PLACEMENT SCH ×3 (08:14→23:43)
[2017-12-02] MEDS: TORSEMIDE 20 MG TAB PO SCH ×2 (08:15→21:22)
[2017-12-02] MEDS: FERROUS SULFATE 325 MG TAB PO SCH (08:15)
[2017-12-02] MEDS: FLUCONAZOLE 100 MG TAB PO SCH (08:15)
[2017-12-02] MEDS: METOPROLOL SUCC 25MG EXT REL TAB PO SCH (08:16)
[2017-12-02] MEDS: THIAMINE HCL 100 MG TAB PO SCH (08:16)
[2017-12-02] MEDS: PANTOprazole SOD 40 MG TAB PO SCH ×2 (08:16→21:23)
[2017-12-02] MEDS: CHOLECALCIFEROL 1000 INTER.UNIT TAB PO SCH (08:16)
[2017-12-02] MEDS: MAGNESIUM OXIDE 400 MG TAB PO SCH ×2 (08:17→21:23)
[2017-12-02] MEDS: POTASSIUM CHLORIDE PWD 20 MEQ PACK PO SCH ×2 (08:17→21:22)
[2017-12-02] MEDS: FENTANYL 75 MCG/HR TDSY TD SCH (08:18)
[2017-12-02 08:38] LABS: HEMATOCRIT 25.4 % (42-52); HEMOGLOBIN 8.5 g/dL (14.0-18.0); MEAN CELL VOLUME 85.5 fL (80-100); MEAN CORPUSCULAR HEMOGLOBIN 28.6 pg (25-34); MEAN CORPUSCULAR HGB CONC 33.5 g/dl (32-36); MEAN PLATELET VOLUME 11.3 fL (7.4-10.4); PLATELET COUNT 34 K/uL (130-400); RED CELL DISTRIBUTION WIDTH SD 46.5 fL (36.4-46.3); WHITE BLOOD COUNT 1.26 K/uL (4.8-10.8)
[2017-12-02 08:43] LABS: BASO % 0.8 %; BASO ABS # 0.01 K/uL (0-0.2); EOS % 0.8 %; EOS ABS # 0.01 K/uL (0-0.5); IG# 0.02 K/uL (0.00-0.02); LYMPH % 15.9 %; MONO % 22.2 %; MONO ABS # 0.28 K/uL (0.11-0.59); NEUT % 58.7 %; NEUT ABS # 0.74 K/uL (1.4-6.5)
[2017-12-02 09:01] LABS: CALCIUM 8.9 mg/dl (8.5-10.1); CREATININE 1.11 mg/dl (0.60-1.40); POTASSIUM 3.9 mmol/L (3.5-5.1)
[2017-12-02 09:03] LABS: PHOSPHORUS 2.8 mg/dl (2.5-4.9)
[2017-12-02] MEDS ORDERED: FENTANYL PATCH REMOVE & WASTE SCH (09:29)
[2017-12-02] MEDS: MAGNESIUM SULFATE 1GM / D5W 1 GM in PREMIXED IN D5W 100 ML IV SCH ×4 (10:06→12:09)
[2017-12-02] MEDS: POT PHOSPHATE MONOBASIC W/ SOD TAB PO SCH ×3 (10:06→21:21)
[2017-12-02 12:33] VITALS: BP 93/66; PULSE 103; TEMP 36.7; O2SAT 97
[2017-12-02] MEDS: HYDROmorphone HCL 0.5MG/ML 50 ML CASSETTE IV PRN (12:33)
[2017-12-02 15:46] VITALS: BP 104/66; PULSE 95; TEMP 36.6; O2SAT 97
[2017-12-02] MEDS: SODIUM CHLORIDE 0.9% 1000ML 1,000 ML IV SCH (16:42)
--- NOTE | 2017-12-02 18:40 | Progress Note ---
Subjective Date of Service: Dec 02, 2017. Subjective Pt evaluation today including: conversation w/ patient, physical exam, lab review, review of studies, review of inpatient medication list Saw/examined the patient in room 208 He's doing well, improving swallowing with no pain still requiring BONDERIZER OPERATOR pump Problem List Medical Problems: (1) Abdominal pain Status: Chronic (2) Anticoagulants,Lt,Current Use Status: Chronic (3) Atrial fibrillation Status: Chronic (4) Bowel obstruction Status: Acute (5) Congestive Heart Failure Nos Status: Chronic (6) Coronary Atherosclerosis Of [place] Coronary Vessel Status: Chronic (7) Dehydration Status: Acute (8) Diabetes mellitus type 2 Status: Chronic (9) Hyperlipidemia Status: Chronic (10) Hypertensive disorder, systemic arterial Status: Chronic (11) Hypothyroidism Status: Chronic (12) Obstructive Sleep Apnea (Adult) (Pediatric) Status: Chronic (13) Renal insufficiency Status: Chronic (14) Right lumbar radiculitis Status: Acute (15) SOB (shortness of breath) Status: Acute (16) Substernal chest pain Status: Acute (17) Upper abdominal pain Status: Acute (18) Vomiting Status: Acute Review of Systems Constitutional: No fever, No chills, No weakness ENT: + trouble swallowing (improving) Respiratory: No cough, No sputum, No shortness of breath Cardiac: No chest pain Abdomen: No pain, No nausea, No vomiting, No diarrhea Medications Current Inpatient Medications Medications (Trade) Dose Ordered Sig/Elizabeth Route Start Time Stop Time Status Last Admin Dose Admin Cyclobenzaprine HCl (Flexeril Tab) 10 mg HS PRN PO 11/24/17 17:15 12/24/17 17:14 Eszopiclone (Lunesta Tab) 1 mg HS PRN PO 11/24/17 17:15 12/24/17 17:14 Nitroglycerin (Nitrostat Tab) 0.4 mg UD PRN SL 11/24/17 17:15 12/24/17 17:14 Cholecalciferol (Vitamin D Tab) 2,000 inter.unit DAILY PO 11/25/17 08:00 12/25/17 08:59 12/02/17 08:16 2,000 INTER.UNIT Ferrous Sulfate (Feosol Tab) 325 mg DAILY PO 11/25/17 08:00 12/25/17 08:59 12/02/17 08:15 325 MG Hydromorphone HCl (Dilaudid Inj) 0.5 mg Q3H PRN IV 11/24/17 21:15 12/08/17 21:14 11/26/17 12:01 0.5 MG Ondansetron HCl (Zofran Inj) 4 mg Q6H IV 11/25/17 17:00 12/24/17 16:59 12/02/17 16:42 4 MG Acetaminophen/ Hydrocodone Bitart (Lortab Elixir) 15 ml TIDM PRN PO 11/25/17 16:30 12/09/17 16:29 11/25/17 19:12 15 ML Lidocaine HCl (Viscous Lidocaine 2% Soln) 20 ml Q6H PRN MT 11/25/17 16:30 12/25/17 16:29 11/26/17 13:39 20 ML Polyethylene (Miralax Powder Packet) 17 gm BID PO 11/25/17 20:00 12/25/17 19:59 12/02/17 08:14 17 GM Naloxone HCl (Narcan Inj) 0.1 mg Q5M PRN IV 11/26/17 12:45 12/26/17 12:44 Hydromorphone HCl (Dilaudid Cyber Software Engineer) 25 mg PRN PRN IV 11/26/17 12:45 12/10/17 12:44 12/02/17 12:33 25 MG Sodium Chloride 1,000 ml @ 15 mls/hr Q24H IV 11/26/17 12:31 12/26/17 12:30 12/02/17 16:42 15 MLS/HR Fentanyl (Duragesic Patch) 75 mcg Q72H TD 11/29/17 09:30 12/13/17 09:29 12/02/17 08:18 75 MCG Miscellaneous (Fentanyl Patch Remove & Waste) 1 ea Q3D N/A 12/02/17 09:29 01/01/18 09:28 12/02/17 08:18 1 EA Miscellaneous Information (Check Fentanyl Patch Placement) 1 ea QS N/A 11/29/17 16:00 12/29/17 15:59 12/02/17 16:17 1 EA Torsemide (Demadex Tab) 20 mg BID PO 11/29/17 09:30 12/29/17 09:29 12/02/17 08:15 20 MG Pravastatin Sodium (Pravachol Tab) 80 mg HS PO 11/30/17 21:00 12/30/17 20:59 12/01/17 20:45 80 MG Fluconazole (Diflucan Tab) 100 mg QAM PO 12/01/17 09:00 12/11/17 08:59 12/02/17 08:15 100 MG Pantoprazole Sodium (Protonix Tab) 40 mg BID PO 11/30/17 21:00 12/30/17 20:59 12/02/17 08:16 40 MG Thiamine HCl (Vitamin B-1 Tab) 100 mg QAM PO 12/01/17 09:00 12/31/17 08:59 12/02/17 08:16 100 MG Metoprolol Succinate (Toprol Xl Tab) 25 mg QAM PO 12/01/17 09:00 12/31/17 08:59 12/02/17 08:16 25 MG Heparin Sodium (Porcine) (Heparin 10 Unit/ ml 5 ml Flush) 5 ml PRN PRN FLUSH 11/30/17 16:30 12/30/17 16:29 Magnesium Oxide (Mag-Ox Tab) 400 mg BID PO 12/01/17 21:00 12/31/17 20:59 12/02/17 08:17 400 MG Potassium Chloride (Klor-Con Pwd) 60 meq BID PO 12/01/17 21:00 12/31/17 20:59 12/02/17 08:17 60 MEQ Potassium/ Phosphorus/Sodium (Phospha 250 Neutral 155-852-130 Mg) 1 tab QID PO 12/02/17 13:00 01/01/18 12:59 12/02/17 16:42 1 TAB Objective Vital Signs Date Time Temp Pulse Resp B/P (MAP) Pulse Ox O2 Delivery O2 Flow Rate FiO2 12/02/17 16:00 Room Air 12/02/17 15:46 36.6 95 18 104/66 (79) 97 Room Air 12/02/17 12:33 36.7 103 20 93/66 (75) 97 Room Air 12/02/17 12:00 Room Air 12/02/17 08:00 Room Air 12/02/17 07:51 36.8 117 20 93/65 (74) 96 12/02/17 04:00 Room Air 12/02/17 03:58 36.9 110 18 96/62 (73) 91 Room Air 12/01/17 23:59 Room Air 12/01/17 23:40 36.8 112 18 104/72 (83) 91 Room Air 12/01/17 20:37 36.9 107 18 90/60 (70) 97 Room Air 12/01/17 20:00 Room Air Physical Exam General Appearance: no apparent distress Respiratory/Chest: lungs clear, normal breath sounds, no respiratory distress, no accessory muscle use Cardiovascular: regular rate, rhythm, no edema, no murmur Abdomen: normal bowel sounds, non tender, soft Extremities: normal inspection, no pedal edema Laboratory Results Last 24 Hours Test 12/02/17 07:50 White Blood Count 1.26 K/uL Red Blood Count 2.97 M/uL Hemoglobin 8.5 g/dL Hematocrit 25.4 % Mean Corpuscular Volume 85.5 fL Mean Corpuscular Hemoglobin 28.6 pg Mean Corpuscular Hemoglobin Concent 33.5 g/dl Platelet Count 34 K/uL Mean Platelet Volume 11.3 fL Neutrophils (%) (Auto) 58.7 % Lymphocytes (%) (Auto) 15.9 % Monocytes (%) (Auto) 22.2 % Eosinophils (%) (Auto) 0.8 % Basophils (%) (Auto) 0.8 % Neutrophils # (Auto) 0.74 K/uL Lymphocytes # (Auto) 0.20 K/uL Monocytes # (Auto) 0.28 K/uL Eosinophils # (Auto) 0.01 K/uL Basophils # (Auto) 0.01 K/uL RDW Standard Deviation 46.5 fL RDW Coefficient of Variation 15.0 % Immature Granulocyte % (Auto) 1.6 % Immature Granulocyte # (Auto) 0.02 K/uL Toxic Granulation 2+ Ovalocytes 1+ Stomatocytes 1+ Sodium Level 134 mmol/L Potassium Level 3.9 mmol/L Chloride Level 94 mmol/L Carbon Dioxide Level 31 mmol/L Anion Gap 9.0 mmol/L Blood Urea Nitrogen 9 mg/dl Creatinine 1.11 mg/dl Est Creatinine Clear Calc Drug Dose 87.3 ml/min Estimated GFR () 85.6 Estimated GFR (Non- 73.8 BUN/Creatinine Ratio 7.7 Random Glucose 100 mg/dl Calcium Level 8.9 mg/dl Phosphorus Level 2.8 mg/dl Magnesium Level 1.3 mg/dl Assessment and Plan This is a 57 year old male with a PMH of small cell lung carcinoma with ongoing chemo and radiation tx., chronic atrial fibrillation on Eliquis, diastolic CHF, CKD stage 3 - presents with difficulty and painful swallowing likely secondary to radiation induced esophagitis Radiation-Induced Esophagitis 12/02 PPI BID for another day and will d/c back on PPI daily Diflucan 100mg daily for a total of 3 weeks Fentanyl patch at 75mcg pain management, oncology input appreciated once off of BONDERIZER OPERATOR - he can be discharged 12/01 continue PPI BID for now, then back to PPI daily in 1-2 days Diflucan 100mg daily for a total of 3 weeks Fentanyl patch at 75mcg will attempt to use Lortab before the BONDERIZER OPERATOR pump and monitor pain management, oncology input appreciated once off of the IVs, we can d/c patient home off of all antibiotics 11/30 will switch IV meds to PO today Diflucan 100mg daily for a total of 3 weeks PPI BID to total one week, and then change to Protonix daily slippery foods tapering BONDERIZER OPERATOR pump, Fentanyl patch as per pain management 11/29 intermittently has difficulty with food back on solids should be on slippery foods continue Diflucan for 21 days total PPI BID x one week and then PPI daily appreciate pain management input - Fentanyl patch increased, plan to taper off BONDERIZER OPERATOR and IV Dilaudid 11/28/17 for now, no PEG tube currently on full liquid diet continue Diflucan currently on a Dilaudid BONDERIZER OPERATOR and receiving Dilaudid PRN for breakthrough; pain management consulted for outpatient pain medications; fentanyl patch on 11/27/17 he is a clear aspiration risk; occasional coughing episodes while eating tolerated clears - and he is requested more of a full liquid diet, which I will order GI consult appreciated - discussed PEG tube options - patient is thinking about it, though leaning against this Diflucan in case candidal esophagitis is a possibility continue pain medications including Fentanyl patch and Dilaudid PRN viscous lidocaine PRN Electrolyte Imbalances low phos, Mg, and calcium given Mg, which is now wnl will replace phos and Mg recheck in AM Pancytopenia/Chemo-Induced Neutropenia 11/30 Hgb, WBC, platelets have stabilized no transfusion is necessary at this time appreciate hem/onc input 1/4 platelets stable Hgb at 8.5 WBC >1 patient is doing well, appreciate hem/onc input 11/28/17 s/p 4 units of pRBCs total; Hgb at 8.5 platelets are down to 29, will hold off on transfusion unless epistaxis recurs WBC improved appreciate hem/onc input 11/27/17 patient presents with pancytopenia, including thrombocytopenia, neutropenia and anemia patient has received 3 units of platelets and 2 units of pRBCs so far he had some epistaxis yesterday, likely secondary to low platelets, which have come up today (11/27/17) Filgrastim x3 days, now completed Eliquis d/c'd Hgb is now low at 6.9; platelets improving will transfuse another 2 units of pRBCs - recheck H/H four hours post- transfusion Chronic Atrial Fibrillation patient with chronic A. fib, rates are currently elevated ranging from 100s-130s not tolerated PO b-christian well; continue IV Lopressor PRN will transfuse two more units of pRBCs and monitor HRs (total 4 units pRBCs) no anticoagulation due to pancytopenia/anemia and epistaxis Chronic Diastolic CHF stopped IVFs restarted Torsemide 20mg q12 (home dose) SIRS criteria 11/29 blood culture positive x1 - gram positive cocci Vancomycin restarted 11/28/17 blood cultures negative x2 will d/c antibiotics today 11/27/17 meets SIRS secondary to tachycardia and neutropenia likely not infectious, though aspiration pneumonia is a risk for now, will continue Cefepime and Vanco preliminary blood cultures negative, will await final cultures Acute Kidney Injury - resolved creatinine 1.45 on admission given IVFs and creat improved will advance diet and monitor creatinine DVT ppx SCDs DNR palliative care consult pending Continued [facility] stay due to: multiple IV medications needed Discharge planning: uncertain
[2017-12-02 19:54] VITALS: BP 99/67; PULSE 101; TEMP 36.5; O2SAT 95
[2017-12-02] MEDS: PRAVASTATIN SOD 40 MG TAB PO SCH (21:23)
[2017-12-02 23:40] VITALS: BP 103/86; PULSE 109; TEMP 36.5; O2SAT 95
[2017-12-03 03:40] VITALS: BP 106/66; PULSE 114; TEMP 36.7; O2SAT 93
[2017-12-03 05:23] LABS: CALCIUM 8.8 mg/dl (8.5-10.1); CREATININE 1.18 mg/dl (0.60-1.40); POTASSIUM 4.3 mmol/L (3.5-5.1)
[2017-12-03 05:29] LABS: PHOSPHORUS 3.9 mg/dl (2.5-4.9)
[2017-12-03 05:32] LABS: HEMATOCRIT 22.9 % (42-52); HEMOGLOBIN 7.7 g/dL (14.0-18.0); MEAN CELL VOLUME 85.8 fL (80-100); MEAN CORPUSCULAR HEMOGLOBIN 28.8 pg (25-34); MEAN CORPUSCULAR HGB CONC 33.6 g/dl (32-36); MEAN PLATELET VOLUME 11.1 fL (7.4-10.4); PLATELET COUNT 41 K/uL (130-400); RED CELL DISTRIBUTION WIDTH SD 46.7 fL (36.4-46.3); WHITE BLOOD COUNT 1.32 K/uL (4.8-10.8)
[2017-12-03] MEDS: ONDANSETRON INJ 2 MG/ML 2 ML VIAL IV SCH ×4 (05:43→22:14)
[2017-12-03] MEDS: ACETAMINOPHEN/HYDROCODONE ELIX 15 ML/CUP UDP PO PRN (05:44)
[2017-12-03 05:59] LABS: BASO % 0.8 %; BASO ABS # 0.01 K/uL (0-0.2); EOS % 0.8 %; EOS ABS # 0.01 K/uL (0-0.5); IG# 0.01 K/uL (0.00-0.02); LYMPH ABS # 0.29 K/uL (1.2-3.4); MONO % 19.7 %; MONO ABS # 0.26 K/uL (0.11-0.59); NEUT % 55.9 %; NEUT ABS # 0.74 K/uL (1.4-6.5)
[2017-12-03] MEDS ORDERED: MAGNESIUM SULFATE 1GM / D5W 1 GM in PREMIXED IN D5W 100 ML IV STA (07:25)
[2017-12-03 07:40] VITALS: BP 101/67; PULSE 104; TEMP 36.8; O2SAT 91
[2017-12-03] MEDS: CHECK FENTANYL PATCH PLACEMENT SCH ×3 (07:51→15:11)
[2017-12-03] MEDS: CHOLECALCIFEROL 1000 INTER.UNIT TAB PO SCH (07:53)
[2017-12-03] MEDS: FERROUS SULFATE 325 MG TAB PO SCH (07:53)
[2017-12-03] MEDS: MAGNESIUM OXIDE 400 MG TAB PO SCH ×2 (07:54→21:21)
[2017-12-03] MEDS: METOPROLOL SUCC 25MG EXT REL TAB PO SCH (07:54)
[2017-12-03] MEDS: PANTOprazole SOD 40 MG TAB PO SCH ×2 (07:54→21:21)
[2017-12-03] MEDS: POLYETHYLENE (MIRALAX) 17 GM PACK PO SCH ×2 (07:54→21:21)
[2017-12-03] MEDS: POT PHOSPHATE MONOBASIC W/ SOD TAB PO SCH ×4 (07:54→21:21)
[2017-12-03] MEDS: FLUCONAZOLE 100 MG TAB PO SCH (07:54)
[2017-12-03] MEDS: TORSEMIDE 20 MG TAB PO SCH ×2 (07:54→21:21)
[2017-12-03] MEDS: THIAMINE HCL 100 MG TAB PO SCH (07:54)
[2017-12-03] MEDS ORDERED: OXYCODONE HCL IR 5 MG TAB (IMMEDIATE RELEASE) PO PRN (08:00)
[2017-12-03] MEDS ORDERED: FENTANYL 25 MCG/HR TDSY TD SCH (08:45)
--- NOTE | 2017-12-03 09:00 | Progress Note ---
Subjective Date of Service: Dec 03, 2017. Subjective Pt evaluation today including: conversation w/ patient, physical exam, lab review, review of studies, review of inpatient medication list Saw/examined the patient in room 208 He is having a tougher time swallowing things today, painful swallowing +excessive secretions, spitting up mucous mostly Problem List Medical Problems: (1) Abdominal pain Status: Chronic (2) Anticoagulants,Lt,Current Use Status: Chronic (3) Atrial fibrillation Status: Chronic (4) Bowel obstruction Status: Acute (5) Congestive Heart Failure Nos Status: Chronic (6) Coronary Atherosclerosis Of [place] Coronary Vessel Status: Chronic (7) Dehydration Status: Acute (8) Diabetes mellitus type 2 Status: Chronic (9) Hyperlipidemia Status: Chronic (10) Hypertensive disorder, systemic arterial Status: Chronic (11) Hypothyroidism Status: Chronic (12) Obstructive Sleep Apnea (Adult) (Pediatric) Status: Chronic (13) Renal insufficiency Status: Chronic (14) Right lumbar radiculitis Status: Acute (15) SOB (shortness of breath) Status: Acute (16) Substernal chest pain Status: Acute (17) Upper abdominal pain Status: Acute (18) Vomiting Status: Acute Review of Systems Constitutional: No fever, No chills ENT: + trouble swallowing Respiratory: + cough, + sputum, No wheezing, No shortness of breath, No dyspnea on exertion, No dyspnea at rest, No hemoptysis Cardiac: + chest pain, No edema, No palpitations Abdomen: + pain, + nausea, No vomiting, No diarrhea, No constipation, No GI bleeding Medications Current Inpatient Medications Medications (Trade) Dose Ordered Sig/Elizabeth Route Start Time Stop Time Status Last Admin Dose Admin Cyclobenzaprine HCl (Flexeril Tab) 10 mg HS PRN PO 11/24/17 17:15 12/24/17 17:14 Eszopiclone (Lunesta Tab) 1 mg HS PRN PO 11/24/17 17:15 12/24/17 17:14 Nitroglycerin (Nitrostat Tab) 0.4 mg UD PRN SL 11/24/17 17:15 12/24/17 17:14 Cholecalciferol (Vitamin D Tab) 2,000 inter.unit DAILY PO 11/25/17 08:00 12/25/17 08:59 12/03/17 07:53 2,000 INTER.UNIT Ferrous Sulfate (Feosol Tab) 325 mg DAILY PO 11/25/17 08:00 12/25/17 08:59 12/03/17 07:53 325 MG Hydromorphone HCl (Dilaudid Inj) 0.5 mg Q3H PRN IV 11/24/17 21:15 12/08/17 21:14 11/26/17 12:01 0.5 MG Ondansetron HCl (Zofran Inj) 4 mg Q6H IV 11/25/17 17:00 12/24/17 16:59 12/03/17 05:43 4 MG Lidocaine HCl (Viscous Lidocaine 2% Soln) 20 ml Q6H PRN MT 11/25/17 16:30 12/25/17 16:29 11/26/17 13:39 20 ML Polyethylene (Miralax Powder Packet) 17 gm BID PO 11/25/17 20:00 12/25/17 19:59 12/03/17 07:54 17 GM Naloxone HCl (Narcan Inj) 0.1 mg Q5M PRN IV 11/26/17 12:45 12/26/17 12:44 Hydromorphone HCl (Dilaudid Embossing Clerk) 25 mg PRN PRN IV 11/26/17 12:45 12/10/17 12:44 12/02/17 12:33 25 MG Sodium Chloride 1,000 ml @ 15 mls/hr Q24H IV 11/26/17 12:31 12/26/17 12:30 12/02/17 16:42 15 MLS/HR Fentanyl (Duragesic Patch) 75 mcg Q72H TD 11/29/17 09:30 12/13/17 09:29 12/02/17 08:18 75 MCG Miscellaneous (Fentanyl Patch Remove & Waste) 1 ea Q3D N/A 12/02/17 09:29 01/01/18 09:28 12/02/17 08:18 1 EA Miscellaneous Information (Check Fentanyl Patch Placement) 1 ea QS N/A 11/29/17 16:00 12/29/17 15:59 12/03/17 07:51 1 EA Torsemide (Demadex Tab) 20 mg BID PO 11/29/17 09:30 12/29/17 09:29 12/03/17 07:54 20 MG Pravastatin Sodium (Pravachol Tab) 80 mg HS PO 11/30/17 21:00 12/30/17 20:59 12/02/17 21:23 80 MG Fluconazole (Diflucan Tab) 100 mg QAM PO 12/01/17 09:00 12/11/17 08:59 12/03/17 07:54 100 MG Pantoprazole Sodium (Protonix Tab) 40 mg BID PO 11/30/17 21:00 12/30/17 20:59 12/03/17 07:54 40 MG Thiamine HCl (Vitamin B-1 Tab) 100 mg QAM PO 12/01/17 09:00 12/31/17 08:59 12/03/17 07:54 100 MG Metoprolol Succinate (Toprol Xl Tab) 25 mg QAM PO 12/01/17 09:00 12/31/17 08:59 12/03/17 07:54 25 MG Heparin Sodium (Porcine) (Heparin 10 Unit/ ml 5 ml Flush) 5 ml PRN PRN FLUSH 11/30/17 16:30 12/30/17 16:29 Magnesium Oxide (Mag-Ox Tab) 400 mg BID PO 12/01/17 21:00 12/31/17 20:59 12/03/17 07:54 400 MG Potassium/ Phosphorus/Sodium (Phospha 250 Neutral 155-852-130 Mg) 1 tab QID PO 12/02/17 13:00 01/01/18 12:59 12/03/17 07:54 1 TAB Potassium Chloride (Klor-Con Tab) 60 meq BID PO 12/03/17 09:00 01/02/18 08:59 Miscellaneous (Fentanyl Patch Remove & Waste) 1 ea Q3D N/A 12/05/17 09:29 12/05/17 09:30 Miscellaneous Information (Check Fentanyl Patch Placement) 1 ea QS N/A 12/03/17 16:00 12/05/17 08:01 Oxycodone HCl (Roxicodone Soln) 5 mg Q4 PRN PO 12/03/17 08:45 12/17/17 08:44 UNV Scopolamine (Transderm-Scop Patch) 1.5 mg Q72H TD 12/03/17 08:45 01/02/18 08:44 UNV Miscellaneous (Remove Transderm-Scop Patch) 1 ea Q72H N/A 12/06/17 08:45 01/05/18 08:44 UNV Miscellaneous Information (Check Scopolamine Patch Placement) 1 ea QS N/A 12/03/17 16:00 01/02/18 15:59 UNV Objective Vital Signs Date Time Temp Pulse Resp B/P (MAP) Pulse Ox O2 Delivery O2 Flow Rate FiO2 12/03/17 07:40 36.8 104 20 101/67 (78) 91 Room Air 12/03/17 04:00 Room Air Non-Rebreather 12/03/17 03:40 36.7 114 17 106/66 (79) 93 Room Air 12/02/17 23:59 Room Air Non-Rebreather 12/02/17 23:40 36.5 109 19 103/86 (92) 95 Room Air 12/02/17 20:00 Room Air Non-Rebreather 12/02/17 19:54 36.5 101 18 99/67 (78) 95 Room Air 12/02/17 16:00 Room Air 12/02/17 15:46 36.6 95 18 104/66 (79) 97 Room Air 12/02/17 12:33 36.7 103 20 93/66 (75) 97 Room Air 12/02/17 12:00 Room Air Physical Exam General Appearance: no apparent distress Respiratory/Chest: no respiratory distress, no accessory muscle use, + decreased breath sounds Cardiovascular: regular rate, rhythm, no edema, no murmur Abdomen: normal bowel sounds, non tender, soft Extremities: normal inspection, no pedal edema Laboratory Results Last 24 Hours Test 12/03/17 04:43 White Blood Count 1.32 K/uL Red Blood Count 2.67 M/uL Hemoglobin 7.7 g/dL Hematocrit 22.9 % Mean Corpuscular Volume 85.8 fL Mean Corpuscular Hemoglobin 28.8 pg Mean Corpuscular Hemoglobin Concent 33.6 g/dl Platelet Count 41 K/uL Mean Platelet Volume 11.1 fL Neutrophils (%) (Auto) 55.9 % Lymphocytes (%) (Auto) 22.0 % Monocytes (%) (Auto) 19.7 % Eosinophils (%) (Auto) 0.8 % Basophils (%) (Auto) 0.8 % Neutrophils # (Auto) 0.74 K/uL Lymphocytes # (Auto) 0.29 K/uL Monocytes # (Auto) 0.26 K/uL Eosinophils # (Auto) 0.01 K/uL Basophils # (Auto) 0.01 K/uL RDW Standard Deviation 46.7 fL RDW Coefficient of Variation 15.0 % Immature Granulocyte % (Auto) 0.8 % Immature Granulocyte # (Auto) 0.01 K/uL Toxic Granulation 2+ Sodium Level 133 mmol/L Potassium Level 4.3 mmol/L Chloride Level 95 mmol/L Carbon Dioxide Level 33 mmol/L Anion Gap 5.0 mmol/L Blood Urea Nitrogen 9 mg/dl Creatinine 1.18 mg/dl Est Creatinine Clear Calc Drug Dose 82.1 ml/min Estimated GFR () 79.5 Estimated GFR (Non- 68.6 BUN/Creatinine Ratio 7.6 Random Glucose 91 mg/dl Calcium Level 8.8 mg/dl Phosphorus Level 3.9 mg/dl Magnesium Level 1.7 mg/dl Assessment and Plan This is a 57 year old male with a PMH of small cell lung carcinoma with ongoing chemo and radiation tx., chronic atrial fibrillation on Eliquis, diastolic CHF, CKD stage 3 - presents with difficulty and painful swallowing likely secondary to radiation induced esophagitis Radiation-Induced Esophagitis 12/03 worsening clinically PPI BID, Diflucan 100mg Fentanyl patch increased to 100mcg Roxicodone SL Scopolamine patch added 12/02 PPI BID for another day and will d/c back on PPI daily Diflucan 100mg daily for a total of 3 weeks Fentanyl patch at 75mcg pain management, oncology input appreciated once off of SONG LYRICIST - he can be discharged 12/01 continue PPI BID for now, then back to PPI daily in 1-2 days Diflucan 100mg daily for a total of 3 weeks Fentanyl patch at 75mcg will attempt to use Lortab before the SONG LYRICIST pump and monitor pain management, oncology input appreciated once off of the IVs, we can d/c patient home off of all antibiotics 11/30 will switch IV meds to PO today Diflucan 100mg daily for a total of 3 weeks PPI BID to total one week, and then change to Protonix daily slippery foods tapering SONG LYRICIST pump, Fentanyl patch as per pain management 11/29 intermittently has difficulty with food back on solids should be on slippery foods continue Diflucan for 21 days total PPI BID x one week and then PPI daily appreciate pain management input - Fentanyl patch increased, plan to taper off SONG LYRICIST and IV Dilaudid 11/28/17 for now, no PEG tube currently on full liquid diet continue Diflucan currently on a Dilaudid SONG LYRICIST and receiving Dilaudid PRN for breakthrough; pain management consulted for outpatient pain medications; fentanyl patch on 11/27/17 he is a clear aspiration risk; occasional coughing episodes while eating tolerated clears - and he is requested more of a full liquid diet, which I will order GI consult appreciated - discussed PEG tube options - patient is thinking about it, though leaning against this Diflucan in case candidal esophagitis is a possibility continue pain medications including Fentanyl patch and Dilaudid PRN viscous lidocaine PRN Electrolyte Imbalances low phos, Mg, and calcium given Mg, which is now wnl will replace phos and Mg recheck in AM Pancytopenia/Chemo-Induced Neutropenia 12/03 Hgb lower today to 7.7 monitor CBC daily 11/30 Hgb, WBC, platelets have stabilized no transfusion is necessary at this time appreciate hem/onc input 11/29 platelets stable Hgb at 8.5 WBC >1 patient is doing well, appreciate hem/onc input 11/28/17 s/p 4 units of pRBCs total; Hgb at 8.5 platelets are down to 29, will hold off on transfusion unless epistaxis recurs WBC improved appreciate hem/onc input 11/27/17 patient presents with pancytopenia, including thrombocytopenia, neutropenia and anemia patient has received 3 units of platelets and 2 units of pRBCs so far he had some epistaxis yesterday, likely secondary to low platelets, which have come up today (11/27/17) Filgrastim x3 days, now completed Eliquis d/c'd Hgb is now low at 6.9; platelets improving will transfuse another 2 units of pRBCs - recheck H/H four hours post- transfusion Chronic Atrial Fibrillation patient with chronic A. fib, rates are currently elevated ranging from 100s-130s not tolerated PO b-christian well; continue IV Lopressor PRN will transfuse two more units of pRBCs and monitor HRs (total 4 units pRBCs) no anticoagulation due to pancytopenia/anemia and epistaxis Chronic Diastolic CHF stopped IVFs restarted Torsemide 20mg q12 (home dose) SIRS criteria 11/29 blood culture positive x1 - gram positive cocci Vancomycin restarted 11/28/17 blood cultures negative x2 will d/c antibiotics today 11/27/17 meets SIRS secondary to tachycardia and neutropenia likely not infectious, though aspiration pneumonia is a risk for now, will continue Cefepime and Vanco preliminary blood cultures negative, will await final cultures Acute Kidney Injury - resolved creatinine 1.45 on admission given IVFs and creat improved will advance diet and monitor creatinine DVT ppx SCDs DNR palliative care consult pending Continued [facility] stay due to: multiple IV medications needed Discharge planning: uncertain
[2017-12-03] MEDS: SCOPOLAMINE 1.5 MG TDSY TD SCH (09:31)
[2017-12-03] MEDS: POTASSIUM CHLORIDE 20 MEQ TABCR PO SCH ×2 (09:31→21:21)
--- NOTE | 2017-12-03 10:10 | Hematology/Oncology Prog Note ---
Hematology/Onc Progress Note Date of Service Dec 03, 2017. Diagnoses Small Cell lung carcinoma Esophagitis Pancytopenia secondary to chemotherapy and radiation Medications Medications Administered Medications (Trade) Dose Ordered Sig/Elizabeth Route Start Time Stop Time Status Last Admin Dose Admin Sodium Chloride 2,000 ml @ 999 mls/hr Q2H1M STAT IV 11/24/17 14:02 11/24/17 16:07 DC 11/24/17 14:21 999 MLS/HR Ondansetron HCl (Zofran Inj) 4 mg NOW STAT IV 11/24/17 14:02 11/24/17 14:04 DC 11/24/17 14:21 4 MG Morphine Sulfate (MoRPHine SULFATE INJ) 6 mg NOW STAT IV 11/24/17 14:02 11/24/17 14:04 DC 11/24/17 14:22 6 MG Ondansetron HCl (Zofran Inj) 4 mg Q6H PRN IV 11/24/17 17:00 11/25/17 16:37 DC 11/25/17 07:46 4 MG Levothyroxine Sodium (Synthroid Tab) 112 mcg DAILYBB PO 11/25/17 06:30 11/25/17 16:37 DC 11/25/17 07:57 112 MCG Oxycodone HCl (Roxicodone Immediate Rel Tab) 5 mg Q4H PRN PO 11/24/17 17:15 11/26/17 12:31 DC 11/26/17 05:06 5 MG Apixaban (Eliquis Tab) 5 mg BID PO 11/24/17 20:00 11/26/17 12:31 DC 11/24/17 19:49 5 MG Cholecalciferol (Vitamin D Tab) 2,000 inter.unit DAILY PO 11/25/17 08:00 12/25/17 08:59 12/03/17 07:53 2,000 INTER.UNIT Ferrous Sulfate (Feosol Tab) 325 mg DAILY PO 11/25/17 08:00 12/25/17 08:59 12/03/17 07:53 325 MG Lactobacillus Acidophilus (Lactinex Granules Pack) 1 gm BID PEG 11/24/17 20:00 11/24/17 20:30 DC 11/24/17 19:49 1 GM Magnesium Oxide (Mag-Ox Tab) 400 mg Q2D@0900 PO 11/25/17 09:00 12/01/17 09:45 DC 12/01/17 08:28 400 MG Filgrastim (Neupogen Sq) 480 mcg DAILY SC 11/25/17 08:00 11/26/17 12:00 DC 11/26/17 10:19 480 MCG Filgrastim (Neupogen Sq) 480 mcg 1830 ONCE SC 11/24/17 18:30 11/24/17 18:31 DC 11/24/17 20:50 480 MCG Sodium Chloride 1,000 ml @ 100 mls/hr Q10H IV 11/24/17 17:15 11/27/17 10:20 DC 11/27/17 05:58 100 MLS/HR Lactobacillus Acidophilus (Floranex Tab) 4 tab BID PO 11/25/17 08:00 11/25/17 16:43 DC 11/25/17 07:57 4 TAB Hydromorphone HCl (Dilaudid Inj) 0.5 mg Q3H PRN IV 11/24/17 21:15 12/08/17 21:14 11/26/17 12:01 0.5 MG Hydromorphone HCl (Dilaudid Inj) 0.5 mg 2112 ONCE IV 11/24/17 21:12 11/24/17 21:18 DC 11/24/17 21:28 0.5 MG Magnesium Sulfate 4 gm/Sodium Phosphate 15 mmol/ Sodium Chloride 513 ml @ 128 mls/hr 0900 ONCE IV 11/25/17 09:00 11/25/17 13:00 DC 11/25/17 09:34 128 MLS/HR Bisacodyl (Dulcolax Supp) 10 mg STK-MED ONCE .ROUTE 11/25/17 10:21 11/25/17 10:22 DC 11/25/17 10:25 10 MG Ondansetron HCl (Zofran Inj) 4 mg Q6H IV 11/25/17 17:00 12/24/17 16:59 12/03/17 09:36 4 MG Thiamine HCl 100 mg/Syringe 10 ml @ 2 mls/min BID IV 11/25/17 20:00 11/30/17 09:32 DC 11/30/17 09:04 2 MLS/MIN Acetaminophen/ Hydrocodone Bitart (Lortab Elixir) 15 ml TIDM PRN PO 11/25/17 16:30 12/03/17 07:58 DC 12/03/17 05:44 15 ML Lidocaine HCl (Viscous Lidocaine 2% Soln) 20 ml Q6H PRN MT 11/25/17 16:30 12/25/17 16:29 11/26/17 13:39 20 ML Sodium Chloride 1,000 ml @ 999 mls/hr Q1H1M IV 11/25/17 16:30 11/25/17 17:30 DC 11/25/17 16:52 999 MLS/HR Polyethylene (Miralax Powder Packet) 17 gm BID PO 11/25/17 20:00 12/25/17 19:59 12/03/17 07:54 17 GM Cefepime HCl 2000 mg/Syringe 20 ml @ 5 mls/min Q8H IV 11/25/17 17:30 11/28/17 08:40 DC 11/28/17 02:00 5 MLS/MIN Vancomycin HCl 2500 mg/Sodium Chloride 550 ml @ 200 mls/hr TODAY@1745 ONCE IV 11/25/17 17:45 11/25/17 20:29 DC 11/25/17 19:13 200 MLS/HR Metoprolol Tartrate (Lopressor Iv) 5 mg Q6 IV. 11/25/17 18:30 11/30/17 12:26 DC 11/30/17 06:18 5 MG Vancomycin HCl 1500 mg/Sodium Chloride 530 ml @ 200 mls/hr Q12H IV 11/26/17 06:00 11/27/17 10:51 DC 11/27/17 05:57 200 MLS/HR Levothyroxine Sodium 25 mcg/ Syringe 1.25 ml @ 2 mls/min DAILY@09 IV 11/26/17 09:00 11/30/17 09:25 DC 11/29/17 09:21 2 MLS/MIN Sodium Chloride 1,000 ml @ 250 mls/hr Q4H IV 11/25/17 21:00 11/26/17 00:59 DC 11/25/17 21:07 250 MLS/HR Calcium Gluconate 2000 mg/Sodium Chloride 70 ml @ 70 mls/hr NOW ONCE IV 11/26/17 09:00 11/26/17 09:59 DC 11/26/17 09:11 70 MLS/HR Sodium Phosphate 30 mmol/Sodium Chloride 510 ml @ 88 mls/hr NOW ONCE IV 11/26/17 09:00 11/26/17 14:47 DC 11/26/17 10:16 88 MLS/HR Fentanyl (Duragesic Patch) 25 mcg Q3D@1000 TD 11/26/17 10:00 11/28/17 12:03 DC 11/26/17 10:22 25 MCG Miscellaneous Information (Check Fentanyl Patch Placement) 1 ea QS N/A 11/26/17 16:00 11/28/17 12:03 DC 11/28/17 07:18 1 EA Diphenhydramine HCl (Benadryl Inj) 25 mg ONE ONCE IV 11/26/17 09:45 11/26/17 09:46 DC 11/26/17 13:37 25 MG Acetaminophen 650 mg/Empty Bag 65 ml @ 260 mls/hr ONE ONCE IV 11/26/17 10:00 11/26/17 10:14 DC 11/26/17 13:36 260 MLS/HR Hydromorphone HCl (Dilaudid Donor Recruitment Manager) 25 mg PRN PRN IV 11/26/17 12:45 12/10/17 12:44 12/02/17 12:33 25 MG Sodium Chloride 1,000 ml @ 15 mls/hr Q24H IV 11/26/17 12:31 12/26/17 12:30 12/02/17 16:42 15 MLS/HR Fluconazole/ Sodium Chloride 200 mg/Prmx 100 ml @ 100 mls/hr TODAY@1600,1700 IV 11/26/17 16:00 11/26/17 17:59 DC 11/26/17 16:42 100 MLS/HR Fluconazole/ Sodium Chloride 200 mg/Prmx 100 ml @ 100 mls/hr DAILY@1600 IV 11/27/17 16:00 11/30/17 09:32 DC 11/29/17 16:14 100 MLS/HR Pantoprazole Sodium 40 mg/ Syringe 10 ml @ 5 mls/min DAILY@09,21 IV 11/27/17 21:00 11/30/17 09:32 DC 11/30/17 09:04 5 MLS/MIN Potassium Phosphate 15 mmol/ Sodium Chloride 255 ml @ 88 mls/hr TODAY@1030 ONCE IV 11/27/17 10:30 11/27/17 13:23 DC 11/27/17 11:50 88 MLS/HR Vancomycin HCl 1500 mg/Sodium Chloride 530 ml @ 200 mls/hr Q10H IV 11/27/17 16:00 11/28/17 08:40 DC 11/28/17 02:11 200 MLS/HR Sodium Chloride ([place] Nasal [place]) 225 sprays STK-MED ONCE .ROUTE 11/27/17 18:11 11/27/17 18:12 DC 11/28/17 21:39 225 SPRAYS Sodium Phosphate 15 mmol/Sodium Chloride 255 ml @ 88 mls/hr TODAY@0745 ONCE IV 11/28/17 07:45 11/28/17 10:38 DC 11/28/17 08:41 88 MLS/HR Fentanyl (Duragesic Patch) 50 mcg Q3D@1230 TD 11/28/17 12:30 11/29/17 08:28 DC 11/28/17 12:17 50 MCG Miscellaneous (Fentanyl Patch Remove & Waste) 1 ea Q3D@1229 N/A 11/28/17 12:29 11/29/17 09:12 DC 11/28/17 12:20 1 EA Miscellaneous Information (Check Fentanyl Patch Placement) 1 ea QS N/A 11/28/17 16:00 11/29/17 08:28 DC 11/29/17 00:34 1 EA Vancomycin HCl 2500 mg/Sodium Chloride 550 ml @ 200 mls/hr NOW STAT IV 11/29/17 02:00 11/29/17 04:44 DC 11/29/17 02:37 200 MLS/HR Magnesium Sulfate 1 gm/Prmx 100 ml @ 100 mls/hr NOW STAT IV 11/29/17 07:47 11/29/17 08:46 DC 11/29/17 09:21 100 MLS/HR Sodium Phosphate 21 mmol/Sodium Chloride 507 ml @ 144.857 mls/hr NOW STAT IV 11/29/17 07:49 11/29/17 11:18 DC 11/29/17 09:21 144.857 MLS/HR Fentanyl (Duragesic Patch) 75 mcg Q72H TD 11/29/17 09:30 12/05/17 07:59 12/02/17 08:18 75 MCG Miscellaneous (Fentanyl Patch Remove & Waste) 1 ea Q3D N/A 12/02/17 09:29 12/05/17 09:30 12/02/17 08:18 1 EA Miscellaneous Information (Check Fentanyl Patch Placement) 1 ea QS N/A 11/29/17 16:00 12/05/17 09:29 12/03/17 07:51 1 EA Torsemide (Demadex Tab) 20 mg BID PO 11/29/17 09:30 12/29/17 09:29 12/03/17 07:54 20 MG Miscellaneous (Fentanyl Patch Remove & Waste) 1 ea 0940 ONCE N/A 11/29/17 09:40 11/29/17 09:41 DC 11/29/17 09:40 1 EA Vancomycin HCl 1500 mg/Sodium Chloride 530 ml @ 200 mls/hr Q10H IV 11/29/17 12:00 11/30/17 12:27 DC 11/30/17 08:45 200 MLS/HR Potassium Chloride 10 meq/ Prmx 100 ml @ 100 mls/hr Q1H IV 11/30/17 08:30 11/30/17 10:29 DC 11/30/17 16:19 100 MLS/HR Magnesium Sulfate 1 gm/Prmx 100 ml @ 100 mls/hr Q1H IV 11/30/17 08:30 11/30/17 10:29 DC 11/30/17 16:19 100 MLS/HR Potassium Chloride (Klor-Con Tab) 60 meq BID PO 11/30/17 09:00 12/01/17 15:30 DC 12/01/17 08:27 60 MEQ Potassium Phosphate 24 mmol/ Sodium Chloride 508 ml @ 88 mls/hr TODAY@0845 ONCE IV 11/30/17 08:45 11/30/17 14:31 DC 11/30/17 09:04 88 MLS/HR Pravastatin Sodium (Pravachol Tab) 80 mg HS PO 11/30/17 21:00 12/30/17 20:59 12/02/17 21:23 80 MG Fluconazole (Diflucan Tab) 100 mg QAM PO 12/01/17 09:00 12/11/17 08:59 12/03/17 07:54 100 MG Pantoprazole Sodium (Protonix Tab) 40 mg BID PO 11/30/17 21:00 12/30/17 20:59 12/03/17 07:54 40 MG Thiamine HCl (Vitamin B-1 Tab) 100 mg QAM PO 12/01/17 09:00 12/31/17 08:59 12/03/17 07:54 100 MG Metoprolol Succinate (Toprol Xl Tab) 25 mg QAM PO 12/01/17 09:00 12/31/17 08:59 12/03/17 07:54 25 MG Magnesium Sulfate 1 gm/Prmx 100 ml @ 100 mls/hr Q1H IV 12/01/17 10:00 12/01/17 11:59 DC 12/01/17 12:48 100 MLS/HR Magnesium Oxide (Mag-Ox Tab) 400 mg BID PO 12/01/17 21:00 12/31/17 20:59 12/03/17 07:54 400 MG Potassium Phosphate 21 mmol/ Sodium Chloride 507 ml @ 144 mls/hr 1200 ONCE IV 12/01/17 12:00 12/01/17 15:31 DC 12/01/17 10:41 144 MLS/HR Potassium Chloride (Klor-Con Pwd) 60 meq BID PO 12/01/17 21:00 12/03/17 08:14 DC 12/02/17 21:22 60 MEQ Potassium/ Phosphorus/Sodium (Phospha 250 Neutral 155-852-130 Mg) 1 tab QID PO 12/02/17 13:00 01/01/18 12:59 12/03/17 07:54 1 TAB Magnesium Sulfate 1 gm/Prmx 100 ml @ 100 mls/hr Q1H IV 12/02/17 10:00 12/02/17 13:59 DC 12/02/17 12:09 100 MLS/HR Magnesium Sulfate 1 gm/Prmx 100 ml @ 100 mls/hr NOW STAT IV 12/03/17 07:25 12/03/17 08:24 DC 12/03/17 07:51 100 MLS/HR Potassium Chloride (Klor-Con Tab) 60 meq BID PO 12/03/17 09:00 01/02/18 08:59 12/03/17 09:31 60 MEQ Fentanyl (Duragesic Patch) 25 mcg Q72H TD 12/03/17 08:45 12/05/17 09:29 12/03/17 09:30 25 MCG Scopolamine (Transderm-Scop Patch) 1.5 mg Q72H TD 12/03/17 08:45 01/02/18 08:44 12/03/17 09:31 1.5 MG Subjective Complains more of painful swallowing. States is really not able to eat very much without having pain. Had some nausea with this. Ther gas been no fever is no shortness of breath no diarrhea. Review of Systems: Constitutional: Negative for night sweats, or fever Eyes: Negative for event change of vision ENT: Negative for epistaxis, nasal discharge, sore throat, or deafness Cardiovascular: Negative for chest pain, palpitations, dizziness, diaphoresis Respiratory: Negative for new shortness of breath,hemoptysis, or purulent cough Gastrointestinal: Negative for diarrhea, hematemesis, melena, positive for worsening dysphagia with some nausea. Integumentary (skin): Negative for rash or jaundice discoloration Neurological: Negative for weakness, seizure activity, headache, or dizziness Lymphatic/Hematologic: Negative for petechiae, bleeding or new adenopathy Musculoskeletal: Negative for new joint or back pain Allergic/Immunologic: Negative for unusual rash or pruritis. Vital Signs Vital Signs Past 12 Hours Date Time Temp Pulse Resp B/P (MAP) Pulse Ox O2 Delivery O2 Flow Rate FiO2 12/03/17 08:00 Room Air 12/03/17 07:40 36.8 104 20 101/67 (78) 91 Room Air 12/03/17 04:00 Room Air Non-Rebreather 12/03/17 03:40 36.7 114 17 106/66 (79) 93 Room Air 12/02/17 23:59 Room Air Non-Rebreather 12/02/17 23:40 36.5 109 19 103/86 (92) 95 Room Air Physical Exam Constitutional: vitals are stable. Eyes: Eyes are DANG EOMI without conjuctival erythema or icterus. ENT: External examination was negative for masses. Neck: Negative for masses or palpable thyromegaly Respiratory: Lung sounds were generally clear bilaterally but decreased bilaterally Cardiovascular: Heart was RRR without significant murmur, gallops or rubs Gastrointestinal: No palpable hepatic or splenomegaly. The abdomen was soft with normal bowel sounds. Lymphatic system: there was no palpable peripheral lymphadenopathy Musculoskeletal System: The musculoskeletal system seemed concordant with age. Skin: The skin was negative for jaundice. Neurologic exam: The exam was negative for any focal findings. Deep tendon reflexes were equal and symmetrical. Psychiatric exam: Was essentially negative with normal mood and effect. Extremities: without worsening edema. Changes consistent with chronic stasis distally. Laboratory Last 24 Hours Test 12/03/17 04:43 White Blood Count 1.32 K/uL Red Blood Count 2.67 M/uL Hemoglobin 7.7 g/dL Hematocrit 22.9 % Mean Corpuscular Volume 85.8 fL Mean Corpuscular Hemoglobin 28.8 pg Mean Corpuscular Hemoglobin Concent 33.6 g/dl Platelet Count 41 K/uL Mean Platelet Volume 11.1 fL Neutrophils (%) (Auto) 55.9 % Lymphocytes (%) (Auto) 22.0 % Monocytes (%) (Auto) 19.7 % Eosinophils (%) (Auto) 0.8 % Basophils (%) (Auto) 0.8 % Neutrophils # (Auto) 0.74 K/uL Lymphocytes # (Auto) 0.29 K/uL Monocytes # (Auto) 0.26 K/uL Eosinophils # (Auto) 0.01 K/uL Basophils # (Auto) 0.01 K/uL RDW Standard Deviation 46.7 fL RDW Coefficient of Variation 15.0 % Immature Granulocyte % (Auto) 0.8 % Immature Granulocyte # (Auto) 0.01 K/uL Toxic Granulation 2+ Sodium Level 133 mmol/L Potassium Level 4.3 mmol/L Chloride Level 95 mmol/L Carbon Dioxide Level 33 mmol/L Anion Gap 5.0 mmol/L Blood Urea Nitrogen 9 mg/dl Creatinine 1.18 mg/dl Est Creatinine Clear Calc Drug Dose 82.1 ml/min Estimated GFR () 79.5 Estimated GFR (Non- 68.6 BUN/Creatinine Ratio 7.6 Random Glucose 91 mg/dl Calcium Level 8.8 mg/dl Phosphorus Level 3.9 mg/dl Magnesium Level 1.7 mg/dl Assessment & Plan Pancytopenia secondary to chemotherapy. Counts are recovering however it has been slow. I suspect that is worsening dysphagia is on the basis of now recovering white cells producing worsening inflammation and esophagitis. THe only treatment is symptomatic with viscous lidocaine as needed and pain medicine as he is on. It (the analgesia) imay need increased for the time being.
[2017-12-03 11:58] VITALS: BP 92/64; PULSE 96; TEMP 36.6; O2SAT 97
--- NOTE | 2017-12-03 13:04 | Pain Management Progress Note ---
Pain Management Progress Note Date of Service Dec 03, 2017. Subjective Mr. Glasgow is reporting continued difficulty with pain control over the past 24 hours despite fentanyl 75 g patch, Dilaudid VALET ATTENDANT, and oral oxycodone. He continues utilize Dilaudid VALET ATTENDANT for breakthrough pain and utilize 6.25 mg over the last 24 hours. He is reporting no side effects from the medications including sedation or constipation at this time. He continues reported his pain ranges to a 3-6/10 at rest. He denies any significant increase in his pain with activity. Patient denies change in location or characteristic of his pain continues to describe pain in the right anterior chest wall and sternal region as well as the throat with swallowing. He has no further constitutional complaints at this time. Objective Vital Signs: Last Vital Signs Documentation Date Time Temp Pulse Resp B/P (MAP) Pulse Ox O2 Delivery O2 Flow Rate FiO2 12/03/17 12:00 Room Air 12/03/17 11:58 36.6 96 20 92/64 (73) 97 11/26/17 22:45 0.0 Physical Exam: Gen.: Mr. Glasgow appears his stated age of [age] years old and is sitting up upon entering the room in no acute distress. Speech and thought process appropriate. Mood and affect appropriate. Cognition intact. At several points during the interview he reports difficulty with swallowing saliva and spits into a bedside garbage can Chest: Moderately tender over the sternum and left anterior/lateral chest wall to direct palpation. He remains tender with AP and lateral compression. Neurologic: Cranial nerves grossly intact. Ambulatory function not witnessed. All 5 extremities have grossly intact 5 out of 5 strength Laboratory Laboratory Findings 12/03/17 04:43 Red Blood Count 2.67 L, Mean Corpuscular Volume 85.8, Mean Corpuscular Hemoglobin 28.8, Mean Corpuscular Hemoglobin Concent 33.6, Mean Platelet Volume 11.1 H, Neutrophils (%) (Auto) 55.9, Lymphocytes (%) (Auto) 22.0, Monocytes (%) (Auto) 19.7, Eosinophils (%) (Auto) 0.8, Basophils (%) (Auto) 0.8, Neutrophils # (Auto) 0.74 *L, Lymphocytes # (Auto) 0.29 L, Monocytes # (Auto) 0.26, Eosinophils # (Auto) 0.01, Basophils # (Auto) 0.01 Assessment 1. Small cell lung cancer 2. History of large mediastinal mass 3. Chest pain secondary to above 4. Esophagitis-likely radiation induced 5. Chemotherapy-induced neutropenia Recommendations 1. Recommend increasing final patch to 100 g every 72 hours. Orders are written 2. Recommend discontinuation of oxycodone tablets. Recommend initiation of oxycodone elixir 5 mg by mouth every 6 when necessary. Orders are written 3. Continue VALET ATTENDANT at current dosing we'll plan for discontinuation possibly tomorrow. 4. Recommend close monitoring of bowel habits given increasing dosing of narcotics. 5. Recommend scopolamine patch to diminish his oral secretions
[2017-12-03 14:58] VITALS: BP 102/66; PULSE 103; TEMP 36.5; O2SAT 98
[2017-12-03] MEDS: OXYCODONE HCL SOLN 5 MG/5 ML UDC PO PRN ×2 (15:04→19:41)
[2017-12-03] MEDS: SODIUM CHLORIDE 0.9% 1000ML 1,000 ML IV SCH (15:05)
[2017-12-03] MEDS: CHECK SCOPOLAMINE PATCH PLACEMENT SCH (15:12)
[2017-12-03 19:02] VITALS: BP 101/52; PULSE 101; TEMP 36.5; O2SAT 92
[2017-12-03] MEDS: PRAVASTATIN SOD 40 MG TAB PO SCH (21:21)
[2017-12-03 23:40] VITALS: BP 106/68; PULSE 110; TEMP 36.5; O2SAT 95
[2017-12-04] VITALS (7 sets, daily range): BP systolic 92–116; BP diastolic 62–73; PULSE 104–122; TEMP 36.5–37.2; O2SAT 95–99
[2017-12-04] MEDS: CHECK FENTANYL PATCH PLACEMENT SCH ×8 (00:59→23:43)
[2017-12-04] MEDS: CHECK SCOPOLAMINE PATCH PLACEMENT SCH ×4 (01:00→23:43)
[2017-12-04] MEDS: OXYCODONE HCL SOLN 5 MG/5 ML UDC PO PRN (02:27)
[2017-12-04] MEDS: ONDANSETRON INJ 2 MG/ML 2 ML VIAL IV SCH ×4 (05:10→23:39)
[2017-12-04 08:39] LABS: HEMATOCRIT 24.2 % (42-52); HEMOGLOBIN 8.2 g/dL (14.0-18.0); MEAN CELL VOLUME 85.8 fL (80-100); MEAN CORPUSCULAR HEMOGLOBIN 29.1 pg (25-34); MEAN CORPUSCULAR HGB CONC 33.9 g/dl (32-36); MEAN PLATELET VOLUME 11.4 fL (7.4-10.4); PLATELET COUNT 69 K/uL (130-400); RED CELL DISTRIBUTION WIDTH CV 15.4 % (11.5-14.5); RED CELL DISTRIBUTION WIDTH SD 46.9 fL (36.4-46.3); WHITE BLOOD COUNT 1.65 K/uL (4.8-10.8)
[2017-12-04] MEDS ORDERED: ONDANSETRON INJ 2 MG/ML 2 ML VIAL IV ONE (08:45)
[2017-12-04] MEDS: TORSEMIDE 20 MG TAB PO SCH (09:00)
[2017-12-04] MEDS: POLYETHYLENE (MIRALAX) 17 GM PACK PO SCH ×3 (09:00→20:16)
[2017-12-04 09:18] LABS: CREATININE 1.33 mg/dl (0.60-1.40); POTASSIUM 4.4 mmol/L (3.5-5.1)
--- NOTE | 2017-12-04 09:36 | Pain Management Progress Note ---
Pain Management Progress Note Date of Service Dec 04, 2017. Subjective Mr. Glasgow is reporting improved pain control over the past 24 hours with increasing his frontal patch to 100 g every 72 hours and oxycodone elixir. He utilized 2.5 mg of IV hydromorphone through his hydromorphone FAITH DOCTOR over the last 24 hours. He is reporting no side effects from the medications including sedation or constipation at this time. He continues reported his pain ranges to a 0-6/10 at rest. He denies any significant increase in his pain with activity. Patient denies change in location or characteristic of his pain continues to describe pain in the right anterior chest wall and sternal region as well as the throat with swallowing. He reports possible improvement in secretions with addition of scopolamine patch. He has no further constitutional complaints at this time. Objective Vital Signs: Last Vital Signs Documentation Date Time Temp Pulse Resp B/P (MAP) Pulse Ox O2 Delivery O2 Flow Rate FiO2 12/04/17 07:57 122 20 97/64 (75) 95 Room Air 12/04/17 03:50 37.2 11/26/17 22:45 0.0 Physical Exam: Gen.: Mr. Glasgow appears his stated age of [age] years old and is sitting up upon entering the room in no acute distress. Speech and thought process appropriate. Mood and affect appropriate. Cognition intact. At several points during the interview he reports difficulty with swallowing saliva and spits into a bedside garbage can Chest: Moderately tender over the sternum and left anterior/lateral chest wall to direct palpation. He remains tender with AP and lateral compression. Neurologic: Cranial nerves grossly intact. Ambulatory function not witnessed. All 5 extremities have grossly intact 5 out of 5 strength Laboratory Laboratory Findings 12/04/17 07:37 Red Blood Count 2.82 L, Mean Corpuscular Volume 85.8, Mean Corpuscular Hemoglobin 29.1, Mean Corpuscular Hemoglobin Concent 33.9, Mean Platelet Volume 11.4 H Assessment 1. Small cell lung cancer 2. History of large mediastinal mass 3. Chest pain secondary to above 4. Esophagitis-likely radiation induced 5. Chemotherapy-induced neutropenia Recommendations 1. Recommend increasing final patch to 125 g every 72 hours. Orders are written 2. Recommend discontinuation of IV hydromorphone FAITH DOCTOR. 3. Continue oxycodone elixir 5 mg by mouth every 6 when necessary. 4. Recommend close monitoring of bowel habits given increasing dosing of narcotics. 5. We will sign off at this time. The patient was provided our office contact information should he have difficulty with pain control as an outpatient. Please call with any questions.
[2017-12-04] MEDS: METOPROLOL SUCC 25MG EXT REL TAB PO SCH (09:57)
[2017-12-04] MEDS: CHOLECALCIFEROL 1000 INTER.UNIT TAB PO SCH (09:57)
[2017-12-04] MEDS: PANTOprazole SOD 40 MG TAB PO SCH ×2 (09:57→20:09)
[2017-12-04] MEDS: FLUCONAZOLE 100 MG TAB PO SCH (09:57)
[2017-12-04] MEDS: FERROUS SULFATE 325 MG TAB PO SCH (09:59)
[2017-12-04] MEDS: MAGNESIUM OXIDE 400 MG TAB PO SCH ×2 (09:59→20:10)
[2017-12-04] MEDS: THIAMINE HCL 100 MG TAB PO SCH (09:59)
[2017-12-04] MEDS: POT PHOSPHATE MONOBASIC W/ SOD TAB PO SCH ×4 (09:59→20:08)
[2017-12-04] MEDS: POTASSIUM CHLORIDE 20 MEQ TABCR PO SCH ×2 (10:00→20:10)
[2017-12-04] MEDS: FENTANYL 25 MCG/HR TDSY TD SCH (10:12)
[2017-12-04] MEDS: FENTANYL 100 MCG/HR TDSY TD SCH (10:12)
[2017-12-04] MEDS: FENTANYL PATCH REMOVE & WASTE SCH (10:17)
--- NOTE | 2017-12-04 11:10 | Hematology/Oncology Prog Note ---
Hematology/Onc Progress Note Date of Service Dec 04, 2017. Diagnoses Small Cell lung carcinoma Esophagitis Pancytopenia secondary to chemotherapy and radiation Medications Medications Administered Medications (Trade) Dose Ordered Sig/Elizabeth Route Start Time Stop Time Status Last Admin Dose Admin Sodium Chloride 2,000 ml @ 999 mls/hr Q2H1M STAT IV 11/24/17 14:02 11/24/17 16:07 DC 11/24/17 14:21 999 MLS/HR Ondansetron HCl (Zofran Inj) 4 mg NOW STAT IV 11/24/17 14:02 11/24/17 14:04 DC 11/24/17 14:21 4 MG Morphine Sulfate (MoRPHine SULFATE INJ) 6 mg NOW STAT IV 11/24/17 14:02 11/24/17 14:04 DC 11/24/17 14:22 6 MG Ondansetron HCl (Zofran Inj) 4 mg Q6H PRN IV 11/24/17 17:00 11/25/17 16:37 DC 11/25/17 07:46 4 MG Cyclobenzaprine HCl (Flexeril Tab) 10 mg HS PRN PO 11/24/17 17:15 12/24/17 17:14 12/04/17 09:57 10 MG Levothyroxine Sodium (Synthroid Tab) 112 mcg DAILYBB PO 11/25/17 06:30 11/25/17 16:37 DC 11/25/17 07:57 112 MCG Oxycodone HCl (Roxicodone Immediate Rel Tab) 5 mg Q4H PRN PO 11/24/17 17:15 11/26/17 12:31 DC 11/26/17 05:06 5 MG Apixaban (Eliquis Tab) 5 mg BID PO 11/24/17 20:00 11/26/17 12:31 DC 11/24/17 19:49 5 MG Cholecalciferol (Vitamin D Tab) 2,000 inter.unit DAILY PO 11/25/17 08:00 12/25/17 08:59 12/04/17 09:57 2,000 INTER.UNIT Ferrous Sulfate (Feosol Tab) 325 mg DAILY PO 11/25/17 08:00 12/25/17 08:59 12/04/17 09:59 325 MG Lactobacillus Acidophilus (Lactinex Granules Pack) 1 gm BID PEG 11/24/17 20:00 11/24/17 20:30 DC 11/24/17 19:49 1 GM Magnesium Oxide (Mag-Ox Tab) 400 mg Q2D@0900 PO 11/25/17 09:00 12/01/17 09:45 DC 12/01/17 08:28 400 MG Filgrastim (Neupogen Sq) 480 mcg DAILY SC 11/25/17 08:00 11/26/17 12:00 DC 11/26/17 10:19 480 MCG Filgrastim (Neupogen Sq) 480 mcg 1830 ONCE SC 11/24/17 18:30 11/24/17 18:31 DC 11/24/17 20:50 480 MCG Sodium Chloride 1,000 ml @ 100 mls/hr Q10H IV 11/24/17 17:15 11/27/17 10:20 DC 11/27/17 05:58 100 MLS/HR Lactobacillus Acidophilus (Floranex Tab) 4 tab BID PO 11/25/17 08:00 11/25/17 16:43 DC 11/25/17 07:57 4 TAB Hydromorphone HCl (Dilaudid Inj) 0.5 mg Q3H PRN IV 11/24/17 21:15 12/08/17 21:14 11/26/17 12:01 0.5 MG Hydromorphone HCl (Dilaudid Inj) 0.5 mg 2112 ONCE IV 11/24/17 21:12 11/24/17 21:18 DC 11/24/17 21:28 0.5 MG Magnesium Sulfate 4 gm/Sodium Phosphate 15 mmol/ Sodium Chloride 513 ml @ 128 mls/hr 0900 ONCE IV 11/25/17 09:00 11/25/17 13:00 DC 11/25/17 09:34 128 MLS/HR Bisacodyl (Dulcolax Supp) 10 mg STK-MED ONCE .ROUTE 11/25/17 10:21 11/25/17 10:22 DC 11/25/17 10:25 10 MG Ondansetron HCl (Zofran Inj) 4 mg Q6H IV 11/25/17 17:00 12/24/17 16:59 12/04/17 05:10 4 MG Thiamine HCl 100 mg/Syringe 10 ml @ 2 mls/min BID IV 11/25/17 20:00 11/30/17 09:32 DC 11/30/17 09:04 2 MLS/MIN Acetaminophen/ Hydrocodone Bitart (Lortab Elixir) 15 ml TIDM PRN PO 11/25/17 16:30 12/03/17 07:58 DC 12/03/17 05:44 15 ML Lidocaine HCl (Viscous Lidocaine 2% Soln) 20 ml Q6H PRN MT 11/25/17 16:30 12/25/17 16:29 11/26/17 13:39 20 ML Sodium Chloride 1,000 ml @ 999 mls/hr Q1H1M IV 11/25/17 16:30 11/25/17 17:30 DC 11/25/17 16:52 999 MLS/HR Polyethylene (Miralax Powder Packet) 17 gm BID PO 11/25/17 20:00 12/25/17 19:59 12/03/17 21:21 17 GM Cefepime HCl 2000 mg/Syringe 20 ml @ 5 mls/min Q8H IV 11/25/17 17:30 11/28/17 08:40 DC 11/28/17 02:00 5 MLS/MIN Vancomycin HCl 2500 mg/Sodium Chloride 550 ml @ 200 mls/hr TODAY@1745 ONCE IV 11/25/17 17:45 11/25/17 20:29 DC 11/25/17 19:13 200 MLS/HR Metoprolol Tartrate (Lopressor Iv) 5 mg Q6 IV. 11/25/17 18:30 11/30/17 12:26 DC 11/30/17 06:18 5 MG Vancomycin HCl 1500 mg/Sodium Chloride 530 ml @ 200 mls/hr Q12H IV 11/26/17 06:00 11/27/17 10:51 DC 11/27/17 05:57 200 MLS/HR Levothyroxine Sodium 25 mcg/ Syringe 1.25 ml @ 2 mls/min DAILY@09 IV 11/26/17 09:00 11/30/17 09:25 DC 11/29/17 09:21 2 MLS/MIN Sodium Chloride 1,000 ml @ 250 mls/hr Q4H IV 11/25/17 21:00 11/26/17 00:59 DC 11/25/17 21:07 250 MLS/HR Calcium Gluconate 2000 mg/Sodium Chloride 70 ml @ 70 mls/hr NOW ONCE IV 11/26/17 09:00 11/26/17 09:59 DC 11/26/17 09:11 70 MLS/HR Sodium Phosphate 30 mmol/Sodium Chloride 510 ml @ 88 mls/hr NOW ONCE IV 11/26/17 09:00 11/26/17 14:47 DC 11/26/17 10:16 88 MLS/HR Fentanyl (Duragesic Patch) 25 mcg Q3D@1000 TD 11/26/17 10:00 11/28/17 12:03 DC 11/26/17 10:22 25 MCG Miscellaneous Information (Check Fentanyl Patch Placement) 1 ea QS N/A 11/26/17 16:00 11/28/17 12:03 DC 11/28/17 07:18 1 EA Diphenhydramine HCl (Benadryl Inj) 25 mg ONE ONCE IV 11/26/17 09:45 11/26/17 09:46 DC 11/26/17 13:37 25 MG Acetaminophen 650 mg/Empty Bag 65 ml @ 260 mls/hr ONE ONCE IV 11/26/17 10:00 11/26/17 10:14 DC 11/26/17 13:36 260 MLS/HR Hydromorphone HCl (Dilaudid Lockstitch Tunnel Elastic Operator) 25 mg PRN PRN IV 11/26/17 12:45 12/04/17 08:57 DC 12/02/17 12:33 25 MG Sodium Chloride 1,000 ml @ 15 mls/hr Q24H IV 11/26/17 12:31 12/04/17 08:57 DC 12/03/17 15:05 15 MLS/HR Fluconazole/ Sodium Chloride 200 mg/Prmx 100 ml @ 100 mls/hr TODAY@1600,1700 IV 11/26/17 16:00 11/26/17 17:59 DC 11/26/17 16:42 100 MLS/HR Fluconazole/ Sodium Chloride 200 mg/Prmx 100 ml @ 100 mls/hr DAILY@1600 IV 11/27/17 16:00 11/30/17 09:32 DC 11/29/17 16:14 100 MLS/HR Pantoprazole Sodium 40 mg/ Syringe 10 ml @ 5 mls/min DAILY@21 IV 11/27/17 21:00 11/30/17 09:32 DC 11/30/17 09:04 5 MLS/MIN Potassium Phosphate 15 mmol/ Sodium Chloride 255 ml @ 88 mls/hr TODAY@1030 ONCE IV 11/27/17 10:30 11/27/17 13:23 DC 11/27/17 11:50 88 MLS/HR Vancomycin HCl 1500 mg/Sodium Chloride 530 ml @ 200 mls/hr Q10H IV 11/27/17 16:00 11/28/17 08:40 DC 11/28/17 02:11 200 MLS/HR Sodium Chloride ([place] Nasal [place]) 225 sprays STK-MED ONCE .ROUTE 11/27/17 18:11 11/27/17 18:12 DC 11/28/17 21:39 225 SPRAYS Sodium Phosphate 15 mmol/Sodium Chloride 255 ml @ 88 mls/hr TODAY@0745 ONCE IV 11/28/17 07:45 11/28/17 10:38 DC 11/28/17 08:41 88 MLS/HR Fentanyl (Duragesic Patch) 50 mcg Q3D@1230 TD 11/28/17 12:30 11/29/17 08:28 DC 11/28/17 12:17 50 MCG Miscellaneous (Fentanyl Patch Remove & Waste) 1 ea Q3D@1229 N/A 11/28/17 12:29 11/29/17 09:12 DC 11/28/17 12:20 1 EA Miscellaneous Information (Check Fentanyl Patch Placement) 1 ea QS N/A 11/28/17 16:00 11/29/17 08:28 DC 11/29/17 00:34 1 EA Vancomycin HCl 2500 mg/Sodium Chloride 550 ml @ 200 mls/hr NOW STAT IV 11/29/17 02:00 11/29/17 04:44 DC 11/29/17 02:37 200 MLS/HR Magnesium Sulfate 1 gm/Prmx 100 ml @ 100 mls/hr NOW STAT IV 11/29/17 07:47 11/29/17 08:46 DC 11/29/17 09:21 100 MLS/HR Sodium Phosphate 21 mmol/Sodium Chloride 507 ml @ 144.857 mls/hr NOW STAT IV 11/29/17 07:49 11/29/17 11:18 DC 11/29/17 09:21 144.857 MLS/HR Fentanyl (Duragesic Patch) 75 mcg Q72H TD 11/29/17 09:30 12/04/17 09:36 DC 12/02/17 08:18 75 MCG Miscellaneous (Fentanyl Patch Remove & Waste) 1 ea Q3D N/A 12/02/17 09:29 12/04/17 09:33 DC 12/02/17 08:18 1 EA Miscellaneous Information (Check Fentanyl Patch Placement) 1 ea QS N/A 11/29/17 16:00 12/04/17 09:34 DC 12/04/17 08:11 1 EA Torsemide (Demadex Tab) 20 mg BID PO 11/29/17 09:30 12/29/17 09:29 12/03/17 21:21 20 MG Miscellaneous (Fentanyl Patch Remove & Waste) 1 ea 0940 ONCE N/A 11/29/17 09:40 11/29/17 09:41 DC 11/29/17 09:40 1 EA Vancomycin HCl 1500 mg/Sodium Chloride 530 ml @ 200 mls/hr Q10H IV 11/29/17 12:00 11/30/17 12:27 DC 11/30/17 08:45 200 MLS/HR Potassium Chloride 10 meq/ Prmx 100 ml @ 100 mls/hr Q1H IV 11/30/17 08:30 11/30/17 10:29 DC 11/30/17 16:19 100 MLS/HR Magnesium Sulfate 1 gm/Prmx 100 ml @ 100 mls/hr Q1H IV 11/30/17 08:30 11/30/17 10:29 DC 11/30/17 16:19 100 MLS/HR Potassium Chloride (Klor-Con Tab) 60 meq BID PO 11/30/17 09:00 12/01/17 15:30 DC 12/01/17 08:27 60 MEQ Potassium Phosphate 24 mmol/ Sodium Chloride 508 ml @ 88 mls/hr TODAY@0845 ONCE IV 11/30/17 08:45 11/30/17 14:31 DC 11/30/17 09:04 88 MLS/HR Pravastatin Sodium (Pravachol Tab) 80 mg HS PO 11/30/17 21:00 12/30/17 20:59 12/03/17 21:21 80 MG Fluconazole (Diflucan Tab) 100 mg QAM PO 12/01/17 09:00 12/11/17 08:59 12/04/17 09:57 100 MG Pantoprazole Sodium (Protonix Tab) 40 mg BID PO 11/30/17 21:00 12/30/17 20:59 12/04/17 09:57 40 MG Thiamine HCl (Vitamin B-1 Tab) 100 mg QAM PO 12/01/17 09:00 12/31/17 08:59 12/04/17 09:59 100 MG Metoprolol Succinate (Toprol Xl Tab) 25 mg QAM PO 12/01/17 09:00 12/31/17 08:59 12/04/17 09:57 25 MG Heparin Sodium (Porcine) (Heparin 10 Unit/ ml 5 ml Flush) 5 ml PRN PRN FLUSH 11/30/17 16:30 12/30/17 16:29 12/04/17 10:51 5 ML Magnesium Sulfate 1 gm/Prmx 100 ml @ 100 mls/hr Q1H IV 12/01/17 10:00 12/01/17 11:59 DC 12/01/17 12:48 100 MLS/HR Magnesium Oxide (Mag-Ox Tab) 400 mg BID PO 12/01/17 21:00 12/31/17 20:59 12/04/17 09:59 400 MG Potassium Phosphate 21 mmol/ Sodium Chloride 507 ml @ 144 mls/hr 1200 ONCE IV 12/01/17 12:00 12/01/17 15:31 DC 12/01/17 10:41 144 MLS/HR Potassium Chloride (Klor-Con Pwd) 60 meq BID PO 12/01/17 21:00 12/03/17 08:14 DC 12/02/17 21:22 60 MEQ Potassium/ Phosphorus/Sodium (Phospha 250 Neutral 155-852-130 Mg) 1 tab QID PO 12/02/17 13:00 01/01/18 12:59 12/04/17 09:59 1 TAB Magnesium Sulfate 1 gm/Prmx 100 ml @ 100 mls/hr Q1H IV 12/02/17 10:00 12/02/17 13:59 DC 12/02/17 12:09 100 MLS/HR Magnesium Sulfate 1 gm/Prmx 100 ml @ 100 mls/hr NOW STAT IV 12/03/17 07:25 12/03/17 08:24 DC 12/03/17 07:51 100 MLS/HR Potassium Chloride (Klor-Con Tab) 60 meq BID PO 12/03/17 09:00 01/02/18 08:59 12/04/17 10:00 60 MEQ Fentanyl (Duragesic Patch) 25 mcg Q72H TD 12/03/17 08:45 12/04/17 09:36 DC 12/03/17 09:30 25 MCG Miscellaneous Information (Check Fentanyl Patch Placement) 1 ea QS N/A 12/03/17 16:00 12/04/17 09:34 DC 12/04/17 08:11 1 EA Oxycodone HCl (Roxicodone Soln) 5 mg Q4 PRN PO 12/03/17 08:45 12/17/17 08:44 12/04/17 02:27 5 MG Scopolamine (Transderm-Scop Patch) 1.5 mg Q72H TD 12/03/17 08:45 01/02/18 08:44 12/03/17 09:31 1.5 MG Miscellaneous Information (Check Scopolamine Patch Placement) 1 ea QS N/A 12/03/17 16:00 01/02/18 15:59 12/04/17 08:11 1 EA Ondansetron HCl (Zofran Inj) 4 mg NOW ONCE IV 12/04/17 08:45 12/04/17 08:46 DC 12/04/17 08:56 4 MG Fentanyl (Duragesic Patch) 25 mcg Q72H TD 12/04/17 09:45 12/18/17 09:44 12/04/17 10:12 25 MCG Miscellaneous (Fentanyl Patch Remove & Waste) 1 ea Q3D@0944 N/A 12/04/17 09:44 01/03/18 09:43 12/04/17 10:17 1 EA Fentanyl (Duragesic Patch) 100 mcg Q3D@0945 TD 12/04/17 09:45 12/18/17 09:44 12/04/17 10:12 100 MCG Subjective Complains more of painful swallowing. Continues to have trouble swallowing. His blood counts are returning and I am assuming that this recrudescence of his dysphagia is on the basis of now inflammation from newly appearing granulocytes. Review of Systems: Constitutional: Negative for night sweats, or fever Eyes: Negative for event change of vision ENT: Negative for epistaxis, nasal discharge, sore throat, or deafness Cardiovascular: Negative for chest pain, palpitations, dizziness, diaphoresis Respiratory: Negative for new shortness of breath,hemoptysis, or purulent cough Gastrointestinal: Negative for diarrhea, hematemesis, melena, nausea, vomiting , or dyspepsia Integumentary (skin): Negative for rash or jaundice discoloration Neurological: Negative for weakness, seizure activity, headache, or dizziness Lymphatic/Hematologic: Negative for petechiae, bleeding or new adenopathy Musculoskeletal: Negative for new joint or back pain Allergic/Immunologic: Negative for unusual rash or pruritis. Vital Signs Vital Signs Past 12 Hours Date Time Temp Pulse Resp B/P (MAP) Pulse Ox O2 Delivery O2 Flow Rate FiO2 12/04/17 07:57 122 20 97/64 (75) 95 Room Air 12/04/17 04:00 Room Air 12/04/17 03:50 37.2 116 18 116/62 (80) 95 Room Air 12/04/17 00:00 Room Air 12/03/17 23:40 36.5 110 20 106/68 (81) 95 Room Air Physical Exam Constitutional: vitals are stable. Alopecic delightful gentleman Eyes: Eyes are DANG EOMI without conjuctival erythema or icterus. ENT: External examination was negative for masses. Neck: Negative for masses or palpable thyromegaly Respiratory: Lung sounds were generally clear bilaterally Cardiovascular: Heart was RRR without significant murmur, gallops aoe rubs Gastrointestinal: No palpable hepatic or splenomegaly. The abdomen was soft with normal bowel sounds. Lymphatic system: there was no palpable peripheral lymphadenopathy Musculoskeletal System: The musculoskeletal system seemed concordant with age. Skin: The skin was negative for jaundice. Neurologic exam: The exam was negative for any focal findings. Deep tendon reflexes were equal and symmetrical. Psychiatric exam: Was essentially negative with normal mood and effect. Extremities: Complains of rather significant pain in the inner aspect of his right ankle. It is mildly erythematous and tender. This reminiscent of a gouty attack and he states that he has had gout before. Laboratory Last 24 Hours Test 12/04/17 07:37 White Blood Count 1.65 K/uL Red Blood Count 2.82 M/uL Hemoglobin 8.2 g/dL Hematocrit 24.2 % Mean Corpuscular Volume 85.8 fL Mean Corpuscular Hemoglobin 29.1 pg Mean Corpuscular Hemoglobin Concent 33.9 g/dl Platelet Count 69 K/uL Mean Platelet Volume 11.4 fL RDW Standard Deviation 46.9 fL RDW Coefficient of Variation 15.4 % Neutrophils % (Manual) 70.8 % Lymphocytes % (Manual) 11.5 % Monocytes % (Manual) 15.9 % Metamyelocytes % 1.8 % Neutrophils # (Manual) 1.17 K/uL Total Absolute Neutrophils 1.17 K/uL Lymphocytes # (Manual) 0.19 K/uL Total Absolute Lymphocytes 0.19 K/uL Monocytes # (Manual) 0.26 K/uL Metamyelocytes # 0.03 K/uL Toxic Granulation 2+ Giant Platelets 1+ Microcytosis PRESENT Sodium Level 135 mmol/L Potassium Level 4.4 mmol/L Chloride Level 97 mmol/L Carbon Dioxide Level 28 mmol/L Anion Gap 10.0 mmol/L Blood Urea Nitrogen 14 mg/dl Creatinine 1.33 mg/dl Est Creatinine Clear Calc Drug Dose 73.1 ml/min Estimated GFR () 68.8 Estimated GFR (Non- 59.3 BUN/Creatinine Ratio 10.2 Random Glucose 103 mg/dl Calcium Level 9.0 mg/dl Phosphorus Level 4.0 mg/dl Magnesium Level 1.8 mg/dl Assessment & Plan Pancytopenia secondary to chemotherapy now and finally clearly recovering. Counts are recovering however it has been slow. He may be experiencing a gouty attack involving the right inner or medial malleolus. Dysphasia continues to be an issue that has worsened the past couple of days as his white count recovers. Hopefully this will be only brief.
--- NOTE | 2017-12-04 13:49 | Progress Note ---
Medicine Progress Note Date & Time of Visit: Dec 04, 2017 at 13:50 . Subjective CC: Follow-up visit for dysphagia and other problems. HPI: Recurrent nausea and vomiting this morning after trying to eat some breakfast. Move bowels this morning- first time in a few days. Ongoing right-sided chest pain. Seen by Pain Management and analgesics adjusted. Occasional nonproductive cough. Left ankle pain similar to previous gout attack. ROS: General- no fever, no chills Resp- as noted above in HPI Cardiac- no anginal symptoms; chronic dependent edema GI- as noted above in HPI - no dysuria, no difficulty voiding . Objective Last 8 Hrs Date Time Temp Pulse Resp B/P (MAP) Pulse Ox O2 Delivery O2 Flow Rate FiO2 12/04/17 12:00 36.7 109 20 110/70 (83) 97 Room Air 12/04/17 11:30 Room Air 12/04/17 07:57 122 20 97/64 (75) 95 Room Air 12/04/17 07:30 Room Air 0.0 Physical Exam: General- chronically-ill appearing, no acute distress Head- alopecia Eyes- anicteric Lungs- few scattered rhonchi Cardiovascular- irregular, tachycardic; 1-2+ pretibial edema Abdomen- + BS, slightly distended, soft, nontender Extremities- no cyanosis; mild erythema and tenderness left medial malleolus Neuro- alert, oriented . Laboratory Results: Last 24 Hours Test 12/04/17 07:37 White Blood Count 1.65 K/uL Red Blood Count 2.82 M/uL Hemoglobin 8.2 g/dL Hematocrit 24.2 % Mean Corpuscular Volume 85.8 fL Mean Corpuscular Hemoglobin 29.1 pg Mean Corpuscular Hemoglobin Concent 33.9 g/dl Platelet Count 69 K/uL Mean Platelet Volume 11.4 fL RDW Standard Deviation 46.9 fL RDW Coefficient of Variation 15.4 % Neutrophils % (Manual) 70.8 % Lymphocytes % (Manual) 11.5 % Monocytes % (Manual) 15.9 % Metamyelocytes % 1.8 % Neutrophils # (Manual) 1.17 K/uL Total Absolute Neutrophils 1.17 K/uL Lymphocytes # (Manual) 0.19 K/uL Total Absolute Lymphocytes 0.19 K/uL Monocytes # (Manual) 0.26 K/uL Metamyelocytes # 0.03 K/uL Toxic Granulation 2+ Giant Platelets 1+ Microcytosis PRESENT Sodium Level 135 mmol/L Potassium Level 4.4 mmol/L Chloride Level 97 mmol/L Carbon Dioxide Level 28 mmol/L Anion Gap 10.0 mmol/L Blood Urea Nitrogen 14 mg/dl Creatinine 1.33 mg/dl Est Creatinine Clear Calc Drug Dose 73.1 ml/min Estimated GFR () 68.8 Estimated GFR (Non- 59.3 BUN/Creatinine Ratio 10.2 Random Glucose 103 mg/dl Calcium Level 9.0 mg/dl Phosphorus Level 4.0 mg/dl Magnesium Level 1.8 mg/dl Assessment & Plan ODYNOPHAGIA / DYSPHAGIA Probably due to combination of extrinsic compression on esophagus and esophagitis (radiation and / or Candidal). Revert back to full liquid diet. Continue PPI, anti-emetics, fluconazole. SMALL CELL CARCINOMA OF LUNG Management per Medical Oncology. Pain Management assisting with cancer-associated pain. CORONARY ARTERY DISEASE No anginal symptoms; chest pain probably due to malignancy. Holding aspirin because of GI symptoms, recent hemoptysis, recent epistaxis, thrombocytopenia. Continue metoprolol. ATRIAL FIBRILLATION Chronic AF. Rate fast today. Continue oral metoprolol with additional IV doses as necessary. Holding anticoagulants because of GI symptoms, recent hemoptysis, recent epistaxis, thrombocytopenia. CHF Chronic left ventricular diastolic heart failure. Decrease torsemide from BID to daily due to decreased oral intake. Follow. HYPERTENSION Continue metoprolol as noted above. CHRONIC HYPOXIC RESPIRATORY FAILURE Continue oxygen. SLEEP APNEA Does not tolerate CPAP. DM TYPE 2 Hgb A1C 6.3 10/18/17. Blood sugars tend due to acute illness, variable oral intake, steroids, etc. FBS this morning = 103. Insulin coverage as needed. LEFT ANKLE PAIN Suspect recurrent gout flare. IV methylprednisolone today. Check uric acid with next labs. PANCYTOPENIA Secondary to chemotherapy. Recovering. VTE PROPHYLAXIS No anticoagulants due to thrombocytopenia and GI symptoms. SCD's. Ambulate as able. DISPOSITION To be determined. Primary care follow-up with Dr. James. Hematology / Oncology follow-up with Drs. Olsen and Lorenza. . Continued [facility] stay due to: multiple IV medications needed Discharge planning: uncertain Consultants: Medical Oncology Pain Management Palliative Care . Current Inpatient Medications: Current Inpatient Medications Medications (Trade) Dose Ordered Sig/Elizabeth Route Start Time Stop Time Status Last Admin Dose Admin Cyclobenzaprine HCl (Flexeril Tab) 10 mg HS PRN PO 11/24/17 17:15 12/24/17 17:14 12/04/17 09:57 10 MG Eszopiclone (Lunesta Tab) 1 mg HS PRN PO 11/24/17 17:15 12/24/17 17:14 Nitroglycerin (Nitrostat Tab) 0.4 mg UD PRN SL 11/24/17 17:15 12/24/17 17:14 Cholecalciferol (Vitamin D Tab) 2,000 inter.unit DAILY PO 11/25/17 08:00 12/25/17 08:59 12/04/17 09:57 2,000 INTER.UNIT Ferrous Sulfate (Feosol Tab) 325 mg DAILY PO 11/25/17 08:00 12/25/17 08:59 12/04/17 09:59 325 MG Hydromorphone HCl (Dilaudid Inj) 0.5 mg Q3H PRN IV 11/24/17 21:15 12/08/17 21:14 11/26/17 12:01 0.5 MG Ondansetron HCl (Zofran Inj) 4 mg Q6H IV 11/25/17 17:00 12/24/17 16:59 12/04/17 11:35 4 MG Lidocaine HCl (Viscous Lidocaine 2% Soln) 20 ml Q6H PRN MT 11/25/17 16:30 12/25/17 16:29 11/26/17 13:39 20 ML Polyethylene (Miralax Powder Packet) 17 gm BID PO 11/25/17 20:00 12/25/17 19:59 12/03/17 21:21 17 GM Torsemide (Demadex Tab) 20 mg BID PO 11/29/17 09:30 12/29/17 09:29 12/03/17 21:21 20 MG Pravastatin Sodium (Pravachol Tab) 80 mg HS PO 11/30/17 21:00 12/30/17 20:59 12/03/17 21:21 80 MG Fluconazole (Diflucan Tab) 100 mg QAM PO 12/01/17 09:00 12/11/17 08:59 12/04/17 09:57 100 MG Pantoprazole Sodium (Protonix Tab) 40 mg BID PO 11/30/17 21:00 12/30/17 20:59 12/04/17 09:57 40 MG Thiamine HCl (Vitamin B-1 Tab) 100 mg QAM PO 12/01/17 09:00 12/31/17 08:59 12/04/17 09:59 100 MG Metoprolol Succinate (Toprol Xl Tab) 25 mg QAM PO 12/01/17 09:00 12/31/17 08:59 12/04/17 09:57 25 MG Heparin Sodium (Porcine) (Heparin 10 Unit/ ml 5 ml Flush) 5 ml PRN PRN FLUSH 11/30/17 16:30 12/30/17 16:29 12/04/17 10:51 5 ML Magnesium Oxide (Mag-Ox Tab) 400 mg BID PO 12/01/17 21:00 12/31/17 20:59 12/04/17 09:59 400 MG Potassium/ Phosphorus/Sodium (Phospha 250 Neutral 155-852-130 Mg) 1 tab QID PO 12/02/17 13:00 01/01/18 12:59 12/04/17 13:02 1 TAB Potassium Chloride (Klor-Con Tab) 60 meq BID PO 12/03/17 09:00 01/02/18 08:59 12/04/17 10:00 60 MEQ Oxycodone HCl (Roxicodone Soln) 5 mg Q4 PRN PO 12/03/17 08:45 12/17/17 08:44 12/04/17 02:27 5 MG Scopolamine (Transderm-Scop Patch) 1.5 mg Q72H TD 12/03/17 08:45 01/02/18 08:44 12/03/17 09:31 1.5 MG Miscellaneous (Remove Transderm-Scop Patch) 1 ea Q72H N/A 12/06/17 08:44 01/05/18 08:43 Miscellaneous Information (Check Scopolamine Patch Placement) 1 ea QS N/A 12/03/17 16:00 01/02/18 15:59 12/04/17 08:11 1 EA Fentanyl (Duragesic Patch) 25 mcg Q72H TD 12/04/17 09:45 12/18/17 09:44 12/04/17 10:12 25 MCG Miscellaneous (Fentanyl Patch Remove & Waste) 1 ea Q3D@0944 N/A 12/04/17 09:44 01/03/18 09:43 12/04/17 10:17 1 EA Miscellaneous Information (Check Fentanyl Patch Placement) 1 ea QS N/A 12/04/17 16:00 01/03/18 15:59 Miscellaneous (Fentanyl Patch Remove & Waste) 1 ea Q3D@0944 N/A 12/07/17 09:44 01/06/18 09:43 Fentanyl (Duragesic Patch) 100 mcg Q3D@0945 TD 12/04/17 09:45 12/18/17 09:44 12/04/17 10:12 100 MCG Miscellaneous Information (Check Fentanyl Patch Placement) 1 ea QS N/A 12/04/17 16:00 01/03/18 15:59
[2017-12-04] MEDS ORDERED: METHYLPREDNISOLONE IV 20 MG in SYRINGE 0 ML IV ONE (14:00)
[2017-12-04] MEDS: PRAVASTATIN SOD 40 MG TAB PO SCH (20:09)
[2017-12-04 22:57] LABS: HEMATOCRIT 22.7 % (42-52); HEMOGLOBIN 7.6 g/dL (14.0-18.0); MEAN CORPUSCULAR HEMOGLOBIN 28.8 pg (25-34); MEAN CORPUSCULAR HGB CONC 33.5 g/dl (32-36); RED CELL DISTRIBUTION WIDTH CV 15.3 % (11.5-14.5); RED CELL DISTRIBUTION WIDTH SD 46.1 fL (36.4-46.3); WHITE BLOOD COUNT 2.02 K/uL (4.8-10.8)
[2017-12-04 23:16] LABS: CALCIUM 8.7 mg/dl (8.5-10.1); CREATININE 1.36 mg/dl (0.60-1.40); POTASSIUM 5.1 mmol/L (3.5-5.1); URIC ACID 8.6 mg/dl (2.6-7.2)
[2017-12-04 23:45] LABS: MEAN PLATELET VOLUME 10.9 fL (7.4-10.4); PLATELET COUNT 89 K/uL (130-400)
[2017-12-04 23:47] LABS: IG# 0.02 K/uL (0.00-0.02); LYMPH % 8.4 %; LYMPH ABS # 0.17 K/uL (1.2-3.4); MONO % 5.9 %; MONO ABS # 0.12 K/uL (0.11-0.59); NEUT % 84.7 %; NEUT ABS # 1.71 K/uL (1.4-6.5)
[2017-12-05 03:43] VITALS: BP 110/66; PULSE 89; TEMP 36.4; O2SAT 97
[2017-12-05] MEDS: ONDANSETRON INJ 2 MG/ML 2 ML VIAL IV SCH ×3 (05:45→16:37)
[2017-12-05] MEDS: CHECK FENTANYL PATCH PLACEMENT SCH ×4 (08:00→16:36)
[2017-12-05] MEDS: CHECK SCOPOLAMINE PATCH PLACEMENT SCH ×2 (08:04→16:36)
[2017-12-05] MEDS: CHOLECALCIFEROL 1000 INTER.UNIT TAB PO SCH (08:05)
[2017-12-05 08:06] VITALS: BP 109/70; PULSE 102; TEMP 36.3; O2SAT 94
[2017-12-05] MEDS: TORSEMIDE 20 MG TAB PO SCH (08:06)
[2017-12-05] MEDS: PANTOprazole SOD 40 MG TAB PO SCH ×2 (08:06→19:35)
[2017-12-05] MEDS: THIAMINE HCL 100 MG TAB PO SCH (08:06)
[2017-12-05] MEDS: METOPROLOL SUCC 25MG EXT REL TAB PO SCH (08:06)
[2017-12-05] MEDS: FERROUS SULFATE 325 MG TAB PO SCH (08:06)
[2017-12-05] MEDS: MAGNESIUM OXIDE 400 MG TAB PO SCH ×2 (08:07→19:35)
[2017-12-05] MEDS: FLUCONAZOLE 100 MG TAB PO SCH (08:07)
[2017-12-05] MEDS: POLYETHYLENE (MIRALAX) 17 GM PACK PO SCH ×2 (08:07→19:36)
[2017-12-05] MEDS: POT PHOSPHATE MONOBASIC W/ SOD TAB PO SCH ×4 (08:07→19:34)
[2017-12-05] MEDS ORDERED: FENTANYL PATCH REMOVE & WASTE SCH (09:29)
[2017-12-05] MEDS ORDERED: FENTANYL 100 MCG/HR TDSY TD SCH (09:30)
[2017-12-05] MEDS ORDERED: INSULIN GLARGINE SOLOSTAR 100 UNITS/ML 3 ML PEN SC ONE (10:28)
[2017-12-05] MEDS ORDERED: GLUCOSE 10 TABS/TUBE PO PRN (10:45)
[2017-12-05] MEDS ORDERED: GLUCAGON FOR INJ 1 MG VIAL SQ PRN (10:45)
[2017-12-05] MEDS ORDERED: GLUCOSE 40% GEL 15 GM TUBE PO PRN (10:45)
[2017-12-05] MEDS ORDERED: DEXTROSE 50% 50 ML SYR IV PRN (10:45)
[2017-12-05] MEDS: INSULIN ASPART 100 UNITS/ML 3 ML PEN SC SCH ×3 (11:00→20:31)
[2017-12-05 11:35] VITALS: BP 97/62; PULSE 97; TEMP 36.6; O2SAT 98
[2017-12-05] MEDS ORDERED: METHYLPREDNISOLONE IV 20 MG in SYRINGE 0 ML IV ONE (14:00)
[2017-12-05 15:32] VITALS: BP 104/59; PULSE 100; TEMP 36.5; O2SAT 100
[2017-12-05] MEDS ORDERED: CHECK FENTANYL PATCH PLACEMENT SCH (16:00)
[2017-12-05 19:15] VITALS: BP 104/65; PULSE 100; TEMP 36.7; O2SAT 97
[2017-12-05] MEDS: PRAVASTATIN SOD 40 MG TAB PO SCH (19:35)
[2017-12-05] MEDS: HYDROmorphone INJ 0.5 MG/0.5 ML SYR IV PRN (19:44)
[2017-12-05] MEDS: INSULIN GLARGINE SOLOSTAR 100 UNITS/ML 3 ML PEN SC SCH (20:32)
--- NOTE | 2017-12-05 20:43 | Progress Note ---
Medicine Progress Note Date & Time of Visit: Dec 05, 2017 at 10:20 . Subjective CC: Follow-up visit for dysphagia and other problems. HPI: Tolerating full liquids. No vomiting since yesterday morning. Has difficulty swallowing large tablets like KCl. No significant odynophagia. No melena or hematochezia. Ongoing right chest wall pain. Left ankle pain improved. ROS: General- no fever, no chills Resp- occasional cough; no shortness of breath Cardiac- no angina, persistent edema GI- as noted above in HPI - no dysuria, no difficulty voiding . Objective Last 8 Hrs Date Time Temp Pulse Resp B/P (MAP) Pulse Ox O2 Delivery O2 Flow Rate FiO2 12/05/17 20:00 Room Air 12/05/17 19:15 36.7 100 20 104/65 (78) 97 Room Air 12/05/17 16:10 Room Air 12/05/17 15:32 36.5 100 20 104/59 (74) 100 Room Air Physical Exam: General- chronically-ill appearing, no acute distress Head- alopecia Eyes- anicteric Lungs- essentially clear Cardiovascular- irregular; 1-2+ pretibial edema Abdomen- + BS, slightly distended, soft, nontender Extremities- no cyanosis; less erythema and tenderness left medial malleolus Neuro- alert, oriented . Laboratory Results: Last 24 Hours Test 12/04/17 22:42 12/05/17 11:26 12/05/17 15:53 12/05/17 20:03 White Blood Count 2.02 K/uL Red Blood Count 2.64 M/uL Hemoglobin 7.6 g/dL Hematocrit 22.7 % Mean Corpuscular Volume 86.0 fL Mean Corpuscular Hemoglobin 28.8 pg Mean Corpuscular Hemoglobin Concent 33.5 g/dl Platelet Count 89 K/uL Mean Platelet Volume 10.9 fL Neutrophils (%) (Auto) 84.7 % Lymphocytes (%) (Auto) 8.4 % Monocytes (%) (Auto) 5.9 % Eosinophils (%) (Auto) 0.0 % Basophils (%) (Auto) 0.0 % Neutrophils # (Auto) 1.71 K/uL Lymphocytes # (Auto) 0.17 K/uL Monocytes # (Auto) 0.12 K/uL Eosinophils # (Auto) 0.00 K/uL Basophils # (Auto) 0.00 K/uL RDW Standard Deviation 46.1 fL RDW Coefficient of Variation 15.3 % Immature Granulocyte % (Auto) 1.0 % Immature Granulocyte # (Auto) 0.02 K/uL Hyposegmented Neutrophils 1+ Toxic Granulation 1+ Platelet Estimate DECREASED Sodium Level 133 mmol/L Potassium Level 5.1 mmol/L Chloride Level 97 mmol/L Carbon Dioxide Level 28 mmol/L Anion Gap 7.0 mmol/L Blood Urea Nitrogen 14 mg/dl Creatinine 1.36 mg/dl Est Creatinine Clear Calc Drug Dose 71.5 ml/min Estimated GFR () 66.9 Estimated GFR (Non- 57.8 BUN/Creatinine Ratio 10.3 Random Glucose 197 mg/dl Uric Acid 8.6 mg/dl Calcium Level 8.7 mg/dl Bedside Glucose 149 mg/dl 166 mg/dl 216 mg/dl Assessment & Plan ODYNOPHAGIA / DYSPHAGIA Probably due to combination of extrinsic compression on esophagus and esophagitis (radiation and / or Candidal). Tolerating full liquid diet. Continue PPI, anti-emetics, fluconazole. SMALL CELL CARCINOMA OF LUNG Management per Medical Oncology. Pain Management assisting with cancer-associated pain. CORONARY ARTERY DISEASE No anginal symptoms; chest pain probably due to malignancy. Holding aspirin because of GI symptoms, recent hemoptysis, recent epistaxis, thrombocytopenia. Continue metoprolol. ATRIAL FIBRILLATION Chronic AF. Rate fast at times. Continue oral metoprolol with additional IV doses as necessary. Holding anticoagulants because of GI symptoms, recent hemoptysis, recent epistaxis, thrombocytopenia. CHF Chronic left ventricular diastolic heart failure. Decreased torsemide from BID to daily due to decreased oral intake. Follow. HYPERTENSION Continue metoprolol as noted above. CHRONIC HYPOXIC RESPIRATORY FAILURE Continue oxygen. SLEEP APNEA Does not tolerate CPAP. DM TYPE 2 Hgb A1C 6.3 10/18/17. Blood sugars tend due to acute illness, variable oral intake, steroids, etc. FBS this morning = 197. Lantus / NovoLog per protocol. LEFT ANKLE PAIN Suspect recurrent gout flare. Uric acid 8.6. IV methylprednisolone given yesterday with improvement; repeat dose today. PANCYTOPENIA Secondary to chemotherapy. Recovering. NUTRITION Seems prudent to continue full liquid diet at this time due to GI symptoms. Nutrition following. VTE PROPHYLAXIS No anticoagulants due to thrombocytopenia and GI symptoms. SCD's. Ambulate as able. DISPOSITION To be determined. Primary care follow-up with Dr. James. Hematology / Oncology follow-up with Drs. Olsen and Lorenza. . Continued [facility] stay due to: multiple IV medications needed Discharge planning: uncertain Consultants: Medical Oncology Pain Management Palliative Care . Current Inpatient Medications: Current Inpatient Medications Medications (Trade) Dose Ordered Sig/Elizabeth Route Start Time Stop Time Status Last Admin Dose Admin Cyclobenzaprine HCl (Flexeril Tab) 10 mg HS PRN PO 11/24/17 17:15 12/24/17 17:14 12/04/17 09:57 10 MG Eszopiclone (Lunesta Tab) 1 mg HS PRN PO 11/24/17 17:15 12/24/17 17:14 Nitroglycerin (Nitrostat Tab) 0.4 mg UD PRN SL 11/24/17 17:15 12/24/17 17:14 Cholecalciferol (Vitamin D Tab) 2,000 inter.unit DAILY PO 11/25/17 08:00 12/25/17 08:59 12/05/17 08:05 2,000 INTER.UNIT Ferrous Sulfate (Feosol Tab) 325 mg DAILY PO 11/25/17 08:00 12/25/17 08:59 12/05/17 08:06 325 MG Hydromorphone HCl (Dilaudid Inj) 0.5 mg Q3H PRN IV 11/24/17 21:15 12/08/17 21:14 12/05/17 19:44 0.5 MG Ondansetron HCl (Zofran Inj) 4 mg Q6H IV 11/25/17 17:00 12/24/17 16:59 12/05/17 16:37 4 MG Lidocaine HCl (Viscous Lidocaine 2% Soln) 20 ml Q6H PRN MT 11/25/17 16:30 12/25/17 16:29 11/26/17 13:39 20 ML Polyethylene (Miralax Powder Packet) 17 gm BID PO 11/25/17 20:00 12/25/17 19:59 12/05/17 19:36 17 GM Pravastatin Sodium (Pravachol Tab) 80 mg HS PO 11/30/17 21:00 12/30/17 20:59 12/05/17 19:35 80 MG Fluconazole (Diflucan Tab) 100 mg QAM PO 12/01/17 09:00 1/16/18 08:59 12/05/17 08:07 100 MG Pantoprazole Sodium (Protonix Tab) 40 mg BID PO 11/30/17 21:00 12/30/17 20:59 12/05/17 19:35 40 MG Thiamine HCl (Vitamin B-1 Tab) 100 mg QAM PO 12/01/17 09:00 12/31/17 08:59 12/05/17 08:06 100 MG Metoprolol Succinate (Toprol Xl Tab) 25 mg QAM PO 12/01/17 09:00 12/31/17 08:59 12/05/17 08:06 25 MG Heparin Sodium (Porcine) (Heparin 10 Unit/ ml 5 ml Flush) 5 ml PRN PRN FLUSH 11/30/17 16:30 12/30/17 16:29 12/04/17 10:51 5 ML Magnesium Oxide (Mag-Ox Tab) 400 mg BID PO 12/01/17 21:00 12/31/17 20:59 12/05/17 19:35 400 MG Potassium/ Phosphorus/Sodium (Phospha 250 Neutral 155-852-130 Mg) 1 tab QID PO 12/02/17 13:00 01/01/18 12:59 12/05/17 19:34 1 TAB Oxycodone HCl (Roxicodone Soln) 5 mg Q4 PRN PO 12/03/17 08:45 12/17/17 08:44 12/04/17 02:27 5 MG Scopolamine (Transderm-Scop Patch) 1.5 mg Q72H TD 12/03/17 08:45 01/02/18 08:44 12/03/17 09:31 1.5 MG Miscellaneous (Remove Transderm-Scop Patch) 1 ea Q72H N/A 12/06/17 08:44 01/05/18 08:43 Miscellaneous Information (Check Scopolamine Patch Placement) 1 ea QS N/A 12/03/17 16:00 01/02/18 15:59 12/05/17 16:36 1 EA Fentanyl (Duragesic Patch) 25 mcg Q72H TD 12/04/17 09:45 12/18/17 09:44 12/04/17 10:12 25 MCG Miscellaneous (Fentanyl Patch Remove & Waste) 1 ea Q3D@0944 N/A 12/04/17 09:44 01/03/18 09:43 12/04/17 10:17 1 EA Miscellaneous Information (Check Fentanyl Patch Placement) 1 ea QS N/A 12/04/17 16:00 01/03/18 15:59 12/05/17 16:36 1 EA Miscellaneous (Fentanyl Patch Remove & Waste) 1 ea Q3D@0944 N/A 12/07/17 09:44 01/06/18 09:43 Fentanyl (Duragesic Patch) 100 mcg Q3D@0945 TD 12/04/17 09:45 12/18/17 09:44 12/04/17 10:12 100 MCG Miscellaneous Information (Check Fentanyl Patch Placement) 1 ea QS N/A 12/04/17 16:00 01/03/18 15:59 12/05/17 16:36 1 EA Torsemide (Demadex Tab) 20 mg DAILY PO 12/05/17 09:00 12/29/17 09:29 12/05/17 08:06 20 MG Insulin Glargine (Lantus Solostar Pen) BSG UNITS LANTUS... BID SC 12/05/17 21:00 01/04/18 20:59 12/05/17 20:32 10 UNITS Insulin Aspart (novoLOG ASPART) SLIDING SCALE G... ACHS SC 12/05/17 11:00 01/04/18 10:59 12/05/17 20:31 2 UNITS Glucose (Glucose 40% Gel) 15-30 GRAMS 15 GRAMS... UD PRN PO 12/05/17 10:45 01/04/18 10:44 Glucose (Glucose Chew Tab) 4-8 Tablets 4 Tabl... UD PRN PO 12/05/17 10:45 01/04/18 10:44 Dextrose (Dextrose 50% 50ML Syringe) 25-50ML OF 50% DW IV FOR... UD PRN IV 12/05/17 10:45 01/04/18 10:44 Glucagon (Glucagon Inj) 1 mg UD PRN SQ 12/05/17 10:45 01/04/18 10:44
[2017-12-05 23:45] VITALS: BP 106/65; PULSE 99; TEMP 36.7; O2SAT 96
[2017-12-06] VITALS (7 sets, daily range): BP systolic 96–110; BP diastolic 51–72; PULSE 93–116; TEMP 36.3–36.6; O2SAT 95–100
[2017-12-06] MEDS: ONDANSETRON INJ 2 MG/ML 2 ML VIAL IV SCH ×5 (00:25→23:27)
[2017-12-06] MEDS: CHECK SCOPOLAMINE PATCH PLACEMENT SCH ×4 (00:27→23:35)
[2017-12-06] MEDS: CHECK FENTANYL PATCH PLACEMENT SCH ×8 (00:27→23:35)
[2017-12-06] MEDS: HYDROmorphone INJ 0.5 MG/0.5 ML SYR IV PRN ×2 (01:59→23:30)
[2017-12-06 06:17] LABS: HEMATOCRIT 21.1 % (42-52); HEMOGLOBIN 7.1 g/dL (14.0-18.0); IG# 0.02 K/uL (0.00-0.02); LYMPH % 11.8 %; LYMPH ABS # 0.25 K/uL (1.2-3.4); MEAN CELL VOLUME 86.8 fL (80-100); MEAN CORPUSCULAR HEMOGLOBIN 29.2 pg (25-34); MEAN CORPUSCULAR HGB CONC 33.6 g/dl (32-36); MEAN PLATELET VOLUME 11.3 fL (7.4-10.4); MONO % 12.3 %; MONO ABS # 0.26 K/uL (0.11-0.59); NEUT ABS # 1.59 K/uL (1.4-6.5); NUCLEATED RED BLOOD CELL ABS 0.02 K/uL (0-0); PLATELET COUNT 122 K/uL (130-400); RED CELL DISTRIBUTION WIDTH CV 16.1 % (11.5-14.5); RED CELL DISTRIBUTION WIDTH SD 46.7 fL (36.4-46.3); WHITE BLOOD COUNT 2.12 K/uL (4.8-10.8)
[2017-12-06 06:53] LABS: ALBUMIN 2.8 gm/dl (3.4-5.0); CREATININE 1.17 mg/dl (0.60-1.40); POTASSIUM 4.6 mmol/L (3.5-5.1)
[2017-12-06 06:55] LABS: TOTAL PROTEIN 6.4 gm/dl (6.4-8.2)
[2017-12-06] MEDS: THIAMINE HCL 100 MG TAB PO SCH (09:23)
[2017-12-06] MEDS: PANTOprazole SOD 40 MG TAB PO SCH ×2 (09:24→20:01)
[2017-12-06] MEDS: TORSEMIDE 20 MG TAB PO SCH (09:24)
[2017-12-06] MEDS: MAGNESIUM OXIDE 400 MG TAB PO SCH ×2 (09:24→20:00)
[2017-12-06] MEDS: FERROUS SULFATE 325 MG TAB PO SCH (09:25)
[2017-12-06] MEDS: CHOLECALCIFEROL 1000 INTER.UNIT TAB PO SCH (09:25)
[2017-12-06] MEDS: POT PHOSPHATE MONOBASIC W/ SOD TAB PO SCH ×4 (09:25→20:00)
[2017-12-06] MEDS: METOPROLOL SUCC 25MG EXT REL TAB PO SCH (09:25)
[2017-12-06] MEDS: POLYETHYLENE (MIRALAX) 17 GM PACK PO SCH ×2 (09:26→20:01)
[2017-12-06] MEDS: SCOPOLAMINE 1.5 MG TDSY TD SCH (09:26)
[2017-12-06] MEDS: FLUCONAZOLE 100 MG TAB PO SCH (09:26)
[2017-12-06] MEDS: INSULIN ASPART 100 UNITS/ML 3 ML PEN SC SCH ×4 (09:33→20:29)
[2017-12-06] MEDS: INSULIN GLARGINE SOLOSTAR 100 UNITS/ML 3 ML PEN SC SCH ×2 (09:36→20:30)
--- NOTE | 2017-12-06 13:07 | Hematology/Oncology Prog Note ---
Hematology/Onc Progress Note Date of Service Dec 06, 2017. Diagnoses Small Cell lung carcinoma Esophagitis Pancytopenia secondary to chemotherapy and radiation Medications Medications Administered Medications (Trade) Dose Ordered Sig/Elizabeth Route Start Time Stop Time Status Last Admin Dose Admin Sodium Chloride 2,000 ml @ 999 mls/hr Q2H1M STAT IV 11/24/17 14:02 11/24/17 16:07 DC 11/24/17 14:21 999 MLS/HR Ondansetron HCl (Zofran Inj) 4 mg NOW STAT IV 11/24/17 14:02 11/24/17 14:04 DC 11/24/17 14:21 4 MG Morphine Sulfate (MoRPHine SULFATE INJ) 6 mg NOW STAT IV 11/24/17 14:02 11/24/17 14:04 DC 11/24/17 14:22 6 MG Ondansetron HCl (Zofran Inj) 4 mg Q6H PRN IV 11/24/17 17:00 11/25/17 16:37 DC 11/25/17 07:46 4 MG Cyclobenzaprine HCl (Flexeril Tab) 10 mg HS PRN PO 11/24/17 17:15 12/24/17 17:14 12/04/17 09:57 10 MG Levothyroxine Sodium (Synthroid Tab) 112 mcg DAILYBB PO 11/25/17 06:30 11/25/17 16:37 DC 11/25/17 07:57 112 MCG Oxycodone HCl (Roxicodone Immediate Rel Tab) 5 mg Q4H PRN PO 11/24/17 17:15 11/26/17 12:31 DC 11/26/17 05:06 5 MG Apixaban (Eliquis Tab) 5 mg BID PO 11/24/17 20:00 11/26/17 12:31 DC 11/24/17 19:49 5 MG Cholecalciferol (Vitamin D Tab) 2,000 inter.unit DAILY PO 11/25/17 08:00 12/25/17 08:59 12/06/17 09:25 2,000 INTER.UNIT Ferrous Sulfate (Feosol Tab) 325 mg DAILY PO 11/25/17 08:00 12/25/17 08:59 12/06/17 09:25 325 MG Lactobacillus Acidophilus (Lactinex Granules Pack) 1 gm BID PEG 11/24/17 20:00 11/24/17 20:30 DC 11/24/17 19:49 1 GM Magnesium Oxide (Mag-Ox Tab) 400 mg Q2D@0900 PO 11/25/17 09:00 12/01/17 09:45 DC 12/01/17 08:28 400 MG Filgrastim (Neupogen Sq) 480 mcg DAILY SC 11/25/17 08:00 11/26/17 12:00 DC 11/26/17 10:19 480 MCG Filgrastim (Neupogen Sq) 480 mcg 1830 ONCE SC 11/24/17 18:30 11/24/17 18:31 DC 11/24/17 20:50 480 MCG Sodium Chloride 1,000 ml @ 100 mls/hr Q10H IV 11/24/17 17:15 11/27/17 10:20 DC 11/27/17 05:58 100 MLS/HR Lactobacillus Acidophilus (Floranex Tab) 4 tab BID PO 11/25/17 08:00 11/25/17 16:43 DC 11/25/17 07:57 4 TAB Hydromorphone HCl (Dilaudid Inj) 0.5 mg Q3H PRN IV 11/24/17 21:15 12/08/17 21:14 12/06/17 01:59 0.5 MG Hydromorphone HCl (Dilaudid Inj) 0.5 mg 2112 ONCE IV 11/24/17 21:12 11/24/17 21:18 DC 11/24/17 21:28 0.5 MG Magnesium Sulfate 4 gm/Sodium Phosphate 15 mmol/ Sodium Chloride 513 ml @ 128 mls/hr 0900 ONCE IV 11/25/17 09:00 11/25/17 13:00 DC 11/25/17 09:34 128 MLS/HR Bisacodyl (Dulcolax Supp) 10 mg STK-MED ONCE .ROUTE 11/25/17 10:21 11/25/17 10:22 DC 11/25/17 10:25 10 MG Ondansetron HCl (Zofran Inj) 4 mg Q6H IV 11/25/17 17:00 12/24/17 16:59 12/06/17 05:38 4 MG Thiamine HCl 100 mg/Syringe 10 ml @ 2 mls/min BID IV 11/25/17 20:00 11/30/17 09:32 DC 11/30/17 09:04 2 MLS/MIN Acetaminophen/ Hydrocodone Bitart (Lortab Elixir) 15 ml TIDM PRN PO 11/25/17 16:30 12/03/17 07:58 DC 12/03/17 05:44 15 ML Lidocaine HCl (Viscous Lidocaine 2% Soln) 20 ml Q6H PRN MT 11/25/17 16:30 12/25/17 16:29 11/26/17 13:39 20 ML Sodium Chloride 1,000 ml @ 999 mls/hr Q1H1M IV 11/25/17 16:30 11/25/17 17:30 DC 11/25/17 16:52 999 MLS/HR Polyethylene (Miralax Powder Packet) 17 gm BID PO 11/25/17 20:00 12/25/17 19:59 12/06/17 09:26 17 GM Cefepime HCl 2000 mg/Syringe 20 ml @ 5 mls/min Q8H IV 11/25/17 17:30 11/28/17 08:40 DC 11/28/17 02:00 5 MLS/MIN Vancomycin HCl 2500 mg/Sodium Chloride 550 ml @ 200 mls/hr TODAY@1745 ONCE IV 11/25/17 17:45 11/25/17 20:29 DC 11/25/17 19:13 200 MLS/HR Metoprolol Tartrate (Lopressor Iv) 5 mg Q6 IV. 11/25/17 18:30 11/30/17 12:26 DC 11/30/17 06:18 5 MG Vancomycin HCl 1500 mg/Sodium Chloride 530 ml @ 200 mls/hr Q12H IV 11/26/17 06:00 11/27/17 10:51 DC 11/27/17 05:57 200 MLS/HR Levothyroxine Sodium 25 mcg/ Syringe 1.25 ml @ 2 mls/min DAILY@09 IV 11/26/17 09:00 11/30/17 09:25 DC 11/29/17 09:21 2 MLS/MIN Sodium Chloride 1,000 ml @ 250 mls/hr Q4H IV 11/25/17 21:00 11/26/17 00:59 DC 11/25/17 21:07 250 MLS/HR Calcium Gluconate 2000 mg/Sodium Chloride 70 ml @ 70 mls/hr NOW ONCE IV 11/26/17 09:00 11/26/17 09:59 DC 11/26/17 09:11 70 MLS/HR Sodium Phosphate 30 mmol/Sodium Chloride 510 ml @ 88 mls/hr NOW ONCE IV 11/26/17 09:00 11/26/17 14:47 DC 11/26/17 10:16 88 MLS/HR Fentanyl (Duragesic Patch) 25 mcg Q3D@1000 TD 11/26/17 10:00 11/28/17 12:03 DC 11/26/17 10:22 25 MCG Miscellaneous Information (Check Fentanyl Patch Placement) 1 ea QS N/A 11/26/17 16:00 11/28/17 12:03 DC 11/28/17 07:18 1 EA Diphenhydramine HCl (Benadryl Inj) 25 mg ONE ONCE IV 11/26/17 09:45 11/26/17 09:46 DC 11/26/17 13:37 25 MG Acetaminophen 650 mg/Empty Bag 65 ml @ 260 mls/hr ONE ONCE IV 11/26/17 10:00 11/26/17 10:14 DC 11/26/17 13:36 260 MLS/HR Hydromorphone HCl (Dilaudid Business Operations Analyst) 25 mg PRN PRN IV 11/26/17 12:45 12/04/17 08:57 DC 12/02/17 12:33 25 MG Sodium Chloride 1,000 ml @ 15 mls/hr Q24H IV 11/26/17 12:31 12/04/17 08:57 DC 12/03/17 15:05 15 MLS/HR Fluconazole/ Sodium Chloride 200 mg/Prmx 100 ml @ 100 mls/hr TODAY@1600,1700 IV 11/26/17 16:00 11/26/17 17:59 DC 11/26/17 16:42 100 MLS/HR Fluconazole/ Sodium Chloride 200 mg/Prmx 100 ml @ 100 mls/hr DAILY@1600 IV 11/27/17 16:00 11/30/17 09:32 DC 11/29/17 16:14 100 MLS/HR Pantoprazole Sodium 40 mg/ Syringe 10 ml @ 5 mls/min DAILY@21 IV 11/27/17 21:00 11/30/17 09:32 DC 11/30/17 09:04 5 MLS/MIN Potassium Phosphate 15 mmol/ Sodium Chloride 255 ml @ 88 mls/hr TODAY@1030 ONCE IV 11/27/17 10:30 11/27/17 13:23 DC 11/27/17 11:50 88 MLS/HR Vancomycin HCl 1500 mg/Sodium Chloride 530 ml @ 200 mls/hr Q10H IV 11/27/17 16:00 11/28/17 08:40 DC 11/28/17 02:11 200 MLS/HR Sodium Chloride ([place] Nasal [place]) 225 sprays STK-MED ONCE .ROUTE 11/27/17 18:11 11/27/17 18:12 DC 11/28/17 21:39 225 SPRAYS Sodium Phosphate 15 mmol/Sodium Chloride 255 ml @ 88 mls/hr TODAY@0745 ONCE IV 11/28/17 07:45 11/28/17 10:38 DC 11/28/17 08:41 88 MLS/HR Fentanyl (Duragesic Patch) 50 mcg Q3D@1230 TD 11/28/17 12:30 11/29/17 08:28 DC 11/28/17 12:17 50 MCG Miscellaneous (Fentanyl Patch Remove & Waste) 1 ea Q3D@1229 N/A 11/28/17 12:29 11/29/17 09:12 DC 11/28/17 12:20 1 EA Miscellaneous Information (Check Fentanyl Patch Placement) 1 ea QS N/A 11/28/17 16:00 11/29/17 08:28 DC 11/29/17 00:34 1 EA Vancomycin HCl 2500 mg/Sodium Chloride 550 ml @ 200 mls/hr NOW STAT IV 11/29/17 02:00 11/29/17 04:44 DC 11/29/17 02:37 200 MLS/HR Magnesium Sulfate 1 gm/Prmx 100 ml @ 100 mls/hr NOW STAT IV 11/29/17 07:47 11/29/17 08:46 DC 11/29/17 09:21 100 MLS/HR Sodium Phosphate 21 mmol/Sodium Chloride 507 ml @ 144.857 mls/hr NOW STAT IV 11/29/17 07:49 11/29/17 11:18 DC 11/29/17 09:21 144.857 MLS/HR Fentanyl (Duragesic Patch) 75 mcg Q72H TD 11/29/17 09:30 12/04/17 09:36 DC 12/02/17 08:18 75 MCG Miscellaneous (Fentanyl Patch Remove & Waste) 1 ea Q3D N/A 12/02/17 09:29 12/04/17 09:33 DC 12/02/17 08:18 1 EA Miscellaneous Information (Check Fentanyl Patch Placement) 1 ea QS N/A 11/29/17 16:00 12/04/17 09:34 DC 12/04/17 08:11 1 EA Torsemide (Demadex Tab) 20 mg BID PO 11/29/17 09:30 12/04/17 13:49 DC 12/03/17 21:21 20 MG Miscellaneous (Fentanyl Patch Remove & Waste) 1 ea 0940 ONCE N/A 11/29/17 09:40 11/29/17 09:41 DC 11/29/17 09:40 1 EA Vancomycin HCl 1500 mg/Sodium Chloride 530 ml @ 200 mls/hr Q10H IV 11/29/17 12:00 11/30/17 12:27 DC 11/30/17 08:45 200 MLS/HR Potassium Chloride 10 meq/ Prmx 100 ml @ 100 mls/hr Q1H IV 11/30/17 08:30 11/30/17 10:29 DC 11/30/17 16:19 100 MLS/HR Magnesium Sulfate 1 gm/Prmx 100 ml @ 100 mls/hr Q1H IV 11/30/17 08:30 11/30/17 10:29 DC 11/30/17 16:19 100 MLS/HR Potassium Chloride (Klor-Con Tab) 60 meq BID PO 11/30/17 09:00 12/01/17 15:30 DC 12/01/17 08:27 60 MEQ Potassium Phosphate 24 mmol/ Sodium Chloride 508 ml @ 88 mls/hr TODAY@0845 ONCE IV 11/30/17 08:45 11/30/17 14:31 DC 11/30/17 09:04 88 MLS/HR Pravastatin Sodium (Pravachol Tab) 80 mg HS PO 11/30/17 21:00 12/30/17 20:59 12/05/17 19:35 80 MG Fluconazole (Diflucan Tab) 100 mg QAM PO 12/01/17 09:00 12/11/17 08:59 12/06/17 09:26 100 MG Pantoprazole Sodium (Protonix Tab) 40 mg BID PO 11/30/17 21:00 12/30/17 20:59 12/06/17 09:24 40 MG Thiamine HCl (Vitamin B-1 Tab) 100 mg QAM PO 12/01/17 09:00 12/31/17 08:59 12/06/17 09:23 100 MG Metoprolol Succinate (Toprol Xl Tab) 25 mg QAM PO 12/01/17 09:00 12/31/17 08:59 12/06/17 09:25 25 MG Heparin Sodium (Porcine) (Heparin 10 Unit/ ml 5 ml Flush) 5 ml PRN PRN FLUSH 11/30/17 16:30 12/30/17 16:29 12/04/17 10:51 5 ML Magnesium Sulfate 1 gm/Prmx 100 ml @ 100 mls/hr Q1H IV 12/01/17 10:00 12/01/17 11:59 DC 12/01/17 12:48 100 MLS/HR Magnesium Oxide (Mag-Ox Tab) 400 mg BID PO 12/01/17 21:00 12/31/17 20:59 12/06/17 09:24 400 MG Potassium Phosphate 21 mmol/ Sodium Chloride 507 ml @ 144 mls/hr 1200 ONCE IV 12/01/17 12:00 12/01/17 15:31 DC 12/01/17 10:41 144 MLS/HR Potassium Chloride (Klor-Con Pwd) 60 meq BID PO 12/01/17 21:00 12/03/17 08:14 DC 12/02/17 21:22 60 MEQ Potassium/ Phosphorus/Sodium (Phospha 250 Neutral 155-852-130 Mg) 1 tab QID PO 12/02/17 13:00 01/01/18 12:59 12/06/17 12:38 1 TAB Magnesium Sulfate 1 gm/Prmx 100 ml @ 100 mls/hr Q1H IV 12/02/17 10:00 12/02/17 13:59 DC 12/02/17 12:09 100 MLS/HR Magnesium Sulfate 1 gm/Prmx 100 ml @ 100 mls/hr NOW STAT IV 12/03/17 07:25 12/03/17 08:24 DC 12/03/17 07:51 100 MLS/HR Potassium Chloride (Klor-Con Tab) 60 meq BID PO 12/03/17 09:00 12/05/17 10:32 DC 12/04/17 20:10 60 MEQ Fentanyl (Duragesic Patch) 25 mcg Q72H TD 12/03/17 08:45 12/04/17 09:36 DC 12/03/17 09:30 25 MCG Miscellaneous Information (Check Fentanyl Patch Placement) 1 ea QS N/A 12/03/17 16:00 12/04/17 09:34 DC 12/04/17 08:11 1 EA Oxycodone HCl (Roxicodone Soln) 5 mg Q4 PRN PO 12/03/17 08:45 12/17/17 08:44 12/04/17 02:27 5 MG Scopolamine (Transderm-Scop Patch) 1.5 mg Q72H TD 12/03/17 08:45 01/02/18 08:44 12/06/17 09:26 1.5 MG Miscellaneous (Remove Transderm-Scop Patch) 1 ea Q72H N/A 12/06/17 08:44 01/05/18 08:43 12/06/17 08:44 1 EA Miscellaneous Information (Check Scopolamine Patch Placement) 1 ea QS N/A 12/03/17 16:00 01/02/18 15:59 12/06/17 08:00 1 EA Ondansetron HCl (Zofran Inj) 4 mg NOW ONCE IV 12/04/17 08:45 12/04/17 08:46 DC 12/04/17 08:56 4 MG Fentanyl (Duragesic Patch) 25 mcg Q72H TD 12/04/17 09:45 12/18/17 09:44 12/04/17 10:12 25 MCG Miscellaneous (Fentanyl Patch Remove & Waste) 1 ea Q3D@0944 N/A 12/04/17 09:44 01/03/18 09:43 12/04/17 10:17 1 EA Miscellaneous Information (Check Fentanyl Patch Placement) 1 ea QS N/A 12/04/17 16:00 01/03/18 15:59 12/06/17 08:00 1 EA Fentanyl (Duragesic Patch) 100 mcg Q3D@0945 TD 12/04/17 09:45 12/18/17 09:44 12/04/17 10:12 100 MCG Miscellaneous Information (Check Fentanyl Patch Placement) 1 ea QS N/A 12/04/17 16:00 01/03/18 15:59 12/06/17 08:00 1 EA Methylprednisolone Sodium Succinate 20 mg/Syringe 0.32 ml @ 1.5 mls/min NOW ONCE IV 12/04/17 14:00 12/04/17 14:01 DC 12/04/17 14:17 1.5 MLS/MIN Torsemide (Demadex Tab) 20 mg DAILY PO 12/05/17 09:00 12/29/17 09:29 12/06/17 09:24 20 MG Insulin Glargine (Lantus Solostar Pen) BSG UNITS LANTUS... BID SC 12/05/17 21:00 01/04/18 20:59 12/06/17 09:36 8 UNITS Insulin Glargine (Lantus Solostar Pen) BSG UNITS LANTUS... 1028 ONCE SC 12/05/17 10:28 12/05/17 10:33 DC 12/05/17 13:41 8 UNITS Insulin Aspart (novoLOG ASPART) SLIDING SCALE G... ACHS SC 12/05/17 11:00 01/04/18 10:59 12/06/17 12:38 3 UNITS Methylprednisolone Sodium Succinate 20 mg/Syringe 0.32 ml @ 1.5 mls/min TODAY@1400 ONCE IV 12/05/17 14:00 12/05/17 14:01 DC 12/05/17 13:35 1.5 MLS/MIN Subjective Seems to be swallowing better remains afebrile. Hemoglobin is 7.1. Rest of his CBC is become more acceptable. His blood counts are now recovering Review of Systems: Constitutional: Negative for night sweats, or fever Eyes: Negative for event change of vision ENT: Negative for epistaxis, nasal discharge, sore throat, or deafness Cardiovascular: Negative for chest pain, palpitations, dizziness, diaphoresis Respiratory: Negative for new shortness of breath,hemoptysis, or purulent cough Gastrointestinal: Negative for diarrhea, hematemesis, melena, no nausea vomiting dysphagia continues but seems less so Integumentary (skin): Negative for rash or jaundice discoloration Genitourinary: Negative for urinary frequency, hematuria, or dysuria Neurological: Negative for weakness, seizure activity, headache, or dizziness Lymphatic/Hematologic: Negative for petechiae, bleeding or new adenopathy Musculoskeletal: Negative for new joint or back pain Allergic/Immunologic: Negative for unusual rash or pruritis. Vital Signs Vital Signs Past 12 Hours Date Time Temp Pulse Resp B/P (MAP) Pulse Ox O2 Delivery O2 Flow Rate FiO2 12/06/17 12:15 36.3 93 16 105/64 (78) 100 Room Air 12/06/17 08:00 Room Air 12/06/17 07:57 36.5 100 16 107/62 (77) 100 Room Air 12/06/17 04:00 Room Air 12/06/17 03:40 36.4 116 19 105/63 (77) 98 Physical Exam Constitutional: vitals are stable. Alopecic delightful gentleman Eyes: Eyes are DANG EOMI without conjuctival erythema or icterus. ENT: External examination was negative for masses. Neck: Negative for masses or palpable thyromegaly Respiratory: Lung sounds were generally clear bilaterally Cardiovascular: Heart was RRR without significant murmur, gallops aoe rubs Gastrointestinal: No palpable hepatic or splenomegaly. The abdomen was soft with normal bowel sounds. Lymphatic system: there was no palpable peripheral lymphadenopathy Musculoskeletal System: The musculoskeletal system seemed concordant with age. Skin: The skin was negative for jaundice. Neurologic exam: The exam was negative for any focal findings. Deep tendon reflexes were equal and symmetrical. Psychiatric exam: Was essentially negative with normal mood and effect. Extremities: Negative for edema erythema Laboratory Last 24 Hours Test 12/05/17 15:53 12/05/17 20:03 12/06/17 05:51 12/06/17 06:47 Bedside Glucose 166 mg/dl 216 mg/dl 142 mg/dl White Blood Count 2.12 K/uL Red Blood Count 2.43 M/uL Hemoglobin 7.1 g/dL Hematocrit 21.1 % Mean Corpuscular Volume 86.8 fL Mean Corpuscular Hemoglobin 29.2 pg Mean Corpuscular Hemoglobin Concent 33.6 g/dl Platelet Count 122 K/uL Mean Platelet Volume 11.3 fL Neutrophils (%) (Auto) 75.0 % Lymphocytes (%) (Auto) 11.8 % Monocytes (%) (Auto) 12.3 % Eosinophils (%) (Auto) 0.0 % Basophils (%) (Auto) 0.0 % Neutrophils # (Auto) 1.59 K/uL Lymphocytes # (Auto) 0.25 K/uL Monocytes # (Auto) 0.26 K/uL Eosinophils # (Auto) 0.00 K/uL Basophils # (Auto) 0.00 K/uL RDW Standard Deviation 46.7 fL RDW Coefficient of Variation 16.1 % Immature Granulocyte % (Auto) 0.9 % Immature Granulocyte # (Auto) 0.02 K/uL Nucleated RBC Absolute Count (auto) 0.02 K/uL Nucleated Red Blood Cells % 1.0 % Large Platelets 2+ Poikilocytosis PRESENT Anisocytosis PRESENT Sodium Level 131 mmol/L Potassium Level 4.6 mmol/L Chloride Level 97 mmol/L Carbon Dioxide Level 28 mmol/L Anion Gap 6.0 mmol/L Blood Urea Nitrogen 14 mg/dl Creatinine 1.17 mg/dl Est Creatinine Clear Calc Drug Dose 82.4 ml/min Estimated GFR () 80.3 Estimated GFR (Non- 69.3 BUN/Creatinine Ratio 11.7 Random Glucose 130 mg/dl Calcium Level 9.0 mg/dl Phosphorus Level 4.0 mg/dl Magnesium Level 1.7 mg/dl Total Bilirubin 1.0 mg/dl Aspartate Amino Transf (AST/SGOT) 11 U/L Alanine Aminotransferase (ALT/SGPT) 12 U/L Alkaline Phosphatase 56 U/L Total Protein 6.4 gm/dl Albumin 2.8 gm/dl Globulin 3.6 gm/dl Albumin/Globulin Ratio 0.8 Test 12/06/17 11:01 Bedside Glucose 153 mg/dl Assessment & Plan Seems to be doing better. He may need transfused prior to discharge. Remains afebrile. Currently he is scheduled actually to get chemotherapy again next week but obviously this will have to be placed on hold. For now we will read gather with him as an outpatient perhaps next Sunday. We will sign off as a service for please not hesitate to reconsult if necessary
[2017-12-06] MEDS: PRAVASTATIN SOD 40 MG TAB PO SCH (20:01)
--- NOTE | 2017-12-06 21:00 | Progress Note ---
Medicine Progress Note Date & Time of Visit: Dec 06, 2017 at 14:20 . Subjective CC: Follow-up visit for dysphagia and other problems. HPI: Tolerating full liquids. No vomiting x 2 days. No melena or hematochezia. Right chest wall pain improved. Left ankle pain improved. ROS: General- no fever, no chills Resp- occasional cough; no shortness of breath Cardiac- no angina, persistent edema GI- as noted above in HPI - no dysuria . Objective Last 8 Hrs Date Time Temp Pulse Resp B/P (MAP) Pulse Ox O2 Delivery O2 Flow Rate FiO2 12/06/17 20:10 99 Room Air 0.0 12/06/17 19:07 36.6 110 20 96/59 (71) 99 Room Air 12/06/17 16:10 Room Air 12/06/17 15:46 36.4 93 18 102/51 (68) 99 Room Air Physical Exam: General- chronically-ill appearing, no acute distress Head- alopecia Eyes- anicteric Lungs- few scattered rhonchi Cardiovascular- irregular; 1-2+ pretibial edema Abdomen- + BS, slightly distended, soft, nontender Extremities- no cyanosis; erythema and tenderness left medial malleolus resolved Neuro- alert, oriented Skin- warm & dry . Laboratory Results: Last 24 Hours Test 12/06/17 05:51 12/06/17 06:47 12/06/17 11:01 12/06/17 16:03 White Blood Count 2.12 K/uL Red Blood Count 2.43 M/uL Hemoglobin 7.1 g/dL Hematocrit 21.1 % Mean Corpuscular Volume 86.8 fL Mean Corpuscular Hemoglobin 29.2 pg Mean Corpuscular Hemoglobin Concent 33.6 g/dl Platelet Count 122 K/uL Mean Platelet Volume 11.3 fL Neutrophils (%) (Auto) 75.0 % Lymphocytes (%) (Auto) 11.8 % Monocytes (%) (Auto) 12.3 % Eosinophils (%) (Auto) 0.0 % Basophils (%) (Auto) 0.0 % Neutrophils # (Auto) 1.59 K/uL Lymphocytes # (Auto) 0.25 K/uL Monocytes # (Auto) 0.26 K/uL Eosinophils # (Auto) 0.00 K/uL Basophils # (Auto) 0.00 K/uL RDW Standard Deviation 46.7 fL RDW Coefficient of Variation 16.1 % Immature Granulocyte % (Auto) 0.9 % Immature Granulocyte # (Auto) 0.02 K/uL Nucleated RBC Absolute Count (auto) 0.02 K/uL Nucleated Red Blood Cells % 1.0 % Large Platelets 2+ Poikilocytosis PRESENT Anisocytosis PRESENT Sodium Level 131 mmol/L Potassium Level 4.6 mmol/L Chloride Level 97 mmol/L Carbon Dioxide Level 28 mmol/L Anion Gap 6.0 mmol/L Blood Urea Nitrogen 14 mg/dl Creatinine 1.17 mg/dl Est Creatinine Clear Calc Drug Dose 82.4 ml/min Estimated GFR () 80.3 Estimated GFR (Non- 69.3 BUN/Creatinine Ratio 11.7 Random Glucose 130 mg/dl Calcium Level 9.0 mg/dl Phosphorus Level 4.0 mg/dl Magnesium Level 1.7 mg/dl Total Bilirubin 1.0 mg/dl Aspartate Amino Transf (AST/SGOT) 11 U/L Alanine Aminotransferase (ALT/SGPT) 12 U/L Alkaline Phosphatase 56 U/L Total Protein 6.4 gm/dl Albumin 2.8 gm/dl Globulin 3.6 gm/dl Albumin/Globulin Ratio 0.8 Bedside Glucose 142 mg/dl 153 mg/dl 98 mg/dl Test 12/06/17 20:12 Bedside Glucose 130 mg/dl Assessment & Plan ODYNOPHAGIA / DYSPHAGIA Probably due to combination of extrinsic compression on esophagus and esophagitis (radiation and / or Candidal). Tolerating full liquid diet. Continue PPI, anti-emetics, fluconazole. Pt desperately wants to try some solid food again. Will try chopped / slippery diet with caution. SMALL CELL CARCINOMA OF LUNG Management per Medical Oncology. Pain Management assisting with cancer-associated pain. CORONARY ARTERY DISEASE No anginal symptoms; chest pain probably due to malignancy. Holding aspirin because of GI symptoms, recent hemoptysis, recent epistaxis, thrombocytopenia. Continue metoprolol. ATRIAL FIBRILLATION Chronic AF. Rate fast at times. Continue oral metoprolol with additional IV doses as necessary. Holding anticoagulants because of GI symptoms, recent hemoptysis, recent epistaxis, thrombocytopenia. CHF Chronic left ventricular diastolic heart failure. Decreased torsemide from BID to daily due to decreased oral intake. Follow. HYPERTENSION Continue metoprolol as noted above. CHRONIC HYPOXIC RESPIRATORY FAILURE Continue oxygen. SLEEP APNEA Does not tolerate CPAP. DM TYPE 2 Hgb A1C 6.3 10/18/17. Blood sugars tend due to acute illness, variable oral intake, steroids, etc. FBS this morning = 142. Lantus / NovoLog per protocol. LEFT ANKLE PAIN Suspect recurrent gout flare. Uric acid 8.6. IV methylprednisolone given x 2 doses with improvement. Transition to oral therapy with prednisone. PANCYTOPENIA Secondary to chemotherapy. Persistent anemia; leukopenia and thrombocytopenia improved. NUTRITION Diet / supplements as tolerated. Nutrition following. VTE PROPHYLAXIS No anticoagulants due to thrombocytopenia and GI symptoms. SCD's. Ambulate as able. DISPOSITION Patient hopes to be discharged to home. Primary care follow-up with Dr. James. Hematology / Oncology follow-up with Drs. Olsen and Lorenza. . Continued [facility] stay due to: multiple IV medications needed Discharge planning: uncertain Consultants: Medical Oncology Pain Management Palliative Care . Current Inpatient Medications: Current Inpatient Medications Medications (Trade) Dose Ordered Sig/Elizabeth Route Start Time Stop Time Status Last Admin Dose Admin Cyclobenzaprine HCl (Flexeril Tab) 10 mg HS PRN PO 11/24/17 17:15 12/24/17 17:14 12/04/17 09:57 10 MG Eszopiclone (Lunesta Tab) 1 mg HS PRN PO 11/24/17 17:15 12/24/17 17:14 Nitroglycerin (Nitrostat Tab) 0.4 mg UD PRN SL 11/24/17 17:15 12/24/17 17:14 Cholecalciferol (Vitamin D Tab) 2,000 inter.unit DAILY PO 11/25/17 08:00 12/25/17 08:59 12/06/17 09:25 2,000 INTER.UNIT Ferrous Sulfate (Feosol Tab) 325 mg DAILY PO 11/25/17 08:00 12/25/17 08:59 12/06/17 09:25 325 MG Hydromorphone HCl (Dilaudid Inj) 0.5 mg Q3H PRN IV 11/24/17 21:15 12/08/17 21:14 12/06/17 01:59 0.5 MG Ondansetron HCl (Zofran Inj) 4 mg Q6H IV 11/25/17 17:00 12/24/17 16:59 12/06/17 16:47 4 MG Lidocaine HCl (Viscous Lidocaine 2% Soln) 20 ml Q6H PRN MT 11/25/17 16:30 12/25/17 16:29 11/26/17 13:39 20 ML Polyethylene (Miralax Powder Packet) 17 gm BID PO 11/25/17 20:00 12/25/17 19:59 12/06/17 09:26 17 GM Pravastatin Sodium (Pravachol Tab) 80 mg HS PO 11/30/17 21:00 12/30/17 20:59 12/06/17 20:01 80 MG Fluconazole (Diflucan Tab) 100 mg QAM PO 12/01/17 09:00 12/11/17 08:59 12/06/17 09:26 100 MG Pantoprazole Sodium (Protonix Tab) 40 mg BID PO 11/30/17 21:00 12/30/17 20:59 12/06/17 20:01 40 MG Thiamine HCl (Vitamin B-1 Tab) 100 mg QAM PO 12/01/17 09:00 12/31/17 08:59 12/06/17 09:23 100 MG Metoprolol Succinate (Toprol Xl Tab) 25 mg QAM PO 12/01/17 09:00 12/31/17 08:59 12/06/17 09:25 25 MG Heparin Sodium (Porcine) (Heparin 10 Unit/ ml 5 ml Flush) 5 ml PRN PRN FLUSH 11/30/17 16:30 12/30/17 16:29 12/04/17 10:51 5 ML Magnesium Oxide (Mag-Ox Tab) 400 mg BID PO 12/01/17 21:00 12/31/17 20:59 12/06/17 20:00 400 MG Potassium/ Phosphorus/Sodium (Phospha 250 Neutral 155-852-130 Mg) 1 tab QID PO 12/02/17 13:00 01/01/18 12:59 12/06/17 20:00 1 TAB Oxycodone HCl (Roxicodone Soln) 5 mg Q4 PRN PO 12/03/17 08:45 12/17/17 08:44 12/04/17 02:27 5 MG Scopolamine (Transderm-Scop Patch) 1.5 mg Q72H TD 12/03/17 08:45 01/02/18 08:44 12/06/17 09:26 1.5 MG Miscellaneous (Remove Transderm-Scop Patch) 1 ea Q72H N/A 12/06/17 08:44 01/05/18 08:43 12/06/17 08:44 1 EA Miscellaneous Information (Check Scopolamine Patch Placement) 1 ea QS N/A 12/03/17 16:00 01/02/18 15:59 12/06/17 16:47 1 EA Fentanyl (Duragesic Patch) 25 mcg Q72H TD 12/04/17 09:45 12/18/17 09:44 12/04/17 10:12 25 MCG Miscellaneous (Fentanyl Patch Remove & Waste) 1 ea Q3D@0944 N/A 12/04/17 09:44 01/03/18 09:43 12/04/17 10:17 1 EA Miscellaneous Information (Check Fentanyl Patch Placement) 1 ea QS N/A 12/04/17 16:00 01/03/18 15:59 12/06/17 16:46 1 EA Miscellaneous (Fentanyl Patch Remove & Waste) 1 ea Q3D@0944 N/A 12/07/17 09:44 01/06/18 09:43 Fentanyl (Duragesic Patch) 100 mcg Q3D@0945 TD 12/04/17 09:45 12/18/17 09:44 12/04/17 10:12 100 MCG Miscellaneous Information (Check Fentanyl Patch Placement) 1 ea QS N/A 12/04/17 16:00 01/03/18 15:59 12/06/17 16:47 1 EA Torsemide (Demadex Tab) 20 mg DAILY PO 12/05/17 09:00 12/29/17 09:29 12/06/17 09:24 20 MG Insulin Glargine (Lantus Solostar Pen) BSG UNITS LANTUS... BID SC 12/05/17 21:00 01/04/18 20:59 12/06/17 20:30 6 UNITS Insulin Aspart (novoLOG ASPART) SLIDING SCALE G... ACHS SC 12/05/17 11:00 01/04/18 10:59 12/06/17 12:38 3 UNITS Glucose (Glucose 40% Gel) 15-30 GRAMS 15 GRAMS... UD PRN PO 12/05/17 10:45 01/04/18 10:44 Glucose (Glucose Chew Tab) 4-8 Tablets 4 Tabl... UD PRN PO 12/05/17 10:45 01/04/18 10:44 Dextrose (Dextrose 50% 50ML Syringe) 25-50ML OF 50% DW IV FOR... UD PRN IV 12/05/17 10:45 01/04/18 10:44 Glucagon (Glucagon Inj) 1 mg UD PRN SQ 12/05/17 10:45 01/04/18 10:44 Prednisone (PredniSONE TAB) 10 mg DAILY PO 12/07/17 09:00 01/06/18 08:59
[2017-12-06] MEDS ORDERED: HYDROmorphone INJ 1 MG/ML SYR ONE (23:23)
[2017-12-07] VITALS (7 sets, daily range): BP systolic 91–148; BP diastolic 56–84; PULSE 88–112; TEMP 36.3–36.6; O2SAT 95–100
[2017-12-07] MEDS: OXYCODONE HCL SOLN 5 MG/5 ML UDC PO PRN (01:46)
[2017-12-07] MEDS: ONDANSETRON INJ 2 MG/ML 2 ML VIAL IV SCH ×4 (06:06→23:24)
[2017-12-07 06:55] LABS: BASO % 0.8 %; BASO ABS # 0.02 K/uL (0-0.2); HEMATOCRIT 22.6 % (42-52); HEMOGLOBIN 7.6 g/dL (14.0-18.0); IG# 0.03 K/uL (0.00-0.02); LYMPH % 11.5 %; LYMPH ABS # 0.29 K/uL (1.2-3.4); MEAN CELL VOLUME 86.3 fL (80-100); MEAN CORPUSCULAR HGB CONC 33.6 g/dl (32-36); MEAN PLATELET VOLUME 10.6 fL (7.4-10.4); MONO % 15.5 %; MONO ABS # 0.39 K/uL (0.11-0.59); NEUT ABS # 1.79 K/uL (1.4-6.5); NUCLEATED RED BLOOD CELL ABS 0.03 K/uL (0-0); PLATELET COUNT 165 K/uL (130-400); RED CELL DISTRIBUTION WIDTH CV 16.4 % (11.5-14.5); RED CELL DISTRIBUTION WIDTH SD 46.2 fL (36.4-46.3); WHITE BLOOD COUNT 2.52 K/uL (4.8-10.8)
[2017-12-07 07:31] LABS: CALCIUM 9.2 mg/dl (8.5-10.1); CREATININE 1.15 mg/dl (0.60-1.40); POTASSIUM 4.1 mmol/L (3.5-5.1)
[2017-12-07] MEDS: CHECK FENTANYL PATCH PLACEMENT SCH ×4 (08:00→16:00)
[2017-12-07] MEDS: CHECK SCOPOLAMINE PATCH PLACEMENT SCH ×2 (08:00→17:02)
[2017-12-07] MEDS: FERROUS SULFATE 325 MG TAB PO SCH (08:31)
[2017-12-07] MEDS: CHOLECALCIFEROL 1000 INTER.UNIT TAB PO SCH (08:31)
[2017-12-07] MEDS: METOPROLOL SUCC 25MG EXT REL TAB PO SCH (08:32)
[2017-12-07] MEDS: THIAMINE HCL 100 MG TAB PO SCH (08:33)
[2017-12-07] MEDS: POT PHOSPHATE MONOBASIC W/ SOD TAB PO SCH ×4 (08:33→20:53)
[2017-12-07] MEDS: FLUCONAZOLE 100 MG TAB PO SCH (08:33)
[2017-12-07] MEDS: TORSEMIDE 20 MG TAB PO SCH (08:33)
[2017-12-07] MEDS: MAGNESIUM OXIDE 400 MG TAB PO SCH ×2 (08:33→20:53)
[2017-12-07] MEDS: PANTOprazole SOD 40 MG TAB PO SCH ×2 (08:34→20:54)
[2017-12-07] MEDS: POLYETHYLENE (MIRALAX) 17 GM PACK PO SCH ×2 (08:34→20:55)
[2017-12-07] MEDS: INSULIN ASPART 100 UNITS/ML 3 ML PEN SC SCH ×4 (08:45→20:55)
[2017-12-07] MEDS: INSULIN GLARGINE SOLOSTAR 100 UNITS/ML 3 ML PEN SC SCH ×2 (08:46→20:52)
[2017-12-07] MEDS: FENTANYL 100 MCG/HR TDSY TD SCH (08:56)
[2017-12-07] MEDS: FENTANYL 25 MCG/HR TDSY TD SCH (08:57)
[2017-12-07] MEDS: FENTANYL PATCH REMOVE & WASTE SCH ×2 (08:57→08:58)
[2017-12-07] MEDS: PRAVASTATIN SOD 40 MG TAB PO SCH (20:54)
--- NOTE | 2017-12-07 22:57 | Progress Note ---
Medicine Progress Note Date & Time of Visit: Dec 07, 2017 at 10:37 . Subjective CC: Follow-up visit for dysphagia and other problems. HPI: Doing fairly well. Trying solids without any significant dysphagia, odynophagia, nausea, vomiting. Occasional cough, no SOB. Chest pain under better control. Ankle pain better. ROS: General- no fever, no chills Resp- as noted above in HPI Cardiac- no angina; lower extremity edema stable GI- as noted above in HPI - no dysuria, no difficulty voiding . Objective Last 8 Hrs Date Time Temp Pulse Resp B/P (MAP) Pulse Ox O2 Delivery O2 Flow Rate FiO2 12/07/17 08:46 36.4 88 20 109/65 (80) 96 Room Air 12/07/17 08:45 36.4 88 20 109/65 (80) 96 Room Air 12/07/17 04:00 Room Air 12/07/17 03:30 36.5 109 17 91/56 (68) 95 Room Air Physical Exam: General- chronically-ill appearing, no acute distress Head- alopecia Eyes- anicteric Lungs- few scattered rhonchi Cardiovascular- irregular; 1-2+ pretibial edema Abdomen- + BS, slightly distended, soft, nontender Extremities- no cyanosis; erythema and tenderness left medial malleolus resolved Neuro- alert, oriented Skin- warm & dry . Laboratory Results: Last 24 Hours Test 12/06/17 11:01 12/06/17 16:03 12/06/17 20:12 12/07/17 06:37 Bedside Glucose 153 mg/dl 98 mg/dl 130 mg/dl 112 mg/dl Test 12/07/17 06:38 White Blood Count 2.52 K/uL Red Blood Count 2.62 M/uL Hemoglobin 7.6 g/dL Hematocrit 22.6 % Mean Corpuscular Volume 86.3 fL Mean Corpuscular Hemoglobin 29.0 pg Mean Corpuscular Hemoglobin Concent 33.6 g/dl Platelet Count 165 K/uL Mean Platelet Volume 10.6 fL Neutrophils (%) (Auto) 71.0 % Lymphocytes (%) (Auto) 11.5 % Monocytes (%) (Auto) 15.5 % Eosinophils (%) (Auto) 0.0 % Basophils (%) (Auto) 0.8 % Neutrophils # (Auto) 1.79 K/uL Lymphocytes # (Auto) 0.29 K/uL Monocytes # (Auto) 0.39 K/uL Eosinophils # (Auto) 0.00 K/uL Basophils # (Auto) 0.02 K/uL RDW Standard Deviation 46.2 fL RDW Coefficient of Variation 16.4 % Immature Granulocyte % (Auto) 1.2 % Immature Granulocyte # (Auto) 0.03 K/uL Nucleated RBC Absolute Count (auto) 0.03 K/uL Nucleated Red Blood Cells % 1.0 % Large Platelets 1+ Polychromasia 1+ Poikilocytosis PRESENT Basophilic Stippling 1+ Anisocytosis PRESENT Sodium Level 133 mmol/L Potassium Level 4.1 mmol/L Chloride Level 95 mmol/L Carbon Dioxide Level 30 mmol/L Anion Gap 9.0 mmol/L Blood Urea Nitrogen 15 mg/dl Creatinine 1.15 mg/dl Est Creatinine Clear Calc Drug Dose 83.8 ml/min Estimated GFR () 82.0 Estimated GFR (Non- 70.7 BUN/Creatinine Ratio 13.0 Random Glucose 101 mg/dl Calcium Level 9.2 mg/dl Magnesium Level 1.6 mg/dl Assessment & Plan ODYNOPHAGIA / DYSPHAGIA Probably due to combination of extrinsic compression on esophagus and esophagitis (radiation and / or Candidal). Tolerating full liquid diet. Continue PPI, anti-emetics, fluconazole. Diet advanced to chopped / slippery diet. SMALL CELL CARCINOMA OF LUNG Management per Medical Oncology. Pain Management assisting with cancer-associated pain with improvement of symptoms. CORONARY ARTERY DISEASE No anginal symptoms; chest pain probably due to malignancy. Holding aspirin because of GI symptoms, recent hemoptysis, recent epistaxis, thrombocytopenia. Continue metoprolol. ATRIAL FIBRILLATION Chronic AF. Rate fast at times. Continue oral metoprolol with additional IV doses as necessary. Holding anticoagulants because of GI symptoms, recent hemoptysis, recent epistaxis, thrombocytopenia. CHF Chronic left ventricular diastolic heart failure. Compensated. HYPERTENSION Continue metoprolol as noted above. CHRONIC HYPOXIC RESPIRATORY FAILURE Continue oxygen. SLEEP APNEA Does not tolerate CPAP. DM TYPE 2 Hgb A1C 6.3 10/18/17. Blood sugars tend due to acute illness, variable oral intake, steroids, etc. FBS this morning = 112. Lantus / NovoLog per protocol. LEFT ANKLE PAIN Suspect recurrent gout flare. Uric acid 8.6. IV methylprednisolone given x 2 doses with improvement. Transitioned to oral therapy with prednisone. PANCYTOPENIA Secondary to chemotherapy. Persistent anemia; leukopenia and thrombocytopenia improved. NUTRITION Diet / supplements as tolerated. Nutrition following. VTE PROPHYLAXIS No anticoagulants due to thrombocytopenia and GI symptoms. SCD's. Ambulate as able. DISPOSITION Patient hopes to be discharged to home where he lives alone. Primary care follow-up with Dr. James. Hematology / Oncology follow-up with Drs. Olsen and Lorenza. . Continued [facility] stay due to: multiple IV medications needed Discharge planning: uncertain Consultants: Medical Oncology Pain Management Palliative Care . Current Inpatient Medications: Current Inpatient Medications Medications (Trade) Dose Ordered Sig/Elizabeth Route Start Time Stop Time Status Last Admin Dose Admin Cyclobenzaprine HCl (Flexeril Tab) 10 mg HS PRN PO 11/24/17 17:15 12/24/17 17:14 12/04/17 09:57 10 MG Eszopiclone (Lunesta Tab) 1 mg HS PRN PO 11/24/17 17:15 12/24/17 17:14 Nitroglycerin (Nitrostat Tab) 0.4 mg UD PRN SL 11/24/17 17:15 12/24/17 17:14 Cholecalciferol (Vitamin D Tab) 2,000 inter.unit DAILY PO 11/25/17 08:00 12/25/17 08:59 12/07/17 08:31 2,000 INTER.UNIT Ferrous Sulfate (Feosol Tab) 325 mg DAILY PO 11/25/17 08:00 12/25/17 08:59 12/07/17 08:31 325 MG Hydromorphone HCl (Dilaudid Inj) 0.5 mg Q3H PRN IV 11/24/17 21:15 12/08/17 21:14 12/06/17 23:30 0.5 MG Ondansetron HCl (Zofran Inj) 4 mg Q6H IV 11/25/17 17:00 12/24/17 16:59 12/07/17 06:06 4 MG Lidocaine HCl (Viscous Lidocaine 2% Soln) 20 ml Q6H PRN MT 11/25/17 16:30 12/25/17 16:29 11/26/17 13:39 20 ML Polyethylene (Miralax Powder Packet) 17 gm BID PO 11/25/17 20:00 12/25/17 19:59 12/07/17 08:34 17 GM Pravastatin Sodium (Pravachol Tab) 80 mg HS PO 11/30/17 21:00 12/30/17 20:59 12/06/17 20:01 80 MG Fluconazole (Diflucan Tab) 100 mg QAM PO 12/01/17 09:00 12/11/17 08:59 12/07/17 08:33 100 MG Pantoprazole Sodium (Protonix Tab) 40 mg BID PO 11/30/17 21:00 12/30/17 20:59 12/07/17 08:34 40 MG Thiamine HCl (Vitamin B-1 Tab) 100 mg QAM PO 12/01/17 09:00 12/31/17 08:59 12/07/17 08:33 100 MG Metoprolol Succinate (Toprol Xl Tab) 25 mg QAM PO 12/01/17 09:00 12/31/17 08:59 12/07/17 08:32 25 MG Heparin Sodium (Porcine) (Heparin 10 Unit/ ml 5 ml Flush) 5 ml PRN PRN FLUSH 11/30/17 16:30 12/30/17 16:29 12/04/17 10:51 5 ML Magnesium Oxide (Mag-Ox Tab) 400 mg BID PO 12/01/17 21:00 12/31/17 20:59 12/07/17 08:33 400 MG Potassium/ Phosphorus/Sodium (Phospha 250 Neutral 155-852-130 Mg) 1 tab QID PO 12/02/17 13:00 01/01/18 12:59 12/07/17 08:33 1 TAB Oxycodone HCl (Roxicodone Soln) 5 mg Q4 PRN PO 12/03/17 08:45 12/17/17 08:44 12/07/17 01:46 5 MG Scopolamine (Transderm-Scop Patch) 1.5 mg Q72H TD 12/03/17 08:45 01/02/18 08:44 12/06/17 09:26 1.5 MG Miscellaneous (Remove Transderm-Scop Patch) 1 ea Q72H N/A 12/06/17 08:44 01/05/18 08:43 12/06/17 08:44 1 EA Miscellaneous Information (Check Scopolamine Patch Placement) 1 ea QS N/A 12/03/17 16:00 01/02/18 15:59 12/07/17 08:00 1 EA Fentanyl (Duragesic Patch) 25 mcg Q72H TD 12/04/17 09:45 12/18/17 09:44 12/07/17 08:57 25 MCG Miscellaneous (Fentanyl Patch Remove & Waste) 1 ea Q3D@0944 N/A 12/04/17 09:44 01/03/18 09:43 12/07/17 08:58 1 EA Miscellaneous Information (Check Fentanyl Patch Placement) 1 ea QS N/A 12/04/17 16:00 01/03/18 15:59 12/07/17 08:00 1 EA Miscellaneous (Fentanyl Patch Remove & Waste) 1 ea Q3D@0944 N/A 12/07/17 09:44 01/06/18 09:43 12/07/17 08:57 1 EA Fentanyl (Duragesic Patch) 100 mcg Q3D@0945 TD 12/04/17 09:45 12/18/17 09:44 12/07/17 08:56 100 MCG Miscellaneous Information (Check Fentanyl Patch Placement) 1 ea QS N/A 12/04/17 16:00 01/03/18 15:59 12/07/17 08:00 1 EA Torsemide (Demadex Tab) 20 mg DAILY PO 12/05/17 09:00 12/29/17 09:29 12/07/17 08:33 20 MG Insulin Glargine (Lantus Solostar Pen) BSG UNITS LANTUS... BID SC 12/05/17 21:00 01/04/18 20:59 12/07/17 08:46 6 UNITS Insulin Aspart (novoLOG ASPART) SLIDING SCALE G... ACHS SC 12/05/17 11:00 01/04/18 10:59 12/07/17 08:45 2 UNITS Glucose (Glucose 40% Gel) 15-30 GRAMS 15 GRAMS... UD PRN PO 12/05/17 10:45 01/04/18 10:44 Glucose (Glucose Chew Tab) 4-8 Tablets 4 Tabl... UD PRN PO 12/05/17 10:45 01/04/18 10:44 Dextrose (Dextrose 50% 50ML Syringe) 25-50ML OF 50% DW IV FOR... UD PRN IV 12/05/17 10:45 01/04/18 10:44 Glucagon (Glucagon Inj) 1 mg UD PRN SQ 12/05/17 10:45 01/04/18 10:44 Prednisone (PredniSONE TAB) 10 mg DAILY PO 12/07/17 09:00 01/06/18 08:59 12/07/17 08:34 10 MG
[2017-12-08 00:17] VITALS: BP 130/83; PULSE 104; TEMP 36.3; O2SAT 99
[2017-12-08] MEDS: HYDROmorphone INJ 0.5 MG/0.5 ML SYR IV PRN (00:22)
[2017-12-08 04:09] VITALS: BP 99/64; PULSE 104; PULSE 123; TEMP 36.4; O2SAT 97
[2017-12-08] MEDS: ONDANSETRON INJ 2 MG/ML 2 ML VIAL IV SCH ×4 (05:09→22:32)
[2017-12-08 07:57] VITALS: BP 105/68; PULSE 109; TEMP 36.6; O2SAT 99
[2017-12-08] MEDS: FERROUS SULFATE 325 MG TAB PO SCH (07:57)
[2017-12-08] MEDS: CHOLECALCIFEROL 1000 INTER.UNIT TAB PO SCH (07:57)
[2017-12-08] MEDS: FLUCONAZOLE 100 MG TAB PO SCH (07:57)
[2017-12-08] MEDS: POT PHOSPHATE MONOBASIC W/ SOD TAB PO SCH ×4 (07:57→21:12)
[2017-12-08] MEDS: PANTOprazole SOD 40 MG TAB PO SCH ×2 (07:57→21:13)
[2017-12-08] MEDS: MAGNESIUM OXIDE 400 MG TAB PO SCH (07:58)
[2017-12-08] MEDS: THIAMINE HCL 100 MG TAB PO SCH (07:58)
[2017-12-08] MEDS: METOPROLOL SUCC 25MG EXT REL TAB PO SCH (07:58)
[2017-12-08] MEDS: POLYETHYLENE (MIRALAX) 17 GM PACK PO SCH (07:59)
[2017-12-08] MEDS: CHECK SCOPOLAMINE PATCH PLACEMENT SCH ×3 (07:59→16:38)
[2017-12-08] MEDS: TORSEMIDE 20 MG TAB PO SCH (08:00)
[2017-12-08] MEDS: CHECK FENTANYL PATCH PLACEMENT SCH ×6 (08:07→16:38)
[2017-12-08] MEDS: INSULIN ASPART 100 UNITS/ML 3 ML PEN SC SCH ×4 (09:12→21:00)
[2017-12-08] MEDS: INSULIN GLARGINE SOLOSTAR 100 UNITS/ML 3 ML PEN SC SCH ×2 (09:13→21:17)
[2017-12-08] MEDS ORDERED: FENTANYL PATCH REMOVE & WASTE SCH (09:29)
[2017-12-08 11:45] VITALS: BP 133/85; PULSE 104; TEMP 36.3; O2SAT 100
[2017-12-08 15:40] VITALS: BP 107/74; PULSE 102; TEMP 36.4; O2SAT 95
[2017-12-08 19:15] VITALS: BP 90/59; PULSE 96; TEMP 36.5; O2SAT 97
--- NOTE | 2017-12-08 19:40 | Progress Note ---
Medicine Progress Note Date & Time of Visit: Dec 08, 2017 at 15:45 . Subjective CC: Follow-up visit for dysphagia and other problems. HPI: Tolerating solids without any significant dysphagia, odynophagia, nausea, vomiting. Occasional nonproductive cough, no SOB. Chest pain under better control. Ankle pain resolved. Ambulating. ROS: General- no fever, no chills Resp- as noted above in HPI Cardiac- no angina; lower extremity edema stable GI- no constipation; otherwise, as noted above in HPI - no dysuria, no difficulty voiding . Objective Last 8 Hrs Date Time Temp Pulse Resp B/P (MAP) Pulse Ox O2 Delivery O2 Flow Rate FiO2 12/08/17 15:40 36.4 102 18 107/74 (85) 95 Room Air 12/08/17 11:45 36.3 104 18 133/85 (101) 100 Room Air 12/08/17 08:00 Room Air 12/08/17 07:57 36.6 109 18 105/68 (80) 99 Room Air Physical Exam: General- chronically-ill appearing, sitting in chair, no acute distress Head- alopecia Eyes- anicteric Lungs- essentially clear Cardiovascular- irregular; no JVD; 1-2+ pretibial edema Abdomen- + BS, slightly distended, soft, nontender Extremities- no cyanosis; no calf tenderness; erythema and tenderness left medial malleolus resolved Neuro- alert, oriented Skin- warm & dry . Laboratory Results: Last 24 Hours Test 12/07/17 17:05 12/07/17 20:37 12/08/17 07:48 12/08/17 11:37 Bedside Glucose 134 mg/dl 149 mg/dl 95 mg/dl 105 mg/dl Assessment & Plan ODYNOPHAGIA / DYSPHAGIA Probably due to combination of extrinsic compression on esophagus and esophagitis (radiation and / or Candidal). Tolerating full liquid diet. Continue PPI, anti-emetics, fluconazole. Diet advanced to chopped / slippery diet. SMALL CELL CARCINOMA OF LUNG Management per Medical Oncology. Pain Management assisting with cancer-associated pain with improvement of symptoms. CORONARY ARTERY DISEASE No anginal symptoms; chest pain probably due to malignancy. Holding aspirin because of GI symptoms, recent hemoptysis, recent epistaxis, thrombocytopenia. Continue metoprolol. ATRIAL FIBRILLATION Chronic AF. Rate fast at times. Continue oral metoprolol with additional IV doses as necessary. Holding anticoagulants because of GI symptoms, recent hemoptysis, recent epistaxis, thrombocytopenia. CHF Chronic left ventricular diastolic heart failure. Compensated. HYPERTENSION Continue metoprolol as noted above. CHRONIC HYPOXIC RESPIRATORY FAILURE Continue oxygen. SLEEP APNEA Does not tolerate CPAP. DM TYPE 2 Hgb A1C 6.3 10/18/17. Blood sugars tend due to acute illness, variable oral intake, steroids, etc. FBS this morning = 95. Lantus / NovoLog per protocol. LEFT ANKLE PAIN Suspect recurrent gout flare. Uric acid 8.6. IV methylprednisolone given x 2 doses with improvement. Transitioned to oral therapy with prednisone. PANCYTOPENIA Secondary to chemotherapy. Persistent anemia; leukopenia and thrombocytopenia improved. NUTRITION Diet / supplements as tolerated. Nutrition following. VTE PROPHYLAXIS No anticoagulants due to thrombocytopenia and GI symptoms. SCD's. Ambulate as able. DISPOSITION Patient hopes to be discharged to home where he lives alone. Primary care follow-up with Dr. James. Hematology / Oncology follow-up with Drs. Olsen and Lorenza. . Continued [facility] stay due to: multiple IV medications needed Discharge planning: uncertain Consultants: Medical Oncology Pain Management Palliative Care . Current Inpatient Medications: Current Inpatient Medications Medications (Trade) Dose Ordered Sig/Elizabeth Route Start Time Stop Time Status Last Admin Dose Admin Cyclobenzaprine HCl (Flexeril Tab) 10 mg HS PRN PO 11/24/17 17:15 12/24/17 17:14 12/04/17 09:57 10 MG Eszopiclone (Lunesta Tab) 1 mg HS PRN PO 11/24/17 17:15 12/24/17 17:14 Nitroglycerin (Nitrostat Tab) 0.4 mg UD PRN SL 11/24/17 17:15 12/24/17 17:14 Cholecalciferol (Vitamin D Tab) 2,000 inter.unit DAILY PO 11/25/17 08:00 12/25/17 08:59 12/08/17 07:57 2,000 INTER.UNIT Ferrous Sulfate (Feosol Tab) 325 mg DAILY PO 11/25/17 08:00 12/25/17 08:59 12/08/17 07:57 325 MG Hydromorphone HCl (Dilaudid Inj) 0.5 mg Q3H PRN IV 11/24/17 21:15 12/08/17 21:14 12/08/17 00:22 0.5 MG Ondansetron HCl (Zofran Inj) 4 mg Q6H IV 11/25/17 17:00 12/24/17 16:59 12/08/17 11:10 4 MG Lidocaine HCl (Viscous Lidocaine 2% Soln) 20 ml Q6H PRN MT 11/25/17 16:30 12/25/17 16:29 11/26/17 13:39 20 ML Polyethylene (Miralax Powder Packet) 17 gm BID PO 11/25/17 20:00 12/25/17 19:59 12/08/17 07:59 17 GM Pravastatin Sodium (Pravachol Tab) 80 mg HS PO 11/30/17 21:00 12/30/17 20:59 12/07/17 20:54 80 MG Fluconazole (Diflucan Tab) 100 mg QAM PO 12/01/17 09:00 12/11/17 08:59 12/08/17 07:57 100 MG Pantoprazole Sodium (Protonix Tab) 40 mg BID PO 11/30/17 21:00 12/30/17 20:59 12/08/17 07:57 40 MG Thiamine HCl (Vitamin B-1 Tab) 100 mg QAM PO 12/01/17 09:00 12/31/17 08:59 12/08/17 07:58 100 MG Metoprolol Succinate (Toprol Xl Tab) 25 mg QAM PO 12/01/17 09:00 12/31/17 08:59 12/08/17 07:58 25 MG Heparin Sodium (Porcine) (Heparin 10 Unit/ ml 5 ml Flush) 5 ml PRN PRN FLUSH 11/30/17 16:30 12/30/17 16:29 12/08/17 11:10 5 ML Potassium/ Phosphorus/Sodium (Phospha 250 Neutral 155-852-130 Mg) 1 tab QID PO 12/02/17 13:00 01/01/18 12:59 12/08/17 11:10 1 TAB Oxycodone HCl (Roxicodone Soln) 5 mg Q4 PRN PO 12/03/17 08:45 12/17/17 08:44 12/07/17 01:46 5 MG Scopolamine (Transderm-Scop Patch) 1.5 mg Q72H TD 12/03/17 08:45 01/02/18 08:44 12/06/17 09:26 1.5 MG Miscellaneous (Remove Transderm-Scop Patch) 1 ea Q72H N/A 12/06/17 08:44 01/05/18 08:43 12/06/17 08:44 1 EA Miscellaneous Information (Check Scopolamine Patch Placement) 1 ea QS N/A 12/03/17 16:00 01/02/18 15:59 12/08/17 07:59 1 EA Fentanyl (Duragesic Patch) 25 mcg Q72H TD 12/04/17 09:45 12/18/17 09:44 12/07/17 08:57 25 MCG Miscellaneous (Fentanyl Patch Remove & Waste) 1 ea Q3D@0944 N/A 12/04/17 09:44 01/03/18 09:43 12/07/17 08:58 1 EA Miscellaneous Information (Check Fentanyl Patch Placement) 1 ea QS N/A 12/04/17 16:00 01/03/18 15:59 12/08/17 08:07 1 EA Miscellaneous (Fentanyl Patch Remove & Waste) 1 ea Q3D@0944 N/A 12/07/17 09:44 01/06/18 09:43 12/07/17 08:57 1 EA Fentanyl (Duragesic Patch) 100 mcg Q3D@0945 TD 12/04/17 09:45 12/18/17 09:44 12/07/17 08:56 100 MCG Miscellaneous Information (Check Fentanyl Patch Placement) 1 ea QS N/A 12/04/17 16:00 01/03/18 15:59 12/08/17 08:07 1 EA Torsemide (Demadex Tab) 20 mg DAILY PO 12/05/17 09:00 12/29/17 09:29 12/08/17 08:00 20 MG Insulin Glargine (Lantus Solostar Pen) BSG UNITS LANTUS... BID SC 12/05/17 21:00 01/04/18 20:59 12/07/17 20:52 8 UNITS Insulin Aspart (novoLOG ASPART) SLIDING SCALE G... ACHS SC 12/05/17 11:00 01/04/18 10:59 12/08/17 09:12 3 UNITS Glucose (Glucose 40% Gel) 15-30 GRAMS 15 GRAMS... UD PRN PO 12/05/17 10:45 01/04/18 10:44 Glucose (Glucose Chew Tab) 4-8 Tablets 4 Tabl... UD PRN PO 12/05/17 10:45 01/04/18 10:44 Dextrose (Dextrose 50% 50ML Syringe) 25-50ML OF 50% DW IV FOR... UD PRN IV 12/05/17 10:45 01/04/18 10:44 Glucagon (Glucagon Inj) 1 mg UD PRN SQ 12/05/17 10:45 01/04/18 10:44 Prednisone (PredniSONE TAB) 10 mg DAILY PO 12/07/17 09:00 01/06/18 08:59 12/08/17 07:57 10 MG Magnesium Chloride (Slow-Mag Tab) 64 mg BID PO 12/08/17 20:00 01/07/18 19:59 Diphenhydramine HCl (Benadryl Cap) 25 mg Q6H PRN PO 12/08/17 08:45 01/07/18 08:44 12/08/17 09:11 25 MG
[2017-12-08] MEDS ORDERED: POLYETHYLENE (MIRALAX) 17 GM PACK PO PRN (20:00)
[2017-12-08] MEDS: PRAVASTATIN SOD 40 MG TAB PO SCH (21:14)
[2017-12-08] MEDS: MAGNESIUM CHLORIDE 64MG DELAYED REL TAB PO SCH (22:32)
[2017-12-08] MEDS: OXYCODONE HCL SOLN 5 MG/5 ML UDC PO PRN (22:43)
[2017-12-09] MEDS: CHECK FENTANYL PATCH PLACEMENT SCH ×8 (00:08→22:12)
[2017-12-09] MEDS: CHECK SCOPOLAMINE PATCH PLACEMENT SCH ×4 (00:09→22:13)
[2017-12-09 00:56] VITALS: BP 101/65; PULSE 102; TEMP 36.7; O2SAT 98
[2017-12-09 04:05] VITALS: BP 98/64; PULSE 132; TEMP 36.7; O2SAT 99
[2017-12-09] MEDS: ONDANSETRON INJ 2 MG/ML 2 ML VIAL IV SCH ×4 (05:17→22:11)
[2017-12-09 07:45] VITALS: BP 103/71; PULSE 105; TEMP 36.6; O2SAT 99
[2017-12-09] MEDS: INSULIN GLARGINE SOLOSTAR 100 UNITS/ML 3 ML PEN SC SCH ×2 (08:00→22:11)
[2017-12-09] MEDS: SCOPOLAMINE 1.5 MG TDSY TD SCH (08:14)
[2017-12-09] MEDS: POT PHOSPHATE MONOBASIC W/ SOD TAB PO SCH ×4 (08:17→19:20)
[2017-12-09] MEDS: CHOLECALCIFEROL 1000 INTER.UNIT TAB PO SCH (08:17)
[2017-12-09] MEDS: FERROUS SULFATE 325 MG TAB PO SCH (08:17)
[2017-12-09] MEDS: PANTOprazole SOD 40 MG TAB PO SCH ×2 (08:17→19:20)
[2017-12-09] MEDS: MAGNESIUM CHLORIDE 64MG DELAYED REL TAB PO SCH ×2 (08:17→19:20)
[2017-12-09] MEDS: THIAMINE HCL 100 MG TAB PO SCH (08:18)
[2017-12-09] MEDS: METOPROLOL SUCC 25MG EXT REL TAB PO SCH (08:18)
[2017-12-09] MEDS: TORSEMIDE 20 MG TAB PO SCH (08:18)
[2017-12-09] MEDS: FLUCONAZOLE 100 MG TAB PO SCH (08:18)
[2017-12-09] MEDS: INSULIN ASPART 100 UNITS/ML 3 ML PEN SC SCH ×4 (09:21→21:00)
[2017-12-09 11:06] VITALS: BP 109/73; PULSE 110; TEMP 36.6; O2SAT 99
[2017-12-09 14:46] VITALS: BP 102/68; PULSE 91; TEMP 36.6; O2SAT 99
[2017-12-09 18:43] VITALS: BP 103/63; PULSE 100; TEMP 36.5; O2SAT 99
[2017-12-09] MEDS: PRAVASTATIN SOD 40 MG TAB PO SCH (19:21)
[2017-12-09] MEDS: OXYCODONE HCL SOLN 5 MG/5 ML UDC PO PRN (22:17)
--- NOTE | 2017-12-09 23:29 | Progress Note ---
Medicine Progress Note Date & Time of Visit: Dec 09, 2017 at 11:30 . Subjective CC: Follow-up visit for dysphagia and other problems. HPI: Recurrent nausea and vomiting this morning with breakfast. Had scrambled eggs and toast. Took morning meds with breakfast. No fever. No significant cough or SOB. Nonexertional chest pain about the same. Gout pain ankle resolved. ROS: as noted above in HPI . Objective Last 8 Hrs Date Time Temp Pulse Resp B/P (MAP) Pulse Ox O2 Delivery O2 Flow Rate FiO2 12/09/17 11:06 36.6 110 17 109/73 (85) 99 12/09/17 08:00 Room Air 12/09/17 07:45 36.6 105 17 103/71 (82) 99 12/09/17 04:05 36.7 132 18 98/64 (75) 99 Room Air Physical Exam: General- no acute distress Head- alopecia Eyes- anicteric Lungs- essentially clear Cardiovascular- irregular; no JVD; 1+ pretibial edema Abdomen- + BS, slightly distended, soft, nontender Extremities- no cyanosis; no calf tenderness; no erythema or tenderness ankle Neuro- alert, oriented Skin- warm & dry . Laboratory Results: Last 24 Hours Test 12/08/17 11:37 12/08/17 16:42 12/08/17 20:32 12/09/17 07:37 Bedside Glucose 105 mg/dl 150 mg/dl 139 mg/dl 96 mg/dl Assessment & Plan ODYNOPHAGIA / DYSPHAGIA Probably due to combination of extrinsic compression on esophagus and esophagitis (radiation and / or Candidal). Recurrent dysphagia / nausea / vomiting with breakfast. Continue PPI, anti-emetics, fluconazole. Continue diet as tolerated. PEG not necessary since he tolerates full liquids and prefers to continue trying solid food as tolerated. SMALL CELL CARCINOMA OF LUNG Management per Medical Oncology. Pain Management assisting with cancer-associated pain with improvement of symptoms. CORONARY ARTERY DISEASE No anginal symptoms; chest pain probably due to malignancy. Holding aspirin because of GI symptoms, recent hemoptysis, recent epistaxis, thrombocytopenia. Continue metoprolol. ATRIAL FIBRILLATION Chronic AF. Rate fast at times. Continue oral metoprolol with additional IV doses as necessary. Stopped anticoagulants because of GI symptoms, recent hemoptysis, recent epistaxis, thrombocytopenia. Consider resuming anticoagulation once chemotherapy has been completed. CHF Chronic left ventricular diastolic heart failure. Compensated. HYPERTENSION Continue metoprolol as noted above. CHRONIC HYPOXIC RESPIRATORY FAILURE Continue oxygen. SLEEP APNEA Does not tolerate CPAP. DM TYPE 2 Hgb A1C 6.3 10/18/17. Blood sugars tend due to acute illness, variable oral intake, steroids, etc. FBS this morning = 96. Lantus / NovoLog per protocol. LEFT ANKLE PAIN Suspect recurrent gout flare. Uric acid 8.6. IV methylprednisolone given x 2 doses with improvement. Transitioned to oral therapy with prednisone. PANCYTOPENIA Secondary to chemotherapy. Persistent anemia; leukopenia and thrombocytopenia improved. NUTRITION Diet / supplements as discussed above. Nutrition following. VTE PROPHYLAXIS No anticoagulants due to thrombocytopenia and GI symptoms. SCD's. Ambulate as able. DISPOSITION Patient hopes to be discharged to home where he lives alone. Primary care follow-up with Dr. James. Hematology / Oncology follow-up with Drs. Olsen and Lorenza. . Continued [facility] stay due to: multiple IV medications needed Discharge planning: uncertain Consultants: Medical Oncology Pain Management Palliative Care . Current Inpatient Medications: Current Inpatient Medications Medications (Trade) Dose Ordered Sig/Elizabeth Route Start Time Stop Time Status Last Admin Dose Admin Cyclobenzaprine HCl (Flexeril Tab) 10 mg HS PRN PO 11/24/17 17:15 12/24/17 17:14 12/04/17 09:57 10 MG Eszopiclone (Lunesta Tab) 1 mg HS PRN PO 11/24/17 17:15 12/24/17 17:14 Nitroglycerin (Nitrostat Tab) 0.4 mg UD PRN SL 11/24/17 17:15 12/24/17 17:14 Cholecalciferol (Vitamin D Tab) 2,000 inter.unit DAILY PO 11/25/17 08:00 12/25/17 08:59 12/09/17 08:17 2,000 INTER.UNIT Ferrous Sulfate (Feosol Tab) 325 mg DAILY PO 11/25/17 08:00 12/25/17 08:59 12/09/17 08:17 325 MG Ondansetron HCl (Zofran Inj) 4 mg Q6H IV 11/25/17 17:00 12/24/17 16:59 12/09/17 05:17 4 MG Lidocaine HCl (Viscous Lidocaine 2% Soln) 20 ml Q6H PRN MT 11/25/17 16:30 12/25/17 16:29 11/26/17 13:39 20 ML Pravastatin Sodium (Pravachol Tab) 80 mg HS PO 11/30/17 21:00 12/30/17 20:59 12/08/17 21:14 80 MG Fluconazole (Diflucan Tab) 100 mg QAM PO 12/01/17 09:00 12/11/17 08:59 12/09/17 08:18 100 MG Pantoprazole Sodium (Protonix Tab) 40 mg BID PO 11/30/17 21:00 12/30/17 20:59 12/09/17 08:17 40 MG Thiamine HCl (Vitamin B-1 Tab) 100 mg QAM PO 12/01/17 09:00 12/31/17 08:59 12/09/17 08:18 100 MG Metoprolol Succinate (Toprol Xl Tab) 25 mg QAM PO 12/01/17 09:00 12/31/17 08:59 12/09/17 08:18 25 MG Heparin Sodium (Porcine) (Heparin 10 Unit/ ml 5 ml Flush) 5 ml PRN PRN FLUSH 11/30/17 16:30 12/30/17 16:29 12/08/17 16:37 5 ML Potassium/ Phosphorus/Sodium (Phospha 250 Neutral 155-852-130 Mg) 1 tab QID PO 12/02/17 13:00 01/01/18 12:59 12/09/17 08:17 1 TAB Oxycodone HCl (Roxicodone Soln) 5 mg Q4 PRN PO 12/03/17 08:45 12/17/17 08:44 12/08/17 22:43 5 MG Scopolamine (Transderm-Scop Patch) 1.5 mg Q72H TD 12/03/17 08:45 01/02/18 08:44 12/09/17 08:14 1.5 MG Miscellaneous (Remove Transderm-Scop Patch) 1 ea Q72H N/A 12/06/17 08:44 01/05/18 08:43 12/09/17 08:15 1 EA Miscellaneous Information (Check Scopolamine Patch Placement) 1 ea QS N/A 12/03/17 16:00 01/02/18 15:59 12/09/17 08:15 1 EA Fentanyl (Duragesic Patch) 25 mcg Q72H TD 12/04/17 09:45 12/18/17 09:44 12/07/17 08:57 25 MCG Miscellaneous (Fentanyl Patch Remove & Waste) 1 ea Q3D@0944 N/A 12/04/17 09:44 01/03/18 09:43 12/07/17 08:58 1 EA Miscellaneous Information (Check Fentanyl Patch Placement) 1 ea QS N/A 12/04/17 16:00 01/03/18 15:59 12/09/17 08:14 1 EA Miscellaneous (Fentanyl Patch Remove & Waste) 1 ea Q3D@0944 N/A 12/07/17 09:44 01/06/18 09:43 12/07/17 08:57 1 EA Fentanyl (Duragesic Patch) 100 mcg Q3D@0945 TD 12/04/17 09:45 12/18/17 09:44 12/07/17 08:56 100 MCG Miscellaneous Information (Check Fentanyl Patch Placement) 1 ea QS N/A 12/04/17 16:00 01/03/18 15:59 12/09/17 08:14 1 EA Torsemide (Demadex Tab) 20 mg DAILY PO 12/05/17 09:00 12/29/17 09:29 12/09/17 08:18 20 MG Insulin Glargine (Lantus Solostar Pen) BSG UNITS LANTUS... BID SC 12/05/17 21:00 01/04/18 20:59 12/08/17 21:17 6 UNITS Insulin Aspart (novoLOG ASPART) SLIDING SCALE G... ACHS SC 12/05/17 11:00 01/04/18 10:59 12/08/17 18:13 2 UNITS Glucose (Glucose 40% Gel) 15-30 GRAMS 15 GRAMS... UD PRN PO 12/05/17 10:45 01/04/18 10:44 Glucose (Glucose Chew Tab) 4-8 Tablets 4 Tabl... UD PRN PO 12/05/17 10:45 01/04/18 10:44 Dextrose (Dextrose 50% 50ML Syringe) 25-50ML OF 50% DW IV FOR... UD PRN IV 12/05/17 10:45 01/04/18 10:44 Glucagon (Glucagon Inj) 1 mg UD PRN SQ 12/05/17 10:45 01/04/18 10:44 Prednisone (PredniSONE TAB) 10 mg DAILY PO 12/07/17 09:00 01/06/18 08:59 12/09/17 08:19 10 MG Magnesium Chloride (Slow-Mag Tab) 64 mg BID PO 12/08/17 20:00 01/07/18 19:59 12/09/17 08:17 64 MG Diphenhydramine HCl (Benadryl Cap) 25 mg Q6H PRN PO 12/08/17 08:45 01/07/18 08:44 12/08/17 21:11 25 MG Polyethylene (Miralax Powder Packet) 17 gm BID PRN PO 12/08/17 20:00 12/25/17 19:59
[2017-12-10] VITALS (7 sets, daily range): BP systolic 102–126; BP diastolic 66–77; PULSE 100–110; TEMP 36.3–36.6; O2SAT 97–99
[2017-12-10] MEDS: ONDANSETRON INJ 2 MG/ML 2 ML VIAL IV SCH ×4 (05:21→22:59)
[2017-12-10] MEDS: CHECK FENTANYL PATCH PLACEMENT SCH ×4 (08:00→16:00)
[2017-12-10] MEDS: INSULIN GLARGINE SOLOSTAR 100 UNITS/ML 3 ML PEN SC SCH ×2 (08:00→21:33)
[2017-12-10] MEDS: CHECK SCOPOLAMINE PATCH PLACEMENT SCH ×2 (08:00→16:00)
[2017-12-10] MEDS: CHOLECALCIFEROL 1000 INTER.UNIT TAB PO SCH (08:32)
[2017-12-10] MEDS: FERROUS SULFATE 325 MG TAB PO SCH (08:32)
[2017-12-10] MEDS: METOPROLOL SUCC 25MG EXT REL TAB PO SCH (08:32)
[2017-12-10] MEDS: PANTOprazole SOD 40 MG TAB PO SCH ×2 (08:33→20:21)
[2017-12-10] MEDS: THIAMINE HCL 100 MG TAB PO SCH (08:33)
[2017-12-10] MEDS: FLUCONAZOLE 100 MG TAB PO SCH (08:33)
[2017-12-10] MEDS: TORSEMIDE 20 MG TAB PO SCH (08:34)
[2017-12-10] MEDS: POT PHOSPHATE MONOBASIC W/ SOD TAB PO SCH ×4 (08:34→20:22)
[2017-12-10] MEDS: MAGNESIUM CHLORIDE 64MG DELAYED REL TAB PO SCH ×2 (08:34→20:21)
[2017-12-10] MEDS: FENTANYL PATCH REMOVE & WASTE SCH ×2 (08:36→09:44)
[2017-12-10] MEDS: INSULIN ASPART 100 UNITS/ML 3 ML PEN SC SCH ×4 (08:36→21:33)
[2017-12-10] MEDS: FENTANYL 100 MCG/HR TDSY TD SCH (08:43)
[2017-12-10] MEDS: FENTANYL 25 MCG/HR TDSY TD SCH (08:43)
[2017-12-10] MEDS: PRAVASTATIN SOD 40 MG TAB PO SCH (20:21)
--- NOTE | 2017-12-10 20:30 | Progress Note ---
Medicine Progress Note Date & Time of Visit: Dec 10, 2017 at 18:20 . Subjective CC: Follow-up visit for lung Ca, dysphagia, and other problems. HPI: Better today. Less dysphagia / nausea; no emesis. Moving bowels. Pain under fairly good control. Rare cough. Dyspnea on exertion,but improved. Chest discomfort with activity seems to be related to lung Ca. Ambulating. ROS: General- no fever, no chills Resp- as noted above in HPI Cardiac- as noted above in HPI GI- as noted above in HPI - no dysuria . Objective Last 8 Hrs Date Time Temp Pulse Resp B/P (MAP) Pulse Ox O2 Delivery O2 Flow Rate FiO2 12/10/17 19:17 36.6 110 16 126/77 (93) 97 Room Air 12/10/17 16:00 97 Room Air 0.0 12/10/17 14:57 36.6 103 16 112/72 (85) 99 Physical Exam: General- no acute distress Head- alopecia Eyes- anicteric Lungs- essentially clear Cardiovascular- irregular; no JVD; 1+ pretibial edema Abdomen- + BS, slightly distended, soft, nontender Extremities- no cyanosis; no calf tenderness; no erythema or tenderness ankle Neuro- alert, oriented Skin- warm & dry . Laboratory Results: Last 24 Hours Test 12/09/17 20:55 12/10/17 08:05 12/10/17 12:05 12/10/17 16:45 Bedside Glucose 150 mg/dl 91 mg/dl 125 mg/dl 155 mg/dl Assessment & Plan ODYNOPHAGIA / DYSPHAGIA Probably due to combination of extrinsic compression on esophagus and esophagitis (radiation and / or Candidal). Recurrent dysphagia / nausea / vomiting with breakfast. Continue PPI, anti-emetics, fluconazole. Advance diet as tolerated. PEG not necessary since he tolerates full liquids and prefers to continue trying solid food as tolerated. SMALL CELL CARCINOMA OF LUNG Management per Medical Oncology. Ongoing chemotherapy and radiation therapy anticipated. Pain Management assisting with cancer-associated pain with improvement of symptoms. CORONARY ARTERY DISEASE No anginal symptoms; chest pain probably due to malignancy. Chest discomfort with activity seems to be related to lung Ca and not angina, although not 100% certain. Aspirin held because of GI symptoms, recent hemoptysis, recent epistaxis, thrombocytopenia. Continue metoprolol. ATRIAL FIBRILLATION Chronic AF. Rate fast at times. Continue oral metoprolol with additional IV doses as necessary. Stopped anticoagulants because of GI symptoms, recent hemoptysis, recent epistaxis, thrombocytopenia. Consider resuming anticoagulation once chemotherapy has been completed. CHF Chronic left ventricular diastolic heart failure. Compensated. HYPERTENSION Continue metoprolol as noted above. CHRONIC HYPOXIC RESPIRATORY FAILURE Continue oxygen. SLEEP APNEA Does not tolerate CPAP. DM TYPE 2 Hgb A1C 6.3 10/18/17. Blood sugars tend due to acute illness, variable oral intake, steroids, etc. FBS this morning = 91. Lantus / NovoLog per protocol. LEFT ANKLE PAIN Suspect recurrent gout flare. Uric acid 8.6. IV methylprednisolone given x 2 doses with improvement. Transitioned to oral therapy with prednisone. PANCYTOPENIA Secondary to chemotherapy. Persistent anemia; leukopenia and thrombocytopenia improved. Check f/u CBC in a.m. NUTRITION Diet / supplements as discussed above. Nutrition following. VTE PROPHYLAXIS No anticoagulants due to thrombocytopenia and GI symptoms. SCD's. Ambulate as able. DISPOSITION Patient hopes to be discharged to home where he lives alone. Primary care follow-up with Dr. James. Hematology / Oncology follow-up with Drs. Olsen and Lorenza. . Continued [facility] stay due to: multiple IV medications needed Discharge planning: uncertain Consultants: Medical Oncology Pain Management Palliative Care . Current Inpatient Medications: Current Inpatient Medications Medications (Trade) Dose Ordered Sig/Elizabeth Route Start Time Stop Time Status Last Admin Dose Admin Cyclobenzaprine HCl (Flexeril Tab) 10 mg HS PRN PO 11/24/17 17:15 12/24/17 17:14 12/04/17 09:57 10 MG Eszopiclone (Lunesta Tab) 1 mg HS PRN PO 11/24/17 17:15 12/24/17 17:14 Nitroglycerin (Nitrostat Tab) 0.4 mg UD PRN SL 11/24/17 17:15 12/24/17 17:14 Cholecalciferol (Vitamin D Tab) 2,000 inter.unit DAILY PO 11/25/17 08:00 12/25/17 08:59 12/10/17 08:32 2,000 INTER.UNIT Ferrous Sulfate (Feosol Tab) 325 mg DAILY PO 11/25/17 08:00 12/25/17 08:59 12/10/17 08:32 325 MG Ondansetron HCl (Zofran Inj) 4 mg Q6H IV 11/25/17 17:00 12/24/17 16:59 12/10/17 17:37 4 MG Lidocaine HCl (Viscous Lidocaine 2% Soln) 20 ml Q6H PRN MT 11/25/17 16:30 12/25/17 16:29 11/26/17 13:39 20 ML Pravastatin Sodium (Pravachol Tab) 80 mg HS PO 11/30/17 21:00 12/30/17 20:59 12/10/17 20:21 80 MG Fluconazole (Diflucan Tab) 100 mg QAM PO 12/01/17 09:00 12/11/17 08:59 12/10/17 08:33 100 MG Pantoprazole Sodium (Protonix Tab) 40 mg BID PO 11/30/17 21:00 12/30/17 20:59 12/10/17 20:21 40 MG Thiamine HCl (Vitamin B-1 Tab) 100 mg QAM PO 12/01/17 09:00 12/31/17 08:59 12/10/17 08:33 100 MG Metoprolol Succinate (Toprol Xl Tab) 25 mg QAM PO 12/01/17 09:00 12/31/17 08:59 12/10/17 08:32 25 MG Heparin Sodium (Porcine) (Heparin 10 Unit/ ml 5 ml Flush) 5 ml PRN PRN FLUSH 11/30/17 16:30 12/30/17 16:29 12/10/17 11:26 5 ML Potassium/ Phosphorus/Sodium (Phospha 250 Neutral 155-852-130 Mg) 1 tab QID PO 12/02/17 13:00 01/01/18 12:59 12/10/17 20:22 1 TAB Oxycodone HCl (Roxicodone Soln) 5 mg Q4 PRN PO 12/03/17 08:45 12/17/17 08:44 12/09/17 22:17 5 MG Scopolamine (Transderm-Scop Patch) 1.5 mg Q72H TD 12/03/17 08:45 01/02/18 08:44 12/09/17 08:14 1.5 MG Miscellaneous (Remove Transderm-Scop Patch) 1 ea Q72H N/A 12/06/17 08:44 01/05/18 08:43 12/09/17 08:15 1 EA Miscellaneous Information (Check Scopolamine Patch Placement) 1 ea QS N/A 12/03/17 16:00 01/02/18 15:59 12/10/17 16:00 1 EA Fentanyl (Duragesic Patch) 25 mcg Q72H TD 12/04/17 09:45 12/18/17 09:44 12/10/17 08:43 25 MCG Miscellaneous (Fentanyl Patch Remove & Waste) 1 ea Q3D@0944 N/A 12/04/17 09:44 01/03/18 09:43 12/10/17 08:36 1 EA Miscellaneous Information (Check Fentanyl Patch Placement) 1 ea QS N/A 12/04/17 16:00 01/03/18 15:59 12/10/17 16:00 1 EA Miscellaneous (Fentanyl Patch Remove & Waste) 1 ea Q3D@0944 N/A 12/07/17 09:44 01/06/18 09:43 12/07/17 08:57 1 EA Fentanyl (Duragesic Patch) 100 mcg Q3D@0945 TD 12/04/17 09:45 12/18/17 09:44 12/10/17 08:43 100 MCG Miscellaneous Information (Check Fentanyl Patch Placement) 1 ea QS N/A 12/04/17 16:00 01/03/18 15:59 12/10/17 16:00 1 EA Torsemide (Demadex Tab) 20 mg DAILY PO 12/05/17 09:00 12/29/17 09:29 12/10/17 08:34 20 MG Insulin Glargine (Lantus Solostar Pen) BSG UNITS LANTUS... BID SC 12/05/17 21:00 01/04/18 20:59 12/09/17 22:11 8 UNITS Insulin Aspart (novoLOG ASPART) SLIDING SCALE G... ACHS SC 12/05/17 11:00 01/04/18 10:59 12/10/17 17:44 3 UNITS Glucose (Glucose 40% Gel) 15-30 GRAMS 15 GRAMS... UD PRN PO 12/05/17 10:45 01/04/18 10:44 Glucose (Glucose Chew Tab) 4-8 Tablets 4 Tabl... UD PRN PO 12/05/17 10:45 01/04/18 10:44 Dextrose (Dextrose 50% 50ML Syringe) 25-50ML OF 50% DW IV FOR... UD PRN IV 12/05/17 10:45 01/04/18 10:44 Glucagon (Glucagon Inj) 1 mg UD PRN SQ 12/05/17 10:45 01/04/18 10:44 Prednisone (PredniSONE TAB) 10 mg DAILY PO 12/07/17 09:00 01/06/18 08:59 12/10/17 08:33 10 MG Magnesium Chloride (Slow-Mag Tab) 64 mg BID PO 12/08/17 20:00 01/07/18 19:59 12/10/17 20:21 64 MG Diphenhydramine HCl (Benadryl Cap) 25 mg Q6H PRN PO 12/08/17 08:45 01/07/18 08:44 12/08/17 21:11 25 MG Polyethylene (Miralax Powder Packet) 17 gm BID PRN PO 12/08/17 20:00 12/25/17 19:59
[2017-12-11 00:09] VITALS: BP 107/73; PULSE 97; TEMP 36.7; O2SAT 97
[2017-12-11] MEDS: OXYCODONE HCL SOLN 5 MG/5 ML UDC PO PRN (00:32)
[2017-12-11] MEDS: CHECK FENTANYL PATCH PLACEMENT SCH ×4 (00:32→08:03)
[2017-12-11] MEDS: CHECK SCOPOLAMINE PATCH PLACEMENT SCH ×2 (00:34→08:03)
[2017-12-11 04:05] VITALS: BP 94/61; PULSE 104; TEMP 36.6; O2SAT 95
[2017-12-11] MEDS: ONDANSETRON INJ 2 MG/ML 2 ML VIAL IV SCH ×2 (05:26→11:31)
[2017-12-11 05:41] LABS: HEMATOCRIT 23.8 % (42-52); HEMOGLOBIN 7.9 g/dL (14.0-18.0); MEAN CELL VOLUME 90.5 fL (80-100); MEAN CORPUSCULAR HGB CONC 33.2 g/dl (32-36); MEAN PLATELET VOLUME 10.1 fL (7.4-10.4); NUCLEATED RED BLOOD CELL ABS 0.11 K/uL (0-0); PLATELET COUNT 239 K/uL (130-400); RED CELL DISTRIBUTION WIDTH CV 19.8 % (11.5-14.5); RED CELL DISTRIBUTION WIDTH SD 49.5 fL (36.4-46.3); WHITE BLOOD COUNT 2.73 K/uL (4.8-10.8)
[2017-12-11 06:16] LABS: CALCIUM 8.7 mg/dl (8.5-10.1); CREATININE 1.24 mg/dl (0.60-1.40); POTASSIUM 3.5 mmol/L (3.5-5.1)
[2017-12-11 08:00] VITALS: BP 90/63
[2017-12-11] MEDS: FERROUS SULFATE 325 MG TAB PO SCH (08:00)
[2017-12-11] MEDS: TORSEMIDE 20 MG TAB PO SCH (08:00)
[2017-12-11] MEDS: FLUCONAZOLE 100 MG TAB PO SCH (08:00)
[2017-12-11] MEDS: METOPROLOL SUCC 25MG EXT REL TAB PO SCH (08:00)
[2017-12-11] MEDS: CHOLECALCIFEROL 1000 INTER.UNIT TAB PO SCH (08:01)
[2017-12-11] MEDS: MAGNESIUM CHLORIDE 64MG DELAYED REL TAB PO SCH (08:01)
[2017-12-11] MEDS: THIAMINE HCL 100 MG TAB PO SCH (08:01)
[2017-12-11] MEDS: POT PHOSPHATE MONOBASIC W/ SOD TAB PO SCH ×2 (08:01→12:18)
[2017-12-11] MEDS: PANTOprazole SOD 40 MG TAB PO SCH (08:01)
[2017-12-11] MEDS: INSULIN GLARGINE SOLOSTAR 100 UNITS/ML 3 ML PEN SC SCH (08:05)
[2017-12-11 08:06] VITALS: BP 90/63; PULSE 100; TEMP 36.5; O2SAT 97
[2017-12-11] MEDS: INSULIN ASPART 100 UNITS/ML 3 ML PEN SC SCH ×2 (09:08→13:21)
[2017-12-11 11:45] VITALS: BP 95/63; PULSE 110; TEMP 36.3; O2SAT 100
[2017-12-11] MEDS ORDERED: DRGTP100 TD (13:25)
[2017-12-11] MEDS ORDERED: LANS30TA3 PO (13:25)
[2017-12-11] MEDS ORDERED: METH4PAK PO (13:25)
[2017-12-11] MEDS ORDERED: DRGTP25 TD (13:25)
[2017-12-11] MEDS ORDERED: RXCS5 PO (13:25)
[2017-12-11] MEDS ORDERED: DMD20 PO (13:25)
[2017-12-11] MEDS ORDERED: FENTANYL 25 MCG/HR TDSY TD SCH (13:45)
[2017-12-11] MEDS ORDERED: FENTANYL 100 MCG/HR TDSY TD SCH (13:45)
--- NOTE | 2017-12-11 13:47 | Discharge Instructions ---
Discharge Instructions Date of Service Dec 11, 2017. Admission Reason for Admission: lung cancer, trouble swallowing . Discharge Discharge Diagnosis / Problem: lung cancer, trouble swallowing Discharge Goals Goal(s): Decrease discomfort, Improve function, Improve disease control Activity Recommendations Activity Limitations: as noted below Lifting Limitations: gradually increase as tolerated Exercise/Sports Limitations: gradually increase as tolerated . Instructions / Follow-Up Instructions / Follow-Up APPOINTMENTS: MEDICAL ONCOLOGY Drs. Olsen and Lorenza as scheduled. RADIATION ONCOLOGY As scheduled. PRIMARY CARE Drew James, DO OTHER INSTRUCTIONS: Diet should be soft and slippery. Small bites, small portions. Don't eat too fast. Use nutritional supplements as instructed. Current pain medications: fentanyl (Duragesic) patches 125 mg changed every 3 days (use 100 mcg + 25 mcg together) new patches applied 12/11/17 next change 12/14/17 oxycodone liquid 5 mg / 5 ml 5 mg = 5 ml = 1 tsp every 4 hours as needed for breakthrough pain We are not allowed to give refills on these pain medications. Ask Drs. Olsen and Lorenza for refills before you run out. Use methylprednisolone (Medrol Dosepak) as instructed for gout attacks. Seek medical attention if you have: * temperature above 101 * chest pain or trouble breathing * abdominal pain, trouble swallowing, nausea, vomiting * diarrhea, dark stools or bloody stools * any unanswered questions or concerns Call [phone] if symptoms are severe. Call if you have any questions or problems. My cell # is [phone]. You can also reach a [facility] hospitalist on duty at [facility] 24 hours a day by calling [phone]. Please take good care of yourself. Mohsen Abdullahi . Current Hospital Diet Patient's current hospital diet: Regular Diet Discharge Diet Recommended Diet: Regular Diet (soft / slippery food) Procedures Procedures Performed: CT head CT abdomen Pending Studies Studies pending at discharge: no Laboratory Results Hemoglobin A1c Test 10/18/17 06:43 Range/Units Estimated Average Glucose 134 mg/dl Hemoglobin A1c 6.3 H 4.5-5.6 % Lipid Panel Test 10/18/17 06:43 10/23/17 05:29 Range/Units Triglycerides Level 210 H 198 H 0-150 mg/dl Cholesterol Level 123 0-200 mg/dl HDL Cholesterol 48 mg/dl Cholesterol/HDL Ratio 2.6 LDL Cholesterol, Calculated 33 mg/dl Medical Emergencies . Who to Call and When: Medical Emergencies: If at any time you feel your situation is an emergency, please call 911 immediately. . Non-Emergent Contact Non-Emergency issues call your: Primary Care Provider, Hospital Doctor, Oncologist . . "Provider Documentation" section prepared by Mohsen Abdullahi. . VTE Core Measure Inpt VTE Proph given/why not?: Other Anticoagulation (apixaban), SCD's [place] Drug Monitoring Program Search Results: patient reviewed within database, no issues identified
[2017-12-11 13:59] VITALS: BP 95/63; PULSE 110; TEMP 36.3; O2SAT 100
[2017-12-11] MEDS ORDERED: FENTANYL PATCH REMOVE & WASTE ONE ×2 (14:30)
[2017-12-11] MEDS ORDERED: CHECK FENTANYL PATCH PLACEMENT SCH ×2 (16:00)
--- NOTE | 2017-12-11 21:00 | Progress Note ---
Medicine Progress Note Date & Time of Visit: Dec 11, 2017 at ~ 11:30 . Subjective CC: Follow-up visit for lung Ca, dysphagia, and other problems. HPI: Tolerating diet as long as he is careful with portions and consistency. Last BM 2 days ago. Pain under fairly good control. Rare cough. Mild dyspnea on exertion. Chest discomfort with activity seems to be related to lung Ca, not angina. Ambulating in hallway. Ready to go home. ROS: General- no fever, no chills Resp- as noted above in HPI Cardiac- as noted above in HPI GI- as noted above in HPI - no dysuria . Objective Last 8 Hrs Date Time Temp Pulse Resp B/P (MAP) Pulse Ox O2 Delivery O2 Flow Rate FiO2 12/11/17 11:45 36.3 110 18 95/63 (74) 100 Room Air 12/11/17 11:26 Room Air 12/11/17 08:06 36.5 100 17 90/63 (72) 97 Room Air 12/11/17 08:00 90/63 (72) Physical Exam: General- sitting in chair; no acute distress Head- alopecia Eyes- anicteric Lungs- clear to auscultation Cardiovascular- irregular; no JVD; 1+ pretibial edema Abdomen- + BS, slightly distended, soft, nontender Extremities- no cyanosis; no calf tenderness; no erythema or tenderness ankle Neuro- alert, oriented Skin- warm & dry . Laboratory Results: Last 24 Hours Test 12/10/17 16:45 12/10/17 20:38 12/11/17 05:26 12/11/17 07:41 Bedside Glucose 155 mg/dl 145 mg/dl 118 mg/dl White Blood Count 2.73 K/uL Red Blood Count 2.63 M/uL Hemoglobin 7.9 g/dL Hematocrit 23.8 % Mean Corpuscular Volume 90.5 fL Mean Corpuscular Hemoglobin 30.0 pg Mean Corpuscular Hemoglobin Concent 33.2 g/dl RDW Standard Deviation 49.5 fL RDW Coefficient of Variation 19.8 % Platelet Count 239 K/uL Mean Platelet Volume 10.1 fL Nucleated RBC Absolute Count (auto) 0.11 K/uL Nucleated Red Blood Cells % 3.9 % Sodium Level 137 mmol/L Potassium Level 3.5 mmol/L Chloride Level 96 mmol/L Carbon Dioxide Level 31 mmol/L Anion Gap 10.0 mmol/L Blood Urea Nitrogen 14 mg/dl Creatinine 1.24 mg/dl Est Creatinine Clear Calc Drug Dose 76.0 ml/min Estimated GFR () 74.9 Estimated GFR (Non- 64.6 BUN/Creatinine Ratio 11.1 Random Glucose 116 mg/dl Calcium Level 8.7 mg/dl Test 12/11/17 11:47 Bedside Glucose 124 mg/dl Assessment & Plan ODYNOPHAGIA / DYSPHAGIA Probably due to combination of extrinsic compression on esophagus and esophagitis (radiation and / or Candidal). Recurrent dysphagia / nausea / vomiting with breakfast. Continue PPI, anti-emetics, fluconazole. Advance diet as tolerated. PEG not necessary since he tolerates full liquids and prefers to continue trying solid food as tolerated. SMALL CELL CARCINOMA OF LUNG Management per Medical Oncology. Ongoing chemotherapy and radiation therapy anticipated. Pain Management assisting with cancer-associated pain with improvement of symptoms. CORONARY ARTERY DISEASE No anginal symptoms; chest pain probably due to malignancy. Chest discomfort with activity seems to be related to lung Ca and not angina, although not 100% certain. Aspirin held because of GI symptoms, recent hemoptysis, recent epistaxis, thrombocytopenia. Continue metoprolol. ATRIAL FIBRILLATION Chronic AF. Rate fast at times. Continue oral metoprolol with additional IV doses as necessary. Held anticoagulants because of GI symptoms, recent hemoptysis, recent epistaxis , thrombocytopenia. Patient at high risk for cardiac thrombi / emboli. Platelet count has recovered. No recent epistaxis or hemoptysis. Resume apixaban with caution; may need to be held intermittently for chemo- induced thrombocytopenia or abnormal bleeding. CHF Chronic left ventricular diastolic heart failure. Compensated on torsemide once daily. HYPERTENSION Continue metoprolol. CHRONIC HYPOXIC RESPIRATORY FAILURE Continue oxygen HS. SLEEP APNEA Does not tolerate CPAP. DM TYPE 2 Hgb A1C 6.3 10/18/17. Blood sugars tend due to acute illness, variable oral intake, steroids, etc. Lantus / NovoLog per protocol during hospital stay. FBS this morning = 118. Resume usual regimen at time of discharge. LEFT ANKLE PAIN Suspect recurrent gout flare. Uric acid 8.6. IV methylprednisolone given x 2 doses with improvement. Transitioned to oral therapy with prednisone. Given Rx for Medrol Dosepak PRN. Consider starting allopurinol at low dose in a few weeks with gradual dose adjustment. PANCYTOPENIA Secondary to chemotherapy and underlying Ca. CBC 12/11/16: Hgb 7.9 WBC 2730 plts 239,000 NUTRITION Diet / supplements as discussed above. Nutrition following. VTE PROPHYLAXIS No anticoagulants due to thrombocytopenia and GI symptoms. SCD's. Ambulating DISPOSITION Discharge to home. Home health services offered, but patient declined. Primary care follow-up with Dr. James. Hematology / Oncology follow-up with Drs. Olsen and Lorenza. . Continued [facility] stay due to: multiple IV medications needed Discharge planning: uncertain Consultants: Medical Oncology Pain Management Palliative Care . Current Inpatient Medications: Current Inpatient Medications Medications (Trade) Dose Ordered Sig/Elizabeth Route Start Time Stop Time Status Last Admin Dose Admin Cyclobenzaprine HCl (Flexeril Tab) 10 mg HS PRN PO 11/24/17 17:15 12/24/17 17:14 12/04/17 09:57 10 MG Eszopiclone (Lunesta Tab) 1 mg HS PRN PO 11/24/17 17:15 12/24/17 17:14 Nitroglycerin (Nitrostat Tab) 0.4 mg UD PRN SL 11/24/17 17:15 12/24/17 17:14 Cholecalciferol (Vitamin D Tab) 2,000 inter.unit DAILY PO 11/25/17 08:00 12/25/17 08:59 12/11/17 08:01 2,000 INTER.UNIT Ferrous Sulfate (Feosol Tab) 325 mg DAILY PO 11/25/17 08:00 12/25/17 08:59 12/11/17 08:00 325 MG Ondansetron HCl (Zofran Inj) 4 mg Q6H IV 11/25/17 17:00 12/24/17 16:59 12/11/17 11:31 4 MG Lidocaine HCl (Viscous Lidocaine 2% Soln) 20 ml Q6H PRN MT 11/25/17 16:30 12/25/17 16:29 11/26/17 13:39 20 ML Pravastatin Sodium (Pravachol Tab) 80 mg HS PO 11/30/17 21:00 12/30/17 20:59 12/10/17 20:21 80 MG Pantoprazole Sodium (Protonix Tab) 40 mg BID PO 11/30/17 21:00 12/30/17 20:59 12/11/17 08:01 40 MG Thiamine HCl (Vitamin B-1 Tab) 100 mg QAM PO 12/01/17 09:00 12/31/17 08:59 12/11/17 08:01 100 MG Metoprolol Succinate (Toprol Xl Tab) 25 mg QAM PO 12/01/17 09:00 12/31/17 08:59 12/10/17 08:32 25 MG Heparin Sodium (Porcine) (Heparin 10 Unit/ ml 5 ml Flush) 5 ml PRN PRN FLUSH 11/30/17 16:30 12/30/17 16:29 12/11/17 11:31 5 ML Potassium/ Phosphorus/Sodium (Phospha 250 Neutral 155-852-130 Mg) 1 tab QID PO 12/02/17 13:00 01/01/18 12:59 12/11/17 12:18 1 TAB Oxycodone HCl (Roxicodone Soln) 5 mg Q4 PRN PO 12/03/17 08:45 12/17/17 08:44 12/11/17 00:32 5 MG Scopolamine (Transderm-Scop Patch) 1.5 mg Q72H TD 12/03/17 08:45 01/02/18 08:44 12/09/17 08:14 1.5 MG Miscellaneous (Remove Transderm-Scop Patch) 1 ea Q72H N/A 12/06/17 08:44 01/05/18 08:43 12/09/17 08:15 1 EA Miscellaneous Information (Check Scopolamine Patch Placement) 1 ea QS N/A 12/03/17 16:00 01/02/18 15:59 12/11/17 08:03 1 EA Fentanyl (Duragesic Patch) 25 mcg Q72H TD 12/04/17 09:45 12/18/17 09:44 12/10/17 08:43 25 MCG Miscellaneous (Fentanyl Patch Remove & Waste) 1 ea Q3D@0944 N/A 12/04/17 09:44 01/03/18 09:43 12/10/17 08:36 1 EA Miscellaneous Information (Check Fentanyl Patch Placement) 1 ea QS N/A 12/04/17 16:00 01/03/18 15:59 12/11/17 08:03 1 EA Miscellaneous (Fentanyl Patch Remove & Waste) 1 ea Q3D@0944 N/A 12/07/17 09:44 01/06/18 09:43 12/07/17 08:57 1 EA Fentanyl (Duragesic Patch) 100 mcg Q3D@0945 TD 12/04/17 09:45 12/18/17 09:44 12/10/17 08:43 100 MCG Miscellaneous Information (Check Fentanyl Patch Placement) 1 ea QS N/A 12/04/17 16:00 01/03/18 15:59 12/11/17 08:03 1 EA Torsemide (Demadex Tab) 20 mg DAILY PO 12/05/17 09:00 12/29/17 09:29 12/11/17 08:00 20 MG Insulin Glargine (Lantus Solostar Pen) BSG UNITS LANTUS... BID SC 12/05/17 21:00 01/04/18 20:59 12/11/17 08:05 6 UNITS Insulin Aspart (novoLOG ASPART) SLIDING SCALE G... ACHS SC 12/05/17 11:00 01/04/18 10:59 12/11/17 09:08 2 UNITS Glucose (Glucose 40% Gel) 15-30 GRAMS 15 GRAMS... UD PRN PO 12/05/17 10:45 01/04/18 10:44 Glucose (Glucose Chew Tab) 4-8 Tablets 4 Tabl... UD PRN PO 12/05/17 10:45 01/04/18 10:44 Dextrose (Dextrose 50% 50ML Syringe) 25-50ML OF 50% DW IV FOR... UD PRN IV 12/05/17 10:45 01/04/18 10:44 Glucagon (Glucagon Inj) 1 mg UD PRN SQ 12/05/17 10:45 01/04/18 10:44 Prednisone (PredniSONE TAB) 10 mg DAILY PO 12/07/17 09:00 01/06/18 08:59 12/11/17 08:01 10 MG Magnesium Chloride (Slow-Mag Tab) 64 mg BID PO 12/08/17 20:00 01/07/18 19:59 12/11/17 08:01 64 MG Diphenhydramine HCl (Benadryl Cap) 25 mg Q6H PRN PO 12/08/17 08:45 01/07/18 08:44 12/11/17 00:37 25 MG Polyethylene (Miralax Powder Packet) 17 gm BID PRN PO 12/08/17 20:00 12/25/17 19:59
--- NOTE | 2017-12-12 06:11 | Discharge Summary ---
Discharge Summary Date of Service Dec 12, 2017. Discharge Summary Admission Date: Nov 24, 2017 at 17:06 Discharge Date: Dec 11, 2017 Discharge Disposition: Home Principal Diagnosis: small cell carcinoma of lung OTHER ACUTE DIAGNOSES: sepsis acute kidney injury dysphagia esophagitis anemia neutropenia thrombocytopenia gout flare . Secondary Diagnoses/Problems: Chronic and Resolved Medical Problems: (3) GENE (acute kidney injury) Status: Resolved (4) Anticoagulants,Lt,Current Use Status: Chronic (5) Atrial fibrillation Status: Chronic (7) CKD (chronic kidney disease), stage III Status: Chronic (9) Coronary Atherosclerosis Of [place] Coronary Vessel Status: Chronic (10) Diabetes mellitus type 2 Status: Chronic (11) Diastolic heart failure Status: Chronic (12) DM type 2 (diabetes mellitus, type 2) Status: Chronic (13) HTN (hypertension) Status: Chronic (14) Hyperlipidemia Status: Chronic (17) Hypothyroidism Status: Chronic (18) Hypothyroidism Status: Chronic (20) Renal cell carcinoma Status: Resolved (23) Sleep apnea Status: Chronic Surgical Problems: (1) S/p nephrectomy . Procedures: CT head CT abdomen and pelvis transfusion pRBC's transfusion platelets . Consultations: Medical Oncology Pain Management Palliative Care . Medication Reconciliation New Medications: Lansoprazole (Prevacid Solutab) 30 Mg Ramona 30 MG PO BID, #60 TAB 5 Refills Methylprednisolone (Medrol Dosepak) 4 Mg Mitchel 0 PO DAILY PRN for gout, #1 PKT 5 Refills Use as directed as needed for gout attack. Fentanyl (Fentanyl) 100 Mcg Tdsy 100 MCG TD Q3D@0945, #4 PATCH Use with 25 mcg patch for total of 125 mcg. Next change 12/14/17. Fentanyl (Fentanyl) 25 Mcg Tdsy 25 MCG TD Q72H, #4 PATCH Use with 100 mcg patch for total of 125 mcg. Next change 12/14/17. Oxycodone HCl (Oxycodone HCl) 5 Mg/5 Ml Soln 5 MG PO Q4 PRN for Pain, #500 ML 5 mg dose = 5 ml = 1 tsp. Take every 4 hrs as needed for breakthrough pain. Torsemide (Torsemide) 20 Mg Tab 20 MG PO DAILY, #30 TAB 5 Refills Continued Medications: Apixaban (Eliquis) 5 Mg Tab 5 MG PO BID, TAB Cholecalciferol (Vitamin D3 Super Strength) 2,000 Unit Tab 2000 INTER.UNIT PO DAILY Cyclobenzaprine HCl (Cyclobenzaprine HCl) 10 Mg Tab 10 MG PO HS PRN for Muscle Spasms Dulaglutide (Trulicity) 0.75 Mg/0.5 Ml Inj 0.75 MG INJ WK ADMINISTER EVERY SUNDAY Eszopiclone (Eszopiclone) 1 Mg Tab 1 MG PO HS PRN for Sleep Fenofibrate (Fenofibrate) 145 Mg Tab 145 MG PO DAILY Ferrous Sulfate (Ferrousul) 325 Mg Tab 325 MG PO DAILY Home O2 Therapy (Oxygen) Gas 2 LITERS NA HS Lactobacillus (Probiotic Acidophilus) 1 Cap Cap 1 CAP PEG BID Levothyroxine Sodium (Levothyroxine Sodium) 112 Mcg Tab 112 MCG PO DAILY Metoprolol Succinate (Metoprolol Succinate ER) 25 Mg Tabcr 25 MG PO QAM for 30 Days, #30 Nitroglycerin (Nitrostat) 0.4 Mg/1 Tab Subl 0.4 MG SL UD PRN for Chest Pain for 30 Days, #25 Ondansetron Hcl (Zofran) 4 Mg Tab 4 MG PO q6-8h PRN for Nausea or Vomiting, TAB Pravastatin Sodium (Pravastatin Sodium) 80 Mg Tab 80 MG PO DAILY Discontinued Medications: Hydrocodone/Acetaminophen 7.5MG/325MG ([place] 7.5MG/325MG) Tab 1 TAB PO Q4-6HRS PRN for Pain for 10 Days, #30 TAB Lisinopril (Lisinopril) 5 Mg Tab 5 MG PO DAILY Magnesium Oxide (Mg Supplement (Magnesium Oxide) 400 Mg Tab 400 MG PO Q2D Oxycodone Immediate Rel Tab (Roxicodone Ir) 5 Mg Tab 1-2 TAB PO Q4H-6H PRN for Severe Pain, #24 TAB Potassium Ext Rel (Klor-Con) 20 Meq Tabcr 3 TABS PO BID, TAB Torsemide (Torsemide) 20 Mg Tab 10 MG PO QAM for 12 Days, #12 TAB Take 1 tablet daily every Sunday, , Sunday Admission Information HPI (per Admitting provider): HISTORY OF PRESENT COMPLAINT: He is a 57-year-old male with significant past medical history of small cell lung cancer with mediastinal mass and other metastasis, ongoing chemo and radiation, chronic atrial fibrillation, on Eliquis, and diastolic heart failure, apparently has been getting chemo and radiation for his small cell lung cancer. He got his chemo about 2 weeks ago and radiation last Sunday. Last Sunday and before that, he was complaining of ongoing nausea and vomiting and actually on Sunday, he was seen by his oncologist, Dr. Britt and he got intravenous fluid administration on Sunday and Sunday for nausea and vomiting. The condition has not got any better. He continues to have nausea and vomiting. He cannot keep anything down and he is getting weak and tired from it. No fever, chills, or rigors. No cough or phlegm and no problem with urine and/or bowel habits. He is evaluated today in the ER and he has GENE and also he was noted to have a very low neutrophil count of 0.33. From that point, he was admitted to medical floor for continuation of care. . Physical Exam (per Admitting): GENERAL: On examination in the Emergency Room, he is not having any acute distress. VITAL SIGNS: Temperature 36.5, pulse is 124, blood pressure 106/63, and saturation 97% on room air. HEENT: Unremarkable. NECK: Supple. No JVD. No bruit. CHEST: Occasional crackles on the left side. HEART: S1, S2 regular. ABDOMEN: Soft, benign, nontender. No organomegaly. Scar from prior surgery. EXTREMITIES: 1+ edema bilaterally, seems to be chronic skin changes associated with it. MUSCULOSKELETAL: Examination of the musculoskeletal system did not show any acute arthritis. CENTRAL NERVOUS SYSTEM: He is alert, awake, oriented x3. No focal sensory and/or motor deficit appreciated. . Hospital Course SMALL CELL CARCINOMA OF LUNG Management per Medical Oncology. Ongoing chemotherapy and radiation therapy anticipated. Pain Management assisting with cancer-associated pain with improvement of symptoms. SEPSIS Experienced malaise, tachycardia, rigors. Suspected neutropenic sepsis. Received empiric broad-spectrum antibiotic therapy with improvement. Blood cultures negative (except for Corynebacterium). DEHYDRATION / ACUTE KIDNEY INJURY Poor PO intake at time of admission due to GI symptoms. Serum creatinine elevated at 1.45. Received IV fluids with improvement. ODYNOPHAGIA / DYSPHAGIA Presented with nausea, vomiting, dysphagia. Dysphagia probably due to combination of extrinsic compression on esophagus and esophagitis (radiation and / or Candidal). Recurrent dysphagia / nausea / vomiting with breakfast. Treated with PPI, anti-emetics, fluconazole. Advanced diet as tolerated. PEG not indicated since he tolerates full liquids and prefers to continue trying solid food as tolerated. Soft / slippery diet recommended. Tolerating diet by discharge. PANCYTOPENIA Hgb as low as 6.6. WBC as low as 240. Plts as low as 7000. Pancytopenia secondary to chemotherapy and underlying Ca. Received 4 units pRBC's and 3 bags of pheresed platelets. CBC 12/11/16: Hgb 7.9 WBC 2730 plts 239,000 CORONARY ARTERY DISEASE Chest discomfort with activity seems to be related to lung Ca and not angina. Aspirin held because of GI symptoms, recent hemoptysis, recent epistaxis, thrombocytopenia. Continue metoprolol. ATRIAL FIBRILLATION Chronic AF. Rate fast at times. Continued oral metoprolol with additional IV doses as necessary. Held anticoagulants because of GI symptoms, recent hemoptysis, recent epistaxis , thrombocytopenia. Patient at high risk for cardiac thrombi / emboli. Platelet count recovered by time of discharge. No recent epistaxis or hemoptysis. Resume apixaban with caution; may need to be held intermittently for chemo- induced thrombocytopenia or abnormal bleeding. CHF Chronic left ventricular diastolic heart failure. Compensated on torsemide once daily. HYPERTENSION Continue metoprolol. CHRONIC HYPOXIC RESPIRATORY FAILURE / SLEEP APNEA Does not tolerate CPAP. Continue oxygen HS. DM TYPE 2 Hgb A1C 6.3 10/18/17. Blood sugars tend to fluctuate due to acute illness, variable oral intake, steroids, etc. Lantus / NovoLog per protocol during hospital stay. FBS day of discharge was 118. Resumed usual regimen at time of discharge. LEFT ANKLE PAIN Suspect recurrent gout flare. Uric acid 8.6. IV methylprednisolone given x 2 doses with improvement. Transitioned to oral therapy with prednisone. Given Rx for Medrol Dosepak PRN. Consider starting allopurinol at low dose in a few weeks with gradual dose adjustment. NUTRITION Diet / supplements as discussed above. Nutrition following. VTE PROPHYLAXIS No anticoagulants due to thrombocytopenia and GI symptoms. SCD's. Ambulating DISPOSITION Discharge to home. Home health services offered, but patient declined. Primary care follow-up with Dr. James. Hematology / Oncology follow-up with Drs. Olsen and Lorenza. . Total time spent on discharge = 45 min. This includes examination of the patient, discharge planning, medication reconciliation, and communication with other providers. . Discharge Instructions Date of Service Dec 11, 2017. Admission Reason for Admission: lung cancer, trouble swallowing . Discharge Discharge Diagnosis / Problem: lung cancer, trouble swallowing Discharge Goals Goal(s): Decrease discomfort, Improve function, Improve disease control Activity Recommendations Activity Limitations: as noted below Lifting Limitations: gradually increase as tolerated Exercise/Sports Limitations: gradually increase as tolerated . Instructions / Follow-Up Instructions / Follow-Up APPOINTMENTS: MEDICAL ONCOLOGY Drs. Olsen and Lorenza as scheduled. RADIATION ONCOLOGY As scheduled. PRIMARY CARE Drew James, DO OTHER INSTRUCTIONS: Diet should be soft and slippery. Small bites, small portions. Don't eat too fast. Use nutritional supplements as instructed. Current pain medications: fentanyl (Duragesic) patches 125 mg changed every 3 days (use 100 mcg + 25 mcg together) new patches applied 12/11/17 next change 12/14/17 oxycodone liquid 5 mg / 5 ml 5 mg = 5 ml = 1 tsp every 4 hours as needed for breakthrough pain We are not allowed to give refills on these pain medications. Ask Drs. Olsen and Lorenza for refills before you run out. Use methylprednisolone (Medrol Dosepak) as instructed for gout attacks. Seek medical attention if you have: * temperature above 101 * chest pain or trouble breathing * abdominal pain, trouble swallowing, nausea, vomiting * diarrhea, dark stools or bloody stools * any unanswered questions or concerns Call [phone] if symptoms are severe. Call if you have any questions or problems. My cell # is [phone]. You can also reach a [facility] hospitalist on duty at [facility] 24 hours a day by calling [phone]. Please take good care of yourself. Mohsen Abdullahi . Current Hospital Diet Patient's current hospital diet: Regular Diet Discharge Diet Recommended Diet: Regular Diet (soft / slippery food) Procedures Procedures Performed: CT head CT abdomen Pending Studies Studies pending at discharge: no Laboratory Results Hemoglobin A1c Test 10/18/17 06:43 Range/Units Estimated Average Glucose 134 mg/dl Hemoglobin A1c 6.3 H 4.5-5.6 % Lipid Panel Test 10/18/17 06:43 10/23/17 05:29 Range/Units Triglycerides Level 210 H 198 H 0-150 mg/dl Cholesterol Level 123 0-200 mg/dl HDL Cholesterol 48 mg/dl Cholesterol/HDL Ratio 2.6 LDL Cholesterol, Calculated 33 mg/dl Medical Emergencies . Who to Call and When: Medical Emergencies: If at any time you feel your situation is an emergency, please call 911 immediately. . Non-Emergent Contact Non-Emergency issues call your: Primary Care Provider, Hospital Doctor, Oncologist . . "Provider Documentation" section prepared by Mohsen Abdullahi. . VTE Core Measure Inpt VTE Proph given/why not?: Other Anticoagulation (apixaban), SCD's [place] Drug Monitoring Program Search Results: patient reviewed within database, no issues identified . Additional Copies To Brigido Britt D.O.; Drew James D.O.; Luis Enrique Olsen D.O.
[2017-12-14] MEDS ORDERED: FENTANYL PATCH REMOVE & WASTE SCH ×2 (13:45)
== END 2017-12-11 15:00 | disposition home or self-care (01) | DRG 391 ==
LOC: C.EDB 13:31 → C.4E 17:06 → ENRESERV 17:24 → C.2E 11-25 17:39 → ENRESERV 12-07 10:45 → C.4E 12-07 11:27
PROVIDERS: ADMIT Internal Medicine; ATTEND Hospitalist
PROC: 02HV33Z Insertion of Infusion Device into Superior Vena Cava, Percutaneous Approach (ICD-10-PCS; principal; 2017-11-30)
DX: K20.8 Other esophagitis (principal); A41.9 Sepsis, unspecified organism; D61.810 Antineoplastic chemotherapy induced pancytopenia; B37.81 Candidal esophagitis; C34.90 Malignant neoplasm of unspecified part of unspecified bronchus or lung; D61.818 Other pancytopenia; N17.9 Acute kidney failure, unspecified; J96.11 Chronic respiratory failure with hypoxia; I50.32 Chronic diastolic (congestive) heart failure; I13.0 Hypertensive heart and chronic kidney disease with heart failure and stage 1 through stage 4 chronic kidney disease, or unspecified chronic kidney disease; D70.1 Agranulocytosis secondary to cancer chemotherapy; T45.1X5A Adverse effect of antineoplastic and immunosuppressive drugs, initial encounter; T66.XXXA Radiation sickness, unspecified, initial encounter; G89.3 Neoplasm related pain (acute) (chronic); E86.0 Dehydration; R13.10 Dysphagia, unspecified; Z66 Do not resuscitate; I48.2 Chronic atrial fibrillation; M10.9 Gout, unspecified; N18.3 Chronic kidney disease, stage 3 (moderate); E11.22 Type 2 diabetes mellitus with diabetic chronic kidney disease; I25.10 Atherosclerotic heart disease of native coronary artery without angina pectoris; E03.9 Hypothyroidism, unspecified; E78.5 Hyperlipidemia, unspecified; Z79.899 Other long term (current) drug therapy; Z79.01 Long term (current) use of anticoagulants; Z96.21 Cochlear implant status; Z90.5 Acquired absence of kidney; Z87.891 Personal history of nicotine dependence; Z83.3 Family history of diabetes mellitus; Z82.49 Family history of ischemic heart disease and other diseases of the circulatory system; Z82.3 Family history of stroke; Z80.49 Family history of malignant neoplasm of other genital organs